=== PATIENT | male | born 1945 | race Caucasian/White ===

== ENCOUNTER → 2024-01-25 09:14 | Outpatient (REF) | payer MEDICARE, OTHER, SELFPAY | LOC: RAD 09:14 | PROVIDERS: ATTENDING PHYSICIAN Otolaryngology; FAMILY PHYSICIAN Family Medicine | DX: K21.9 Gastro-esophageal reflux disease without esophagitis (principal); R13.14 Dysphagia, pharyngoesophageal phase | CPT/HCPCS: 74221 ==

== ENCOUNTER 2024-03-03 23:46 | Inpatient (IN) | payer MEDICARE, OTHER, SELFPAY ==
[2024-03-03 15:02] VITALS: BP 154/71
--- NOTE | 2024-03-03 18:40 | ED.GENMED ---
History of Present Illness
<Sara Rubi PA-C - Last Filed: 03/04/24 15:47>
General
Chief Complaint: Back Pain
Source: patient
Exam Limitations: none
Time Seen by Provider: 03/03/24 17:17
Nursing documentation reviewed up to this point in time: agreed with
History of Present Illness
History of Present Illness:
pt is a 78 y/o F with h/o afib on eliquis, htn, hld, diverticulitis s/p sigmoidectomy, BPH/frequent urination
here with severe left hip/buttocks pain into anterior part of left thigh to knee x 10 days
says it was mild and he was more ambulatory initially
sypmtoms onset without inciting injury
he was taking tylenol at home without rleief so 1 week ago saw his PCP who gave him 5 days pred 20 mg bid which he completed 2 days ago and he had no change to pain so he was in communication with pcp about imaging but suddenly after walking to the
bathroom last night he had severe pain in the hip and since cannot move the hip without severe pain
pt has chronic urinary frequency but today has been voiding more than normal but without pain
he has no urinary incontience
chrnoically has some stool urge issues, doesn't feel the urge until he nearly has to go, but he usually makes it to the bathroom and that symptom is no worse
he has not had any trouble with urinary incontiennce tday
he feels numbness from left hip to anterior thigh just prox to knee
but no weakness
no fever
Past History
<Sara Rubi PA-C - Last Filed: 03/04/24 15:47>
Past History
ED Past Medical History: HTN and Other (Diverticulitis)
ED Past Surgical History: Appendectomy, Orthopedic (Wrist surgery) and Tonsilectomy
Social History
Tobacco: Smoker
Alcohol: Occasional
Drug: None
Personal:
Living: with family
Employment: Employed
Review of Systems
<Sara Rubi PA-C - Last Filed: 03/04/24 15:47>
Review of Systems
Allergies reviewed?: Yes
All Other Systems: Not applicable
Phy Exam
<LEELA Lloyd Last Filed: 03/04/24 15:47>
Physical Exam
Physical Exam:
GENERAL: Alert , in no apparent distress, comfortable at rest
HEAD: NCAT
CARDIAC: Regular rate and rhythm, no edema
LUNGS: Clear breath sounds bilaterally, no acute respiratory distress, no wheezes/rales/rhonchi
ABDOMEN: Soft, without focal tenderness, no r/g, no cvat, normal bowel sounds, nondistended
NEUROLOGICAL: Alert and oriented, no focal neuro deficits, CN intact, 5/5 strength, sensation intact, ambulation slight limp left leg
SKIN: Warm and dry, no redness to hip/back
MUSCULOSKELETAL: No edema, well perfused. Normal inspection of the left hip, left leg
Patient has no tenderness to palpation of the hip, minimal tenderness in the SI joint
severe pain with hip flexion and rotation
normal strength distally
normal senseation distally
has some subjective dec sensation to light touch to anterior thigh
posterior thigh normal
Back: nontender
pain in the L hip region with hip flexion
no radicular pain down leg but really unable to range the hip
PSYCH: Normal and appropriate interaction.
Course
<Sara Rubi PA-C - Last Filed: 03/04/24 15:47>
Orders/Labs/Results
Orders:
Orders
03/03/24 17:58
CT Lumbar Spine W/o Iv Contras Urgent
Comment:
Reason For Exam: severe loewr back pain/L hip pain, cannot walk
CT Pelvis W/o Iv Contrast Urgent
Comment:
Reason For Exam: severe left hip pain, no trauma
Bladder Scan- Treatment ONCE
HYDROmorphone [Dilaudid] 0.5 mg IV NOW STA
03/03/24 18:01
Hip, Left 2-3 Views [CR Hip - LT w/wo Pel 2-3 Vw*] Urgent
Comment:
Reason For Exam: left hip pain no trauma, severe
Include a pelvis x-ray?: Yes
Lumbar Spine Complete, 4 View [CR Lumbar Spine Comp Min 4 Vw*] Urgent
Comment:
Reason For Exam: lower back pain, severe
03/03/24 18:44
Complete Blood Count/With Diff Urgent
Comprehensive Metabolic Panel Urgent
03/03/24 19:14
Urinalysis Reflex To Culture Urgent
Date Specimen was Collected: 03/03/24
Time Specimen was Collected: 19:07
03/03/24 20:45
Oxycodone/Acetaminophen [Percocet 5/325] 1 tablet PO NOW STA
03/03/24 23:45
Consult Hematology [HEMATOLOGY CONSULT] Routine
Consulting Provider: Halie Armas
Was physician already notified: No
Reason for consult: new left hip and pelvis lytic lesions with pain
03/03/24 23:46
Consult Notification Routine
Specialty to Notify: Hematology
Date consulting provider notified: 03/04/24
Time consulting provider notified: 08:18
Notified:: Provider
Comment: halie armas
Abnormal Lab Results
03/03/24
18:44
WBC 13.2 H 10^3/uL
(4.8-10.8)
RBC 4.37 L 10^6/uL
(4.70-6.10)
RDW 15.4 H %
(11.5-14.5)
Abs Immat Gran (auto) 0.1 H 10^3/uL
(0-0.05)
Absolute Neuts (auto) 10.1 H 10^3/uL
(1.4-6.5)
Absolute Monos (auto) 1.0 H 10^3/uL
(0.1-0.6)
Immature Gran % 0.8 H %
(0-0.5)
Neutrophils % 76.5 H %
(42.2-75.2)
Lymphocytes % 13.7 L %
(20.5-51.1)
BUN 33 H mg/dl
(9-20)
ALT 68 H U/L
(0-50)
03/03/24 18:44
03/03/24 18:44
Vital Signs
Initial and Last Documented VS:
Initial Vital Signs
Temp Pulse Resp BP Pulse Ox
98.3 F 64 18 154/71 98
03/03/24 15:02 03/03/24 15:02 03/03/24 15:02 03/03/24 15:02 03/03/24 15:02
Last Documented Vital Signs
Temp Pulse Resp BP Pulse Ox
98.4 F 67 18 138/63 96
03/04/24 15:26 03/04/24 15:26 03/04/24 15:26 03/04/24 15:26 03/04/24 15:26
<ALFREDITO Chopra - Last Filed: 03/03/24 22:55>
Orders/Labs/Results
Orders:
Orders
03/03/24 17:58
CT Lumbar Spine W/o Iv Contras Urgent
Comment:
Reason For Exam: severe loewr back pain/L hip pain, cannot walk
CT Pelvis W/o Iv Contrast Urgent
Comment:
Reason For Exam: severe left hip pain, no trauma
Bladder Scan- Treatment ONCE
HYDROmorphone [Dilaudid] 0.5 mg IV NOW STA
03/03/24 18:01
Hip, Left 2-3 Views [CR Hip - LT w/wo Pel 2-3 Vw*] Urgent
Comment:
Reason For Exam: left hip pain no trauma, severe
Include a pelvis x-ray?: Yes
Lumbar Spine Complete, 4 View [CR Lumbar Spine Comp Min 4 Vw*] Urgent
Comment:
Reason For Exam: lower back pain, severe
03/03/24 18:44
Complete Blood Count/With Diff Urgent
Comprehensive Metabolic Panel Urgent
03/03/24 19:14
Urinalysis Reflex To Culture Urgent
Date Specimen was Collected: 03/03/24
Time Specimen was Collected: 19:07
03/03/24 20:45
Oxycodone/Acetaminophen [Percocet 5/325] 1 tablet PO NOW STA
03/03/24 23:45
Consult Hematology [HEMATOLOGY CONSULT] Routine
Consulting Provider: Halie Armas
Was physician already notified: No
Reason for consult: new left hip and pelvis lytic lesions with pain
03/03/24 23:46
Consult Notification Routine
Specialty to Notify: Hematology
Date consulting provider notified: 03/04/24
Time consulting provider notified: 08:18
Notified:: Provider
Comment: halie armas
Abnormal Lab Results
03/03/24
18:44
WBC 13.2 H 10^3/uL
(4.8-10.8)
RBC 4.37 L 10^6/uL
(4.70-6.10)
RDW 15.4 H %
(11.5-14.5)
Abs Immat Gran (auto) 0.1 H 10^3/uL
(0-0.05)
Absolute Neuts (auto) 10.1 H 10^3/uL
(1.4-6.5)
Absolute Monos (auto) 1.0 H 10^3/uL
(0.1-0.6)
Immature Gran % 0.8 H %
(0-0.5)
Neutrophils % 76.5 H %
(42.2-75.2)
Lymphocytes % 13.7 L %
(20.5-51.1)
BUN 33 H mg/dl
(9-20)
ALT 68 H U/L
(0-50)
03/03/24 18:44
03/03/24 18:44
Vital Signs
Initial and Last Documented VS:
Initial Vital Signs
Temp Pulse Resp BP Pulse Ox
98.3 F 64 18 154/71 98
03/03/24 15:02 03/03/24 15:02 03/03/24 15:02 03/03/24 15:02 03/03/24 15:02
Last Documented Vital Signs
Temp Pulse Resp BP Pulse Ox
98.4 F 67 18 138/63 96
03/04/24 15:26 03/04/24 15:26 03/04/24 15:26 03/04/24 15:26 03/04/24 15:26
<Sara Rubi PA-C - Last Filed: 03/04/24 15:47>
MDM/Problems Addressed
Differential Diagnosis Includes:
calcific tendinitis, bursitis, compression fracture, pathologic fracture
less likely cauda equina less lkely setpic arthritis
MDM/Problems Addressed:
78 y/o M with atraumatic L hip pain that seems to radiate from left buttock to anterior thigh with numbness
no weaknesss
no new incontience
no fever
on exam pt has pretty severe pain with hip ROM
no distal weakness/numbness
urinating frequently but this is slightly worse than baseline, which is frequent to begin with
bladder scan pvr 36 ml
d/w dr. marie
my suspicion is more for hip pathology (bursitis, calcific tendinitis, arthritis, pathologic fx) rather than lumbar radiculpathy but has h/o lumbar radiculopathy on the L
will start with xrays but likely will need ct scan
xrays show severe djd of the lumbar spine
arthritis L hip
appreciate leukocytosis but he was just on steroids
pt has tried tylenol without relief
he does wish to aovid opiates if possible, h/o alcohol abuse previously
<ALFREDITO Chopra - Last Filed: 03/03/24 22:55>
MDM/Problems Addressed
MDM/Problems Addressed:
78 y/o M with atraumatic L hip pain that seems to radiate from left buttock to anterior thigh with numbness
no weaknesss
no new incontience
no fever
on exam pt has pretty severe pain with hip ROM
no distal weakness/numbness
urinating frequently but this is slightly worse than baseline, which is frequent to begin with
bladder scan pvr 36 ml
d/w dr. marie
my suspicion is more for hip pathology (bursitis, calcific tendinitis, arthritis, pathologic fx) rather than lumbar radiculpathy but has h/o lumbar radiculopathy on the L
will start with xrays but likely will need ct scan
xrays show severe djd of the lumbar spine
arthritis L hip
appreciate leukocytosis but he was just on steroids
pt has tried tylenol without relief
he does wish to aovid opiates if possible, h/o alcohol abuse previously
Assumed care of pt . Pt feeling better from Narcotic medication. Family at bedside. CT pelvis shows multiple lytic lesions which are highly suspicious for neoplastic disease bony metastatic disease would be the leading consideration multiple
myeloma is also differential with lymphoma. No evidence for pathologic fracture. Pt unable to bear weight will require admission. d/c w/ Admitting hospitalist.
Chronic conditions affecting care:
hx of previous lung ca(had radiation) afib, sleep apnea htn
<ALFREDITO Chopra - Last Filed: 03/03/24 22:55>
*Critical Care Note
Total Time (30-74mins, 75-104mins- exclusive of procedures): Not Applicable
ED Attending Note
<Sara Rubi PA-C - Last Filed: 03/04/24 15:47>
-
Portions of this chart may have been created with voice recognition software.� Occasional wrong word or��sound alike� substitutions may have occurred due to the inherent limitations of voice recognition software.
Discharge Plan
Departure
Patient Disposition: Admit
Date of Disposition: 03/03/24
Time of Disposition: 22:54
Admit to: Med/Surg
Admit to doctor: gopal
Presentation/result/management discussed w/ accepting MD/DO: Hospitalist
Patient with high blood pressure during this ER visit?: Yes
Condition: Fair
Covid-19: Not Applicable
Discharge Problem:
intractable left hip pain, Cancer, metastatic to bone
Interventions
Interventions:
*Risk Screen - Suicide Last Done: 03/03/24 15:02
*General Assessment Last Done: 03/03/24 15:02
*Neglect/Abuse Screening Last Done: 03/03/24 15:02
ED- Fall Risk Assessment Last Done: 03/03/24 16:17
*Nursing Disposition Last Done: 03/04/24 00:57
ED-Musculoskeletal Assessment Last Done: 03/03/24 16:17
Discharge Date and Time
Discharge Date/Time: 03/04/24 00:58
[2024-03-03] MEDS: DILAUDID 0.5 MG IV (18:45)
[2024-03-03 18:56] LABS: % Basophils 0.4 % (0-2); % Eosinophils 1.1 % (0-6); % Immature Granulocytes 0.8 % (0-0.5); % Lymphocytes 13.7 % (20.5-51.1); % Monocytes 7.5 % (1.7-9.3); % Neutrophils 76.5 % (42.2-75.2); Absolute Basophils 0.1 10^3/uL (0-0.2); Absolute Eosinophils 0.2 10^3/uL (0-0.7); Absolute Immature Granulocytes 0.1 10^3/uL (0-0.05); Absolute Lymphocytes 1.8 10^3/uL (1.2-3.4); Absolute Neutrophils 10.1 10^3/uL (1.4-6.5); Hematocrit 40.3 % (39.0-52.0); Hemoglobin 13.4 g/dL (13.0-18.0); Mean Corp Hgb Conc. 33.3 g/dL (33.0-37.0); Mean Corpuscular Hgb 30.7 pg (27.0-31.0); Mean Corpuscular Volume 92.2 fL (80.0-94.0); Mean Platelet Volume 10.2 fL (7.4-10.4); Nucleated Red Blood Cells % 0 % (-); Platelet Count 362 10^3/uL (130-400); Red Blood Cell Count 4.37 10^6/uL (4.70-6.10); Red Cell Dist. Width 15.4 % (11.5-14.5); White Blood Cell Count 13.2 10^3/uL (4.8-10.8)
[2024-03-03 19:13] LABS: ALT (SGPT) 68 U/L (0-50); AST (SGOT) 45 U/L (17-59); Albumin 4.3 g/dl (3.5-5.0); Alkaline Phosphatase 78 U/L (38-126); Blood Urea Nitrogen 33 mg/dl (9-20); Calcium 9.9 mg/dl (8.4-10.2); Carbon Dioxide 30 mmol/L (22-30); Chloride 103 mmol/L (98-107); Glucose 88 mg/dl (70-99); Potassium 4.8 mmol/L (3.5-5.1); Sodium 140 mmol/L (135-145); Total Bilirubin 0.6 mg/dl (0.2-1.3); Total Protein 6.8 g/dl (6.3-8.2); eGFR > 60.00
[2024-03-03 19:23] LABS: Urine Albumin Negative (Neg - Trace); Urine Bilirubin Negative (Negative); Urine Character Clear (Clear); Urine Color Yellow; Urine Glucose Negative (Negative); Urine Ketone Negative (Negative); Urine Leukocyte Negative (Negative); Urine Nitrite Negative (Negative); Urine Occult Blood Negative (Negative); Urine Specific Gravity 1.005 (<1.030); Urine Urobilinogen Negative (Neg - 1+)
[2024-03-03 20:11] VITALS: BP 153/72
[2024-03-03] MEDS: PERCOCET 5/325 1 TABLET PO (20:50)
--- NOTE | 2024-03-03 23:17 | HPS.HSE ---
Addendum entered and electronically signed by Alton Stapleton DO 03/04/24 00:46:
Patient seen and examined independently. Agree with findings and plan as set forth by ALFREDITO Crook.
Patient is a 78y M with PMH significant for NSCLC s/p XRT, hypertension, A-Fib and TASIA who presents to ED complaining of L hip pain. Patient states that he has been having pain in the L hip, thigh and knee for the past 3 weeks or so. He denies
any evident fall, injury, trauma, etc. He was seen by his PCP and started on a trial of prednisone with no improvement in his symptoms. His pain became more severe and he was advised to present to the ED for further evaluation.
In the ED this evening, imaging studies reveal evidence of lytic bony lesions in the pelvis and femur.
Ass:
Lytic Bony Lesions
Hip Pain secondary to the above
Atrial Fibrillation / Flutter
Benign Hypertension
TASIA not currently on PAP therapy
BPH
History of NSCLC s/p XRT
BPH
Plan:
Admit for further evaluation and treatment
Continue supportive care / pain control efforts.
PT / OT evaluations.
Oncology evaluation for additional recommendations / next steps.
Will likely require biopsy for definitive diagnosis.
Continue usual home medication regimen for now.
Original Note:
Family Physician
-
Family Physician: Jimenez Fitzpatrick
Chief Complaint
-
Left hip to left buttocks to left thigh/knee pain x 3 weeks
History of Present Illness
78-year-old male complaining of severe left hip pain to buttocks into left thigh to knee x 3 weeks. He was seen by his PCP 1 week ago started on prednisone 20 mg twice daily for 5 days which she completed 2 days ago on
03/01/2024 with no change in his pain. His pain became very severe last night and he was advised to come to the ER for evaluation by his PCP. He denies injury or fall, fever, chills, chest pain, bowel or bladder loss, abdominal pain, nausea,
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
sinus of Valsalva, non-small cell lung cancer right upper lung radiation 2018, former alcoholic stopped heavy drinking 15 years ago and occasional drinking in 2022 diverticulosis with abscess diverticuli and colon resection required,chronic
constipation,�hernia,polyps, OA, cataracts, sleep apnea noncompliant with BiPAP
Medical History
Past Medical History
Past Medical History: Reports Other ( HTN, HLD, known abnormal EKG, smoker, diverticulosis,diverticular abscess requiring colon resection, ascending aortic aneurysm chronic constipation, hernia, polyps, BPH, urinary frequency, OA, cataracts, chronic
neck and back pain, former alcoholic stopped 15 years ago, former heavy smoker stopped )
Past Surgical History: Reports Other (Left wrist carpectomy 2007, right inguinal hernia repair 2013, cataract extraction bilateral 2015, appendectomy, tonsillectomydiverticular abscess requiring colon resection, ascending aortic aneurysm)
Social History
Tobacco: Smoker (Prior 60-year 1.5 pack a day quit March 2019)
Alcohol: Former (Stopped 15 years ago)
Drug: None
Personal:
Living: With Family ()
Employment: Retired
Family History
Family History: Other (Mother DVT/PE, father cardiomyopathy)
Allergies / Home Medications
Allergies reflects when Allergies were last updated in [employer]
Home Medications with original date entered in [employer]
Allergy/Medication List:
Allergies
Allergy/AdvReac Type Severity Reaction Status Date / Time
adhesive Allergy SEE COMMENT Verified 03/03/24 15:02
Hayfever Allergy Sneezing, Uncoded 03/03/24 15:02
watery/itchy
eyes,
stuffy nose
Home Medications
ramipril 5 mg capsule 5 mg PO QPM Blood Pressure 08/15/18
rosuvastatin 20 mg tablet 20 mg PO QPM High Cholesterol 08/15/18
acetaminophen 500 mg tablet (Tylenol Extra Strength) 500 mg PO Q6HPRN PRN mild pain 04/09/23
brinzolamide 1 %-brimonidine 0.2 % eye drops,suspension (Simbrinza) 1 drp RIGHT EYE BID Eye Condition 04/09/23
uumhxwpvmgrz-jgejuafz-ipleia tablet 2 tab PO DAILY Supplement 04/09/23
travoprost 0.004 % eye drops 1 drp BOTH EYES HS Eye Condition 04/09/23
umeclidinium 62.5 mcg-vilanterol 25 mcg/actuation powdr for inhalation (Anoro Ellipta) 1 inh inhalation R QPM Lung/Breathing Issues 04/09/23
apixaban 5 mg tablet (Eliquis) 5 mg PO BID #60 tabs 04/10/23
Fiber Gummies 4 tab PO DAILY 03/03/24
metoprolol succinate 25 mg tablet,extended release 24 hr 12.5 mg PO QPM 03/03/24
omeprazole 40 mg capsule,delayed release 40 mg PO DAILY 03/03/24
Review of Systems
-
History Source: Patient and Family ( and son at bedside)
A 12 point ROS was completed and negative except as noted: Yes
Constitutional: Denies Fever, Weight Loss or Chills
EENT: Denies Sore Throat or Runny Nose
Respiratory: Denies Cough or Trouble Breathing
Cardiac: Denies Chest Pain, Diaphoresis, Palpitations or Syncope
Abdomen/GI: Denies Abdominal Pain, Nausea, Vomiting, Diarrhea, Constipated, Bloody Stools or Black Stools
: Denies Dysuria, Frequency, Flank Pain, Incontinence, Difficulty Voiding or Urgency
Musculoskeletal: Reports Joint Pain (Left hip to left thigh, left knee left buttocks); Denies Edema
Skin: Denies Itching or Rash
Neurological: Denies Dizzy, Headache or Weakness
Endocrine: Reports No Symptoms
Hematologic/Lymphatic: Reports No Symptoms
Psych: Reports Calm
Physical Exam
Vital Signs
Vital Signs
Temp Pulse Resp BP Pulse Ox
98.3 F 66 18 153/72 98
03/03/24 15:02 03/03/24 20:11 03/03/24 20:11 03/03/24 20:11 03/03/24 20:11
Physical Exam
General: Comfortable (After Percocet) and Conversant; No Fever or Chills
HEENT: NormoCephalic, Anicteric, Moist mucous membranes, PERRLA, [place] Conjunctivae and No Ptosis
Respiratory: Clear; No Wheezes, Rales or Rhonchi
Cardiac: S1/S2 and Regular Rhythm; No Murmur, Rub, Gallop or Peripheral Edema
GI: Soft, Non Tender, Non Distended and Normal Bowel Sounds
Rectal: Deferred by Provider
Genito-urinary: Deferred by me
Musculoskeletal: No Clubbing, No Cyanosis, No Edema and Other (Patient received Percocet in ER has no current pain is able to cross legs did have prior pain in left buttocks to left hip radiating to left knee and thigh)
Skin: Warm and Dry; No Rash or Jaundice
Neuro: AO x 3, No Motor Deficits, Nonfocal/grossly intact, Cranial Nerves Intact and No Sensory Deficits; No Slurred Speech, Facial Droop, Tremors or Sedated
Psych: Calm
Laboratory Results
-
03/03/24 18:44
03/03/24 18:44
Laboratory Results
Total Bilirubin 0.6 mg/dl (0.2-1.3) 03/03/24 18:44
AST 45 U/L (17-59) 03/03/24 18:44
ALT 68 U/L (0-50) H 03/03/24 18:44
Alkaline Phosphatase 78 U/L (38-126) 03/03/24 18:44
Data Reviewed
-
Diagnostic Radiology: Report Reviewed by me
CT Scan: Report Reviewed by me
Lab Data: Labs Reviewed by me
Impression/Plan
-
Impression/plan:
Admit to MedSurg
#Left hip pain possible neoplasm new/Multiple lytic lesions in the pelvis concerning for Neoplasm
-Consult Oncology
-PT/OT/case management consult
-Pain control Dilaudid severe pain, oxycodone/acetaminophen moderate pain, Tylenol as needed
PT/OT/case management eval
Left hip x-ray: Well-defined lucency involving lateral aspect of the left proximal femur at the base of the greater trochanter new since previous examinations neoplasm cannot be excluded
consider MRI of left hip with and without contrast
Pelvis CT with IV contrast: Multiple lytic lesions highly suspicious for neoplastic disease. Bony metastatic disease would be leading consideration versus multiple myeloma
Lumbar spine: No evidence of fracture. Levoconvex scoliosis. DDD lumbar spine
#Leukocytosis secondary to recent steroid for left hip pain
WBC 13.2 no left shift, afebrile
Follow CBC
#chronic constipation-will give bowel regimen given narcotics for pain control
#sleep apnea noncompliant with BiPAP
-Will monitor pulse ox give supplemental O2 given patient need for narcotics for pain
#A-fib/flutter Dx March 2023
Hx [facility]INO cardioversion 04/10/2023
-Continue Eliquis 5 mg twice daily, metoprolol succinate 12.5 mg every afternoon
-Follows with [facility]ology
#Hypertension -benign
-Continue ramipril 5 mg every afternoon, metoprolol succinate 12.5 mg every afternoon
�#HLD
-Check lipid profile
-Continue Crestor 20 mg daily
#Lung cancer non-small cell right upper lung with radiation 2018
-Former smoker 60-year 1 and half pack a day quit March 2019
-Follows with radiation oncology last CT scan was May 2023
-Continue Anoro Ellipta
�#BPH/urinary frequency hx
-No reported meds
#Chronic neck and right shoulder pain
-Continue Tylenol as needed
#Former alcoholic
-Drank heavily for 30 years stopped 15 years ago
Stopped occasional alcohol March 2023
Other PMH:
diverticulosis with abscess diverticuli and colon resection required
hernia
polyps
OA
cataracts
DVT prophylaxis
Continue [employer] Eliquis
DNR per patient
[2024-03-04 00:56] VITALS: BP 145/79
[2024-03-04 01:02] VITALS: BP 143/66; BMI 20.5
[2024-03-04] MEDS: ELIQUIS 5 MG PO ×2 (01:28→08:17)
[2024-03-04] MEDS: TOPROL XL 12.5 MG PO (01:29)
[2024-03-04] MEDS: ROXICODONE 5 MG PO ×3 (01:45→10:31)
--- NOTE | 2024-03-04 02:36 | PTCARENOTE ---
Receive pt from ER. Pt alert oriented X3, calm and cooperative. Pt complains about about a radiating sharp pain from the left buttock to the left hip to the distal leg. tHE PAIN IS 8/10 AND '20/10' WITH MOVEMENT. Pt also complains about numbness of
the left hip/left leg. Pt states that he is not able to stand or do much movement because of the left buttock/hip pain. Pt moved himself from the stretcher to his bed. Pt oriented to the room, call torres within reach and bed alarm placed for pt's
safety. VSS (T=98.1, HR=71, RR=20, HE=474/66, SpO2=95% on RA). Oxycodone 5 mg given to the pt for pain and condom catheter placed with agreement with the pt to help with the pain management. Will continue to monitor the pt.
[2024-03-04 06:59] LABS: % Basophils 0.4 % (0-2); % Eosinophils 1.2 % (0-6); % Immature Granulocytes 0.5 % (0-0.5); % Lymphocytes 11.7 % (20.5-51.1); % Monocytes 11.1 % (1.7-9.3); % Neutrophils 75.1 % (42.2-75.2); Absolute Eosinophils 0.1 10^3/uL (0-0.7); Absolute Immature Granulocytes 0.1 10^3/uL (0-0.05); Absolute Lymphocytes 1.1 10^3/uL (1.2-3.4); Absolute Monocytes 1.1 10^3/uL (0.1-0.6); Absolute Neutrophils 7.3 10^3/uL (1.4-6.5); Hematocrit 37.5 % (39.0-52.0); Hemoglobin 12.5 g/dL (13.0-18.0); Mean Corp Hgb Conc. 33.3 g/dL (33.0-37.0); Mean Corpuscular Hgb 30.9 pg (27.0-31.0); Mean Corpuscular Volume 92.8 fL (80.0-94.0); Mean Platelet Volume 10.5 fL (7.4-10.4); Nucleated Red Blood Cells % 0 % (-); Platelet Count 309 10^3/uL (130-400); Red Blood Cell Count 4.04 10^6/uL (4.70-6.10); Red Cell Dist. Width 15.2 % (11.5-14.5); White Blood Cell Count 9.7 10^3/uL (4.8-10.8)
[2024-03-04 07:30] VITALS: BP 113/56
[2024-03-04 07:39] LABS: ALT (SGPT) 50 U/L (0-50); AST (SGOT) 34 U/L (17-59); Albumin 3.6 g/dl (3.5-5.0); Alkaline Phosphatase 67 U/L (38-126); Blood Urea Nitrogen 29 mg/dl (9-20); Calcium 9.1 mg/dl (8.4-10.2); Carbon Dioxide 32 mmol/L (22-30); Chloride 101 mmol/L (98-107); Estimated Creatinine Clearance 60 ml/min; Glucose 90 mg/dl (70-99); Potassium 4.2 mmol/L (3.5-5.1); Sodium 138 mmol/L (135-145); Total Bilirubin 0.6 mg/dl (0.2-1.3); Total Protein 5.8 g/dl (6.3-8.2); eGFR > 60.00
[2024-03-04 08:10] LABS: PSA, Total - Screen 9.07 ng/ml (0.0-4.0)
[2024-03-04] MEDS: PROTONIX 40 MG PO (08:17)
[2024-03-04] MEDS: THERAGRAN 2 TABLET PO (08:18)
[2024-03-04] MEDS: SIMBRINZA 1%-0.2% OPHTH SUSP 1 DROP RIGHT EYE (08:18)
--- NOTE | 2024-03-04 08:25 | CON.ONC ---
Documented by User: [email or web address] Bedoya 03/04/24 09:56
Impression
Impression
stage IB lung adenocarcinoma s/p definitive SBRT 2019, last CT chest w/o IVC surveillance April 2023 showed AVELINA
L hip pain
Lytic lesions bilateral iliac bone with destruction of the posterolateral iliac bone cortex, left proximal femur
elevated PSA
Plan
Plan
check SPEP/LISA, FLC
Staging CT CAP vs PET can be pursued outpatient
IR biopsy to pursue tissue diagnosis - can be pursued OP
Close follow up with XRT -discussed with Dr. Kurtz
Close OP follow up will be arranged upon discharge with Dr. Sandoval
Patient History
History of Present Illness
78yo M presented with left hip pain. He reports pain has been ongoing for the past 3 weeks. His pain extends from his left hip, thigh, and knee. He denies any fall or trauma. His PCP trialed prednisone, however, without improvement of symptoms
which prompted further evaluation in the ER. CT pelvis showed multiple lytic lesions, which are highly suspicious for neoplastic disease. No CT evidence for pathologic fracture. CT L spine showed there is no evidence of a large lytic lesion. There
is slight heterogeneity of marrow signal, and small metastatic lesions within the lumbar spine or possible.Diffuse degenerative changes of the lumbar spine. Left adrenal gland mass which is stable from CT scan of August 28, 2018, compatible with a
left adrenal adenoma. Left hip xray showed a well-defined lucency involving the lateral aspect of the left proximal femur at the base of the greater trochanter, diff dx intraosseous cyst, ganglion, malignancy. Labs reveal WBC 13.2, Hgb 13.4,
Platelets 362,000. He has normal renal function, calcium, and LFTs. His PSA is 9.07
He reports improved pain control after hydromorphone and oxycodone/acetaminophen.
He has a history of stage IB lung adenocarcinoma for which he completed definitive SBRT with Dr. Sorensen 2019. His last surveillance CT chest with IVC April 2023 showed unchanged scarring right upper lobe related to prior radiation therapy and
unchanged 7 mm focal opacity posterior left lower lobe. No findings at CT highly suspicious for recurrent disease
Past-Medical/Surgical History
PMH
Atrial Fibrillation / Flutter on DOAC
Benign Hypertension
TASIA not currently on PAP therapy
BPH
History of NSCLC s/p XRT
BPH
HFrEF
COPD
thyroid nodule
PSH: Left wrist carpectomy 2007, right inguinal hernia repair 2013, cataract extraction bilateral 2015, appendectomy, tonsillectomy, diverticular abscess requiring colon resection 2018, ascending aortic aneurysm
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 , lives with
Family: Mother breast and VTE. Father CLL
Patient Medication
�Medication �Instructions �Recorded �Confirmed �Last Taken �Type
ramipril 5 mg capsule 5 mg PO QPM Blood Pressure 08/15/18 03/03/24 03/02/24 History
rosuvastatin 20 mg tablet 20 mg PO QPM High Cholesterol 08/15/18 03/03/24 03/02/24 History
acetaminophen 500 mg tablet 500 mg PO Q6HPRN PRN mild pain 04/09/23 03/03/24 Unknown History
(Tylenol Extra Strength)
brinzolamide 1 %-brimonidine 0.2 % 1 drp RIGHT EYE BID Eye Condition 04/09/23 03/03/24 03/02/24 History
eye drops,suspension (Simbrinza)
hyecwjsextwv-vssxubhq-lkbdxo tablet 2 tab PO DAILY Supplement 04/09/23 03/03/24 03/02/24 History
travoprost 0.004 % eye drops 1 drp BOTH EYES HS Eye Condition 04/09/23 03/03/24 03/02/24 History
umeclidinium 62.5 mcg-vilanterol 1 inh inhalation R QPM 04/09/23 03/03/24 03/02/24 History
25 mcg/actuation powdr for Lung/Breathing Issues
inhalation (Anoro Ellipta)
apixaban 5 mg tablet (Eliquis) 5 mg PO BID #60 tabs 04/10/23 03/03/24 03/03/24 Rx
Fiber Gummies 4 tab PO DAILY 03/03/24 03/03/24 03/02/24 History
metoprolol succinate 25 mg 12.5 mg PO QPM 03/03/24 03/03/24 03/02/24 History
tablet,extended release 24 hr
omeprazole 40 mg capsule,delayed 40 mg PO DAILY 03/03/24 03/03/24 03/02/24 History
release
Active Medications
Generic Name Dose Route Start Last Admin
Trade Name Freq PRN Reason Stop Dose Admin
Acetaminophen 650 mg 03/04/24 00:56
Acetaminophen 325 Mg Tablet PO 04/01/24 00:55
Q4HPRN PRN
mild pain/GRIJALVA/temp> 100.4F
Apixaban 5 mg 03/04/24 08:00 03/04/24 08:17
Apixaban (Eliquis) 5 Mg Tablet PO 04/01/24 07:59 5 mg
BID RAFAEL Administration
Bisacodyl 10 mg 03/04/24 00:56
Bisacodyl 10 Mg Rectal Suppository RECTAL 04/01/24 00:55
[id number] PRN
constipation
Brinzolamide/Brimonidine Tartrate 1 drop 03/04/24 08:00 03/04/24 08:18
Brinzolamide 1%/Brimonidine 0.2% (Ophth Susp) 8 Ml Bottle RIGHT EYE 04/01/24 07:59 1 drop
BID RAFAEL Administration
Hydromorphone HCl 0.5 mg 03/04/24 00:56
Hydromorphone 0.5 Mg/0.5 Ml Syringe IV 03/18/24 00:55
Q4HPRN PRN
severe pain
Latanoprost 1 drop 03/04/24 22:00
Latanoprost 0.005% (Ophthalmic Solution) 2.5 Ml Bottle BOTH EYES 04/01/24 21:59
HS RAFAEL
Metoprolol Succinate 12.5 mg 03/04/24 18:00
Metoprolol 12.5 Mg Extended Release Dose (1/2 Of 25 Mg Xl Tablet) PO 04/01/24 17:59
QPM RAFAEL
Multivitamins Therapeutic 2 tablet 03/04/24 08:00 03/04/24 08:18
Multivitamin Tablet PO 04/01/24 07:59 2 tablet
DAILY RAFAEL Administration
Olodaterol 2 puff 03/04/24 08:00
Olodaterol (Striverdi Respimat) 2.5 Mcg Inhaler INH 04/01/24 07:59
R DAILY RAFAEL
Ondansetron HCl 4 mg 03/04/24 00:56
Ondansetron 4 Mg/2 Ml Vial IV 04/01/24 00:55
Q6HPRN PRN
nausea and vomiting
Oxycodone HCl 5 mg 03/04/24 00:56 03/04/24 06:31
Oxycodone 5 Mg Regular Release Tablet PO 03/18/24 00:55 5 mg
Q4HPRN PRN Administration
moderate pain
Pantoprazole Sodium 40 mg 03/04/24 08:00 03/04/24 08:17
Pantoprazole 40 Mg Delayed Release Tablet PO 04/01/24 07:59 40 mg
DAILY RAFAEL Administration
Polyethylene Glycol 17 grams 03/04/24 00:56
Polyethylene Glycol Powder 17 Grams Packet PO 04/01/24 00:55
DAILYPRN PRN
constipation
Ramipril 5 mg 03/04/24 18:00
Ramipril (Altace) 5 Mg Capsule PO 04/01/24 17:59
QPM RAFAEL
Rosuvastatin Calcium 20 mg 03/04/24 18:00
Rosuvastatin (Crestor) 20 Mg Tablet PO 04/01/24 17:59
QPM RAFAEL
Senna/Docusate Sodium 1 tablet 03/04/24 00:56
Docusate W/Senna (Page-Colace) Tablet PO 04/01/24 00:55
BIDPRN PRN
constipation
Sodium Chloride 0 flush 03/04/24 01:00
Sodium Chloride 0.9% (Flush) Syringe IV 04/01/24 00:59
PER PROTOCOL RAFAEL
Tiotropium [place] 2 puff 03/04/24 08:00
Tiotropium (Spiriva Respimat) 2.5 Mcg Inhaler INH 04/01/24 07:59
R DAILY RAFAEL
Review of Systems
-
Review of systems notable HPI, otherwise negative
Physical Exam
-
General: No Apparent Distress
HEENT: Moist Mucous Membranes; Negative Jaundice
Cardiology: S1 and S2
Pulmonary: Clear
GI: Soft
Extremities: Pulses Present; Negative Edema
Neurology: Non Focal
Skin: Warm
Hematologic / Lymphatic: No Petechiae
Psych: Calm
Labs
Lab Results
WBC 9.7 10^3/uL (4.8-10.8) 03/04/24 05:58
RBC 4.04 10^6/uL (4.70-6.10) L 03/04/24 05:58
Hgb 12.5 g/dL (13.0-18.0) L 03/04/24 05:58
Hct 37.5 % (39.0-52.0) L 03/04/24 05:58
MCV 92.8 fL (80.0-94.0) 03/04/24 05:58
MCH 30.9 pg (27.0-31.0) 03/04/24 05:58
MCHC 33.3 g/dL (33.0-37.0) 03/04/24 05:58
RDW 15.2 % (11.5-14.5) H 03/04/24 05:58
Plt Count 309 10^3/uL (130-400) 03/04/24 05:58
MPV 10.5 fL (7.4-10.4) H 03/04/24 05:58
Abs Immat Gran (auto) 0.1 10^3/uL (0-0.05) H 03/04/24 05:58
Absolute Neuts (auto) 7.3 10^3/uL (1.4-6.5) H 03/04/24 05:58
Absolute Lymphs (auto) 1.1 10^3/uL (1.2-3.4) L 03/04/24 05:58
Absolute Monos (auto) 1.1 10^3/uL (0.1-0.6) H 03/04/24 05:58
Absolute Eos (auto) 0.1 10^3/uL (0-0.7) 03/04/24 05:58
Absolute Basos (auto) 0.0 10^3/uL (0-0.2) 03/04/24 05:58
Immature Gran % 0.5 % (0-0.5) 03/04/24 05:58
Neutrophils % 75.1 % (42.2-75.2) 03/04/24 05:58
Lymphocytes % 11.7 % (20.5-51.1) L 03/04/24 05:58
Monocytes % 11.1 % (1.7-9.3) H 03/04/24 05:58
Eosinophils % 1.2 % (0-6) 03/04/24 05:58
Basophils % 0.4 % (0-2) 03/04/24 05:58
Creatinine 0.9 mg/dL (0.7-1.3) 03/04/24 05:58
Vital Signs
Vital Signs
Temp Pulse Resp BP Pulse Ox
98.1 F 71 19 143/66 95
03/04/24 01:02 03/04/24 01:29 03/04/24 01:02 03/04/24 01:29 03/04/24 01:33

Documented by User: Melissa Stinson MD 03/04/24 10:03
Plan
Plan
Suspect metastatic lung cancer; prostate cancer, myeloma, lymphoma - less likely
Will arrange outpatient biopsy of left iliac mass w/ IR; okay per cardiology to hold Eliquis if IR deems necessary
check SPEP/LISA, FLC. PSA chronically slightly elevated (~6 per patient, now 9)
d/w Rad Onc, who will facilitate outpatient f/u for palliative RT
Pain better controlled w/ low dose opioids
Staging CT CAP will be arranged as outpatient
Close OP follow up will be arranged upon discharge with Dr. Sandoval
Okay for d/c from onc perspective
Review of Systems
-
History Source: Patient
Constitutional: Reports Weight Loss (10 lbs)
Respiratory: Denies Cough or Trouble Breathing
Cardiac: Denies Chest Pain
GI: Denies Nausea or Vomiting
Musculoskeletal: Denies Edema
Neuro: Denies Headache or Weakness
Hematologic/Lymphatic: Denies Bleeding or Bruising
--- NOTE | 2024-03-04 08:56 | W.PN.HOSP.TC ---
Addendum entered and electronically signed by Memo Chavez MD 03/04/24 14:59:
obtain spep/upep/imflc/kllc
pain management
outpt bx
onc and rad onc outpt eval
dc home
Original Note:
Today's Communication/Plan
-
.
Assessment / Plan
Assessment / Plan
Patient is a 78-year-old male with past medical history of NSCLC status post XRT, hypertension, A-fib and TASIA with left hip pain.
Lytic bony lesions in pelvis and femur
� CT abdomen pelvis showed multiple lytic lesions, suspicious of neoplastic disease
� Continue pain management with oxycodone 5 mg Q4H. Can also continue Tylenol extra strength and Ibuprofen as needed.
�Patient to be discharged with 3-day oxycodone prescription. Follow-up with primary care for additional pain support
� Oncology consulted. Input appreciated
- Per oncology, Patient scheduled to see radiation oncology on Sunday for consideration of palliative radiation for pain. Outpatient IR biopsy to pursue tissue diagnosis. Staging CT CAP versus PET outpatient
A-fib
� Cardioversion in 2022
� Continue Eliquis and metoprolol
�Continue to follow with [facility] cardiology outpatient
Hypercholesterolemia
� Continue rosuvastatin
Hypertension
� Continue home medication metoprolol and ramipril
GERD
� Continue omeprazole
Ocular surgery
� Continue Simbrinza drops for right eye
History of non-small cell lung cancer
� Completed radiation therapy in 2018
� Last CT scan was May 2023
� Former smoker, quit 2018
� Continue Anoro Ellipta
DVT prophylaxis�Eliquis
DNR
Anticipated Discharge: Today
Subjective/Interval History
-
Date of Service: March 04, 2024
Patient reports no overnight events. He states that at time of arrival, pain was 10+/10. After Dilaudid and oxycodone, patient states pain is added to when not moving and about a 6 when moving. Otherwise, patient reports no headaches, nausea,
vomiting, diarrhea, constipation, chest pain, shortness of breath, abdominal pain. Patient has history of lung cancer, treated with radiation in 2019.
Objective Data
-
Labs:
Laboratory Results
03/04/24
05:58
WBC 9.7
Hgb 12.5 L
Hct 37.5 L
Plt Count 309
Sodium 138
Potassium 4.2
Chloride 101
Carbon Dioxide 32 H
BUN 29 H
Creatinine 0.9
Glucose 90
Calcium 9.1
Total Bilirubin 0.6
AST 34
ALT 50
Alkaline Phosphatase 67
Vital Signs:
Vital Signs
Temp Pulse Resp BP Pulse Ox
97.6 F 66 18 113/56 93
03/04/24 07:30 03/04/24 07:30 03/04/24 07:30 03/04/24 07:30 03/04/24 07:30
I&O
03/03/24 03/04/24 03/05/24
06:59 06:59 06:59
Intake Total 0 / 0
Output Total 500 / 500
Balance -500 / -500
Review of Systems
-
History Source: Patient
Constitutional: Reports No Symptoms
EENT: Reports No Symptoms Reported
Respiratory: Reports No Symptoms
Cardiac: Reports No Symptoms
Abdomen/GI: Reports No Symptoms
Genitourinary: Reports No Symptoms
Musculoskeletal: Reports Other (Left hip to knee pain)
Skin: Reports No Symptoms
Neuro: Reports No Symptoms
Physical Exam
-
General: Well Developed, No Apparent Distress, Comfortable and Conversant
HEENT: Normocephalic and Atraumatic
Respiratory: Clear to Auscultation
Cardiac: Regular Rhythm and S1/S2
GI: Soft, Nontender, Nondistended and Normal Bowel Sounds
Musculoskeletal: No Clubbing, No Cyanosis and No Edema
Skin: Warm and Dry
Neuro: AO x 3
Psych: Calm
--- NOTE | 2024-03-04 13:27 | W.DCSUMMARY ---
Documented by User: Daniel Chavez DO, Resident 03/04/24 13:48
Discharge Summary
Discharge Data
Date of Admission: 03/03/24
Date of Discharge: 03/04/24
Total time spent discharging patient (in min): 30
-
Pending Results: Yes
Additional Pending Results:
SPEP, Intermediate Free Light Chains, Free light chains
Hospital Course
Hospital diagnosis�left hip pain with new pelvic lytic lesions
Diagnosis prior to admission
Non-small cell lung cancer to right upper lung, radiation in 2019
Hypertension
Hyperlipidemia
Former alcoholic and smoker, both quit
Diverticulosis, status post sigmoidectomy
AAA
A-fib
Hernia
Polyps
BPH
Urinary frequency
OA
Cataracts
Hospital course�patient is a 78-year-old male presenting to [facility] on 03/03 with worsening 10+ out of 10 pain and left-sided hip/upper leg pain. Patient had stage Ib lung adenocarcinoma and definitive SBRT in 2019. Last surveillance CT
showed AVELINA in April 2023. CT of pelvis on 03/03 showed lytic lesions in bilateral iliac bone with destruction of the posterior lateral iliac bone cortex and left proximal femur. Patient's pain managed in hospital with 5 mg oxycodone every 4 hours.
Oncology consulted and recommendations made to pursue CT CAP versus PET scan outpatient, IR biopsy of lung bone outpatient and potential palliative radiation for pain management. Patient is supposed to see radiation oncology on Sunday for further
discussion. Patient pending results for SPEP/LISA, FLC. Patient to be discharged on short prescription of narcotics for pain management and told to follow-up within 2 to 3 days with primary care for further medication support. Continue all other
home medications.
Data reviewed
� 03/03- Lumbar spine CT�Of note, on concurrent CT of the pelvis, there are multiple lytic lesions which are highly suspicious for bony neoplastic disease.On CT of the lumbar spine, there is no evidence of a large lytic lesion. There is slight
heterogeneity of marrow signal, and small metastatic lesions within the lumbar spine or possible.Diffuse degenerative changes of the lumbar spine. See above narrative for detailed findings at each level.Left adrenal gland mass which is stable from
CT scan of August 28, 2018, compatible with a left adrenal adenoma.
�elvis CT�As described, multiple lytic lesions, which are highly suspicious for neoplastic disease. Bony metastatic disease would be the leading consideration. Multiple myeloma is a differential consideration. Lymphoma could also be
considered.No CT evidence for pathologic fracture.
- 03/03�hip x-ray�Well-defined lucency involving the lateral aspect of the left proximal femur at the base of the greater trochanter. This appears to be new since previous examinations. In this location, this would most likely represent a
intraosseous cyst or ganglion. However, neoplasia cannot be excluded. For further evaluation, consideration for MRI of the left hip without and with contrast, if there are no contraindications
�03/03�lumbar spine x-ray�No radiographic evidence for fracture. Levoconvex scoliosis. Changes of degenerative disc disease in the lumbar spine.
Discharge Plan
-
Patient Disposition: Home (Routine Discharge)
Discharge Diagnosis/Procedures: Left-sided Hip pain
Condition: Fair
Diet: No restrictions and As tolerated
Activity: No restrictions and As tolerated
Driving Restrictions: As prior to admission
Bathing Restrictions: None
Referrals:
Jimenez Fitzpatrick MD [Family Provider] - in one to two days
Additional Discharge Medication Instructions: Please follow up with PCP within 2-3 days for additional pain medication management
Prescriptions:
New
polyethylene glycol 3350 [HealthyLax] 17 gram Powder In Packet
17 g PO DAILYPRN PRN (Reason: constipation) Qty: 30 0RF
sennosides-docusate sodium 8.6-50 mg Tablet
1 tab PO BIDPRN PRN (Reason: constipation) Qty: 14 0RF
oxycodone 5 mg tablet
10 mg PO Q6HPRN PRN (Reason: Pain) Qty: 24 0RF
Rx Instructions:
5mg 1 tab [id number] 4-7
10mg 2 tabs [id number] 8-10
Continued
ramipril 5 MG capsule
5 mg PO QPM
rosuvastatin 20 MG tablet
20 mg PO QPM
travoprost 0.004 % drops
1 drp BOTH EYES HS
acetaminophen [Tylenol Extra Strength] 500 mg Tablet
500 mg PO Q6HPRN PRN (Reason: mild pain)
ecwqhqqoicyd-kzfsedqx-fpkvac Tablet
2 tab PO DAILY
Simbrinza 1-0.2 % Drops,Suspension
1 drp RIGHT EYE BID
Anoro Ellipta 62.5-25 mcg/actuation blister with device
1 inh INHALATION R QPM
Eliquis 5 mg Tablet
5 mg PO BID Qty: 60 5RF
omeprazole 40 mg capsule,delayed release(DR/EC)
40 mg PO DAILY
Fiber Gummies
4 tab PO DAILY
metoprolol succinate 25 mg tablet extended release 24 hr
12.5 mg PO QPM
Discharge Orders:
Discharge Patient (As Directed); Ordered 03/04/24
Ordered By: Memo Chavez
Discharge Date and Time
Print Language: GREEK

Documented by User: Memo Chavez MD 03/04/24 14:58
Discharge Summary
Discharge Data
Date of Admission: 03/03/24
Date of Discharge: 03/04/24
Discharge Plan
-
Patient Disposition: Home (Routine Discharge)
Discharge Diagnosis/Procedures: Left-sided Hip pain
Condition: Fair
Diet: No restrictions and As tolerated
Activity: No restrictions and As tolerated
Driving Restrictions: As prior to admission
Bathing Restrictions: None
Referrals:
Jimenez Fitzpatrick MD [Family Provider] - in one to two days
Additional Discharge Medication Instructions: Please follow up with PCP within 2-3 days for additional pain medication management
Prescriptions:
New
polyethylene glycol 3350 [HealthyLax] 17 gram Powder In Packet
17 g PO DAILYPRN PRN (Reason: constipation) Qty: 30 0RF
sennosides-docusate sodium 8.6-50 mg Tablet
1 tab PO BIDPRN PRN (Reason: constipation) Qty: 14 0RF
oxycodone 5 mg tablet
10 mg PO Q6HPRN PRN (Reason: Pain) Qty: 24 0RF
Rx Instructions:
5mg 1 tab [id number] 4-7
10mg 2 tabs [id number] 8-10
Continued
ramipril 5 MG capsule
5 mg PO QPM
rosuvastatin 20 MG tablet
20 mg PO QPM
travoprost 0.004 % drops
1 drp BOTH EYES HS
acetaminophen [Tylenol Extra Strength] 500 mg Tablet
500 mg PO Q6HPRN PRN (Reason: mild pain)
piomujveadrj-shoylhbl-sbdoui Tablet
2 tab PO DAILY
Simbrinza 1-0.2 % Drops,Suspension
1 drp RIGHT EYE BID
Anoro Ellipta 62.5-25 mcg/actuation blister with device
1 inh INHALATION R QPM
Eliquis 5 mg Tablet
5 mg PO BID Qty: 60 5RF
omeprazole 40 mg capsule,delayed release(DR/EC)
40 mg PO DAILY
Fiber Gummies
4 tab PO DAILY
metoprolol succinate 25 mg tablet extended release 24 hr
12.5 mg PO QPM
Discharge Orders:
Discharge Patient (As Directed); Ordered 03/04/24
Ordered By: Memo Chavez
Discharge Date and Time
Print Language: GREEK
[2024-03-04 14:20] LABS: Urine Protein < 5 mg/dl (0-12)
[2024-03-04 15:18] VITALS: BP 138/63; PULSE 67
[2024-03-04 15:19] VITALS: BP 138/63; PULSE 67
[2024-03-04 15:26] VITALS: BP 138/63
--- NOTE | 2024-03-04 16:23 | CM ---
Addendum entered by Kym Julain 03/04/24 16:40:
Adolfo has declined home care services, as he did not like that there would not be a regular schedule of days/times.
Original Note:
CM met with Adolfo at bedside to complete IA. Adolfo lives with his in a 1 story home with 4 entry steps. He has been (I) amb and adls, however more recently has been having difficulty bearing weight on his left leg.
Therapists recommended home health services; [facility] chosen and [facility] asked to speak with pt/ regarding services.
Plan: Discharge to home with [facility].
PCP: Jimenez Fitzpatrick
Pharmacy: [facility]
--- NOTE | 2024-03-04 16:43 | VNURNOTE ---
Home Health Liaison met with patient , son, and at bedside to discuss [facility] nurse/therapy, visits, schedule and homebound status. Patient informed this author he 'has a tight schedule' and prefers 48 hour head notice to schedule visits. He
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 Explained purpose of [facility] and cannot guarantee a set schedule or 48hr advance notice. Nurses call the night before or morning of to schedule. Patient and family declining at this time. [facility] brochure provided with contact
information if pt changes his mind.
== END 2024-03-04 17:04 | disposition home health service (06) | DRG 543 ==
LOC: 4 EAST ACU 23:46
PROVIDERS: Clinical Nurse Specialist Family Health; Physician Assistant; Student in an Organized Health Care Education/Training Program; ADMITTING PHYSICIAN Hospitalist; ATTENDING PHYSICIAN Hospitalist; EMERGENCY PHYSICIAN Emergency Medicine; FAMILY PHYSICIAN Family Medicine; OTHER PHYSICIAN Internal Medicine Hematology & Oncology
DX: C79.51 Secondary malignant neoplasm of bone (principal); I50.22 Chronic systolic (congestive) heart failure; I71.21 Aneurysm of the ascending aorta, without rupture; I11.0 Hypertensive heart disease with heart failure; F10.21 Alcohol dependence, in remission; J44.9 Chronic obstructive pulmonary disease, unspecified; E04.1 Nontoxic single thyroid nodule; D35.02 Benign neoplasm of left adrenal gland; E78.5 Hyperlipidemia, unspecified; D72.829 Elevated white blood cell count, unspecified; T38.0X5A Adverse effect of glucocorticoids and synthetic analogues, initial encounter; I48.91 Unspecified atrial fibrillation; K59.09 Other constipation; M47.816 Spondylosis without myelopathy or radiculopathy, lumbar region; M51.36 Other intervertebral disc degeneration, lumbar region; N40.1 Benign prostatic hyperplasia with lower urinary tract symptoms; R35.0 Frequency of micturition; M25.552 Pain in left hip; M25.511 Pain in right shoulder; G89.29 Other chronic pain; M54.2 Cervicalgia; G47.33 Obstructive sleep apnea (adult) (pediatric); E78.00 Pure hypercholesterolemia, unspecified; F17.200 Nicotine dependence, unspecified, uncomplicated; Z79.01 Long term (current) use of anticoagulants; Z79.899 Other long term (current) drug therapy; Z90.49 Acquired absence of other specified parts of digestive tract; Z85.118 Personal history of other malignant neoplasm of bronchus and lung; Z92.3 Personal history of irradiation; Z87.19 Personal history of other diseases of the digestive system
CPT/HCPCS: 51798; 72110; 72131; 72192; 73502; 80053; 81003; 83521; 84155; 84156; 84165; 85025; 86335; 96374; 97162; 97167; 99285; G0103

== ENCOUNTER → 2024-03-10 08:11 | Outpatient (REF) | payer MEDICARE, OTHER, SELFPAY | LOC: RAD 08:11 | PROVIDERS: ATTENDING PHYSICIAN Internal Medicine Hematology & Oncology; FAMILY PHYSICIAN Family Medicine | DX: C34.90 Malignant neoplasm of unspecified part of unspecified bronchus or lung (principal) | CPT/HCPCS: 71260; 74177; Q9967 ==

== ENCOUNTER → 2024-03-17 06:58 | Outpatient (REF) | payer MEDICARE, OTHER, SELFPAY ==
[2024-03-17 07:30] VITALS: BP 136/60; BP_SYST 68
[2024-03-17 08:03] LABS: INR 1.21; PT 15.1 Sec (11.4-14.6)
[2024-03-17 09:45] VITALS: BP 127/54
== END ==
LOC: RADI 06:58
PROVIDERS: ATTENDING PHYSICIAN Internal Medicine Hematology & Oncology; FAMILY PHYSICIAN Family Medicine
DX: C79.51 Secondary malignant neoplasm of bone (principal); C34.90 Malignant neoplasm of unspecified part of unspecified bronchus or lung; D68.8 Other specified coagulation defects
CPT/HCPCS: 88305; 88311; 20225; 36415; 77012; 81459; 85610; 88333; 88334; 88341; 88342; 99152; 99153

== ENCOUNTER → 2024-03-19 08:42 | Outpatient (REF) | payer MEDICARE, OTHER, SELFPAY | LOC: DHSLP 08:42 | PROVIDERS: ATTENDING PHYSICIAN Internal Medicine Critical Care Medicine; FAMILY PHYSICIAN Family Medicine | DX: G47.33 Obstructive sleep apnea (adult) (pediatric) (principal); G47.31 Primary central sleep apnea; G47.61 Periodic limb movement disorder | CPT/HCPCS: 95811 ==

== ENCOUNTER → 2024-04-04 14:56 | Outpatient (REF) | payer MEDICARE, OTHER, SELFPAY | LOC: RAD 14:56 | PROVIDERS: ATTENDING PHYSICIAN Internal Medicine Hematology & Oncology; FAMILY PHYSICIAN Family Medicine | DX: C34.90 Malignant neoplasm of unspecified part of unspecified bronchus or lung (principal); C34.91 Malignant neoplasm of unspecified part of right bronchus or lung; C79.51 Secondary malignant neoplasm of bone | CPT/HCPCS: 73552 ==

== ENCOUNTER → 2024-04-07 18:27 | Outpatient (REF) | payer MEDICARE, OTHER, SELFPAY | LOC: MRI 3T 18:27 | PROVIDERS: ATTENDING PHYSICIAN Internal Medicine Hematology & Oncology; FAMILY PHYSICIAN Family Medicine | DX: C34.90 Malignant neoplasm of unspecified part of unspecified bronchus or lung (principal); C34.91 Malignant neoplasm of unspecified part of right bronchus or lung; C79.51 Secondary malignant neoplasm of bone | CPT/HCPCS: 70553; A9575 ==

== ENCOUNTER → 2024-04-14 14:09 | Outpatient (REF) | payer MEDICARE, OTHER, SELFPAY ==
[2024-04-14 14:49] LABS: % Basophils 0.1 % (0-2); % Eosinophils 0.1 % (0-6); % Immature Granulocytes 0.7 % (0-0.5); % Lymphocytes 4.9 % (20.5-51.1); % Monocytes 7.4 % (1.7-9.3); % Neutrophils 86.8 % (42.2-75.2); Absolute Immature Granulocytes 0.1 10^3/uL (0-0.05); Absolute Lymphocytes 0.8 10^3/uL (1.2-3.4); Absolute Monocytes 1.2 10^3/uL (0.1-0.6); Absolute Neutrophils 14.3 10^3/uL (1.4-6.5); Hematocrit 38.8 % (39.0-52.0); Hemoglobin 13.1 g/dL (13.0-18.0); Mean Corp Hgb Conc. 33.8 g/dL (33.0-37.0); Mean Corpuscular Hgb 30.8 pg (27.0-31.0); Mean Corpuscular Volume 91.1 fL (80.0-94.0); Mean Platelet Volume 10.2 fL (7.4-10.4); Nucleated Red Blood Cells % 0 % (-); Platelet Count 352 10^3/uL (130-400); Red Blood Cell Count 4.26 10^6/uL (4.70-6.10); Red Cell Dist. Width 15.7 % (11.5-14.5); White Blood Cell Count 16.5 10^3/uL (4.8-10.8)
[2024-04-14 15:12] LABS: ALT (SGPT) 49 U/L (0-50); AST (SGOT) 32 U/L (17-59); Albumin 3.9 g/dl (3.5-5.0); Alkaline Phosphatase 63 U/L (38-126); Blood Urea Nitrogen 37 mg/dl (9-20); Calcium 9.5 mg/dl (8.4-10.2); Carbon Dioxide 25 mmol/L (22-30); Chloride 98 mmol/L (98-107); Glucose 119 mg/dl (70-99); Potassium 4.8 mmol/L (3.5-5.1); Sodium 137 mmol/L (135-145); Total Bilirubin 0.6 mg/dl (0.2-1.3); Total Protein 6.3 g/dl (6.3-8.2); eGFR > 60.00
[2024-04-14 15:24] LABS: Free T4 1.23 ng/dl (0.78-2.19)
[2024-04-16 22:49] LABS: Total T3 (Sendout) 53 ng/dL (80-200)
== END ==
LOC: REG 14:09
PROVIDERS: ATTENDING PHYSICIAN Internal Medicine Hematology & Oncology; FAMILY PHYSICIAN Family Medicine
DX: C34.90 Malignant neoplasm of unspecified part of unspecified bronchus or lung (principal); C34.91 Malignant neoplasm of unspecified part of right bronchus or lung; C79.51 Secondary malignant neoplasm of bone; I5A Non-ischemic myocardial injury (non-traumatic); I48.91 Unspecified atrial fibrillation
CPT/HCPCS: 36415; 80053; 84439; 84443; 84480; 85025

== ENCOUNTER 2024-05-02 22:14 | Observation (INO) | payer MEDICARE, OTHER, SELFPAY ==
[2024-05-02] VITALS (7 sets, daily range): BP systolic 112–130; BP diastolic 52–76; BMI 22.1; BMI 20.4
--- NOTE | 2024-05-02 15:14 | ED.GENMED ---
ED Provider Triage
<Jaspreet Van PA-C - Last Filed: 05/02/24 15:18>
-
Patient seen by provider in Triage?: Seen in Triage
Attestation: A medical screening examination has been initiated by a qualified medical provider. Based on the assessment performed at this time, it has been determined that an emergent medical condition may exist and the patient has been informed
that further medical evaluation and possible additional diagnostic testing may be needed.
HPI: sent to ED by Dr. Sandoval from [facility] for worsening pain to left hip/pelvis. known mets from lung cancer. not responding to home meds. sent for pain control
GENERAL: Alert , in no apparent distress
EYE: No visual abnormalities.
NECK: Trachea midline
ENT: No visible abnormalities.
LUNGS: No acute respiratory distress
NEUROLOGICAL: Alert and oriented
SKIN: Skin intact. No visible changes.
MUSCULOSKELETAL: Moving extremities normally
PSYCH: Normal and appropriate interaction.
This is a medical evaluation conducted in person to initiate diagnostic evaluation and provide initial therapeutics. Please see further documentation by the treating clinician.
History of Present Illness
<Jaspreet Van PA-C - Last Filed: 05/02/24 15:18>
General
Chief Complaint: Extremity Pain (non-traumatic)
Time Seen by Provider: 05/02/24 18:53
<Ronnie Burt DO - Last Filed: 05/02/24 21:20>
History of Present Illness
History of Present Illness:
TIME OF INITIAL ENCOUNTER: 6:56 PM
HPI: The patient was sent to ED by Dr. Sandoval from [facility] for worsening pain to left hip/pelvis. He has known metastatic lung cancer and is not responding to home meds for pain control. He has tried steroids for pain control. He did take 15 mg
of oxycodone at about 6 PM this evening and now feels somewhat improved however had tremendous gait dysfunction earlier. Although he was found to be hypoxic, he denies any shortness of breath
EXAM:
GENERAL: Appears somewhat chronically ill and weak and debilitated
HEENT: Moist oral mucosa
CARDIOVASCULAR: No murmurs, normal heart rate, regular rhythm, No chest wall tenderness
PULMONARY: No respiratory distress, breath sounds are slightly decreased on the right
ABDOMEN: Soft with no peritoneal signs, no tenderness
NEUROLOGIC: Fair strength all extremities, no coordination deficits
PSYCHIATRIC: Appropriate mental status, normal insight and judgement
EXTREMITIES: Nontender, 2+ bilateral lower extremity edema, moves all extremities equally
SKIN: No rash, no lesions
NUMBER AND COMPLEXITY OF PROBLEMS ADDRESSED AT THE ENCOUNTER
� Chronic conditions affecting care: Metastatic lung cancer, COPD, A-fib, high blood pressure
� Acute Exacerbation and/or Progression of Chronic Illness: This is a subacute and worsening problem
� Differential Diagnosis includes: Metastatic lung disease to the bone, PE, pneumonia, COPD exacerbation
AMOUNT AND/OR COMPLEXITY OF DATA TO BE REVIEWED AND ANALYZED
� I performed an independent evaluation of and my interpretation is:
EKG:
CT: CTA shows no PE but does show progression of metastatic disease
X-rays: Plain film imaging has shown an increase in size of the lytic lesion at the left greater trochanter now measuring nearly 3 cm
Laboratory Studies: White count normal, hemoglobin 12.9
Other:
� Review of other/old records: I reviewed records, the patient was admitted to the hospital 2 months ago with lung cancer
� Clinical information was obtained by an independent historian: I spoke to the and son at bedside
� Prescriptions/Medications Considered but not given:
� Further testing considered but not performed:
RISK OF COMPLICATIONS AND/OR MORBIDITY OR MORTALITY OF PATIENT MANAGEMENT
� Social determinants of health affecting care: Lives at home
� Discussion with other providers: Dr. Osborne for admission at 9:20 PM
� Escalation of care including admission/observation vs risk of discharge considered: Sent here for further pain control failing outpatient management by his oncologist. CTA shows progression of metastatic disease in both lung
and bone
ANY OTHER UPDATES:
7:15 PM: I have ordered IV steroids as patient is hypoxic to 85% with good waveform on room air. However the patient does have history of COPD and denies shortness of breath. He is not wheezing. Will give IV narcotic analgesia if needed
Past History
<Jaspreet Van PA-C - Last Filed: 05/02/24 15:18>
Past History
ED Past Medical History: HTN and Other (Diverticulitis)
ED Past Surgical History: Appendectomy, Orthopedic (Wrist surgery) and Tonsilectomy
Social History
Tobacco: Smoker
Alcohol: Occasional
Drug: None
Personal:
Living: with family
Employment: Employed
Phy Exam
<Ronnie Burt DO - Last Filed: 05/02/24 21:20>
Physical Exam
Physical Exam:
See HPI
Course
<Jaspreet Van PA-C - Last Filed: 05/02/24 15:18>
Orders/Labs/Results
Orders:
Orders
05/02/24 15:16
CR Hip - LT w/wo Pel 2-3 Vw* Urgent
Comment:
Reason For Exam: pain, known mets, ? pathologic fx
Include a pelvis x-ray?: Yes
05/02/24 17:31
CT Pelvis With Iv Contrast Urgent
Reason For Exam: left hip mets, worsening pain
05/02/24 18:47
Basic Metabolic Panel Urgent
Complete Blood Count/With Diff Urgent
05/02/24 19:10
CT Chest Pe Study Urgent
Comment:
Reason For Exam: hypoxia lung CA sedentary leg swelling
05/02/24 19:12
Dexamethasone Sod Phosphate [Decadron] 10 mg IV NOW STA
05/02/24 19:27
Pro-BNP [NT-proBNP] Urgent
05/02/24 20:31
HYDROmorphone [Dilaudid] 1 mg IV NOW STA
Ondansetron Injectable [Zofran] 4 mg IV NOW STA
Abnormal Lab Results
05/02/24
18:47
RBC 4.26 L 10^6/uL
(4.70-6.10)
Hgb 12.9 L g/dL
(13.0-18.0)
Hct 38.3 L %
(39.0-52.0)
RDW 16.0 H %
(11.5-14.5)
Abs Immat Gran (auto) 0.1 H 10^3/uL
(0-0.05)
Absolute Neuts (auto) 7.2 H 10^3/uL
(1.4-6.5)
Absolute Lymphs (auto) 0.8 L 10^3/uL
(1.2-3.4)
Absolute Monos (auto) 1.0 H 10^3/uL
(0.1-0.6)
Immature Gran % 1.1 H %
(0-0.5)
Neutrophils % 76.4 H %
(42.2-75.2)
Lymphocytes % 8.4 L %
(20.5-51.1)
Monocytes % 10.3 H %
(1.7-9.3)
Sodium 134 L mmol/L
(135-145)
Chloride 94 L mmol/L
(98-107)
BUN 28 H mg/dl
(9-20)
Glucose 105 H mg/dl
(70-99)
05/02/24 18:47
05/02/24 18:47
Vital Signs
Initial and Last Documented VS:
Initial Vital Signs
Temp Pulse Resp BP Pulse Ox
98.5 F 79 18 130/67 96
05/02/24 15:12 05/02/24 15:12 05/02/24 15:12 05/02/24 15:12 05/02/24 15:12
Last Documented Vital Signs
Temp Pulse Resp BP Pulse Ox
99.2 F 103 20 130/59 94
05/02/24 19:21 05/02/24 21:05 05/02/24 21:05 05/02/24 21:05 05/02/24 21:08
<Ronnie Burt, DO - Last Filed: 05/02/24 21:20>
Orders/Labs/Results
Orders:
Orders
05/02/24 15:16
CR Hip - LT w/wo Pel 2-3 Vw* Urgent
Comment:
Reason For Exam: pain, known mets, ? pathologic fx
Include a pelvis x-ray?: Yes
05/02/24 17:31
CT Pelvis With Iv Contrast Urgent
Reason For Exam: left hip mets, worsening pain
05/02/24 18:47
Basic Metabolic Panel Urgent
Complete Blood Count/With Diff Urgent
05/02/24 19:10
CT Chest Pe Study Urgent
Comment:
Reason For Exam: hypoxia lung CA sedentary leg swelling
05/02/24 19:12
Dexamethasone Sod Phosphate [Decadron] 10 mg IV NOW STA
05/02/24 19:27
Pro-BNP [NT-proBNP] Urgent
05/02/24 20:31
HYDROmorphone [Dilaudid] 1 mg IV NOW STA
Ondansetron Injectable [Zofran] 4 mg IV NOW STA
Abnormal Lab Results
05/02/24
18:47
RBC 4.26 L 10^6/uL
(4.70-6.10)
Hgb 12.9 L g/dL
(13.0-18.0)
Hct 38.3 L %
(39.0-52.0)
RDW 16.0 H %
(11.5-14.5)
Abs Immat Gran (auto) 0.1 H 10^3/uL
(0-0.05)
Absolute Neuts (auto) 7.2 H 10^3/uL
(1.4-6.5)
Absolute Lymphs (auto) 0.8 L 10^3/uL
(1.2-3.4)
Absolute Monos (auto) 1.0 H 10^3/uL
(0.1-0.6)
Immature Gran % 1.1 H %
(0-0.5)
Neutrophils % 76.4 H %
(42.2-75.2)
Lymphocytes % 8.4 L %
(20.5-51.1)
Monocytes % 10.3 H %
(1.7-9.3)
Sodium 134 L mmol/L
(135-145)
Chloride 94 L mmol/L
(98-107)
BUN 28 H mg/dl
(9-20)
Glucose 105 H mg/dl
(70-99)
05/02/24 18:47
05/02/24 18:47
Vital Signs
Initial and Last Documented VS:
Initial Vital Signs
Temp Pulse Resp BP Pulse Ox
98.5 F 79 18 130/67 96
05/02/24 15:12 05/02/24 15:12 05/02/24 15:12 05/02/24 15:12 05/02/24 15:12
Last Documented Vital Signs
Temp Pulse Resp BP Pulse Ox
99.2 F 103 20 130/59 94
05/02/24 19:21 05/02/24 21:05 05/02/24 21:05 05/02/24 21:05 05/02/24 21:08
Rosmerylt;DO Reilly Louis Last Filed: 05/02/24 21:20>
*Critical Care Note
Total Time (30-74mins, 75-104mins- exclusive of procedures): Not Applicable
ED Attending Note
<Jaspreet Van PA-C - Last Filed: 05/02/24 15:18>
-
Portions of this chart may have been created with voice recognition software.� Occasional wrong word or��sound alike� substitutions may have occurred due to the inherent limitations of voice recognition software.
Discharge Plan
Departure
Prescriptions:
No Action
ramipril 5 MG capsule
5 mg PO QPM
rosuvastatin 20 MG tablet
20 mg PO QPM
travoprost 0.004 % drops
1 drp BOTH EYES HS
acetaminophen [Tylenol Extra Strength] 500 mg Tablet
500 mg PO Q6HPRN PRN (Reason: mild pain)
coflsjuffzhj-ffjcmzlz-kouhrd Tablet
2 tab PO DAILY
Simbrinza 1-0.2 % Drops,Suspension
1 drp RIGHT EYE BID
Anoro Ellipta 62.5-25 mcg/actuation blister with device
1 inh INHALATION R QPM
Eliquis 5 mg Tablet
5 mg PO BID Qty: 60 5RF
omeprazole 40 mg capsule,delayed release(DR/EC)
40 mg PO DAILY
Fiber Gummies
4 tab PO DAILY
metoprolol succinate 25 mg tablet extended release 24 hr
12.5 mg PO QPM
polyethylene glycol 3350 [HealthyLax] 17 gram Powder In Packet
17 g PO DAILYPRN PRN (Reason: constipation) Qty: 30 0RF
sennosides-docusate sodium 8.6-50 mg Tablet
1 tab PO BIDPRN PRN (Reason: constipation) Qty: 14 0RF
oxycodone 5 mg tablet
10 mg PO Q6HPRN PRN (Reason: Pain) Qty: 24 0RF
Rx Instructions:
5mg 1 tab [id number] 4-7
10mg 2 tabs [id number] 8-10
Referrals:
Jimenez Fitzpatrick MD [Family Provider] -
Interventions
Interventions:
*Risk Screen - Suicide Last Done: 05/02/24 15:12
*General Assessment Last Done: 05/02/24 15:12
*Neglect/Abuse Screening Last Done: 05/02/24 15:12
*ED COVID-19 Vaccine History Last Done: 05/02/24 15:12
ED-Skin Assessment Last Done: 05/02/24 20:54
ED-Peripheral Vascular Assessment Last Done: 05/02/24 20:54
ED-Musculoskeletal Assessment Last Done: 05/02/24 20:54
Discharge Date and Time
Print Language: KYRGYZ
[2024-05-02 19:01] LABS: % Basophils 0.5 % (0-2); % Eosinophils 3.3 % (0-6); % Immature Granulocytes 1.1 % (0-0.5); % Lymphocytes 8.4 % (20.5-51.1); % Monocytes 10.3 % (1.7-9.3); % Neutrophils 76.4 % (42.2-75.2); Absolute Basophils 0.1 10^3/uL (0-0.2); Absolute Eosinophils 0.3 10^3/uL (0-0.7); Absolute Immature Granulocytes 0.1 10^3/uL (0-0.05); Absolute Lymphocytes 0.8 10^3/uL (1.2-3.4); Absolute Neutrophils 7.2 10^3/uL (1.4-6.5); Hematocrit 38.3 % (39.0-52.0); Hemoglobin 12.9 g/dL (13.0-18.0); Mean Corp Hgb Conc. 33.7 g/dL (33.0-37.0); Mean Corpuscular Hgb 30.3 pg (27.0-31.0); Mean Corpuscular Volume 89.9 fL (80.0-94.0); Mean Platelet Volume 9.7 fL (7.4-10.4); Nucleated Red Blood Cells % 0 % (-); Platelet Count 313 10^3/uL (130-400); Red Blood Cell Count 4.26 10^6/uL (4.70-6.10); White Blood Cell Count 9.4 10^3/uL (4.8-10.8)
[2024-05-02 19:21] LABS: Blood Urea Nitrogen 28 mg/dl (9-20); Calcium 9.6 mg/dl (8.4-10.2); Carbon Dioxide 28 mmol/L (22-30); Chloride 94 mmol/L (98-107); Glucose 105 mg/dl (70-99); Potassium 4.6 mmol/L (3.5-5.1); Sodium 134 mmol/L (135-145); eGFR > 60.00
[2024-05-02 19:50] LABS: NT-proBNP 1410 pg/ml
[2024-05-02] MEDS: DECADRON 10 MG IV (20:28)
[2024-05-02] MEDS: ZOFRAN 4 MG IV (20:33)
[2024-05-02] MEDS: DILAUDID 1 MG IV (20:33)
--- NOTE | 2024-05-02 21:52 | HPS.HSE ---
Family Physician
-
Family Physician: Jimenez Fitzpatrick
Chief Complaint
-
Inadequate cancer bone pain control
History of Present Illness
HPI
78M HX Metastatic Lung CA to bone, HLD, HTN, AF on Eliquis sen to ER by Dr. Sandoval from [facility] for
- worsening pain to left hip/pelvis
- known metastatic lung cancer and is NOT responding to home meds for pain control.
- steroids for pain controlled 15 mg of oxycodone at about 6 PM this evening and now feels somewhat improved - - tremendous gait dysfunction earlier
- he was found to be hypoxic , denies any shortness of breath. NEG CTC for PE
Medical History
Past Medical History
Past Medical History: Reports Other ( HTN, HLD, known abnormal EKG, smoker, diverticulosis,diverticular abscess requiring colon resection, ascending aortic aneurysm chronic constipation, hernia, polyps, BPH, urinary frequency, OA, cataracts, chronic
neck and back pain, former alcoholic stopped 15 years ago, former heavy smoker stopped )
Past Surgical History: Reports Other (Left wrist carpectomy 2007, right inguinal hernia repair 2013, cataract extraction bilateral 2015, appendectomy, tonsillectomydiverticular abscess requiring colon resection, ascending aortic aneurysm)
Social History
Tobacco: Smoker (Prior 60-year 1.5 pack a day quit March 2019)
Alcohol: Former (Stopped 15 years ago)
Drug: None
Personal:
Living: With Family ()
Employment: Retired
Family History
Family History: Other (Mother DVT/PE, father cardiomyopathy)
Allergies / Home Medications
Allergies reflects when Allergies were last updated in [facility].
Home Medications with original date entered in [facility]
Allergy/Medication List:
Allergies
Allergy/AdvReac Type Severity Reaction Status Date / Time
adhesive Allergy SEE COMMENT Verified 03/03/24 15:02
Hayfever Allergy Sneezing, Uncoded 08/12/24 15:02
watery/itchy
eyes,
stuffy nose
Home Medications
ramipril 5 mg capsule 5 mg PO QPM Blood Pressure 08/15/18
rosuvastatin 20 mg tablet 20 mg PO QPM High Cholesterol 08/15/18
acetaminophen 500 mg tablet (Tylenol Extra Strength) 500 mg PO Q6HPRN PRN mild pain 04/09/23
brinzolamide 1 %-brimonidine 0.2 % eye drops,suspension (Simbrinza) 1 drp RIGHT EYE BID Eye Condition 04/09/23
wdfonodbffuc-dfwxryjg-rbwcpn tablet 2 tab PO DAILY Supplement 04/09/23
travoprost 0.004 % eye drops 1 drp BOTH EYES HS Eye Condition 04/09/23
umeclidinium 62.5 mcg-vilanterol 25 mcg/actuation powdr for inhalation (Anoro Ellipta) 1 inh inhalation R QPM Lung/Breathing Issues 04/09/23
apixaban 5 mg tablet (Eliquis) 5 mg PO BID #60 tabs 04/10/23
Fiber Gummies 4 tab PO DAILY 03/03/24
metoprolol succinate 25 mg tablet,extended release 24 hr 12.5 mg PO QPM 03/03/24
omeprazole 40 mg capsule,delayed release 40 mg PO DAILY 03/03/24
Review of Systems
-
History Source: Patient and Family ( and son at bedside)
A 12 point ROS was completed and negative except as noted: Yes
Constitutional: Denies Fever, Weight Loss or Chills
EENT: Denies Sore Throat or Runny Nose
Respiratory: Denies Cough or Trouble Breathing
Cardiac: Denies Chest Pain, Diaphoresis, Palpitations or Syncope
Abdomen/GI: Denies Abdominal Pain, Nausea, Vomiting, Diarrhea, Constipated, Bloody Stools or Black Stools
: Denies Dysuria, Frequency, Flank Pain, Incontinence, Difficulty Voiding or Urgency
Musculoskeletal: Reports Joint Pain (Left hip to left thigh, left knee left buttocks); Denies Edema
Skin: Denies Itching or Rash
Neurological: Denies Dizzy, Headache or Weakness
Endocrine: Reports No Symptoms
Hematologic/Lymphatic: Reports No Symptoms
Psych: Reports Calm
Physical Exam
Vital Signs
Vital Signs
Temp Pulse Resp BP Pulse Ox
99.2 F 103 20 130/59 94
05/02/24 19:21 05/02/24 21:05 05/02/24 21:05 05/02/24 21:05 05/02/24 21:08
Physical Exam
General: Comfortable (After Percocet) and Conversant; No Fever or Chills
HEENT: NormoCephalic, Anicteric, Moist mucous membranes, PERRLA, [place] Conjunctivae and No Ptosis
Respiratory: Clear; No Wheezes, Rales or Rhonchi
Cardiac: S1/S2 and Regular Rhythm; No Murmur, Rub, Gallop or Peripheral Edema
GI: Soft, Non Tender, Non Distended and Normal Bowel Sounds
Rectal: Deferred by Provider
Genito-urinary: Deferred by me
Musculoskeletal: No Clubbing, No Cyanosis, No Edema and Other (Patient received Dilaudid in ER )
Skin: Warm and Dry; No Rash or Jaundice
Neuro: AO x 3, No Motor Deficits, Nonfocal/grossly intact, Cranial Nerves Intact and No Sensory Deficits; No Slurred Speech, Facial Droop, Tremors or Sedated
Psych: Calm
Laboratory Results
-
05/02/24 18:47
05/02/24 18:47
Data Reviewed
-
CT Scan: Report Reviewed by me
Lab Data: Labs Reviewed by me
Old Records: Reviewed
Impression/Plan
-
Vital Signs
Temp Pulse Resp BP Pulse Ox
99.2 F 99 17 130/59 94
05/02/24 19:21 05/02/24 21:45 05/02/24 21:45 05/02/24 21:05 05/02/24 21:08
Laboratory Tests
03/04/24 04/14/24 05/02/24
05:58 14:24 18:47
Hgb 12.5 L 13.1 12.9 L
Sodium 134 L
Chloride 94 L
BUN 28 H
Creatinine 0.7
eGFR > 60.00
Mhy-V-Khpqshjnxru Pept 1410
05/02/24 CT Chest Pe Study
1. No evidence of pulmonary embolism.
2. No significant acute abnormality identified in the chest, as described above.
3. Interval progression of pulmonary and osseous metastases.
05/02/24 CR Hip - LT w/wo Pel 2-3 Vw
1. Mild degenerative changes of the left hip without evidence for acute fracture or dislocation. Interval increase in size of lytic lesion involving the left greater trochanter measuring up to 2.9 cm (previously 1.6 cm), suspicious for progression
of metastatic disease.
2. Mild degenerative changes of the pubis symphysis, right hip, bilateral sacroiliac joints and partially visualized lower lumbar spine. Vascular calcifications present.
05/02/24 CT Pelvis With Iv Contrast
1. Interval increase in size of scattered lytic osseous metastases involving the pelvic bones. For example, left iliac bone metastasis measures up to 4.5 cm (previously 3.7 cm). Also interval increase in size of right iliac and left femoral osseous
metastases.
2. No acute fracture or dislocation.
3. Limited evaluation of pelvic viscera is grossly unremarkable.
4. Evaluation of additional soft tissue structures such as ligaments and tendons is limited by CT. Grossly, no abnormalities noted.
ASSESSMENT & PLAN
Pending Rx reconciliation
Inadequate pain control of increasing metastatic bone cancer burden
Interval increase in size of scattered lytic osseous metastases involving the pelvic bone, b/l illiac bone and femur
No pathological Fxs
HX Chronic neck and right shoulder pain
- cont Decadron 4mg Q12h then transition to PO upon DC
- IV Dilaudid PRN for acute pain control
- Tylenol 1000 mg tid
- escalade gabapentin 300mg to tid in place of BID- hold for sedation
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
- BW regime
- Onco consult
HX Non small call Lung CA @ right upper lung: S/P XRT 2018
Former smoker 60-year 1 and half pack a day quit March 2019
- Follows with [facility]
- cont. Anoro Ellipta
A-fib/flutter Dx March 2023
HX AVELINO cardioversion 04/10/2023
- cont. Eliquis and metoprolol succinate
- Follows with [facility]
Benign Hypertension
- cont Ramipril 5 and metoprolol succinate
HD
- cont Crestor 20 mg daily
HX BPH
- no reported Meds
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
Other PMH:
diverticulosis with abscess diverticula and colon resection required
hernia
polyps
OA
cataracts
DVT Px: on Eliquis
Code: DNR
Obs MS
[2024-05-03] MEDS: XALATAN OPHTHALMIC SOLUTION BOTH EYES (00:18)
[2024-05-03] MEDS: TYLENOL PO (00:25)
[2024-05-03] MEDS: REQUIP 0.25 MG PO ×2 (00:31→22:07)
[2024-05-03] MEDS: SENOKOT-S PO ×3 (00:31→22:07)
[2024-05-03] MEDS: NSS 1000 IV (00:31)
[2024-05-03] MEDS: NEURONTIN 300 MG PO ×4 (00:31→22:07)
[2024-05-03 00:32] LABS: Blood Urea Nitrogen 27 mg/dl (9-20); Calcium 9.4 mg/dl (8.4-10.2); Carbon Dioxide 26 mmol/L (22-30); Chloride 96 mmol/L (98-107); Estimated Creatinine Clearance 67 ml/min; Glucose 251 mg/dl (70-99); Potassium 4.8 mmol/L (3.5-5.1); Sodium 133 mmol/L (135-145); eGFR > 60.00
[2024-05-03] MEDS: ELIQUIS 5 MG PO ×3 (00:35→21:06)
--- NOTE | 2024-05-03 01:00 | PTCARENOTE ---
Late Entry: Received patient from ED accompanied by his spouse and son. Patient AAOx3. He was transferred directly to the bed from the stretcher. He has little pain when lying still; however, pain increases greatly when his left leg is moved. He is
able to turn himself slowly. VSS. Assessment completed. Patient oriented to the unit and demonstrated an understanding to ring for any transfers. Call torres in reach.
[2024-05-03 01:14] VITALS: BMI 20.4
[2024-05-03 04:26] VITALS: BMI 20.4
[2024-05-03 08:37] VITALS: BP 109/57
[2024-05-03 09:26] LABS: Hematocrit 34.4 % (39.0-52.0); Hemoglobin 11.7 g/dL (13.0-18.0); Mean Corpuscular Hgb 31.1 pg (27.0-31.0); Mean Corpuscular Volume 91.5 fL (80.0-94.0); Mean Platelet Volume 10.5 fL (7.4-10.4); Platelet Count 302 10^3/uL (130-400); Red Blood Cell Count 3.76 10^6/uL (4.70-6.10); Red Cell Dist. Width 15.8 % (11.5-14.5); White Blood Cell Count 5.7 10^3/uL (4.8-10.8)
--- NOTE | 2024-05-03 10:00 | CM ---
CM met with pt at bedside.
HERNANDEZ reviewed and placed on chart.
Confirmed PCP is Jimenez Fitzpatrick and pharmacy is [facility]. Reports + Prescription plan.
Prior to admission pt uses a RW for ambulation independently and is ind with ADL's. 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
Lives with spouse and adult son in a ranc[place] with 2 + 3 [employer] through side door. (Preferred entrance)
Has no HC or SNF history.
Anticipate home with out pt PT vs Home VN.
CM to follow and watch for needs.
[2024-05-03] MEDS: PROTONIX 40 MG PO (10:01)
[2024-05-03] MEDS: TYLENOL 1000 MG PO ×3 (10:01→23:34)
[2024-05-03] MEDS: LIDOCAINE 4% PATCH 2 PATCH TOPICAL (10:01)
[2024-05-03] MEDS: DECADRON 4 MG IV (10:02)
[2024-05-03 10:04] LABS: Free T3 3.31 pg/ml (2.77-5.27); Free T4 1.35 ng/dl (0.78-2.19)
[2024-05-03] MEDS: ROXICODONE 10 MG PO (10:09)
[2024-05-03] MEDS: SIMBRINZA 1%-0.2% OPHTH SUSP 1 DROP RIGHT EYE ×2 (10:11→21:08)
[2024-05-03 10:17] LABS: TSH 0.65 uIU/ml (0.47-4.68)
--- NOTE | 2024-05-03 10:51 | CON.ONC ---
Impression
Impression
severe malignant pain
lung cancer, metastatic to bone
Plan
Plan
Needs long-acting opioids. Oxycontin was prescribed as outpatient, denied by insurance per patient.
Will start MS Contin 30mg q12h. Continue current prn pain meds, steroids, gabapentin
Bowel regimen
Eventual additional radiation
Recently started systemic therapy w/ Keytruda
Patient History
History of Present Illness
This is a 78yo M w/ lung cancer, metastatic to bone of the pelvis/hip, who recently underwent palliative RT and started Keytruda, who was sent to ER with worsening pain despite prn oxycodone, gabapentin, tylenol and steroids. Imaging suggests
progression of bony mets. There has been consideration for add'l radiation in the near future.
Past-Medical/Surgical History
Past�Medical�History lung�cancer BPH COPD DJD glaucoma hypercholesterolemia HTN PAF rotator�cuff�injury Surgical�History appendectomy eye�surgery colectomy rotator�cuff�repair T&A shoulder�arthroscopy
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
Patient Medication
�Medication �Instructions �Recorded �Confirmed �Last Taken �Type
ramipril 5 mg capsule 5 mg PO QPM Blood Pressure 08/15/18 05/02/24 03/16/24 History
rosuvastatin 20 mg tablet 20 mg PO QPM High Cholesterol 08/15/18 05/02/24 03/16/24 History
acetaminophen 500 mg tablet 500 mg PO Q6HPRN PRN mild pain 04/09/23 05/02/24 Unknown History
(Tylenol Extra Strength)
brinzolamide 1 %-brimonidine 0.2 % 1 drp RIGHT EYE BID Eye Condition 04/09/23 05/02/24 03/17/24 History
eye drops,suspension (Simbrinza)
ivdvxydxmkcq-rbsfyjqe-ttziag tablet 2 tab PO DAILY Supplement 04/09/23 05/02/24 03/17/24 History
travoprost 0.004 % eye drops 1 drp BOTH EYES HS Eye Condition 04/09/23 05/02/24 03/16/24 History
umeclidinium 62.5 mcg-vilanterol 1 inh inhalation R QPM 04/09/23 05/02/24 03/17/24 History
25 mcg/actuation powdr for Lung/Breathing Issues
inhalation (Anoro Ellipta)
apixaban 5 mg tablet (Eliquis) 5 mg PO BID #60 tabs 04/10/23 05/02/24 03/17/24 Rx
Fiber Gummies 4 tab PO DAILY Constipation 03/03/24 05/02/24 03/17/24 History
metoprolol succinate 25 mg 12.5 mg PO QPM Blood Pressure 03/03/24 05/02/24 03/16/24 History
tablet,extended release 24 hr
omeprazole 40 mg capsule,delayed 40 mg PO DAILY Gastrointestinal 03/03/24 05/02/24 03/17/24 History
release Issue
oxycodone 5 mg tablet 10 mg (2 x 5 mg) PO Q6HPRN PRN 03/04/24 05/02/24 03/17/24 Rx
Pain #24 tabs
polyethylene glycol 3350 17 gram 17 g PO DAILYPRN PRN constipation 03/04/24 05/02/24 03/17/24 Rx
oral powder packet (HealthyLax) #30 ea
clobetasol 0.05 % topical cream 1 applic topical DAILY PRN itching 05/02/24 05/02/24 Unknown History
gabapentin 300 mg capsule 300 mg PO BID Pain 05/02/24 05/02/24 Unknown History
levalbuterol tartrate 45 2 inh inhalation Q6H PRN sob 05/02/24 05/02/24 Unknown History
mcg/actuation aerosol inhaler
ropinirole 0.25 mg tablet 0.25 mg PO HS Neurological 05/02/24 05/02/24 Unknown History
Condition
sennosides 8.6 mg-docusate sodium 1 tab-cap PO HS Constipation 05/02/24 05/02/24 Unknown History
50 mg tablet
Active Medications
Generic Name Dose Route Start Last Admin
Trade Name Freq PRN Reason Stop Dose Admin
Acetaminophen 500 mg 05/02/24 23:53
Acetaminophen 500 Mg Tablet PO 05/30/24 23:52
Q6HPRN PRN
mild pain
Acetaminophen 1,000 mg 05/03/24 00:00 05/03/24 10:01
Acetaminophen 500 Mg Tablet PO 05/31/24 00:00 1,000 mg
Q8H RAFAEL Administration
Apixaban 5 mg 05/03/24 00:30 05/03/24 10:01
Apixaban (Eliquis) 5 Mg Tablet PO 05/31/24 00:29 5 mg
BID RAFAEL Administration
Bisacodyl 10 mg 05/02/24 23:53
Bisacodyl 10 Mg Rectal Suppository RECTAL 05/30/24 23:52
[id number] PRN
constipation
Brinzolamide/Brimonidine Tartrate 1 drop 05/03/24 08:00 05/03/24 10:11
Brinzolamide 1%/Brimonidine 0.2% (Ophth Susp) 8 Ml Bottle RIGHT EYE 05/31/24 07:59 1 drop
BID RAFAEL Administration
Dexamethasone Sodium Phosphate 4 mg 05/03/24 08:00 05/03/24 10:02
Dexamethasone 4 Mg/Ml 1 Ml Vial IV 05/31/24 07:59 4 mg
Q12H RAFAEL Administration
Gabapentin 300 mg 05/02/24 23:53 05/03/24 10:01
Gabapentin 300 Mg Capsule PO 05/30/24 23:52 300 mg
TID RAFAEL Administration
Hydromorphone HCl 1 mg 05/02/24 23:53
Hydromorphone 1 Mg/Ml Carpuject IV 05/16/24 23:52
Q4HPRN PRN
severe pain
Sodium Chloride 1,000 mls @ 60 mls/hr 05/02/24 23:53 05/03/24 00:31
Nss IV 1,000 mls
[id number] RAFAEL Administration
Latanoprost 1 drop 05/02/24 23:53 05/03/24 00:18
Latanoprost 0.005% (Ophthalmic Solution) 2.5 Ml Bottle BOTH EYES 05/30/24 23:52 Not Given
HS RAFAEL
Levalbuterol 2 puff 05/02/24 23:53
Levalbuterol 45 Mcg Inhaler INH
R Q6HPRN PRN
sob
Protocol
Lidocaine 2 patch 05/03/24 08:00 05/03/24 10:01
Lidocaine 4% Topical Patch TOPICAL 05/31/24 07:59 2 patch
DAILY RAFAEL Administration
Protocol
Metoprolol Succinate 12.5 mg 05/03/24 18:00
Metoprolol 12.5 Mg Extended Release Dose (1/2 Of 25 Mg Xl Tablet) PO 05/31/24 17:59
QPM RAFAEL
Non-Formulary Medication 0 applic 05/03/24 02:52
Clobetasol TOPICAL
DAILY PRN
itching scalp
Ondansetron HCl 4 mg 05/02/24 23:53
Ondansetron 4 Mg/2 Ml Vial IV 05/30/24 23:52
Q6HPRN PRN
nausea and vomiting
Oxycodone HCl 10 mg 05/03/24 02:00 05/03/24 10:09
Oxycodone 5 Mg Regular Release Tablet PO 05/16/24 23:52 10 mg
Q4HPRN PRN Administration
moderate Pain
Pantoprazole Sodium 40 mg 05/03/24 08:00 05/03/24 10:01
Pantoprazole 40 Mg Delayed Release Tablet PO 05/31/24 07:59 40 mg
DAILY RAFAEL Administration
Patch Removal 0 patch 05/03/24 20:00
Remove Lidocaine Patch REMOVE 05/31/24 19:59
DAILY@2000 RAFAEL
Polyethylene Glycol 17 grams 05/02/24 23:53
Polyethylene Glycol Powder 17 Grams Packet PO 05/30/24 23:52
DAILYPRN PRN
constipation
Ramipril 5 mg 05/03/24 18:00
Ramipril (Altace) 5 Mg Capsule PO 05/31/24 17:59
QPM RAFAEL
Ropinirole HCl 0.25 mg 05/02/24 23:53 05/03/24 00:31
Ropinirole 0.25 Mg Tablet PO 05/30/24 23:52 0.25 mg
HS RAFAEL Administration
Senna/Docusate Sodium 1 tablet 05/02/24 23:53 05/03/24 00:42
Docusate W/Senna (Page-Colace) Tablet PO 05/30/24 23:52 Not Given
HS RAFAEL
Senna/Docusate Sodium 1 tablet 05/02/24 23:53
Docusate W/Senna (Page-Colace) Tablet PO 05/30/24 23:52
BIDPRN PRN
constipation
Sodium Chloride 0 flush 05/02/24 22:00
Sodium Chloride 0.9% (Flush) Syringe IV 05/30/24 21:59
PER PROTOCOL RAFAEL
Tiotropium [place] 2 puff 05/03/24 20:00
Tiotropium (Spiriva Respimat) 2.5 Mcg Inhaler INH 05/31/24 19:59
R QPM RAFAEL
Review of Systems
-
All Other Systems: Not reviewed unless documented
Physical Exam
-
General: Well Developed and Well Nourished; Negative Comfortable
HEENT: Moist Mucous Membranes; Negative Jaundice
Cardiology: Normal Sinus Rhythm
Pulmonary: Clear
GI: Soft and Normal Bowel Sounds
Extremities: No C/C/E
Skin: Warm and Dry
Hematologic / Lymphatic: No Lymphadenopathy
Labs
Lab Results
WBC 5.7 10^3/uL (4.8-10.8) 05/03/24 07:13
RBC 3.76 10^6/uL (4.70-6.10) L 05/03/24 07:13
Hgb 11.7 g/dL (13.0-18.0) L 05/03/24 07:13
Hct 34.4 % (39.0-52.0) L 05/03/24 07:13
MCV 91.5 fL (80.0-94.0) 05/03/24 07:13
MCH 31.1 pg (27.0-31.0) H 05/03/24 07:13
MCHC 34.0 g/dL (33.0-37.0) 05/03/24 07:13
RDW 15.8 % (11.5-14.5) H 05/03/24 07:13
Plt Count 302 10^3/uL (130-400) 05/03/24 07:13
MPV 10.5 fL (7.4-10.4) H 05/03/24 07:13
Abs Immat Gran (auto) 0.1 10^3/uL (0-0.05) H 05/02/24 18:47
Absolute Neuts (auto) 7.2 10^3/uL (1.4-6.5) H 05/02/24 18:47
Absolute Lymphs (auto) 0.8 10^3/uL (1.2-3.4) L 05/02/24 18:47
Absolute Monos (auto) 1.0 10^3/uL (0.1-0.6) H 05/02/24 18:47
Absolute Eos (auto) 0.3 10^3/uL (0-0.7) 05/02/24 18:47
Absolute Basos (auto) 0.1 10^3/uL (0-0.2) 05/02/24 18:47
Immature Gran % 1.1 % (0-0.5) H 05/02/24 18:47
Neutrophils % 76.4 % (42.2-75.2) H 05/02/24 18:47
Lymphocytes % 8.4 % (20.5-51.1) L 05/02/24 18:47
Monocytes % 10.3 % (1.7-9.3) H 05/02/24 18:47
Eosinophils % 3.3 % (0-6) 05/02/24 18:47
Basophils % 0.5 % (0-2) 05/02/24 18:47
Creatinine 0.8 mg/dL (0.7-1.3) 05/03/24 00:11
Vital Signs
Vital Signs
Temp Pulse Resp BP Pulse Ox
98.3 F 86 20 109/57 96
05/03/24 08:37 05/03/24 08:37 05/03/24 08:37 05/03/24 08:37 05/03/24 08:37
[2024-05-03] MEDS: MS CONTIN (EXTENDED RELEASE) 30 MG PO ×2 (11:42→21:06)
--- NOTE | 2024-05-03 12:37 | W.PN.HOSP.TC ---
Addendum entered and electronically signed by Trevin Knight MD 05/03/24 12:47:
Hyponatremia
-most likely SIADH
-ctm
Original Note:
Today's Communication/Plan
-
MS Contin and assess pain control, cont PRN pain meds
DC decadron
BM regimen
Assessment / Plan
Assessment / Plan
General: Well Developed and Well Nourished; Negative Comfortable
HEENT: Moist Mucous Membranes; Negative Jaundice
Cardiology: Normal Sinus Rhythm
Pulmonary: Clear
GI: Soft and Normal Bowel Sounds
Extremities: No C/C/E
Skin: Warm and Dry
Hematologic / Lymphatic: No Lymphadenopathy
Intractable pain
HX Chronic neck and right shoulder pain
�In setting of increasing metastatic bone cancer burden
-Interval increase in size of scattered lytic osseous metastases involving the pelvic bone, b/l illiac bone and femur
-No pathological Fxs
-MS Contin 30mg BID started
-no help with steroids- will dc
-Cont PRN meds for now
- IV Dilaudid PRN for acute pain control
- Tylenol 1000 mg tid
-increase gabapentin 300mg to tid in place of BID- hold for sedation
- increase CUT ORDER HAND Percocet 10mg q4h PRN in place of q6h - hold for sedation
- BW regime
- Onco consult
-Eventual additional radiation
HX Non small call Lung CA @ right upper lung: S/P XRT 2018
Former smoker 60-year 1 and half pack a day quit March 2019
- Follows with Radiation [facility]
- cont. Anoro Ellipta
--Eventual additional radiation
Recently started systemic therapy w/ Keytruda
A-fib/flutter Dx March 2023
HX AVELINO cardioversion 04/10/2023
- cont. Eliquis and metoprolol succinate
- Follows with [facility]
Benign Hypertension
- cont Ramipril 5 and metoprolol succinate
HD
- cont Crestor 20 mg daily
HX BPH
- no reported Meds
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
Other PMH:
diverticulosis with abscess diverticula and colon resection required
hernia
polyps
OA
cataracts
DVT Px: on Eliquis
Code: DNR
Anticipated Discharge: 24 - 48 hours
Subjective/Interval History
-
Date of Service: May 03, 2024
pain not under control
Objective Data
-
Labs:
Laboratory Results
05/03/24
07:13
WBC 5.7
Hgb 11.7 L
Hct 34.4 L
Plt Count 302
Vital Signs:
Vital Signs
Temp Pulse Resp BP Pulse Ox
98.3 F 86 20 109/57 96
05/03/24 08:37 05/03/24 08:37 05/03/24 08:37 05/03/24 08:37 05/03/24 08:37
I&O
05/02/24 05/03/24 05/04/24
06:59 06:59 06:59
Intake Total 1360 / 1360
Output Total 950 / 950
Balance 410 / 410
Review of Systems
-
History Source: Patient
All other systems: Not reviewed unless documented
Physical Exam
-
General: Well Developed, No Apparent Distress, Pain and Conversant
HEENT: Normocephalic and Atraumatic
Respiratory: Clear to Auscultation
Cardiac: Regular Rhythm and S1/S2
GI: Soft, Nontender, Nondistended and Normal Bowel Sounds
Musculoskeletal: No Clubbing, No Cyanosis and No Edema
Skin: Warm and Dry
Neuro: AO x 3
Psych: Calm
Data Reviewed
-
Diagnostic Radiology: Image personally visualized and interpreted and Report Reviewed by me
CT Scan: Image personally visualized and interpreted and Report Reviewed by me
Labs: Labs Reviewed by me
[2024-05-03 16:40] VITALS: BP 115/60
[2024-05-03] MEDS: TOPROL XL 12.5 MG PO (17:37)
[2024-05-03] MEDS: ALTACE 5 MG PO (17:37)
[2024-05-03] MEDS: SPIRIVA RESPIMAT 2.5 MCG 2 PUFF INH (18:15)
[2024-05-03] MEDS: XALATAN OPHTHALMIC SOLUTION 1 DROP BOTH EYES (22:08)
[2024-05-03 23:24] VITALS: BP 105/49
[2024-05-04] MEDS: ROXICODONE 10 MG PO ×2 (04:31→22:30)
[2024-05-04 05:37] VITALS: BMI 20.5
[2024-05-04 07:09] VITALS: BP 107/53
[2024-05-04] MEDS: TYLENOL 1000 MG PO ×3 (08:08→23:00)
[2024-05-04] MEDS: NEURONTIN 300 MG PO ×3 (08:09→22:38)
[2024-05-04] MEDS: PROTONIX 40 MG PO (08:09)
[2024-05-04] MEDS: LIDOCAINE 4% PATCH 2 PATCH TOPICAL (08:09)
[2024-05-04] MEDS: ELIQUIS 5 MG PO ×2 (08:09→20:43)
[2024-05-04] MEDS: SIMBRINZA 1%-0.2% OPHTH SUSP 1 DROP RIGHT EYE ×2 (08:09→20:44)
[2024-05-04] MEDS: MS CONTIN (EXTENDED RELEASE) 30 MG PO ×2 (08:09→20:43)
[2024-05-04 09:08] LABS: Hemoglobin 10.7 g/dL (13.0-18.0); Mean Corp Hgb Conc. 33.4 g/dL (33.0-37.0); Mean Corpuscular Hgb 30.5 pg (27.0-31.0); Mean Corpuscular Volume 91.2 fL (80.0-94.0); Platelet Count 348 10^3/uL (130-400); Red Blood Cell Count 3.51 10^6/uL (4.70-6.10); Red Cell Dist. Width 16.2 % (11.5-14.5); White Blood Cell Count 9.8 10^3/uL (4.8-10.8)
[2024-05-04 09:21] LABS: Blood Urea Nitrogen 27 mg/dl (9-20); Calcium 9.1 mg/dl (8.4-10.2); Carbon Dioxide 30 mmol/L (22-30); Chloride 98 mmol/L (98-107); Estimated Creatinine Clearance 68 ml/min; Glucose 138 mg/dl (70-99); Potassium 4.6 mmol/L (3.5-5.1); Sodium 136 mmol/L (135-145); eGFR > 60.00
--- NOTE | 2024-05-04 10:37 | W.PN.ONC ---
Today's Communication / Plan
-
Continue MS Contin 30mg po q12, started 05/03/24 (OxyContin was denied by insurance)
Continue prn oxycodone. Would transition to all oral opioids (d/c IV dilaudid)
Continue lidocaine patches, gabapentin
Bowel regimen
Steroids have been stopped; weren't helping and can blunt the efficacy of immunotherapy (Recently started systemic therapy w/ Keytruda)
Eventual additional radiation
d/c planning
Impression
Impression
severe malignant pain
lung cancer, metastatic to bone
Plan
Plan
Continue MS Contin 30mg po q12, started 05/03/24 (OxyContin was denied by insurance)
Continue prn oxycodone. Would transition to all oral opioids (d/c IV dilaudid)
Continue lidocaine patches, gabapentin
Bowel regimen
Steroids have been stopped; weren't helping and can blunt the efficacy of immunotherapy (Recently started systemic therapy w/ Keytruda)
Eventual additional radiation
d/c planning
Subjective/Objective
Subjective/Objective
Pain under better control today
Vital Signs:
Vital Signs
Temp Pulse Resp BP Pulse Ox
98.1 F 65 16 107/53 97
05/04/24 07:09 05/04/24 07:09 05/04/24 07:09 05/04/24 07:09 05/04/24 07:09
Lab Results:
Laboratory Data
WBC 9.8 10^3/uL (4.8-10.8) 05/04/24 08:29
Hgb 10.7 g/dL (13.0-18.0) L 05/04/24 08:29
Plt Count 348 10^3/uL (130-400) 05/04/24 08:29
eGFR > 60.00 05/04/24 08:28
Orders
Orders
Orders From Last 24 Hours
05/03/24 11:00
Morphine Sulfate Extended Rel. [Ms Contin (Extended Release)] 30 mg PO NOW ONE
05/03/24 20:00
Morphine Sulfate Extended Rel. [Ms Contin (Extended Release)] 30 mg PO Q12
--- NOTE | 2024-05-04 12:43 | W.PN.HOSP.TC ---
Today's Communication/Plan
-
MS Contin 30mg po q12
prn oxycodone
lidocaine patches, gabapentin
Bowel regimen
Steroids stopped; weren't helping
Eventual additional radiation
F/u pcp, onc outpatient
Assessment / Plan
Assessment / Plan
General: Well Developed and Well Nourished; Negative Comfortable
HEENT: Moist Mucous Membranes; Negative Jaundice
Cardiology: Normal Sinus Rhythm
Pulmonary: Clear
GI: Soft and Normal Bowel Sounds
Extremities: No C/C/E
Skin: Warm and Dry
Hematologic / Lymphatic: No Lymphadenopathy
Intractable pain
HX Chronic neck and right shoulder pain
�In setting of increasing metastatic bone cancer burden
-Interval increase in size of scattered lytic osseous metastases involving the pelvic bone, b/l illiac bone and femur
-No pathological Fxs
-MS Contin 30mg BID started
-no help with steroids- will dc
-Cont PRN meds for now
-DC iv dilaudid
- Tylenol 1000 mg tid
-increase gabapentin 300mg to tid in place of BID- hold for sedation
- increase ICT TRAINER Percocet 10mg q4h PRN in place of q6h - hold for sedation
- BW regime
- Onco consult
-Eventual additional radiation
-lidocaine patch
HX Non small call Lung CA @ right upper lung: S/P XRT 2018
Former smoker 60-year 1 and half pack a day quit March 2019
- Follows with [facility]iation [facility]
- cont. Anoro Ellipta
--Eventual additional radiation
Recently started systemic therapy w/ Keytruda
A-fib/flutter Dx March 2023
HX AVELINO cardioversion 04/10/2023
- cont. Eliquis and metoprolol succinate
- Follows with [facility]
Benign Hypertension
- cont Ramipril 5 and metoprolol succinate
HD
- cont Crestor 20 mg daily
HX BPH
- no reported Meds
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
Other PMH:
diverticulosis with abscess diverticula and colon resection required
hernia
polyps
OA
cataracts
DVT Px: on Eliquis
Code: DNR
More than 30 minutes spent in discharge including
Final examination of the patient
Summarizing hospital stay
Instructions for continuing care to all relevant caregivers
Preparation of discharge records, prescriptions, and referral forms
Total time spent (35 in minutes):
Anticipated Discharge: Today
Subjective/Interval History
-
Date of Service: May 04, 2024
Pain much better controlled
Objective Data
-
Labs:
Laboratory Results
05/04/24 05/04/24
08:28 08:29
WBC 9.8
Hgb 10.7 L
Hct 32.0 L
Plt Count 348
Sodium 136
Potassium 4.6
Chloride 98
Carbon Dioxide 30
BUN 27 H
Creatinine 0.8
Glucose 138 H
Calcium 9.1
Vital Signs:
Vital Signs
Temp Pulse Resp BP Pulse Ox
98.1 F 65 16 107/53 97
05/04/24 07:09 05/04/24 07:09 05/04/24 07:09 05/04/24 07:09 05/04/24 07:09
I&O
05/03/24 05/04/24 05/05/24
06:59 06:59 06:59
Intake Total 1360 / 1360 1290 / 1290
Output Total 950 / 950 1650 / 1650
Balance 410 / 410 -360 / -360
Review of Systems
-
History Source: Patient
All other systems: Not reviewed unless documented
Physical Exam
-
General: Well Developed, No Apparent Distress, Pain and Conversant
HEENT: Normocephalic and Atraumatic
Respiratory: Clear to Auscultation
Cardiac: Regular Rhythm and S1/S2
GI: Soft, Nontender, Nondistended and Normal Bowel Sounds
Musculoskeletal: No Clubbing, No Cyanosis and No Edema
Skin: Warm and Dry
Neuro: AO x 3
Psych: Calm
Data Reviewed
-
Diagnostic Radiology: Image personally visualized and interpreted and Report Reviewed by me
CT Scan: Image personally visualized and interpreted and Report Reviewed by me
Labs: Labs Reviewed by me
--- NOTE | 2024-05-04 12:45 | W.DS.TRANS ---
DC Summary - Financial Quantitative Analyst
-
Discharge Instructions:
Discharge Diagnosis/Procedures severe malignant pain
lung cancer, metastatic to bone
Diet Low Cholesterol,Low Fat
Instructions:
Stand-Alone Forms:
Changes to Home Medications: Yes
Discharge Medications:
DC Medications w/original date entered in [facility]
ramipril 5 mg capsule 5 mg PO QPM Blood Pressure 08/15/18
rosuvastatin 20 mg tablet 20 mg PO QPM High Cholesterol 08/15/18
brinzolamide 1 %-brimonidine 0.2 % eye drops,suspension (Simbrinza) 1 drp RIGHT EYE BID Eye Condition 04/09/23
kshktnwwlflt-zviybngz-sdkjhy tablet 2 tab PO DAILY Supplement 04/09/23
travoprost 0.004 % eye drops 1 drp BOTH EYES HS Eye Condition 04/09/23
umeclidinium 62.5 mcg-vilanterol 25 mcg/actuation powdr for inhalation (Anoro Ellipta) 1 inh inhalation R QPM Lung/Breathing Issues 04/09/23
apixaban 5 mg tablet (Eliquis) 5 mg PO BID #60 tabs 04/10/23
Fiber Gummies 4 tab PO DAILY Constipation 03/03/24
metoprolol succinate 25 mg tablet,extended release 24 hr 12.5 mg PO QPM Blood Pressure 03/03/24
omeprazole 40 mg capsule,delayed release 40 mg PO DAILY Gastrointestinal Issue 03/03/24
clobetasol 0.05 % topical cream 1 applic topical DAILY PRN itching 05/02/24
levalbuterol tartrate 45 mcg/actuation aerosol inhaler 2 inh inhalation Q6H PRN sob 05/02/24
ropinirole 0.25 mg tablet 0.25 mg PO HS Neurological Condition 05/02/24
acetaminophen 500 mg tablet (Tylenol Extra Strength) 1,000 mg (2 x 500 mg) PO Q8H 14 days #84 tabs 05/04/24
bisacodyl 10 mg rectal suppository 10 mg ID [id number] PRN constipation #50 ea 05/04/24
gabapentin 300 mg capsule 300 mg PO TID 30 days #90 caps 05/04/24
lidocaine 4 % topical patch 2 patch topical DAILY #60 ea 05/04/24
morphine 30 mg tablet,extended release 30 mg PO Q12 10 days #20 tabs 05/04/24
oxycodone 5 mg tablet 10 mg (2 x 5 mg) PO Q4HPRN PRN Pain #36 tabs 05/04/24
polyethylene glycol 3350 17 gram oral powder packet (HealthyLax) 17 g PO DAILYPRN PRN constipation #100 ea 05/04/24
sennosides 8.6 mg-docusate sodium 50 mg tablet 1 tab PO BIDPRN PRN constipation #240 tabs 05/04/24
sennosides 8.6 mg-docusate sodium 50 mg tablet 1 tab-cap PO HS Constipation #60 tabs 05/04/24
Home Medication Changes
acetaminophen 500 mg tablet (Tylenol Extra Strength) 1,000 mg (2 x 500 mg) PO Q8H 14 days #84 tabs 05/04/24
bisacodyl 10 mg rectal suppository 10 mg ID [id number] PRN constipation #50 ea 05/04/24
gabapentin 300 mg capsule 300 mg PO TID 30 days #90 caps 05/04/24
lidocaine 4 % topical patch 2 patch topical DAILY #60 ea 05/04/24
morphine 30 mg tablet,extended release 30 mg PO Q12 10 days #20 tabs 05/04/24
oxycodone 5 mg tablet 10 mg (2 x 5 mg) PO Q4HPRN PRN Pain #36 tabs 05/04/24
polyethylene glycol 3350 17 gram oral powder packet (HealthyLax) 17 g PO DAILYPRN PRN constipation #100 ea 05/04/24
sennosides 8.6 mg-docusate sodium 50 mg tablet 1 tab PO BIDPRN PRN constipation #240 tabs 05/04/24
sennosides 8.6 mg-docusate sodium 50 mg tablet 1 tab-cap PO HS Constipation #60 tabs 05/04/24
Pending Results: No
--- NOTE | 2024-05-04 13:24 | CM ---
CM following re: d/c planning.
Pt for d/c today.
CM spoke with pt, offered to arrange [facility] services.
Pt agreed and selects [facility]. Referral sent to [facility].
Family transport home.
Goal: home with [facility].
[2024-05-04 17:02] VITALS: BP 127/48
[2024-05-04] MEDS: ALTACE 5 MG PO (17:13)
[2024-05-04] MEDS: TOPROL XL 12.5 MG PO (17:13)
[2024-05-04] MEDS: SPIRIVA RESPIMAT 2.5 MCG 2 PUFF INH (19:45)
[2024-05-04] MEDS: REQUIP 0.25 MG PO (22:38)
[2024-05-04] MEDS: XALATAN OPHTHALMIC SOLUTION 1 DROP BOTH EYES (22:38)
[2024-05-04] MEDS: SENOKOT-S 1 TABLET PO (22:38)
[2024-05-04 23:49] VITALS: BP 107/47
[2024-05-05 06:00] VITALS: BMI 20.1
[2024-05-05 07:43] LABS: Hematocrit 33.2 % (39.0-52.0); Hemoglobin 11.1 g/dL (13.0-18.0); Mean Corp Hgb Conc. 33.4 g/dL (33.0-37.0); Mean Corpuscular Volume 89.7 fL (80.0-94.0); Mean Platelet Volume 9.4 fL (7.4-10.4); Platelet Count 359 10^3/uL (130-400); White Blood Cell Count 10.3 10^3/uL (4.8-10.8)
[2024-05-05 07:55] VITALS: BP 103/43
[2024-05-05 08:15] LABS: Blood Urea Nitrogen 33 mg/dl (9-20); Calcium 8.8 mg/dl (8.4-10.2); Carbon Dioxide 29 mmol/L (22-30); Chloride 96 mmol/L (98-107); Estimated Creatinine Clearance 59 ml/min; Glucose 106 mg/dl (70-99); Potassium 4.7 mmol/L (3.5-5.1); Sodium 134 mmol/L (135-145); eGFR > 60.00
[2024-05-05] MEDS: PROTONIX 40 MG PO (09:00)
[2024-05-05] MEDS: TYLENOL 1000 MG PO ×3 (09:00→23:04)
[2024-05-05] MEDS: ELIQUIS 5 MG PO ×2 (09:00→21:25)
[2024-05-05] MEDS: NEURONTIN 300 MG PO ×3 (09:00→21:24)
[2024-05-05] MEDS: LIDOCAINE 4% PATCH 2 PATCH TOPICAL (09:01)
[2024-05-05] MEDS: MS CONTIN (EXTENDED RELEASE) 30 MG PO ×2 (09:01→21:25)
[2024-05-05] MEDS: SIMBRINZA 1%-0.2% OPHTH SUSP 1 DROP RIGHT EYE ×2 (09:13→21:26)
[2024-05-05 12:43] VITALS: BP 111/73; PULSE 81; O2SAT 91
--- NOTE | 2024-05-05 15:10 | W.PN.HOSP.TC ---
Today's Communication/Plan
-
Order chest x-ray
Wean supplemental O2
PT/OT
Assessment / Plan
Assessment / Plan
#Acute hypoxemic respiratory insufficiency
-Unclear cause; differentials include aspiration among other various causes
-Per nursing he had SpO2 in the low 80s on room air yesterday
-As of this morning was put on 3 L of O2 via NC, SpO2 low 90s
-On exam there are no obvious adventitious sounds
-Order x-ray to assess for consolidation, infiltrations, edema
-Continue with home bronchodilator regimen
-Wean O2 for SpO2 goal >90%
-Consider speech and swallow eval
#Intractable pain
#Acute on chronic neck and right shoulder pain
-Imaging here showed interval increase in scattered lytic osseous metastases. No pathologic fractures
-Was trialed on a course of steroids pill was not beneficial, discontinued
-Currently on gabapentin 300 mg, Tylenol 1 g TID
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
-Patient states lidocaine patches helped significantly
-Currently on bowel regimen
#Stage IV non-small cell lung cancer
#13-[id number] smoking history
-Right upper lung lesion, s/p XRT 2019; now on Keytruda
-Currently on Anora Ellipta supportively for bronchodilation
-Imaging here with metastases to bone
-Follows with radiation oncology
#AF/AFL
-Home medications include metoprolol succinate and Eliquis
-No history of ablations known; does have history of AVELINO cardioversion in 03/2023
-Heart rate currently WNL and regular
#Hypertension
-Home medications include metoprolol and ramipril
-No known history of hypertensive systemic disease
-BP currently well-controlled here
#HLD
-Home medications include Crestor, no known ASCVD history
DVT prophylaxis: Home Eliquis
Diet: Regular
CODE STATUS: DNR
Anticipated Discharge: Within 24 hours
Subjective/Interval History
-
Date of Service: May 05, 2024
Seen and examined at the bedside. No acute events overnight. AFVSS on 3 L oxygen
Labs unremarkable. He denies any acute complaints, states his pain is overall improved and he thinks lidocaine was beneficial
Denies chest pain, dyspnea, fevers or chills, GI issues, urinary issues, bleeding or bruising, paresthesias or weakness
Objective Data
-
Labs:
Laboratory Results
05/05/24
07:34
WBC 10.3
Hgb 11.1 L
Hct 33.2 L
Plt Count 359
Sodium 134 L
Potassium 4.7
Chloride 96 L
Carbon Dioxide 29
BUN 33 H
Creatinine 0.9
Glucose 106 H
Calcium 8.8
Vital Signs:
Vital Signs
Temp Pulse Resp BP Pulse Ox
98.6 F 64 16 103/43 93
05/05/24 07:55 05/05/24 07:55 05/05/24 07:55 05/05/24 07:55 05/05/24 08:05
I&O
05/04/24 05/05/24 05/06/24
06:59 06:59 06:59
Intake Total 1290 / 1290 1380 / 1380
Output Total 1650 / 1650 1400 / 1400
Balance -360 / -360 -20 / -20
Review of Systems
-
History Source: Patient
All other systems: Reviewed and negative
Physical Exam
-
General: No Apparent Distress, Comfortable and Appears Chronically Ill
HEENT: Normocephalic, Atraumatic and Moist Mucous Membranes
Respiratory: Clear to Auscultation and Non Labored Respirations; Negative Wheezes, Rales, Rhonchi or Accessory Resp Muscle Use
Cardiac: Regular Rhythm and S1/S2; Negative Murmur, Rub or Gallop
GI: Soft, Nontender, Nondistended and Normal Bowel Sounds
Musculoskeletal: No Clubbing, No Cyanosis and No Edema
Skin: Warm and Dry; Negative Rash or Jaundice
Neuro: AO x 3, Nonfocal/Grossly Intact and Central Nerve's Intact
Psych: Calm
Data Reviewed
-
Diagnostic Radiology: Discussed with Nurse
Labs: Labs Reviewed by me and Discussed with Patient
--- NOTE | 2024-05-05 15:25 | CM ---
Reviewed the chart notes and spoke with the patient at the bedside. Patient continues on O2, unable to wean. Patient is a mod to max assist of two with mobility. Patient plans on receiving chemo and radiation treatment. Was to have first
appointment with radiation on Sunday for simulation. CM continues to be available to patient/family and is monitoring medical plan for needs at discharge.
Plan: Discharge to home when medically stable. If unable to wean from O2 will need to arrange for home O2.
--- NOTE | 2024-05-05 15:45 | W.PN.ONC2 ---
Today's Communication / Plan
-
pain management
XRT upon discharge
immunotherapy will remain on hold if needs SNF/acute rehab to optimize performance status
Impression
Impression
severe malignant pain
lung cancer, metastatic to bone
Plan
Plan
Continue MS Contin 30mg po q12, started 05/03/24 (OxyContin was denied by insurance)
Continue prn oxycodone.
Continue lidocaine patches, gabapentin
Bowel regimen
Steroids have been stopped; weren't helping and can blunt the efficacy of immunotherapy (Recently started systemic therapy w/ Keytruda)
Eventual additional radiation
d/c planning
Subjective/Objective
Chief Complaint
no new complaints
Subjective
OOB ->approx 1 hour, 2 assist with PT mod/max assist with walker
pain controlled
improved LE edema
BM x 1
son and at bedside provided updates
Vital Signs:
Vital Signs
Temp Pulse Resp BP Pulse Ox
98.6 F 64 16 103/43 93
05/05/24 07:55 05/05/24 07:55 05/05/24 07:55 05/05/24 07:55 05/05/24 08:05
Lab Results:
Laboratory Data
WBC 10.3 10^3/uL (4.8-10.8) 05/05/24 07:34
Hgb 11.1 g/dL (13.0-18.0) L 05/05/24 07:34
Plt Count 359 10^3/uL (130-400) 05/05/24 07:34
eGFR > 60.00 05/05/24 07:34
Physical Exam
General: Well Developed and Well Nourished; Comfortable
HEENT: Moist Mucous Membranes; Negative Jaundice
Cardiology: Normal Sinus Rhythm
Pulmonary: Clear
GI: Soft and Normal Bowel Sounds
Extremities: no edema
neuro A&O3, speech clear
Review of Systems
Review of Systems
ROS notable for subjective, otherwise negative
[2024-05-05 15:55] VITALS: BP 120/54
[2024-05-05] MEDS: ALTACE 5 MG PO (17:21)
[2024-05-05] MEDS: TOPROL XL 12.5 MG PO (17:26)
[2024-05-05] MEDS: SPIRIVA RESPIMAT 2.5 MCG 2 PUFF INH (20:22)
[2024-05-05] MEDS: SENOKOT-S 1 TABLET PO (21:25)
[2024-05-05] MEDS: REQUIP 0.25 MG PO (21:25)
[2024-05-05] MEDS: XALATAN OPHTHALMIC SOLUTION 1 DROP BOTH EYES (21:26)
[2024-05-05 23:38] VITALS: BP 112/52
[2024-05-06 05:09] VITALS: BMI 20.1
[2024-05-06 06:48] LABS: % Basophils 0.4 % (0-2); % Eosinophils 2.3 % (0-6); % Immature Granulocytes 0.6 % (0-0.5); % Lymphocytes 8.9 % (20.5-51.1); % Monocytes 11.1 % (1.7-9.3); % Neutrophils 76.7 % (42.2-75.2); Absolute Eosinophils 0.2 10^3/uL (0-0.7); Absolute Immature Granulocytes 0.1 10^3/uL (0-0.05); Absolute Lymphocytes 0.8 10^3/uL (1.2-3.4); Absolute Monocytes 1.1 10^3/uL (0.1-0.6); Absolute Neutrophils 7.3 10^3/uL (1.4-6.5); Hemoglobin 10.9 g/dL (13.0-18.0); Mean Corpuscular Hgb 31.1 pg (27.0-31.0); Mean Platelet Volume 10.3 fL (7.4-10.4); Nucleated Red Blood Cells % 0 % (-); Platelet Count 350 10^3/uL (130-400); Red Blood Cell Count 3.51 10^6/uL (4.70-6.10); Red Cell Dist. Width 15.9 % (11.5-14.5); White Blood Cell Count 9.5 10^3/uL (4.8-10.8)
[2024-05-06 07:16] LABS: Blood Urea Nitrogen 31 mg/dl (9-20); Calcium 8.8 mg/dl (8.4-10.2); Carbon Dioxide 34 mmol/L (22-30); Chloride 93 mmol/L (98-107); Estimated Creatinine Clearance 66 ml/min; Glucose 102 mg/dl (70-99); Potassium 5.1 mmol/L (3.5-5.1); Sodium 134 mmol/L (135-145); eGFR > 60.00
[2024-05-06 07:45] VITALS: BP 113/66
[2024-05-06] MEDS: TYLENOL 1000 MG PO ×2 (08:41→16:55)
[2024-05-06] MEDS: NEURONTIN 300 MG PO ×2 (08:41→16:55)
[2024-05-06] MEDS: SIMBRINZA 1%-0.2% OPHTH SUSP 1 DROP RIGHT EYE (08:42)
[2024-05-06] MEDS: LIDOCAINE 4% PATCH 2 PATCH TOPICAL (08:42)
[2024-05-06] MEDS: ELIQUIS 5 MG PO (08:42)
[2024-05-06] MEDS: PROTONIX 40 MG PO (08:42)
[2024-05-06] MEDS: MS CONTIN (EXTENDED RELEASE) 30 MG PO (08:42)
--- NOTE | 2024-05-06 09:45 | PTOTSP ---
Speech Language Pathology
Pt seen for clinical bedside swallow evaluation. Pt endorsed chronic globus sensation in throat with P.O. intake. Esophagram completed in January 2024 with findings of dysmotility. Barium tablet also noted to stick in vallecula and report questioned
need for speech evaluation. P.O. trials of regular solids and thin liquids provided. Adequate mastication noted. Frequent wet coughing noted with thin liquids, question aspiration. Pt with current questionable PNA.
Given coughing with liquids, pharyngeal residue noted on esophagram in January, and current questionable PNA, recommend VSE. However, pt does not wish to complete study at this time given overwhelm with medical situation and fatigue. He would like to
continue regular solids/thin liquids at this time. PET HANDLER to sign off per his request. Can consider outpatient VSE.
--- NOTE | 2024-05-06 12:46 | W.PN.HOSP.TC ---
Addendum entered and electronically signed by Jerry Arredondo, 05/06/24 14:23:
Pt is in need of 02 at 2L nasal canula continuously at rest and 3L nasal canula with exertion due to pulse ox of 85% RA at rest. 02 will help to improve hypoxemia. Patient is mobile within the home. Duoneb therapy has been discussed and has been
ineffective in treating hypoxemia. Pt is in need of 02 on exertion d/t pulse ox of 85% RA at rest and 85% RA w/ambulation. Patient was placed on 3L NC during ambulation with sat increased to 93% and improvement of symptoms
Original Note:
Today's Communication/Plan
-
Wean oxygen as able
Continue with incentive spirometer
Possible discharge today
Outpatient VSE
Assessment / Plan
Assessment / Plan
#Acute hypoxemic respiratory insufficiency
-Unclear cause; differentials include aspiration among other various causes
-Per nursing he had SpO2 in the low 80s on room air yesterday
-As of this morning was put on 3 L of O2 via NC, SpO2 low 90s
-On exam there are no obvious adventitious sounds
-Chest x-ray showed likely atelectasis, ordered IS
-Speech and swallow recommending VSE, outpatient as he does not want
-Continue with home bronchodilator regimen
-Wean O2 for SpO2 goal >90%
#Intractable pain
#Acute on chronic neck and right shoulder pain
-Imaging here showed interval increase in scattered lytic osseous metastases. No pathologic fractures
-Was trialed on a course of steroids pill was not beneficial, discontinued
-Currently on gabapentin 300 mg, Tylenol 1 g TID
-OPEN WINDER Percocet 10 mg increased to Q4PRN
-Patient states lidocaine patches helped significantly
-Currently on bowel regimen
#Stage IV non-small cell lung cancer
#[id number] smoking history
-Right upper lung lesion, s/p XRT 2019; now on Keytruda
-Currently on Anora Ellipta supportively for bronchodilation
-Imaging here with metastases to bone
-Follows with radiation oncology
#AF/AFL
-Home medications include metoprolol succinate and Eliquis
-No history of ablations known; does have history of AVELINO cardioversion in 03/2023
-Heart rate currently WNL and regular
#Hypertension
-Home medications include metoprolol and ramipril
-No known history of hypertensive systemic disease
-BP currently well-controlled here
#HLD
-Home medications include Crestor, no known ASCVD history
DVT prophylaxis: Home Eliquis
Diet: Regular
CODE STATUS: DNR
Anticipated Discharge: Within 24 hours
Subjective/Interval History
-
Date of Service: May 06, 2024
Seen and examined at the bedside. No acute vents overnight. AFVSS on 3 L oxygen.
X-ray yesterday showed pneumonia versus atelectasis, higher suspicion for atelectasis based off of his minimal mobility here, lack of fevers or leukocytosis. IS ordered.
He denies any acute complaints including dyspnea, chest pain, fevers or chills
Objective Data
-
Labs:
Laboratory Results
05/06/24
05:30
WBC 9.5
Hgb 10.9 L
Hct 33.0 L
Plt Count 350
Sodium 134 L
Potassium 5.1
Chloride 93 L
Carbon Dioxide 34 H
BUN 31 H
Creatinine 0.8
Glucose 102 H
Calcium 8.8
Vital Signs:
Vital Signs
Temp Pulse Resp BP Pulse Ox
98.3 F 74 16 113/66 93
05/06/24 07:45 05/06/24 07:45 05/06/24 07:45 05/06/24 07:45 05/06/24 09:40
I&O
05/05/24 05/06/2424
06:59 06:59 06:59
Intake Total 1380 / 1380 1200 / 1200
Output Total 1400 / 1400 2094
Balance -20 / -20 -895 / -895
Review of Systems
-
History Source: Patient
All other systems: Reviewed and negative
Physical Exam
-
General: No Apparent Distress, Comfortable, Appears Chronically Ill and Other (Frail)
HEENT: Normocephalic, Atraumatic and Moist Mucous Membranes
Respiratory: Clear to Auscultation and Non Labored Respirations; Negative Wheezes, Rales, Rhonchi or Accessory Resp Muscle Use
Cardiac: Regular Rhythm and S1/S2; Negative Murmur, Rub or Gallop
GI: Soft, Nontender, Nondistended and Normal Bowel Sounds
Musculoskeletal: No Clubbing, No Cyanosis and No Edema
Skin: Warm and Dry; Negative Rash
Neuro: AO x 3, Nonfocal/Grossly Intact and Central Nerve's Intact
Psych: Calm
Data Reviewed
-
Diagnostic Radiology: Image personally visualized and interpreted, Report Reviewed by me and Discussed with Patient
--- NOTE | 2024-05-06 14:23 | W.DCSUMMARY ---
Discharge Summary
Discharge Data
Date of Admission: 05/02/24
Date of Discharge: 05/06/24
-
Pending Results: No
Hospital Course
78-year-old male with stage IV non-small cell lung cancer on Keytruda, AF/AFL (on Eliquis), HTN, HLD, BPH that presented with intractable cancer related pain due to bone metastases. Was titrated on a pain regimen with extended release morphine 30
mg twice daily, lidocaine patch which improved his state and living with his pain.
He developed hypoxemia while in the hospital. Chest x-ray with atelectasis versus pneumonia. No fevers or leukocytosis, required up to 3 L of supplemental oxygen at rest max. Suspicion for atelectasis and possibly component of aspiration. Was
recommended to have video swallow exam while in the hospital the patient preferred outpatient testing. Prescription was provided for after hospital. Discharged on full diet with incentive spirometer. Continue with an oral Ellipta that was
previously part of home medication.
PT/OT evaluated patient here. Determined that he would be suitable for SNF however patient refused and preferred disposition to home. Case management helped establish visiting nurse, home PT. Home oxygen was established as well.
Discharge Plan
-
Patient Disposition: Home (Routine Discharge)
Discharge Diagnosis/Procedures: severe malignant pain
lung cancer, metastatic to bone
Hypoxemia
Condition: Fair
Diet: Low Fat and Low Cholesterol
Activity: As tolerated
Driving Restrictions: No driving
Bathing Restrictions: None
Others Tests: Video Swallow Exam
Other Services: VN, PT and OT
Activity Restrictions/Additional Instructions:
Schedule follow-up appointment with family doctor and oncologist days of discharge from the hospital
Referrals:
Rere Sandoval, [Active] - in one to two weeks (or your regular oncologist)
Jimenez Fitzpatrick MD [Family Provider] - in less than 1 week
Additional Discharge Medication Instructions: Use lidocaine 5% patches applied to site of pain
Continue morphine 30 mg extended release twice daily
Continue oxycodone as needed for breakthrough pain (5 mg for moderate, 10 mg for severe) every 4 hours
Continue bowel regimen with sennoside�docusate, bisacodyl suppository as needed
Continue gabapentin 3 mg 3 times a day
Prescriptions:
New
acetaminophen [Tylenol Extra Strength] 500 mg Tablet
1,000 mg PO Q8H 14 Days Qty: 84 0RF
morphine 30 mg Tablet Extended Release
30 mg PO Q12 10 Days Qty: 20 0RF
bisacodyl 10 mg Suppository
10 mg [place] [id number] PRN (Reason: constipation) Qty: 50 0RF
gabapentin 300 mg Capsule
300 mg PO TID 30 Days Qty: 90 0RF
sennosides-docusate sodium 8.6-50 mg Tablet
1 tab PO BIDPRN PRN (Reason: constipation) Qty: 240 0RF
lidocaine 4 % Adhesive Patch,Medicated
2 patch topical DAILY Qty: 60 0RF
lidocaine 5 % adhesive patch,medicated
1 patch topical DAILY 30 Days Qty: 30 0RF
Continued
ramipril 5 MG capsule
5 mg PO QPM
rosuvastatin 20 MG tablet
20 mg PO QPM
travoprost 0.004 % drops
1 drp BOTH EYES HS
[id number]-[id number] Tablet
2 tab PO DAILY
Simbrinza 1-0.2 % Drops,Suspension
1 drp RIGHT EYE BID
Anoro Ellipta 62.5-25 mcg/actuation blister with device
1 inh INHALATION R QPM
Eliquis 5 mg Tablet
5 mg PO BID Qty: 60 5RF
omeprazole 40 mg capsule,delayed release(DR/EC)
40 mg PO DAILY
Fiber Gummies
4 tab PO DAILY
metoprolol succinate 25 mg tablet extended release 24 hr
12.5 mg PO QPM
clobetasol 0.05 % Cream
1 applic TOPICAL DAILY PRN (Reason: itching)
ropinirole 0.25 mg Tablet
0.25 mg PO HS
levalbuterol tartrate 45 mcg/actuation Hfa Aerosol Inhaler
2 inh INHALATION Q6H PRN (Reason: sob)
polyethylene glycol 3350 [HealthyLax] 17 gram Powder In Packet
17 g PO DAILYPRN PRN (Reason: constipation) Qty: 100 0RF
sennosides-docusate sodium 8.6-50 mg Tablet
1 tab-cap PO HS Qty: 60 0RF
Changed
oxycodone 5 mg tablet
10 mg PO Q4HPRN PRN (Reason: Pain) Qty: 36 0RF
Rx Instructions:
5mg 1 tab [id number] 4-7
10mg 2 tabs [id number] 8-10
Discontinued
acetaminophen [Tylenol Extra Strength] 500 mg Tablet
500 mg PO Q6HPRN PRN (Reason: mild pain)
gabapentin 300 mg Capsule
300 mg PO BID
Discharge Orders:
Discharge Patient (As Directed); Ordered 05/06/24
Ordered By: Jerry Arredondo
Discharge Date and Time
Print Language: TURKMEN
--- NOTE | 2024-05-06 14:53 | VNURNOTE ---
Patient ordered home 02. 02 set up with [facility]. Confirmed with Tabitha at [facility] that portable concentrator can be delivered to patient's room in 2 hours. Liaison spoke with patient, explained home 02 ordered and time frame for delivery at
bedside. Patient verbalized understanding.
--- NOTE | 2024-05-06 15:14 | CM ---
Reviewed the chart notes and spoke with the patient at bedside and spouse via telephone. Both are in agreement with home with [facility] and home O2. Visiting nurses arranged for O2 to be delivered to the patient's room for discharge and home.
CM continues to be available to patient/family and is monitoring medical plan for needs at discharge.
Plan: Discharge to home with [facility] and O2 arranged through VN.
[2024-05-06 15:40] VITALS: BP 115/51
[2024-05-06] MEDS: ALTACE 5 MG PO (16:55)
[2024-05-06] MEDS: TOPROL XL 12.5 MG PO (16:55)
== END 2024-05-06 17:55 | disposition home health service (06) ==
LOC: 2 NORTH 22:14
PROVIDERS: Internal Medicine; Physician Assistant Medical; ADMITTING PHYSICIAN Internal Medicine; ATTENDING PHYSICIAN Internal Medicine; EMERGENCY PHYSICIAN Emergency Medicine; FAMILY PHYSICIAN Family Medicine; OTHER PHYSICIAN Internal Medicine Hematology & Oncology
DX: G89.3 Neoplasm related pain (acute) (chronic) (principal); R10.2 Pelvic and perineal pain; M25.552 Pain in left hip; C79.51 Secondary malignant neoplasm of bone; C34.90 Malignant neoplasm of unspecified part of unspecified bronchus or lung; R26.9 Unspecified abnormalities of gait and mobility; E87.1 Hypo-osmolality and hyponatremia; R06.89 Other abnormalities of breathing; M25.511 Pain in right shoulder; M54.2 Cervicalgia; R09.02 Hypoxemia; J44.9 Chronic obstructive pulmonary disease, unspecified; I10 Essential (primary) hypertension; I48.0 Paroxysmal atrial fibrillation; F17.210 Nicotine dependence, cigarettes, uncomplicated; E78.00 Pure hypercholesterolemia, unspecified; R60.0 Localized edema; M19.90 Unspecified osteoarthritis, unspecified site; R94.31 Abnormal electrocardiogram [ECG] [EKG]; I71.21 Aneurysm of the ascending aorta, without rupture; M47.816 Spondylosis without myelopathy or radiculopathy, lumbar region; F10.21 Alcohol dependence, in remission; K59.00 Constipation, unspecified; N40.1 Benign prostatic hyperplasia with lower urinary tract symptoms; R35.0 Frequency of micturition; Z90.49 Acquired absence of other specified parts of digestive tract; Z79.01 Long term (current) use of anticoagulants; Z82.49 Family history of ischemic heart disease and other diseases of the circulatory system; Z87.19 Personal history of other diseases of the digestive system; Z66 Do not resuscitate; Z92.3 Personal history of irradiation; Z92.21 Personal history of antineoplastic chemotherapy
CPT/HCPCS: 71045; 71275; 72193; 73502; 80048; 83880; 84439; 84443; 84481; 85025; 85027; 92610; 94640; 96374; 96375; 97163; 97530; 99285; G0378; Q9967

== ENCOUNTER 2024-05-08 15:11 | Inpatient (IN) | payer MEDICARE, OTHER, SELFPAY ==
[2024-05-06 20:31] VITALS: BP 151/81
--- NOTE | 2024-05-06 20:57 | ED.GENMED ---
History of Present Illness
General
Chief Complaint: Extremity Pain (non-traumatic)
Source: patient and spouse
Exam Limitations: none
Time Seen by Provider: 05/06/24 20:39
Nursing documentation reviewed up to this point in time: agreed with
History of Present Illness
History of Present Illness:
Patient to ED wtih history of lung CA with bone mets. He was discharged home from here today but returned because he was unable to get out of car into his home due to pain. As per patient, he was encouraged to transfer to a rehab facility but he
declined, wanted to be discharged home. Unable to ambulate or transfer at this point due to pain in hip and LLE. Brought back to ED by for eval. Requesting admission to rehab facility.l
Past History
Past History
ED Past Medical History: HTN and Other (Diverticulitis)
ED Past Surgical History: Appendectomy, Orthopedic (Wrist surgery) and Tonsilectomy
Social History
Tobacco: Smoker
Alcohol: Occasional
Drug: None
Personal:
Living: with family
Employment: Employed
Review of Systems
Review of Systems
Allergies reviewed?: Yes
All Other Systems: ROS reviewed and negative except as documented in HPI and ROS
Constitutional: Reports no symptoms
EENT: Reports no symptoms
Respiratory: Reports no symptoms
Cardiac: Reports no symptoms
ABD/GI: Reports no symptoms
Musculoskeletal: Reports other (Pain to left pelvis, LLE)
Skin: Reports no symptoms
Neurological: Reports weakness
Psychiatric: Reports no symptoms
Phy Exam
General Physical Exam
General Presentation: well appearing and mild distress
General age: appears stated age
General Skin: warm and dry
General Habitus: normal
General Mental: alert
Cardiovascular Exam
Cardiovascular Exam: regular rate/rhythm and no edema
Pulmonary Exam
Pulmonary Exam: no respiratory distress and chest non tender
Gastrointestinal Exam
Gastrointestinal Exam: non tender and soft
Musculoskeletal Exam
Musculoskeletal Exam: neuro vasc intact and other (Metastatic cancer pain to left pelvis, LLE)
Skin Exam
Skin Exam: normal color, warm/dry and no rash
Psychiatric Exam
Psychiatric Exam: normal mood/affect
Course
Orders/Labs/Results
Orders:
Orders
05/06/24 Breakfast
Regular
At Your Request: Full Participation
05/06/24 21:02
Morphine Sulfate Extended Rel. [Ms Contin (Extended Release)] 30 mg PO NOW STA
05/06/24 21:15
Complete Blood Count/With Diff Urgent
Comprehensive Metabolic Panel Urgent
05/06/24 21:52
Admit/Transfer Patient As Directed
Co-Sign Provider:
Level of Care: Observation services
Assign to:: Medical/Surgical
Physician / Group: ramone fraser
Diagnosis: acute hypoxia/
05/06/24 21:53
PRN Pain Medication Management As Directed
May give lesser potent ordered pain med per pt: Yes
preference::
Protocol:: Medication orders for pain may be administered in a
manner that supports deferring to patient preference
when the pt is:
- Requesting an ordered lesser potent pain medication.
Least to most potent pain medications are defined
as: acetaminophen < NSAID < tramadol < opioids
(morphine, oxycodone, hydromorphone).
- Requesting a lesser dose of the same medication IF
ORDERED.
- Requesting a less intrusive route of administration
if both routes are prescribed by the provider (PO <
IV).
05/06/24 21:55
Metoprolol Xl [Toprol Xl] 12.5 mg PO NOW STA
05/06/24 21:56
Apixaban [Eliquis] 5 mg PO ONCE ONE
05/06/24 21:57
Ropinirole [Requip] 0.25 mg PO ONCE ONE
05/06/24 21:58
Code Status As Directed
Resuscitation Status: Do not resuscitate
Reached after discussion with pt or family/Healthcare POA: Yes
DNR Bracelet Application ONCE
05/06/24 22:00
Acetaminophen [Tylenol] 1,000 mg PO Q8H
Flush (0.9% Sodium Chloride) [Flush (Nss)] See Dose Instructions IV PER PROTOCOL
05/06/24 22:39
Bisacodyl [Dulcolax] 10 mg RECTAL [id number] PRN
Docusate W/Senna [Senokot-S] 1 tablet PO BIDPRN PRN
Docusate W/Senna [Senokot-S] 1 tablet PO HS
Gabapentin [Neurontin] 300 mg PO TID
Levalbuterol Tartrate [Xopenex Hfa 45 Mcg Inhaler] 2 puff INH R Q6HPRN PRN
Oxycodone [Roxicodone] 10 mg PO Q4HPRN PRN
Polyethylene Glycol Powder [Miralax] 17 grams PO DAILYPRN PRN
clobetasol 1 applic TOPICAL DAILYPRN PRN
05/06/24 22:39
Case Management Consult ONCE
Case Management Consult: Discharge Planning
Activity As Directed
Activity Level: As Tolerated
Vital Signs As Directed
Frequency: Per unit guidelines
Xopenex Reason for Use As Directed
Reason for ordering Xopenex instead of Albuterol: tachycardia
O2 Therapy [RESP] Routine
Titrate/Wean O2 to maintain O2 sat greater than (%): 92
05/06/24 23:00
Latanoprost [Xalatan Ophthalmic Solution] See Dose Instructions BOTH EYES HS
05/07/24 06:00
Basic Metabolic Panel IN AM
Complete Blood Count/No Diff IN AM
05/07/24 08:00
Apixaban [Eliquis] 5 mg PO BID
Brinzolamide/Brimonidine Tart [Simbrinza 1%-0.2% Ophth Susp] See Dose Instructions RIGHT EYE BID
Lidocaine [Lidocaine 4% Patch] 1 patch TOPICAL DAILY
Lidocaine [Lidocaine 4% Patch] 2 patch TOPICAL DAILY
Apply Lidocaine patch(s) to:: hip
Pantoprazole [Protonix] 40 mg PO DAILY
05/07/24 10:00
Morphine Sulfate Extended Rel. [Ms Contin (Extended Release)] 30 mg PO Q12H
05/07/24 18:00
Metoprolol Xl [Toprol Xl] 12.5 mg PO QPM
Ramipril [Altace] 5 mg PO QPM
Rosuvastatin Calcium [Crestor] 20 mg PO QPM
05/07/24 20:00
Tiotropium [place] 2.5 Mcg [Spiriva Respimat 2.5 Mcg] 2 puff INH R QPM
05/07/24 22:00
Ropinirole [Requip] 0.25 mg PO HS
Abnormal Lab Results
05/06/24
21:15
WBC 15.3 H 10^3/uL
(4.8-10.8)
RBC 3.72 L 10^6/uL
(4.70-6.10)
Hgb 11.7 L g/dL
(13.0-18.0)
Hct 34.3 L %
(39.0-52.0)
MCH 31.5 H pg
(27.0-31.0)
RDW 15.5 H %
(11.5-14.5)
Abs Immat Gran (auto) 0.1 H 10^3/uL
(0-0.05)
Absolute Neuts (auto) 13.6 H 10^3/uL
(1.4-6.5)
Absolute Lymphs (auto) 0.4 L 10^3/uL
(1.2-3.4)
Absolute Monos (auto) 1.1 H 10^3/uL
(0.1-0.6)
Immature Gran % 0.9 H %
(0-0.5)
Neutrophils % 89.1 H %
(42.2-75.2)
Lymphocytes % 2.5 L %
(20.5-51.1)
Sodium 132 L mmol/L
(135-145)
Chloride 97 L mmol/L
(98-107)
BUN 28 H mg/dl
(9-20)
Glucose 164 H mg/dl
(70-99)
Total Protein 5.2 L g/dl
(6.3-8.2)
Albumin 2.9 L g/dl
(3.5-5.0)
05/06/24 21:15
05/06/24 21:15
Vital Signs
Initial and Last Documented VS:
Initial Vital Signs
Temp Pulse Resp BP Pulse Ox
97.6 F 111 20 151/81 90
05/06/24 20:31 05/06/24 20:31 05/06/24 20:31 05/06/24 20:31 05/06/24 20:31
Last Documented Vital Signs
Temp Pulse Resp BP Pulse Ox
98.5 F 101 20 122/58 95
05/07/24 00:30 05/06/24 22:30 05/06/24 20:31 05/06/24 22:29 05/07/24 00:31
MDM/Problems Addressed
Differential Diagnosis Includes:
Patient with hx lung CA with bone mets. He was discharged home today from here after admission for intractable pain. He was encouraged to go to rehab facility but he declined. States he was unable to get out of car at home and returns to ED for
admission to a rehab facilty. No new complaints. Weak and unable to tranfer/stand without max assist. WIll admit to hospitalist, case management consult in AM
*Critical Care Note
Total Time (30-74mins, 75-104mins- exclusive of procedures): Not Applicable
ED Attending Note
-
Portions of this chart may have been created with voice recognition software.� Occasional wrong word or��sound alike� substitutions may have occurred due to the inherent limitations of voice recognition software.
Discharge Plan
Departure
Patient Disposition: Admit
Date of Disposition: 05/06/24
Time of Disposition: 21:04
Presentation/result/management discussed w/ accepting MD/DO: Hospitalist
Patient with high blood pressure during this ER visit?: No
Condition: Fair
Covid-19: Not Applicable
Discharge Problem:
Weakness
Interventions
Interventions:
*Risk Screen - Suicide Last Done: 05/06/24 20:31
*General Assessment Last Done: 05/06/24 20:31
*Neglect/Abuse Screening Last Done: 05/06/24 21:22
*ED COVID-19 Vaccine History Last Done: 05/07/24 00:29
ED-Skin Assessment Last Done: 05/06/24 21:22
ED-Musculoskeletal Assessment Last Done: 05/06/24 21:22
[2024-05-06 21:00] VITALS: BP 126/59
[2024-05-06] MEDS: MS CONTIN (EXTENDED RELEASE) 30 MG PO (21:13)
[2024-05-06 21:28] LABS: % Basophils 0.3 % (0-2); % Eosinophils 0.3 % (0-6); % Immature Granulocytes 0.9 % (0-0.5); % Lymphocytes 2.5 % (20.5-51.1); % Monocytes 6.9 % (1.7-9.3); % Neutrophils 89.1 % (42.2-75.2); Absolute Immature Granulocytes 0.1 10^3/uL (0-0.05); Absolute Lymphocytes 0.4 10^3/uL (1.2-3.4); Absolute Monocytes 1.1 10^3/uL (0.1-0.6); Absolute Neutrophils 13.6 10^3/uL (1.4-6.5); Hematocrit 34.3 % (39.0-52.0); Hemoglobin 11.7 g/dL (13.0-18.0); Mean Corp Hgb Conc. 34.1 g/dL (33.0-37.0); Mean Corpuscular Hgb 31.5 pg (27.0-31.0); Mean Corpuscular Volume 92.2 fL (80.0-94.0); Mean Platelet Volume 9.7 fL (7.4-10.4); Nucleated Red Blood Cells % 0 % (-); Platelet Count 389 10^3/uL (130-400); Red Blood Cell Count 3.72 10^6/uL (4.70-6.10); Red Cell Dist. Width 15.5 % (11.5-14.5); White Blood Cell Count 15.3 10^3/uL (4.8-10.8)
--- NOTE | 2024-05-06 21:31 | HPS.HSE ---
Addendum entered and electronically signed by Irwin Hoyt MD 05/06/24 22:10:
I saw and examined the patient.
The MODERN GREEK STUDIES PROFESSOR or PA's note was reviewed and I agree with the note.
Comment:
78M HX Metastatic lung CA to bones, AF , HTN , HLD was DC' d today. He was offered SNF but declined. He retured to ER with worsening pain.
He was not able to walk to the home due to generalized pain and sob and weak.
Unable to ambulate or transfer at this point due to pain in hip and LLE.
Clinically unchanged from time of disposition
Brought back to ED
Requesting admission to rehab facility.
- RM consult for SNF
Original Note:
Family Physician
-
Family Physician: Jimenez Fitzpatrick
Chief Complaint
-
pain
History of Present Illness
78 year old with PMH for lung ca hamilton to the bone, atrial fib, htn, hld presented to us with worsening pain. he was discharge to home today. patient was not able to walk to the home due to generalized pain and sob. he was noted very weak. As per
patient, he was encouraged to transfer to a rehab facility but he declined, wanted to be discharged home. he is Unable to ambulate or transfer at this point due to pain in hip and LLE. Brought back to ED Requesting admission to rehab facility.
patient stated dizzy. denied syncopal episode. denied chest pain, sob. denied abdominal pain,n,v,d. denied dysuria or hematuria.
admitting for further management.
Medical History
Past Medical History
Past Medical History: Reports Other
Additional Past Medical History:
atrial fib
lung ca
dysphagia
htn
copd
hld
bph
Past Surgical History: Reports Other
Additional Past Surgical History:
appendectomy
hernia repair
left wrist carpectomy
b/l cataract surgery
Social History
Tobacco: Former Smoker
Alcohol: None
Drug: None
Personal:
Family History
Family History: Not pertinent
Allergies / Home Medications
Allergies reflects when Allergies were last updated in [facility].
Home Medications with original date entered in [facility]
Allergy/Medication List:
Allergies
Allergy/AdvReac Type Severity Reaction Status Date / Time
adhesive Allergy SEE COMMENT Verified 05/06/24 20:30
Hayfever Allergy Sneezing, Uncoded 05/06/24 20:30
watery/itchy
eyes,
stuffy nose
Home Medications
ramipril 5 mg capsule 5 mg PO QPM Blood Pressure 08/15/18
rosuvastatin 20 mg tablet 20 mg PO QPM High Cholesterol 08/15/18
brinzolamide 1 %-brimonidine 0.2 % eye drops,suspension (Simbrinza) 1 drp RIGHT EYE BID Eye Condition 04/09/23
anzcwethnnko-xkkwdyry-sltrjt tablet 2 tab PO DAILY Supplement 04/09/23
travoprost 0.004 % eye drops 1 drp BOTH EYES HS Eye Condition 04/09/23
umeclidinium 62.5 mcg-vilanterol 25 mcg/actuation powdr for inhalation (Anoro Ellipta) 1 inh inhalation R QPM Lung/Breathing Issues 04/09/23
apixaban 5 mg tablet (Eliquis) 5 mg PO BID #60 tabs 04/10/23
Fiber Gummies 4 tab PO DAILY Constipation 03/03/24
metoprolol succinate 25 mg tablet,extended release 24 hr 12.5 mg PO QPM Blood Pressure 03/03/24
omeprazole 40 mg capsule,delayed release 40 mg PO DAILY Gastrointestinal Issue 03/03/24
clobetasol 0.05 % topical cream 1 applic topical DAILYPRN PRN itching 05/02/24
levalbuterol tartrate 45 mcg/actuation aerosol inhaler 2 inh inhalation Q6H PRN sob 05/02/24
ropinirole 0.25 mg tablet 0.25 mg PO HS Neurological Condition 05/02/24
acetaminophen 500 mg tablet (Tylenol Extra Strength) 1,000 mg (2 x 500 mg) PO Q8H 14 days #84 tabs 05/04/24
bisacodyl 10 mg rectal suppository 10 mg ID [id number] PRN constipation #50 ea 05/04/24
gabapentin 300 mg capsule 300 mg PO TID 30 days #90 caps 05/04/24
oxycodone 5 mg tablet 10 mg (2 x 5 mg) PO Q4HPRN PRN Pain #36 tabs 05/04/24
polyethylene glycol 3350 17 gram oral powder packet (HealthyLax) 17 g PO DAILYPRN PRN constipation #100 ea 05/04/24
sennosides 8.6 mg-docusate sodium 50 mg tablet 1 tab PO BIDPRN PRN constipation #240 tabs 05/04/24
sennosides 8.6 mg-docusate sodium 50 mg tablet 1 tab-cap PO HS Constipation #60 tabs 05/04/24
lidocaine 4 % topical patch 2 patch topical DAILY each hip 05/06/24
lidocaine 5 % topical patch 1 patch topical DAILY Pain 1 month #30 ea 05/06/24
morphine 30 mg tablet,extended release 30 mg PO Q12H 05/06/24
Review of Systems
-
Constitutional: Reports No Symptoms
EENT: Reports No Symptoms
Respiratory: Reports No Symptoms
Cardiac: Reports No Symptoms
Abdomen/GI: Reports No Symptoms
: Reports No Symptoms
Musculoskeletal: Reports No Symptoms
Skin: Reports No Symptoms
Neurological: Reports No Symptoms
Endocrine: Reports No Symptoms
Hematologic/Lymphatic: Reports No Symptoms
Psych: Reports No Symptoms
Physical Exam
Vital Signs
Vital Signs
Temp Pulse Resp BP Pulse Ox
97.6 F 111 20 151/81 90
05/06/24 20:31 05/06/24 20:31 05/06/24 20:31 05/06/24 20:31 05/06/24 20:31
Physical Exam
General: Well Developed, Well Nourished and No Apparent Distress
HEENT: NormoCephalic, Moist mucous membranes and Atraumatic
Respiratory: Clear
Cardiac: S1/S2 and Regular Rhythm; No Murmur or Rub
GI: Soft, Non Tender, Non Distended and Normal Bowel Sounds; No Organomegaly
Rectal: Deferred by Provider
Musculoskeletal: No Clubbing, No Cyanosis and No Edema
Skin: No Rash
Neuro: AO x 3 and Nonfocal/grossly intact
Psych: Calm
Laboratory Results
-
05/06/24 21:15
Data Reviewed
-
Lab Data: Labs Reviewed by me
Impression/Plan
-
#lung ca with hamilton/s/
#Stage IV non-small cell lung ca
#Acute hypoxemic respiratory insufficiency likely from metastatic disease
-at present requiring 3l.
-Chest x-ray showed likely atelectasis, ordered IS
-Continue with home bronchodilator regimen
-Wean O2 for SpO2 goal >90%
-ctm
#leukocytosis likely from steroids
-patient is afebrile, ctm
#Intractable pain likely from metastatic disease
#Acute on chronic neck and right shoulder pain
-Imaging here showed interval increase in scattered lytic osseous metastases. No pathologic fractures
-was on steroids with no relief in his symptoms
-Currently on gabapentin 300 mg, Tylenol 1 g TID
-DOCTORATE OF CHIROPRACTIC Percocet 10 mg increased to Q4PRN
-lidocaine patch continued
#stage IV lung ca
-Right upper lung lesion, s/p XRT 2019; now on Keytruda
-Currently on Anora Ellipta supportively for bronchodilation
-Imaging here with metastases to bone
-Follows with radiation oncology
#AF/AFL
-Home medications include metoprolol succinate and Eliquis
does have history of AVELINO cardioversion in 03/2023
-Heart rate currently WNL and regular
#Hypertension
-Home medications include metoprolol and ramipril
#HLD
-crestor continued
DVT prophylaxis: Home Eliquis
Diet: Regular
CODE STATUS: DNR
[2024-05-06 21:42] LABS: ALT (SGPT) 24 U/L (0-50); AST (SGOT) 30 U/L (17-59); Albumin 2.9 g/dl (3.5-5.0); Alkaline Phosphatase 62 U/L (38-126); Blood Urea Nitrogen 28 mg/dl (9-20); Calcium 8.4 mg/dl (8.4-10.2); Carbon Dioxide 28 mmol/L (22-30); Chloride 97 mmol/L (98-107); Glucose 164 mg/dl (70-99); Potassium 4.2 mmol/L (3.5-5.1); Sodium 132 mmol/L (135-145); Total Bilirubin 0.7 mg/dl (0.2-1.3); Total Protein 5.2 g/dl (6.3-8.2); eGFR > 60.00
[2024-05-06 22:00] VITALS: BP 127/73
[2024-05-06] MEDS: ELIQUIS 5 MG PO (22:20)
[2024-05-06] MEDS: TOPROL XL 12.5 MG PO (22:20)
[2024-05-06 22:29] VITALS: BP 122/58
[2024-05-07] VITALS (18 sets, daily range): BP systolic 93–133; BP diastolic 48–74; BMI 21.5; BMI 19.9
[2024-05-07] MEDS: TYLENOL 1000 MG PO ×4 (00:22→22:38)
[2024-05-07] MEDS: SENOKOT-S PO (00:22)
[2024-05-07] MEDS: NEURONTIN 300 MG PO ×4 (00:22→22:39)
[2024-05-07] MEDS: REQUIP 0.25 MG PO ×2 (00:23→22:39)
[2024-05-07] MEDS: ROXICODONE 10 MG PO (00:28)
[2024-05-07] MEDS: XALATAN OPHTHALMIC SOLUTION BOTH EYES (04:03)
--- NOTE | 2024-05-07 04:03 | DOWNTIME ---
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 Downtime documentation of patient's care, including medication administrations, has been reconciled in the electronic record per guidelines. Refer to the
patient's paper chart under the miscellaneous tab to see printed paper medication records and downtime forms.
--- NOTE | 2024-05-07 04:43 | DOWNTIME ---
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 Downtime documentation of patient's care, including medication administrations, has been reconciled in the electronic record per guidelines. Refer to the
patient's paper chart under the miscellaneous tab to see printed paper medication records and downtime forms.
[2024-05-07 05:52] LABS: Hemoglobin 11.1 g/dL (13.0-18.0); Mean Corp Hgb Conc. 34.7 g/dL (33.0-37.0); Mean Corpuscular Hgb 31.8 pg (27.0-31.0); Mean Corpuscular Volume 91.7 fL (80.0-94.0); Mean Platelet Volume 9.7 fL (7.4-10.4); Platelet Count 373 10^3/uL (130-400); Red Blood Cell Count 3.49 10^6/uL (4.70-6.10); Red Cell Dist. Width 15.6 % (11.5-14.5)
[2024-05-07 06:03] LABS: Blood Urea Nitrogen 27 mg/dl (9-20); Carbon Dioxide 29 mmol/L (22-30); Chloride 94 mmol/L (98-107); Glucose 143 mg/dl (70-99); Potassium 4.6 mmol/L (3.5-5.1); Sodium 133 mmol/L (135-145); eGFR > 60.00
[2024-05-07] MEDS: PROTONIX 40 MG PO (08:26)
[2024-05-07] MEDS: LIDOCAINE 4% PATCH 1 PATCH TOPICAL (08:27)
[2024-05-07] MEDS: ELIQUIS 5 MG PO ×2 (08:27→20:06)
--- NOTE | 2024-05-07 09:58 | WOUNDNOTE ---
PATRICIA RN note: Patient admitted with weakness.
See H&P for complete history. Lives with .
PMH: Lung cancer with bone mets,ex smoker, diverticulitis, urgency, arthritis, hernia repair.
Wound Location and type/assessment: Patient admitted with: Incontinent associated skin damage to sacrum viki rectal area. Tiny open area at gluteal cleft pink base, surrounding skin denuded. Patient had leakage of stool during assessment. Patient
states he uses pull ups at home due to incontinence. Heels are blanchable, foams in use.
Appetite: Good patient states he is getting protein in diet.
Pressure redistribution devices in place: Asked nurse to have air overlay for patients bed when rm available. For now gave patient air cushion and placed under Sacrum when repositioned. Pillow under calves.
Plan: Barrier cream applied to denuded skin after cleaning, large silicone foam placed over sacrum to protect. Silicone foams placed on heels. Pressure ulcer prevention measures reviewed with patient.
Will confirm orders with hospitalist and updated nurse. Updated care plan and will follow as needed.
Note to case management of equipment requested for discharge: None.
[2024-05-07] MEDS: SIMBRINZA 1%-0.2% OPHTH SUSP 1 DROP RIGHT EYE ×2 (10:01→20:22)
[2024-05-07] MEDS: MS CONTIN (EXTENDED RELEASE) 30 MG PO ×2 (10:59→22:42)
--- NOTE | 2024-05-07 14:23 | W.PN.HOSP.TC ---
Addendum entered and electronically signed by Jared Burciaga MD 05/07/24 14:39:
Acute hypoxic respiratory failure baseline multifactorial due to lung carcinoma and likely developing aspiration pneumonia.
Patient noted with pulse ox down to 82%
Continue oxygen supplementation currently on 4 L nasal cannula.
Original Note:
Today's Communication/Plan
-
See plan
Assessment / Plan
Assessment / Plan
Impression:
Failure to thrive multifactorial pain
Intractable malignant pain.
Known small cell lung CAD.
Suspect aspiration syndrome with left lower lobe pneumonia.
Paroxysmal atrial fibrillation/flutter.
Anticoagulation with Eliquis.
Benign hypertension.
Dyslipidemia
BPH.
Cachexia.
Former alcoholic.
Former tobacco smoker.
Osteoarthritis.
Plan:
Failure to thrive multifactorial in patient with metastatic non-small cell lung carcinoma
Cachexia.
Severe malignant pain
Ambulatory dysfunction
Physical therapy evaluation per
Case management consultation for rehab placement.
Intractable malignant pain to
Controlled at rest.
Continue current regimen including morphine sulfate extended release 30 mg every 12 hours, oxycodone 10 mg p.o. every 4 hours as needed, Tylenol, Neurontin.
Non-small cell lung carcinoma at the right upper lung with metastatic disease to the bone
Status post XRT 2018
Former smoker.
Initiated on systemic therapy with Keytruda.
Currently off corticosteroids.
Continue Anoro elliptica.
Follow-up with radiation oncology and oncology for further treatment.
Suspect aspiration syndrome baseline chest x-ray with left lower lobe infiltrate.
Recent CT chest with bilateral/bibasilar atelectasis. Negative for pulmonary embolism.
Noted with rising white count
Repeat speech and swallow evaluation and VSE
Continue aspiration precautions per
Initiate antibiotic covering aspiration: Unasyn
Paroxysmal atrial fibrillation/flutter.
Rate controlled
Continue metoprolol
Continue Eliquis
Essential hypertension
Continue ramipril
Dyslipidemia on Crestor.
Anticipated Discharge: 24 - 48 hours
Subjective/Interval History
-
Date of Service: May 07, 2024
Objective Data
-
Labs:
Laboratory Results
05/07/24
05:24
WBC 13.0 H
Hgb 11.1 L
Hct 32.0 L
Plt Count 373
Sodium 133 L
Potassium 4.6
Chloride 94 L
Carbon Dioxide 29
BUN 27 H
Creatinine 0.7
Glucose 143 H
Calcium 9.0
Vital Signs:
Vital Signs
Temp Pulse Resp BP Pulse Ox
98.5 F 67 20 108/59 96
05/07/24 00:30 05/07/24 04:45 05/06/24 20:31 05/07/24 04:00 05/07/24 00:45
I&O
05/06/24 05/07/24 05/08/24
06:59 06:59 06:59
Output Total 300 / 300
Balance -300 / -300
Physical Exam
-
General: No Apparent Distress, Comfortable, Appears Chronically Ill and Other (Frail)
HEENT: Normocephalic, Atraumatic and Moist Mucous Membranes
Respiratory: Rales, Rhonchi and Non Labored Respirations; Negative Wheezes or Accessory Resp Muscle Use
Cardiac: Regular Rhythm and S1/S2; Negative Murmur, Rub or Gallop
GI: Soft, Nontender, Nondistended and Normal Bowel Sounds
Musculoskeletal: No Clubbing, No Cyanosis and No Edema
Skin: Warm and Dry; Negative Rash
Neuro: AO x 3, Nonfocal/Grossly Intact and Central Nerve's Intact
Psych: Calm
--- NOTE | 2024-05-07 14:35 | PTCARENOTE ---
pulse ox decreased to 82% on ra. 4l nc placed back on pt. pulse ox increased to 92%. Md traylor
--- NOTE | 2024-05-07 15:36 | CM ---
Chart reviewed. Introduced self and role to Adolfo. Patient signed [facility] and Commercial [employer] Obs letter. Patient lives in a [place] with his and son. He has 5 steps to enter into the home. He is independent. He drives and is semi-retired.
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 He owns a walker.He has an active PCP and Pharmacy.
[2024-05-07] MEDS: UNASYN IV ×2 (16:23→22:40)
[2024-05-07] MEDS: ALTACE PO (18:13)
[2024-05-07] MEDS: TOPROL XL PO (18:13)
[2024-05-07] MEDS: CRESTOR 20 MG PO (18:18)
[2024-05-07] MEDS: SPIRIVA RESPIMAT 2.5 MCG 2 PUFF INH (19:55)
[2024-05-07] MEDS: STRIVERDI RESPIMAT 2 PUFF INH (19:55)
[2024-05-07] MEDS: SENOKOT-S 1 TABLET PO (22:39)
[2024-05-07] MEDS: XALATAN OPHTHALMIC SOLUTION 1 DROP BOTH EYES (22:40)
--- NOTE | 2024-05-07 23:44 | PTCARENOTE ---
Pt a hold patient from ED arrived at aprox 1530. Pt slid over from stretcher to bed. Pt assessment done. # 25 CC placed per patient request. Pt vitals stable. at bedside. VSE to be done tomorrow. Instructed pt to ring for assistance.
--- NOTE | 2024-05-08 00:01 | PTCARENOTE ---
This RN assumed care of pt at 2300. Nursing assessment completed. Pt reports 3/10 pain to his left hip but denies the need for pain medications at this time. Will continue with current plan.
[2024-05-08] MEDS: UNASYN IV ×4 (04:01→21:41)
[2024-05-08] MEDS: TYLENOL 1000 MG PO ×2 (06:12→14:34)
[2024-05-08 07:20] VITALS: BP 116/54
[2024-05-08] MEDS: ELIQUIS 5 MG PO ×2 (08:00→20:28)
[2024-05-08] MEDS: SIMBRINZA 1%-0.2% OPHTH SUSP 1 DROP RIGHT EYE ×2 (08:00→20:05)
[2024-05-08] MEDS: LIDOCAINE 4% PATCH 1 PATCH TOPICAL (08:03)
[2024-05-08] MEDS: PROTONIX 40 MG PO (08:03)
[2024-05-08] MEDS: NEURONTIN 300 MG PO ×3 (08:03→21:40)
--- NOTE | 2024-05-08 08:25 | PTOTSP ---
Speech Language Pathology
Pt seen for clinical bedside swallow evaluation. Seen on day of discharge 05/06 with recommendations for VSE, but pt declined. Pt endorsed chronic globus sensation in throat with P.O. intake. Esophagram completed in January 2024 with findings of
dysmotility. Barium tablet also noted to stick in vallecula and report questioned need for speech evaluation.
This date, P.O. trials of regular solids and thin liquids via single cup sip provided. Adequate mastication, bolus formation, and A-P transit noted. Slight wet vocal quality noted with thin liquids.
Pt with currently likely developing aspiration PNA, elevated WBC, hx of residue in vallecula on esophagram, and intermittent signs of aspiration.
Recommend:
(1) VSE. This has been ordered, and pt is now agreeable
(2) Can continue regular solids/thin liquids until VSE completed
(3) Aspiration precautions: single sips, slow rate, sit upright
(4) Meds whole in puree
(5) INTERVENTIONAL PHYSICIAN to continue to follow
[2024-05-08 09:44] VITALS: BP 114/64; BP 121/74; PULSE 101; O2SAT 89
[2024-05-08 09:45] VITALS: BP 114/64; BP 121/74; PULSE 101; O2SAT 89
[2024-05-08] MEDS: MS CONTIN (EXTENDED RELEASE) 30 MG PO ×2 (09:51→21:40)
[2024-05-08] MEDS: LIDOCAINE 4% PATCH 2 PATCH TOPICAL (09:51)
--- NOTE | 2024-05-08 11:30 | PTOTSP ---
Speech Language Pathology
VIDEOFLUOROSCOPIC SWALLOWING EXAMINATION (VSE) completed. Overall, pt with mild pharyngeal dysphagia. No persistent laryngeal penetration or any aspiration noted. Pharyngeal residue noted, which was improved with liquid wash. Discussed option of
dysphagia tx for strengthening to reduce amount of pharyngeal residue, but this is not currently patient's priority understandably. Can consider as appropriate in the future.
Recommend:
(1) Regular solids/thin liquids
(2) Aspiration precautions: sit upright, slow rate, frequent sips of liquids during meals
(3) Meds as tolerated
(4) TOUR CONDUCTOR to sign off. Please reconsult as indicated
[2024-05-08] MEDS: TYLENOL PO (14:34)
--- NOTE | 2024-05-08 15:11 | W.PN.HOSP.TC ---
Today's Communication/Plan
-
IV antibiotics
Oxygen supplementation with attempt to wean
Pulmonology evaluation
Physical therapy assessment
Assessment / Plan
Assessment / Plan
Impression:
Failure to thrive multifactorial pain
Intractable malignant pain.
Known small cell lung CAD.
Acute hypoxic respiratory failure
Left lower lobe pneumonia
Paroxysmal atrial fibrillation/flutter.
Anticoagulation with Eliquis.
Benign hypertension.
Dyslipidemia
BPH.
Cachexia.
Former alcoholic.
Former tobacco smoker.
Osteoarthritis.
Plan:
Failure to thrive multifactorial in patient with metastatic non-small cell lung carcinoma
Cachexia.
Severe malignant pain
Ambulatory dysfunction
Physical therapy evaluation per
Case management consultation for rehab placement.
Intractable malignant pain to
Controlled at rest.
Continue current regimen including morphine sulfate extended release 30 mg every 12 hours, oxycodone 10 mg p.o. every 4 hours as needed, Tylenol, Neurontin.
Non-small cell lung carcinoma at the right upper lung with metastatic disease to the bone
Status post XRT 2018
Former smoker.
Initiated on systemic therapy with Keytruda.
Currently off corticosteroids.
Continue Anoro elliptica.
Follow-up with radiation oncology and oncology for further treatment.
Acute hypoxic respiratory failure.
Left lower lobe pneumonia suspected
Recent CT chest with bilateral/bibasilar atelectasis. Negative for pulmonary embolism. Findings consistent with progressive pulmonary metastatic process
Noted with rising white count? From steroids
Repeat speech and swallow evaluation including VSE negative for aspiration
Empiric treatment with IV antibiotics covering nosocomial and aspiration pathogens.
Recently initiated on Keytruda, although with no striking evidence of Keytruda induced pneumonitis at this point. Monitor closely. Would be low threshold for steroid trial if no improvement in 1 hypoxia.
Pulmonology evaluation
Paroxysmal atrial fibrillation/flutter.
Rate controlled
Continue metoprolol
Continue Eliquis
Essential hypertension
Continue ramipril
Dyslipidemia on Crestor.
Anticipated Discharge: > 48 hours
Subjective/Interval History
-
Date of Service: May 08, 2024
Objective Data
-
Vital Signs:
Vital Signs
Temp Pulse Resp BP Pulse Ox
98.4 F 79 20 116/54 97
05/08/24 07:20 05/08/24 07:20 05/08/24 07:20 05/08/24 07:20 05/08/24 08:00
I&O
05/07/24 05/08/24 05/09/24
06:59 06:59 06:59
Intake Total 960 / 960
Output Total 300 / 300 600 / 600
Balance -300 / -300 360 / 360
Physical Exam
-
General: No Apparent Distress, Comfortable, Appears Chronically Ill and Other (Frail)
HEENT: Normocephalic, Atraumatic and Moist Mucous Membranes
Respiratory: Rales, Rhonchi and Non Labored Respirations; Negative Wheezes or Accessory Resp Muscle Use
Cardiac: Regular Rhythm and S1/S2; Negative Murmur, Rub or Gallop
GI: Soft, Nontender, Nondistended and Normal Bowel Sounds
Musculoskeletal: No Clubbing, No Cyanosis and No Edema
Skin: Warm and Dry; Negative Rash
Neuro: AO x 3, Nonfocal/Grossly Intact and Central Nerve's Intact
Psych: Calm
--- NOTE | 2024-05-08 15:19 | CON.PUL ---
Consultation
Consultation Request
Date/Time Consultation Requested: 05/08/2024
Date/Time Consultation Performed: 05/08/2024
Requesting Provider: Dr. Burciaga
Performing Provider: Dr. Mickey Norman
Reason for Consultation: Hypoxemic respiratory insufficiency
Medical History
-
History of Present Illness:
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 He was discharged from the hospital less than 24 hours ago he was not able to walk at
home due to generalized pain and shortness of breath. During his prior discharge she declined to go to a prison facility. Patient feels very weak.
Patient requesting admission to rehab facility.
We were consulted on 05/08/2024 for evaluation of mild hypoxemia.
Past Medical History
Past Medical History: Other (See assessment and plan)
Social History
Tobacco: Former Smoker
Alcohol: None
Drug: None
Personal:
Family History
Family History: Reviewed & Not Pertinent
Allergies / Home Medications
Allergies
Allergy/AdvReac Type Severity Reaction Status Date / Time
adhesive Allergy SEE COMMENT Verified 05/06/24 20:30
Hayfever Allergy Sneezing, Uncoded 05/06/24 20:30
watery/itchy
eyes,
stuffy nose
Home Medications
�Medication �Instructions �Recorded �Confirmed �Last Taken �Type
ramipril 5 mg capsule 5 mg PO QPM Blood Pressure 08/15/18 05/06/24 05/06/24 History
rosuvastatin 20 mg tablet 20 mg PO QPM High Cholesterol 08/15/18 05/06/24 03/16/24 History
brinzolamide 1 %-brimonidine 0.2 % 1 drp RIGHT EYE BID Eye Condition 04/09/23 05/06/24 05/06/24 History
eye drops,suspension (Simbrinza)
qhabdqjzbqxr-fovctvsi-avixwq tablet 2 tab PO DAILY Supplement 04/09/23 05/06/24 03/17/24 History
travoprost 0.004 % eye drops 1 drp BOTH EYES HS Eye Condition 04/09/23 05/06/24 03/16/24 History
umeclidinium 62.5 mcg-vilanterol 1 inh inhalation R QPM 04/09/23 05/06/24 03/17/24 History
25 mcg/actuation powdr for Lung/Breathing Issues
inhalation (Anoro Ellipta)
apixaban 5 mg tablet (Eliquis) 5 mg PO BID #60 tabs 04/10/23 05/06/24 05/06/24 Rx
Fiber Gummies 4 tab PO DAILY Constipation 03/03/24 05/06/24 03/17/24 History
metoprolol succinate 25 mg 12.5 mg PO QPM Blood Pressure 03/03/24 05/06/24 05/05/24 History
tablet,extended release 24 hr
omeprazole 40 mg capsule,delayed 40 mg PO DAILY Gastrointestinal 03/03/24 05/06/24 03/17/24 History
release Issue
clobetasol 0.05 % topical cream 1 applic topical DAILYPRN PRN 05/02/24 05/06/24 Unknown History
itching
levalbuterol tartrate 45 2 inh inhalation R Q6HPRN PRN sob 05/02/24 05/07/24 Unknown History
mcg/actuation aerosol inhaler
ropinirole 0.25 mg tablet 0.25 mg PO HS Neurological 05/02/24 05/06/24 05/05/24 History
Condition
acetaminophen 500 mg tablet 1,000 mg (2 x 500 mg) PO Q8H 14 05/04/24 05/06/24 05/06/24 Rx
(Tylenol Extra Strength) days #84 tabs
bisacodyl 10 mg rectal suppository 10 mg ME [id number] PRN constipation 05/04/24 05/06/24 Unknown Rx
#50 ea
gabapentin 300 mg capsule 300 mg PO TID 30 days #90 caps 1005/06/24 05/06/24 Rx
oxycodone 5 mg tablet 10 mg (2 x 5 mg) PO Q4HPRN PRN 05/04/24 05/06/24 03/17/24 Rx
Pain #36 tabs
polyethylene glycol 3350 17 gram 17 g PO DAILYPRN PRN constipation 05/04/24 05/06/24 03/17/24 Rx
oral powder packet (HealthyLax) #100 ea
sennosides 8.6 mg-docusate sodium 1 tab PO BIDPRN PRN constipation 05/04/24 05/06/24 Unknown Rx
50 mg tablet #240 tabs
sennosides 8.6 mg-docusate sodium 1 tab-cap PO HS Constipation #60 05/04/24 05/06/24 05/05/24 Rx
50 mg tablet tabs
lidocaine 4 % topical patch 2 patch topical DAILY each hip 05/06/24 05/06/24 05/06/24 History
lidocaine 5 % topical patch 1 patch topical DAILY Pain 1 month 05/06/24 05/06/24 Unknown Rx
#30 ea
morphine 30 mg tablet,extended 30 mg PO Q12H pain 05/06/24 05/06/24 05/06/24 History
release
Review of Systems
-
History Source: Patient
All other systems: Negative unless noted
Vitals / Labs / Diagnostic Testing
Vital Signs
Temp Pulse Resp BP Pulse Ox
98.4 F 79 20 116/54 97
05/08/24 07:20 05/08/24 07:20 05/08/24 07:20 05/08/24 07:20 05/08/24 08:00
Lab Data
05/07/24 05:24
05/07/24 05:24
Diagnostic Testing:
Physical Exam
-
HEENT: Normocephalic
Cardiovascular: S1/S2
Respiratory: Wheeze (n), Rales (Left base) and Non-Labored Respirations
GI: Soft and Non Distended
Neurology: Awake and Alert
Skin: Warm
General: Comfortable
Assessment
-
78-year-old man with history of metastatic lung cancer. Recently admitted to the hospital with debilitation/pain. Recommended to go to rehab and he declined. Discharged home and returns back due to inability to stay at home. Feeling generalized
pain. Found to be mildly hypoxemic and now with low-grade fevers and leukocytosis. We were consulted for mild hypoxemia 05/08/2024.
Acute hypoxemic respiratory insufficiency intractable pain. Currently on 2 L which is new for him.
Chest x-ray possibly left lower lobe infiltrate.
Suspect pneumonia-possibly aspiration.
Likely due to metastatic disease
Stage IV lung cancer
Conditions present prior admission:
Lung cancer right upper lung lung lesion: Status post XRT in 2019. Now on Keytruda.
Initially diagnosed in 2019
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
ANORO
Atrial fibrillation
Dysphagia
Hypertension
Hyperlipidemia
BPH
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
Periodic limb movement disorder
Obstructive sleep apnea
Hernia repair
Bilateral cataract surgery
Former smoker
Assessment and plan:.
Mild hypoxemia: Possibly atelectasis on top of underlying COPD.
So far no evidence for Keytruda pulmonary toxicity.
Recent CT chest 05/02/2024: No evidence for pulmonary embolism. No significant acute abnormality on the chest. Interval progression of pulmonary and osseous metastatic disease.
There is right hemidiaphragm elevation. Chest x-ray
05/05/2024: Reviewed linear scarring of the right midlung. Mild airspace opacity in the left lung base. Moderate elevation of the right hemidiaphragm.
-
With new leukocytosis, mild low-grade fever, left base crackles, new left lower lobe infiltrate pneumonia is a possibility
Given debilitation and failure to thrive aspiration is a possibility.
Agree with antibiotics- Unasyn
Incentive spirometry
Avoid sedatives
Obtain cultures if possible
Follow fever curve and leukocytosis.
-
Not bronchospastic on exam continue inhalers
Okay to use nebulizers as needed
.
Will continue to follow
-
Follow-up with Dr. Boateng after discharge.
--- NOTE | 2024-05-08 15:38 | CM ---
Chart reviewed and patient switched to inpatient, IMM given to patient and signed, Per physical therapy recommendation is for skilled placement, rn case manager hospice met with patient and family and reviewed skilled options and patient has selected [facility] and [facility] referrals sent for skilled placement.
Plan; Skilled placement when stable, referrals sent to [facility] and [facility].
[2024-05-08 15:39] VITALS: BP 118/53
[2024-05-08] MEDS: CRESTOR 20 MG PO (16:29)
[2024-05-08] MEDS: ALTACE 5 MG PO (16:29)
[2024-05-08] MEDS: TOPROL XL 12.5 MG PO (16:29)
[2024-05-08] MEDS: SPIRIVA RESPIMAT 2.5 MCG 2 PUFF INH (20:47)
[2024-05-08] MEDS: STRIVERDI RESPIMAT 2 PUFF INH (20:47)
[2024-05-08] MEDS: SENOKOT-S 1 TABLET PO (21:40)
[2024-05-08] MEDS: REQUIP 0.25 MG PO (21:40)
[2024-05-08] MEDS: XALATAN OPHTHALMIC SOLUTION 1 DROP BOTH EYES (21:41)
[2024-05-08 23:20] VITALS: BP 116/52
[2024-05-09] MEDS: UNASYN IV ×4 (03:37→22:26)
[2024-05-09] MEDS: TYLENOL 1000 MG PO ×2 (05:24→13:32)
[2024-05-09] MEDS: ROXICODONE 10 MG PO (06:16)
[2024-05-09 08:00] VITALS: BP 97/56
[2024-05-09] MEDS: PROTONIX 40 MG PO (08:24)
[2024-05-09] MEDS: NEURONTIN 300 MG PO ×3 (08:24→22:27)
[2024-05-09] MEDS: ELIQUIS 5 MG PO ×2 (08:25→20:21)
[2024-05-09] MEDS: LIDOCAINE 4% PATCH 2 PATCH TOPICAL (08:26)
[2024-05-09] MEDS: SIMBRINZA 1%-0.2% OPHTH SUSP 1 DROP RIGHT EYE ×2 (08:28→20:22)
[2024-05-09] MEDS: MS CONTIN (EXTENDED RELEASE) 30 MG PO ×2 (10:27→22:27)
[2024-05-09 11:51] LABS: % Basophils 0.4 % (0-2); % Eosinophils 0.4 % (0-6); % Immature Granulocytes 1.2 % (0-0.5); % Lymphocytes 6.8 % (20.5-51.1); % Neutrophils 78.2 % (42.2-75.2); Absolute Basophils 0.1 10^3/uL (0-0.2); Absolute Eosinophils 0.1 10^3/uL (0-0.7); Absolute Immature Granulocytes 0.1 10^3/uL (0-0.05); Absolute Lymphocytes 0.8 10^3/uL (1.2-3.4); Absolute Monocytes 1.5 10^3/uL (0.1-0.6); Absolute Neutrophils 8.8 10^3/uL (1.4-6.5); Hematocrit 32.6 % (39.0-52.0); Hemoglobin 11.1 g/dL (13.0-18.0); Mean Corpuscular Hgb 30.3 pg (27.0-31.0); Mean Corpuscular Volume 89.1 fL (80.0-94.0); Mean Platelet Volume 9.6 fL (7.4-10.4); Nucleated Red Blood Cells % 0 % (-); Platelet Count 443 10^3/uL (130-400); Red Blood Cell Count 3.66 10^6/uL (4.70-6.10); Red Cell Dist. Width 15.4 % (11.5-14.5); White Blood Cell Count 11.3 10^3/uL (4.8-10.8)
[2024-05-09 12:14] LABS: Blood Urea Nitrogen 20 mg/dl (9-20); Calcium 9.2 mg/dl (8.4-10.2); Carbon Dioxide 27 mmol/L (22-30); Chloride 95 mmol/L (98-107); Estimated Creatinine Clearance 73 ml/min; Glucose 114 mg/dl (70-99); Potassium 4.7 mmol/L (3.5-5.1); Sodium 133 mmol/L (135-145); eGFR > 60.00
--- NOTE | 2024-05-09 12:30 | PTCARENOTE ---
05/09- Educated patient on risk of skin breakdown with external urinary devices as well as complications of immobility. Patient verbalized understanding but still insists on keeping condom cath. Were able to walk with hunched gait, shuffling L-foot
with assistance, with walker to bedside chair. Patient c/o pain upon standing and fully weight bearing on LLE but denies pain at rest. Gave printed [employer] Education on Passive ROM exercises in bed as well as light exercises.
[2024-05-09] MEDS: TYLENOL PO (13:33)
--- NOTE | 2024-05-09 15:08 | W.PN.HOSP.TC ---
Today's Communication/Plan
-
Continue antibiotics
Currently no indication for systemic corticosteroids.
Attempt to wean off oxygen
Physical therapy evaluation baseline eventually discharged to rehab early next week
Assessment / Plan
Assessment / Plan
Impression:
Failure to thrive multifactorial pain
Intractable malignant pain.
Known small cell lung CAD.
Acute hypoxic respiratory failure
Left lower lobe pneumonia
Paroxysmal atrial fibrillation/flutter.
Anticoagulation with Eliquis.
Benign hypertension.
Dyslipidemia
BPH.
Cachexia.
Former alcoholic.
Former tobacco smoker.
Osteoarthritis.
Plan:
Failure to thrive multifactorial in patient with metastatic non-small cell lung carcinoma
Cachexia.
Severe malignant pain
Ambulatory dysfunction
Physical therapy evaluation per
Case management consultation for rehab placement.
Intractable malignant pain to
Controlled at rest.
Continue current regimen including morphine sulfate extended release 30 mg every 12 hours, oxycodone 10 mg p.o. every 4 hours as needed, Tylenol, Neurontin.
Non-small cell lung carcinoma at the right upper lung with metastatic disease to the bone
Status post XRT 2018
Former smoker.
Initiated on systemic therapy with Keytruda.
Currently off corticosteroids.
Continue Anoro elliptica.
Follow-up with radiation oncology and oncology for further treatment.
Acute hypoxic respiratory failure.
Left lower lobe pneumonia suspected
Recent CT chest with bilateral/bibasilar atelectasis. Negative for pulmonary embolism. Findings consistent with progressive pulmonary metastatic process
WBC trending down
Repeat speech and swallow evaluation including VSE negative for aspiration
Empiric treatment with IV antibiotics covering nosocomial and aspiration pathogens.
Recently initiated on Keytruda, although with no striking evidence of Keytruda induced pneumonitis at this point. Monitor closely. Would be low threshold for steroid trial if no improvement in 1 hypoxia.
Pulmonology evaluation appreciated
Paroxysmal atrial fibrillation/flutter.
Rate controlled
Continue metoprolol
Continue Eliquis
Essential hypertension
Continue ramipril
Dyslipidemia on Crestor.
Anticipated Discharge: > 48 hours
Subjective/Interval History
-
Date of Service: May 09, 2024
Objective Data
-
Labs:
Laboratory Results
05/09/24
11:29
WBC 11.3 H
Hgb 11.1 L
Hct 32.6 L
Plt Count 443 H
Sodium 133 L
Potassium 4.7
Chloride 95 L
Carbon Dioxide 27
BUN 20
Creatinine 0.7
Glucose 114 H
Calcium 9.2
Vital Signs:
Vital Signs
Temp Pulse Resp BP Pulse Ox
99.4 F 71 18 97/56 99
05/09/24 08:00 05/09/24 08:00 05/09/24 08:00 05/09/24 08:00 05/09/24 08:30
I&O
05/08/24 05/09/24 05/10/24
06:59 06:59 06:59
Intake Total 1020 / 1020 1080 / 1080
Output Total 600 / 600 1850 / 1850
Balance 420 / 420 -770 / -770
Physical Exam
-
General: No Apparent Distress, Comfortable, Appears Chronically Ill and Other (Frail)
HEENT: Normocephalic, Atraumatic and Moist Mucous Membranes
Respiratory: Rales, Rhonchi and Non Labored Respirations; Negative Wheezes or Accessory Resp Muscle Use
Cardiac: Regular Rhythm and S1/S2; Negative Murmur, Rub or Gallop
GI: Soft, Nontender, Nondistended and Normal Bowel Sounds
Musculoskeletal: No Clubbing, No Cyanosis and No Edema
Skin: Warm and Dry; Negative Rash
Neuro: AO x 3, Nonfocal/Grossly Intact and Central Nerve's Intact
Psych: Calm
--- NOTE | 2024-05-09 15:46 | W.PN.PUL3 ---
Today's Communication / Plan
-
Continue current antibiotic-hopefully can be narrowed down to oral antibiotics in the next 24 to 48 hours if cultures negative.
Secretion clearance intervention
Increase activity as able
Wean off oxygen
Discharge planning ongoing-Will need rehab upon discharge.
Assessment
-
78-year-old man with history of metastatic lung cancer. Recently admitted to the hospital with debilitation/pain. Recommended to go to rehab and he declined. Discharged home and returns back due to inability to stay at home. Feeling generalized
pain. Found to be mildly hypoxemic and now with low-grade fevers and leukocytosis. We were consulted for mild hypoxemia 05/08/2024.
Acute hypoxemic respiratory insufficiency intractable pain. Currently on 2 L which is new for him.
Chest x-ray possibly left lower lobe infiltrate.
Suspect pneumonia-possibly aspiration.
Likely due to metastatic disease
Stage IV lung cancer
Conditions present prior admission:
Lung cancer right upper lung lung lesion: Status post XRT in 2019. Now on Keytruda.
Initially diagnosed in 2019
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
ANORO
Atrial fibrillation
Dysphagia
Hypertension
Hyperlipidemia
BPH
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
Periodic limb movement disorder
Obstructive sleep apnea
Hernia repair
Bilateral cataract surgery
Former smoker
Assessment and plan:.
Mild hypoxemia: Possibly atelectasis on top of underlying COPD.
So far no evidence for Keytruda pulmonary toxicity-based on imaging pattern
Recent CT chest 05/02/2024: No evidence for pulmonary embolism. No significant acute abnormality on the chest. Interval progression of pulmonary and osseous metastatic disease.
There is right hemidiaphragm elevation.
05/05/2024: Reviewed linear scarring of the right midlung. Mild airspace opacity in the left lung base. Moderate elevation of the right hemidiaphragm.
-
Oxygen supplementation at 2 L. Will attempt to wean off as able.
Maintain pulse ox over 90%
-
With new leukocytosis, mild low-grade fever, left base crackles, new left lower lobe infiltrate pneumonia is a possibility
Given debilitation and failure to thrive aspiration is a possibility. Repeat speech evaluation negative.
Agree with antibiotics- Unasyn
Incentive spirometry
Avoid sedatives
Obtain cultures if possible-pending
Low-grade fever 99 �F noted. Leukocytosis improving.
Patient does not appear toxic.
-
Not bronchospastic on exam continue inhalers
Continue nebulizers as needed.
.
Failure to thrive/debilitation: Multifactorial-metastatic lung cancer/malignant pain/cachexia/muscle mass loss.
Patient was not able to function at home 1 day after discharge return to the hospital due to inability to perform daily activities.
Physical therapy/Occupational Therapy
field project manager consulted for placement
-
Will continue to follow
-
Dr. Norman updated at the bedside 05/08/2024.
-
Follow-up with Dr. Boateng after discharge.
Subjective Data
-
Date of Service:
Date of Service: May 09, 2024
Chief Complaint: Pulmonary Follow Up (Abnormal chest x-ray/hypoxemia respiratory suppression)
Subjective:
Denies significant phlegm production with coughing
Continues to feel debilitated
Denies hemoptysis
Denies chills
Review of Systems
General: Fever (n)
Cardiopulmonary: Dyspnea (none at rest)
GI: Abdominal Pain (n) and Nausea (n)
Neuro: Headache (n)
Objective Data
Data Reviewed
Vital Signs / I&O / Oxygen:
Vital Signs
Temp Pulse Resp BP Pulse Ox
99.4 F 71 18 97/56 99
05/09/24 08:00 05/09/24 08:00 05/09/24 08:00 05/09/24 08:00 05/09/24 08:30
Intake and Output
05/08/24 05/09/24 05/10/24
06:59 06:59 06:59
Intake Total 1020 / 1020 1080 / 1080
Output Total 600 / 600 1850 / 1850
Balance 420 / 420 -770 / -770
SaO2 99
Nasal Cannula flow liters per 2
minute
Physical Exam
General: Comfortable
HEENT: Normocephalic
Cardiovascular: S1-S2
Respiratory: Crackles (Left base) and Non-Labored Respirations
GI: Soft and Non Distended
Neurology: Awake, Alert and No Motor Deficits
Skin: Warm
Labs/Micro/Reports
Lab Data
05/09/24 11:29
05/09/24 11:29
Microbiology
05/09/24 05:48 Sputum Gram Stain - Preliminary
[2024-05-09 16:00] VITALS: BP 101/53
--- NOTE | 2024-05-09 16:04 | CM ---
Chart reviewed and patient has been referred to [facility] and [facility], referrals sent to both facilities.
Plan; Skilled placement.
[2024-05-09] MEDS: TOPROL XL 12.5 MG PO (16:46)
[2024-05-09] MEDS: ALTACE 5 MG PO (16:46)
[2024-05-09] MEDS: CRESTOR 20 MG PO (16:48)
[2024-05-09] MEDS: SPIRIVA RESPIMAT 2.5 MCG 2 PUFF INH (20:09)
[2024-05-09] MEDS: STRIVERDI RESPIMAT 2 PUFF INH (20:09)
[2024-05-09] MEDS: XALATAN OPHTHALMIC SOLUTION 1 DROP BOTH EYES (22:26)
[2024-05-09] MEDS: SENOKOT-S 1 TABLET PO (22:27)
[2024-05-09] MEDS: REQUIP 0.25 MG PO (22:27)
[2024-05-09 23:26] VITALS: BP 104/57
[2024-05-10] MEDS: UNASYN IV ×4 (04:01→22:25)
[2024-05-10] MEDS: TYLENOL 1000 MG PO ×3 (05:30→22:26)
[2024-05-10 07:00] VITALS: BP 102/57
[2024-05-10] MEDS: PROTONIX 40 MG PO (09:14)
[2024-05-10] MEDS: SIMBRINZA 1%-0.2% OPHTH SUSP 1 DROP RIGHT EYE ×2 (09:15→20:18)
[2024-05-10] MEDS: MS CONTIN (EXTENDED RELEASE) 30 MG PO ×2 (09:15→22:26)
[2024-05-10] MEDS: ELIQUIS 5 MG PO ×2 (09:15→20:18)
[2024-05-10] MEDS: NEURONTIN 300 MG PO ×3 (09:15→22:26)
[2024-05-10] MEDS: LIDOCAINE 4% PATCH 2 PATCH TOPICAL (09:15)
--- NOTE | 2024-05-10 11:18 | W.PN.HOSP.TC ---
Today's Communication/Plan
-
Continue with IV Unasyn
Trend CBC and temperature curve
Assessment / Plan
Assessment / Plan
#Acute hypoxemic respiratory insufficiency
#Left lower lobe pneumonia
-X-ray before discharge on 05/05 showed atelectasis versus pneumonia
-Was on stable minimal O2 at that time, no fevers or leukocytosis
-Return to ED after inability to get into his home (refused SNF)
-Developed leukocytosis while here on second admission
-Currently on IV Unasyn for antimicrobial coverage
-Otherwise stable, on 2 L with SpO2 95%; WBC downtrending
Plan
-Continue with IV Unasyn for now
-Plan for Augmentin at discharge to complete 7-day course
-Continue with bronchodilators
-Continue to trend temperature curve and CBC
-Wean oxygen for SpO2 goal >90%
#Intractable pain
#Acute on chronic neck and right shoulder pain
#Failure to thrive
-Imaging here showed interval increase in scattered lytic osseous metastases. No pathologic fractures
-Was trialed on a course of steroids pill was not beneficial, discontinued
-Currently on gabapentin 300 mg, Tylenol 1 g TID
-STRAWHAT SIZER Percocet 10 mg increased to Q4PRN
-Patient states lidocaine patches helped significantly
-Currently on bowel regimen
#Stage IV non-small cell lung cancer
#25-oemm-nagc smoking history
#COPD/emphysema
-Right upper lung lesion, s/p XRT 2018; now on Keytruda
-Currently on Anora Ellipta supportively for bronchodilation
-Imaging here with metastases to bone
-Follows with radiation oncology
#AF/AFL
-Home medications include metoprolol succinate and Eliquis
-No history of ablations known; does have history of AVELINO cardioversion in 03/2023
-Heart rate currently WNL and regular
#Hypertension
-Home medications include metoprolol and ramipril
-No known history of hypertensive systemic disease
-BP currently well-controlled here
#HLD
-Home medications include Crestor, no known ASCVD history
DVT prophylaxis: Home Eliquis
Diet: Regular
CODE STATUS: DNR
Anticipated Discharge: 24 - 48 hours
Subjective/Interval History
-
Date of Service: May 10, 2024
Seen and examined at the bedside. No acute events reported overnight. AFVSS this morning on 2 L oxygen
White cell count downtrending on IV Unasyn.
Denies any acute complaints including dyspnea, chest pain, fevers or chills, GI upset, urinary issues, bleeding or bruising, paresthesias or weakness.
Objective Data
-
Vital Signs:
Vital Signs
Temp Pulse Resp BP Pulse Ox
99.4 F 67 18 102/57 94
05/10/24 07:00 05/10/24 07:00 05/10/24 07:00 05/10/24 07:00 05/10/24 07:00
I&O
05/09/24 05/10/24 05/11/24
06:59 06:59 06:59
Intake Total 1080 / 1080 840 / 840
Output Total 1850 / 1850 1025 / 1025
Balance -770 / -770 -185 / -185
Review of Systems
-
History Source: Patient
All other systems: Reviewed and negative
Physical Exam
-
General: No Apparent Distress, Comfortable and Appears Chronically Ill
HEENT: Normocephalic, Atraumatic and Moist Mucous Membranes
Respiratory: Clear to Auscultation and Non Labored Respirations; Negative Wheezes, Rales, Rhonchi or Accessory Resp Muscle Use
Cardiac: Regular Rhythm and S1/S2; Negative Murmur, Rub or Gallop
GI: Soft, Nontender, Nondistended and Normal Bowel Sounds
Musculoskeletal: No Clubbing, No Cyanosis, No Edema and Other (Tenderness to left hip)
Skin: Warm, Dry and Normal Turgor; Negative Rash
Neuro: AO x 3, Nonfocal/Grossly Intact and Central Nerve's Intact
Psych: Calm
Data Reviewed
-
Labs: Labs Reviewed by me and Discussed with Patient
--- NOTE | 2024-05-10 13:35 | W.PN.PUL.V3 ---
Today's Communication / Plan
-
Wean oxygen
Incentive spirometry
Antibiotics
Analgesia per primary service
Physical therapy
Assessment
-
78-year-old man with history of metastatic lung cancer. Recently admitted to the hospital with debilitation/pain. Recommended to go to rehab and he declined. Discharged home and returns back due to inability to stay at home. Feeling generalized
pain. Found to be mildly hypoxemic and now with low-grade fevers and leukocytosis. We were consulted for mild hypoxemia 05/08/2024.
Acute hypoxemic respiratory insufficiency intractable pain. Currently on 2 L which is new for him.
Chest x-ray possibly left lower lobe infiltrate.
Suspect pneumonia-possibly aspiration.
Likely due to metastatic disease
Stage IV lung cancer
Conditions present prior admission:
Lung cancer right upper lung lung lesion: Status post XRT in 2019. Now on Keytruda.
Initially diagnosed in 2019
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
ANORO
Atrial fibrillation
Dysphagia
Hypertension
Hyperlipidemia
BPH
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
Periodic limb movement disorder
Obstructive sleep apnea
Hernia repair
Bilateral cataract surgery
Former smoker
Plan.
Respiratory status slowly improving-suspect mild atelectasis on top of underlying COPD
Wean supplemental oxygen
Assess discharge supplemental oxygen needs
Aspiration precautions
Nebulizers if needed-currently not bronchospastic
CT chest 05/02/2024-no PE, interval progression of pulmonary and osseous mets
Chest x-ray 05/05/2024 with possible basilar atelectasis
Check cultures
Empiric antibiotics
Convert to oral antibiotics-finite course
Monitor leukocytosis and temperature curve
Follow-up chest x-ray
Failure to thrive/debilitation: Multifactorial-metastatic lung cancer/malignant pain/cachexia/muscle mass loss.
Patient was not able to function at home 1 day after discharge return to the hospital due to inability to perform daily activities.
Physical therapy/Occupational Therapy
virtual classroom manager consulted for placement
Follow-up with Dr. Boateng after discharge
.
Subjective Data
-
Date of Service:
Date of Service: May 10, 2024
Chief Complaint: Pulmonary Follow Up (Abnormal chest x-ray/hypoxemia respiratory suppression) and Dyspnea Follow Up
Subjective:
No complaints of worsening shortness of breath, no chest pain, productive cough or abdominal pain
Review of Systems
General: Other (Per HPI)
Objective Data
Data Reviewed
Vital Signs / I&O:
Vital Signs
Temp Pulse Resp BP Pulse Ox
99.4 F 67 18 102/57 94
05/10/24 07:00 05/10/24 07:00 05/10/24 07:00 05/10/24 07:00 05/10/24 07:00
Intake and Output
05/09/24 05/10/24 05/11/24
06:59 06:59 06:59
Intake Total 1080 / 1080 840 / 840
Output Total 1850 / 1850 1025 / 1025
Balance -770 / -770 -185 / -185
SaO2: 94
Nasal Cannula flow liters per minute: 2
Physical Exam
General: Respiratory Distress (n) and Comfortable
HEENT: Normocephalic
Cardiovascular: Regular Rhythm
Respiratory: Wheeze (n), Crackles (Left base) and Non-Labored Respirations
GI: Soft and Non Distended
Neurology: Awake, Alert and No Motor Deficits
Skin: Warm, Good Color, Cyanosis (n) and Jaundice (n)
Labs/Micro/Reports
Lab Data
05/09/24 11:29
05/09/24 11:29
Microbiology
05/09/24 05:48 Sputum Respiratory Culture - Preliminary
Usual Respiratory Karma
05/09/24 05:48 Sputum Gram Stain - Preliminary
[2024-05-10 15:00] VITALS: BP 103/53
[2024-05-10] MEDS: ALTACE PO (16:58)
[2024-05-10] MEDS: TOPROL XL PO (17:06)
[2024-05-10] MEDS: CRESTOR 20 MG PO (17:26)
[2024-05-10] MEDS: SPIRIVA RESPIMAT 2.5 MCG 2 PUFF INH (19:21)
[2024-05-10] MEDS: STRIVERDI RESPIMAT 2 PUFF INH (19:22)
[2024-05-10] MEDS: REQUIP 0.25 MG PO (22:26)
[2024-05-10] MEDS: SENOKOT-S 1 TABLET PO (22:26)
[2024-05-10] MEDS: XALATAN OPHTHALMIC SOLUTION 1 DROP BOTH EYES (22:32)
[2024-05-10 23:00] VITALS: BP 128/58
[2024-05-11] MEDS: UNASYN IV (04:12)
[2024-05-11] MEDS: TYLENOL 1000 MG PO ×3 (05:08→21:04)
[2024-05-11 07:00] VITALS: BP 94/52
[2024-05-11 07:06] LABS: % Basophils 0.7 % (0-2); % Eosinophils 2.5 % (0-6); % Immature Granulocytes 1.2 % (0-0.5); % Lymphocytes 7.5 % (20.5-51.1); % Monocytes 12.1 % (1.7-9.3); Absolute Basophils 0.1 10^3/uL (0-0.2); Absolute Eosinophils 0.2 10^3/uL (0-0.7); Absolute Immature Granulocytes 0.1 10^3/uL (0-0.05); Absolute Lymphocytes 0.7 10^3/uL (1.2-3.4); Absolute Monocytes 1.1 10^3/uL (0.1-0.6); Absolute Neutrophils 6.6 10^3/uL (1.4-6.5); Hematocrit 30.3 % (39.0-52.0); Mean Corpuscular Hgb 29.7 pg (27.0-31.0); Mean Corpuscular Volume 89.9 fL (80.0-94.0); Mean Platelet Volume 9.6 fL (7.4-10.4); Nucleated Red Blood Cells % 0 % (-); Platelet Count 408 10^3/uL (130-400); Red Blood Cell Count 3.37 10^6/uL (4.70-6.10); Red Cell Dist. Width 15.3 % (11.5-14.5); White Blood Cell Count 8.7 10^3/uL (4.8-10.8)
[2024-05-11 07:28] LABS: Blood Urea Nitrogen 17 mg/dl (9-20); Calcium 8.7 mg/dl (8.4-10.2); Carbon Dioxide 27 mmol/L (22-30); Chloride 97 mmol/L (98-107); Estimated Creatinine Clearance 85 ml/min; Glucose 117 mg/dl (70-99); Potassium 4.5 mmol/L (3.5-5.1); Sodium 134 mmol/L (135-145); eGFR > 60.00
[2024-05-11] MEDS: PROTONIX 40 MG PO (07:36)
[2024-05-11] MEDS: ELIQUIS 5 MG PO ×2 (07:36→21:04)
[2024-05-11] MEDS: NEURONTIN 300 MG PO ×3 (07:36→21:04)
[2024-05-11] MEDS: SIMBRINZA 1%-0.2% OPHTH SUSP 1 DROP RIGHT EYE ×2 (07:36→21:05)
[2024-05-11] MEDS: LIDOCAINE 4% PATCH 2 PATCH TOPICAL (07:37)
--- NOTE | 2024-05-11 09:51 | W.PN.HOSP.TC ---
Today's Communication/Plan
-
Transition to oral Augmentin
Discharge to SNF tomorrow
Assessment / Plan
Assessment / Plan
#Acute hypoxemic respiratory insufficiency
#Left lower lobe pneumonia
-X-ray before discharge on 05/05 showed atelectasis versus pneumonia
-Was on stable minimal O2 at that time, no fevers or leukocytosis
-Return to ED after inability to get into his home (refused SNF)
-Developed leukocytosis while here on second admission
-Was started on IV Unasyn empirically for HAP/aspiration pneumonia
-Otherwise stable, on 2 L with SpO2 95%; WBC downtrending
Plan
-Transition from IV Unasyn to oral Augmentin to complete 7-days
-Continue with bronchodilators
-Continue to trend temperature curve and CBC
-Wean oxygen for SpO2 goal >90%
#Intractable pain
#Acute on chronic neck and right shoulder pain
#Failure to thrive
-Imaging here showed interval increase in scattered lytic osseous metastases. No pathologic fractures
-Was trialed on a course of steroids pill was not beneficial, discontinued
-Currently on gabapentin 300 mg, Tylenol 1 g TID
-BROKE MAN Percocet 10 mg increased to Q4PRN
-Patient states lidocaine patches helped significantly
-Currently on bowel regimen
#Stage IV non-small cell lung cancer
#[id number] smoking history
#COPD/emphysema
-Right upper lung lesion, s/p XRT 2019; now on Keytruda
-Currently on Anora Ellipta supportively for bronchodilation
-Imaging here with metastases to bone
-Follows with radiation oncology
#AF/AFL
-Home medications include metoprolol succinate and Eliquis
-No history of ablations known; does have history of AVELINO cardioversion in 03/2023
-Heart rate currently WNL and regular
#Hypertension
-Home medications include metoprolol and ramipril
-No known history of hypertensive systemic disease
-BP currently well-controlled here
#HLD
-Home medications include Crestor, no known ASCVD history
DVT prophylaxis: Home Eliquis
Diet: Regular
CODE STATUS: DNR
Anticipated Discharge: Within 24 hours
Subjective/Interval History
-
Date of Service: May 11, 2024
Seen and examined at the bedside. No acute events reported overnight. AFVSS on 2 L oxygen. SpO2 99%.
He denies any acute complaints including fevers or chills, dyspnea, chest pain, GI upset, urinary issues, bleeding or bruising, paresthesias or weakness
Pending SNF placement 05/12
Objective Data
-
Labs:
Laboratory Results
05/11/24
06:40
WBC 8.7
Hgb 10.0 L
Hct 30.3 L
Plt Count 408 H
Sodium 134 L
Potassium 4.5
Chloride 97 L
Carbon Dioxide 27
BUN 17
Creatinine 0.6 L
Glucose 117 H
Calcium 8.7
Vital Signs:
Vital Signs
Temp Pulse Resp BP Pulse Ox
98.1 F 66 18 94/52 96
05/11/24 07:00 05/11/24 07:00 05/11/24 07:00 05/11/24 07:00 05/11/24 07:00
I&O
05/10/24 05/11/24 05/12/24
06:59 06:59 06:59
Intake Total 840 / 840 1740 / 1740
Output Total 1025 / 1025 1150 / 1150
Balance -185 / -185 590 / 590
Review of Systems
-
History Source: Patient
All other systems: Reviewed and negative
Physical Exam
-
General: No Apparent Distress, Comfortable, Appears Chronically Ill and Other (Frail-appearing)
HEENT: Normocephalic, Atraumatic and Moist Mucous Membranes
Respiratory: Clear to Auscultation and Non Labored Respirations; Negative Wheezes, Rales or Rhonchi
Cardiac: Regular Rhythm and S1/S2; Negative Murmur, Rub or Gallop
GI: Soft, Nontender, Nondistended and Normal Bowel Sounds
Musculoskeletal: No Clubbing, No Cyanosis and No Edema
Skin: Warm and Dry; Negative Rash
Neuro: AO x 3, Nonfocal/Grossly Intact and Central Nerve's Intact
Psych: Calm
Data Reviewed
-
Labs: Labs Reviewed by me and Discussed with Patient
[2024-05-11] MEDS: MS CONTIN (EXTENDED RELEASE) 30 MG PO ×2 (10:19→21:04)
[2024-05-11] MEDS: AUGMENTIN 875 MG/125 MG 1 TABLET PO ×2 (10:19→21:04)
--- NOTE | 2024-05-11 12:20 | W.PN.PUL.V3 ---
Today's Communication / Plan
-
Wean oxygen
Increase activity
Physical therapy/Occupational Therapy
Antibiotics
SNF rehab
Assessment
-
78-year-old man with history of metastatic lung cancer. Recently admitted to the hospital with debilitation/pain. Recommended to go to rehab and he declined. Discharged home and returns back due to inability to stay at home. Feeling generalized
pain. Found to be mildly hypoxemic and now with low-grade fevers and leukocytosis. We were consulted for mild hypoxemia 05/08/2024.
Acute hypoxemic respiratory insufficiency intractable pain. Currently on 2 L which is new for him.
Chest x-ray possibly left lower lobe infiltrate.
Suspect pneumonia-possibly aspiration.
Likely due to metastatic disease
Stage IV lung cancer
Conditions present prior admission:
Lung cancer right upper lung lung lesion: Status post XRT in 2019. Now on Keytruda.
Initially diagnosed in 2019
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
ANORO
Atrial fibrillation
Dysphagia
Hypertension
Hyperlipidemia
BPH
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
Periodic limb movement disorder
Obstructive sleep apnea
Hernia repair
Bilateral cataract surgery
Former smoker
Plan.
Pulmonary status slowly improving-suspect mild atelectasis on top of underlying COPD
Wean supplemental oxygen-continue weaning
Assess discharge supplemental oxygen needs
Aspiration precautions
Nebulizers if needed-currently not bronchospastic
CT chest 05/02/2024-no PE, interval progression of pulmonary and osseous mets
Chest x-ray 05/05/2024 with possible basilar atelectasis
Cultures reviewed
Empiric antibiotics-will be transition to oral Augmentin-finite course
Monitor leukocytosis and temperature curve
Follow-up chest x-ray
Failure to thrive/debilitation: Multifactorial-metastatic lung cancer/malignant pain/cachexia/muscle mass loss.
Patient was not able to function at home 1 day after discharge return to the hospital due to inability to perform daily activities.
Physical therapy/Occupational Therapy
accounting manager cpa consulted for placement
Stable for transfer to SNF-likely 05/12/2024
Follow-up with Dr. Boateng after discharge
.
Subjective Data
-
Date of Service:
Date of Service: May 11, 2024
Chief Complaint: Pulmonary Follow Up (Abnormal chest x-ray/hypoxemia respiratory suppression) and Dyspnea Follow Up
Subjective:
Denies any significant shortness of breath, chest pain, chest congestion, productive cough or abdominal pain
Review of Systems
General: Other (Per HPI)
Objective Data
Data Reviewed
Vital Signs / I&O:
Vital Signs
Temp Pulse Resp BP Pulse Ox
98.1 F 66 18 94/52 96
05/11/24 07:00 05/11/24 07:00 05/11/24 07:00 05/11/24 07:00 05/11/24 07:00
Intake and Output
05/10/24 05/11/24 05/12/24
06:59 06:59 06:59
Intake Total 840 / 840 1740 / 1740
Output Total 1025 / 1025 1150 / 1150
Balance -185 / -185 590 / 590
SaO2: 96
Nasal Cannula flow liters per minute: 2
Physical Exam
General: Respiratory Distress (n) and Comfortable
HEENT: Normocephalic
Cardiovascular: Regular Rhythm
Respiratory: Wheeze (n), Crackles (Left base) and Non-Labored Respirations
GI: Soft and Non Distended
Neurology: Awake, Alert and No Motor Deficits
Skin: Warm, Good Color, Cyanosis (n) and Jaundice (n)
Labs/Micro/Reports
Lab Data
05/11/24 06:40
05/11/24 06:40
Microbiology
05/09/24 05:48 Sputum Respiratory Culture - Final
Usual Respiratory Karma
05/09/24 05:48 Sputum Gram Stain - Final
[2024-05-11 14:44] VITALS: BP 108/64; PULSE 101; O2SAT 92
[2024-05-11 15:00] VITALS: BP 125/58
[2024-05-11] MEDS: ALTACE 5 MG PO (17:23)
[2024-05-11] MEDS: TOPROL XL 12.5 MG PO (17:23)
[2024-05-11] MEDS: CRESTOR 20 MG PO (17:23)
[2024-05-11] MEDS: SPIRIVA RESPIMAT 2.5 MCG 2 PUFF INH (19:28)
[2024-05-11] MEDS: STRIVERDI RESPIMAT 2 PUFF INH (19:28)
[2024-05-11] MEDS: SENOKOT-S 1 TABLET PO (21:04)
[2024-05-11] MEDS: REQUIP 0.25 MG PO (21:04)
[2024-05-11] MEDS: XALATAN OPHTHALMIC SOLUTION 1 DROP BOTH EYES (21:10)
[2024-05-11 23:55] VITALS: BP 114/55
[2024-05-12] MEDS: TYLENOL 1000 MG PO ×3 (06:00→21:23)
[2024-05-12 07:27] VITALS: BP 112/57
--- NOTE | 2024-05-12 08:34 | PN.CDI ---
CDI
- -
CDI:
Physician Documentation Request
Admit Date: 05/08/24 15:11
Dear Doctor Gualberto,
Please review the following and provide your response in the progress notes.
Clinical Indicators:
- RN skin assessments indicates stage 2 sacrum pressure injury, POA
Physician documentation of the type and location of wounds is required for compliant documentation. Based on the above clinical findings and your assessment, please provide the following in your progress note:
1. Location of the ulcer/wound, including laterality.
2. Type (etiology) of ulcer/wound:
- Diabetic ulcer
- Arterial (ischemic) ulcer
- Traumatic wound
- Venous stasis ulcer
- Pressure (decubitus) ulcer
- Non-healing surgical wound
- Other
- Unable to determine
Use of terms such as suspected, likely, concern for, or probable (associated with a specific diagnosis that is being evaluated, monitored, or treated as if it exists) are acceptable and can be coded in the inpatient setting, when documented at the
time of discharge.
Thank you,
Grover Myers RN
CDI Specialist
Please use your independent medical judgment in providing your response.
*Source: National Pressure Ulcer Advisory Panel (NPUAP)
[2024-05-12] MEDS: AUGMENTIN 875 MG/125 MG 1 TABLET PO ×2 (10:21→21:23)
[2024-05-12] MEDS: PROTONIX 40 MG PO (10:22)
[2024-05-12] MEDS: ELIQUIS 5 MG PO ×2 (10:22→21:23)
[2024-05-12] MEDS: MS CONTIN (EXTENDED RELEASE) 30 MG PO ×2 (10:22→21:23)
[2024-05-12] MEDS: NEURONTIN 300 MG PO ×3 (10:22→21:23)
[2024-05-12] MEDS: LIDOCAINE 4% PATCH 2 PATCH TOPICAL (10:22)
[2024-05-12] MEDS: SIMBRINZA 1%-0.2% OPHTH SUSP 1 DROP RIGHT EYE ×2 (10:23→21:23)
--- NOTE | 2024-05-12 13:18 | W.PN.PUL3 ---
Today's Communication / Plan
-
Continue antibiotics, to be completed 05/13
Pain control
Follow-up imaging can be done as outpatient
Disposition efforts
We will sign off. Please call with questions
Assessment
-
78-year-old man with history of metastatic lung cancer. Recently admitted to the hospital with debilitation/pain. Recommended to go to rehab and he declined. Discharged home and returns back due to inability to stay at home. Feeling generalized
pain. Found to be mildly hypoxemic and now with low-grade fevers and leukocytosis. We were consulted for mild hypoxemia 05/08/2024.
Acute hypoxemic respiratory insufficiency intractable pain. Currently on 2 L which is new for him.
Chest x-ray possibly left lower lobe infiltrate.
Suspect pneumonia-possibly aspiration.
Likely due to metastatic disease
Stage IV lung cancer
Conditions present prior admission:
Lung cancer right upper lung lung lesion: Status post XRT in 2019. Now on Keytruda.
Initially diagnosed in 2019
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
ANORO
Atrial fibrillation
Dysphagia
Hypertension
Hyperlipidemia
BPH
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
Periodic limb movement disorder
Obstructive sleep apnea
Hernia repair
Bilateral cataract surgery
Former smoker
Plan/recommendations
At this time, he appears to be at baseline from a pulmonary standpoint
Patient not requiring oxygen
Assess home oxygen needs as able
Reviewed recent images, chest x-ray and CT chest over the past [address] chest 05/02/2024-no PE, interval progression of pulmonary and osseous mets
Chest x-ray 05/05/2024 with possible basilar atelectasis
Primary issue is pain control
Cultures reviewed
Empiric antibiotics-will be transition to oral Augmentin-finite course, complete 7 days total, last day 05/13
Monitor leukocytosis and temperature curve
Follow-up chest x-ray as indicated, this can be done as outpatient
Failure to thrive/debilitation: Multifactorial-metastatic lung cancer/malignant pain/cachexia/muscle mass loss.
Patient was not able to function at home 1 day after discharge return to the hospital due to inability to perform daily activities.
Physical therapy/Occupational Therapy
manager credit risk consulted for placement
Stable for transfer to SNF-likely 05/12/2024
Follow-up with Dr. Boateng after discharge
We will sign off. Please call with questions
.
Subjective Data
-
Date of Service:
Date of Service: May 12, 2024
Chief Complaint: Pulmonary Follow Up (Abnormal chest x-ray/hypoxemia respiratory suppression) and Dyspnea Follow Up
Subjective:
Patient appears to be comfortable, sitting in chair. Has mild dry cough but denies hemoptysis, chest pain, nausea, abdominal pain. Describes left hip pain with ambulation. Otherwise comfortable on room air
Objective Data
Data Reviewed
Vital Signs / I&O / Oxygen:
Vital Signs
Temp Pulse Resp BP Pulse Ox
98.3 F 67 20 112/57 92
05/12/24 07:27 05/12/24 07:27 05/12/24 07:27 05/12/24 07:27 05/12/24 07:27
Intake and Output
05/11/24 05/12/24 05/13/24
06:59 06:59 06:59
Intake Total 1740 / 1740 1260 / 1260
Output Total 1150 / 1150 1300 / 1300
Balance 590 / 590 -40 / -40
SaO2 92
Nasal Cannula flow liters per 1
minute
Physical Exam
General: Comfortable (Mildly cachectic)
HEENT: Normocephalic and Anicteric
Cardiovascular: Regular Rhythm, Murmur (n), Rub (n) and Peripheral Edema (n)
Respiratory: Wheeze (n), Crackles (Left base) and Non-Labored Respirations
GI: Soft, Non Distended and Normal Bowel Sounds
Neurology: Awake, Alert and No Motor Deficits
Skin: Warm, Good Color, Cyanosis (n) and Jaundice (n)
Labs/Micro/Reports
Lab Data
05/11/24 06:40
05/11/24 06:40
Microbiology
05/09/24 05:48 Sputum Respiratory Culture - Final
Usual Respiratory Karma
05/09/24 05:48 Sputum Gram Stain - Final
[2024-05-12] MEDS: ROXICODONE 10 MG PO (15:22)
[2024-05-12 15:27] VITALS: BP 128/56
--- NOTE | 2024-05-12 15:47 | W.PN.HOSP.TC ---
Today's Communication/Plan
-
Stable respiratory status.
Transition to oral antibiotics
Continue current analgesic regiment
Physical therapy
[facility]
Assessment / Plan
Assessment / Plan
#Acute hypoxemic respiratory insufficiency
#Left lower lobe pneumonia
-X-ray before discharge on 05/05 showed atelectasis versus pneumonia
-Was on stable minimal O2 at that time, no fevers or leukocytosis
-Return to ED after inability to get into his home (refused SNF)
-Developed leukocytosis while here on second admission
-Was started on IV Unasyn empirically for HAP/aspiration pneumonia
-Otherwise stable, on 2 L with SpO2 95%; WBC downtrending
Plan
-Transition from IV Unasyn to oral Augmentin to complete 7-days
-Continue with bronchodilators
-Continue to trend temperature curve and CBC
-Wean oxygen for SpO2 goal >90%
#Intractable pain
#Acute on chronic neck and right shoulder pain
#Failure to thrive
-Imaging here showed interval increase in scattered lytic osseous metastases. No pathologic fractures
-Was trialed on a course of steroids pill was not beneficial, discontinued
-Currently on gabapentin 300 mg, Tylenol 1 g TID
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
-Patient states lidocaine patches helped significantly
-Currently on bowel regimen
#Stage IV non-small cell lung cancer
#[id number] smoking history
#COPD/emphysema
-Right upper lung lesion, s/p XRT 2019; now on Keytruda
-Currently on Anora Ellipta supportively for bronchodilation
-Imaging here with metastases to bone
-Follows with radiation oncology
#AF/AFL
-Home medications include metoprolol succinate and Eliquis
-No history of ablations known; does have history of AVELINO cardioversion in 03/2023
-Heart rate currently WNL and regular
#Hypertension
-Home medications include metoprolol and ramipril
-No known history of hypertensive systemic disease
-BP currently well-controlled here
#HLD
-Home medications include Crestor, no known ASCVD history
DVT prophylaxis: Home Eliquis
Diet: Regular
CODE STATUS: DNR
Anticipated Discharge: Within 24 hours
Subjective/Interval History
-
Date of Service: May 12, 2024
Objective Data
-
Vital Signs:
Vital Signs
Temp Pulse Resp BP Pulse Ox
98.3 F 73 18 128/56 93
05/12/24 15:27 05/12/24 15:27 05/12/24 15:27 05/12/24 15:27 05/12/24 15:27
I&O
05/11/24 05/12/24 05/13/24
06:59 06:59 06:59
Intake Total 1740 / 1740 1260 / 1260
Output Total 1150 / 1150 1300 / 1300
Balance 590 / 590 -40 / -40
Physical Exam
-
General: No Apparent Distress, Comfortable, Appears Chronically Ill and Other (Frail-appearing)
HEENT: Normocephalic, Atraumatic and Moist Mucous Membranes
Respiratory: Clear to Auscultation and Non Labored Respirations; Negative Wheezes, Rales or Rhonchi
Cardiac: Regular Rhythm and S1/S2; Negative Murmur, Rub or Gallop
GI: Soft, Nontender, Nondistended and Normal Bowel Sounds
Musculoskeletal: No Clubbing, No Cyanosis and No Edema
Skin: Warm and Dry; Negative Rash
Neuro: AO x 3, Nonfocal/Grossly Intact and Central Nerve's Intact
Psych: Calm
--- NOTE | 2024-05-12 16:41 | CM ---
Per admissions at [facility] they can accept patient tomorrow and bed is available, patient and family made aware.
Plan; [facility] for skilled placement.
[2024-05-12] MEDS: TOPROL XL 12.5 MG PO (18:17)
[2024-05-12] MEDS: ALTACE 5 MG PO (18:17)
[2024-05-12] MEDS: CRESTOR 20 MG PO (18:18)
[2024-05-12] MEDS: STRIVERDI RESPIMAT 2 PUFF INH (19:46)
[2024-05-12] MEDS: SPIRIVA RESPIMAT 2.5 MCG 2 PUFF INH (19:46)
[2024-05-12] MEDS: SENOKOT-S 1 TABLET PO (21:23)
[2024-05-12] MEDS: REQUIP 0.25 MG PO (21:23)
[2024-05-12] MEDS: XALATAN OPHTHALMIC SOLUTION 1 DROP BOTH EYES (21:35)
[2024-05-12 23:30] VITALS: BP 112/60
[2024-05-13] MEDS: TYLENOL 1000 MG PO ×2 (05:14→14:10)
[2024-05-13 07:26] VITALS: BP 110/60
[2024-05-13] MEDS: LIDOCAINE 4% PATCH 2 PATCH TOPICAL (08:55)
[2024-05-13] MEDS: SIMBRINZA 1%-0.2% OPHTH SUSP 1 DROP RIGHT EYE (08:56)
[2024-05-13] MEDS: ELIQUIS 5 MG PO (08:56)
[2024-05-13] MEDS: NEURONTIN 300 MG PO ×2 (08:56→15:16)
[2024-05-13] MEDS: MS CONTIN (EXTENDED RELEASE) 30 MG PO (08:56)
[2024-05-13] MEDS: AUGMENTIN 875 MG/125 MG 1 TABLET PO (08:56)
[2024-05-13] MEDS: PROTONIX 40 MG PO (08:56)
--- NOTE | 2024-05-13 10:48 | PTCARENOTE ---
pt aaox3. states pain has improved but increased with movement. lido patches on left hip as ordered. pt asking about discharge. condom cath on pt
--- NOTE | 2024-05-13 11:55 | CM ---
Addendum entered by Julia Silva 05/13/24 14:11:
Patient will go by w/c van, cost of transportation is $85.
Original Note:
Patient has been accepted at [facility] today and bed is available.
[facility]
Report [phone]

Plan; Skilled placement at [facility] when stable.
[2024-05-13] MEDS: ROXICODONE 10 MG PO (11:59)
--- NOTE | 2024-05-13 12:06 | PTCARENOTE ---
pt at bedside reviewed plan of care. pt/ot at bedside to see pt. she and pt are requesting oxy prn one hour prior to pt/ot. med given ad they will return
--- NOTE | 2024-05-13 13:17 | W.DS.TRANS ---
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
-
Discharge Instructions:
Discharge Diagnosis/Procedures Pneumonia
Diet No restrictions
Activity As tolerated
Driving Restrictions Not until seen by your Dr
Bathing Restrictions None
Blood Work None
Others Tests None
Other Services PT,OT
Instructions: Aspiration pneumonia
Hospital-acquired pneumonia
Stand-Alone Forms:
Changes to Home Medications: Yes
Discharge Medications:
DC Medications w/original date entered in [facility]
ramipril 5 mg capsule 5 mg PO QPM Blood Pressure 08/15/18
rosuvastatin 20 mg tablet 20 mg PO QPM High Cholesterol 08/15/18
brinzolamide 1 %-brimonidine 0.2 % eye drops,suspension (Simbrinza) 1 drp RIGHT EYE BID Eye Condition 04/09/23
swkqbhwawfuf-xflpgigc-rbmlvu tablet 2 tab PO DAILY Supplement 04/09/23
travoprost 0.004 % eye drops 1 drp BOTH EYES HS Eye Condition 04/09/23
umeclidinium 62.5 mcg-vilanterol 25 mcg/actuation powdr for inhalation (Anoro Ellipta) 1 inh inhalation R QPM Lung/Breathing Issues 04/09/23
apixaban 5 mg tablet (Eliquis) 5 mg PO BID #60 tabs 04/10/23
Fiber Gummies 4 tab PO DAILY Constipation 03/03/24
metoprolol succinate 25 mg tablet,extended release 24 hr 12.5 mg PO QPM Blood Pressure 03/03/24
omeprazole 40 mg capsule,delayed release 40 mg PO DAILY Gastrointestinal Issue 03/03/24
clobetasol 0.05 % topical cream 1 applic topical DAILYPRN PRN itching 05/02/24
levalbuterol tartrate 45 mcg/actuation aerosol inhaler 2 inh inhalation R Q6HPRN PRN sob 05/02/24
ropinirole 0.25 mg tablet 0.25 mg PO HS Neurological Condition 05/02/24
acetaminophen 500 mg tablet (Tylenol Extra Strength) 1,000 mg (2 x 500 mg) PO Q8H 14 days #84 tabs 05/04/24
bisacodyl 10 mg rectal suppository 10 mg IN [id number] PRN constipation #50 ea 05/04/24
gabapentin 300 mg capsule 300 mg PO TID 30 days #90 caps 05/04/24
polyethylene glycol 3350 17 gram oral powder packet (HealthyLax) 17 g PO DAILYPRN PRN constipation #100 ea 05/04/24
sennosides 8.6 mg-docusate sodium 50 mg tablet 1 tab PO BIDPRN PRN constipation #240 tabs 05/04/24
sennosides 8.6 mg-docusate sodium 50 mg tablet 1 tab-cap PO HS Constipation #60 tabs 05/04/24
lidocaine 5 % topical patch 1 patch topical DAILY Pain 1 month #30 ea 05/06/24
olodaterol 2.5 mcg/actuation mist for inhalation (Striverdi Respimat) 2 puff inhalation R QPM 1 month #4 grams 05/11/24
morphine 30 mg tablet,extended release 30 mg PO Q12H pain #20 tabs 05/13/24
oxycodone 5 mg tablet 10 mg (2 x 5 mg) PO Q4HPRN PRN Pain #36 tabs 05/13/24
Home Medication Changes
Respimat initiated
Pending Results: No
[2024-05-13 13:34] VITALS: BP 121/60; PULSE 66; O2SAT 91
[2024-05-13 13:40] VITALS: BP 121/60; O2SAT 91
[2024-05-13 15:10] VITALS: BP 118/61
== END 2024-05-13 17:21 | DRG 177 ==
LOC: 4 WEST ACU 15:11
PROVIDERS: Internal Medicine; Nurse Practitioner; Registered Nurse; ADMITTING PHYSICIAN Internal Medicine; ATTENDING PHYSICIAN Internal Medicine; CONSULT PHYSICIAN Internal Medicine Critical Care Medicine; EMERGENCY PHYSICIAN Emergency Medicine; FAMILY PHYSICIAN Family Medicine
DX: J69.0 Pneumonitis due to inhalation of food and vomit (principal); J96.01 Acute respiratory failure with hypoxia; C79.51 Secondary malignant neoplasm of bone; I48.92 Unspecified atrial flutter; J44.0 Chronic obstructive pulmonary disease with (acute) lower respiratory infection; J98.11 Atelectasis; C34.31 Malignant neoplasm of lower lobe, right bronchus or lung; Z68.1 Body mass index [BMI] 19.9 or less, adult; R64 Cachexia; G89.3 Neoplasm related pain (acute) (chronic); J18.9 Pneumonia, unspecified organism; Z66 Do not resuscitate; I10 Essential (primary) hypertension; J43.9 Emphysema, unspecified; L89.152 Pressure ulcer of sacral region, stage 2; R62.7 Adult failure to thrive; R13.10 Dysphagia, unspecified; E78.5 Hyperlipidemia, unspecified; F17.200 Nicotine dependence, unspecified, uncomplicated; G47.33 Obstructive sleep apnea (adult) (pediatric); G47.61 Periodic limb movement disorder; I48.0 Paroxysmal atrial fibrillation; K59.00 Constipation, unspecified; N40.0 Benign prostatic hyperplasia without lower urinary tract symptoms; R53.81 Other malaise; Z79.01 Long term (current) use of anticoagulants; Z79.891 Long term (current) use of opiate analgesic; Z79.899 Other long term (current) drug therapy; Z87.19 Personal history of other diseases of the digestive system; Z92.3 Personal history of irradiation; Z90.89 Acquired absence of other organs
CPT/HCPCS: 74230; 80048; 80053; 85025; 85027; 87070; 87205; 92610; 92611; 94640; 97163; 97167; 97530; 97535

== ENCOUNTER 2024-05-14 21:30 | Emergency (ER) | payer MEDICARE, OTHER, SELFPAY ==
[2024-05-14] VITALS (12 sets, daily range): BP systolic 78–116; BP diastolic 41–99
[2024-05-14 22:06] LABS: % Basophils 0.3 % (0-2); % Eosinophils 0.6 % (0-6); % Immature Granulocytes 0.9 % (0-0.5); % Lymphocytes 5.1 % (20.5-51.1); % Monocytes 7.7 % (1.7-9.3); % Neutrophils 85.4 % (42.2-75.2); Absolute Basophils 0.1 10^3/uL (0-0.2); Absolute Eosinophils 0.1 10^3/uL (0-0.7); Absolute Immature Granulocytes 0.2 10^3/uL (0-0.05); Absolute Lymphocytes 0.9 10^3/uL (1.2-3.4); Absolute Monocytes 1.3 10^3/uL (0.1-0.6); Absolute Neutrophils 14.9 10^3/uL (1.4-6.5); Hematocrit 31.6 % (39.0-52.0); Hemoglobin 10.6 g/dL (13.0-18.0); Mean Corp Hgb Conc. 33.5 g/dL (33.0-37.0); Mean Corpuscular Volume 89.5 fL (80.0-94.0); Mean Platelet Volume 9.4 fL (7.4-10.4); Nucleated Red Blood Cells % 0 % (-); Platelet Count 397 10^3/uL (130-400); Red Blood Cell Count 3.53 10^6/uL (4.70-6.10); Red Cell Dist. Width 15.9 % (11.5-14.5); White Blood Cell Count 17.4 10^3/uL (4.8-10.8)
[2024-05-14 22:32] LABS: ALT (SGPT) 32 U/L (0-50); AST (SGOT) 29 U/L (17-59); Albumin 3.2 g/dl (3.5-5.0); Alkaline Phosphatase 70 U/L (38-126); Blood Urea Nitrogen 32 mg/dl (9-20); Calcium 9.3 mg/dl (8.4-10.2); Carbon Dioxide 27 mmol/L (22-30); Chloride 92 mmol/L (98-107); Glucose 125 mg/dl (70-99); Potassium 4.4 mmol/L (3.5-5.1); Sodium 132 mmol/L (135-145); Total Bilirubin 0.5 mg/dl (0.2-1.3); Total Protein 5.7 g/dl (6.3-8.2); eGFR 38.05
--- NOTE | 2024-05-14 23:58 | ED.GENMED ---
History of Present Illness
General
Chief Complaint: Change in Mental Status
Source: patient and family
Time Seen by Provider: 05/14/24 23:31
History of Present Illness
History of Present Illness:
78-year-old male presents to the emergency room from [facility]. Patient was discharged to their yesterday after an admission here at [facility]. Patient was admitted for aspiration pneumonia and pain in his left pelvis and hip from
metastatic lung cancer. Patient was discharged on increased pain medication and increased dose of gabapentin. These increased doses were required for the patient to be able to get out of bed as his abdominal pain is much worse with any sort of
movement. Patient also noted to have a low pulse ox by staff at [facility]. He is currently on 4 L of oxygen. He was discharged on room air. No known fever.
Past History
Past History
ED Past Medical History: HTN and Other (Diverticulitis)
ED Past Surgical History: Appendectomy, Orthopedic (Wrist surgery) and Tonsilectomy
Social History
Tobacco: Smoker
Alcohol: Occasional
Drug: None
Personal:
Living: with family
Employment: Employed
Phy Exam
Physical Exam
Physical Exam:
General: Sleeping but arousable, mildly confused
Vitals: Hypotensive
Head: Atraumatic
Eyes: Pupils equal @2 mm bilaterally, EOMI
Throat: Airway intact, no exudates, dry mucosa
Neck: Trachea midline
Lungs: Clear and equal b/l
Heart: Regular rate, no murmurs
Abd: Soft, Nontender, No pulsatile mass
Neuro: Nonfocal
Skin: Warm, dry, no rash
Extremities: pulses equal b/l, no edema
Course
Orders/Labs/Results
Orders:
Orders
05/14/24 21:57
CMP [Comprehensive Metabolic Panel] Urgent
Complete Blood Count/With Diff Urgent
05/14/24 22:37
Urinalysis Reflex To Culture Urgent
Date Specimen was Collected: 05/14/24
Time Specimen was Collected: 22:37
05/14/24 23:52
0.9% Sodium Chloride 500 ml [Nss] 500 ml IV BOLUS
05/15/24 00:00
CR Chest - 2 Views Urgent
Reason For Exam: hypoxia
05/15/24 01:00
CT Head W/o Iv Contrast Urgent
Reason For Exam: altered mental status
Abnormal Lab Results
05/14/24
21:57
WBC 17.4 H 10^3/uL
(4.8-10.8)
RBC 3.53 L 10^6/uL
(4.70-6.10)
Hgb 10.6 L g/dL
(13.0-18.0)
Hct 31.6 L %
(39.0-52.0)
RDW 15.9 H %
(11.5-14.5)
Abs Immat Gran (auto) 0.2 H 10^3/uL
(0-0.05)
Absolute Neuts (auto) 14.9 H 10^3/uL
(1.4-6.5)
Absolute Lymphs (auto) 0.9 L 10^3/uL
(1.2-3.4)
Absolute Monos (auto) 1.3 H 10^3/uL
(0.1-0.6)
Immature Gran % 0.9 H %
(0-0.5)
Neutrophils % 85.4 H %
(42.2-75.2)
Lymphocytes % 5.1 L %
(20.5-51.1)
Sodium 132 L mmol/L
(135-145)
Chloride 92 L mmol/L
(98-107)
BUN 32 H mg/dl
(9-20)
Creatinine 1.8 H mg/dL
(0.7-1.3)
Glucose 125 H mg/dl
(70-99)
Total Protein 5.7 L g/dl
(6.3-8.2)
Albumin 3.2 L g/dl
(3.5-5.0)
05/14/24 21:57
05/14/24 21:57
Vital Signs
Initial and Last Documented VS:
Initial Vital Signs
Temp Pulse
98.6 F 89
05/14/24 21:32 05/14/24 21:32
Last Documented Vital Signs
Temp Pulse Resp BP Pulse Ox
98.9 F 80 15 111/58 93
05/15/24 00:07 05/15/24 02:30 05/15/24 02:30 05/15/24 02:30 05/15/24 02:15
*Radiology
Radiology exam reviewed: preliminary read by ED provider (no significant change)
*Pulse Oximetry
Patient hypoxic: yes
*EKG
Interpreted by ED Provider?: NA
*Command And Control Officer Interpretation
Rate: normal
Interpretation: normal
Rhythm: sinus
*Critical Care Note
Total Time (30-74mins, 75-104mins- exclusive of procedures): Not Applicable
ED Attending Note
-
Portions of this chart may have been created with voice recognition software.� Occasional wrong word or��sound alike� substitutions may have occurred due to the inherent limitations of voice recognition software.
Discharge Plan
Departure
Patient Disposition: Longterm/SNF
Date of Disposition: 05/15/24
Time of Disposition: 02:52
Condition: Fair
Discharge Problem:
Altered mental status, Medication adverse effect
Instructions: Altered Mental Status (DC), Side effects from medicines
Prescriptions:
No Action
travoprost 0.004 % drops
1 drp BOTH EYES HS
Patient Comments:
05/06/24: Substituted for latanoprost, last dose 05/05/24@21:26
[id number] Tablet
1 tab PO DAILY
Simbrinza 1-0.2 % Drops,Suspension
1 drp RIGHT EYE BID
Anoro Ellipta 62.5-25 mcg/actuation blister with device
1 inh INHALATION R QPM
Patient Comments:
05/06/24: Substituted for Spiriva Respimat, last dose 05/05/24@20:22
Eliquis 5 mg Tablet
5 mg PO BID Qty: 60 5RF
Fiber Gummies 2 gram Tablet,Chewable
4 g PO DAILY Qty: 0
metoprolol succinate 25 mg tablet extended release 24 hr
12.5 mg PO QPM
clobetasol 0.05 % Cream
1 applic TOPICAL DAILYPRN PRN (Reason: itching)
ropinirole 0.25 mg Tablet
0.25 mg PO HS
levalbuterol tartrate 45 mcg/actuation Hfa Aerosol Inhaler
2 inh INHALATION R Q6HPRN PRN (Reason: sob)
bisacodyl 10 mg Suppository
10 mg [place] [id number] PRN (Reason: constipation) Qty: 50 0RF
gabapentin 300 mg Capsule
300 mg PO TID 30 Days Qty: 90 0RF
sennosides-docusate sodium 8.6-50 mg Tablet
1 tab PO BIDPRN PRN (Reason: constipation) Qty: 240 0RF
polyethylene glycol 3350 [HealthyLax] 17 gram Powder In Packet
17 g PO DAILYPRN PRN (Reason: constipation) Qty: 100 0RF
sennosides-docusate sodium 8.6-50 mg Tablet
1 tab-cap PO HS Qty: 60 0RF
lidocaine 5 % adhesive patch,medicated
1 patch topical DAILY 30 Days Qty: 30 0RF
morphine 30 mg tablet extended release
30 mg PO Q12H Qty: 20 0RF
latanoprost 0.005 % Drops
1 drp BOTH EYES HS
atorvastatin 80 mg Tablet
80 mg PO QPM
brinzolamide 1 % Drops,Suspension
1 drp RIGHT EYE BID
psyllium Packet
1 packet PO DAILY
magnesium hydroxide [Milk of Magnesia] 400 mg/5 mL Suspension
30 ml PO HSPRN PRN (Reason: if no bm x 2 days)
bisacodyl [Dulcolax (bisacodyl)] 10 mg Suppository
10 mg [place] DAILYPRN PRN (Reason: if no bm x 3 days)
pantoprazole 40 mg Tablet,Delayed Release (Dr/Ec)
40 mg PO DAILY
lisinopril 10 mg Tablet
10 mg PO DAILY
Fleet Enema 19-7 gram/118 mL Enema
118 ml [place] DAILYPRN PRN (Reason: if no bm x 4 days)
docusate sodium 100 mg Capsule
200 mg PO HS
albuterol sulfate 90 mcg/actuation Hfa Aerosol Inhaler
1 puff INHALATION R Q6HPRN PRN (Reason: sob)
oxycodone 5 mg Tablet
5 mg PO Q6HPRN PRN (Reason: moderate pain)
acetaminophen [Tylenol Extra Strength] 500 mg tablet
1,000 mg PO Q8HPRN PRN (Reason: mild pain)
oxycodone 5 mg tablet
10 mg PO Q6HPRN PRN (Reason: severe pain)
Striverdi Respimat 2.5 mcg/actuation mist
2 puff inhalation R HS
Referrals:
Justin Sanchez MD [Active] -
Jimenez Fitzpatrick MD [Family Provider] -
Activity Restrictions/Additional Instructions:
I believe Mr Higgins was suffering from over-sedation related to pain medication. I would first reduce gabapentin to 300mg twice a day. Should Mr Higgins continue to experience oversedation I would next reduce rescue dose of oxycodone to only
5mg. Please contact Dr. Sanchez, who is a ship painter helper. He may be albe to help with further steps to control pain.
Interventions
Interventions:
*Risk Screen - Suicide Last Done: 05/14/24 21:35
*General Assessment Last Done: 05/14/24 21:35
*Neglect/Abuse Screening Last Done: 05/14/24 21:35
ED- Fall Risk Assessment Last Done: 05/14/24 21:41
*ED COVID-19 Vaccine History Last Done: 05/14/24 21:35
ED- Pulmonary Assessment Last Done: 05/14/24 21:41
ED- Neurological Assessment Last Done: 05/14/24 21:37
ED- Cardiac Assessment Last Done: 05/14/24 21:41
Discharge Date and Time
Print Language: GREENLANDIC
[2024-05-15] VITALS (9 sets, daily range): BP systolic 92–111; BP diastolic 45–59
[2024-05-15] MEDS: NSS 500 IV (00:09)
[2024-05-15 01:20] LABS: Urine Albumin Trace (Neg - Trace); Urine Bilirubin Negative (Negative); Urine Character Clear (Clear); Urine Color Yellow; Urine Glucose Negative (Negative); Urine Ketone Negative (Negative); Urine Leukocyte Negative (Negative); Urine Nitrite Negative (Negative); Urine Occult Blood Negative (Negative); Urine Specific Gravity 1.015 (<1.030); Urine Urobilinogen Negative (Neg - 1+)
== END 2024-05-15 04:31 ==
LOC: EMR 21:30
PROVIDERS: Emergency Medicine; EMERGENCY PHYSICIAN Emergency Medicine; FAMILY PHYSICIAN Family Medicine
DX: R41.82 Altered mental status, unspecified (principal); T50.905A Adverse effect of unspecified drugs, medicaments and biological substances, initial encounter; C34.90 Malignant neoplasm of unspecified part of unspecified bronchus or lung; I10 Essential (primary) hypertension; F17.200 Nicotine dependence, unspecified, uncomplicated; R09.02 Hypoxemia; Z99.81 Dependence on supplemental oxygen
CPT/HCPCS: 99284; 70450; 71046; 80053; 81003; 85025

== ENCOUNTER → 2024-05-16 11:09 | Outpatient (REF) | payer OTHER, MEDICARE, SELFPAY ==
[2024-05-16 11:41] LABS: Hematocrit 30.8 % (39.0-52.0); Hemoglobin 10.1 g/dL (13.0-18.0); Mean Corp Hgb Conc. 32.8 g/dL (33.0-37.0); Mean Corpuscular Hgb 30.4 pg (27.0-31.0); Mean Corpuscular Volume 92.8 fL (80.0-94.0); Mean Platelet Volume 10.9 fL (7.4-10.4); Platelet Count 357 10^3/uL (130-400); Red Blood Cell Count 3.32 10^6/uL (4.70-6.10); Red Cell Dist. Width 15.9 % (11.5-14.5); White Blood Cell Count 12.2 10^3/uL (4.8-10.8)
[2024-05-16 11:53] LABS: ALT (SGPT) 33 U/L (0-50); AST (SGOT) 38 U/L (17-59); Albumin 2.7 g/dl (3.5-5.0); Alkaline Phosphatase 74 U/L (38-126); Blood Urea Nitrogen 23 mg/dl (9-20); Calcium 8.6 mg/dl (8.4-10.2); Carbon Dioxide 24 mmol/L (22-30); Chloride 100 mmol/L (98-107); Glucose 89 mg/dl (70-99); Potassium 4.4 mmol/L (3.5-5.1); Sodium 137 mmol/L (135-145); Total Bilirubin 0.4 mg/dl (0.2-1.3); Total Protein 5.1 g/dl (6.3-8.2); eGFR > 60.00
== END ==
LOC: OLABWHC 11:09
PROVIDERS: ATTENDING PHYSICIAN Family Medicine
DX: I10 Essential (primary) hypertension (principal); C34.11 Malignant neoplasm of upper lobe, right bronchus or lung; I48.91 Unspecified atrial fibrillation
CPT/HCPCS: 36415; 80053; 83735; 85027

== ENCOUNTER → 2024-05-23 09:43 | Outpatient (REF) | payer MEDICARE, OTHER, SELFPAY ==
[2024-05-23 11:23] LABS: % Basophils 0.8 % (0-2); % Eosinophils 1.2 % (0-6); % Immature Granulocytes 0.8 % (0-0.5); % Lymphocytes 6.5 % (20.5-51.1); % Monocytes 7.9 % (1.7-9.3); % Neutrophils 82.8 % (42.2-75.2); Absolute Basophils 0.1 10^3/uL (0-0.2); Absolute Eosinophils 0.2 10^3/uL (0-0.7); Absolute Immature Granulocytes 0.1 10^3/uL (0-0.05); Absolute Lymphocytes 0.9 10^3/uL (1.2-3.4); Absolute Monocytes 1.1 10^3/uL (0.1-0.6); Absolute Neutrophils 11.1 10^3/uL (1.4-6.5); Hematocrit 34.9 % (39.0-52.0); Hemoglobin 11.3 g/dL (13.0-18.0); Mean Corp Hgb Conc. 32.4 g/dL (33.0-37.0); Mean Corpuscular Hgb 29.7 pg (27.0-31.0); Mean Corpuscular Volume 91.6 fL (80.0-94.0); Mean Platelet Volume 10.5 fL (7.4-10.4); Nucleated Red Blood Cells % 0 % (-); Platelet Count 544 10^3/uL (130-400); Red Blood Cell Count 3.81 10^6/uL (4.70-6.10); Red Cell Dist. Width 15.7 % (11.5-14.5); White Blood Cell Count 13.5 10^3/uL (4.8-10.8)
[2024-05-23 11:31] LABS: ALT (SGPT) 33 U/L (0-50); AST (SGOT) 36 U/L (17-59); Albumin 3.3 g/dl (3.5-5.0); Alkaline Phosphatase 90 U/L (38-126); Blood Urea Nitrogen 15 mg/dl (9-20); Calcium 9.2 mg/dl (8.4-10.2); Carbon Dioxide 27 mmol/L (22-30); Chloride 99 mmol/L (98-107); Glucose 99 mg/dl (70-99); Potassium 4.6 mmol/L (3.5-5.1); Sodium 138 mmol/L (135-145); Total Bilirubin 0.5 mg/dl (0.2-1.3); Total Protein 5.8 g/dl (6.3-8.2); eGFR > 60.00
[2024-05-23 11:46] LABS: Free T4 1.81 ng/dl (0.78-2.19)
== END ==
LOC: OLABWHC 09:43
PROVIDERS: ATTENDING PHYSICIAN Family Medicine
DX: N17.9 Acute kidney failure, unspecified (principal); I48.91 Unspecified atrial fibrillation; C34.90 Malignant neoplasm of unspecified part of unspecified bronchus or lung; I10 Essential (primary) hypertension
CPT/HCPCS: 36415; 80053; 84439; 84443; 85025

== ENCOUNTER → 2024-05-28 15:54 | Outpatient (REF) | payer MEDICARE, OTHER, SELFPAY ==
[2024-05-28 14:19] LABS: % Basophils 0.3 % (0-2); % Eosinophils 1.8 % (0-6); % Immature Granulocytes 0.3 % (0-0.5); % Lymphocytes 8.3 % (20.5-51.1); % Monocytes 8.8 % (1.7-9.3); % Neutrophils 80.5 % (42.2-75.2); Absolute Eosinophils 0.2 10^3/uL (0-0.7); Absolute Neutrophils 9.2 10^3/uL (1.4-6.5); Hematocrit 34.8 % (39.0-52.0); Hemoglobin 11.2 g/dL (13.0-18.0); Mean Corp Hgb Conc. 32.2 g/dL (33.0-37.0); Mean Corpuscular Hgb 30.4 pg (27.0-31.0); Mean Corpuscular Volume 94.3 fL (80.0-94.0); Mean Platelet Volume 9.3 fL (7.4-10.4); Platelet Count 462 10^3/uL (130-400); Red Blood Cell Count 3.69 10^6/uL (4.70-6.10); White Blood Cell Count 11.4 10^3/uL (4.8-10.8)
[2024-05-28 15:41] LABS: ALT (SGPT) 30 U/L (0-50); AST (SGOT) 35 U/L (17-59); Albumin 3.4 g/dl (3.5-5.0); Alkaline Phosphatase 78 U/L (38-126); Blood Urea Nitrogen 15 mg/dl (9-20); Calcium 9.2 mg/dl (8.4-10.2); Carbon Dioxide 28 mmol/L (22-30); Chloride 100 mmol/L (98-107); Glucose 139 mg/dl (70-99); Potassium 4.9 mmol/L (3.5-5.1); Sodium 139 mmol/L (135-145); Total Bilirubin 0.4 mg/dl (0.2-1.3); eGFR > 60.00
[2024-05-28 16:12] LABS: TSH 2.19 uIU/ml (0.47-4.68)
== END ==
LOC: OIDL 15:54
PROVIDERS: ATTENDING PHYSICIAN Internal Medicine Hematology & Oncology
DX: C34.90 Malignant neoplasm of unspecified part of unspecified bronchus or lung (principal); C34.91 Malignant neoplasm of unspecified part of right bronchus or lung; C79.51 Secondary malignant neoplasm of bone; R53.82 Chronic fatigue, unspecified
CPT/HCPCS: 80053; 84443; 85025

== ENCOUNTER → 2024-06-16 11:11 | Outpatient (REF) | payer MEDICARE, OTHER, SELFPAY ==
[2024-06-16 12:05] LABS: % Basophils 0.5 % (0-2); % Eosinophils 0.6 % (0-6); % Immature Granulocytes 0.3 % (0-0.5); % Lymphocytes 5.1 % (20.5-51.1); % Monocytes 6.6 % (1.7-9.3); % Neutrophils 86.9 % (42.2-75.2); Absolute Basophils 0.1 10^3/uL (0-0.2); Absolute Eosinophils 0.1 10^3/uL (0-0.7); Absolute Lymphocytes 0.6 10^3/uL (1.2-3.4); Absolute Monocytes 0.8 10^3/uL (0.1-0.6); Hematocrit 32.5 % (39.0-52.0); Hemoglobin 10.6 g/dL (13.0-18.0); Mean Corp Hgb Conc. 32.6 g/dL (33.0-37.0); Mean Corpuscular Hgb 30.7 pg (27.0-31.0); Mean Corpuscular Volume 94.2 fL (80.0-94.0); Mean Platelet Volume 10.6 fL (7.4-10.4); Nucleated Red Blood Cells % 0 % (-); Platelet Count 359 10^3/uL (130-400); Red Blood Cell Count 3.45 10^6/uL (4.70-6.10); Red Cell Dist. Width 16.6 % (11.5-14.5); White Blood Cell Count 12.6 10^3/uL (4.8-10.8)
[2024-06-16 12:21] LABS: ALT (SGPT) 21 U/L (0-50); AST (SGOT) 30 U/L (17-59); Albumin 3.6 g/dl (3.5-5.0); Alkaline Phosphatase 83 U/L (38-126); Blood Urea Nitrogen 15 mg/dl (9-20); Calcium 8.3 mg/dl (8.4-10.2); Carbon Dioxide 25 mmol/L (22-30); Chloride 102 mmol/L (98-107); Glucose 116 mg/dl (70-99); Sodium 139 mmol/L (135-145); Total Bilirubin 0.7 mg/dl (0.2-1.3); Total Protein 6.3 g/dl (6.3-8.2); eGFR > 60.00
== END ==
LOC: REG 11:11
PROVIDERS: ATTENDING PHYSICIAN Internal Medicine Hematology & Oncology; FAMILY PHYSICIAN Family Medicine
DX: C34.90 Malignant neoplasm of unspecified part of unspecified bronchus or lung (principal); C34.91 Malignant neoplasm of unspecified part of right bronchus or lung; C79.51 Secondary malignant neoplasm of bone; R53.82 Chronic fatigue, unspecified
CPT/HCPCS: 36415; 80053; 84443; 85025

== ENCOUNTER → 2024-07-07 14:48 | Outpatient (REF) | payer MEDICARE, OTHER, SELFPAY ==
[2024-07-07 15:58] LABS: % Basophils 0.6 % (0-2); % Eosinophils 1.9 % (0-6); % Immature Granulocytes 0.6 % (0-0.5); % Lymphocytes 6.5 % (20.5-51.1); % Monocytes 9.3 % (1.7-9.3); % Neutrophils 81.1 % (42.2-75.2); Absolute Basophils 0.1 10^3/uL (0-0.2); Absolute Eosinophils 0.2 10^3/uL (0-0.7); Absolute Immature Granulocytes 0.1 10^3/uL (0-0.05); Absolute Lymphocytes 0.6 10^3/uL (1.2-3.4); Absolute Monocytes 0.9 10^3/uL (0.1-0.6); Absolute Neutrophils 7.6 10^3/uL (1.4-6.5); Hematocrit 34.8 % (39.0-52.0); Hemoglobin 10.4 g/dL (13.0-18.0); Mean Corp Hgb Conc. 29.9 g/dL (33.0-37.0); Mean Corpuscular Hgb 28.8 pg (27.0-31.0); Mean Corpuscular Volume 96.4 fL (80.0-94.0); Mean Platelet Volume 9.9 fL (7.4-10.4); Nucleated Red Blood Cells % 0 % (-); Platelet Count 420 10^3/uL (130-400); Red Blood Cell Count 3.61 10^6/uL (4.70-6.10); White Blood Cell Count 9.4 10^3/uL (4.8-10.8)
[2024-07-07 16:04] LABS: ALT (SGPT) 24 U/L (0-50); AST (SGOT) 29 U/L (17-59); Albumin 3.6 g/dl (3.5-5.0); Alkaline Phosphatase 69 U/L (38-126); Blood Urea Nitrogen 27 mg/dl (9-20); Calcium 8.9 mg/dl (8.4-10.2); Carbon Dioxide 28 mmol/L (22-30); Chloride 100 mmol/L (98-107); Glucose 121 mg/dl (70-99); Sodium 138 mmol/L (135-145); Total Bilirubin 0.5 mg/dl (0.2-1.3); Total Protein 6.3 g/dl (6.3-8.2); eGFR > 60.00
== END ==
LOC: REG 14:48
PROVIDERS: ATTENDING PHYSICIAN Internal Medicine Hematology & Oncology; FAMILY PHYSICIAN Family Medicine
DX: C34.90 Malignant neoplasm of unspecified part of unspecified bronchus or lung (principal); C34.91 Malignant neoplasm of unspecified part of right bronchus or lung; C79.51 Secondary malignant neoplasm of bone; R53.82 Chronic fatigue, unspecified
CPT/HCPCS: 36415; 80053; 84443; 85025

== ENCOUNTER → 2024-07-28 15:58 | Outpatient (REF) | payer MEDICARE, OTHER, SELFPAY ==
[2024-07-28 17:48] LABS: % Basophils 0.7 % (0-2); % Eosinophils 6.1 % (0-6); % Immature Granulocytes 0.4 % (0-0.5); % Lymphocytes 7.5 % (20.5-51.1); % Monocytes 10.7 % (1.7-9.3); % Neutrophils 74.6 % (42.2-75.2); Absolute Basophils 0.1 10^3/uL (0-0.2); Absolute Eosinophils 0.5 10^3/uL (0-0.7); Absolute Lymphocytes 0.6 10^3/uL (1.2-3.4); Absolute Monocytes 0.9 10^3/uL (0.1-0.6); Absolute Neutrophils 6.3 10^3/uL (1.4-6.5); Hematocrit 34.7 % (39.0-52.0); Hemoglobin 10.7 g/dL (13.0-18.0); Mean Corp Hgb Conc. 30.8 g/dL (33.0-37.0); Mean Corpuscular Hgb 29.1 pg (27.0-31.0); Mean Corpuscular Volume 94.3 fL (80.0-94.0); Mean Platelet Volume 9.9 fL (7.4-10.4); Nucleated Red Blood Cells % 0 % (-); Platelet Count 387 10^3/uL (130-400); Red Blood Cell Count 3.68 10^6/uL (4.70-6.10); Red Cell Dist. Width 16.5 % (11.5-14.5); White Blood Cell Count 8.5 10^3/uL (4.8-10.8)
[2024-07-28 17:57] LABS: ALT (SGPT) 18 U/L (0-50); AST (SGOT) 24 U/L (17-59); Albumin 3.7 g/dl (3.5-5.0); Alkaline Phosphatase 72 U/L (38-126); Blood Urea Nitrogen 22 mg/dl (9-20); Calcium 9.1 mg/dl (8.4-10.2); Carbon Dioxide 30 mmol/L (22-30); Chloride 98 mmol/L (98-107); Glucose 116 mg/dl (70-99); Potassium 4.8 mmol/L (3.5-5.1); Sodium 137 mmol/L (135-145); Total Bilirubin 0.3 mg/dl (0.2-1.3); Total Protein 6.4 g/dl (6.3-8.2); eGFR > 60.00
[2024-07-28 18:26] LABS: TSH Reflex To Free T4 2.63 uIU/ml (0.47-4.68)
== END ==
LOC: REG 15:58
PROVIDERS: ATTENDING PHYSICIAN Internal Medicine Hematology & Oncology; FAMILY PHYSICIAN Family Medicine
DX: C34.90 Malignant neoplasm of unspecified part of unspecified bronchus or lung (principal); C34.91 Malignant neoplasm of unspecified part of right bronchus or lung; C79.51 Secondary malignant neoplasm of bone; R53.82 Chronic fatigue, unspecified
CPT/HCPCS: 36415; 80053; 84443; 85025

== ENCOUNTER → 2024-08-11 15:29 | Outpatient (REF) | payer MEDICARE, OTHER, SELFPAY | LOC: RCS 15:29 | PROVIDERS: ATTENDING PHYSICIAN Internal Medicine Critical Care Medicine; FAMILY PHYSICIAN Family Medicine | DX: C34.91 Malignant neoplasm of unspecified part of right bronchus or lung (principal); C34.11 Malignant neoplasm of upper lobe, right bronchus or lung; J43.2 Centrilobular emphysema; I48.91 Unspecified atrial fibrillation | CPT/HCPCS: 93306 ==

== ENCOUNTER → 2024-08-18 11:29 | Outpatient (REF) | payer MEDICARE, OTHER, SELFPAY ==
[2024-08-18 13:01] LABS: % Basophils 0.7 % (0-2); % Eosinophils 5.1 % (0-6); % Immature Granulocytes 0.4 % (0-0.5); % Lymphocytes 7.5 % (20.5-51.1); % Neutrophils 77.3 % (42.2-75.2); Absolute Basophils 0.1 10^3/uL (0-0.2); Absolute Eosinophils 0.4 10^3/uL (0-0.7); Absolute Lymphocytes 0.6 10^3/uL (1.2-3.4); Absolute Monocytes 0.8 10^3/uL (0.1-0.6); Absolute Neutrophils 6.4 10^3/uL (1.4-6.5); Hematocrit 35.7 % (39.0-52.0); Hemoglobin 10.8 g/dL (13.0-18.0); Mean Corp Hgb Conc. 30.3 g/dL (33.0-37.0); Mean Corpuscular Hgb 28.3 pg (27.0-31.0); Mean Corpuscular Volume 93.7 fL (80.0-94.0); Mean Platelet Volume 10.2 fL (7.4-10.4); Nucleated Red Blood Cells % 0 % (-); Platelet Count 375 10^3/uL (130-400); Red Blood Cell Count 3.81 10^6/uL (4.70-6.10); Red Cell Dist. Width 16.4 % (11.5-14.5); White Blood Cell Count 8.3 10^3/uL (4.8-10.8)
[2024-08-18 13:36] LABS: ALT (SGPT) 22 U/L (0-50); AST (SGOT) 25 U/L (17-59); Albumin 3.7 g/dl (3.5-5.0); Alkaline Phosphatase 69 U/L (38-126); Blood Urea Nitrogen 25 mg/dl (9-20); Carbon Dioxide 29 mmol/L (22-30); Chloride 97 mmol/L (98-107); Glucose 106 mg/dl (70-99); Potassium 4.9 mmol/L (3.5-5.1); Sodium 135 mmol/L (135-145); Total Bilirubin 0.4 mg/dl (0.2-1.3); Total Protein 6.5 g/dl (6.3-8.2); eGFR > 60.00
[2024-08-18 14:05] LABS: TSH Reflex To Free T4 2.08 uIU/ml (0.47-4.68)
== END ==
LOC: REG 11:29
PROVIDERS: ATTENDING PHYSICIAN Internal Medicine Hematology & Oncology; FAMILY PHYSICIAN Family Medicine
DX: C34.90 Malignant neoplasm of unspecified part of unspecified bronchus or lung (principal); C34.91 Malignant neoplasm of unspecified part of right bronchus or lung; C79.51 Secondary malignant neoplasm of bone; R53.82 Chronic fatigue, unspecified
CPT/HCPCS: 36415; 80053; 84443; 85025

== ENCOUNTER → 2024-09-08 12:43 | Outpatient (REF) | payer MEDICARE, OTHER, SELFPAY ==
[2024-09-08 13:38] LABS: % Basophils 0.3 % (0-2); % Eosinophils 2.6 % (0-6); % Immature Granulocytes 0.3 % (0-0.5); % Lymphocytes 4.8 % (20.5-51.1); % Monocytes 9.5 % (1.7-9.3); % Neutrophils 82.5 % (42.2-75.2); Absolute Eosinophils 0.3 10^3/uL (0-0.7); Absolute Lymphocytes 0.5 10^3/uL (1.2-3.4); Absolute Monocytes 0.9 10^3/uL (0.1-0.6); Absolute Neutrophils 7.9 10^3/uL (1.4-6.5); Hemoglobin 10.9 g/dL (13.0-18.0); Mean Corp Hgb Conc. 31.1 g/dL (33.0-37.0); Mean Corpuscular Hgb 28.5 pg (27.0-31.0); Mean Corpuscular Volume 91.4 fL (80.0-94.0); Mean Platelet Volume 9.9 fL (7.4-10.4); Nucleated Red Blood Cells % 0 % (-); Platelet Count 278 10^3/uL (130-400); Red Blood Cell Count 3.83 10^6/uL (4.70-6.10); Red Cell Dist. Width 16.7 % (11.5-14.5); White Blood Cell Count 9.6 10^3/uL (4.8-10.8)
[2024-09-08 13:47] LABS: ALT (SGPT) 21 U/L (0-50); AST (SGOT) 26 U/L (17-59); Albumin 3.8 g/dl (3.5-5.0); Alkaline Phosphatase 65 U/L (38-126); Blood Urea Nitrogen 23 mg/dl (9-20); Calcium 8.7 mg/dl (8.4-10.2); Carbon Dioxide 28 mmol/L (22-30); Chloride 95 mmol/L (98-107); Glucose 113 mg/dl (70-99); Potassium 4.8 mmol/L (3.5-5.1); Sodium 132 mmol/L (135-145); Total Bilirubin 0.7 mg/dl (0.2-1.3); Total Protein 6.3 g/dl (6.3-8.2); eGFR > 60.00
[2024-09-08 14:17] LABS: TSH Reflex To Free T4 2.52 uIU/ml (0.47-4.68)
== END ==
LOC: REG 12:43
PROVIDERS: ATTENDING PHYSICIAN Internal Medicine Hematology & Oncology; FAMILY PHYSICIAN Family Medicine
DX: C79.51 Secondary malignant neoplasm of bone (principal); R53.82 Chronic fatigue, unspecified; C34.91 Malignant neoplasm of unspecified part of right bronchus or lung; C34.90 Malignant neoplasm of unspecified part of unspecified bronchus or lung
CPT/HCPCS: 36415; 80053; 84443; 85025

== ENCOUNTER 2024-09-16 08:17 | Outpatient (RCR) | payer MEDICARE, OTHER, SELFPAY | END 2024-09-16 23:59 | disposition home or self-care (01) | LOC: RPT 08:17 | PROVIDERS: ATTENDING PHYSICIAN Nurse Practitioner Family; FAMILY PHYSICIAN Family Medicine | DX: R53.81 Other malaise (principal); R26.2 Difficulty in walking, not elsewhere classified; M62.81 Muscle weakness (generalized); Z73.6 Limitation of activities due to disability | CPT/HCPCS: 97163; 97530 ==

== ENCOUNTER → 2024-09-29 13:02 | Outpatient (REF) | payer MEDICARE, OTHER, SELFPAY ==
[2024-09-29 13:35] LABS: % Basophils 0.8 % (0-2); % Eosinophils 1.2 % (0-6); % Immature Granulocytes 0.5 % (0-0.5); % Monocytes 11.4 % (1.7-9.3); % Neutrophils 81.1 % (42.2-75.2); Absolute Basophils 0.1 10^3/uL (0-0.2); Absolute Eosinophils 0.1 10^3/uL (0-0.7); Absolute Lymphocytes 0.3 10^3/uL (1.2-3.4); Absolute Monocytes 0.7 10^3/uL (0.1-0.6); Absolute Neutrophils 4.9 10^3/uL (1.4-6.5); Hematocrit 32.5 % (39.0-52.0); Hemoglobin 10.3 g/dL (13.0-18.0); Mean Corp Hgb Conc. 31.7 g/dL (33.0-37.0); Mean Corpuscular Hgb 29.2 pg (27.0-31.0); Mean Corpuscular Volume 92.1 fL (80.0-94.0); Mean Platelet Volume 9.6 fL (7.4-10.4); Nucleated Red Blood Cells % 0 % (-); Platelet Count 287 10^3/uL (130-400); Red Blood Cell Count 3.53 10^6/uL (4.70-6.10); Red Cell Dist. Width 17.2 % (11.5-14.5); White Blood Cell Count 6.1 10^3/uL (4.8-10.8)
[2024-09-29 14:47] LABS: ALT (SGPT) 27 U/L (0-50); AST (SGOT) 29 U/L (17-59); Albumin 3.5 g/dl (3.5-5.0); Alkaline Phosphatase 62 U/L (38-126); Blood Urea Nitrogen 22 mg/dl (9-20); Calcium 8.8 mg/dl (8.4-10.2); Carbon Dioxide 28 mmol/L (22-30); Chloride 95 mmol/L (98-107); Glucose 96 mg/dl (70-99); Potassium 4.5 mmol/L (3.5-5.1); Sodium 132 mmol/L (135-145); Total Bilirubin 0.6 mg/dl (0.2-1.3); Total Protein 6.2 g/dl (6.3-8.2); eGFR > 60.00
[2024-09-29 15:08] LABS: TSH Reflex To Free T4 2.84 uIU/ml (0.47-4.68)
== END ==
LOC: REG 13:02
PROVIDERS: ATTENDING PHYSICIAN Internal Medicine Hematology & Oncology; FAMILY PHYSICIAN Family Medicine
DX: C34.90 Malignant neoplasm of unspecified part of unspecified bronchus or lung (principal); C34.91 Malignant neoplasm of unspecified part of right bronchus or lung; C79.51 Secondary malignant neoplasm of bone; R53.82 Chronic fatigue, unspecified
CPT/HCPCS: 36415; 80053; 84443; 85025

== ENCOUNTER 2024-10-14 15:02 | Outpatient (RCR) | payer MEDICARE, OTHER, SELFPAY | END 2024-10-14 23:59 | disposition home or self-care (01) | LOC: RPT 15:02 | PROVIDERS: ATTENDING PHYSICIAN Nurse Practitioner Family; FAMILY PHYSICIAN Family Medicine | DX: R53.81 Other malaise (principal); R26.2 Difficulty in walking, not elsewhere classified; M62.81 Muscle weakness (generalized); Z73.6 Limitation of activities due to disability; R26.89 Other abnormalities of gait and mobility; C79.51 Secondary malignant neoplasm of bone; C34.90 Malignant neoplasm of unspecified part of unspecified bronchus or lung; C79.9 Secondary malignant neoplasm of unspecified site | CPT/HCPCS: 97110; 97112; 97116; 97530 ==

== ENCOUNTER → 2024-10-20 13:10 | Outpatient (REF) | payer MEDICARE, OTHER, SELFPAY ==
[2024-10-20 14:19] LABS: % Basophils 0.6 % (0-2); % Eosinophils 2.7 % (0-6); % Immature Granulocytes 0.5 % (0-0.5); % Lymphocytes 4.2 % (20.5-51.1); % Monocytes 10.2 % (1.7-9.3); % Neutrophils 81.8 % (42.2-75.2); Absolute Eosinophils 0.2 10^3/uL (0-0.7); Absolute Lymphocytes 0.3 10^3/uL (1.2-3.4); Absolute Monocytes 0.7 10^3/uL (0.1-0.6); Absolute Neutrophils 5.4 10^3/uL (1.4-6.5); Hemoglobin 10.5 g/dL (13.0-18.0); Mean Corp Hgb Conc. 31.8 g/dL (33.0-37.0); Mean Corpuscular Hgb 29.2 pg (27.0-31.0); Mean Corpuscular Volume 91.7 fL (80.0-94.0); Nucleated Red Blood Cells % 0 % (-); Platelet Count 265 10^3/uL (130-400); Red Cell Dist. Width 17.3 % (11.5-14.5); White Blood Cell Count 6.6 10^3/uL (4.8-10.8)
[2024-10-20 14:42] LABS: ALT (SGPT) 209 U/L (0-50); AST (SGOT) 161 U/L (17-59); Albumin 3.7 g/dl (3.5-5.0); Alkaline Phosphatase 258 U/L (38-126); Blood Urea Nitrogen 25 mg/dl (9-20); Calcium 8.5 mg/dl (8.4-10.2); Carbon Dioxide 28 mmol/L (22-30); Chloride 99 mmol/L (98-107); Glucose 124 mg/dl (70-99); Potassium 4.7 mmol/L (3.5-5.1); Sodium 137 mmol/L (135-145); Total Bilirubin 0.8 mg/dl (0.2-1.3); Total Protein 6.3 g/dl (6.3-8.2); eGFR > 60.00
[2024-10-20 15:12] LABS: TSH Reflex To Free T4 3.03 uIU/ml (0.47-4.68)
== END ==
LOC: REG 13:10
PROVIDERS: ATTENDING PHYSICIAN Internal Medicine Hematology & Oncology; FAMILY PHYSICIAN Family Medicine
DX: C34.90 Malignant neoplasm of unspecified part of unspecified bronchus or lung (principal); C34.91 Malignant neoplasm of unspecified part of right bronchus or lung; C79.51 Secondary malignant neoplasm of bone; R53.82 Chronic fatigue, unspecified
CPT/HCPCS: 36415; 80053; 84443; 85025

== ENCOUNTER → 2024-10-22 16:31 | Outpatient (REF) | payer MEDICARE, OTHER, SELFPAY ==
[2024-10-22 17:18] LABS: ALT (SGPT) 200 U/L (0-50); AST (SGOT) 100 U/L (17-59); Albumin 3.7 g/dl (3.5-5.0); Alkaline Phosphatase 266 U/L (38-126); Blood Urea Nitrogen 23 mg/dl (9-20); Calcium 8.2 mg/dl (8.4-10.2); Carbon Dioxide 27 mmol/L (22-30); Chloride 98 mmol/L (98-107); Glucose 110 mg/dl (70-99); Potassium 4.8 mmol/L (3.5-5.1); Sodium 133 mmol/L (135-145); Total Bilirubin 0.6 mg/dl (0.2-1.3); Total Protein 6.3 g/dl (6.3-8.2); eGFR > 60.00
== END ==
LOC: OIDL 16:31
PROVIDERS: ATTENDING PHYSICIAN Internal Medicine Hematology & Oncology
DX: C34.90 Malignant neoplasm of unspecified part of unspecified bronchus or lung (principal)
CPT/HCPCS: 80053

== ENCOUNTER → 2024-10-27 12:15 | Outpatient (REF) | payer MEDICARE, OTHER, SELFPAY ==
[2024-10-27 14:21] LABS: % Basophils 0.4 % (0-2); % Eosinophils 0.2 % (0-6); % Immature Granulocytes 0.5 % (0-0.5); % Lymphocytes 3.9 % (20.5-51.1); % Monocytes 12.6 % (1.7-9.3); % Neutrophils 82.4 % (42.2-75.2); Absolute Lymphocytes 0.3 10^3/uL (1.2-3.4); Absolute Monocytes 1.1 10^3/uL (0.1-0.6); Absolute Neutrophils 7.1 10^3/uL (1.4-6.5); Hematocrit 30.9 % (39.0-52.0); Hemoglobin 10.3 g/dL (13.0-18.0); Mean Corp Hgb Conc. 33.3 g/dL (33.0-37.0); Mean Corpuscular Hgb 30.3 pg (27.0-31.0); Mean Corpuscular Volume 90.9 fL (80.0-94.0); Mean Platelet Volume 9.9 fL (7.4-10.4); Nucleated Red Blood Cells % 0 % (-); Platelet Count 306 10^3/uL (130-400); Red Cell Dist. Width 16.9 % (11.5-14.5); White Blood Cell Count 8.6 10^3/uL (4.8-10.8)
[2024-10-27 14:49] LABS: ALT (SGPT) 132 U/L (0-50); AST (SGOT) 91 U/L (17-59); Albumin 3.5 g/dl (3.5-5.0); Alkaline Phosphatase 250 U/L (38-126); Blood Urea Nitrogen 24 mg/dl (9-20); Calcium 8.6 mg/dl (8.4-10.2); Carbon Dioxide 29 mmol/L (22-30); Chloride 96 mmol/L (98-107); Glucose 126 mg/dl (70-99); Potassium 5.1 mmol/L (3.5-5.1); Sodium 133 mmol/L (135-145); Total Bilirubin 0.9 mg/dl (0.2-1.3); Total Protein 6.2 g/dl (6.3-8.2); eGFR > 60.00
[2024-10-27 15:14] LABS: TSH Reflex To Free T4 2.94 uIU/ml (0.47-4.68)
== END ==
LOC: REG 12:15
PROVIDERS: ATTENDING PHYSICIAN Radiology Radiation Oncology; FAMILY PHYSICIAN Family Medicine; REFERRING PHYSICIAN Internal Medicine Hematology & Oncology
DX: C34.90 Malignant neoplasm of unspecified part of unspecified bronchus or lung (principal); C34.91 Malignant neoplasm of unspecified part of right bronchus or lung; C79.51 Secondary malignant neoplasm of bone; R53.82 Chronic fatigue, unspecified; M79.89 Other specified soft tissue disorders; M79.604 Pain in right leg
CPT/HCPCS: 36415; 80053; 84443; 85025; 93971

== ENCOUNTER 2024-10-27 13:35 | Emergency (ER) | payer MEDICARE, OTHER, SELFPAY ==
[2024-10-27] VITALS (7 sets, daily range): BP systolic 122–136; BP diastolic 57–85; BMI 21.8
--- NOTE | 2024-10-27 14:15 | ED.GENMED ---
History of Present Illness
General
Chief Complaint: Vascular Symptoms
Source: patient
Exam Limitations: none
Time Seen by Provider: 10/27/24 14:05
History of Present Illness
History of Present Illness:
See MDM
Past History
Past History
ED Past Medical History: HTN and Other (Diverticulitis)
ED Past Surgical History: Appendectomy, Orthopedic (Wrist surgery) and Tonsilectomy
Social History
Tobacco: Smoker
Alcohol: Occasional
Drug: None
Personal:
Living: with family
Employment: Employed
Phy Exam
Physical Exam
Physical Exam:
See MDM
Course
Orders/Labs/Results
Orders:
Orders
10/27/24 14:15
HYDROmorphone [Dilaudid] 1 mg IV NOW STA
10/27/24 14:18
CT Chest Angio W/wo Iv Contras Urgent
Comment: w/ venous phase
Reason For Exam: Chest and R shoulder pain
10/27/24 14:34
Complete Blood Count/With Diff Urgent
Comprehensive Metabolic Panel Urgent
PTT Urgent
Prothrombin Time Urgent
10/27/24 14:48
ECG [Electrocardiogram (*1)] Urgent
Reason for Study: Abnormal EKG
EKG- Treatment ONCE
10/27/24 15:28
Diltiazem HCl [Cardizem] 10 mg IV NOW STA
10/27/24 15:53
0.9% Sodium Chloride 1000 ml [Nss] 1,000 ml IV BOLUS
HYDROmorphone [Dilaudid] 1 mg IV NOW STA
10/27/24 16:56
Diltiazem HCl [Cardizem] 10 mg IV NOW STA
10/27/24 19:05
HYDROmorphone [Dilaudid] 1 mg IV NOW STA
Abnormal Lab Results
04/07/25
14:34
RBC 3.41 L 10^6/uL
(4.70-6.10)
Hgb 9.9 L g/dL
(13.0-18.0)
Hct 30.9 L %
(39.0-52.0)
MCHC 32.0 L g/dL
(33.0-37.0)
RDW 16.7 H %
(11.5-14.5)
Absolute Neuts (auto) 6.6 H 10^3/uL
(1.4-6.5)
Absolute Lymphs (auto) 0.3 L 10^3/uL
(1.2-3.4)
Absolute Monos (auto) 1.0 H 10^3/uL
(0.1-0.6)
Neutrophils % 82.2 H %
(42.2-75.2)
Lymphocytes % 4.2 L %
(20.5-51.1)
Monocytes % 12.8 H %
(1.7-9.3)
PT 18.2 H Sec
(11.4-14.6)
APTT 40.2 H Sec
(23.4-35.0)
Sodium 134 L mmol/L
(135-145)
Carbon Dioxide 31 H mmol/L
(22-30)
BUN 23 H mg/dl
(9-20)
Creatinine 0.6 L mg/dL
(0.7-1.3)
Glucose 192 H mg/dl
(70-99)
AST 89 H U/L
(17-59)
ALT 116 H U/L
(0-50)
Alkaline Phosphatase 223 H U/L
(38-126)
Total Protein 5.9 L g/dl
(6.3-8.2)
Albumin 3.2 L g/dl
(3.5-5.0)
10/27/24 14:34
10/27/24 14:34
Vital Signs
Initial and Last Documented VS:
Initial Vital Signs
Temp Pulse Resp BP Pulse Ox
98.2 F 65 18 124/57 98
10/27/24 13:50 10/27/24 13:50 10/27/24 13:50 10/27/24 13:50 10/27/24 13:50
Last Documented Vital Signs
Temp Pulse Resp BP Pulse Ox
98.2 F 117 13 123/74 96
10/27/24 13:50 10/27/24 18:30 10/27/24 18:30 10/27/24 18:00 10/27/24 18:30
MDM/Problems Addressed
Differential Diagnosis Includes:
HPI and MDM Narrative:
79-year-old male presenting for evaluation of right arm pain and shoulder pain. He had an outpatient ultrasound to rule out DVT. There is no evidence of DVT but it raised suspicion for a more proximal DVT. Patient is on Eliquis for A-fib. He has
a history of non-small cell lung cancer with metastasis and currently on Keytruda. Will provide pain medicine and will obtain CT chest to rule out proximal clot
Physical exam
General: Well appearing and non-toxic
HEENT: protecting airway
Neck: appears supple
CV: No evidence of cyanosis
Resp: No accessory muscle use
Abd: Non-distended
Extremities: Right arm neurovascularly intact. Evidence of superficial bulging veins in his right bicep
Neuro: alert
Psych: Normal affect
Skin: Intact
Problems Addressed including Acute and Chronic Conditions affecting care:
1. Right shoulder pain
Acuity: acute
Prognosis: stable
Details: Given the ultrasound report, will obtain CT chest to rule out proximal DVT
2. A flutter
Acuity: acute
Prognosis: stable
Details: Will give dose of Cardizem
Updates
Patient intermittently going between sinus rhythm and a flutter. Will give dose of IV Cardizem
Case discussed with radiology. It appears that his metastatic lymphadenopathy is narrowing the junction at the left brachiocephalic and SVC. We did discuss the possibility of SVC syndrome. At this point, discussed case with vascular surgeon who
suggested that patient follow-up with radiation oncology before following up with vascular surgeon. Family comfortable with plan
Differential Diagnosis (but not limited to): DVT, mass effect
Testing considered: Chest x-ray
Drug therapy (if applicable): OTC meds, please see d/c instruction regarding Rx drugs
Amount and/or Complexity of Data Reviewed
Clinical info obtained from: Patient
External data reviewed: N/A
Labs I independently reviewed (but not limited to): Stable anemia
Radiology: The CT scan was personally and independently reviewed. In addition, official CT report reviewed.
Pulse Ox: not hypoxic
EKG independently reviewed: N/A
[place]: N/A
Critical Care: N/A
Risk of Complication:
Social Determinants of health: Good social support
Discussed with other providers: Radiologist, vascular surgeon
Escalation of Care includes Admit/Obs: After being observed in the Emergency Department, pt stable for discharge.
Occasional wrong word or 'sound a like' substitutions may have occurred due to the inherent limitations of voice recognition software. Read the chart carefully and recognize, using context, where substitutions have occurred.
*Critical Care Note
Total Time (30-74mins, 75-104mins- exclusive of procedures): Not Applicable
ED Attending Note
-
Portions of this chart may have been created with voice recognition software.� Occasional wrong word or��sound alike� substitutions may have occurred due to the inherent limitations of voice recognition software.
Discharge Plan
Departure
Patient Disposition: Home (Routine Discharge)
Date of Disposition: 10/27/24
Time of Disposition: 19:14
Patient with high blood pressure during this ER visit?: No
Discharge Problem:
Superior vena caval syndrome
Prescriptions:
No Action
travoprost 0.004 % drops
1 drp BOTH EYES HS
Patient Comments:
05/06/24: Substituted for latanoprost, last dose 05/05/24@21:26
[id number]-qgkbobje-[id number] Tablet
1 tab PO DAILY
Simbrinza 1-0.2 % Drops,Suspension
1 drp RIGHT EYE BID
Anoro Ellipta 62.5-25 mcg/actuation blister with device
1 inh INHALATION R QPM
Patient Comments:
05/06/24: Substituted for Spiriva Respimat, last dose 05/05/24@20:22
Eliquis 5 mg Tablet
5 mg PO BID Qty: 60 5RF
Fiber Gummies 2 gram Tablet,Chewable
4 g PO DAILY Qty: 0
metoprolol succinate 25 mg tablet extended release 24 hr
12.5 mg PO QPM
clobetasol 0.05 % Cream
1 applic TOPICAL DAILYPRN PRN (Reason: itching)
ropinirole 0.25 mg Tablet
0.25 mg PO HS
levalbuterol tartrate 45 mcg/actuation Hfa Aerosol Inhaler
2 inh INHALATION R Q6HPRN PRN (Reason: sob)
bisacodyl 10 mg Suppository
10 mg [place] [id number] PRN (Reason: constipation) Qty: 50 0RF
gabapentin 300 mg Capsule
300 mg PO TID 30 Days Qty: 90 0RF
sennosides-docusate sodium 8.6-50 mg Tablet
1 tab PO BIDPRN PRN (Reason: constipation) Qty: 240 0RF
polyethylene glycol 3350 [HealthyLax] 17 gram Powder In Packet
17 g PO DAILYPRN PRN (Reason: constipation) Qty: 100 0RF
sennosides-docusate sodium 8.6-50 mg Tablet
1 tab-cap PO HS Qty: 60 0RF
lidocaine 5 % adhesive patch,medicated
1 patch topical DAILY 30 Days Qty: 30 0RF
morphine 30 mg tablet extended release
30 mg PO Q12H Qty: 20 0RF
latanoprost 0.005 % Drops
1 drp BOTH EYES HS
atorvastatin 80 mg Tablet
80 mg PO QPM
brinzolamide 1 % Drops,Suspension
1 drp RIGHT EYE BID
psyllium Packet
1 packet PO DAILY
magnesium hydroxide [Milk of Magnesia] 400 mg/5 mL Suspension
30 ml PO HSPRN PRN (Reason: if no bm x 2 days)
bisacodyl [Dulcolax (bisacodyl)] 10 mg Suppository
10 mg [place] DAILYPRN PRN (Reason: if no bm x 3 days)
pantoprazole 40 mg Tablet,Delayed Release (Dr/Ec)
40 mg PO DAILY
lisinopril 10 mg Tablet
10 mg PO DAILY
Fleet Enema 19-7 gram/118 mL Enema
118 ml [place] DAILYPRN PRN (Reason: if no bm x 4 days)
docusate sodium 100 mg Capsule
200 mg PO HS
albuterol sulfate 90 mcg/actuation Hfa Aerosol Inhaler
1 puff INHALATION R Q6HPRN PRN (Reason: sob)
oxycodone 5 mg Tablet
5 mg PO Q6HPRN PRN (Reason: moderate pain)
acetaminophen [Tylenol Extra Strength] 500 mg tablet
1,000 mg PO Q8HPRN PRN (Reason: mild pain)
oxycodone 5 mg tablet
10 mg PO Q6HPRN PRN (Reason: severe pain)
Striverdi Respimat 2.5 mcg/actuation mist
2 puff inhalation R HS
Referrals:
Tyron Quarles III, MD [Active] -
Jimenez Fitzpatrick MD [Family Provider] -
Activity Restrictions/Additional Instructions:
Please return for any worsening symptoms.
You may return at any time if you have further concerns.
As we discussed, there was no blood clot visualized. However, the radiologist indicated that the lymph nodes in your chest are pressing on some of the veins which are slowing the blood flow back to your heart. I spoke to the vascular surgeon who
suggested that you follow-up with the radiation oncologist first to see if you are a candidate for radiation. The vascular surgeon is happy to see you to discuss surgical options if you are not a radiation candidate.
Thank you for choosing [facility].
Interventions
Interventions:
*Risk Screen - Suicide Last Done: 10/27/24 13:50
*General Assessment Last Done: 10/27/24 13:50
*ED COVID-19 Vaccine History Last Done: 10/27/24 13:50
ED- Cardiac Assessment Last Done: 10/27/24 15:03
ED- Pulmonary Assessment Last Done: 10/27/24 15:03
ED-Peripheral Vascular Assessment Last Done: 10/27/24 15:03
ED-Skin Assessment Last Done: 10/27/24 15:03
Discharge Date and Time
Print Language: MACEDONIAN
[2024-10-27 14:39] LABS: % Basophils 0.2 % (0-2); % Eosinophils 0.2 % (0-6); % Immature Granulocytes 0.4 % (0-0.5); % Lymphocytes 4.2 % (20.5-51.1); % Monocytes 12.8 % (1.7-9.3); % Neutrophils 82.2 % (42.2-75.2); Absolute Lymphocytes 0.3 10^3/uL (1.2-3.4); Absolute Neutrophils 6.6 10^3/uL (1.4-6.5); Hematocrit 30.9 % (39.0-52.0); Hemoglobin 9.9 g/dL (13.0-18.0); Mean Corpuscular Volume 90.6 fL (80.0-94.0); Mean Platelet Volume 9.6 fL (7.4-10.4); Nucleated Red Blood Cells % 0 % (-); Platelet Count 280 10^3/uL (130-400); Red Blood Cell Count 3.41 10^6/uL (4.70-6.10); Red Cell Dist. Width 16.7 % (11.5-14.5); White Blood Cell Count 8.1 10^3/uL (4.8-10.8)
[2024-10-27 14:57] LABS: INR 1.48; PT 18.2 Sec (11.4-14.6)
[2024-10-27 14:58] LABS: APTT 40.2 Sec (23.4-35.0)
[2024-10-27 14:59] LABS: Albumin 3.2 g/dl (3.5-5.0); Carbon Dioxide 31 mmol/L (22-30); Chloride 98 mmol/L (98-107); Estimated Creatinine Clearance 89 ml/min; Total Protein 5.9 g/dl (6.3-8.2); eGFR > 60.00
[2024-10-27 15:09] LABS: Alkaline Phosphatase 223 U/L (38-126); Blood Urea Nitrogen 23 mg/dl (9-20); Glucose 192 mg/dl (70-99); Potassium 4.8 mmol/L (3.5-5.1); Sodium 134 mmol/L (135-145)
[2024-10-27 15:10] LABS: ALT (SGPT) 116 U/L (0-50); AST (SGOT) 89 U/L (17-59); Calcium 8.7 mg/dl (8.4-10.2); Total Bilirubin 0.7 mg/dl (0.2-1.3)
[2024-10-27] MEDS: DILAUDID 1 MG IV ×3 (15:16→19:17)
[2024-10-27] MEDS: CARDIZEM 10 MG IV ×2 (15:46→17:02)
[2024-10-27] MEDS: NSS 1000 IV (16:20)
== END 2024-10-27 19:30 | disposition home or self-care (01) ==
LOC: EMR 13:35
PROVIDERS: EMERGENCY PHYSICIAN Student in an Organized Health Care Education/Training Program; FAMILY PHYSICIAN Family Medicine
DX: I87.1 Compression of vein (principal); M79.601 Pain in right arm; M25.511 Pain in right shoulder; R07.9 Chest pain, unspecified; I10 Essential (primary) hypertension; K57.92 Diverticulitis of intestine, part unspecified, without perforation or abscess without bleeding; I48.91 Unspecified atrial fibrillation; I48.92 Unspecified atrial flutter; Z85.118 Personal history of other malignant neoplasm of bronchus and lung; C79.9 Secondary malignant neoplasm of unspecified site; F17.200 Nicotine dependence, unspecified, uncomplicated; Z79.01 Long term (current) use of anticoagulants
CPT/HCPCS: 99284; 96374; 96375; 96361; 96376 ×3; 71275; 80053; 85025; 85610; 85730; 93005; Q9967

== ENCOUNTER 2024-11-13 15:00 | Outpatient (RCR) | payer MEDICARE, OTHER, SELFPAY | END 2024-11-13 23:59 | disposition home or self-care (01) | LOC: RPT 15:00 | PROVIDERS: ATTENDING PHYSICIAN Nurse Practitioner Family; FAMILY PHYSICIAN Family Medicine | DX: R53.81 Other malaise; R26.2 Difficulty in walking, not elsewhere classified; M62.81 Muscle weakness (generalized); Z73.6 Limitation of activities due to disability; M25.551 Pain in right hip; R26.89 Other abnormalities of gait and mobility; C34.90 Malignant neoplasm of unspecified part of unspecified bronchus or lung; C79.9 Secondary malignant neoplasm of unspecified site; C79.51 Secondary malignant neoplasm of bone | CPT/HCPCS: 97110; 97112; 97116; 97530 ==

== ENCOUNTER 2024-11-18 02:27 | Inpatient (IN) | payer MEDICARE, OTHER, SELFPAY ==
[2024-11-17 20:13] VITALS: BP 110/59
[2024-11-17 20:55] LABS: % Basophils 0.2 % (0-2); % Eosinophils 0.9 % (0-6); % Immature Granulocytes 0.5 % (0-0.5); % Monocytes 12.4 % (1.7-9.3); Absolute Eosinophils 0.1 10^3/uL (0-0.7); Absolute Lymphocytes 0.2 10^3/uL (1.2-3.4); Absolute Monocytes 0.7 10^3/uL (0.1-0.6); Absolute Neutrophils 4.6 10^3/uL (1.4-6.5); Hemoglobin 10.4 g/dL (13.0-18.0); Mean Corp Hgb Conc. 32.5 g/dL (33.0-37.0); Mean Corpuscular Hgb 29.6 pg (27.0-31.0); Mean Corpuscular Volume 91.2 fL (80.0-94.0); Mean Platelet Volume 9.5 fL (7.4-10.4); Nucleated Red Blood Cells % 0 % (-); Platelet Count 216 10^3/uL (130-400); Red Blood Cell Count 3.51 10^6/uL (4.70-6.10); Red Cell Dist. Width 17.6 % (11.5-14.5); White Blood Cell Count 5.6 10^3/uL (4.8-10.8)
[2024-11-17 21:17] LABS: NT-proBNP 3960 pg/ml; Troponin I < 0.012 ng/ml
[2024-11-17 21:18] LABS: ALT (SGPT) 39 U/L (0-50); AST (SGOT) 39 U/L (17-59); Alkaline Phosphatase 180 U/L (38-126); Blood Urea Nitrogen 20 mg/dl (9-20); Calcium 8.2 mg/dl (8.4-10.2); Carbon Dioxide 26 mmol/L (22-30); Chloride 97 mmol/L (98-107); Glucose 167 mg/dl (70-99); Potassium 4.5 mmol/L (3.5-5.1); Sodium 132 mmol/L (135-145); Total Bilirubin 0.5 mg/dl (0.2-1.3); Total Protein 5.5 g/dl (6.3-8.2); eGFR > 60.00
[2024-11-17 22:11] VITALS: BP 111/59
[2024-11-17 22:37] VITALS: BP 111/59
--- NOTE | 2024-11-17 22:39 | ED.GENMED ---
History of Present Illness
General
Chief Complaint: Breathing Problem
Source: patient, spouse and family
Exam Limitations: none
Time Seen by Provider: 11/17/24 22:02
Nursing documentation reviewed up to this point in time: agreed with
History of Present Illness
History of Present Illness:
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
this evening. Significant shortness of breath with exertion some mild shortness of breath at rest also some right-sided chest achiness.
Past History
Past History
ED Past Medical History: HTN and Other (Diverticulitis)
ED Past Surgical History: Appendectomy, Orthopedic (Wrist surgery) and Tonsilectomy
Social History
Tobacco: Smoker
Alcohol: Occasional
Drug: None
Personal:
Living: with family
Employment: Employed
Review of Systems
Review of Systems
Allergies reviewed?: Yes
All Other Systems: ROS reviewed and negative except as documented in HPI and ROS
Phy Exam
Physical Exam
Physical Exam:
GENERAL: Alert , in no apparent distress
EYE: pupils equal and reactive
NECK: Supple, no significant adenopathy.
ENT: o/p clr, mmm.
CARDIAC: Regular rate and rhythm .
LUNGS: Clear breath sounds bilaterally, no acute respiratory distress, no wheezes/rales/rhonchi
ABDOMEN: Soft, without focal tenderness, no r/g, no cvat
NEUROLOGICAL: Alert and oriented, no focal neuro deficits
SKIN: Warm and dry, skin intact.
MUSCULOSKELETAL: +2 pitting edema to the legs bilateral from the knees distally also swelling to the hands bilaterally., well perfused.
PSYCH: Normal and appropriate interaction.
Scores
Heart Failure Risk
Heart Failure Risk Score: Not Applicable
Course
Orders/Labs/Results
Orders:
Orders
04/28/25 20:16
Electrocardiogram (*1) Urgent
Reason for Study: Shortness of Breath
EKG- Treatment ONCE
11/17/24 20:46
Complete Blood Count/With Diff Urgent
Comprehensive Metabolic Panel Urgent
Magnesium Urgent
NT-proBNP Urgent
TSH Reflex To Free T4 Urgent
Comment: ADD ON
Troponin I Urgent
11/17/24 22:07
Chest [CR Chest - 2 Views ] Urgent
Comment:
Reason For Exam: cp
11/17/24 23:57
Furosemide [Lasix] 40 mg IV NOW STA
Oxycodone [Roxicodone] 5 mg PO NOW STA
11/17/24 23:58
Add On- LAB Urgent
Tests Added?: tsh free t4 magnesium level
11/18/24 01:57
Admit/Transfer Patient As Directed
Co-Sign Provider:
Level of Care: Inpatient admission
Assign to:: Telemetry
Physician / Group: hospitalist
Diagnosis: CHF exacerbation
Reason for Telemetry: Subacute Heart Failure
Date to Stop Telemetry: 11/20/24
Time to Stop Telemetry: 11:00
Reason for Hospitalization: subacute heart failure
Expected length of stay greater than two midnights?: Yes
ELOS- Estimated Length of Stay in days: 2
I certify the patient meets the requirements for IP care: Yes
PRN Pain Medication Management As Directed
May give lesser potent ordered pain med per pt: Yes
preference::
Protocol:: Medication orders for pain may be administered in a
manner that supports deferring to patient preference
when the pt is:
- Requesting an ordered lesser potent pain medication.
Least to most potent pain medications are defined
as: acetaminophen < NSAID < tramadol < opioids
(morphine, oxycodone, hydromorphone).
- Requesting a lesser dose of the same medication IF
ORDERED.
- Requesting a less intrusive route of administration
if both routes are prescribed by the provider (PO <
IV).
11/18/24 01:59
Code Status As Directed
Resuscitation Status: Do not resuscitate
Reached after discussion with pt or family/Healthcare POA: Yes
11/18/24 02:00
DNR Bracelet Application ONCE
11/18/24 02:42
Albuterol [ProAIR HFA INHALER] 1 puff INH R Q6HPRN PRN
Bisacodyl [Dulcolax] 10 mg RECTAL DAILYPRN PRN
Phosphate Enema [Fleet Phosphate Enema-Adult] 118 ml RECTAL DAILYPRN PRN
Polyethylene Glycol Powder [Miralax] 17 grams PO DAILYPRN PRN
11/18/24 02:42
CARDIOLOGY CONSULT Routine
Consulting Provider: Dung Solis
Was physician already notified: No
Reason for consult: vol overload, chf
Consult Notification Routine
Specialty to Notify: Cardiology
HF DIETARY CONSULT Routine
HF EDUCATOR CONSULT Routine
Comment:
VTE Contraindication Routine
VTE Mechanical Device Contraindication: Medical Contraindication
Pharmocologic Contraindication: Medical Contraindication
Activity As Directed
Activity Level: With Assistance
Fentanyl Patch Confirmation BID@0700,1900
Intake/ Output As Directed
Frequency: Per unit guidelines
Patient Education As Directed
Type: CHF folder
Comment: give on admission. Document in Interdisciplinary Education record
Sleep Apnea Assessment by RN As Directed
Comment:
Physician Instructions:
Vital Signs As Directed
Frequency: Other
Additional Instructions:: Q12 or per unit guidelines if more frequent.
Weight As Directed
Frequency: Daily
Type of Scale: Standing Scale
Comment: Daily morning weight. If unable to stand, use balanced bed scale.
Weight As Directed
Frequency: Once
Type of Scale: Standing Scale
Comment: Upon Admission. If unable to stand, use balanced bed scale.
Pulse Ox/cont/shift [RESP] Routine
Quantity: 1
Special Instructions: Daily pulse oximetry at rest. If greater than 92% at rest also obtain pulse oximetry
while ambulating as tolerated.
11/18/24 Breakfast
Cholesterol Lowering
At Your Request: Full Participation
Does patient need a safe tray?: No
Cholesterol Lowering: Sodium, 2 Gram
Oxycodone [Roxicodone] 10 mg PO Q6
11/18/24 06:22
Basic Metabolic Panel IN AM
Cardiovascular Evaluation IN AM
Magnesium IN AM
11/18/24 08:00
Apixaban [Eliquis] 5 mg PO BID
FentaNYL 50 MCG/HR PATCH [Duragesic 50 Mcg/Hr Patch] 1 patch TRANSDERM Q72H
Furosemide [Lasix] 40 mg IV BID AT 0800,1600
Gabapentin [Neurontin] 300 mg PO BID
Magnesium l-Lactate [Mag-Tab Sr] 168 mg PO DAILY
REMOVE fentaNYL PATCH [Remove Duragesic Patch] 1 patch REMOVE Q72H
Ramipril [Altace] 5 mg PO DAILY
11/18/24 10:00
Psyllium [Metamucil, Konsyl] 1 packet PO DAILY@1000
11/18/24 17:00
Metoprolol Xl [Toprol Xl] 12.5 mg PO DAILY@1700
Rosuvastatin Calcium [Crestor] 20 mg PO DAILY@1700
11/18/24 20:00
Olodaterol HCl [Striverdi Respimat] 2 puff INH R QPM
11/18/24 22:00
Brinzolamide/Brimonidine Tart [Simbrinza 1%-0.2% Ophth Susp] 1 drop RIGHT EYE HS
Docusate W/Senna [Senokot-S] 2 tablet PO HS
Latanoprost [Xalatan Ophthalmic Solution] 1 drop BOTH EYES HS
11/19/24 06:00
Basic Metabolic Panel IN AM
11/20/24 06:00
Basic Metabolic Panel IN AM
11/20/24 11:00
DC Protocol for Telemetry ONCE
Abnormal Lab Results
11/17/24
20:46
RBC 3.51 L 10^6/uL
(4.70-6.10)
Hgb 10.4 L g/dL
(13.0-18.0)
Hct 32.0 L %
(39.0-52.0)
MCHC 32.5 L g/dL
(33.0-37.0)
RDW 17.6 H %
(11.5-14.5)
Absolute Lymphs (auto) 0.2 L 10^3/uL
(1.2-3.4)
Absolute Monos (auto) 0.7 H 10^3/uL
(0.1-0.6)
Neutrophils % 82.0 H %
(42.2-75.2)
Lymphocytes % 4.0 L %
(20.5-51.1)
Monocytes % 12.4 H %
(1.7-9.3)
Sodium 132 L mmol/L
(135-145)
Chloride 97 L mmol/L
(98-107)
Creatinine 0.6 L mg/dL
(0.7-1.3)
Glucose 167 H mg/dl
(70-99)
Calcium 8.2 L mg/dl
(8.4-10.2)
Alkaline Phosphatase 180 H U/L
(38-126)
Total Protein 5.5 L g/dl
(6.3-8.2)
Albumin 3.0 L g/dl
(3.5-5.0)
11/17/24 20:46
11/17/24 20:46
Vital Signs
Initial and Last Documented VS:
Initial Vital Signs
Temp Pulse Resp BP Pulse Ox
97.7 F 99 20 110/59 96
11/17/24 20:13 11/17/24 20:13 11/17/24 20:13 11/17/24 20:13 11/17/24 20:13
Last Documented Vital Signs
Temp Pulse Resp BP Pulse Ox
98.6 F 76 14 95/47 95
11/18/24 07:51 11/18/24 09:00 11/18/24 09:00 11/18/24 07:51 11/18/24 07:51
MDM/Problems Addressed
MDM/Problems Addressed:
79-year-old male presenting to the today with concern of generalized shortness of breath some right-sided chest pain worsening this evening significant shortness of breath with light exertion. Does have a history of lung cancer. Is on Eliquis at
baseline for atrial fibrillation. On arrival here heart rate in the 90s pulse ox in the mid 90s. Claims that he is for the most part comfortable when sitting still but with light exertion feels very short of breath. Labs were obtained that showed
significantly elevated BNP of 4000 troponin negative EKG without emergent findings. Chest x-ray without significant emergent changes. Patient claims that he has been gaining weight despite not significant increase in eating. Concern for
increasing fluid overload. Patient is not on diuretic at baseline plan to treat with diuresis and admission for further monitoring and treatment.
*Critical Care Note
Total Time (30-74mins, 75-104mins- exclusive of procedures): Not Applicable
ED Attending Note
-
Portions of this chart may have been created with voice recognition software.� Occasional wrong word or��sound alike� substitutions may have occurred due to the inherent limitations of voice recognition software.
Discharge Plan
Departure
Patient Disposition: Admit
Date of Disposition: 11/18/24
Time of Disposition: 00:39
Admit to: Med/Surg
Admit to doctor: Dylon
Presentation/result/management discussed w/ accepting MD/DO: Hospitalist
Patient with high blood pressure during this ER visit?: No
Condition: Fair
Covid-19: Not Applicable
Discharge Problem:
Heart failure, Edema
Interventions
Interventions:
*Risk Screen - Suicide Last Done: 11/17/24 20:15
*General Assessment Last Done: 11/17/24 20:15
*Neglect/Abuse Screening Last Done: 11/17/24 20:15
*ED- Fall Risk Assessment Last Done: 11/18/24 07:10
*ED COVID-19 Vaccine History Last Done: 11/17/24 20:15
*Nursing Disposition Last Done: 11/18/24 07:10
ED- Cardiac Assessment Last Done: 11/17/24 23:20
ED- Pulmonary Assessment Last Done: 11/17/24 23:20
[2024-11-17 23:39] VITALS: BP 123/68
[2024-11-17 23:41] VITALS: BMI 22.2
[2024-11-18] VITALS (24 sets, daily range): BP systolic 80–117; BP diastolic 47–90; PULSE 75–81; O2SAT 94; BMI 22.2; BMI 20.7
[2024-11-18] MEDS: ROXICODONE 5 MG PO ×3 (00:22→23:46)
[2024-11-18 00:40] LABS: Magnesium 2.1 mg/dl (1.6-2.3)
[2024-11-18 01:09] LABS: TSH Reflex To Free T4 4.12 uIU/ml (0.47-4.68)
[2024-11-18] MEDS: LASIX 40 MG IV ×3 (01:10→16:21)
--- NOTE | 2024-11-18 01:47 | HPS.HSE ---
Family Physician
-
Family Physician: Rere Sandoval,
Chief Complaint
-
Shortness of breath
History of Present Illness
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
the emergency department with 2 days of worsening shortness of breath.
Patient reports that he has had shortness of breath for a long time but over the last 2 days family reports that he has shortness of breath at rest. Usually has dyspnea on exertion. He states that in the last 2 days he has more of paroxysmal
motional dyspnea as well. He denies orthopnea. Due to the SVC syndrome he has swelling of the bilateral upper extremities most notable on the right upper extremity. No DVT. He is on anticoagulation for atrial fibrillation.
Patient denies recent chest pain. He denies palpitations lightheadedness or dizziness. Reports increasing lower extremity swelling and significant weight gain over the last few weeks with a few pounds in the last few days.
He denies prior history of CAD. He denies known history of CHF.
In the emergency department ED was afebrile, blood pressure was 117/90 with a pulse of 88 satting 98% on room air. CBC was unremarkable. Electrolytes BUN/creatinine were normal.
ECG shows sinus rhythm with right bundle at rate of 91 which is similar to prior except it was previously A-fib. Troponin was negative. BNP was more elevated to 3905 baseline around 1000.
Chest x-ray shows cardiomegaly under his right diaphragm which is similar to previous. He had a recent CT angio of the chest on 10 27 which showed improving pulmonary metastases.
Medical History
Past Medical History
Past Medical History: Reports Other
Additional Past Medical History:
atrial fib
lung ca
dysphagia
htn
copd
hld
bph
Past Surgical History: Reports Other
Additional Past Surgical History:
appendectomy
hernia repair
left wrist carpectomy
b/l cataract surgery
Social History
Tobacco: Former Smoker
Alcohol: None
Drug: None
Personal:
Family History
Family History: Not pertinent
Allergies / Home Medications
Allergies reflects when Allergies were last updated in [facility].
Home Medications with original date entered in [facility]
Allergy/Medication List:
Allergies
Allergy/AdvReac Type Severity Reaction Status Date / Time
adhesive Allergy SEE COMMENT Verified 10/27/24 13:54
Hayfever Allergy Sneezing, Uncoded 10/27/24 13:54
watery/itchy
eyes,
stuffy nose
Home Medications
brinzolamide 1 %-brimonidine 0.2 % eye drops,suspension (Simbrinza) 1 drp RIGHT EYE HS Eye Condition 04/09/23
qvqkudfwtvuo-orhgklcm-ipbdki tablet 1 tab PO DAILY Supplement 04/09/23
travoprost 0.004 % eye drops 1 drp BOTH EYES HS Eye Condition 04/09/23
umeclidinium 62.5 mcg-vilanterol 25 mcg/actuation powdr for inhalation (Anoro Ellipta) 1 inh inhalation R QPM Lung/Breathing Issues 04/09/23
apixaban 5 mg tablet (Eliquis) 5 mg PO BID #60 tabs 04/10/23
clobetasol 0.05 % topical cream 1 applic topical DAILYPRN PRN itching 05/02/24
polyethylene glycol 3350 17 gram oral powder packet (HealthyLax) 17 g PO DAILYPRN PRN constipation #100 ea 05/04/24
albuterol sulfate 90 mcg/actuation aerosol inhaler 1 puff inhalation R Q6HPRN PRN sob 05/14/24
bisacodyl 10 mg rectal suppository (Dulcolax (bisacodyl)) 10 mg VT DAILYPRN PRN if no bm x 3 days 05/14/24
latanoprost 0.005 % eye drops 1 drp BOTH EYES HS 05/14/24
oxycodone 5 mg tablet 10 mg PO .Q 4 TO 6 HR PRN severe pain 05/14/24
sodium phosphates 19 gram-7 gram/118 mL enema (Fleet Enema) 118 ml VT DAILYPRN PRN if no bm x 4 days 05/14/24
Calcium 500mg With D3 25 Mcg 2 tab PO DAILY 11/18/24
Keytruda 1 dose IV .Q3WK 11/18/24
denosumab 120 mg/1.7 mL (70 mg/mL) subcutaneous solution (Xgeva) 120 mg SC .Q6WK 11/18/24
fentanyl 50 mcg/hr transdermal patch 1 patch transdermal Q72H 11/18/24
gabapentin 300 mg capsule 300 mg PO BID 11/18/24
magnesium chloride 71.5 mg (magnesium chloride) tablet,delayed release (Slow-Mag) 143 mg PO DAILY 11/18/24
metoprolol succinate 25 mg capsule sprinkle, ext. release 24 hr 12.5 mg PO . DINNER 11/18/24
psyllium 1 packet PO DAILY 11/18/24
ramipril 5 mg tablet 5 mg PO DAILY 11/18/24
rosuvastatin 20 mg tablet 20 mg PO .DINNER 11/18/24
sennosides 8.6 mg-docusate sodium 50 mg tablet (Senokot-S) 2 tab-cap PO HS 11/18/24
Review of Systems
-
History Source: Patient
Constitutional: Reports Weight Gain
EENT: Reports No Symptoms
Respiratory: Reports Trouble Breathing
Cardiac: Reports No Symptoms
Abdomen/GI: Reports No Symptoms
: Reports No Symptoms
Musculoskeletal: Reports Edema
Skin: Reports No Symptoms
Neurological: Reports No Symptoms
Endocrine: Reports No Symptoms
Hematologic/Lymphatic: Reports No Symptoms
Psych: Reports No Symptoms
Physical Exam
Vital Signs
Vital Signs
Temp Pulse Resp BP Pulse Ox
98.7 F 87 25 108/67 96
11/18/24 01:00 11/18/24 01:17 11/18/24 01:17 11/18/24 01:17 11/18/24 01:17
Physical Exam
General: Well Developed, Comfortable and Conversant
HEENT: NormoCephalic, Anicteric, Moist mucous membranes and Atraumatic
Respiratory: Clear
Cardiac: S1/S2 and Regular Rhythm
Breast: Deferred by me
GI: Soft, Non Tender, Non Distended and Normal Bowel Sounds
Rectal: Deferred by Provider
Genito-urinary: Deferred by me
Musculoskeletal: No Clubbing, No Cyanosis, Edema, Left Upper Extremity, Edema, Right Upper Extremity, Edema, Left Lower Extremity and Edema, Right Lower Extremity
Skin: Warm
Neuro: AO x 3 and Nonfocal/grossly intact
Hematologic/Lymphatic: No Lymphadenopathy
Psych: Calm
Laboratory Results
-
11/17/24 20:46
11/17/24 20:46
Laboratory Results
Total Bilirubin 0.5 mg/dl (0.2-1.3) 11/17/24 20:46
AST 39 U/L (17-59) 11/17/24 20:46
ALT 39 U/L (0-50) 11/17/24 20:46
Alkaline Phosphatase 180 U/L (38-126) H 11/17/24 20:46
Troponin I < 0.012 ng/ml 11/17/24 20:46
Data Reviewed
-
Diagnostic Radiology: Image Personally Visualized and interpreted
Medical Tests (Nuc Med, Echo, EKG etc): Image Personally Visualized and interpreted
Lab Data: Labs Reviewed by me
Old Records: Reviewed
Impression/Plan
-
IMPRESSION:
79-year-old with metastatic lung cancer on Keytruda and currently on radiation treatment for SVC syndrome with facial swelling and bilateral upper extremity swelling who comes into the emergency department with more recent dyspnea on exertion
worsening shortness of breath and profound nocturnal dyspnea, has increased bilateral lower extremity edema and increased elevated BNP. Pictures were more consistent with diastolic dysfunction and heart failure with preserved EF. His last echo in
July shows a EF of 60 to 65%, stage I diastolic dysfunction, normal size and function with mild concentric LVH.
PLAN:
1. CHF - Suspect new onset CHF or acute exacerbation of previously mild diastolic CHF. Unlikely due to only the SVC syndrome.
- admit to telemetry
- fluid restriction
- start on lasix 40mg iv bid for now
- repeat echo
- daily weights and i/os
- continue statin
- cardiology consultation
-
2. AFIb - rate controlled
- continue eliquis
- continue metoprolol hs
3. Lung Ca
- continue palliative measures
DVT PPX - on eliquis
Code status- DNR
[2024-11-18] MEDS: FLUSH (NSS) 1 FLUSH IV (06:17)
[2024-11-18] MEDS: ROXICODONE PO ×3 (06:24→18:09)
[2024-11-18 06:54] LABS: Blood Urea Nitrogen 19 mg/dl (9-20); Carbon Dioxide 29 mmol/L (22-30); Chloride 99 mmol/L (98-107); Estimated Creatinine Clearance 91 ml/min; Glucose 95 mg/dl (70-99); HDL Cholesterol 40 mg/dl; LDL Cholesterol, Calculated 51 mg/dl; Magnesium 2.1 mg/dl (1.6-2.3); Potassium 4.1 mmol/L (3.5-5.1); Sodium 133 mmol/L (135-145); Total Cholesterol 100 mg/dl (50-199); Triglyceride 46 mg/dl (10-149); Very Low Density Lipoprotein 9 mg/dl (0-30); eGFR > 60.00
--- NOTE | 2024-11-18 08:09 | CON.CAR ---
Addendum entered and electronically signed by Robel Sanches DO 11/18/24 13:57:
I saw and examined the patient.
The Adult And Pediatric Neurologist's note was reviewed and I agree with the note.
Comment:
Plan:
Patient presents with several weeks of progressive dyspnea and lower extremity edema with associated weight gain. Found to have evidence of acute CHF, diastolic
Echo today showed preserved EF. Trop negative and pbNP 3900. Chest x-ray with evidence of small left pleural effusion.
Continue diuresis with IV Lasix.
Was not on diuretic prior to admission
He has been pushing oral hydration at recommendation of his oncologist due to tendency towards dehydration.
Consider oncology consullt to determine if oncologic regimen is contributing to acute heart failure.
Was due for next dose of Keytruda in a.m.
HF education
Remains sinus with hx of PAFib. Chronically on Eliquis
Discussed with at bedside
- d/w patient and at bedside
Original Note:
Consultation
Consultation Request
Date/Time Consultation Performed: 11/18/24
Requesting Provider: Dr. Osborne
Performing Provider: Meliza Jarquin PA-C for Dr. Sanches
Reason for Consultation: CHF
Medical History
-
Chief Complaint: SOB
History of Present Illness:
Patient is a 79-year-old male with past medical history significant for PAF, hypertension, hyperlipidemia, coronary calcification on chest CT, COPD/emphysema, metastatic NSCLC s/p XRT currently on keytruda, SVC syndrome receiving radiation, thyroid
nodules, thoracic aortic aneurysm, diverticulitis with diverticular abscess and colon resection, ongoing nicotine/tobacco abuse who presents to emergency department due to swelling and dyspnea. He reports over the last 2 to 3 weeks he has noted
worsening dyspnea on exertion and approximate 10 pound weight gain. Last evening he noted shortness of breath even with rest prompting him to come to the ER for evaluation. He reports some right sided chest pressure associated with symptoms, which
he has had before. He is not on diuretic as an outpatient. He reports his appetite has been good, and his oncologist, Dr. Sandoval has recommended pushing oral hydration as he tends to be dehydrated. He states he finished SVC radiation 11/07/24. He
is due for his next dose of Keytruda 11/19/2024. proBNP 3960. Chest x-ray with new small pleural effusion, left and severe calcific atherosclerotic plaque in coronary arteries and thoracic aorta.
PMH:
Paroxysmal atrial fibrillation
Chronic OAC with eliquis
Hypertension
Hyperlipidemia
Bifascicular block
COPD/emphysema
Metastatic NSCLC s/p XRT, currently on keytruda
SVC syndrome, currently receiving radiation
Thyroid nodules
BPH
Thoracic aortic aneurysm 4.[address] in 2019
[address] calc[address] on CT of chest
Diverticulitis with diverticular abscess with colon resection
Chronic neck and back pain
Former alcoholic
Former tobacco use
Past Medical History
Past Medical History: Other (See HPI)
Past Surgical History: Appendectomy, Bowel Resection (diverticular abscess requiring colon resection), Orthopedic (right shoulder surgery, left wrist CTS,), Tonsilectomy and Other (right inguinal hernia repair, bilateral cataract extraction, )
Social History
Tobacco: Former Smoker
Alcohol: Former
Drug: None
Personal:
Living: With Family
Family History
Family History: Other (Father had hypertension, CLL, CAD/HF, stroke; mother had breast cancer, PE)
Allergies / Home Medications
Allergy/AdvReac Type Severity Reaction Status Date / Time
adhesive Allergy SEE COMMENT Verified 10/27/24 13:54
Hayfever Allergy Sneezing, Uncoded 10/27/24 13:54
watery/itchy
eyes,
stuffy nose
�Medication �Instructions �Recorded �Confirmed �Type
brinzolamide 1 %-brimonidine 0.2 % 1 drp RIGHT EYE HS Eye Condition 04/09/23 11/18/24 History
eye drops,suspension (Simbrinza)
anyeniocrcvb-tvjtokpb-ykokve tablet 1 tab PO DAILY Supplement 04/09/23 11/18/24 History
travoprost 0.004 % eye drops 1 drp BOTH EYES HS Eye Condition 04/09/23 11/18/24 History
umeclidinium 62.5 mcg-vilanterol 1 inh inhalation R QPM 04/09/23 11/18/24 History
25 mcg/actuation powdr for Lung/Breathing Issues
inhalation (Anoro Ellipta)
apixaban 5 mg tablet (Eliquis) 5 mg PO BID #60 tabs 04/10/23 11/18/24 Rx
clobetasol 0.05 % topical cream 1 applic topical DAILYPRN PRN 05/02/24 11/18/24 History
itching
polyethylene glycol 3350 17 gram 17 g PO DAILYPRN PRN constipation 05/04/24 11/18/24 Rx
oral powder packet (HealthyLax) #100 ea
albuterol sulfate 90 mcg/actuation 1 puff inhalation R Q6HPRN PRN sob 05/14/24 11/18/24 History
aerosol inhaler
bisacodyl 10 mg rectal suppository 10 mg MD DAILYPRN PRN if no bm x 3 05/14/24 11/18/24 History
(Dulcolax (bisacodyl)) days
latanoprost 0.005 % eye drops 1 drp BOTH EYES HS 05/14/24 11/18/24 History
oxycodone 5 mg tablet 10 mg PO .Q 4 TO 6 HR PRN severe 05/14/24 11/18/24 History
pain
sodium phosphates 19 gram-7 118 ml MD DAILYPRN PRN if no bm x 05/14/24 11/18/24 History
gram/118 mL enema (Fleet Enema) 4 days
Calcium 500mg With D3 25 Mcg 2 tab PO DAILY 11/18/24 11/18/24 History
Keytruda 1 dose IV .Q3WK 11/18/24 11/18/24 History
denosumab 120 mg/1.7 mL (70 mg/mL) 120 mg SC .Q6WK 11/18/24 11/18/24 History
subcutaneous solution (Xgeva)
fentanyl 50 mcg/hr transdermal 1 patch transdermal Q72H 11/18/24 11/18/24 History
patch
gabapentin 300 mg capsule 300 mg PO BID 11/18/24 11/18/24 History
magnesium chloride 71.5 mg 143 mg PO DAILY 11/18/24 11/18/24 History
(magnesium chloride)
tablet,delayed release (Slow-Mag)
metoprolol succinate 25 mg capsule 12.5 mg PO . DINNER 11/18/24 11/18/24 History
sprinkle, ext. release 24 hr
psyllium 1 packet PO DAILY 11/18/24 11/18/24 History
ramipril 5 mg tablet 5 mg PO DAILY 11/18/24 11/18/24 History
rosuvastatin 20 mg tablet 20 mg PO .DINNER 11/18/24 11/18/24 History
sennosides 8.6 mg-docusate sodium 2 tab-cap PO HS 11/18/24 11/18/24 History
50 mg tablet (Senokot-S)
Review of Systems
-
History Source: Patient and Family
All other systems: Negative unless noted
Physical Exam
Vital Signs
Temp Pulse Resp BP Pulse Ox
98.6 F 77 18 95/47 95
11/18/24 07:51 11/18/24 07:51 11/18/24 07:51 11/18/24 07:51 11/18/24 07:51
Lab Results
11/17/24 20:46
11/18/24 06:22
Troponin I < 0.012 ng/ml 11/17/24 20:46
Wdr-Y-Ryshappftqr Pept 3960 pg/ml 11/17/24 20:46
Physical Exam
General: No Apparent Distress and Comfortable
HEENT: Normocephalic, Anicteric and Moist Mucous Membranes
Respiratory: Crackles and Non Labored Respirations
Cardiac: S1/S2 and Regular Rhythm
GI: Soft, Non Tender, Non Distended and Normal Bowel Sounds
Musculoskeletal: No Clubbing, No Cyanosis and Edema (1+ of B/L LE)
Skin: Warm and Dry
Neuro: AO x 3
Impression / Plan
-
Primary Electronic System Engineer: Dr. Hailey Dempsey
Assessment:
Presentation with dyspnea, edema
Acute HFpEF
Paroxysmal atrial fibrillation
Chronic OAC with eliquis
Hypertension
Hyperlipidemia
Bifascicular block
COPD/emphysema
Metastatic NSCLC s/p XRT, currently on keytruda
SVC syndrome, currently receiving radiation
Thyroid nodules
BPH
Tobacco abuse
Thoracic aortic aneurysm 4.[address] in [address] on [address] of chest
Diverticulitis with diverticular abscess with colon resection
Chronic neck and back pain
Former alcoholic
DNR code status
ECHO 11/18/24: EF 55-60%, normal RWM, mild TR, trivial pericardial effusion, dilated aortic root
Plan:
- Patient presents with several weeks of progressive dyspnea and lower extremity edema with associated weight gain
- Found to have evidence of acute CHF, diastolic
- Echo this morning with preserved EF, normal regional wall motion. Troponin negative. proBNP 3900. Chest x-ray with evidence of small left pleural effusion. Continue diuresis with IV Lasix. Patient reports good urine output since receiving
dose this morning. Was not on diuretic prior to admission
- He has been pushing oral hydration at recommendation of his oncologist due to tendency towards dehydration. Will need to work collaboratively with oncology to determine best regimen to achieve euvolemic status
-Would consider oncology evaluation to determine if oncologic regimen is contributing to acute heart failure. Was due for next dose of Keytruda in a.m.
- CHF education
- In sinus rhythm by EKG. Follow on telemetry. Continue outpatient Eliquis, Toprol. Does have history of paroxysmal A-fib
- d/w patient and at bedside
Data Reviewed
-
EKG: Tracing Personally Visualized and interpreted
Radiology: Report Reviewed by me
Medical Tests (Nuc Med, Echo etc): Report Reviewed by me
Labs: Labs Reviewed by me
Old Records: Reviewed
[2024-11-18] MEDS: ELIQUIS 5 MG PO ×2 (08:20→20:01)
[2024-11-18] MEDS: NEURONTIN 300 MG PO ×2 (08:20→20:01)
[2024-11-18] MEDS: MAG-TAB SR 168 MG PO (08:20)
[2024-11-18] MEDS: ROXICODONE 10 MG PO (08:34)
[2024-11-18] MEDS: METAMUCIL, KONSYL 1 PACKET PO (08:35)
[2024-11-18] MEDS: ALTACE PO (09:25)
[2024-11-18] MEDS: DURAGESIC 50 MCG/HR PATCH 1 PATCH TRANSDERM (10:26)
--- NOTE | 2024-11-18 12:20 | CM ---
CM met with pt and spouse bedside
They reside with their adult son in a [place] with [address]
Pt notes indep with use of a WW, has a SPC as well
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
No longer drives
Pt currently attending outpt PT at
He is currently taking Keytruda and has completed round of radiation, no plans for more rounds at this time
Pt has hx at [facility]
Denies financial insecurities
PCP- Jimenez Fitzpatrick
Rx- Sadi
Discussion with nursing- weakness noted
PT eval requested TT/Dr Arredondo
Discharge Disposition- anticipate home with [facility] outpt, watch for VN or SNF needs
--- NOTE | 2024-11-18 13:18 | W.PN.HOSP.TC ---
Today's Communication/Plan
-
Continue IV Lasix
Consider SGLT2i
Trend BMP/I's and O's/weights
Telemetry
Assessment / Plan
Assessment / Plan
#Acute HFpEF
-Unclear etiology; echo without signs of infiltrative disease, valve insufficiency, or WMA
-Echocardiogram with LVEF 55%, mild TR, dilated aortic root but unchanged from previous
-Presented with dyspnea/orthopnea, leg edema for over 2 weeks; BNP >4000
-On arrival was started on IV Lasix 40 mg twice daily, edema improving and adequate UOP
-Warm and wet phenotype
-Cardiology following
Plan
-Continue IV Lasix 40 mg twice daily
-Consider SGLT2i for GDMT
-Monitor BMP, I's/O's, and daily weights
-Monitor on telemetry
-No added salt diet/fluid restriction
#Stage IV non-small cell lung cancer
#78-[id number] smoking history
#COPD/emphysema
-Right upper lung lesion, s/p XRT 2019; now on Keytruda
-Currently on Anora Ellipta for COPD maintenance
-Home regimen also includes denosumab
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
-Follows with radiation oncology
#AF/AFL
-Home medications include metoprolol succinate and Eliquis
-No history of ablations known; did have AVELINO cardioversion in 03/2023
-Heart rate currently WNL and regular
#Hypertension
-Home medications include metoprolol and ramipril
-No known history of hypertensive systemic disease
-BP currently well-controlled here
#HLD
-Home medications include Crestor, no known ASCVD history
#Chronic pain with opiate dependence
-Related to bone metastases and cancer related pain
-Home regimen includes fentanyl patch, oxycodone, gabapentin
DVT prophylaxis: Home Eliquis
Diet: Regular
CODE STATUS: DNR
Anticipated Discharge: 24 - 48 hours
Subjective/Interval History
-
Date of Service: November 18, 2024
Seen and examined at the bedside. No acute events reported overnight. AFVSS on room air
Per I's/O's is net -3300 mL since admission. Patient states his leg swelling is much improved. States his breathing is also improved
Denies any new complaints as of this
Objective Data
-
Labs:
Laboratory Results
11/18/24
06:22
Sodium 133 L
Potassium 4.1
Chloride 99
Carbon Dioxide 29
BUN 19
Creatinine 0.6 L
Glucose 95
Calcium 8.0 L
Vital Signs:
Vital Signs
Temp Pulse Resp BP Pulse Ox
98.0 F 78 22 99/57 94
11/18/24 11:07 11/18/24 11:07 11/18/24 11:07 11/18/24 11:07 11/18/24 11:07
I&O
11/17/24 11/18/24 11/19/24
06:59 06:59 06:59
Output Total 1974 1400 / 1400
Balance -1974 -1974 -1399 / -1400
Review of Systems
-
History Source: Patient
All other systems: Reviewed and negative
Physical Exam
-
General: Well Developed, Well Nourished, No Apparent Distress, Comfortable and Appears Chronically Ill
HEENT: Normocephalic, Atraumatic and Moist Mucous Membranes
Respiratory: Rales (bibasilar) and Non Labored Respirations; Negative Accessory Resp Muscle Use
Cardiac: Regular Rhythm and S1/S2; Negative Murmur, Rub or Gallop
GI: Soft, Nontender, Nondistended and Normal Bowel Sounds
Musculoskeletal: No Clubbing, No Cyanosis and No Edema
Skin: Warm, Dry and Normal Turgor; Negative Rash
Neuro: AO x 3 and Nonfocal/Grossly Intact; Negative Tremors
Psych: Calm
Data Reviewed
-
Labs: Labs Reviewed by me and Discussed with Patient
--- NOTE | 2024-11-18 14:11 | CON.ONC ---
Consultation
-
Date Consultation Requested: 11/18/24
Date Consultation Performed: 11/18/24
Performing Provider: Dr. Jaramillo/Dr. Stinson
Impression
Impression
Metastatic lung cancer
Bone metastasis, chronic pain
SVC syndrome
H/o tobacco abuse and daily alcohol use (stopped 1 year ago)
Acute heart failure
Atrial fibrillation
Hypertension
H/o central/obstructive sleep apnea
BPH, possible urinary retention
Plan
Plan
Continue medical management per primary team and cardiology. Do not suspect keytruda is contributing to presentation as he has tolerated it well since march and is not associated with heart failure. Recommend outpatient follow up, no changes to
his cancer treatment at this time. His next dose is now scheduled for 11/26/24, discharge tab updated. Oncology will sign off, please recall with questions.
Patient History
History of Present Illness
79yo M with H metastatic lung cancer on keytruda s/p radiation therapy, COPD, SVC syndrome, PAF, htn who presents to ED for worsening shortness of breath. He has had shortness of breath for years from COPD; baseline includes dyspnea at rest and
orthopnea, chronic productive cough with clear/colorless sputum- unchanged for several months. Over the past few days, he reports significant increase in the severity of shortness of breath and felt like he needed supplemental oxygen, prompting him
to present to ED. Reports extremity swelling ongoing for several weeks, slightly improved today after receiving lasix in ED. He was admitted for acute heart failure. Oncology consulted for concern of chemotherapy contributing to presentation.
In terms of his cancer history, he was found to have lung mass in right upper lobe on screening CT, and bronchoscopy/biopsy 01/2020 confirmed invasive adenocarcinoma. In 02/2024 L iliac crest biopsy confirmed metastatic disease. He has underwent
multiple rounds of radiation, and started on keytruda 03/2024 (next dose was planned for tomorrow). Has been tolerating keytruda well.
Past-Medical/Surgical History
metastatic lung cancer on keytruda s/p radiation, bone metastasis, chronic pain, COPD/emphysema, SVC syndrome, atrial fibrillation, htn, dysphagia (improved), h/o tobacco abuse (stopped 1 year ago), h/o daily alcohol use (stopped 1 year ago), BPH,
h/o central/obstructive sleep apnea and bibap noncompliance, thyroid nodule, thoracic aorta aneurysm, atherosclerosis
appendectomy 1960s, R inguinal hernia repair 2013, robotic sigmoid resection for abscess 09/2018, L inguinal hernia repair 12/2018, bilateral cataract
Patient Medication
�Medication �Instructions �Recorded �Confirmed �Last Taken �Type
brinzolamide 1 %-brimonidine 0.2 % 1 drp RIGHT EYE HS Eye Condition 04/09/23 11/18/24 05/06/24 History
eye drops,suspension (Simbrinza)
kbkhuqwgyjik-fwpujfbc-tatdex tablet 1 tab PO DAILY Supplement 04/09/23 11/18/24 03/17/24 History
travoprost 0.004 % eye drops 1 drp BOTH EYES HS Eye Condition 04/09/23 11/18/24 03/16/24 History
umeclidinium 62.5 mcg-vilanterol 1 inh inhalation R QPM 04/09/23 11/18/24 03/17/24 History
25 mcg/actuation powdr for Lung/Breathing Issues
inhalation (Anoro Ellipta)
apixaban 5 mg tablet (Eliquis) 5 mg PO BID #60 tabs 04/10/23 11/18/24 05/06/24 Rx
clobetasol 0.05 % topical cream 1 applic topical DAILYPRN PRN 05/02/24 11/18/24 Unknown History
itching
polyethylene glycol 3350 17 gram 17 g PO DAILYPRN PRN constipation 05/04/24 11/18/24 03/17/24 Rx
oral powder packet (HealthyLax) #100 ea
albuterol sulfate 90 mcg/actuation 1 puff inhalation R Q6HPRN PRN sob 05/14/24 11/18/24 Unknown History
aerosol inhaler
bisacodyl 10 mg rectal suppository [address] DAILYPRN PRN if no bm x 3 05/14/24 11/18/24 Unknown History
(Dulcolax (bisacodyl)) days
oxycodone 5 mg tablet 10 mg PO .Q 4 TO 6 HR PRN severe 05/14/24 11/18/24 Unknown History
pain
sodium phosphates 19 gram-[address] DAILYPRN PRN if no bm x 05/14/24 11/18/24 Unknown History
gram/118 mL enema (Fleet Enema) 4 days
Calcium 500mg With D3 25 Mcg 2 tab PO DAILY 11/18/24 11/18/24 Unknown History
Keytruda 1 dose IV .Q3WK 11/18/24 11/18/24 Unknown History
denosumab 120 mg/1.7 mL (70 mg/mL) 120 mg SC .Q6WK 11/18/24 11/18/24 Unknown History
subcutaneous solution (Xgeva)
fentanyl 50 mcg/hr transdermal 1 patch transdermal Q72H 11/18/24 11/18/24 Unknown History
patch
gabapentin 300 mg capsule 300 mg PO BID 11/18/24 11/18/24 Unknown History
levalbuterol tartrate 45 1 puff inhalation DAILY 11/18/24 11/18/24 2 Days Ago History
mcg/actuation aerosol inhaler ~11/16/24
magnesium chloride 71.5 mg 143 mg PO DAILY 11/18/24 11/18/24 Unknown History
(magnesium chloride)
tablet,delayed release (Slow-Mag)
metoprolol succinate 25 mg capsule 12.5 mg PO . DINNER 11/18/24 11/18/24 Unknown History
sprinkle, ext. release 24 hr
psyllium 1 packet PO DAILY 11/18/24 11/18/24 Unknown History
ramipril 5 mg tablet 5 mg PO DAILY 11/18/24 11/18/24 Unknown History
rosuvastatin 20 mg tablet 20 mg PO .DINNER 11/18/24 11/18/24 Unknown History
sennosides 8.6 mg-docusate sodium 2 tab-cap PO HS 11/18/24 11/18/24 Unknown History
50 mg tablet (Senokot-S)
Active Medications
Generic Name Dose Route Start Last Admin
Trade Name Freq PRN Reason Stop Dose Admin
Albuterol 1 puff 11/18/24 02:42
Albuterol Hfa [90 Mcg/Dose] Inhaler INH
R Q6HPRN PRN
sob
Protocol
Apixaban 5 mg 11/18/24 08:00 11/18/24 08:20
Apixaban (Eliquis) 5 Mg Tablet PO 12/16/24 07:59 5 mg
BID RAFAEL Administration
Bisacodyl 10 mg 11/18/24 02:42
Bisacodyl 10 Mg Rectal Suppository RECTAL 12/16/24 02:41
DAILYPRN PRN
if no bm x 3 days
Brinzolamide/Brimonidine Tartrate 1 drop 11/18/24 22:00
Brinzolamide 1%/Brimonidine 0.2% (Ophth Susp) 8 Ml Bottle RIGHT EYE 12/16/24 21:59
HS RAFAEL
Fentanyl 1 patch 11/18/24 08:00 11/18/24 10:26
Fentanyl 50 Mcg/Hr Patch TRANSDERM 12/02/24 07:59 1 patch
Q72H RAFAEL Administration
Furosemide 40 mg 11/18/24 08:00 11/18/24 08:22
Furosemide 40 Mg (10 Mg/Ml) 4 Ml Vial IV 12/16/24 07:59 40 mg
BID AT 0800,1600 RAFAEL Administration
Gabapentin 300 mg 11/18/24 08:00 11/18/24 08:20
Gabapentin 300 Mg Capsule PO 12/16/24 07:59 300 mg
BID RAFAEL Administration
Latanoprost 1 drop 11/18/24 22:00
Latanoprost 0.005% (Ophthalmic Solution) 2.5 Ml Bottle BOTH EYES 12/16/24 21:59
HS RAFAEL
Magnesium 168 mg 11/18/24 08:00 11/18/24 08:20
Magnesium Lactate 84 Mg Tablet PO 12/16/24 07:59 168 mg
DAILY RAFAEL Administration
Metoprolol Succinate 12.5 mg 11/18/24 17:00
Metoprolol 12.5 Mg Extended Release Dose (1/2 Of 25 Mg Xl Tablet) PO 12/16/24 16:59
DAILY@1700 RAFAEL
Olodaterol 2 puff 11/18/24 20:00
Olodaterol (Striverdi Respimat) 2.5 Mcg Inhaler INH 12/16/24 19:59
R QPM RAFAEL
Oxycodone HCl 10 mg 11/18/24 06:00 11/18/24 12:22
Oxycodone 5 Mg Regular Release Tablet PO 12/02/24 05:59 Not Given
Q6 RAFAEL
Patch Removal 1 patch 11/18/24 08:00 11/18/24 09:08
Remove Fentanyl Patch REMOVE 12/02/24 07:59 Not Given
Q72H RAFAEL
Polyethylene Glycol 17 grams 11/18/24 02:42
Polyethylene Glycol Powder 17 Grams Packet PO 12/16/24 02:41
DAILYPRN PRN
constipation
Psyllium Hydrophilic Mucilloid 1 packet 11/18/24 10:00 11/18/24 08:35
Psyllium Packet PO 12/16/24 09:59 1 packet
DAILY@1000 RAFAEL Administration
Ramipril 5 mg 11/18/24 08:00 11/18/24 09:25
Ramipril (Altace) 5 Mg Capsule PO 12/16/24 07:59 Not Given
DAILY RAFAEL
Rosuvastatin Calcium 20 mg 11/18/24 17:00
Rosuvastatin (Crestor) 20 Mg Tablet PO 12/16/24 16:59
DAILY@1700 RAFAEL
Senna/Docusate Sodium 2 tablet 11/18/24 22:00
Docusate W/Senna (Page-Colace) Tablet PO 12/16/24 21:59
HS RAFAEL
Sodium Biphosphate/Sodium Phosphate 118 ml 11/18/24 02:42
Fleet Phosphate Enema (Adult) 135 Ml Bottle RECTAL 12/16/24 02:41
DAILYPRN PRN
if no bm x 4 days
Sodium Chloride 0 flush 11/18/24 03:00 11/18/24 06:17
Sodium Chloride 0.9% (Flush) Syringe IV 12/16/24 02:59 1 flush
PER PROTOCOL RAFAEL Administration
Tiotropium Browning 2 puff 11/18/24 20:00
Tiotropium (Spiriva Respimat) 2.5 Mcg Inhaler INH 12/16/24 19:59
R QPM RAFAEL
Review of Systems
-
History Source: Patient
Constitutional: Denies Fever, Weight Loss or Chills
EENT: Reports No Symptoms
Respiratory: Reports Cough and Trouble Breathing; Denies Hemoptysis or Wheezing
Cardiac: Reports Orthopnea; Denies Diaphoresis or Palpitations
GI: Reports Constipated; Denies Abdominal Pain, Nausea, Vomiting or Diarrhea
: Reports Difficulty Voiding; Denies Dysuria or Bleeding
Physical Exam
-
General: No Apparent Distress, Comfortable and Conversant; Negative Pain, Fever, Chills or Sweats
Cardiology: Irregular Rate/Rhythm
Pulmonary: Other (nonlabored breathing, room air)
GI: Soft; Negative Distended
Musculoskeletal: Other (+1 edema of extremities)
Neurology: Non Focal, No Lateralizing Symptoms and No Word Finding Difficulty
Skin: Warm and Dry
Psych: Calm
Labs
Lab Results
WBC 5.6 10^3/uL (4.8-10.8) 11/17/24 20:46
RBC 3.51 10^6/uL (4.70-6.10) L 11/17/24 20:46
Hgb 10.4 g/dL (13.0-18.0) L 11/17/24 20:46
Hct 32.0 % (39.0-52.0) L 11/17/24 20:46
MCV 91.2 fL (80.0-94.0) 11/17/24 20:46
MCH 29.6 pg (27.0-31.0) 11/17/24 20:46
MCHC 32.5 g/dL (33.0-37.0) L 11/17/24 20:46
RDW 17.6 % (11.5-14.5) H 11/17/24 20:46
Plt Count 216 10^3/uL (130-400) 11/17/24 20:46
MPV 9.5 fL (7.4-10.4) 11/17/24 20:46
Abs Immat Gran (auto) 0.0 10^3/uL (0-0.05) 11/17/24 20:46
Absolute Neuts (auto) 4.6 10^3/uL (1.4-6.5) 11/17/24 20:46
Absolute Lymphs (auto) 0.2 10^3/uL (1.2-3.4) L 11/17/24 20:46
Absolute Monos (auto) 0.7 10^3/uL (0.1-0.6) H 11/17/24 20:46
Absolute Eos (auto) 0.1 10^3/uL (0-0.7) 11/17/24 20:46
Absolute Basos (auto) 0.0 10^3/uL (0-0.2) 11/17/24 20:46
Immature Gran % 0.5 % (0-0.5) 11/17/24 20:46
Neutrophils % 82.0 % (42.2-75.2) H 11/17/24 20:46
Lymphocytes % 4.0 % (20.5-51.1) L 11/17/24 20:46
Monocytes % 12.4 % (1.7-9.3) H 11/17/24 20:46
Eosinophils % 0.9 % (0-6) 11/17/24 20:46
Basophils % 0.2 % (0-2) 11/17/24 20:46
Creatinine 0.6 mg/dL (0.7-1.3) L 11/18/24 06:22
Vital Signs
Vital Signs
Temp Pulse Resp BP Pulse Ox
98.0 F 78 22 99/57 94
11/18/24 11:07 11/18/24 11:07 11/18/24 11:07 11/18/24 11:07 11/18/24 11:07
[2024-11-18] MEDS: TOPROL XL 12.5 MG PO (16:27)
[2024-11-18] MEDS: CRESTOR 20 MG PO (16:27)
[2024-11-18] MEDS: STRIVERDI RESPIMAT 2 PUFF INH (19:25)
[2024-11-18] MEDS: SPIRIVA RESPIMAT 2.5 MCG 2 PUFF INH (19:25)
[2024-11-18] MEDS: XALATAN OPHTHALMIC SOLUTION 1 DROP BOTH EYES (21:15)
[2024-11-18] MEDS: SIMBRINZA 1%-0.2% OPHTH SUSP 1 DROP RIGHT EYE (21:15)
[2024-11-18] MEDS: SENOKOT-S 2 TABLET PO (21:15)
[2024-11-19] VITALS (8 sets, daily range): BP systolic 87–117; BP diastolic 40–58; BMI 20.5
[2024-11-19] MEDS: ROXICODONE 5 MG PO ×2 (05:49→12:23)
[2024-11-19] MEDS: TYLENOL 650 MG PO (06:08)
[2024-11-19 06:55] LABS: % Basophils 0.6 % (0-2); % Eosinophils 1.8 % (0-6); % Immature Granulocytes 0.6 % (0-0.5); % Lymphocytes 4.8 % (20.5-51.1); % Monocytes 11.4 % (1.7-9.3); % Neutrophils 80.8 % (42.2-75.2); Absolute Eosinophils 0.1 10^3/uL (0-0.7); Absolute Lymphocytes 0.3 10^3/uL (1.2-3.4); Absolute Monocytes 0.6 10^3/uL (0.1-0.6); Absolute Neutrophils 4.4 10^3/uL (1.4-6.5); Hematocrit 31.8 % (39.0-52.0); Hemoglobin 10.6 g/dL (13.0-18.0); Mean Corp Hgb Conc. 33.3 g/dL (33.0-37.0); Mean Corpuscular Volume 90.1 fL (80.0-94.0); Mean Platelet Volume 9.5 fL (7.4-10.4); Nucleated Red Blood Cells % 0 % (-); Platelet Count 224 10^3/uL (130-400); Red Blood Cell Count 3.53 10^6/uL (4.70-6.10); Red Cell Dist. Width 17.4 % (11.5-14.5); White Blood Cell Count 5.5 10^3/uL (4.8-10.8)
[2024-11-19 07:27] LABS: Blood Urea Nitrogen 20 mg/dl (9-20); Calcium 7.6 mg/dl (8.4-10.2); Carbon Dioxide 30 mmol/L (22-30); Chloride 93 mmol/L (98-107); Estimated Creatinine Clearance 84 ml/min; Glucose 104 mg/dl (70-99); Potassium 4.1 mmol/L (3.5-5.1); Sodium 131 mmol/L (135-145); eGFR > 60.00
--- NOTE | 2024-11-19 07:44 | VATNOTE ---
Area of swelling noted to underside of pt's L forearm. Pt states swelling is not new. No recent IVs in that area. Will continue to monitor.
[2024-11-19] MEDS: MIRALAX 17 GRAMS PO (08:50)
[2024-11-19] MEDS: LASIX 40 MG IV (08:52)
[2024-11-19] MEDS: MAG-TAB SR 168 MG PO (08:53)
[2024-11-19] MEDS: ELIQUIS 5 MG PO ×2 (08:53→20:05)
[2024-11-19] MEDS: NEURONTIN 300 MG PO ×2 (08:53→20:05)
[2024-11-19] MEDS: ALTACE 5 MG PO (10:10)
[2024-11-19] MEDS: METAMUCIL, KONSYL 1 PACKET PO (10:10)
[2024-11-19 10:31] LABS: Urine Albumin 1+ (Neg - Trace); Urine Bilirubin Negative (Negative); Urine Character Clear (Clear); Urine Color Yellow; Urine Glucose Negative (Negative); Urine Ketone Negative (Negative); Urine Leukocyte Negative (Negative); Urine Nitrite Negative (Negative); Urine Occult Blood 1+ (Negative); Urine Urobilinogen Negative (Neg - 1+)
[2024-11-19 10:39] LABS: Urine Squamous Cell 0-2 /LPF (Few)
[2024-11-19 10:40] LABS: Urine White Cell 0-2 /HPF (0-5)
--- NOTE | 2024-11-19 12:55 | W.PN.HOSP.TC ---
Today's Communication/Plan
-
Continue IV diuretics, likely transition to oral in 24 hours
Consider SGLT2i
Trend BMP/I's and O's/weights
Assessment / Plan
Assessment / Plan
#Acute HFpEF
-Unclear etiology; cannot rule out Keytruda induced process
-Echocardiogram with LVEF 55%, mild TR, dilated aortic root but unchanged from previous
-Presented with dyspnea/orthopnea, leg edema for over 2 weeks; BNP >4000
-On arrival was started on IV Lasix 40 mg twice daily, edema improving and adequate UOP
-Warm and wet phenotype, approaching euvolemia
-Cardiology following
Plan
-Continue IV Lasix 40 mg twice daily
-Consider SGLT2i for GDMT
-Monitor BMP, I's/O's, and daily weights
-Monitor on telemetry
-No added salt diet/fluid restriction
-Continue with Keytruda for now
#Stage IV non-small cell lung cancer
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
#[id number] smoking history
#COPD/emphysema
-Right upper lung lesion, s/p XRT 2018; now on Keytruda
-Currently on Anora Ellipta for COPD maintenance
-Home regimen also includes denosumab
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
-Follows with radiation oncology
#AF/AFL
-Home medications include metoprolol succinate and Eliquis
-No history of ablations known; did have AVELINO cardioversion in 03/2023
-Heart rate currently WNL and regular
#Hypertension
-Home medications include metoprolol and ramipril
-No known history of hypertensive systemic disease
-BP currently well-controlled here
#HLD
-Home medications include Crestor, no known ASCVD history
#Chronic pain with opiate dependence
-Related to bone metastases and cancer related pain
-Home regimen includes fentanyl patch, oxycodone, gabapentin
DVT prophylaxis: Home Eliquis
Diet: Regular
CODE STATUS: DNR
Anticipated Discharge: 24 - 48 hours
Subjective/Interval History
-
Date of Service: November 19, 2024
Seen and examined at the bedside. No acute events reported overnight. AFVSS on room air
Remains in net negative fluid balance with 5 kg weight loss since admission. Renal function stable, Na 131
He states he feels well today, denies any dyspnea. Denies any other new complaints
Objective Data
-
Labs:
Laboratory Results
11/19/24
05:50
WBC 5.5
Hgb 10.6 L
Hct 31.8 L
Plt Count 224
Sodium 131 L
Potassium 4.1
Chloride 93 L
Carbon Dioxide 30
BUN 20
Creatinine 0.6 L
Glucose 104 H
Calcium 7.6 L
Vital Signs:
Vital Signs
Temp Pulse Resp BP Pulse Ox
98.7 F 76 18 99/52 91
11/19/24 11:10 11/19/24 11:10 11/19/24 11:10 11/19/24 11:10 11/19/24 11:10
I&O
11/18/24 11/19/24 11/20/24
06:59 06:59 06:59
Intake Total 240 / 240 320 / 320
Output Total 1974 3600 / 3600 250 / 250
Balance -1974 -3360 / -3360 70 / 70
Review of Systems
-
History Source: Patient
All other systems: Reviewed and negative
Physical Exam
-
General: Well Developed, No Apparent Distress, Comfortable and Appears Chronically Ill
HEENT: Normocephalic, Atraumatic, Moist Mucous Membranes and Anicteric
Respiratory: Clear to Auscultation and Non Labored Respirations; Negative Accessory Resp Muscle Use
Cardiac: Regular Rhythm and S1/S2; Negative Murmur, Rub, JVD or Gallop
GI: Soft, Nontender, Nondistended and Normal Bowel Sounds
Musculoskeletal: No Clubbing, No Cyanosis and No Edema
Skin: Warm, Dry and Normal Turgor; Negative Rash
Neuro: AO x 3 and Nonfocal/Grossly Intact; Negative Tremors
Psych: Calm
Data Reviewed
-
Labs: Labs Reviewed by me and Discussed with Patient
[2024-11-19] MEDS: DURAGESIC 50 MCG/HR PATCH 1 PATCH TRANSDERM (15:01)
[2024-11-19] MEDS: LASIX IV ×2 (15:02→16:00)
--- NOTE | 2024-11-19 15:13 | CM ---
PT OT evals indicated HH VS SNF.
Pt was assistance of 2 as per RN today while getting pt OOB.
Spoke with pt and son in room.
They are unsure dc plan .
Pt is due for Keytruda 11/26/24 and would not be able to receive if in SNF.
CM number given.
PLAN Ongoing discharge plan
--- NOTE | 2024-11-19 16:04 | W.PN.CARDCBS ---
Addendum entered and electronically signed by Jalil Manuel MD 11/19/24 16:54:
I saw and examined the patient.
The Event Organizer's note was reviewed and I agree with the note.
Comment: Briefly, 79-year-old man past medical history of paroxysmal atrial fibrillation on Eliquis and lung cancer on Keytruda presenting in acute heart failure
proBNP was almost as high as 4000 suggestive of heart failure
However given diffuse edema on exam and low protein/albumin suspect there is a component of low oncotic pressure contributing as well
Echo here confirmed normal LV function and no high-grade valve disease
Symptomatically he is improved with IV Lasix
Suspect he would benefit from additional dosing but currently on hold now due to borderline blood pressures
Hopefully can transition to p.o. diuretics in the next 24 to 48 hours
In regards to his atrial fibrillation, telemetry shows sinus rhythm with PACs
Would continue metoprolol for rate control as blood pressure tolerates
Eliquis for cardioembolic prophylaxis
Rest per Meliza Jarquin
Original Note:
Today's Communication / Plan
-
decrease IV lasix. hold ramipril
continue toprol with hold parameters
dietary consultation
will solidify fluid restriction/salt restriction with oncology/dietary
family requesting ortho eval for R shoulder pain
Impression / Plan
-
Primary [place] Carpenter: Dr. Hailey Dempsey
Assessment:
Presentation with dyspnea, edema
Acute HFpEF
Paroxysmal atrial fibrillation
Chronic OAC with eliquis
Hypertension
Hyperlipidemia
Bifascicular block
COPD/emphysema
Metastatic NSCLC s/p XRT, currently on keytruda
SVC syndrome, currently receiving radiation
Thyroid nodules
BPH
Tobacco abuse
Thoracic aortic aneurysm 4.[address] in [address] on [address] of chest
Diverticulitis with diverticular abscess with colon resection
Chronic neck and back pain
Former alcoholic
DNR code status
ECHO 11/18/24: EF 55-60%, normal RWM, mild TR, trivial pericardial effusion, dilated aortic root
Plan:
- He presented with dyspnea lower extremity edema and weight gain
- He reports breathing is much improved today. Blood pressures on the low side this afternoon. Will decrease IV lasix dose to 40mg daily and reassess in a.m. also holding outpatient ramipril
- Will attempt to continue Toprol 12.5 mg daily, hold parameters in place, discussed with nursing
- Echocardiogram with normal EF, no significant valve issues to explain acute CHF
- Appreciate oncology input. Unclear if Keytruda contributing to heart failure.
- He has history of tendency towards dehydration and therefore has been pushing oral hydration at recommendation of his oncologist. This will be difficult to balance now with heart failure in addition to mild hyponatremia, baseline marginal blood
pressure. Dietary consultation
- In sinus rhythm, follow on telemetry. Continue outpatient Eliquis, Toprol. Does have history of paroxysmal A-fib
-He reports right shoulder pain which he has had as an outpatient, however has been worsening. Was severe earlier today, improved slowly with oxycodone earlier today. Family requesting consideration for orthopedic consult to jayceeal as radiation
oncology does not feel discomfort secondary to his cancer, d/w hospitalist via TT
- Discussed with patient as well as and son via telephone. All questions answered to the best of my ability
Progress Note - Bulwark Carpenter
Subjective
Date of Service: November 19, 2024
reports improvement in breathing
Objective
Labs:
11/19/24 05:50
11/19/24 05:50
Labs
Hgb 10.6 g/dL (13.0-18.0) L 11/19/24 05:50
Hct 31.8 % (39.0-52.0) L 11/19/24 05:50
Plt Count 224 10^3/uL (130-400) 11/19/24 05:50
Sodium 131 mmol/L (135-145) L 11/19/24 05:50
Potassium 4.1 mmol/L (3.5-5.1) 11/19/24 05:50
BUN 20 mg/dl (9-20) 11/19/24 05:50
Creatinine 0.6 mg/dL (0.7-1.3) L 11/19/24 05:50
Glucose 104 mg/dl (70-99) H 11/19/24 05:50
Troponins
11/17/24
20:46
Troponin I < 0.012
Vital Signs and I&O:
Vital Signs
Temp Pulse Resp BP Pulse Ox
97.9 F 79 18 87/43 96
11/19/24 15:20 11/19/24 15:20 11/19/24 15:20 11/19/24 15:20 11/19/24 15:20
Vital Signs
Temp Pulse Resp BP Pulse Ox
97.9 F 79 18 87/43 96
11/19/24 15:20 11/19/24 15:20 11/19/24 15:20 11/19/24 15:20 11/19/24 15:20
Intake & Output
11/17/24 11/18/24 11/19/24 11/20/24
07:59 07:59 07:59 07:59
Intake Total 240 / 240 320 / 320
Output Total 1974 3600 / 3600 250 / 250
Balance -1974 -0 / -3360 70 / 70
Physical Exam
Physical Exam
GEN: No distress, awake, alert, oriented x3. frail
HEENT: supple, anicteric, mmm, eomi
LUNGS: Few crackles B/L, no wheezes
CV: Reg, S1/S2, no murmur
ABD: soft, BS+, NT/ND
EXT: No cyanosis, clubbing, edema
NEURO: Gross non-focal
SKIN: Warm, pink, dry. No rash
[2024-11-19] MEDS: CRESTOR 20 MG PO (17:12)
[2024-11-19] MEDS: TOPROL XL 12.5 MG PO (17:13)
[2024-11-19] MEDS: ROXICODONE PO (17:14)
[2024-11-19] MEDS: STRIVERDI RESPIMAT 2 PUFF INH (19:27)
[2024-11-19] MEDS: SPIRIVA RESPIMAT 2.5 MCG 2 PUFF INH (19:27)
[2024-11-19] MEDS: SENOKOT-S 2 TABLET PO (22:27)
[2024-11-19] MEDS: SIMBRINZA 1%-0.2% OPHTH SUSP 1 DROP RIGHT EYE (22:27)
[2024-11-19] MEDS: XALATAN OPHTHALMIC SOLUTION 1 DROP BOTH EYES (22:27)
[2024-11-20] VITALS (8 sets, daily range): BP systolic 98–119; BP diastolic 48–81; PULSE 78; BMI 20.3
[2024-11-20 06:21] LABS: % Basophils 0.4 % (0-2); % Immature Granulocytes 0.4 % (0-0.5); % Lymphocytes 2.9 % (20.5-51.1); % Monocytes 13.4 % (1.7-9.3); % Neutrophils 80.9 % (42.2-75.2); Absolute Eosinophils 0.1 10^3/uL (0-0.7); Absolute Lymphocytes 0.2 10^3/uL (1.2-3.4); Absolute Monocytes 0.7 10^3/uL (0.1-0.6); Absolute Neutrophils 4.5 10^3/uL (1.4-6.5); Hematocrit 31.7 % (39.0-52.0); Hemoglobin 10.4 g/dL (13.0-18.0); Mean Corp Hgb Conc. 32.8 g/dL (33.0-37.0); Mean Corpuscular Hgb 29.8 pg (27.0-31.0); Mean Corpuscular Volume 90.8 fL (80.0-94.0); Mean Platelet Volume 9.7 fL (7.4-10.4); Nucleated Red Blood Cells % 0 % (-); Platelet Count 211 10^3/uL (130-400); Red Blood Cell Count 3.49 10^6/uL (4.70-6.10); Red Cell Dist. Width 17.2 % (11.5-14.5); White Blood Cell Count 5.5 10^3/uL (4.8-10.8)
[2024-11-20 06:47] LABS: Blood Urea Nitrogen 24 mg/dl (9-20); Calcium 7.4 mg/dl (8.4-10.2); Carbon Dioxide 29 mmol/L (22-30); Chloride 93 mmol/L (98-107); Estimated Creatinine Clearance 83 ml/min; Glucose 112 mg/dl (70-99); Magnesium 2.2 mg/dl (1.6-2.3); Potassium 4.7 mmol/L (3.5-5.1); Sodium 130 mmol/L (135-145); eGFR > 60.00
[2024-11-20] MEDS: LASIX 40 MG IV (09:37)
[2024-11-20] MEDS: MAG-TAB SR 168 MG PO (09:37)
[2024-11-20] MEDS: METAMUCIL, KONSYL 1 PACKET PO (09:37)
[2024-11-20] MEDS: NEURONTIN 300 MG PO ×2 (09:37→20:42)
[2024-11-20] MEDS: ELIQUIS 5 MG PO ×2 (09:37→20:42)
--- NOTE | 2024-11-20 10:21 | W.PN.CARDCBS ---
Addendum entered and electronically signed by Monae Le DO 11/20/24 17:01:
I saw and examined the patient.
The Halftone Operator's note was reviewed and I agree with the note.
Comment: Patient seen and examined with son at bedside. Overall feels better with improved shortness of breath. Awaiting PT recommendations regarding rehab needs
General: No acute distress, AAOX3
Heart: Regular, positive S1/S2, no murmur
Lungs: Decreased breath sounds but clear
Abd: Positive BS, NT/ND, neg rebound/rigidity/guarding
Ext: Trace pedal edema
Neuro: nonfocal
Plan:
Shortness of breath and edema diagnosed with heart failure with preserved ejection fraction which improved with IV diuretics
- 2D echocardiogram with normal biventricular size and systolic function with grade 1 diastolic dysfunction in July 2024. Mild concentric LVH. Trivial pericardial effusion. No hemodynamically significant valve pathology with mild MR and TR.
- CTNI < 0.012
- proBNP 3960
- Transition to new Lasix 20 mg daily
- Consider outpatient addition of SGLT2 inhibitor
Paroxysmal atrial fibrillation currently in sinus rhythm
- Continue Eliquis anticoagulation
- Continue Toprol-XL 12.5 mg daily
- Consider outpatient groundwater monitoring technician to reassess occult PAF
Metastatic NSCLC s/p XRT, currently on Keytruda
- Continue to follow with his oncologist and slat twister
Chronic hyponatremia�stable
Obstructive sleep apnea on BiPAP -patient's son raise concerns about recent setting changes and this admission for heart failure. He spoke with his outpatient slat twister and no contraindications to current BiPAP settings
Will sign off, recall if needed
Original Note:
Today's Communication / Plan
-
Cont Lasix 20 mg PO daily upon d/c
Cont Toprol XL 12.5 mg daily
Hold ramipril upon d/c, can reassess as an outpatient, but patient with tendency towards hypotension
Cont Eliquis
Impression / Plan
-
PCP: Dr. Jimenez Fitzpatrick
Primary Trim Operator: Dr. Dempsey
Assessment:
Presentation with dyspnea, edema 11/17/24
Acute HFpEF
Paroxysmal atrial fibrillation
Chronic OAC with Eliquis
Hypertension
Hyperlipidemia
Bifascicular block
COPD/emphysema
Metastatic NSCLC s/p XRT, currently on Keytruda
SVC syndrome, currently receiving radiation
Thyroid nodules
BPH
Tobacco abuse
Thoracic aortic aneurysm 4.[address] in 2019
Coronary calcification on CT of chest
Diverticulitis with diverticular abscess with colon resection
Chronic neck and back pain
Former alcoholic
DNR code status
ECHO 11/18/24: EF 55-60%, normal RWM, mild TR, trivial pericardial effusion, dilated aortic root
Plan:
-Patient admitted with newly diagnosed acute HFpEF
-Weight is down 3 lbs this admission and dry weight at d/c is 129 lbs. Recommend Lasix 20 mg PO daily. Patient was not taking a diuretic prior to admission.
-EF preserved at 55-60% by echo reviewed and summarized above by me on 11/20/24
-Outpatient dose of Toprol XL 12.5 mg daily has been continued
-Outpatient dose of ramipril 5 mg daily is on hold due to hypotension. Would continue to hold at d/c and reassess as an outpatient.
-Will not add SGLT-2 due to hypotension
-Oncology note reviewed and they do not believe Keytruda is contributing to CHF
-Patient with known paroxysmal Afib, currently in SR on tele reviewed by me 11/20/24.
-Toprol XL as above
-Outpatient dose of Eliquis 5 mg BID has been continued
-Cardiology f/u arranged
Progress Note - Trim Operator
Subjective
Date of Service: November 20, 2024
Patient denies pain, he isn't sure if he feels any better now compared to admission
Objective
Labs:
05/01/25 05:44
11/20/24 05:44
Labs
Hgb 10.4 g/dL (13.0-18.0) L 11/20/24 05:44
Hct 31.7 % (39.0-52.0) L 11/20/24 05:44
Plt Count 211 10^3/uL (130-400) 11/20/24 05:44
Sodium 130 mmol/L (135-145) L 11/20/24 05:44
Potassium 4.7 mmol/L (3.5-5.1) 11/20/24 05:44
BUN 24 mg/dl (9-20) H 11/20/24 05:44
Creatinine 0.6 mg/dL (0.7-1.3) L 11/20/24 05:44
Glucose 112 mg/dl (70-99) H 11/20/24 05:44
Troponins
11/17/24
20:46
Troponin I < 0.012
Vital Signs and I&O:
Vital Signs
Temp Pulse Resp BP Pulse Ox
98.9 F 86 18 113/54 92
11/20/24 07:25 11/20/24 07:25 11/20/24 07:25 11/20/24 07:25 11/20/24 08:26
Vital Signs
Temp Pulse Resp BP Pulse Ox
98.9 F 86 18 113/54 92
11/20/24 07:25 11/20/24 07:25 11/20/24 07:25 11/20/24 07:25 11/20/24 08:26
Intake & Output
11/18/24 11/19/24 11/20/24 11/21/24
06:59 06:59 06:59 06:59
Intake Total 240 / 240 560 / 560 300 / 300
Output Total 1974 3600 / 3600 975 / 975
Balance -1974 -3360 / -3360 -415 / -415 300 / 300
Physical Exam
Physical Exam
GEN: AAOx3
HEENT: MMM
LUNGS: RA. No audible wheeze
CV: SR on tele
ABD: ND
EXT: No edema B/L
NEURO: Gross non-focal
SKIN: No rash
--- NOTE | 2024-11-20 13:20 | W.PN.HOSP.TC ---
Today's Communication/Plan
-
Transition to oral Lasix within 24-hour
Possible discharge later
Assessment / Plan
Assessment / Plan
#Acute HFpEF
-Unclear etiology; cannot rule out Keytruda induced process
-Echocardiogram with LVEF 55%, mild TR, dilated aortic root but unchanged from previous
-Presented with dyspnea/orthopnea, leg edema for over 2 weeks; BNP >4000
-On arrival was started on IV Lasix 40 mg twice daily, edema improving and adequate UOP
-Warm and wet phenotype, approaching euvolemia
-Cardiology following
Plan
-Transition to oral Lasix within next 24 hours
-Monitor BMP, I's/O's, and daily weights
-Monitor on telemetry
-No added salt diet/fluid restriction
-Continue with Keytruda for now
#Stage IV non-small cell lung cancer
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
#[id number] smoking history
#COPD/emphysema
-Right upper lung lesion, s/p XRT 2018; now on Keytruda
-Currently on Anora Ellipta for COPD maintenance
-Home regimen also includes denosumab
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
-Follows with radiation oncology
#AF/AFL
-Home medications include metoprolol succinate and Eliquis
-No history of ablations known; did have AVELINO cardioversion in 03/2023
-Heart rate currently WNL and regular
#Hypertension
-Home medications include metoprolol and ramipril
-No known history of hypertensive systemic disease
-BP currently well-controlled here
#HLD
-Home medications include Crestor, no known ASCVD history
#Chronic pain with opiate dependence
-Related to bone metastases and cancer related pain
-Home regimen includes fentanyl patch, oxycodone, gabapentin
DVT prophylaxis: Home Eliquis
Diet: Regular
CODE STATUS: DNR
Anticipated Discharge: Within 24 hours
Subjective/Interval History
-
Date of Service: November 20, 2024
Seen and examined at the bedside. No acute events reported overnight. AFVSS
Renal function stable with creatinine 0.6. Remains on room air comfortably.
Denies any new complaints this morning
Objective Data
-
Labs:
Laboratory Results
11/20/24
05:44
WBC 5.5
Hgb 10.4 L
Hct 31.7 L
Plt Count 211
Sodium 130 L
Potassium 4.7
Chloride 93 L
Carbon Dioxide 29
BUN 24 H
Creatinine 0.6 L
Glucose 112 H
Calcium 7.4 L
Vital Signs:
Vital Signs
Temp Pulse Resp BP Pulse Ox
98.6 F 78 18 105/53 91
11/20/24 11:10 11/20/24 11:10 11/20/24 11:10 11/20/24 11:10 11/20/24 11:10
I&O
11/19/24 11/20/24 11/21/24
06:59 06:59 06:59
Intake Total 240 / 240 560 / 560 300 / 300
Output Total 3600 / 3600 975 / 975
Balance -3360 / -3360 -415 / -415 300 / 300
Review of Systems
-
History Source: Patient
All other systems: Reviewed and negative
Physical Exam
-
General: Well Developed, No Apparent Distress and Appears Chronically Ill
HEENT: Normocephalic, Atraumatic, Moist Mucous Membranes and Anicteric
Respiratory: Clear to Auscultation and Non Labored Respirations; Negative Accessory Resp Muscle Use
Cardiac: Regular Rhythm and S1/S2; Negative Murmur, Rub, JVD or Gallop
GI: Soft, Nontender, Nondistended and Normal Bowel Sounds
Musculoskeletal: No Clubbing, No Cyanosis and No Edema
Skin: Warm, Dry and Normal Turgor; Negative Rash
Neuro: AO x 3 and Nonfocal/Grossly Intact; Negative Tremors
Psych: Calm
Data Reviewed
-
Labs: Labs Reviewed by me and Discussed with Physician (Cardiology)
--- NOTE | 2024-11-20 16:40 | CM ---
PT OT david indicated SNF.
Spoke with son Vincenzo [phone] they have not decided yet for SNF VS Home .
Pt is due for Keytruda 11/26/24 and would not be able to receive if in SNF.
Vincenzo will return my call and dc plan .CM will assist with their decision.
PLAN Ongoing discharge plan
[2024-11-20] MEDS: CRESTOR 20 MG PO (18:04)
[2024-11-20] MEDS: TOPROL XL 12.5 MG PO (18:04)
[2024-11-20] MEDS: SPIRIVA RESPIMAT 2.5 MCG 2 PUFF INH (19:37)
[2024-11-20] MEDS: STRIVERDI RESPIMAT 2 PUFF INH (19:37)
[2024-11-20] MEDS: SIMBRINZA 1%-0.2% OPHTH SUSP 1 DROP RIGHT EYE (20:42)
[2024-11-20] MEDS: SENOKOT-S 2 TABLET PO (20:42)
[2024-11-20] MEDS: FLUSH (NSS) 1 FLUSH IV (20:42)
[2024-11-20] MEDS: XALATAN OPHTHALMIC SOLUTION 1 DROP BOTH EYES (20:42)
[2024-11-21] VITALS (7 sets, daily range): BP systolic 108–126; BP diastolic 44–56; PULSE 74; O2SAT 95; BMI 20.1
[2024-11-21] MEDS: LASIX IV (09:07)
[2024-11-21] MEDS: MAG-TAB SR 168 MG PO (09:08)
[2024-11-21] MEDS: ELIQUIS 5 MG PO ×2 (09:08→20:23)
[2024-11-21] MEDS: LASIX 20 MG PO (09:08)
[2024-11-21] MEDS: METAMUCIL, KONSYL 1 PACKET PO (09:08)
[2024-11-21] MEDS: NEURONTIN 300 MG PO ×2 (09:08→20:23)
[2024-11-21 09:36] LABS: ALT (SGPT) 37 U/L (0-50); AST (SGOT) 36 U/L (17-59); Albumin 2.9 g/dl (3.5-5.0); Alkaline Phosphatase 176 U/L (38-126); Blood Urea Nitrogen 22 mg/dl (9-20); Calcium 7.4 mg/dl (8.4-10.2); Carbon Dioxide 25 mmol/L (22-30); Chloride 93 mmol/L (98-107); Estimated Creatinine Clearance 82 ml/min; Glucose 103 mg/dl (70-99); Potassium 4.3 mmol/L (3.5-5.1); Sodium 127 mmol/L (135-145); Total Bilirubin 0.7 mg/dl (0.2-1.3); Total Protein 5.4 g/dl (6.3-8.2); eGFR > 60.00
--- NOTE | 2024-11-21 12:03 | W.PN.HOSP.TC ---
Addendum entered and electronically signed by Jerry Arredondo DO 11/21/24 12:25:
I spoke with the patient's primary brush and broom clipper, Dr. Boateng, about use of AVS after discharge. No contraindication to using AVS with LVEF >45%. Patient and his son were notified.
Original Note:
Today's Communication/Plan
-
Transition to oral Lasix
Check urine studies for hyponatremia
Trend BMP
Assessment / Plan
Assessment / Plan
#Acute HFpEF
-Unclear etiology; cannot rule out Keytruda induced process
-Echocardiogram with LVEF 55%, mild TR, dilated aortic root but unchanged from previous
-Presented with dyspnea/orthopnea, leg edema for over 2 weeks; BNP >4000
-On arrival was started on IV Lasix 40 mg twice daily, edema improving and adequate UOP
-Warm and wet phenotype, approaching euvolemia
-Cardiology following
Plan
-Transition to PO Lasix 20 mg daily
-Monitor BMP, I's/O's, and daily weights
-Monitor on telemetry
-No added salt diet/fluid restriction
-Continue with Keytruda as OP for now
#Hypovolemic hyponatremia
-Likely secondary to IV diuretics, sodium was normal but down to 127 as of 11/21
-Sodium downtrend is correlated with Lasix and volume status, also low chloride
-Has been transition to low-dose PO diuretic, anticipate this will improve
-Will add on urine Osm, urine sodium, serum osmolality to assess for other etiology
-Trend BMP
#Stage IV non-small cell lung cancer
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
#[id number] smoking history
#COPD/emphysema
-Right upper lung lesion, s/p XRT 2019; now on Keytruda
-Currently on Anora Ellipta for COPD maintenance
-Home regimen also includes denosumab
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
-Follows with radiation oncology
#AF/AFL
-Home medications include metoprolol succinate and Eliquis
-No history of ablations known; did have AVELINO cardioversion in 03/2023
-Heart rate currently WNL and regular
#Hypertension
-Home medications include metoprolol and ramipril
-No known history of hypertensive systemic disease
-BP currently well-controlled here
#HLD
-Home medications include Crestor, no known ASCVD history
#Chronic pain with opiate dependence
-Related to bone metastases and cancer related pain
-Home regimen includes fentanyl patch, oxycodone, gabapentin
DVT prophylaxis: Home Eliquis
Diet: Regular
CODE STATUS: DNR
Anticipated Discharge: 24 - 48 hours
Subjective/Interval History
-
Date of Service: November 21, 2024
Seen and examined at the bedside. No acute events reported overnight. AFVSS this morning on room air.
Serum sodium down to 127 this morning. Renal function remains stable at creatinine 0.6
Denies any new complaints
Objective Data
-
Labs:
Laboratory Results
11/21/24
06:56
Sodium 127 L
Potassium 4.3
Chloride 93 L
Carbon Dioxide 25
BUN 22 H
Creatinine 0.6 L
Glucose 103 H
Calcium 7.4 L
Total Bilirubin 0.7
AST 36
ALT 37
Alkaline Phosphatase 176 H
Vital Signs:
Vital Signs
Temp Pulse Resp BP Pulse Ox
98 F 78 18 110/55 94
11/21/24 11:09 11/21/24 11:09 11/21/24 11:09 11/21/24 11:09 11/21/24 11:09
I&O
11/20/24 11/21/24 11/22/24
06:59 06:59 06:59
Intake Total 560 / 560 900 / 900
Output Total 975 / 975 1700 / 1700
Balance -415 / -415 -800 / -800
Review of Systems
-
History Source: Patient
All other systems: Reviewed and negative
Physical Exam
-
General: Well Developed, No Apparent Distress, Comfortable and Appears Chronically Ill
HEENT: Normocephalic, Atraumatic, Moist Mucous Membranes and Anicteric
Respiratory: Clear to Auscultation and Non Labored Respirations
Cardiac: Regular Rhythm and S1/S2; Negative Murmur, Rub, JVD or Gallop
GI: Soft, Nontender, Nondistended and Normal Bowel Sounds
Musculoskeletal: No Clubbing, No Cyanosis and No Edema
Skin: Warm, Dry and Normal Turgor; Negative Rash
Neuro: AO x 3 and Nonfocal/Grossly Intact; Negative Tremors
Psych: Calm
Data Reviewed
-
Labs: Labs Reviewed by me, Discussed with Nurse and Discussed with Patient
[2024-11-21 13:13] LABS: Osmolality Serum 265 mOsm/kg (275-300)
[2024-11-21 13:13] LABS: Osmolality Urine 521 mOsm/kg (300-900)
[2024-11-21] MEDS: ROXICODONE 5 MG PO (15:15)
[2024-11-21] MEDS: DULCOLAX 10 MG RECTAL (15:16)
[2024-11-21] MEDS: TOPROL XL 12.5 MG PO (16:19)
[2024-11-21] MEDS: CRESTOR 20 MG PO (16:19)
--- NOTE | 2024-11-21 17:51 | CM ---
indicated pt can be discharged to SNF.
Spoke with son Vincenzo he indicated that medicare would pay for Keytruda while he is at SNF.
Spoke with Rachel at [facility] asked her if pt can be accepted tomorrow with or without Keytruda.
[facility] Rachel said she could not get answer from [facility] about Keytruda coverage.
[facility] can not accept pt.
Spoke with Vincenzo he said he is aware of above. He requested [facility] referral.
Lm with [facility] and referral placed.
IMM copy given explained signed on chart.
PLAN To SNF after located
[2024-11-21] MEDS: SPIRIVA RESPIMAT 2.5 MCG 2 PUFF INH (17:57)
[2024-11-21] MEDS: STRIVERDI RESPIMAT 2 PUFF INH (17:58)
[2024-11-21 18:57] LABS: Urine Sodium 52 mmol/L (30-90)
[2024-11-21] MEDS: SIMBRINZA 1%-0.2% OPHTH SUSP 1 DROP RIGHT EYE (20:24)
[2024-11-21] MEDS: XALATAN OPHTHALMIC SOLUTION 1 DROP BOTH EYES (20:24)
[2024-11-21] MEDS: SENOKOT-S PO (20:34)
[2024-11-22] VITALS (7 sets, daily range): BP systolic 100–120; BP diastolic 46–60; BMI 20.2
[2024-11-22 07:04] LABS: Blood Urea Nitrogen 19 mg/dl (9-20); Calcium 7.6 mg/dl (8.4-10.2); Carbon Dioxide 28 mmol/L (22-30); Chloride 95 mmol/L (98-107); Estimated Creatinine Clearance 83 ml/min; Glucose 109 mg/dl (70-99); Potassium 4.1 mmol/L (3.5-5.1); Sodium 129 mmol/L (135-145); eGFR > 60.00
[2024-11-22] MEDS: MAG-TAB SR 168 MG PO (10:19)
[2024-11-22] MEDS: NEURONTIN 300 MG PO ×2 (10:19→20:34)
[2024-11-22] MEDS: ELIQUIS 5 MG PO ×2 (10:19→20:34)
[2024-11-22] MEDS: METAMUCIL, KONSYL 1 PACKET PO (10:21)
--- NOTE | 2024-11-22 12:06 | W.PN.HOSP.TC ---
Today's Communication/Plan
-
Hold Lasix
Continue fluid restriction
Nephrology recs appreciated
Trend BMP
Assessment / Plan
Assessment / Plan
#Acute HFpEF
-Unclear etiology; cannot rule out Keytruda induced process
-Echocardiogram with LVEF 55%, mild TR, dilated aortic root but unchanged from previous
-Presented with dyspnea/orthopnea, leg edema for over 2 weeks; BNP >4000
-On arrival was started on IV Lasix 40 mg twice daily, edema improving and adequate UOP
-Warm and wet phenotype, approaching euvolemia
-Cardiology following
Plan
-Holding Lasix due to hyponatremia
-Consider resuming Lasix at 20 mg daily
-Monitor BMP, I's/O's, and daily weights
-Monitor on telemetry
-No added salt diet/fluid restriction
#Hyponatremia with inappropriate ADH response
-Question if this is SIADH, possibly related to lung cancer, versus hypovolemia secondary to Lasix
-Sodium was normal but down to 127 as of 11/21, urine sodium 55 and urine osmolality 550
-Sodium downtrend is correlated with Lasix and volume status, also low chloride
-Oral diuretic held, started on 48 ounce FR with improved sodium up to 129
-Nephrology consulted, will hold Lasix and continue with FR for now
-Trend BMP
#Stage IV non-small cell lung cancer
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
#[id number] smoking history
#COPD/emphysema
-Right upper lung lesion, s/p XRT 2019; now on Keytruda
-Currently on Anora Ellipta for COPD maintenance
-Home regimen also includes denosumab
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
-Follows with radiation oncology
#AF/AFL
-Home medications include metoprolol succinate and Eliquis
-No history of ablations known; did have AVELINO cardioversion in 03/2023
-Heart rate currently WNL and regular
#Hypertension
-Home medications include metoprolol and ramipril
-No known history of hypertensive systemic disease
-BP currently well-controlled here
#HLD
-Home medications include Crestor, no known ASCVD history
#TASIA on AVS
-Discussed with primary car pincher, no contraindication to AVS with HFpEF
-If echocardiogram with LVEF <45% in the future then AVS will be contraindicated
#Chronic pain with opiate dependence
-Related to bone metastases and cancer related pain
-Home regimen includes fentanyl patch, oxycodone, gabapentin
DVT prophylaxis: Home Eliquis
Diet: Regular
CODE STATUS: DNR
Anticipated Discharge: 24 - 48 hours
Subjective/Interval History
-
Date of Service: November 22, 2024
Seen and examined at the bedside. No acute events reported overnight. AFVSS this morning
Serum sodium improved to 129 today. Urine osmolality 550 with urine sodium 52. Was started on fluid restriction and Lasix was held evening of 11/21
He states he feels well and denies any complaints today. Denies any chest pain or shortness of breath
Objective Data
-
Labs:
Laboratory Results
11/22/24 11/22/24
04:34 06:19
Sodium Cancelled 129 L
Potassium Cancelled 4.1
Chloride Cancelled 95 L
Carbon Dioxide Cancelled 28
BUN Cancelled 19
Creatinine Cancelled 0.5 L
Glucose Cancelled 109 H
Calcium Cancelled 7.6 L
Vital Signs:
Vital Signs
Temp Pulse Resp BP Pulse Ox
97.9 F 76 16 114/46 97
11/22/24 11:11 11/22/24 11:11 11/22/24 11:11 11/22/24 11:11 11/22/24 11:11
I&O
11/21/24 11/22/24 11/23/24
06:59 06:59 06:59
Intake Total 900 / 900 600 / 600
Output Total 1700 / 1700 1750 / 1750
Balance -800 / -800 -1150 / -1150
Review of Systems
-
History Source: Patient
All other systems: Reviewed and negative
Physical Exam
-
General: Well Developed, No Apparent Distress, Comfortable, Appears Chronically Ill and Other (Thin and frail)
HEENT: Normocephalic, Atraumatic, Moist Mucous Membranes and Anicteric
Respiratory: Clear to Auscultation and Non Labored Respirations; Negative Accessory Resp Muscle Use
Cardiac: Regular Rhythm and S1/S2; Negative Murmur, Rub or Gallop
GI: Soft, Nontender, Nondistended and Normal Bowel Sounds
Musculoskeletal: No Clubbing, No Cyanosis and No Edema
Skin: Warm, Dry and Normal Turgor; Negative Rash
Neuro: AO x 3 and Nonfocal/Grossly Intact; Negative Tremors
Psych: Calm
Data Reviewed
-
Labs: Labs Reviewed by me and Discussed with Patient
--- NOTE | 2024-11-22 12:18 | W.CON.NEPH ---
Consultation
-
Date/Time Consultation Requested: 11/22/2024 at 7 AM
Date/Time Consultation Performed: 11/22/2024 at 10 AM
Requesting Provider: Dr. Arredondo
Performing Provider: Dr. Pinedo
Reason for Consultation: Hyponatremia
Medical History
-
Chief Complaint: Hyponatremia
History of Present Illness:
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
emergency department with 2 days of worsening shortness of breath.
Renal consult for hyponatremia of 127 at the lowest. He has been running since admission to the low 130s he was getting diuretics for lower extremity swelling and CHF and the sodium dipped to 127.
Patient states his appetite is great he does not drink excessive water.
Past Medical History
Metastatic non-small cell lung cancer complicated by SVC syndrome for which he is currently getting radiation treatments, atrial fibrillation on anticoagulation, COPD, hyperlipidemia,
Social History
Tobacco: Non-Smoker
Alcohol: None
Family History
Family History: Not Pertinent
Allergies / Home Medications
Allergy/AdvReac Type Severity Reaction Status Date / Time
adhesive Allergy SEE COMMENT Verified 10/27/24 13:54
Hayfever Allergy Sneezing, Uncoded 10/27/24 13:54
watery/itchy
eyes,
stuffy nose
�Medication �Instructions �Recorded �Confirmed �Type
brinzolamide 1 %-brimonidine 0.2 % 1 drp RIGHT EYE HS Eye Condition 04/09/23 11/18/24 History
eye drops,suspension (Simbrinza)
vgqahifppayt-yfalvjzv-ioonki tablet 1 tab PO DAILY Supplement 04/09/23 11/18/24 History
travoprost 0.004 % eye drops 1 drp BOTH EYES HS Eye Condition 04/09/23 11/18/24 History
umeclidinium 62.5 mcg-vilanterol 1 inh inhalation R QPM 04/09/23 11/18/24 History
25 mcg/actuation powdr for Lung/Breathing Issues
inhalation (Anoro Ellipta)
apixaban 5 mg tablet (Eliquis) 5 mg PO BID #60 tabs 04/10/23 11/18/24 Rx
clobetasol 0.05 % topical cream 1 applic topical DAILYPRN PRN 05/02/24 11/18/24 History
itching
polyethylene glycol 3350 17 gram 17 g PO DAILYPRN PRN constipation 05/04/24 11/18/24 Rx
oral powder packet (HealthyLax) #100 ea
albuterol sulfate 90 mcg/actuation 1 puff inhalation R Q6HPRN PRN sob 05/14/24 11/18/24 History
aerosol inhaler
bisacodyl 10 mg rectal suppository 10 mg VA DAILYPRN PRN if no bm x 3 05/14/24 11/18/24 History
(Dulcolax (bisacodyl)) days
oxycodone 5 mg tablet 10 mg PO .Q 4 TO 6 HR PRN severe 05/14/24 11/18/24 History
pain
sodium phosphates 19 gram-7 118 ml VA DAILYPRN PRN if no bm x 05/14/24 11/18/24 History
gram/118 mL enema (Fleet Enema) 4 days
Calcium 500mg With D3 25 Mcg 2 tab PO DAILY Supplement 11/18/24 11/18/24 History
Keytruda 1 dose IV .Q3WK Cancer 11/18/24 11/18/24 History
denosumab 120 mg/1.7 mL (70 mg/mL) 120 mg SC .Q6WK Cancer 11/18/24 11/18/24 History
subcutaneous solution (Xgeva)
fentanyl 50 mcg/hr transdermal 1 patch transdermal Q72H Pain 11/18/24 11/18/24 History
patch
gabapentin 300 mg capsule 300 mg PO BID Neurological 11/18/24 11/18/24 History
Condition
levalbuterol tartrate 45 1 puff inhalation DAILY 11/18/24 11/18/24 History
mcg/actuation aerosol inhaler Lung/Breathing Issues
magnesium chloride 71.5 mg 143 mg PO DAILY Supplement 11/18/24 11/18/24 History
(magnesium chloride)
tablet,delayed release (Slow-Mag)
metoprolol succinate 25 mg capsule 12.5 mg PO . DINNER Blood Pressure 11/18/24 11/18/24 History
sprinkle, ext. release 24 hr
psyllium 1 packet PO DAILY Constipation 11/18/24 11/18/24 History
rosuvastatin 20 mg tablet 20 mg PO .DINNER High Cholesterol 11/18/24 11/18/24 History
sennosides 8.6 mg-docusate sodium 2 tab-cap PO HS Constipation 11/18/24 11/18/24 History
50 mg tablet (Senokot-S)
furosemide 20 mg tablet 20 mg PO DAILY Heart Failure 1 11/20/24 Rx
month #30 tabs
latanoprost 0.005 % eye drops 1 drp BOTH EYES HS 1 month #2.5 mL 11/20/24 Rx
Review of Systems
-
No chest pain or shortness of breath
All other systems: Negative unless noted
Physical Exam
Vital Signs
Vital Signs
Temp Pulse Resp BP Pulse Ox
97.9 F 76 16 114/46 97
11/22/24 11:11 11/22/24 11:11 11/22/24 11:11 11/22/24 11:11 11/22/24 11:11
Lab Results
WBC 5.5 10^3/uL (4.8-10.8) 11/20/24 05:44
RBC 3.49 10^6/uL (4.70-6.10) L 11/20/24 05:44
Hgb 10.4 g/dL (13.0-18.0) L 11/20/24 05:44
Hct 31.7 % (39.0-52.0) L 11/20/24 05:44
Plt Count 211 10^3/uL (130-400) 11/20/24 05:44
Sodium 129 mmol/L (135-145) L 11/22/24 06:19
Potassium 4.1 mmol/L (3.5-5.1) 11/22/24 06:19
Chloride 95 mmol/L (98-107) L 11/22/24 06:19
Carbon Dioxide 28 mmol/L (22-30) 11/22/24 06:19
BUN 19 mg/dl (9-20) 11/22/24 06:19
Creatinine 0.5 mg/dL (0.7-1.3) L 11/22/24 06:19
eGFR > 60.00 11/22/24 06:19
Glucose 109 mg/dl (70-99) H 11/22/24 06:19
Calcium 7.6 mg/dl (8.4-10.2) L 11/22/24 06:19
Jtl-A-Ptfmbqjtoie Pept 3960 pg/ml 11/17/24 20:46
Albumin 2.9 g/dl (3.5-5.0) L 11/21/24 06:56
Physical Exam
General no acute distress
HEENT no cephalic atraumatic extraocular muscle intact no scleral icterus no JVD neck supple
lungs clear to auscultation bilateral
heart regular S1-S2 positive
abdomen soft nontender positive bowel sounds
extremities no edema pulses present bilateral
Neurologically nonfocal alert and oriented x 3
Skin no lesions no abrasions no petechiae
Psych normal affect no bizarre behavior
Data Reviewed
-
Labs: Labs Reviewed by me, Discussed with Nurse and Discussed with Family
Assessment/Plan
-
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
emergency department with 2 days of worsening shortness of breath.
Renal consult for hyponatremia of 127 at the lowest. He has been running since admission to the low 130s he was getting diuretics for lower extremity swelling and CHF and the sodium dipped to 127.
Patient states his appetite is great he does not drink excessive water.
Impression.
Hyponatremia.
Metastatic lung cancer.
CHF.
Atrial fibrillation.
Plan.
Hyponatremia likely secondary to SIADH with indices consistent with that elevated urine sodium. Although he was getting diuretics.
Blood pressures had been running low as well with the Lasix so certainly that could increase ADH effect from decreased effective arterial blood
We will hold the Lasix for now as the patient appears euvolemic
Fluid restriction
Increase protein in his diet
Sodium is stable at 129.
I would be okay with discharge if it remains at this level.
--- NOTE | 2024-11-22 13:47 | CM ---
Met with patient's son and as they were concerned that patient would be discharged and he has not had a SNF accept yet. Patient's son punctuated that he really wanted for patient to go to [facility] and relayed issue that they have been having
regarding infusion. Patient's son stated that he had heard good feedback about [facility] only. Other [facility] facilities were reviewed with with patient's son and he is agreeable to referrals being made to [facility] and to
[facility]. Will add them to referral for facilities to review.
Plan: Case management will continue to follow and assist with discharge planning. SNF upon bed availability and patient being medically cleared for discharge.
[2024-11-22] MEDS: DURAGESIC 50 MCG/HR PATCH 1 PATCH TRANSDERM (16:02)
[2024-11-22] MEDS: TOPROL XL 12.5 MG PO (16:04)
[2024-11-22] MEDS: CRESTOR 20 MG PO (16:05)
[2024-11-22] MEDS: ROXICODONE 5 MG PO (16:26)
[2024-11-22] MEDS: SENOKOT-S 2 TABLET PO (20:33)
[2024-11-22] MEDS: SIMBRINZA 1%-0.2% OPHTH SUSP 1 DROP RIGHT EYE (20:34)
[2024-11-22] MEDS: XALATAN OPHTHALMIC SOLUTION 1 DROP BOTH EYES (20:35)
[2024-11-23] MEDS: SPIRIVA RESPIMAT 2.5 MCG INH (01:10)
[2024-11-23] MEDS: STRIVERDI RESPIMAT INH (01:11)
[2024-11-23 03:20] VITALS: BP 106/48
[2024-11-23 04:50] VITALS: BMI 20.2
[2024-11-23 05:31] VITALS: BMI 20.2
[2024-11-23 06:19] LABS: % Basophils 0.9 % (0-2); % Eosinophils 4.7 % (0-6); % Immature Granulocytes 0.4 % (0-0.5); % Lymphocytes 4.3 % (20.5-51.1); % Monocytes 12.7 % (1.7-9.3); Absolute Eosinophils 0.2 10^3/uL (0-0.7); Absolute Lymphocytes 0.2 10^3/uL (1.2-3.4); Absolute Monocytes 0.6 10^3/uL (0.1-0.6); Absolute Neutrophils 3.6 10^3/uL (1.4-6.5); Hemoglobin 10.3 g/dL (13.0-18.0); Mean Corp Hgb Conc. 33.2 g/dL (33.0-37.0); Mean Corpuscular Hgb 29.2 pg (27.0-31.0); Mean Corpuscular Volume 87.8 fL (80.0-94.0); Mean Platelet Volume 9.5 fL (7.4-10.4); Nucleated Red Blood Cells % 0 % (-); Platelet Count 218 10^3/uL (130-400); Red Blood Cell Count 3.53 10^6/uL (4.70-6.10); White Blood Cell Count 4.7 10^3/uL (4.8-10.8)
[2024-11-23 06:37] LABS: Blood Urea Nitrogen 19 mg/dl (9-20); Calcium 7.7 mg/dl (8.4-10.2); Carbon Dioxide 27 mmol/L (22-30); Chloride 97 mmol/L (98-107); Estimated Creatinine Clearance 83 ml/min; Glucose 101 mg/dl (70-99); Potassium 4.6 mmol/L (3.5-5.1); Sodium 132 mmol/L (135-145); eGFR > 60.00
[2024-11-23 07:25] VITALS: BP 103/57
[2024-11-23] MEDS: ELIQUIS 5 MG PO ×2 (09:27→20:13)
[2024-11-23] MEDS: MAG-TAB SR 168 MG PO (09:27)
[2024-11-23] MEDS: NEURONTIN 300 MG PO ×2 (09:27→20:10)
[2024-11-23 11:15] VITALS: BP 102/51
[2024-11-23] MEDS: METAMUCIL, KONSYL 1 PACKET PO (11:30)
--- NOTE | 2024-11-23 13:32 | W.PN.HOSP.TC ---
Today's Communication/Plan
-
Continue no added salt diet and fluid restriction
Plan for PRN Lasix at discharge
Likely to SNF tomorrow
Assessment / Plan
Assessment / Plan
#Acute HFpEF
-Unclear etiology; cannot rule out Keytruda induced process
-Echocardiogram with LVEF 55%, mild TR, dilated aortic root but unchanged from previous
-Presented with dyspnea/orthopnea, leg edema for over 2 weeks; BNP >4000
-On arrival was started on IV Lasix 40 mg twice daily, edema improving and adequate UOP
-Became euvolemic and was transition to oral Lasix however held due to hyponatremia
-Likely cannot tolerate daily diuretic; plan for PRN Lasix for weight increase or edema at DC
-Continue with no added salt diet and 50 ounce FR
#SIADH
-Question if this is SIADH, possibly related to lung cancer, versus hypovolemia secondary to Lasix
-Sodium was normal but down to 127 as of 11/21, urine sodium 55 and urine osmolality 550
-Oral diuretic held, started on 48 ounce FR with improved sodium up to 132
-Nephrology consulted, recommended to continue fluid restriction and hold lasix
-Trend BMP
#Stage IV non-small cell lung cancer
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
#13-[id number] smoking history
#COPD/emphysema
-Right upper lung lesion, s/p XRT 2019; now on Keytruda
-Currently on Anora Ellipta for COPD maintenance
-Home regimen also includes denosumab
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
-Follows with radiation oncology
#AF/AFL
-Home medications include metoprolol succinate and Eliquis
-No history of ablations known; did have AVELINO cardioversion in 03/2023
-Heart rate currently WNL and regular
#Hypertension
-Home medications include metoprolol and ramipril
-No known history of hypertensive systemic disease
-BP currently well-controlled here
#HLD
-Home medications include Crestor, no known ASCVD history
#TASIA on AVS
-Discussed with primary mail list librarian, no contraindication to AVS with HFpEF
-If echocardiogram with LVEF <45% in the future then AVS will be contraindicated
#Chronic pain with opiate dependence
-Related to bone metastases and cancer related pain
-Home regimen includes fentanyl patch, oxycodone, gabapentin
DVT prophylaxis: Home Eliquis
Diet: Low-cholesterol, JANEL, 50 oz FR
CODE STATUS: DNR
Anticipated Discharge: Within 24 hours
Subjective/Interval History
-
Date of Service: November 23, 2024
Seen and examined at the bedside. No acute events reported overnight. AFVSS
Sodium improved to 132 on liquid restriction and holding Lasix. Remains on room air and comfortable
Denies any new complaints as of today.
Objective Data
-
Labs:
Laboratory Results
11/23/24
05:49
WBC 4.7 L
Hgb 10.3 L
Hct 31.0 L
Plt Count 218
Sodium 132 L
Potassium 4.6
Chloride 97 L
Carbon Dioxide 27
BUN 19
Creatinine 0.6 L
Glucose 101 H
Calcium 7.7 L
Vital Signs:
Vital Signs
Temp Pulse Resp BP Pulse Ox
98.2 F 82 16 102/51 96
11/23/24 11:15 11/23/24 11:15 11/23/24 11:15 11/23/24 11:15 11/23/24 11:15
I&O
11/22/24 11/23/24 11/24/24
06:59 06:59 06:59
Intake Total 600 / 600 2240 / 2240
Output Total 1750 / 1750 1350 / 1350
Balance -1150 / -1150 890 / 890
Review of Systems
-
History Source: Patient
All other systems: Reviewed and negative
Physical Exam
-
General: Well Developed, No Apparent Distress, Appears Chronically Ill and Other (Thin and frail)
HEENT: Normocephalic, Atraumatic, Moist Mucous Membranes and Anicteric
Respiratory: Clear to Auscultation and Non Labored Respirations; Negative Accessory Resp Muscle Use
Cardiac: Regular Rhythm and S1/S2; Negative Murmur, Rub or Gallop
GI: Soft, Nontender, Nondistended and Normal Bowel Sounds
Musculoskeletal: No Clubbing, No Cyanosis and No Edema
Skin: Warm, Dry and Normal Turgor; Negative Rash
Neuro: AO x 3 and Nonfocal/Grossly Intact
Psych: Calm
Data Reviewed
-
Labs: Labs Reviewed by me and Discussed with Patient
--- NOTE | 2024-11-23 13:36 | W.PN.NEPH.PH ---
Today's Communication / Plan
-
Continue fluid restrict
Continue to hold Lasix
Assessment/Plan
-
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
emergency department with 2 days of worsening shortness of breath.
Renal consult for hyponatremia of 127 at the lowest. He has been running since admission to the low 130s he was getting diuretics for lower extremity swelling and CHF and the sodium dipped to 127.
Patient states his appetite is great he does not drink excessive water.
Impression.
Hyponatremia.
Metastatic lung cancer.
CHF.
Atrial fibrillation.
Plan.
Hyponatremia likely secondary to SIADH with indices consistent with that elevated urine sodium. Although he was getting diuretics.
Blood pressures had been running low as well with the Lasix so certainly that could increase ADH effect from decreased effective arterial blood
We will hold the Lasix for now as the patient appears euvolemic
Fluid restriction
Increase protein in his diet
Sodium improved to 132
-
-
Date of Service: November 23, 2024
CC / HPI / ROS
-
Chief Complaint:
Shortness of breath
History of Present Illness:
Patient with history of lung cancer CHF with diuretics presenting with hyponatremia
Review of Systems:
No chest pain or shortness of breath
Labs
-
Labs:
WBC 4.7 10^3/uL (4.8-10.8) L 11/23/24 05:49
RBC 3.53 10^6/uL (4.70-6.10) L 11/23/24 05:49
Hgb 10.3 g/dL (13.0-18.0) L 11/23/24 05:49
Hct 31.0 % (39.0-52.0) L 11/23/24 05:49
Plt Count 218 10^3/uL (130-400) 11/23/24 05:49
Sodium 132 mmol/L (135-145) L 11/23/24 05:49
Potassium 4.6 mmol/L (3.5-5.1) 11/23/24 05:49
Chloride 97 mmol/L (98-107) L 11/23/24 05:49
Carbon Dioxide 27 mmol/L (22-30) 11/23/24 05:49
BUN 19 mg/dl (9-20) 11/23/24 05:49
Creatinine 0.6 mg/dL (0.7-1.3) L 11/23/24 05:49
eGFR > 60.00 11/23/24 05:49
Glucose 101 mg/dl (70-99) H 11/23/24 05:49
Calcium 7.7 mg/dl (8.4-10.2) L 11/23/24 05:49
Siv-G-Zqdjracwuzu Pept 3960 pg/ml 11/17/24 20:46
Albumin 2.9 g/dl (3.5-5.0) L 11/21/24 06:56
Physical Exam
-
Vital Signs:
Vital Signs
Temp Pulse Resp BP Pulse Ox
98.2 F 82 16 102/51 96
11/23/24 11:15 11/23/24 11:15 11/23/24 11:15 11/23/24 11:15 11/23/24 11:15
Respiratory:: Bilateral: CTA
Lung Excursion:: Normal
Abdomen:: Soft
Bowel Sounds:: Normal
Extremity Edema:: None: Bilateral:
[2024-11-23] MEDS: ROXICODONE 5 MG PO (14:44)
--- NOTE | 2024-11-23 14:50 | PTCARENOTE ---
Patient with complaints of shorts of breath. Pulse ox is 99% on RA. Lungs are diminished. Placed on 1L o2 for comfort. Patient no longer reports shortness of breath. Dr. Arredondo made aware. Plan of care ongoing.
[2024-11-23 15:30] VITALS: BP 121/63
[2024-11-23] MEDS: TOPROL XL 12.5 MG PO (17:30)
[2024-11-23] MEDS: CRESTOR 20 MG PO (17:31)
[2024-11-23 18:45] VITALS: BP 125/52
[2024-11-23] MEDS: SPIRIVA RESPIMAT 2.5 MCG 2 PUFF INH (19:56)
[2024-11-23] MEDS: STRIVERDI RESPIMAT 2 PUFF INH (19:56)
[2024-11-23] MEDS: SENOKOT-S 2 TABLET PO (20:10)
[2024-11-23] MEDS: SIMBRINZA 1%-0.2% OPHTH SUSP 1 DROP RIGHT EYE (20:11)
[2024-11-23] MEDS: XALATAN OPHTHALMIC SOLUTION 1 DROP BOTH EYES (20:11)
[2024-11-23 23:15] VITALS: BP 130/51
[2024-11-24] VITALS (7 sets, daily range): BP systolic 107–124; BP diastolic 47–61; PULSE 66; BMI 19.9
[2024-11-24 07:02] LABS: Blood Urea Nitrogen 21 mg/dl (9-20); Calcium 7.8 mg/dl (8.4-10.2); Carbon Dioxide 27 mmol/L (22-30); Chloride 96 mmol/L (98-107); Estimated Creatinine Clearance 81 ml/min; Glucose 112 mg/dl (70-99); Potassium 4.4 mmol/L (3.5-5.1); Sodium 131 mmol/L (135-145); eGFR > 60.00
[2024-11-24] MEDS: ELIQUIS 5 MG PO ×2 (07:57→22:49)
[2024-11-24] MEDS: MAG-TAB SR 168 MG PO (07:57)
[2024-11-24] MEDS: FLUSH (NSS) 1 FLUSH IV (07:57)
[2024-11-24] MEDS: NEURONTIN 300 MG PO ×2 (07:57→22:50)
[2024-11-24] MEDS: METAMUCIL, KONSYL 1 PACKET PO (10:55)
--- NOTE | 2024-11-24 11:24 | W.PN.HOSP.TC ---
Today's Communication/Plan
-
dispo planning for SNF
Assessment / Plan
Assessment / Plan
Mr. Adolfo Higgins is a 79 yo man with hx metastatic NSCLC complicated by SVC syndrome receiving radiation, afib on AC, COPD, HLD, presetnst to the ER 11/18 with 2 days worsening SOB. He was admitted for treatment of acute heart failure.
#Acute HFpEF
-Unclear etiology; cannot rule out Keytruda induced process
-Echocardiogram with LVEF 55%, mild TR, dilated aortic root but unchanged from previous
-Presented with dyspnea/orthopnea, leg edema for over 2 weeks; BNP >4000
-On arrival was started on IV Lasix 40 mg twice daily, edema improving and adequate UOP
-Became euvolemic and was transition to oral Lasix however held due to hyponatremia - concern dehydration leading to SIADH
-Likely cannot tolerate daily diuretic; plan for PRN Lasix for weight increase or edema at DC
-Continue with no added salt diet and 48 ounce FR
#SIADH
-related to lung cancer, versus hypovolemia secondary to Lasix
-Sodium was normal but down to 127 as of 11/21, urine sodium 55 and urine osmolality 550
-Oral diuretic held, started on 48 ounce FR with improved sodium up to 132
-Nephrology consulted, recommended to continue fluid restriction and hold lasix
-Trend BMP
#Stage IV non-small cell lung cancer
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
#27-claq-tiso smoking history
#COPD/emphysema
-Right upper lung lesion, s/p XRT 2018; now on Keytruda
-Currently on Anora Ellipta for COPD maintenance
-Home regimen also includes denosumab
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
-Follows with radiation oncology
#AF/AFL
-Home medications include metoprolol succinate and Eliquis
-No history of ablations known; did have AVELINO cardioversion in 03/2023
-Heart rate currently WNL and regular
#Hypertension
-Home medications include metoprolol and ramipril
-No known history of hypertensive systemic disease
-BP currently well-controlled here
#HLD
-Home medications include Crestor, no known ASCVD history
#TASIA on AVS
-Discussed with primary flatwork feeder, no contraindication to AVS with HFpEF
-If echocardiogram with LVEF <45% in the future then AVS will be contraindicated
#Chronic pain with opiate dependence
-Related to bone metastases and cancer related pain
-Home regimen includes fentanyl patch, oxycodone, gabapentin
DVT prophylaxis: Home Eliquis
Diet: Low-cholesterol, JANEL, 50 oz FR
CODE STATUS: DNR
Anticipated Discharge: Within 24 hours
Subjective/Interval History
-
Date of Service: November 24, 2024
no new complaints
breathing comfortably
has chronic rash chest and arms - requesting hydrocortisone cream
Objective Data
-
Labs:
Laboratory Results
11/24/24
05:46
Sodium 131 L
Potassium 4.4
Chloride 96 L
Carbon Dioxide 27
BUN 21 H
Creatinine 0.6 L
Glucose 112 H
Calcium 7.8 L
Vital Signs:
Vital Signs
Temp Pulse Resp BP Pulse Ox
97.8 F 89 18 122/61 94
11/24/24 08:08 11/24/24 08:08 11/24/24 08:08 11/24/24 08:08 11/24/24 08:08
I&O
11/23/24 11/24/24 11/25/24
06:59 06:59 06:59
Intake Total 2240 / 2240 480 / 480
Output Total 1350 / 1350 1025 / 1025 550 / 550
Balance 890 / 890 -545 / -545 -550 / -550
Review of Systems
-
History Source: Patient
All other systems: Reviewed and negative
Physical Exam
-
General: Well Developed, No Apparent Distress, Appears Chronically Ill and Other (Thin and frail)
HEENT: Normocephalic, Atraumatic, Moist Mucous Membranes and Anicteric
Respiratory: Clear to Auscultation and Non Labored Respirations; Negative Accessory Resp Muscle Use
Cardiac: Regular Rhythm and S1/S2; Negative Murmur, Rub or Gallop
GI: Soft, Nontender, Nondistended and Normal Bowel Sounds
Musculoskeletal: No Clubbing, No Cyanosis and No Edema
Skin: Warm, Dry and Normal Turgor; Negative Rash
Neuro: AO x 3 and Nonfocal/Grossly Intact
Psych: Calm
Data Reviewed
-
Diagnostic Radiology: Report Reviewed by me
Labs: Labs Reviewed by me
[2024-11-24] MEDS: HYDROCORTISONE 1% LOTION 1 APPLIC TOPICAL ×2 (12:22→22:49)
--- NOTE | 2024-11-24 12:28 | W.PN.NEPH.PH ---
Today's Communication / Plan
-
lasix
Assessment/Plan
-
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
emergency department with 2 days of worsening shortness of breath.
Renal consult for hyponatremia of 127 at the lowest. He has been running since admission to the low 130s he was getting diuretics for lower extremity swelling and CHF and the sodium dipped to 127.
Patient states his appetite is great he does not drink excessive water.
Impression.
Hyponatremia.
Metastatic lung cancer.
CHF.
Atrial fibrillation.
Plan.
lasix 20mg daily
follow BMP
for [facility] rehab
continue FR
-
-
Date of Service: November 24, 2024
CC / HPI / ROS
-
Chief Complaint:
Shortness of breath
History of Present Illness:
Patient with history of lung cancer CHF with diuretics presenting with hyponatremia
Na stable at 131
Weights down
BP stable
Review of Systems:
on RA
No chest pain or shortness of breath
Labs
-
Labs:
WBC 4.7 10^3/uL (4.8-10.8) L 11/23/24 05:49
RBC 3.53 10^6/uL (4.70-6.10) L 11/23/24 05:49
Hgb 10.3 g/dL (13.0-18.0) L 11/23/24 05:49
Hct 31.0 % (39.0-52.0) L 11/23/24 05:49
Plt Count 218 10^3/uL (130-400) 11/23/24 05:49
Sodium 131 mmol/L (135-145) L 11/24/24 05:46
Potassium 4.4 mmol/L (3.5-5.1) 11/24/24 05:46
Chloride 96 mmol/L (98-107) L 11/24/24 05:46
Carbon Dioxide 27 mmol/L (22-30) 11/24/24 05:46
BUN 21 mg/dl (9-20) H 11/24/24 05:46
Creatinine 0.6 mg/dL (0.7-1.3) L 11/24/24 05:46
eGFR > 60.00 11/24/24 05:46
Glucose 112 mg/dl (70-99) H 11/24/24 05:46
Calcium 7.8 mg/dl (8.4-10.2) L 11/24/24 05:46
Hpw-P-Aojrkgjbsjc Pept 3960 pg/ml 11/17/24 20:46
Albumin 2.9 g/dl (3.5-5.0) L 11/21/24 06:56
Physical Exam
-
Vital Signs:
Vital Signs
Temp Pulse Resp BP Pulse Ox
98.1 F 70 18 117/49 94
11/24/24 11:41 11/24/24 11:41 11/24/24 11:41 11/24/24 11:41 11/24/24 11:41
Cardiovascular:: Regular rate and rhythm
Respiratory:: Bilateral: Coarse
Lung Excursion:: Normal
Abdomen:: Nontender and Soft
Bowel Sounds:: Normal
Extremity Edema:: None: Bilateral:
[2024-11-24] MEDS: LASIX 20 MG PO (12:52)
--- NOTE | 2024-11-24 13:54 | W.DCSUMMARY ---
Discharge Summary
Discharge Data
Date of Admission: 11/18/24
Date of Discharge: 11/25/24
-
Pending Results: No
Hospital Course
Discharging Physician : Dr. Yohana Taylor
Disposition : SNF
Primary care physician : Dr. Jimenez Fitzpatrick
Principal Discharge diagnosis : Heart Failure preserved ejection fraction, acute exacerbation; Hyponatremia; SIADH
Hospital Course :
Mr. Adolfo Higgins is a 79 yo man with hx metastatic NSCLC complicated by SVC syndrome, afib on AC, COPD, HLD, presents to the ER 11/18 with 2 days worsening SOB, lower extremity swelling and weight gain.
In the emergency department he was afebrile, blood pressure was 117/90 with a pulse of 88 satting 98% on room air. CBC was unremarkable. Electrolytes BUN/creatinine were normal.
ECG shows sinus rhythm with right bundle at rate of 91 which is similar to prior except it was previously A-fib. Troponin was negative. BNP was more elevated to 3905 baseline around 1000. Chest x-ray shows cardiomegaly under his right diaphragm
which is similar to previous.
Patient was admitted to medicine with Oncology and Cardiology consulting. He was treated for acute heart failure exacerbation. He was given IV Lasix with improvement in symptoms and drop in weight from 64.2kg to 57 kg. TTE with EF 55-60%; mild TR
and trivial pericardial effusion.
Hospitalization complicated by hyponatremia thought 2/2 SIADH in setting of lung cancer and possible over-diuresis/dehydration. Nephrology consulted. Lasix held for several days and patient fluid restricted. Na improved prior to discharge > 130.
He is resume on his oral Lasix. He will get follow up labs in one week post discharge.
He is discharged to SNF. Patient will be able to receive Keytruda at SNF; Xgeva will be on hold, this was discussed with Oncology.
Time spent on discharge was 35 minutes.
Important imaging findings :
TTE 11/18/24
CONCLUSIONS
Limited follow up echo study.
Normal left ventricular size and function. Normal regional wall motion. Left
ventricular ejection fraction is 55-60%.
Mild tricuspid regurgitation.
Trivial pericardial effusion.
Dilated aortic root.
Compared with prior echo from Jul 2024, there is no significant change.
Indications:
heart failure
Procedure findings :
Discharge Plan
-
Patient Disposition: Home (Routine Discharge)
Discharge Diagnosis/Procedures: Acute HFpEF
Dyspnea
Lower extremity swelling
Hypoalbuminemia
Hyponatremia
Condition: Fair
Diet: 2 Gram Sodium and Restrict fluids to 48 oz
Additional Diets: Do not exceed 48 ounces of water intake daily
Activity: As tolerated
Driving Restrictions: No driving for 24 hours
Bathing Restrictions: None
Blood Work: BMP in 1 week
Specialty Instructions: Weigh Daily- Call MD for wt gain/loss 3 lbs overnight/5 lbs in 1 week
Instructions: *[facility] Heart Failure Instructions
Referrals:
Michael Parada MD, Resident [Family Practice Resident Year2] - in one to two weeks (if new family doc needed)
Jorge Dempsey MD [Active] - 11/27/24 12:40 pm (You have an appt to see Dr. eDmpsey's physician medical assistant ob gyn, Lori, at the [place] office on 11/27/24 at 12:40 PM. The office is also working on an appt for you to see Dr. Dempsey after that and we
will call you with the appt.)
Rere Sandoval, DO [Family Provider] - in less than 1 week (Your next dose of Keytruda has been scheduled for 11/26/24. Please call the office for questions or rescheduling.)
Additional Discharge Medication Instructions: Start Lasix 20 mg once daily
Stop taking ramipril
Prescriptions:
New
latanoprost 0.005 % Drops
1 drp BOTH EYES HS 30 Days Qty: 2.5 0RF
furosemide 20 mg Tablet
20 mg PO DAILY Qty: 30 0RF
hydrocortisone [Aquanil HC] 1 % Lotion
1 applic topical BID Qty: 120 0RF
Continued
travoprost 0.004 % drops
1 drp BOTH EYES HS
Patient Comments:
05/06/24: Substituted for latanoprost, last dose 05/05/24@21:26
ghvziugpbhgn-jcpqjiuh-liexdy Tablet
1 tab PO DAILY
Simbrinza 1-0.2 % Drops,Suspension
1 drp RIGHT EYE HS
umeclidinium-vilanterol [Anoro Ellipta] 62.5-25 mcg/actuation blister with device
1 inh INHALATION R QPM
Patient Comments:
05/06/24: Substituted for Spiriva Respimat, last dose 05/05/24@20:22
Eliquis 5 mg Tablet
5 mg PO BID Qty: 60 5RF
clobetasol 0.05 % Cream
1 applic TOPICAL DAILYPRN PRN (Reason: itching)
polyethylene glycol 3350 [HealthyLax] 17 gram Powder In Packet
17 g PO DAILYPRN PRN (Reason: constipation) Qty: 100 0RF
bisacodyl [Dulcolax (bisacodyl)] 10 mg Suppository
10 mg UT DAILYPRN PRN (Reason: if no bm x 3 days)
Fleet Enema 19-7 gram/118 mL Enema
118 ml UT DAILYPRN PRN (Reason: if no bm x 4 days)
albuterol sulfate 90 mcg/actuation Hfa Aerosol Inhaler
1 puff INHALATION R Q6HPRN PRN (Reason: sob)
oxycodone 5 mg tablet
5 mg PO .Q 4 TO 6 HR PRN (Reason: severe pain)
Rx Instructions:
NO MOR THAN 4 TAB IN 24 HR
sennosides-docusate sodium [Senokot-S] 8.6-50 mg Tablet
2 tab-cap PO HS
psyllium Packet
1 packet PO DAILY
rosuvastatin 20 mg Tablet
20 mg PO .DINNER
gabapentin 300 mg capsule
300 mg PO BID
Slow-Mag 71.5 mg Tablet,Delayed Release (Dr/Ec)
143 mg PO DAILY
fentanyl 50 mcg/hr Patch 72 Hour
1 patch TRANSDERMAL Q72H
metoprolol succinate 25 mg Capsule,Sprinkle,Er 24hr
12.5 mg PO . DINNER
Calcium 500mg With D3 25 Mcg
2 tab PO DAILY
Xgeva 120 mg/1.7 mL (70 mg/mL) Solution
120 mg SC .Q6WK
Keytruda
1 dose IV .Q3WK
levalbuterol tartrate 45 mcg/actuation Hfa Aerosol Inhaler
1 puff INHALATION DAILY
Discontinued
ramipril 5 mg Tablet
5 mg PO DAILY
Discharge Orders:
Discharge Patient (As Directed); Ordered 11/25/24
Ordered By: Yohana Taylor
Discharge Date and Time
Print Language: LIBERIAN
--- NOTE | 2024-11-24 16:15 | PTCARENOTE ---
Pt AAO x3, TRUJILLO; needs assistance with positioning; can transfer to chair with assist x1/walker; tires easily. VSS. Telemetry:NSR w ith PAC's; BBB. On room air- pulse ox 97%, pt with (+)orthopnea/BERNABE; occ cough- clear mucus. Abd soft, neno PO
well. Voids in urinal; also incont/spills urinal. Sacral foam dsg intact. Resting in bed at present, no c/o. Family at bedside. Will continue to monitor.
[2024-11-24] MEDS: CRESTOR 20 MG PO (17:15)
[2024-11-24] MEDS: TOPROL XL 12.5 MG PO (17:15)
--- NOTE | 2024-11-24 17:34 | CM ---
indicated pt can be discharged to SNF.
Spoke with Rachel at [facility] she was able to contact [facility] and confirm that Keytruda will be covered separately from SNF and be covered.
Xgeva will not be covered during rehab .Dr Sandoval oncology TT if med can be held while at rehab . She indicated yes.
Pt and Vincenzo son reviewed above.
[facility] can offer bed tomorrow.
Family has agreed to transport pt to [facility].
PLAN To [facility] tomorrow
[2024-11-24] MEDS: STRIVERDI RESPIMAT 2 PUFF INH (19:56)
[2024-11-24] MEDS: SPIRIVA RESPIMAT 2.5 MCG 2 PUFF INH (19:56)
[2024-11-24] MEDS: XALATAN OPHTHALMIC SOLUTION 1 DROP BOTH EYES (22:44)
[2024-11-24] MEDS: SENOKOT-S 2 TABLET PO (22:50)
[2024-11-24] MEDS: SIMBRINZA 1%-0.2% OPHTH SUSP 1 DROP RIGHT EYE (22:52)
[2024-11-25 03:08] VITALS: BP 117/48
[2024-11-25 07:14] LABS: Blood Urea Nitrogen 18 mg/dl (9-20); Calcium 7.9 mg/dl (8.4-10.2); Carbon Dioxide 29 mmol/L (22-30); Chloride 99 mmol/L (98-107); Estimated Creatinine Clearance 82 ml/min; Glucose 100 mg/dl (70-99); Potassium 4.3 mmol/L (3.5-5.1); Sodium 132 mmol/L (135-145); eGFR > 60.00
[2024-11-25 08:00] VITALS: BP 120/58
[2024-11-25] MEDS: ELIQUIS 5 MG PO (10:16)
[2024-11-25] MEDS: METAMUCIL, KONSYL 1 PACKET PO (10:16)
[2024-11-25] MEDS: LASIX 20 MG PO (10:17)
[2024-11-25] MEDS: MAG-TAB SR 168 MG PO (10:17)
[2024-11-25] MEDS: NEURONTIN 300 MG PO (10:17)
[2024-11-25] MEDS: HYDROCORTISONE 1% LOTION 1 APPLIC TOPICAL (10:17)
[2024-11-25 10:47] VITALS: BP 110/53; PULSE 65; O2SAT 93
[2024-11-25 10:55] VITALS: BP 115/53; PULSE 81
--- NOTE | 2024-11-25 11:42 | W.PN.HOSP.TC ---
Today's Communication/Plan
-
plan to DC to SNF today
Assessment / Plan
Assessment / Plan
Mr. Adolfo Higgins is a 79 yo man with hx metastatic NSCLC complicated by SVC syndrome receiving radiation, afib on AC, COPD, HLD, presetnst to the ER 11/18 with 2 days worsening SOB. He was admitted for treatment of acute heart failure.
#Acute HFpEF
-Unclear etiology; cannot rule out Keytruda induced process
-Echocardiogram with LVEF 55%, mild TR, dilated aortic root but unchanged from previous
-Presented with dyspnea/orthopnea, leg edema for over 2 weeks; BNP >4000
-On arrival was started on IV Lasix 40 mg twice daily, edema improving and adequate UOP
-Became euvolemic and was transition to oral Lasix however held due to hyponatremia - concern dehydration leading to SIADH; renal consulted
-Lasix held for several days, oral Lasix resumed with stable sodium this morning
continue with fluids restriction
#SIADH
-related to lung cancer, versus hypovolemia secondary to Lasix
-Sodium was normal but down to 127 as of 11/21, urine sodium 55 and urine osmolality 550
-Oral diuretic held, started on 48 ounce FR with improved sodium up to 132
-Na stable this AM post resuming daily Lasix
#Stage IV non-small cell lung cancer
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
#19-bacm-ycjo smoking history
#COPD/emphysema
-Right upper lung lesion, s/p XRT 2018; now on Keytruda
-Currently on Anora Ellipta for COPD maintenance
-Home regimen also includes denosumab
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
-Follows with radiation oncology
#AF/AFL
-Home medications include metoprolol succinate and Eliquis
-No history of ablations known; did have AVELINO cardioversion in 03/2023
-Heart rate currently WNL and regular
#Hypertension
-Home medications include metoprolol and ramipril
-No known history of hypertensive systemic disease
-BP currently well-controlled here
#HLD
-Home medications include Crestor, no known ASCVD history
#TASIA on AVS
-Discussed with primary ranch rider, no contraindication to AVS with HFpEF
-If echocardiogram with LVEF <45% in the future then AVS will be contraindicated
#Chronic pain with opiate dependence
-Related to bone metastases and cancer related pain
-Home regimen includes fentanyl patch, oxycodone, gabapentin
DVT prophylaxis: Home Eliquis
Diet: Low-cholesterol, JANEL, 50 oz FR
CODE STATUS: DNR
Anticipated Discharge: Today
Subjective/Interval History
-
Date of Service: November 25, 2024
feeling well
feels ready to leave the hospital
Objective Data
-
Labs:
Laboratory Results
11/25/24
06:02
Sodium 132 L
Potassium 4.3
Chloride 99
Carbon Dioxide 29
BUN 18
Creatinine 0.5 L
Glucose 100 H
Calcium 7.9 L
Vital Signs:
Vital Signs
Temp Pulse Resp BP Pulse Ox
98.3 F 61 18 120/58 98
11/25/24 08:00 11/25/24 10:17 11/25/24 08:00 11/25/24 10:17 11/25/24 08:00
I&O
11/24/24 11/25/24 11/26/24
06:59 06:59 06:59
Intake Total 480 / 480 420 / 420
Output Total 1025 / 1025 1725 / 1725 300 / 300
Balance -545 / -545 -1305 / -1305 -300 / -300
Review of Systems
-
History Source: Patient
All other systems: Reviewed and negative
Physical Exam
-
General: Well Developed, No Apparent Distress, Appears Chronically Ill and Other (Thin and frail)
HEENT: Normocephalic, Atraumatic, Moist Mucous Membranes and Anicteric
Respiratory: Clear to Auscultation and Non Labored Respirations; Negative Accessory Resp Muscle Use
Cardiac: Regular Rhythm and S1/S2; Negative Murmur, Rub or Gallop
GI: Soft, Nontender, Nondistended and Normal Bowel Sounds
Musculoskeletal: No Clubbing, No Cyanosis and No Edema
Skin: Warm, Dry and Normal Turgor; Negative Rash
Neuro: AO x 3 and Nonfocal/Grossly Intact
Psych: Calm
Data Reviewed
-
Diagnostic Radiology: Report Reviewed by me
Labs: Labs Reviewed by me
--- NOTE | 2024-11-25 11:47 | W.DS.TRANS ---
DC Summary - [employer]
-
Discharge Instructions:
Sleep Apnea Risk High
Discharge Diagnosis/Procedures Acute HFpEF
Dyspnea
Lower extremity swelling
Hypoalbuminemia
Hyponatremia
Diet 2 Gram Sodium,Restrict fluids to 48 oz
Additional Diets Do not exceed 48 ounces of water intake daily
Activity As tolerated
Driving Restrictions No driving for 24 hours
Bathing Restrictions None
Blood Work BMP in 1 week
Specialty Instructions Weigh Daily
Instructions: *[facility]CA Heart Failure Instructions
Stand-Alone Forms:
Changes to Home Medications: Yes
Discharge Medications:
DC Medications w/original date entered in emaze
brinzolamide 1 %-brimonidine 0.2 % eye drops,suspension (Simbrinza) 1 drp RIGHT EYE HS Eye Condition 04/09/23
grxzmotkovpl-qtmciuep-evhpcq tablet 1 tab PO DAILY Supplement 04/09/23
travoprost 0.004 % eye drops 1 drp BOTH EYES HS Eye Condition 04/09/23
umeclidinium 62.5 mcg-vilanterol 25 mcg/actuation powdr for inhalation (Anoro Ellipta) 1 inh inhalation R QPM Lung/Breathing Issues 04/09/23
apixaban 5 mg tablet (Eliquis) 5 mg PO BID #60 tabs 04/10/23
clobetasol 0.05 % topical cream 1 applic topical DAILYPRN PRN itching 05/02/24
polyethylene glycol 3350 17 gram oral powder packet (HealthyLax) 17 g PO DAILYPRN PRN constipation #100 ea 05/04/24
albuterol sulfate 90 mcg/actuation aerosol inhaler 1 puff inhalation R Q6HPRN PRN sob 05/14/24
bisacodyl 10 mg rectal suppository (Dulcolax (bisacodyl)) 10 mg WV DAILYPRN PRN if no bm x 3 days 05/14/24
oxycodone 5 mg tablet 10 mg PO .Q 4 TO 6 HR PRN severe pain 05/14/24
sodium phosphates 19 gram-7 gram/118 mL enema (Fleet Enema) 118 ml WV DAILYPRN PRN if no bm x 4 days 05/14/24
Calcium 500mg With D3 25 Mcg 2 tab PO DAILY Supplement 11/18/24
Keytruda 1 dose IV .Q3WK Cancer 11/18/24
denosumab 120 mg/1.7 mL (70 mg/mL) subcutaneous solution (Xgeva) 120 mg SC .Q6WK Cancer 11/18/24
fentanyl 50 mcg/hr transdermal patch 1 patch transdermal Q72H Pain 11/18/24
gabapentin 300 mg capsule 300 mg PO BID Neurological Condition 11/18/24
levalbuterol tartrate 45 mcg/actuation aerosol inhaler 1 puff inhalation DAILY Lung/Breathing Issues 11/18/24
magnesium chloride 71.5 mg (magnesium chloride) tablet,delayed release (Slow-Mag) 143 mg PO DAILY Supplement 11/18/24
metoprolol succinate 25 mg capsule sprinkle, ext. release 24 hr 12.5 mg PO . DINNER Blood Pressure 11/18/24
psyllium 1 packet PO DAILY Constipation 11/18/24
rosuvastatin 20 mg tablet 20 mg PO .DINNER High Cholesterol 11/18/24
sennosides 8.6 mg-docusate sodium 50 mg tablet (Senokot-S) 2 tab-cap PO HS Constipation 11/18/24
latanoprost 0.005 % eye drops 1 drp BOTH EYES HS 1 month #2.5 mL 11/20/24
furosemide 20 mg tablet 20 mg PO DAILY #30 tabs 11/24/24
Home Medication Changes
Start Lasix 20 mg once daily
Stop taking ramipril
Pending Results: No
--- NOTE | 2024-11-25 11:53 | CM ---
MD indicated pt can be discharged to SNF.
Spoke with Rachel at [facility] she was able to accept pt today.
Xgeva will not be covered during rehab .
Vincenzo son aware of dc and acceptance at [facility] today.
Family has agreed to transport pt to [facility].
IMM reviewed with Vincenzo He has copy.
[facility]
report [phone]
fax [phone]
PLAN To [facility]
[2024-11-25 12:02] VITALS: BP 125/68
--- NOTE | 2024-11-25 20:12 | W.PN.NEPH.PH ---
Today's Communication / Plan
-
dc
Assessment/Plan
-
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
emergency department with 2 days of worsening shortness of breath.
Renal consult for hyponatremia of 127 at the lowest. He has been running since admission to the low 130s he was getting diuretics for lower extremity swelling and CHF and the sodium dipped to 127.
Patient states his appetite is great he does not drink excessive water.
Impression.
Hyponatremia.
Metastatic lung cancer.
CHF.
Atrial fibrillation.
Plan.
lasix 20mg daily continues
follow BMP
for [facility] rehab
continue FR
-
-
Date of Service: November 25, 2024
CC / HPI / ROS
-
Chief Complaint:
Shortness of breath
History of Present Illness:
Patient with history of lung cancer CHF with diuretics presenting with hyponatremia
Na stable at 132
Weights down
BP stable
Review of Systems:
on RA
No chest pain or shortness of breath
Labs
-
Labs:
WBC 4.7 10^3/uL (4.8-10.8) L 11/23/24 05:49
RBC 3.53 10^6/uL (4.70-6.10) L 11/23/24 05:49
Hgb 10.3 g/dL (13.0-18.0) L 11/23/24 05:49
Hct 31.0 % (39.0-52.0) L 11/23/24 05:49
Plt Count 218 10^3/uL (130-400) 11/23/24 05:49
Sodium 132 mmol/L (135-145) L 11/25/24 06:02
Potassium 4.3 mmol/L (3.5-5.1) 11/25/24 06:02
Chloride 99 mmol/L (98-107) 11/25/24 06:02
Carbon Dioxide 29 mmol/L (22-30) 11/25/24 06:02
BUN 18 mg/dl (9-20) 11/25/24 06:02
Creatinine 0.5 mg/dL (0.7-1.3) L 11/25/24 06:02
eGFR > 60.00 11/25/24 06:02
Glucose 100 mg/dl (70-99) H 11/25/24 06:02
Calcium 7.9 mg/dl (8.4-10.2) L 11/25/24 06:02
Fqs-J-Hsmvdxeurle Pept 3960 pg/ml 11/17/24 20:46
Albumin 2.9 g/dl (3.5-5.0) L 11/21/24 06:56
Physical Exam
-
Vital Signs:
Vital Signs
Temp Pulse Resp BP Pulse Ox
97.8 F 78 18 125/68 98
11/25/24 12:02 11/25/24 12:02 11/25/24 12:02 11/25/24 12:02 11/25/24 12:02
Cardiovascular:: Regular rate and rhythm
Respiratory:: Bilateral: CTA
Lung Excursion:: Normal
Abdomen:: Nontender and Soft
Bowel Sounds:: Normal
Extremity Edema:: None: Bilateral:
--- NOTE | 2024-11-26 09:46 | W.HF.CON ---
Heart Failure
- LV Function
Left ventricular function study result: LV Ejection fraction >/= 50%
Ejection Fraction Percentage: 55-60
- ARNI
Patient already on ARNI: No
Heart Failure ARNI Not Indicated: LV Ejection Fraction >/= 40%
- ACEI/ARB
Patient already on ACEI/ARB: No
Heart Failure ACEI/ARB Not Indicated: LV Ejection Fraction > 40%
- Beta Rohan
Patient already on Evidence Based Beta Rohan: Yes
- Mineralocorticord Receptor Antagonist
Patient already on MRA: No
Heart Failure MRA Not Indicated: LV Ejection Fraction > 40%
- SGLT-2 Inhibitor
Patient already on SGLT-2 Inhibitor: No
Heart Failure SGLT-2 Inhibitor Not Indicated: LV Ejection Fraction >40%
- Afib Anticoagulation
Patient already on Anticoagulation for Afib: Yes
- NYHA CHF Classification
NYHA CHF Classification Level: Class III - Symptoms w/ min exertion, interferes w/ nml daily activity
- ACC/AHA Stage
ACC/AHA Stage: Stage C: Symptomatic Heart Failure
== END 2024-11-25 13:53 | DRG 291 ==
LOC: 4 EAST ACU 02:27
PROVIDERS: Emergency Medicine; Internal Medicine; Nurse Practitioner Gerontology; Specialist; ADMITTING PHYSICIAN Internal Medicine; ATTENDING PHYSICIAN Student in an Organized Health Care Education/Training Program; CONSULT PHYSICIAN Internal Medicine Nephrology; EMERGENCY PHYSICIAN Emergency Medicine; FAMILY PHYSICIAN Internal Medicine Hematology & Oncology; OTHER PHYSICIAN Internal Medicine Hematology & Oncology; OTHER PHYSICIAN Nuclear Medicine Nuclear Cardiology
DX: I11.0 Hypertensive heart disease with heart failure (principal); I50.31 Acute diastolic (congestive) heart failure; I87.1 Compression of vein; C34.90 Malignant neoplasm of unspecified part of unspecified bronchus or lung; C79.51 Secondary malignant neoplasm of bone; E22.2 Syndrome of inappropriate secretion of antidiuretic hormone; F11.20 Opioid dependence, uncomplicated; K57.20 Diverticulitis of large intestine with perforation and abscess without bleeding; F17.200 Nicotine dependence, unspecified, uncomplicated; Z66 Do not resuscitate; J43.9 Emphysema, unspecified; Z79.01 Long term (current) use of anticoagulants; I48.0 Paroxysmal atrial fibrillation; E78.00 Pure hypercholesterolemia, unspecified; Z85.118 Personal history of other malignant neoplasm of bronchus and lung; G89.3 Neoplasm related pain (acute) (chronic); M79.89 Other specified soft tissue disorders; E88.09 Other disorders of plasma-protein metabolism, not elsewhere classified; F10.21 Alcohol dependence, in remission; I70.0 Atherosclerosis of aorta; Z79.899 Other long term (current) drug therapy; Z92.3 Personal history of irradiation
CPT/HCPCS: 93308; 36415; 71046; 80048; 80053; 80061; 81003; 81015; 83735; 83880; 83930; 83935; 84300; 84443; 84484; 85025; 93005; 93321; 93325; 94640; 94660; 96374; 97116; 97163; 97167; 97530; 99285

== ENCOUNTER → 2024-11-28 12:46 | Outpatient (REF) | payer OTHER, MEDICARE, SELFPAY ==
[2024-11-28 13:30] LABS: % Basophils 0.8 % (0-2); % Immature Granulocytes 0.8 % (0-0.5); % Lymphocytes 5.3 % (20.5-51.1); % Monocytes 13.7 % (1.7-9.3); % Neutrophils 76.4 % (42.2-75.2); Absolute Eosinophils 0.1 10^3/uL (0-0.7); Absolute Lymphocytes 0.3 10^3/uL (1.2-3.4); Absolute Monocytes 0.7 10^3/uL (0.1-0.6); Absolute Neutrophils 3.6 10^3/uL (1.4-6.5); Hematocrit 28.8 % (39.0-52.0); Hemoglobin 9.4 g/dL (13.0-18.0); Mean Corp Hgb Conc. 32.6 g/dL (33.0-37.0); Mean Corpuscular Hgb 29.4 pg (27.0-31.0); Mean Platelet Volume 10.1 fL (7.4-10.4); Nucleated Red Blood Cells % 0 % (-); Platelet Count 250 10^3/uL (130-400); Red Cell Dist. Width 17.2 % (11.5-14.5); White Blood Cell Count 4.7 10^3/uL (4.8-10.8)
[2024-11-28 16:01] LABS: Blood Urea Nitrogen 28 mg/dl (9-20); Calcium 7.5 mg/dl (8.4-10.2); Carbon Dioxide 24 mmol/L (22-30); Chloride 101 mmol/L (98-107); Glucose 105 mg/dl (70-99); Magnesium 2.1 mg/dl (1.6-2.3); Potassium 4.3 mmol/L (3.5-5.1); Sodium 133 mmol/L (135-145); eGFR > 60.00
== END ==
LOC: OLABP 12:46
PROVIDERS: ATTENDING PHYSICIAN Family Medicine
DX: I50.9 Heart failure, unspecified (principal); R60.9 Edema, unspecified; E88.09 Other disorders of plasma-protein metabolism, not elsewhere classified; E87.1 Hypo-osmolality and hyponatremia
CPT/HCPCS: 36415; 80048; 83735; 85025

== ENCOUNTER → 2024-12-03 11:42 | Outpatient (REF) | payer OTHER, MEDICARE, SELFPAY ==
[2024-12-03 13:00] LABS: % Basophils 0.8 % (0-2); % Eosinophils 5.4 % (0-6); % Lymphocytes 6.6 % (20.5-51.1); % Monocytes 13.7 % (1.7-9.3); % Neutrophils 72.5 % (42.2-75.2); Absolute Eosinophils 0.3 10^3/uL (0-0.7); Absolute Immature Granulocytes 0.1 10^3/uL (0-0.05); Absolute Lymphocytes 0.3 10^3/uL (1.2-3.4); Absolute Monocytes 0.7 10^3/uL (0.1-0.6); Absolute Neutrophils 3.6 10^3/uL (1.4-6.5); Hematocrit 28.9 % (39.0-52.0); Hemoglobin 9.1 g/dL (13.0-18.0); Mean Corp Hgb Conc. 31.5 g/dL (33.0-37.0); Mean Corpuscular Hgb 29.1 pg (27.0-31.0); Mean Corpuscular Volume 92.3 fL (80.0-94.0); Mean Platelet Volume 10.5 fL (7.4-10.4); Nucleated Red Blood Cells % 0 % (-); Platelet Count 259 10^3/uL (130-400); Red Blood Cell Count 3.13 10^6/uL (4.70-6.10); Red Cell Dist. Width 17.9 % (11.5-14.5)
== END ==
LOC: OLABP 11:42
PROVIDERS: ATTENDING PHYSICIAN Family Medicine
DX: I50.9 Heart failure, unspecified (principal); R60.9 Edema, unspecified; E88.09 Other disorders of plasma-protein metabolism, not elsewhere classified; E87.1 Hypo-osmolality and hyponatremia; C78.00 Secondary malignant neoplasm of unspecified lung; C34.90 Malignant neoplasm of unspecified part of unspecified bronchus or lung; Z79.891 Long term (current) use of opiate analgesic; J44.9 Chronic obstructive pulmonary disease, unspecified; J43.9 Emphysema, unspecified; I48.0 Paroxysmal atrial fibrillation; I10 Essential (primary) hypertension; E78.5 Hyperlipidemia, unspecified; G47.33 Obstructive sleep apnea (adult) (pediatric)
CPT/HCPCS: 36415; 85025

== ENCOUNTER → 2024-12-04 10:14 | Outpatient (REF) | payer OTHER, MEDICARE, SELFPAY ==
[2024-12-04 10:50] LABS: Blood Urea Nitrogen 24 mg/dl (9-20); Calcium 7.9 mg/dl (8.4-10.2); Carbon Dioxide 26 mmol/L (22-30); Chloride 105 mmol/L (98-107); Glucose 87 mg/dl (70-99); Potassium 4.3 mmol/L (3.5-5.1); Sodium 136 mmol/L (135-145); eGFR > 60.00
== END ==
LOC: OLABP 10:14
PROVIDERS: ATTENDING PHYSICIAN Family Medicine
DX: Z79.891 Long term (current) use of opiate analgesic (principal); R60.9 Edema, unspecified; E88.09 Other disorders of plasma-protein metabolism, not elsewhere classified; C78.00 Secondary malignant neoplasm of unspecified lung; E22.2 Syndrome of inappropriate secretion of antidiuretic hormone; J44.9 Chronic obstructive pulmonary disease, unspecified; I48.0 Paroxysmal atrial fibrillation; I10 Essential (primary) hypertension; E78.5 Hyperlipidemia, unspecified; E87.1 Hypo-osmolality and hyponatremia
CPT/HCPCS: 36415; 80048; 83735

== ENCOUNTER → 2024-12-09 09:17 | Outpatient (REF) | payer MEDICARE, OTHER, SELFPAY ==
[2024-12-09 10:16] LABS: % Basophils 0.5 % (0-2); % Immature Granulocytes 0.3 % (0-0.5); % Lymphocytes 5.5 % (20.5-51.1); % Neutrophils 77.7 % (42.2-75.2); Absolute Eosinophils 0.3 10^3/uL (0-0.7); Absolute Lymphocytes 0.3 10^3/uL (1.2-3.4); Absolute Monocytes 0.6 10^3/uL (0.1-0.6); Absolute Neutrophils 4.5 10^3/uL (1.4-6.5); Hematocrit 32.5 % (39.0-52.0); Hemoglobin 10.5 g/dL (13.0-18.0); Mean Corp Hgb Conc. 32.3 g/dL (33.0-37.0); Mean Corpuscular Hgb 29.7 pg (27.0-31.0); Mean Corpuscular Volume 91.8 fL (80.0-94.0); Mean Platelet Volume 9.8 fL (7.4-10.4); Nucleated Red Blood Cells % 0 % (-); Platelet Count 247 10^3/uL (130-400); Red Blood Cell Count 3.54 10^6/uL (4.70-6.10); Red Cell Dist. Width 18.3 % (11.5-14.5); White Blood Cell Count 5.8 10^3/uL (4.8-10.8)
[2024-12-09 10:54] LABS: ALT (SGPT) 58 U/L (0-50); AST (SGOT) 30 U/L (17-59); Albumin 3.3 g/dl (3.5-5.0); Alkaline Phosphatase 134 U/L (38-126); Blood Urea Nitrogen 25 mg/dl (9-20); Calcium 8.1 mg/dl (8.4-10.2); Carbon Dioxide 28 mmol/L (22-30); Chloride 103 mmol/L (98-107); Glucose 105 mg/dl (70-99); Potassium 4.5 mmol/L (3.5-5.1); Sodium 136 mmol/L (135-145); Total Bilirubin 0.7 mg/dl (0.2-1.3); Total Protein 5.9 g/dl (6.3-8.2); eGFR > 60.00
== END ==
LOC: REG 09:17
PROVIDERS: ATTENDING PHYSICIAN Internal Medicine Hematology & Oncology; FAMILY PHYSICIAN Family Medicine
DX: C34.90 Malignant neoplasm of unspecified part of unspecified bronchus or lung (principal); C34.91 Malignant neoplasm of unspecified part of right bronchus or lung; C79.51 Secondary malignant neoplasm of bone; R53.82 Chronic fatigue, unspecified
CPT/HCPCS: 36415; 80053; 84443; 85025

== ENCOUNTER → 2025-01-05 13:16 | Outpatient (REF) | payer MEDICARE, OTHER, SELFPAY ==
[2025-01-05 14:34] LABS: % Basophils 0.3 % (0-2); % Eosinophils 0.5 % (0-6); % Immature Granulocytes 0.5 % (0-0.5); % Lymphocytes 4.4 % (20.5-51.1); % Monocytes 11.7 % (1.7-9.3); % Neutrophils 82.6 % (42.2-75.2); Absolute Lymphocytes 0.3 10^3/uL (1.2-3.4); Absolute Monocytes 0.7 10^3/uL (0.1-0.6); Absolute Neutrophils 4.7 10^3/uL (1.4-6.5); Hematocrit 34.1 % (39.0-52.0); Hemoglobin 10.7 g/dL (13.0-18.0); Mean Corp Hgb Conc. 31.4 g/dL (33.0-37.0); Mean Corpuscular Hgb 29.2 pg (27.0-31.0); Mean Corpuscular Volume 92.9 fL (80.0-94.0); Mean Platelet Volume 10.1 fL (7.4-10.4); Nucleated Red Blood Cells % 0 % (-); Platelet Count 245 10^3/uL (130-400); Red Blood Cell Count 3.67 10^6/uL (4.70-6.10); Red Cell Dist. Width 18.9 % (11.5-14.5); White Blood Cell Count 5.7 10^3/uL (4.8-10.8)
[2025-01-05 15:39] LABS: TSH Reflex To Free T4 3.15 uIU/ml (0.47-4.68)
[2025-01-05 21:03] LABS: ALT (SGPT) 29 U/L (0-50); AST (SGOT) 32 U/L (17-59); Albumin 3.8 g/dl (3.5-5.0); Alkaline Phosphatase 78 U/L (38-126); Blood Urea Nitrogen 39 mg/dl (9-20); Calcium 8.8 mg/dl (8.4-10.2); Carbon Dioxide 25 mmol/L (22-30); Chloride 102 mmol/L (98-107); Glucose 95 mg/dl (70-99); Potassium 4.9 mmol/L (3.5-5.1); Sodium 136 mmol/L (135-145); Total Bilirubin 0.7 mg/dl (0.2-1.3); Total Protein 6.6 g/dl (6.3-8.2); eGFR > 60.00
== END ==
LOC: REG 13:16
PROVIDERS: ATTENDING PHYSICIAN Internal Medicine Hematology & Oncology; FAMILY PHYSICIAN Family Medicine
DX: C79.51 Secondary malignant neoplasm of bone (principal); C34.90 Malignant neoplasm of unspecified part of unspecified bronchus or lung; C34.91 Malignant neoplasm of unspecified part of right bronchus or lung; R53.82 Chronic fatigue, unspecified
CPT/HCPCS: 36415; 80053; 84443; 85025

== ENCOUNTER → 2025-01-15 13:21 | Outpatient (REF) | payer MEDICARE, OTHER, SELFPAY | LOC: RAD 13:21 | PROVIDERS: ATTENDING PHYSICIAN Internal Medicine Hematology & Oncology; FAMILY PHYSICIAN Family Medicine | DX: C34.90 Malignant neoplasm of unspecified part of unspecified bronchus or lung (principal); C34.91 Malignant neoplasm of unspecified part of right bronchus or lung; C79.51 Secondary malignant neoplasm of bone | CPT/HCPCS: 71260; 74177; Q9967 ==

== ENCOUNTER 2025-01-20 20:58 | Emergency (ER) | payer MEDICARE, OTHER, SELFPAY ==
[2025-01-20 21:09] VITALS: BP 119/62
[2025-01-20 21:34] LABS: Hematocrit 31.9 % (39.0-52.0); Hemoglobin 10.5 g/dL (13.0-18.0); Mean Corp Hgb Conc. 32.9 g/dL (33.0-37.0); Mean Corpuscular Volume 91.4 fL (80.0-94.0); Nucleated Red Blood Cells % 0 % (-); Platelet Count 226 10^3/uL (130-400); Red Cell Dist. Width 18.4 % (11.5-14.5)
[2025-01-20 21:49] LABS: ALT (SGPT) 40 U/L (0-50); AST (SGOT) 51 U/L (17-59); Albumin 3.6 g/dl (3.5-5.0); Alkaline Phosphatase 111 U/L (38-126); Blood Urea Nitrogen 21 mg/dl (9-20); Calcium 8.2 mg/dl (8.4-10.2); Carbon Dioxide 26 mmol/L (22-30); Chloride 101 mmol/L (98-107); Glucose 150 mg/dl (70-99); Potassium 4.4 mmol/L (3.5-5.1); Sodium 134 mmol/L (135-145); Total Protein 6.3 g/dl (6.3-8.2); eGFR > 60.00
[2025-01-20 22:14] VITALS: BP 139/64
[2025-01-20 22:15] VITALS: BMI 20.5
--- NOTE | 2025-01-20 22:16 | EDRN ---
Pt here with his and son. Pt oriented to person, place and time, not to event. says pt was sleeping on sofa and she noted he moved and thought he was going to get up. Pt uses a walker to ambulate. Pt started tipping to side around 2029
and she asked him what was happening and he did not answer. Pt was 'in a rigid state and his eyes rolled back' she shook pt and called his name, pt remained rigid. Son got pt to upright position and says pt's eyes were stuck wide open and when he
came to, he asked pt to stick out his tongue - pt unable to follow commands. R fist was clenched, L hand was open. Episode lasted about 2 minutes. No hx seizures. Pt had incidental finding of infarct on a 2022 MRI brain scan - no symptoms. Hx
afib. PT was over this morning to see pt and she noted pt had trouble following instructions. Pt says he blamed that on his constipation which he got rid of - pt had BM while in waiting room 'four days worth of bowel movement came out.' Pt with
chronic R shoulder pain from torn rotator cuff. No cp, sob, abd pain, n/v/d, fever/chills/cough, urinary symptoms.
[2025-01-20 23:00] VITALS: BP 106/58
--- NOTE | 2025-01-21 00:03 | ED.GENMED ---
History of Present Illness
General
Chief Complaint: Change in Mental Status
Time Seen by Provider: 01/20/25 23:43
History of Present Illness
History of Present Illness:
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 states that patient was
sitting in recliner when she heard patient shift. states that she looked over and found patient staring blankly into space and rigid. She states that she called his name, attempted to slap his face multiple times but patient was unresponsive
for approximately 2 minutes. states that she called 911 and then patient came to, was questioning why she was calling ambulance. Patient states that he remembers event happening and felt like he was mumbling. states she doesn't remember
patient attempting to speak however. Patient denies any headache, numbness, weakness, tingling, chest pain, shortness of breath or recent urinary symptoms. Patient states he has been compliant with Eliquis. denies any shaking. denies
patient being confused after episode. No incontinence or tongue biting. Patient reports being compliant with Eliquis, has not missed any episodes. Patient reports chronic right shoulder pain ever since he had surgery on his right shoulder, states
he is seen by orthopedics 3 weeks ago who gave patient steroid shot
Past History
Past History
ED Past Medical History: HTN and Other (Diverticulitis)
ED Past Surgical History: Appendectomy, Orthopedic (Wrist surgery) and Tonsilectomy
Social History
Tobacco: Smoker
Alcohol: Occasional
Drug: None
Personal:
Living: with family
Employment: Employed
Phy Exam
Physical Exam
Physical Exam:
General: Alert, no acute distress
Head: NCAT
Eyes: clear conjunctiva, PERRLA, EOMI.
Neck: supple
Cardiac: regular rate and rhythm, no murmur
Lungs: clear to auscultation bilaterally. No wheezes, rales, or rhonchi. Speaking full unlabored sentences. No respiratory distress.
Abdomen: soft, nondistended nontender. No rebound or guarding.
MSK: no lower extremity edema bilaterally. No deformity
Skin: warm, dry
Neuro: Alert and oriented x3. Cranial nerves II through XII grossly intact no focal deficits. 5/5 strength bilateral upper and lower extremities. Sensation intact. No pronator drift. Normal finger-nose.
Course
Orders/Labs/Results
Orders:
Orders
01/20/25 21:23
CBC/With Diff [Complete Blood Count/With Diff] Urgent
CMP [Comprehensive Metabolic Panel] Urgent
01/21/25 00:01
CT Head W/o Iv Contrast Urgent
Comment:
Reason For Exam: transient ams, on eliquis, hx lung cancer
01/21/25 00:08
EKG [Electrocardiogram (*1)] Urgent
Reason for Study: Syncope
EKG- Treatment ONCE
Abnormal Lab Results
01/20/25
21:23
RBC 3.49 L 10^6/uL
(4.70-6.10)
Hgb 10.5 L g/dL
(13.0-18.0)
Hct 31.9 L %
(39.0-52.0)
MCHC 32.9 L g/dL
(33.0-37.0)
RDW 18.4 H %
(11.5-14.5)
Absolute Lymphs (auto) 0.3 L 10^3/uL
(1.2-3.4)
Absolute Monos (auto) 0.8 H 10^3/uL
(0.1-0.6)
Neutrophils % 81.7 H %
(42.2-75.2)
Lymphocytes % 4.2 L %
(20.5-51.1)
Monocytes % 11.4 H %
(1.7-9.3)
Sodium 134 L mmol/L
(135-145)
BUN 21 H mg/dl
(9-20)
Creatinine 0.6 L mg/dL
(0.7-1.3)
Glucose 150 H mg/dl
(70-99)
Calcium 8.2 L mg/dl
(8.4-10.2)
01/20/25 21:23
01/20/25 21:23
Vital Signs
Initial and Last Documented VS:
Initial Vital Signs
Temp Pulse Resp BP Pulse Ox
98.3 F 91 15 119/62 93
01/20/25 21:09 01/20/25 21:09 01/20/25 21:09 01/20/25 21:09 01/20/25 21:09
Last Documented Vital Signs
Temp Pulse Resp BP Pulse Ox
98.3 F 78 17 114/57 95
01/20/25 21:09 01/21/25 03:00 01/21/25 03:00 01/21/25 03:00 01/21/25 03:00
MDM/Problems Addressed
Differential Diagnosis Includes:
Intracranial hemorrhage, brain mass. Low suspicion for seizure given no reported postictal phase, patient states that he remembers it. Low suspicion for TIA given patient had no facial asymmetry or weakness, has been compliant with eliquis
MDM/Problems Addressed:
On reevaluation, patient had an episode of afib with rvr lasting <1 second and then spontaneously converted back to NSR. ?arrhythmia causing episode
Labs reviewed. Hemoglobin 10.5 (baseline). Glucose, creatinine, electrolytes wnl.
Ct head shows no acute intracranial hemorrhage, mass effect, or midline shift. Moderate global volume loss and chronic small vessel ischemic white matter change. No large territory infarct.
Discussed results with patient and at bedside. Patient continues to be asymptomatic, alert and oriented x3, neurologically intact. Stable for discharge home with cardiology/PCP follow up
*Pulse Oximetry
SaO2: 93
Oxygen Mode of Delivery: Room air
Patient hypoxic: no
*EKG
Interpreted by ED Provider?: Yes (EKG shows normal sinus rhythm at 80 bpm with OR 216 QTc 496 right bundle branch block)
*Critical Care Note
Total Time (30-74mins, 75-104mins- exclusive of procedures): Not Applicable
ED Attending Note
-
Portions of this chart may have been created with voice recognition software.� Occasional wrong word or��sound alike� substitutions may have occurred due to the inherent limitations of voice recognition software.
Discharge Plan
Departure
Patient Disposition: Home (Routine Discharge)
Date of Disposition: 01/21/25
Time of Disposition: 03:26
Patient with high blood pressure during this ER visit?: No
Discharge Problem:
Atrial fibrillation
Instructions: Altered Mental Status (DC)
Prescriptions:
No Action
travoprost 0.004 % drops
1 drp BOTH EYES HS
twqrhhailvcn-cbjcfsjc-efvyum Tablet
1 tab PO DAILY
Simbrinza 1-0.2 % Drops,Suspension
1 drp RIGHT EYE BID
umeclidinium-vilanterol [Anoro Ellipta] 62.5-25 mcg/actuation blister with device
1 inh INHALATION R QPM
Eliquis 5 mg Tablet
5 mg PO BID Qty: 60 5RF
polyethylene glycol 3350 [HealthyLax] 17 gram Powder In Packet
17 g PO DAILYPRN PRN (Reason: constipation) Qty: 100 0RF
bisacodyl [Dulcolax (bisacodyl)] 10 mg Suppository
10 mg OR DAILYPRN PRN (Reason: if no bm x 3 days)
albuterol sulfate 90 mcg/actuation Hfa Aerosol Inhaler
1 puff INHALATION R Q6HPRN PRN (Reason: sob)
oxycodone 5 mg tablet
5 mg PO .Q4-6HPRN PRN (Reason: severe pain)
Rx Instructions:
NO MOR THAN 4 TAB IN 24 HR
sennosides-docusate sodium [Senokot-S] 8.6-50 mg Tablet
2 tab-cap PO BID
psyllium Packet
1 packet PO DAILY
rosuvastatin 20 mg Tablet
20 mg PO .DINNER
gabapentin 300 mg capsule
300 mg PO BID
Slow-Mag 71.5 mg Tablet,Delayed Release (Dr/Ec)
143 mg PO DAILY
metoprolol succinate 25 mg Capsule,Sprinkle,Er 24hr
12.5 mg PO DAILY
Xgeva 120 mg/1.7 mL (70 mg/mL) Solution
120 mg SC Q6W
Keytruda
1 dose IV Q3W
levalbuterol tartrate 45 mcg/actuation Hfa Aerosol Inhaler
1 puff INHALATION DAILYPRN PRN (Reason: sob)
furosemide 20 mg Tablet
20 mg PO DAILY Qty: 30 0RF
fentanyl 25 mcg/hr Patch 72 Hour
1 patch TRANSDERMAL Q72H
Patient Comments:
with 12 mcg=37mcg
fentanyl 12 mcg/hr Patch 72 Hour
1 patch TRANSDERMAL Q72H
Patient Comments:
with 25mcg = 37mcg
hydrocortisone [Aquanil HC] 1 % lotion
1 applic topical DAILY
Patient Comments:
apply to both shoulders/arms
Calcium 500mg With D3 25mcg
2 tab PO DAILY
Referrals:
Jimenez Fitzpatrick MD [Family Provider, Family Practice]
Activity Restrictions/Additional Instructions:
Follow-up with cardiology in 1 to 2 days
Follow-up with primary care doctor in 1 to 2 days
Return to the emergency department for chest pain, shortness of breath, fever, change in mental status or new/worsening symptoms
Interventions
Interventions:
*Risk Screen - Suicide Last Done: 01/20/25 21:09
*General Assessment Last Done: 01/20/25 21:09
*Neglect/Abuse Screening Last Done: 01/20/25 21:09
*ED COVID-19 Vaccine History Last Done: 01/20/25 21:09
ED- Pulmonary Assessment Last Done: 01/20/25 22:34
ED- Neurological Assessment Last Done: 01/20/25 22:34
ED- Cardiac Assessment Last Done: 01/20/25 22:34
Discharge Date and Time
Print Language: COMORAN
[2025-01-21 02:38] VITALS: BP 119/61
[2025-01-21 03:00] VITALS: BP 114/57
--- NOTE | 2025-01-21 03:18 | EDRN ---
Pt lying quietly on stretcher, monitor showed an approximate 13 beat tachy rhythm and pt went back into NSR. Cardiac strip printed and Dr Delarosa informed.
== END 2025-01-21 03:48 | disposition home or self-care (01) ==
LOC: EMR 20:58
PROVIDERS: EMERGENCY PHYSICIAN Emergency Medicine; FAMILY PHYSICIAN Family Medicine
DX: I48.91 Unspecified atrial fibrillation (principal); I11.0 Hypertensive heart disease with heart failure; I50.9 Heart failure, unspecified; E78.00 Pure hypercholesterolemia, unspecified; F17.200 Nicotine dependence, unspecified, uncomplicated; J44.9 Chronic obstructive pulmonary disease, unspecified; Z79.01 Long term (current) use of anticoagulants; Z90.49 Acquired absence of other specified parts of digestive tract
CPT/HCPCS: 99284; 70450; 80053; 85025; 93005

== ENCOUNTER → 2025-01-26 13:13 | Outpatient (REF) | payer MEDICARE, OTHER, SELFPAY ==
[2025-01-26 14:18] LABS: Hematocrit 30.8 % (39.0-52.0); Hemoglobin 9.8 g/dL (13.0-18.0); Mean Corp Hgb Conc. 31.8 g/dL (33.0-37.0); Mean Corpuscular Volume 92.5 fL (80.0-94.0); Nucleated Red Blood Cells % 0 % (-); Platelet Count 234 10^3/uL (130-400); Red Cell Dist. Width 18.6 % (11.5-14.5)
[2025-01-26 14:48] LABS: ALT (SGPT) 37 U/L (0-50); AST (SGOT) 33 U/L (17-59); Albumin 3.4 g/dl (3.5-5.0); Alkaline Phosphatase 93 U/L (38-126); Blood Urea Nitrogen 27 mg/dl (9-20); Calcium 8.1 mg/dl (8.4-10.2); Carbon Dioxide 27 mmol/L (22-30); Chloride 100 mmol/L (98-107); Glucose 114 mg/dl (70-99); Potassium 4.5 mmol/L (3.5-5.1); Sodium 134 mmol/L (135-145); Total Protein 6.0 g/dl (6.3-8.2); eGFR > 60.00
== END ==
LOC: REG 13:13
PROVIDERS: ATTENDING PHYSICIAN Internal Medicine Hematology & Oncology; FAMILY PHYSICIAN Family Medicine
DX: C34.90 Malignant neoplasm of unspecified part of unspecified bronchus or lung (principal); C34.91 Malignant neoplasm of unspecified part of right bronchus or lung; C79.51 Secondary malignant neoplasm of bone; R53.82 Chronic fatigue, unspecified
CPT/HCPCS: 36415; 80053; 84443; 85025

== ENCOUNTER → 2025-02-16 13:11 | Outpatient (REF) | payer MEDICARE, OTHER, SELFPAY ==
[2025-02-16 13:46] LABS: Hematocrit 31.0 % (39.0-52.0); Hemoglobin 9.8 g/dL (13.0-18.0); Mean Corp Hgb Conc. 31.6 g/dL (33.0-37.0); Mean Corpuscular Volume 91.4 fL (80.0-94.0); Nucleated Red Blood Cells % 0 % (-); Platelet Count 252 10^3/uL (130-400); Red Cell Dist. Width 18.0 % (11.5-14.5)
[2025-02-16 14:50] LABS: ALT (SGPT) 64 U/L (0-50); AST (SGOT) 45 U/L (17-59); Albumin 3.5 g/dl (3.5-5.0); Alkaline Phosphatase 99 U/L (38-126); Blood Urea Nitrogen 27 mg/dl (9-20); Calcium 8.2 mg/dl (8.4-10.2); Carbon Dioxide 29 mmol/L (22-30); Chloride 100 mmol/L (98-107); Glucose 115 mg/dl (70-99); Potassium 4.3 mmol/L (3.5-5.1); Sodium 134 mmol/L (135-145); Total Protein 6.0 g/dl (6.3-8.2); eGFR > 60.00
[2025-02-16 14:52] LABS: C-Reactive Protein 48.90 mg/L (0.0-10.00)
[2025-02-16 15:22] LABS: TSH 4.06 uIU/ml (0.47-4.68)
[2025-02-19 00:55] LABS: Total T3 (Sendout) 65 ng/dL (80-200)
== END ==
LOC: REG 13:11
PROVIDERS: ATTENDING PHYSICIAN Internal Medicine Hematology & Oncology
DX: C34.90 Malignant neoplasm of unspecified part of unspecified bronchus or lung (principal); C34.91 Malignant neoplasm of unspecified part of right bronchus or lung; C79.51 Secondary malignant neoplasm of bone; R53.82 Chronic fatigue, unspecified
CPT/HCPCS: 36415; 80053; 84439; 84443; 84480; 85025; 85652; 86140

== ENCOUNTER → 2025-02-20 15:21 | Outpatient (REF) | payer MEDICARE, OTHER, SELFPAY | LOC: MRI 15:21 | PROVIDERS: ATTENDING PHYSICIAN Internal Medicine Hematology & Oncology; FAMILY PHYSICIAN Family Medicine | DX: G45.9 Transient cerebral ischemic attack, unspecified (principal); C34.90 Malignant neoplasm of unspecified part of unspecified bronchus or lung; C79.51 Secondary malignant neoplasm of bone; R53.82 Chronic fatigue, unspecified | CPT/HCPCS: 70553; A9575 ==

== ENCOUNTER 2025-02-21 19:03 | Observation (INO) | payer MEDICARE, OTHER, SELFPAY ==
[2025-02-21] VITALS (10 sets, daily range): BP systolic 102–116; BP diastolic 48–59; PULSE 2; BMI 20.4
[2025-02-21 15:57] LABS: Hematocrit 29.7 % (39.0-52.0); Hemoglobin 9.7 g/dL (13.0-18.0); Mean Corp Hgb Conc. 32.7 g/dL (33.0-37.0); Mean Corpuscular Volume 89.2 fL (80.0-94.0); Nucleated Red Blood Cells % 0 % (-); Platelet Count 242 10^3/uL (130-400); Red Cell Dist. Width 18.0 % (11.5-14.5)
[2025-02-21 16:17] LABS: ALT (SGPT) 62 U/L (0-50); AST (SGOT) 108 U/L (17-59); Albumin 3.3 g/dl (3.5-5.0); Alkaline Phosphatase 168 U/L (38-126); Blood Urea Nitrogen 30 mg/dl (9-20); Calcium 8.3 mg/dl (8.4-10.2); Carbon Dioxide 27 mmol/L (22-30); Chloride 102 mmol/L (98-107); Estimated Creatinine Clearance 83 ml/min; Glucose 141 mg/dl (70-99); Potassium 4.3 mmol/L (3.5-5.1); Sodium 135 mmol/L (135-145); Total Protein 5.8 g/dl (6.3-8.2); eGFR > 60.00
--- NOTE | 2025-02-21 16:32 | ED.GENMED ---
History of Present Illness
General
Chief Complaint: Fainting/Passed Out
Source: patient
Exam Limitations: none
Time Seen by Provider: 02/21/25 15:30
Nursing documentation reviewed up to this point in time: agreed with
History of Present Illness
History of Present Illness:
Patient is a 79-year-old male with stage IV non-small cell lung cancer, A-fib, hypertension hyperlipidemia presents to the ER for evaluation. Apparently prior to arrival patient was in bed and was heard by his son yelling. When the son got
upstairs patient was laying back with his arms out shaking and doing a snorting sound. He was' in and out of it.' Son reported that is
As per patient has a history of lung cancer which is presently stable. He is followed by Dr. Sandoval. He tells me he is scheduled for radiation to his right shoulder however this not cancer related. reports that this is a study and they
are doing low-dose radiation to help with arthritis.
Patient only recalls laying in bed and feeling flushed and a hot sensation going up his face.
He has no complaints now.
does report that he had a similar episode to this January 20 and because of this and to further evaluate that Dr. Sandoval ordered an MRI yesterday however they have not received results yet. He had the MRI done here.
Past History
Past History
ED Past Medical History: HTN and Other (Diverticulitis)
ED Past Surgical History: Appendectomy, Orthopedic (Wrist surgery) and Tonsilectomy
Social History
Tobacco: Smoker
Alcohol: Occasional
Drug: None
Personal:
Living: with family
Employment: Employed
Phy Exam
General Physical Exam
General Presentation: no apparent distress
General age: appears older than age
General Skin: warm and dry
General Habitus: elderly
General Mental: alert
General Hydration: appears well hydrated
Cardiovascular Exam
Cardiovascular Exam: regular rate/rhythm, no murmur and normal peripheral pulses
Pulmonary Exam
Pulmonary Exam: lungs clear and no respiratory distress
Neurological Exam
Neurological Exam: alert and oriented x3
Musculoskeletal Exam
Musculoskeletal Exam: full ROM and other (Slight decreased motion to right shoulder and discomfort to the area history of chronic arthritis no injury)
Skin Exam
Skin Exam: normal color and warm/dry
Psychiatric Exam
Psychiatric Exam: normal mood/affect
Course
Orders/Labs/Results
Orders:
Orders
02/21/25 Breakfast
Sodium, 2 Gram
At Your Request: Limited Participation
Fluid Restriction: 1440 mL/day (48 oz)
02/21/25 15:38
Electrocardiogram (*1) Urgent
Reason for Study: Fatigue / Weakness
EKG- Treatment ONCE
02/21/25 15:48
CMP [Comprehensive Metabolic Panel] Urgent
Complete Blood Count/With Diff Urgent
02/21/25 15:49
CXR2 [CR Chest - 2 Views ] Urgent
Comment:
Reason For Exam: hypoxic
02/21/25 17:08
CT Head W/o Iv Contrast Urgent
Comment:
Reason For Exam: possible seizure
0.9% Sodium Chloride 500 ml [Nss] 500 ml IV BOLUS
02/21/25 18:43
Admit/Transfer Patient As Directed
Co-Sign Provider:
Level of Care: Observation services
Assign to:: Telemetry
Physician / Group: Tanvir
Diagnosis: Change in Mental Status
Reason for Telemetry: Syncope
Date to Stop Telemetry: 02/23/25
Time to Stop Telemetry: 11:00
PRN Pain Medication Management As Directed
May give lesser potent ordered pain med per pt: Yes
preference::
Protocol:: Medication orders for pain may be administered in a
manner that supports deferring to patient preference
when the pt is:
- Requesting an ordered lesser potent pain medication.
Least to most potent pain medications are defined
as: acetaminophen < NSAID < tramadol < opioids
(morphine, oxycodone, hydromorphone).
- Requesting a lesser dose of the same medication IF
ORDERED.
- Requesting a less intrusive route of administration
if both routes are prescribed by the provider (PO <
IV).
02/21/25 18:46
Code Status As Directed
Resuscitation Status: Do not resuscitate
Reached after discussion with pt or family/Healthcare POA: Yes
DNR Bracelet Application ONCE
02/21/25 20:46
Acetaminophen [Tylenol] 650 mg PO Q4HPRN PRN
Apixaban [Eliquis] 5 mg PO BID
Brinzolamide/Brimonidine Tart [Simbrinza 1%-0.2% Ophth Susp] 1 drop RIGHT EYE BID
Docusate W/Senna [Senokot-S] 1 tablet PO BID
FentaNYL 12 MCG/HR PATCH [Duragesic 12 Mcg/Hr Patch] 1 patch TRANSDERM Q72H
FentaNYL 25 MCG/HR PATCH [Duragesic 25 Mcg/Hr Patch] 1 patch TRANSDERM Q72H
Gabapentin [Neurontin] 300 mg PO BID
Oxycodone [Roxicodone] 5 mg PO Q4HPRN PRN severe pain
Polyethylene Glycol Powder [Miralax] 17 grams PO DAILYPRN PRN constipation
REMOVE fentaNYL PATCH [Remove Duragesic Patch] 2 patch REMOVE Q72H
Rosuvastatin Calcium [Crestor] 20 mg PO QPM
02/21/25 20:46
Activity As Directed
Activity Level: Out of Bed- Chair
Fentanyl Patch Confirmation BID@[id number]
I&O [Intake/ Output] As Directed
Frequency: q12h
Orthostatic Vital Signs As Directed
Orthostatic VS Frequency: Daily
Precautions As Directed
Type of Precautions: Seizure
Teds [Anti-embolism (RANDALL) Hose] As Directed
Type: Knee high
Vital Signs As Directed
Frequency: Per unit guidelines
Weight As Directed
Frequency: Daily
02/21/25 22:00
Escitalopram Oxalate [Lexapro] 5 mg PO HS
Latanoprost [Xalatan Ophthalmic Solution] 1 drop BOTH EYES HS
02/22/25 05:39
Complete Blood Count/No Diff IN AM
Comprehensive Metabolic Panel IN AM
Magnesium IN AM
02/22/25 08:00
Furosemide [Lasix] 20 mg PO DAILY
Hydrocortisone [Hydrocortisone 1% Lotion] 1 applic TOPICAL DAILY
Metoprolol Xl [Toprol Xl] 12.5 mg PO DAILY
Psyllium [Metamucil, Konsyl] 1 packet PO DAILY
Tiotropium [place] 2.5 Mcg [Spiriva Respimat 2.5 Mcg] 2 puff INH R DAILY
02/23/25 11:00
DC Protocol for Telemetry ONCE
Abnormal Lab Results
02/21/25
15:48
WBC 10.9 H 10^3/uL
(4.8-10.8)
RBC 3.33 L 10^6/uL
(4.70-6.10)
Hgb 9.7 L g/dL
(13.0-18.0)
Hct 29.7 L %
(39.0-52.0)
MCHC 32.7 L g/dL
(33.0-37.0)
RDW 18.0 H %
(11.5-14.5)
Absolute Neuts (auto) 9.8 H 10^3/uL
(1.4-6.5)
Absolute Lymphs (auto) 0.2 L 10^3/uL
(1.2-3.4)
Absolute Monos (auto) 0.8 H 10^3/uL
(0.1-0.6)
Neutrophils % 89.6 H %
(42.2-75.2)
Lymphocytes % 2.1 L %
(20.5-51.1)
BUN 30 H mg/dl
(9-20)
Creatinine 0.6 L mg/dL
(0.7-1.3)
Glucose 141 H mg/dl
(70-99)
Calcium 8.3 L mg/dl
(8.4-10.2)
AST 108 H U/L
(17-59)
ALT 62 H U/L
(0-50)
Alkaline Phosphatase 168 H U/L
(38-126)
Total Protein 5.8 L g/dl
(6.3-8.2)
Albumin 3.3 L g/dl
(3.5-5.0)
02/21/25 15:48
02/21/25 15:48
Vital Signs
Initial and Last Documented VS:
Initial Vital Signs
Temp Pulse Resp BP Pulse Ox
98.3 F 87 26 112/57 89
02/21/25 15:32 02/21/25 15:32 02/21/25 15:32 02/21/25 15:32 02/21/25 15:32
Last Documented Vital Signs
Temp Pulse Resp BP Pulse Ox
97.8 F 58 20 123/54 99
02/22/25 03:29 02/22/25 03:29 02/22/25 03:29 02/22/25 03:29 02/22/25 03:29
MDM/Problems Addressed
Differential Diagnosis Includes:
Not limited to syncope, seizure, dehydration,
MDM/Problems Addressed:
As documented patient is a 79-year-old male with history of lung cancer currently stable being followed by Dr. Sandoval presents to the ER for evaluation. It is documented patient had an episode where he was heard yelling and found shaking almost as
if he was having a seizure. He was found by his son. Patient presents awake alert he recalls feeling a warm sensation to his head but does not recall anything else. He has no complaints presently. reports that patient had a previous episode
similar to this January 20 and was seen here in the ER discharged at that time. From reading that note appears that patient did recall all events at that time but on this event he does not. MRI was done yesterday. I spoke with radiology who was able
to look and does not feel that there is any metastasis or mass noted in the brain and so we will still get CAT scan. Patient does appear dry and his BUN is elevated 30 he is on fluid restriction however will give small fluid bolus note. No recent
fever chills he is afebrile white count 10.9 hemoglobin stable at 9.7
CT negative for acute findings. Labs further reviewed LFTs elevated however patient denies any abdominal pain abdomen soft nontender afebrile. With second concerning episode with questionable seizure/syncope activity in the past month would
recommend admission. pt is aaox3 now . Neuro and hospitalist made aware of admission.
Chronic conditions affecting care:
lung cancer
*Radiology
Radiology exam reviewed: radiology read reviewed
*Pulse Oximetry
SaO2: 95
Oxygen Mode of Delivery: Room air
Patient hypoxic: no
*Critical Care Note
Total Time (30-74mins, 75-104mins- exclusive of procedures): Not Applicable
Data Reviewed
Review of Other/Old Records Reveals: Labs, Radiology Studies and Discharge Summary
ED Attending Note
-
Portions of this chart may have been created with voice recognition software.� Occasional wrong word or��sound alike� substitutions may have occurred due to the inherent limitations of voice recognition software.
Discharge Plan
Departure
Patient Disposition: Admit
Date of Disposition: 02/21/25
Time of Disposition: 17:51
Admit to: Med/Surg
Admit to doctor: hospitalist
Presentation/result/management discussed w/ accepting MD/DO: Hospitalist
Patient with high blood pressure during this ER visit?: No
Condition: Fair
Covid-19: Not Applicable
Discharge Problem:
possible seizure, Elevated LFTs
Interventions
Interventions:
*Risk Screen - Suicide Last Done: 02/21/25 15:40
*General Assessment Last Done: 02/21/25 15:40
*Neglect/Abuse Screening Last Done: 02/21/25 15:40
*ED- Fall Risk Assessment Last Done: 02/21/25 15:40
*ED COVID-19 Vaccine History Last Done: 02/21/25 15:40
*Nursing Disposition Last Done: 02/21/25 20:30
ED- Cardiac Assessment Last Done: 02/21/25 15:50
ED- Neurological Assessment Last Done: 02/21/25 15:50
Discharge Date and Time
Discharge Date/Time: 02/21/25 20:35
[2025-02-21] MEDS: NSS 500 IV (17:35)
--- NOTE | 2025-02-21 18:06 | HPS.HSE ---
Family Physician
-
Family Physician: Jimenez Fitzpatrick
Chief Complaint
-
Unresponsive Episode
History of Present Illness
Patient is a 79 y/o male past medical history of metastatic lung cancer, chronic pain with opioid dependence, and atrial fibrillation on anticoagulation who presents following an unresponsive episode. Additional history is obtained from patient's
and son at bedside. Today patient was sitting on the edge of the bed when he states he felt a flushing sensation associated with dizziness. He called to his son who found patient laying on his back on the bed. Son notes patient than had
several recurrent episodes where his eye rolled back, patient was not talking and son noted some shaking. EMS was called and patient was brought to the emergency department for evaluation.
Patient a similar episode on January 20 where family noted he was leaning to unresponsive, leaning to one side and his body was rigid. Patient was seen in the ED and discharged home. He did have a brain MRI yesterday as part of the work-up following
this event, but report is pending.
Medical History
Past Medical History
Past Medical History: Reports Other
Additional Past Medical History:
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
SVC Syndrome
Chronic Pain with Opioid Dependence
Paroxysmal Atrial Fibrillation
Chronic HFpEF
SIADH
Essential Hypertension
Hyperlipidemia
COPD
BPH
Past Surgical History: Reports Other
Additional Past Surgical History:
Appendectomy
Hernia Repair
Right Shoulder Surgery
Left Wrist Carpectomy
Bilateral Cataracts
Social History
Tobacco: Former Smoker
Alcohol: None
Drug: None
Personal:
Family History
Family History: Not pertinent
Allergies / Home Medications
Allergies reflects when Allergies were last updated in [employer].
Home Medications with original date entered in [employer]
Allergy/Medication List:
Allergies
Allergy/AdvReac Type Severity Reaction Status Date / Time
Hayfever Allergy Sneezing, Uncoded 02/21/25 15:32
watery/itchy
eyes,
stuffy nose
Home Medications
brinzolamide 1 %-brimonidine 0.2 % eye drops,suspension (Simbrinza) 1 drp RIGHT EYE BID Eye Condition 04/09/23
lljkaghmolig-yquowhzj-pcpyze tablet 1 tab PO DAILY Supplement 04/09/23
travoprost 0.004 % eye drops 1 drp BOTH EYES HS Eye Condition 04/09/23
umeclidinium 62.5 mcg-vilanterol 25 mcg/actuation powdr for inhalation (Anoro Ellipta) 1 inh inhalation R QPM Lung/Breathing Issues 04/09/23
apixaban 5 mg tablet (Eliquis) 5 mg PO BID #60 tabs 04/10/23
polyethylene glycol 3350 17 gram oral powder packet (HealthyLax) 17 g PO DAILYPRN PRN constipation #100 ea 05/04/24
bisacodyl 10 mg rectal suppository (Dulcolax (bisacodyl)) 10 mg [place] DAILYPRN PRN if no bm x 3 days 05/14/24
oxycodone 5 mg tablet 5 mg PO .Q4-6HPRN PRN severe pain 05/14/24
Keytruda 1 dose IV Q3W Cancer 11/18/24
denosumab 120 mg/1.7 mL (70 mg/mL) subcutaneous solution (Xgeva) 120 mg SC Q6W Cancer 11/18/24
gabapentin 300 mg capsule 300 mg PO BID Neurological Condition 11/18/24
levalbuterol tartrate 45 mcg/actuation aerosol inhaler 1 puff inhalation DAILYPRN PRN sob 11/18/24
magnesium chloride 71.5 mg (magnesium chloride) tablet,delayed release (Slow-Mag) 143 mg PO DAILY Supplement 11/18/24
metoprolol succinate 25 mg capsule sprinkle, ext. release 24 hr 12.5 mg PO DAILY Blood Pressure 11/18/24
psyllium 1 packet PO DAILY Constipation 11/18/24
rosuvastatin 20 mg tablet 20 mg PO .DINNER High Cholesterol 11/18/24
sennosides 8.6 mg-docusate sodium 50 mg tablet (Senokot-S) 2 tab-cap PO BID Constipation 11/18/24
furosemide 20 mg tablet 20 mg PO DAILY #30 tabs 11/24/24
Calcium 500mg With D3 25mcg 2 tab PO BID 01/20/25
fentanyl 12 mcg/hr transdermal patch 1 patch transdermal Q72H 01/20/25
fentanyl 25 mcg/hr transdermal patch 1 patch transdermal Q72H 01/20/25
hydrocortisone 1 % lotion (Aquanil HC) 1 applic topical DAILY 01/20/25
escitalopram oxalate 5 mg tablet (Lexapro) 5 mg PO HS 02/21/25
sodium phosphates 19 gram-7 gram/118 mL enema (Fleet Enema) 118 ml [place] DAILY PRN IF NO BM X4 DAYS 02/21/25
Review of Systems
-
A 12 point ROS was completed and negative except as noted: Yes
Constitutional: Reports Chills; Denies Fever
Respiratory: Denies Cough or Trouble Breathing
Cardiac: Reports Syncope; Denies Chest Pain or Palpitations
Physical Exam
Vital Signs
Vital Signs
Temp Pulse Resp BP Pulse Ox
98.3 F 82 16 106/59 98
02/21/25 15:32 02/21/25 17:46 02/21/25 17:34 02/21/25 17:34 02/21/25 17:46
Physical Exam
General: Comfortable and Conversant
HEENT: Anicteric and Moist mucous membranes
Respiratory: Clear and Non Labored Respirations
Cardiac: S1/S2 and Regular Rhythm
GI: Soft and Non Tender
Rectal: Deferred by Provider
Musculoskeletal: No Clubbing, No Cyanosis and Other (+1 pitting edema bilateral lower extremities)
Skin: Warm and Dry
Neuro: Awake, Alert, Oriented and Nonfocal/grossly intact
Psych: Calm
Laboratory Results
-
02/21/25 15:48
02/21/25 15:48
Laboratory Results
Total Bilirubin 0.6 mg/dl (0.2-1.3) 02/21/25 15:48
AST 108 U/L (17-59) H 02/21/25 15:48
ALT 62 U/L (0-50) H 02/21/25 15:48
Alkaline Phosphatase 168 U/L (38-126) H 02/21/25 15:48
Data Reviewed
-
CT Scan: Report Reviewed by me
Lab Data: Labs Reviewed by me
Old Records: Reviewed
Impression/Plan
-
Unresponsive Episode, possibly seizure vs syncope
-Consult Neurology
-Monitor on Telemetry
-Check orthostatic VS
Elevated LFTS, patient without abdominal complaints at present time
-No documentation to indicate prior liver mets
-Check ABD US in AM
-Recheck LFTs in AM
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
SVC Syndrome s/p Radiation
-Patient receiving Xgeva and Keytruda
-Follows with Dr. Sandoval
Chronic Pain with Opioid Dependence
-Related to bone metastasis and cancer related pain
-Continue fentanyl patch, oxycodone and gabapentin as prior to admission
Paroxysmal Atrial Fibrillation
-Continue Eliquis
-Continue metoprolol for rate control
Chronic HFpEF
-Continue furosemide
-Monitor Daily weights
SIADH
-Sodium level stable
-Continue fluid restriction
Essential Hypertension
-Continue metoprolol with hold parameters
Hyperlipidemia
-Continue rosuvastatin
COPD, no acute exacerbation
-Continue umeclidinium-vilanterol
DVT proph: Eliquis
Code Status: DNR
--- NOTE | 2025-02-21 20:17 | W.PN.UPDATE ---
Update Note
Progress Note Update
Patient seen, examined and interviewed independently
Please see PA note for full details of admit
79 y/o man with a past medical history of:
metastatic lung cancer,
chronic pain with opioid dependence,
atrial fibrillation on anticoagulation
presents following an unresponsive episode. Most of history is obtained from patient's and son. Patient was sitting on the edge of the bed when he felt a flushing sensation and dizziness. He called to his son, and the son found him laying on
his back on the bed. Son observed several recurrent episodes where patient's eye rolled back, was not talking and had shaking. EMS was called and patient was brought to the emergency department. In the ER, the patient was comfortable.
Past Medical History
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
SVC Syndrome
Chronic Pain with Opioid Dependence
Paroxysmal Atrial Fibrillation
Chronic HFpEF
SIADH
Essential Hypertension
Hyperlipidemia
COPD
BPH
Appendectomy
Hernia Repair
Right Shoulder Surgery
Left Wrist Carpectomy
Bilateral Cataracts
Physical Exam
General: Comfortable
Respiratory: Clear
Cardiac: S1/S2
GI: Soft
Skin: Warm
Psych: Calm
Impression/Plan
1. Unresponsive Episode, possibly seizure vs syncope
Neurology consult
Telemetry
2. Elevated LFTS, without abdominal complaints
Check ABD US in AM
Recheck LFTs in AM
Please see PA note for full details on:
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
SVC Syndrome s/p Radiation
Chronic Pain with Opioid Dependence
Paroxysmal Atrial Fibrillation
Chronic HFpEF
SIADH
Essential Hypertension
Hyperlipidemia
COPD, no acute exacerbation
[2025-02-21] MEDS: DURAGESIC 12 MCG/HR PATCH 1 PATCH TRANSDERM (21:48)
[2025-02-21] MEDS: CRESTOR 20 MG PO (21:49)
[2025-02-21] MEDS: NEURONTIN 300 MG PO (21:49)
[2025-02-21] MEDS: DURAGESIC 25 MCG/HR PATCH 1 PATCH TRANSDERM (21:49)
[2025-02-21] MEDS: SENOKOT-S 1 TABLET PO (21:49)
[2025-02-21] MEDS: ELIQUIS 5 MG PO (21:49)
[2025-02-21] MEDS: ROXICODONE 5 MG PO (21:50)
[2025-02-21] MEDS: LEXAPRO 5 MG PO (21:50)
[2025-02-21] MEDS: SIMBRINZA 1%-0.2% OPHTH SUSP 1 DROP RIGHT EYE (21:53)
[2025-02-21] MEDS: REMOVE DURAGESIC PATCH 2 PATCH REMOVE (21:53)
[2025-02-21] MEDS: XALATAN OPHTHALMIC SOLUTION 1 DROP BOTH EYES (22:32)
--- NOTE | 2025-02-21 23:23 | TRANSFER ---
Pt transferred to 3W from ED, Pt pulled from stretcher to hospital bed. Pt AAOx3 and able to answer admission questions with help from spouse and son who are at bedside. Pt oriented to room, call torres within reach, plan of care ongoing.
[2025-02-22] VITALS (9 sets, daily range): BP systolic 90–124; BP diastolic 42–65; PULSE 2–74; BMI 21.7
[2025-02-22 05:49] LABS: Hematocrit 29.0 % (39.0-52.0); Hemoglobin 9.3 g/dL (13.0-18.0); Mean Corp Hgb Conc. 32.1 g/dL (33.0-37.0); Mean Corpuscular Volume 89.8 fL (80.0-94.0); Platelet Count 233 10^3/uL (130-400); Red Cell Dist. Width 18.0 % (11.5-14.5)
[2025-02-22 06:09] LABS: ALT (SGPT) 48 U/L (0-50); AST (SGOT) 41 U/L (17-59); Albumin 3.0 g/dl (3.5-5.0); Alkaline Phosphatase 142 U/L (38-126); Blood Urea Nitrogen 23 mg/dl (9-20); Calcium 7.9 mg/dl (8.4-10.2); Carbon Dioxide 30 mmol/L (22-30); Chloride 104 mmol/L (98-107); Estimated Creatinine Clearance 89 ml/min; Glucose 95 mg/dl (70-99); Magnesium 2.1 mg/dl (1.6-2.3); Potassium 3.7 mmol/L (3.5-5.1); Sodium 136 mmol/L (135-145); Total Protein 5.5 g/dl (6.3-8.2); eGFR > 60.00
[2025-02-22] MEDS: TYLENOL 650 MG PO ×2 (08:33→21:10)
[2025-02-22] MEDS: HYDROCORTISONE 1% LOTION 1 APPLIC TOPICAL (08:41)
[2025-02-22] MEDS: METAMUCIL, KONSYL 1 PACKET PO (08:41)
[2025-02-22] MEDS: ELIQUIS 5 MG PO ×2 (08:42→21:05)
[2025-02-22] MEDS: SENOKOT-S 1 TABLET PO ×2 (08:42→21:05)
[2025-02-22] MEDS: NEURONTIN 300 MG PO ×2 (08:42→21:05)
[2025-02-22] MEDS: LASIX 20 MG PO (08:42)
[2025-02-22] MEDS: TOPROL XL 12.5 MG PO (08:43)
[2025-02-22] MEDS: SIMBRINZA 1%-0.2% OPHTH SUSP 1 DROP RIGHT EYE ×2 (08:44→21:03)
[2025-02-22] MEDS: SPIRIVA RESPIMAT 2.5 MCG 2 PUFF INH (08:58)
[2025-02-22] MEDS: STRIVERDI RESPIMAT 2 PUFF INH (08:59)
--- NOTE | 2025-02-22 12:05 | W.PN.HOSP.TC ---
Addendum entered and electronically signed by Memo Chavez MD 02/22/25 13:34:
Syncope
-Likely convulsive syncope though cannot exclude seizure nor arrthymia
-Check orthostatics
-Check 2d echo
-Neuro consult
Transaminitis
-No documentation to indicate prior liver mets
-Abd ultrasound iwhtout acute findings
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
SVC Syndrome s/p Radiation
-Xgeva and Keytruda
-Follows with Dr. Sandoval
Chronic Pain with Opioid Dependence
-Related to bone metastasis and cancer related pain
-Continue fentanyl patch, oxycodone and gabapentin as prior to admission
Paroxysmal Atrial Fibrillation
-Continue Eliquis
-Continue metoprolol for rate control
Chronic HFpEF
-Continue furosemide
-Monitor Daily weights
SIADH
-Continue fluid restriction
Essential Hypertension
-Continue metoprolol with hold parameters
Hyperlipidemia
-Continue rosuvastatin
COPD, no acute exacerbation
-Continue MDI's
-Maintain spo2>88%-92% if supplemental o2 is needed
Original Note:
Today's Communication/Plan
-
Continue orthostatic monitoring
PT/OT following
Neurology following
Assessment / Plan
Assessment / Plan
79 year old male with past medical history of stage IV non-small cell lung cancer, arthritis, chronic pain with opioid dependence, BPH, glaucoma, COPD, and atrial fibrillation presents at the ER after being found unresponsive by his son. The patient
reports sitting on his bed when he suddenly felt lightheaded and having a 'hot flushing' sensation before the episode occurred. Eye rolling and some shaking noted by the son. Similar episode reported on earlier last month.
#Altered mental status
-Glucose- 141 at presentation now 95
-Carbon dioxide: 30
-Creatinine: 0.5
-Bun 23
-AST- 108, ALT- 62, Alk phosphatase- 168, bilirubin 0.6
Presently only Alk phosphatase remains to be elevated
-Hbg low 9.3
-WBC normal
ECG
SINUS RHYTHM WITH OCCASIONAL PREMATURE VENTRICULAR COMPLEXES
RIGHT BUNDLE BRANCH BLOCK
LEFT ANTERIOR FASCICULAR BLOCK
BIFASCICULAR BLOCK
ABNORMAL ECG
WHEN COMPARED WITH ECG OF 21-Jan-2025 00:31,
NO SIGNIFICANT CHANGE WAS FOUND
HEAD CT: no signs of abnormality
Chest X ray: bony metastasis, opacity, likely lung carcinoma previously noted. Stable moderate elevation of right hemidiphragm
There is loss of definition of the superior cortical margin of the left posterior seventh rib, which is likely from a bony metastatic lesion. There is also focal lucency involving the left inferolateral scapular body, which is likely a bony
metastatic lesion.
IMPRESSION:
Focal parenchymal opacity in the inferior aspect of the right lobe, stable from CT examination of January 15, 2025, and likely treated lung carcinoma.
Stable moderate elevation right hemidiaphragm.
Abdominal ultrasound:
Mild right hydronephrosis.
No other acute abnormality identified in the abdomen by ultrasound. No cholelithiasis or bile duct dilatation.
-Orthostatic v/s monitoring
-PT/OT following
-Neurology following
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
SVC Syndrome s/p Radiation
-on Xgeva and Keytruda
- as oncologist
Left shoulder pain
-bone metastasis pain
-Continue X RAY INSPECTOR fentanyl patch, oxycodone and gabapentin, aceteminophen 650 mg PO PRN
Essential Hypertension
Hyperlipidemia
-103/48
-Continue metoprolol
-Continue furosemide
-Continue rosuvastatin
COPD, no acute exacerbation
-continue Tiotropium bromide
-continue olodaterol
Glaucoma
-Continue Latanoprost 1 drop both eyes
-Continue Brinzolamide/Brimonidine Tartrate 1 drop right eye BID
Anticipated Discharge: 24 - 48 hours
Subjective/Interval History
-
Date of Service: February 22, 2025
The patient complains of left shoulder pain. He also reports feeling weak. No palpitations, headache, lightheadedness, or previously reported 'flushing' sensation noted.
Objective Data
-
Labs:
Laboratory Results
02/22/25
05:39
WBC 6.3
Hgb 9.3 L
Hct 29.0 L
Plt Count 233
Sodium 136
Potassium 3.7
Chloride 104
Carbon Dioxide 30
BUN 23 H
Creatinine 0.5 L
Glucose 95
Calcium 7.9 L
Total Bilirubin 0.6
AST 41
ALT 48
Alkaline Phosphatase 142 H
Vital Signs:
Vital Signs
Temp Pulse Resp BP Pulse Ox
98 F 55 20 103/48 98
02/22/25 11:17 02/22/25 11:17 02/22/25 11:17 02/22/25 11:17 02/22/25 11:17
I&O
02/21/25 02/22/25 02/23/25
06:59 06:59 06:59
Output Total 150 / 150
Balance -150 / -150
Review of Systems
-
History Source: Patient
Constitutional: Reports Fatigue and Weakness
Respiratory: Reports Other (denies cough, trouble breathing, wheezing noted)
Cardiac: Reports Other (Denies chest pain, palpitations)
Abdomen/GI: Reports Other (Denies abdominal pain, diarrhea, constipation)
Genitourinary: Reports Other (on external catheter)
Musculoskeletal: Reports Joint Pain (left shoulder pain)
Neuro: Reports Other (No headaches, numbness, lightheadedness noted)
Hematologic / Lymphatic: Reports Other (Denies bleeding)
Physical Exam
-
General: No Apparent Distress, Conversant, Appears Chronically Ill and Cachectic
HEENT: Normocephalic, Atraumatic and PERRLA
Respiratory: Non Labored Respirations
Cardiac: Regular Rhythm and S1/S2
GI: Soft, Nontender and Normal Bowel Sounds
Genito-urinary: Other (External catheter)
Musculoskeletal: No Cyanosis and No Edema
Skin: Warm and IV Access / Catheter Site
Neuro: AO x 3 and No Motor Deficits
Psych: Calm
--- NOTE | 2025-02-22 15:47 | CON.NEURO ---
Neuro Assessment/Plan
Assessment
brain MRI w/o and w/ gado imgs rev'd, no mets, no contrast enhancement, report pending
good story for second seizure. check EEG. start Keppra 500 BID
Consultation
Order
Date of Consultation: 02/22/25
Requesting Provider: Memo Chavez
Reason for Consult: seizure
Subjective/Objective
Subjective Data
Date of Service: February 22, 2025
from h&p:
Patient is a 79 y/o male past medical history of metastatic lung cancer, chronic pain with opioid dependence, and atrial fibrillation on anticoagulation who presents following an unresponsive episode. Additional history is obtained from patient's
and son at bedside. Today patient was sitting on the edge of the bed when he states he felt a flushing sensation associated with dizziness. He called to his son who found patient laying on his back on the bed. Son notes patient than had
several recurrent episodes where his eye rolled back, patient was not talking and son noted some shaking. EMS was called and patient was brought to the emergency department for evaluation.
Patient a similar episode on January 20 where family noted he was leaning to unresponsive, leaning to one side and his body was rigid. Patient was seen in the ED and discharged home. He did have a brain MRI yesterday as part of the work-up following
this event, but report is pending.
Objective Data
Vital Signs
Temp Pulse Resp BP Pulse Ox
36.6 C 55 20 103/48 98
02/22/25 11:17 02/22/25 11:17 02/22/25 11:17 02/22/25 11:17 02/22/25 11:17
Lab Results
02/22/25 05:39
02/22/25 05:39
Sodium 136 mmol/L (135-145) 02/22/25 05:39
Potassium 3.7 mmol/L (3.5-5.1) 02/22/25 05:39
BUN 23 mg/dl (9-20) H 02/22/25 05:39
Glucose 95 mg/dl (70-99) 02/22/25 05:39
Calcium 7.9 mg/dl (8.4-10.2) L 02/22/25 05:39
Patient Allergies
Hayfever Allergy (Uncoded 02/21/25 15:32)
Sneezing, watery/itchy eyes, stuffy nose
Medications
-
Active Medications
Generic Name Dose Route Start Last Admin
Trade Name Freq PRN Reason Stop Dose Admin
Acetaminophen 650 mg 02/21/25 20:46 02/22/25 08:33
Acetaminophen 325 Mg Tablet PO 03/21/25 20:45 650 mg
Q4HPRN PRN Administration
mild pain/ fever>100.5F
Apixaban 5 mg 02/21/25 20:46 02/22/25 08:42
Apixaban (Eliquis) 5 Mg Tablet PO 03/21/25 20:45 5 mg
BID RAFAEL Administration
Brinzolamide/Brimonidine Tartrate 1 drop 02/21/25 20:46 02/22/25 08:44
Brinzolamide 1%/Brimonidine 0.2% (Ophth Susp) 8 Ml Bottle RIGHT EYE 03/21/25 20:45 1 drop
BID RAFAEL Administration
Escitalopram Oxalate 5 mg 02/21/25 22:00 02/21/25 21:50
Escitalopram 5 Mg Tablet PO 03/21/25 21:59 5 mg
HS RAFAEL Administration
Fentanyl 1 patch 02/21/25 20:46 02/21/25 21:49
Fentanyl 25 Mcg/Hr Patch TRANSDERM 03/07/25 20:45 1 patch
Q72H RAFAEL Administration
Fentanyl 1 patch 02/21/25 20:46 02/21/25 21:48
Fentanyl 12 Mcg/Hr Patch TRANSDERM 03/07/25 20:45 1 patch
Q72H RAFAEL Administration
Furosemide 20 mg 02/22/25 08:00 02/22/25 08:42
Furosemide 20 Mg Tablet PO 03/22/25 07:59 20 mg
DAILY RAFAEL Administration
Gabapentin 300 mg 02/21/25 20:46 02/22/25 08:42
Gabapentin 300 Mg Capsule PO 03/21/25 20:45 300 mg
BID RAFAEL Administration
Hydrocortisone 1 applic 02/22/25 08:00 02/22/25 08:41
Hydrocortisone 1% (Lotion) 120 Ml Bottle TOPICAL 03/22/25 07:59 1 applic
DAILY RAFAEL Administration
Latanoprost 1 drop 02/21/25 22:00 02/21/25 22:32
Latanoprost 0.005% (Ophthalmic Solution) 2.5 Ml Bottle BOTH EYES 03/21/25 21:59 1 drop
HS RAFAEL Administration
Levetiracetam 500 mg 02/22/25 20:00
Levetiracetam 500 Mg Regular Release Tablet PO 03/22/25 19:59
BID RAFAEL
Magnesium 168 mg 02/23/25 15:30
Magnesium Lactate 84 Mg Tablet PO 03/23/25 15:29
DAILY RAFAEL
Metoprolol Succinate 12.5 mg 02/22/25 08:00 02/22/25 08:43
Metoprolol 12.5 Mg Extended Release Dose (1/2 Of 25 Mg Xl Tablet) PO 03/22/25 07:59 12.5 mg
DAILY RAFAEL Administration
Olodaterol 2 puff 02/22/25 08:00 02/22/25 08:59
Olodaterol (Striverdi Respimat) 2.5 Mcg Inhaler INH 03/22/25 07:59 2 puff
R DAILY RAFAEL Administration
Oxycodone HCl 5 mg 02/21/25 20:46 02/21/25 21:50
Oxycodone 5 Mg Regular Release Tablet PO 03/07/25 20:45 5 mg
Q4HPRN PRN Administration
severe pain
Patch Removal 2 patch 02/21/25 20:46 02/21/25 21:53
Remove Fentanyl Patch REMOVE 03/07/25 20:45 2 patch
Q72H RAFAEL Administration
Polyethylene Glycol 17 grams 02/21/25 20:46
Polyethylene Glycol Powder 17 Grams Packet PO 03/21/25 20:45
DAILYPRN PRN
constipation
Psyllium Hydrophilic Mucilloid 1 packet 02/22/25 08:00 02/22/25 08:41
Psyllium Packet PO 03/22/25 07:59 1 packet
DAILY RAFAEL Administration
Rosuvastatin Calcium 20 mg 02/21/25 20:46 02/21/25 21:49
Rosuvastatin (Crestor) 20 Mg Tablet PO 03/21/25 20:45 20 mg
QPM RAFAEL Administration
Senna/Docusate Sodium 1 tablet 02/21/25 20:46 02/22/25 08:42
Docusate W/Senna (Page-Colace) Tablet PO 03/21/25 20:45 1 tablet
BID RAFAEL Administration
Tiotropium Crawford 2 puff 02/22/25 08:00 02/22/25 08:58
Tiotropium (Spiriva Respimat) 2.5 Mcg Inhaler INH 03/22/25 07:59 2 puff
R DAILY RAFAEL Administration
Home Medications
�Medication �Instructions �Recorded
brinzolamide 1 %-brimonidine 0.2 % 1 drp RIGHT EYE BID Eye Condition 04/09/23
eye drops,suspension (Simbrinza)
nmbmpnnixozg-uhpljhpe-rlnmtk tablet 1 tab PO DAILY Supplement 04/09/23
travoprost 0.004 % eye drops 1 drp BOTH EYES HS Eye Condition 04/09/23
umeclidinium 62.5 mcg-vilanterol 1 inh inhalation R QPM 04/09/23
25 mcg/actuation powdr for Lung/Breathing Issues
inhalation (Anoro Ellipta)
apixaban 5 mg tablet (Eliquis) 5 mg PO BID #60 tabs 04/10/23
polyethylene glycol 3350 17 gram 17 g PO DAILYPRN PRN constipation 05/04/24
oral powder packet (HealthyLax) #100 ea
bisacodyl 10 mg rectal suppository 10 mg PA DAILYPRN PRN if no bm x 3 05/14/24
(Dulcolax (bisacodyl)) days
oxycodone 5 mg tablet 5 mg PO .Q4-6HPRN PRN severe pain 05/14/24
Keytruda 1 dose IV Q3W Cancer 11/18/24
denosumab 120 mg/1.7 mL (70 mg/mL) 120 mg SC Q6W Cancer 11/18/24
subcutaneous solution (Xgeva)
gabapentin 300 mg capsule 300 mg PO BID Neurological 11/18/24
Condition
levalbuterol tartrate 45 1 puff inhalation DAILYPRN PRN sob 11/18/24
mcg/actuation aerosol inhaler
magnesium chloride 71.5 mg 143 mg PO DAILY Supplement 11/18/24
(magnesium chloride)
tablet,delayed release (Slow-Mag)
metoprolol succinate 25 mg capsule 12.5 mg PO DAILY Blood Pressure 11/18/24
sprinkle, ext. release 24 hr
psyllium 1 packet PO DAILY Constipation 11/18/24
rosuvastatin 20 mg tablet 20 mg PO .DINNER High Cholesterol 11/18/24
sennosides 8.6 mg-docusate sodium 2 tab-cap PO BID Constipation 11/18/24
50 mg tablet (Senokot-S)
furosemide 20 mg tablet 20 mg PO DAILY #30 tabs 11/24/24
Calcium 500mg With D3 25mcg 2 tab PO BID Supplement 01/20/25
fentanyl 12 mcg/hr transdermal 1 patch transdermal Q72H Pain 01/20/25
patch
fentanyl 25 mcg/hr transdermal 1 patch transdermal Q72H Pain 01/20/25
patch
hydrocortisone 1 % lotion (Aquanil 1 applic topical DAILY 01/20/25
HC) Anti-Inflammatory
escitalopram oxalate 5 mg tablet 5 mg PO HS Mental Health/Anxiety 02/21/25
(Lexapro)
sodium phosphates 19 gram-7 118 ml PA DAILY PRN IF NO BM X4 02/21/25
gram/118 mL enema (Fleet Enema) DAYS
--- NOTE | 2025-02-22 16:21 | RESPNOTE ---
Respiratory: patient placed on Bilevel for nap, tolerating well.
[2025-02-22] MEDS: MAG-TAB SR 168 MG PO (17:57)
[2025-02-22] MEDS: CRESTOR 20 MG PO (17:57)
[2025-02-22] MEDS: OSCAL 500 + D 1000 MG PO (18:15)
[2025-02-22] MEDS: LEXAPRO 5 MG PO (21:04)
[2025-02-22] MEDS: KEPPRA 500 MG PO (21:05)
[2025-02-22] MEDS: XALATAN OPHTHALMIC SOLUTION 1 DROP BOTH EYES (21:18)
--- NOTE | 2025-02-22 21:30 | PTCARENOTE ---
Oral care was not performed on patient because he stated that it was his preference to use his personal electric toothbrush tomorrow morning when his brings it.
[2025-02-23] VITALS (10 sets, daily range): BP systolic 79–127; BP diastolic 50–56; PULSE 2; BMI 20.4
[2025-02-23 06:55] LABS: Hematocrit 30.5 % (39.0-52.0); Hemoglobin 9.7 g/dL (13.0-18.0); Mean Corp Hgb Conc. 31.8 g/dL (33.0-37.0); Mean Corpuscular Volume 90.8 fL (80.0-94.0); Platelet Count 234 10^3/uL (130-400); Red Cell Dist. Width 17.9 % (11.5-14.5)
[2025-02-23 07:13] LABS: Blood Urea Nitrogen 21 mg/dl (9-20); Calcium 7.9 mg/dl (8.4-10.2); Carbon Dioxide 27 mmol/L (22-30); Chloride 104 mmol/L (98-107); Estimated Creatinine Clearance 83 ml/min; Glucose 91 mg/dl (70-99); Potassium 3.9 mmol/L (3.5-5.1); Sodium 134 mmol/L (135-145); eGFR > 60.00
[2025-02-23] MEDS: SPIRIVA RESPIMAT 2.5 MCG 2 PUFF INH (07:21)
[2025-02-23] MEDS: STRIVERDI RESPIMAT 2 PUFF INH (07:21)
[2025-02-23] MEDS: KEPPRA 500 MG PO ×2 (08:46→20:50)
[2025-02-23] MEDS: OSCAL 500 + D 1000 MG PO ×2 (08:46→20:50)
[2025-02-23] MEDS: SENOKOT-S 1 TABLET PO ×2 (08:46→20:50)
[2025-02-23] MEDS: MAG-TAB SR 168 MG PO (08:46)
[2025-02-23] MEDS: LASIX 20 MG PO (08:46)
[2025-02-23] MEDS: ELIQUIS 5 MG PO ×2 (08:46→20:51)
[2025-02-23] MEDS: METAMUCIL, KONSYL 1 PACKET PO (08:46)
[2025-02-23] MEDS: NEURONTIN 300 MG PO ×2 (08:46→20:50)
[2025-02-23] MEDS: TOPROL XL PO (08:47)
[2025-02-23] MEDS: SIMBRINZA 1%-0.2% OPHTH SUSP 1 DROP RIGHT EYE ×2 (08:47→20:51)
[2025-02-23] MEDS: HYDROCORTISONE 1% LOTION 1 APPLIC TOPICAL (08:50)
[2025-02-23] MEDS: ROXICODONE 5 MG PO ×3 (08:53→17:20)
[2025-02-23] MEDS: MIRALAX 17 GRAMS PO (13:30)
--- NOTE | 2025-02-23 14:23 | CM ---
Addendum entered by Dianna Dixon 02/23/25 14:30:
Await PT/OT david
Original Note:
Patient seen at bedside with
IA completed
HERNANDEZ form explained. In chart
Lives with and son in 1 story home, 2 [address], bed/bath on 1st floor
PLOF: Independent with walker
DME: Walker, cane, shower chair, commode
Has had [facility] in past, [facility] and [facility] in the past
PCP: Jimenez Fitzpatrick
Pharmacy: [facility]
PLAN: tbd, follow hospital progress, CM to follow for needs
--- NOTE | 2025-02-23 15:01 | W.PN.HOSP.TC ---
Addendum entered and electronically signed by Manjit Oscar MD 02/23/25 23:04:
Attending Addendum-
I saw and evaluated the patient. I reviewed the resident�s note and agree with findings and plan as documented in the resident�s note. Sub: Seen with present. No further episodes of syncope. Does complain if exquisit tenderness of right
shoulder. No fevers chills. Full 12 point ROS reviewed and negative except as documented Exam: Vitals reviewed in chart GEN-mild distress due to pain, heart RRR lungs clear abd soft LE no edema Neuro AAO x 3 RUE tender to pain right AC joint.
limited ROM.
Plan:
-Syncope
-Likely convulsive syncope
-MRI 02/20-No acute intracranial abnormality. Chronic findings
-Check orthostatics
-2d echo 02/23--Normal left ventricular size and function. Normal regional wall motion. Left ventricular ejection fraction is 55-60%
-Neuro input appreciated - check EEG as OP but will likely not currency exchange specialist
-cont new keppra
# Transaminitis
-resolved
-avoid Tylenol
-abd US-no sig findings except mild rt hydro
# Right Shoulder Pain
- arthritic
- has h/o resolved lytic lesions
- cont pain control / PT OT
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
-SVC Syndrome s/p Radiation
-Xgeva and Keytruda
-Follows with Dr. Sandoval/Gisela - made aware of patient being in hospital
# Chronic Pain with Opioid Dependence
-Related to bone metastasis and cancer related pain
-Continue fentanyl patch, oxycodone and gabapentin as prior to admission
#Paroxysmal Atrial Fibrillation
-Continue Eliquis
-Continue metoprolol for rate control
#Chronic HFpEF
-Continue furosemide
-Monitor Daily weights
#SIADH
-Continue fluid restriction
#Essential Hypertension
-Continue metoprolol with hold parameters
#Hyperlipidemia
-Continue rosuvastatin
#COPD, no acute exacerbation
-Continue MDI's
-Maintain spo2>88%-92% if supplemental o2 is needed
# Depression- cont lexapro
DVTp-Eliquis
CODE- DNR
Dispo PT OT rec SNF- DC to SNF when able likely in am
Time spent coordinating care, review of plan of care with resident, personally reviewed records in EMR, med rec, consults, notes, labs, radiology, d/w nursing and POA� 51 mins
Original Note:
Today's Communication/Plan
-
Continue orthostatic monitoring
EEG per neurology
PT/OT following
Neurology following
Assessment / Plan
Assessment / Plan
79 year old male with past medical history of stage IV non-small cell lung cancer, arthritis, chronic pain with opioid dependence, BPH, glaucoma, COPD, and atrial fibrillation presents at the ER after being found unresponsive by his son. The patient
reports sitting on his bed when he suddenly felt lightheaded and having a 'hot flushing' sensation before the episode occurred. Eye rolling and some shaking noted by the son. Similar episode reported on earlier last month.
#Altered mental status
-Glucose- 141 at presentation now 95
-Carbon dioxide: 30
-Creatinine: 0.5
-Bun 23
-AST- 108, ALT- 62, Alk phosphatase- 168, bilirubin 0.6
Presently only Alk phosphatase remains to be elevated
-Hbg low 9.3
-WBC normal
ECG
SINUS RHYTHM WITH OCCASIONAL PREMATURE VENTRICULAR COMPLEXES
RIGHT BUNDLE BRANCH BLOCK
LEFT ANTERIOR FASCICULAR BLOCK
BIFASCICULAR BLOCK
ABNORMAL ECG
WHEN COMPARED WITH ECG OF 21-Jan-2025 00:31,
NO SIGNIFICANT CHANGE WAS FOUND
HEAD CT: no signs of abnormality
Chest X ray: bony metastasis, opacity, likely lung carcinoma previously noted. Stable moderate elevation of right hemidiphragm
There is loss of definition of the superior cortical margin of the left posterior seventh rib, which is likely from a bony metastatic lesion. There is also focal lucency involving the left inferolateral scapular body, which is likely a bony
metastatic lesion.
IMPRESSION:
Focal parenchymal opacity in the inferior aspect of the right lobe, stable from CT examination of January 15, 2025, and likely treated lung carcinoma.
Stable moderate elevation right hemidiaphragm.
Abdominal ultrasound:
Mild right hydronephrosis.
No other acute abnormality identified in the abdomen by ultrasound. No cholelithiasis or bile duct dilatation.
ECHO (02/23/2025): Normal left ventricular size and function. Normal regional wall motion. Left
ventricular ejection fraction is 55-60% by visual assessment.
Mildly dilated aortic root. No significant change from last ECHO
EEG (02/23/2025):
Diffuse cortical dysfunction without focal abnormality. No seizures were recorded.
-Levetiracetam 500mg PO BID
-Orthostatic v/s monitoring
-Neurology following
-PT/OT following
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
SVC Syndrome s/p Radiation
-on Xgeva and Keytruda
- as oncologist
Right shoulder pain
-most likely arthritic pain
-Continue GLACIOLOGIST fentanyl patch, oxycodone and gabapentin
History of Atrial Fibrillation
-Continue Eliquis
-Continue metoprolol
Essential Hypertension
-121/54 today
-continue furosemide
Hyperlipidemia
-Continue rosuvastatin
COPD, not in acute exacerbation
Glaucoma
-Continue Latanoprost 1 drop both eyes
-Continue Brinzolamide/Brimonidine Tartrate 1 drop right eye BID
Anticipated Discharge: 24 - 48 hours
Subjective/Interval History
-
Date of Service: February 23, 2025
The patient continues to have right shoulder pain and weakness. No palpitations, and recurrence of 'flushing' sensation prior to episode of unresponsiveness reported.
Objective Data
-
Labs:
Laboratory Results
02/23/25
06:32
WBC 5.7
Hgb 9.7 L
Hct 30.5 L
Plt Count 234
Sodium 134 L
Potassium 3.9
Chloride 104
Carbon Dioxide 27
BUN 21 H
Creatinine 0.4 L
Glucose 91
Calcium 7.9 L
Vital Signs:
Vital Signs
Temp Pulse Resp BP Pulse Ox
97.8 F 100 18 121/54 94
02/23/25 12:00 02/23/25 12:00 02/23/25 12:00 02/23/25 12:00 02/23/25 13:20
I&O
02/22/25 02/23/25 02/24/25
06:59 06:59 06:59
Intake Total 1440 / 1440
Output Total 150 / 150 1550 / 1550
Balance -150 / -150 -110 / -110
Review of Systems
-
History Source: Patient
Constitutional: Reports Fatigue and Weakness
Respiratory: Reports Other (denies cough, trouble breathing, wheezing noted)
Cardiac: Reports Other (Denies chest pain, palpitations)
Abdomen/GI: Reports Other (Denies abdominal pain, diarrhea, bloody stools)
Genitourinary: Reports Other (on external catheter)
Musculoskeletal: Reports Joint Pain (right shoulder pain)
Neuro: Reports Other (Denies headaches, numbness, lightheadedness noted)
Hematologic / Lymphatic: Reports Other (Denies bleeding)
Physical Exam
-
General: Conversant, Appears Chronically Ill and Cachectic
HEENT: Normocephalic, Atraumatic and PERRLA
Respiratory: Non Labored Respirations
Cardiac: Regular Rhythm and S1/S2
GI: Soft, Nondistended and Normal Bowel Sounds
Genito-urinary: Other (External catheter)
Musculoskeletal: No Cyanosis and No Edema
Skin: Warm and IV Access / Catheter Site
Neuro: AO x 3 and No Motor Deficits
Psych: Calm
--- NOTE | 2025-02-23 16:44 | PTCARENOTE ---
Pt's spouse expressed concern and displeasure about her husbands care. made aware and saw pt and spouse @bedside to discuss POC. While pt is being cleaned by PCT's caring for the pt, family members pulling back the curtain saying 'don't test my
patience today, you guys could be more gentle' as pt is yelling out in pain. PRN medications administered prior to turning/repositioning and pt handled delicately by staff due to pt's shoulder pain. Family members requesting MD from [place] be
consulted. MD made aware. real estate operations manager made aware of situation. POC ongoing. Pt's call torres in reach.
--- NOTE | 2025-02-23 16:48 | EEG.RPT ---
Electroencephalogram Report
Recording
Date of EE02/23/25
Type of EEG: Routine
Length of EEG recordin minutes
Done with Video Recording: Yes
Patient Status: Inpatient
Recording Conditions: Awake and Drowsy
Hyperventilation Performed: No
Photic Stimulation Performed: Yes
Report
LESS THAN 1 HOUR EEG REPORT
LESS THAN 1 HOUR EEG INTERPRETATION:
Mildly abnormal EEG for age due to diffuse bihemispheric slowing
CLINICAL CORRELATION:
This study was suggestive of diffuse cortical dysfunction without focal abnormality. No seizures were recorded.
Clinical correlation is advised.
METHODS:
A 21 channel digitized electroencephalogram (EEG) was performed at the bedside. The 10/20 international system of electrode placement was used with ECG and lateral/vertical eye movements recorded. Persyst QEEG monitoring was performed.
QUALITY OF STUDY:
Good
ELECTROENCEPHALOGRAPHER IMPRESSION(S):
Background
There was a low amplitude unorganized anterior-posterior voltage gradient of theta frequency
There were no significant asymmetries of background activity noted.
Sleep
Drowsiness present
Photic Stimulation
Failed to activate the record.
ECG
Normal sinus rhythm
--- NOTE | 2025-02-23 16:50 | EEG.RPT ---
Electroencephalogram Report
Recording
Date of EE02/23/25
Type of EEG: Routine
[2025-02-23] MEDS: CRESTOR 20 MG PO (17:23)
[2025-02-23] MEDS: LEXAPRO 5 MG PO (21:46)
[2025-02-23] MEDS: XALATAN OPHTHALMIC SOLUTION 1 DROP BOTH EYES (21:46)
[2025-02-24 02:25] VITALS: PULSE 2
[2025-02-24 03:00] VITALS: BP 119/58
[2025-02-24] MEDS: SPIRIVA RESPIMAT 2.5 MCG 2 PUFF INH (07:39)
[2025-02-24] MEDS: STRIVERDI RESPIMAT 2 PUFF INH (07:39)
[2025-02-24 07:42] VITALS: BP 156/88
[2025-02-24 07:54] LABS: Hematocrit 31.8 % (39.0-52.0); Hemoglobin 10.0 g/dL (13.0-18.0); Mean Corp Hgb Conc. 31.4 g/dL (33.0-37.0); Mean Corpuscular Volume 90.3 fL (80.0-94.0); Platelet Count 249 10^3/uL (130-400); Red Cell Dist. Width 17.8 % (11.5-14.5)
[2025-02-24] MEDS: TOPROL XL 12.5 MG PO (08:32)
[2025-02-24] MEDS: OSCAL 500 + D 1000 MG PO ×2 (08:33→20:07)
[2025-02-24] MEDS: NEURONTIN 300 MG PO ×2 (08:33→20:05)
[2025-02-24] MEDS: SENOKOT-S 1 TABLET PO ×2 (08:33→20:08)
[2025-02-24] MEDS: MAG-TAB SR 168 MG PO (08:33)
[2025-02-24] MEDS: LASIX 20 MG PO (08:33)
[2025-02-24] MEDS: KEPPRA 500 MG PO ×2 (08:33→20:06)
[2025-02-24] MEDS: ELIQUIS 5 MG PO ×2 (08:33→20:08)
[2025-02-24] MEDS: SIMBRINZA 1%-0.2% OPHTH SUSP 1 DROP RIGHT EYE (08:34)
[2025-02-24] MEDS: METAMUCIL, KONSYL 1 PACKET PO (08:34)
[2025-02-24] MEDS: HYDROCORTISONE 1% LOTION 1 APPLIC TOPICAL (08:34)
[2025-02-24 09:18] LABS: ALT (SGPT) 31 U/L (0-50); AST (SGOT) 26 U/L (17-59); Albumin 3.0 g/dl (3.5-5.0); Alkaline Phosphatase 113 U/L (38-126); Blood Urea Nitrogen 14 mg/dl (9-20); Calcium 8.5 mg/dl (8.4-10.2); Carbon Dioxide 29 mmol/L (22-30); Chloride 99 mmol/L (98-107); Estimated Creatinine Clearance 83 ml/min; Glucose 109 mg/dl (70-99); Potassium 4.2 mmol/L (3.5-5.1); Sodium 132 mmol/L (135-145); Total Protein 5.5 g/dl (6.3-8.2); eGFR > 60.00
--- NOTE | 2025-02-24 09:54 | W.PN.HOSP.TC ---
Addendum entered and electronically signed by Manjit Oscar MD 02/24/25 22:58:
Attending Addendum-
I saw and evaluated the patient. I reviewed the resident�s note and agree with findings and plan as documented in the resident�s note. Sub: Seen with present. No further episodes of syncope or seizure episodes. Dcontinues to have exquisite
tenderness of right shoulder. No fevers chills. Full 12 point ROS reviewed and negative except as documented Exam: Vitals reviewed in chart GEN-NAD, heart RRR lungs clear abd soft LE no edema Neuro AAO x 3 RUE tender to pain right AC joint. limited
ROM.
Plan:
-Syncope
-Likely convulsive syncope likely due to vasodiltion
-MRI 02/20-No acute intracranial abnormality. Chronic findings
-Check orthostatics
-2d echo 02/23--Normal left ventricular size and function. Normal regional wall motion. Left ventricular ejection fraction is 55-60%
-Neuro input appreciated - check EEG as OP but will likely not change room attendant
-cont new keppra prophalactically
c/s heme onc - not due to keytruda - f/u neuro and cards as OP
# Transaminitis
-resolved
-avoid Tylenol
-abd US-no sig findings except mild rt hydro
# Right Shoulder Pain
- arthritic
- has h/o resolved lytic lesions
- cont pain control / PT OT
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
-SVC Syndrome s/p Radiation
-Xgeva and Keytruda
-Follows with Dr. Sandoval/Gisela - made aware of patient being in hospital
# Chronic Pain with Opioid Dependence
-Related to bone metastasis and cancer related pain
-Continue fentanyl patch, oxycodone and gabapentin as prior to admission
#Paroxysmal Atrial Fibrillation
-Continue Eliquis
-Continue metoprolol for rate control
-Dr sage made aware to see patient as OP
#Chronic HFpEF
-Continue furosemide
-Monitor Daily weights
#SIADH
-na stable
-Continue fluid restriction
#Essential Hypertension
-Continue metoprolol with hold parameters
#Hyperlipidemia
-Continue rosuvastatin
#COPD, no acute exacerbation
-Continue MDI's
-Maintain spo2-88%-92%
# Depression- cont lexapro
DVTp-Eliquis
CODE- DNR
Dispo PT OT rec SNF- and patient refusing- DC home with clsoe f/u
Time spent coordinating care, DC planning, review of DC plan of care with resident, transition of care, review of records, med rec/scripts sent electronically, consults, notes, d/w consultants, nursing, family, and CM� 32 mins >50% of this time was
devoted to counseling and coordination of care
Original Note:
Today's Communication/Plan
-
Keppra 500mg BID as outpatient.
Dr. Sage, Dr. Stinson, Dr. Armas updated
Continue monitoring
Pain management as needed
Neurology follow up as outpatient
PT/OT as outpatient
Assessment / Plan
Assessment / Plan
79 year old male with past medical history of stage IV non-small cell lung cancer, arthritis, chronic pain with opioid dependence, BPH, glaucoma, COPD, and atrial fibrillation presents at the ER after being found unresponsive by his son. The patient
reports sitting on his bed when he suddenly felt lightheaded and having a 'hot flushing' sensation before the episode occurred. Eye rolling and some shaking noted by the son. Similar episode reported on earlier last month.
#Altered mental status
-Glucose- 141 at presentation now 109
-Carbon dioxide: 29
-Creatinine: 0.5
-Bun 14
-Transaminitis resolved (AST 26, ALT 31, ALP 113)
-Hbg low 10
-WBC normal
ECG
SINUS RHYTHM WITH OCCASIONAL PREMATURE VENTRICULAR COMPLEXES
RIGHT BUNDLE BRANCH BLOCK
LEFT ANTERIOR FASCICULAR BLOCK
BIFASCICULAR BLOCK
ABNORMAL ECG
WHEN COMPARED WITH ECG OF 21-Jan-2025 00:31,
NO SIGNIFICANT CHANGE WAS FOUND
HEAD CT: no signs of abnormality
Chest X ray: bony metastasis, opacity, likely lung carcinoma previously noted. Stable moderate elevation of right hemidiphragm
There is loss of definition of the superior cortical margin of the left posterior seventh rib, which is likely from a bony metastatic lesion. There is also focal lucency involving the left inferolateral scapular body, which is likely a bony
metastatic lesion.
IMPRESSION:
Focal parenchymal opacity in the inferior aspect of the right lobe, stable from CT examination of January 15, 2025, and likely treated lung carcinoma.
Stable moderate elevation right hemidiaphragm.
Abdominal ultrasound:
Mild right hydronephrosis.
No other acute abnormality identified in the abdomen by ultrasound. No cholelithiasis or bile duct dilatation.
ECHO (02/23/2025): Normal left ventricular size and function. Normal regional wall motion. Left
ventricular ejection fraction is 55-60% by visual assessment.
Mildly dilated aortic root. No significant change from last ECHO
EEG (02/23/2025):
Diffuse cortical dysfunction without focal abnormality. No seizures were recorded.
-Levetiracetam 500mg PO BID to be continued as outpatient
-Neurology following
-PT/OT following
- Per family's request, Dr. Sage was updated and he currently thinks that consult is not required, but services will be available if needed; sends his best regards. Dr. Stinson and updated as well.
-Per oncology: episodes unlikely related to Keytruda, most likely d/t peripheral vasodilation in low bp setting, suggest follow up with cardiology and avoiding long/hot showers.
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
SVC Syndrome s/p Radiation
-on Xgeva and Keytruda
- as oncologist
Right shoulder pain
-most likely arthritic pain
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
History of Atrial Fibrillation
-Continue Eliquis
-Continue metoprolol
Essential Hypertension
-121/54 today
-continue furosemide
Hyperlipidemia
-Continue rosuvastatin
COPD, not in acute exacerbation
Glaucoma
-Continue Latanoprost 1 drop both eyes
-Continue Brinzolamide/Brimonidine Tartrate 1 drop right eye BID
Anticipated Discharge: Within 24 hours
Subjective/Interval History
-
Date of Service: February 24, 2025
The patient continues to report right shoulder pain. He doesn't report any lightheaded,difficulty breathing, syncope, or the flushing feeling he felt previously prior to unresponsive episode. Patient is planning to go home with [facility].
Objective Data
-
Labs:
Laboratory Results
02/24/25
07:35
WBC 6.9
Hgb 10.0 L
Hct 31.8 L
Plt Count 249
Sodium 132 L
Potassium 4.2
Chloride 99
Carbon Dioxide 29
BUN 14
Creatinine 0.5 L
Glucose 109 H
Calcium 8.5
Total Bilirubin 0.6
AST 26
ALT 31
Alkaline Phosphatase 113
Vital Signs:
Vital Signs
Temp Pulse Resp BP Pulse Ox
98.1 F 64 16 156/88 96
02/24/25 07:42 02/24/25 08:32 02/24/25 07:47 02/24/25 08:32 02/24/25 07:47
I&O
02/23/25 02/24/25 02/25/25
06:59 06:59 06:59
Intake Total 1440 / 1440 840 / 840 960 / 960
Output Total 1550 / 1550 725 / 725
Balance -110 / -110 115 / 115 960 / 960
Review of Systems
-
History Source: Patient
Constitutional: Reports Fatigue
Respiratory: Reports Other (denies cough, trouble breathing, wheezing noted)
Cardiac: Reports Other (Denies chest pain, palpitations)
Abdomen/GI: Reports Other (Denies abdominal pain, diarrhea, bloody stools)
Genitourinary: Reports Other (on external catheter)
Musculoskeletal: Reports Joint Pain (right shoulder pain)
Neuro: Reports Other (Denies headaches, numbness, lightheadedness noted)
Physical Exam
-
General: Conversant, Appears Chronically Ill and Cachectic
HEENT: Normocephalic, Atraumatic and PERRLA
Respiratory: Non Labored Respirations
Cardiac: Regular Rhythm and S1/S2
GI: Soft, Nondistended and Normal Bowel Sounds
Genito-urinary: Other (External catheter)
Musculoskeletal: No Cyanosis and No Edema
Skin: Warm
Neuro: AO x 3
Psych: Calm
[2025-02-24 11:08] VITALS: BP 112/58
--- NOTE | 2025-02-24 12:21 | CM ---
Patient seen at bedside with
PT rec SNF
patient/ request VN - prefers [facility]
Notified [facility] liaison, referral [facility] in [facility]
PLAN: Home with [facility] when stable
--- NOTE | 2025-02-24 12:25 | VNURNOTE ---
Home Health Liaison met with patient and spouse at bedside to discuss [facility] nurse/therapy, visits, schedule and homebound status. Patient was dozing. Spouse is agreeable and understands that visits at home will be 2-3 x per week to assess and
teach medical management. She is familiar with [facility] and is aware that [facility] will contact them for start of care in 1-2 days after discharge from .
[facility] referral completed in [facility].
[2025-02-24 15:08] VITALS: BP 122/51
--- NOTE | 2025-02-24 16:15 | CON.ONC ---
Consultation
-
Date Consultation Requested: 02/24/25
Date Consultation Performed: 02/24/25
Requesting Provider: Dr Destiney Smith
Performing Provider: Dr Melissa Stinson
Reason for Consultation: lung cancer
Impression
Impression
metastatic NSCLC, on Keytruda
unresponsive episode, suspect convulsive syncope
Plan
Plan
Discussed recent events with patient and family. Suspect convulsive syncope after long/hot shower, with peripheral vasodilation, in the setting of already low BP/pulse. Unlikely related to Keytruda.
Rec. f/u with cardiology for further medical mgmt.
Avoid long/hot showers
f/u as scheduled for continue lung cancer treatment
Will sign off. Please call [facility] questions.
Patient History
History of Present Illness
Adolfo is a 79yo M w/ metastatic NSCLC, on Keytruda per Dr. Sandoval, with a positive response to treatment.
He presented to the ER on 02/21/25 after an episode at home -- he had taken a long shower (1-2hr in a steamy shower, per ), then sat on his bed. He felt dizzy and had a flush of warmth, then fell back on the bed. His family tended to him, sat him
up, but noted some eye rolling and a blank stare for about 30 seconds. EMS was called and he was brought to the ER.
He was started on Keppra for possible seizure.
Brain imaging and EEG have been negative.
He's had recent issues w/ low BP and pulse, and his support clerk has been decreasing/holding his BP meds.
Past-Medical/Surgical History
Past Medical History
Past Medical History: Reports Other
Additional Past Medical History:
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
SVC Syndrome
Chronic Pain with Opioid Dependence
Paroxysmal Atrial Fibrillation
Chronic HFpEF
SIADH
Essential Hypertension
Hyperlipidemia
COPD
BPH
Past Surgical History: Reports Other
Additional Past Surgical History:
Appendectomy
Hernia Repair
Right Shoulder Surgery
Left Wrist Carpectomy
Bilateral Cataracts
Social History
Tobacco: Former Smoker
Alcohol: None
Drug: None
Personal:
Family History
Family History: Not pertinent
Patient Medication
�Medication �Instructions �Recorded �Confirmed �Last Taken �Type
brinzolamide 1 %-brimonidine 0.2 % 1 drp RIGHT EYE BID Eye Condition 04/09/23 02/21/25 05/06/24 History
eye drops,suspension (Simbrinza)
qlklnildmlbd-vocemolt-zxtjob tablet 1 tab PO DAILY Supplement 04/09/23 02/21/25 03/17/24 History
travoprost 0.004 % eye drops 1 drp BOTH EYES HS Eye Condition 04/09/23 02/21/25 03/16/24 History
umeclidinium 62.5 mcg-vilanterol 1 inh inhalation R QPM 04/09/23 02/21/25 03/17/24 History
25 mcg/actuation powdr for Lung/Breathing Issues
inhalation (Anoro Ellipta)
apixaban 5 mg tablet (Eliquis) 5 mg PO BID #60 tabs 04/10/23 02/21/25 05/06/24 Rx
polyethylene glycol 3350 17 gram 17 g PO DAILYPRN PRN constipation 05/04/24 02/21/25 03/17/24 Rx
oral powder packet (HealthyLax) #100 ea
bisacodyl 10 mg rectal suppository 10 mg NH DAILYPRN PRN if no bm x 3 05/14/24 02/21/25 Unknown History
(Dulcolax (bisacodyl)) days
oxycodone 5 mg tablet 5 mg PO .Q4-6HPRN PRN severe pain 05/14/24 02/21/25 Unknown History
Keytruda 1 dose IV Q3W Cancer 11/18/24 02/21/25 Unknown History
denosumab 120 mg/1.7 mL (70 mg/mL) 120 mg SC Q6W Cancer 11/18/24 02/21/25 Unknown History
subcutaneous solution (Xgeva)
gabapentin 300 mg capsule 300 mg PO BID Neurological 11/18/24 02/21/25 Unknown History
Condition
levalbuterol tartrate 45 1 puff inhalation DAILYPRN PRN sob 11/18/24 02/21/25 2 Days Ago History
mcg/actuation aerosol inhaler ~11/16/24
magnesium chloride 71.5 mg 143 mg PO DAILY Supplement 11/18/24 02/21/25 Unknown History
(magnesium chloride)
tablet,delayed release (Slow-Mag)
metoprolol succinate 25 mg capsule 12.5 mg PO DAILY Blood Pressure 11/18/24 02/21/25 Unknown History
sprinkle, ext. release 24 hr
psyllium 1 packet PO DAILY Constipation 11/18/24 02/21/25 Unknown History
rosuvastatin 20 mg tablet 20 mg PO .DINNER High Cholesterol 11/18/24 02/21/25 Unknown History
sennosides 8.6 mg-docusate sodium 2 tab-cap PO BID Constipation 11/18/24 02/21/25 Unknown History
50 mg tablet (Senokot-S)
furosemide 20 mg tablet 20 mg PO DAILY #30 tabs 11/24/24 02/21/25 Unknown Rx
Calcium 500mg With D3 25mcg 2 tab PO BID Supplement 01/20/25 02/21/25 Unknown History
fentanyl 12 mcg/hr transdermal 1 patch transdermal Q72H Pain 01/20/25 02/21/25 Unknown History
patch
fentanyl 25 mcg/hr transdermal 1 patch transdermal Q72H Pain 01/20/25 02/21/25 Unknown History
patch
hydrocortisone 1 % lotion (Aquanil 1 applic topical DAILY 01/20/25 02/21/25 Unknown History
HC) Anti-Inflammatory
escitalopram oxalate 5 mg tablet 5 mg PO HS Mental Health/Anxiety 02/21/25 02/21/25 Unknown History
(Lexapro)
sodium phosphates 19 gram-7 118 ml NH DAILY PRN IF NO BM X4 02/21/25 02/21/25 Unknown History
gram/118 mL enema (Fleet Enema) DAYS
Active Medications
Generic Name Dose Route Start Last Admin
Trade Name Freq PRN Reason Stop Dose Admin
Apixaban 5 mg 02/21/25 20:46 02/24/25 08:33
Apixaban (Eliquis) 5 Mg Tablet PO 03/21/25 20:45 5 mg
BID RAFAEL Administration
Brinzolamide/Brimonidine Tartrate 1 drop 02/21/25 20:46 02/24/25 08:34
Brinzolamide 1%/Brimonidine 0.2% (Ophth Susp) 8 Ml Bottle RIGHT EYE 03/21/25 20:45 1 drop
BID RAFAEL Administration
Calcium/Vitamin D 1,000 mg 02/22/25 20:00 02/24/25 08:33
Calcium Carbonate 500 Mg/Vitamin D 5 Mcg (200 Units) Tablet PO 03/22/25 19:59 1,000 mg
BID RAFAEL Administration
Escitalopram Oxalate 5 mg 02/21/25 22:00 02/23/25 21:46
Escitalopram 5 Mg Tablet PO 03/21/25 21:59 5 mg
HS RAFAEL Administration
Fentanyl 1 patch 02/21/25 20:46 02/21/25 21:49
Fentanyl 25 Mcg/Hr Patch TRANSDERM 03/07/25 20:45 1 patch
Q72H RAFAEL Administration
Fentanyl 1 patch 02/21/25 20:46 02/21/25 21:48
Fentanyl 12 Mcg/Hr Patch TRANSDERM 03/07/25 20:45 1 patch
Q72H RAFAEL Administration
Furosemide 20 mg 02/22/25 08:00 02/24/25 08:33
Furosemide 20 Mg Tablet PO 03/22/25 07:59 20 mg
DAILY RAFAEL Administration
Gabapentin 300 mg 02/21/25 20:46 02/24/25 08:33
Gabapentin 300 Mg Capsule PO 03/21/25 20:45 300 mg
BID RAFAEL Administration
Hydrocortisone 1 applic 02/22/25 08:00 02/24/25 08:34
Hydrocortisone 1% (Lotion) 120 Ml Bottle TOPICAL 03/22/25 07:59 1 applic
DAILY RAFAEL Administration
Latanoprost 1 drop 02/21/25 22:00 02/23/25 21:46
Latanoprost 0.005% (Ophthalmic Solution) 2.5 Ml Bottle BOTH EYES 03/21/25 21:59 1 drop
HS RAFAEL Administration
Levetiracetam 500 mg 02/22/25 20:00 02/24/25 08:33
Levetiracetam 500 Mg Regular Release Tablet PO 03/22/25 19:59 500 mg
BID RAFAEL Administration
Magnesium 168 mg 02/22/25 15:30 02/24/25 08:33
Magnesium Lactate 84 Mg Tablet PO 03/22/25 15:29 168 mg
DAILY RAFAEL Administration
Metoprolol Succinate 12.5 mg 02/22/25 08:00 02/24/25 08:32
Metoprolol 12.5 Mg Extended Release Dose (1/2 Of 25 Mg Xl Tablet) PO 03/22/25 07:59 12.5 mg
DAILY RAFAEL Administration
Olodaterol 2 puff 02/22/25 08:00 02/24/25 07:39
Olodaterol (Striverdi Respimat) 2.5 Mcg Inhaler INH 03/22/25 07:59 2 puff
R DAILY RAFAEL Administration
Oxycodone HCl 5 mg 02/21/25 20:46 02/23/25 17:20
Oxycodone 5 Mg Regular Release Tablet PO 03/07/25 20:45 5 mg
Q4HPRN PRN Administration
severe pain
Patch Removal 2 patch 02/21/25 20:46 02/21/25 21:53
Remove Fentanyl Patch REMOVE 03/07/25 20:45 2 patch
Q72H RAFAEL Administration
Polyethylene Glycol 17 grams 02/21/25 20:46 08/04/25 13:30
Polyethylene Glycol Powder 17 Grams Packet PO 03/21/25 20:45 17 grams
DAILYPRN PRN Administration
constipation
Psyllium Hydrophilic Mucilloid 1 packet 02/22/25 08:00 02/24/25 08:34
Psyllium Packet PO 03/22/25 07:59 1 packet
DAILY RAFAEL Administration
Rosuvastatin Calcium 20 mg 02/21/25 20:46 02/23/25 17:23
Rosuvastatin (Crestor) 20 Mg Tablet PO 03/21/25 20:45 20 mg
QPM RAFAEL Administration
Senna/Docusate Sodium 1 tablet 02/21/25 20:46 02/24/25 08:33
Docusate W/Senna (Page-Colace) Tablet PO 03/21/25 20:45 1 tablet
BID RAFAEL Administration
Tiotropium [place] 2 puff 02/22/25 08:00 02/24/25 07:39
Tiotropium (Spiriva Respimat) 2.5 Mcg Inhaler INH 03/22/25 07:59 2 puff
R DAILY RAFAEL Administration
Review of Systems
-
All Other Systems: Not reviewed unless documented
Physical Exam
-
General: Well Developed, Well Nourished, No Apparent Distress, Comfortable and Conversant; Negative Appears in Distress
HEENT: Negative Jaundice
Neurology: Non Focal, No Lateralizing Symptoms and No Word Finding Difficulty
Psych: Calm and Intact Judgement/Insight
Labs
Lab Results
WBC 6.9 10^3/uL (4.8-10.8) 02/24/25 07:35
RBC 3.52 10^6/uL (4.70-6.10) L 02/24/25 07:35
Hgb 10.0 g/dL (13.0-18.0) L 02/24/25 07:35
Hct 31.8 % (39.0-52.0) L 02/24/25 07:35
MCV 90.3 fL (80.0-94.0) 02/24/25 07:35
MCH 28.4 pg (27.0-31.0) 02/24/25 07:35
MCHC 31.4 g/dL (33.0-37.0) L 02/24/25 07:35
RDW 17.8 % (11.5-14.5) H 02/24/25 07:35
Plt Count 249 10^3/uL (130-400) 02/24/25 07:35
MPV 9.3 fL (7.4-10.4) 02/24/25 07:35
Abs Immat Gran (auto) 0.0 10^3/uL (0-0.05) 02/21/25 15:48
Absolute Neuts (auto) 9.8 10^3/uL (1.4-6.5) H 02/21/25 15:48
Absolute Lymphs (auto) 0.2 10^3/uL (1.2-3.4) L 02/21/25 15:48
Absolute Monos (auto) 0.8 10^3/uL (0.1-0.6) H 02/21/25 15:48
Absolute Eos (auto) 0.0 10^3/uL (0-0.7) 02/21/25 15:48
Absolute Basos (auto) 0.0 10^3/uL (0-0.2) 02/21/25 15:48
Immature Gran % 0.4 % (0-0.5) 02/21/25 15:48
Neutrophils % 89.6 % (42.2-75.2) H 02/21/25 15:48
Lymphocytes % 2.1 % (20.5-51.1) L 02/21/25 15:48
Monocytes % 7.6 % (1.7-9.3) 02/21/25 15:48
Eosinophils % 0.1 % (0-6) 02/21/25 15:48
Basophils % 0.2 % (0-2) 02/21/25 15:48
Creatinine 0.5 mg/dL (0.7-1.3) L 02/24/25 07:35
Vital Signs
Vital Signs
Temp Pulse Resp BP Pulse Ox
99.0 F 66 14 122/51 95
02/24/25 15:08 02/24/25 15:08 02/24/25 15:08 02/24/25 15:08 02/24/25 15:08
[2025-02-24] MEDS: CRESTOR 20 MG PO (17:14)
--- NOTE | 2025-02-24 18:39 | W.DCSUMMARY ---
Addendum entered and electronically signed by Manjit Oscar MD 02/24/25 22:59:
Read, reviewed, and agree. See same day progress note for additional details. Stable for DC. Refusing SNF and no further testing to be done. close follow up set up.
Joshua Oscar MD
Original Note:
Documented by User: Destiney Smith MD, Resident 02/24/25 21:07
Discharge Summary
Discharge Data
Date of Admission: 02/21/25
Date of Discharge: 02/24/25
-
Pending Results: No
Hospital Course
Discharging Physician : Destiney Smith
Disposition : Home
Primary care physician : Dr. Manjit Oscar
Principal Discharge diagnosis : Syncope, likely convulsive
Chronic Discharge diagnosis : Lung cancer, Paroxysmal Atrial Fibrillation, Essential Hypertension, Hyperlipidemia, Chronic Pain with Opioid Dependence
Hospital Course : 79 year old male with past medical history of lung cancer, chronic pain with opioid dependence, essential hypertension, and paroxysmal atrial fibrillation presents at the Emergency Room after being found unresponsive by his son.
The patient reports that he was sitting on the edge of his bed when he suddenly felt lightheaded, accompanied by a hot, flushing sensation before the episode occurred. Eye rolling and some shaking noted by his son. Similar episode reported last
month, when he was noted to be leaning on one side with his body rigid. The patient was evaluated at the Emergency Room and was admitted for observation. Laboratories and imaging studies were ordered to further investigate the cause of the syncope.
Although, symptoms leans towards a neurological origin, cardiac pathologies were of concern and needed to be ruled out, thus studies ordered. ECG showed sinus rhythm with occasional premature ventricular complexes, right bundle branch block, left
anterior fascicular block, not a significant change compared to last ECG taken on January 21, 2025. Echocardiogram showed normal left ventricular size and function with left ventricular ejection fraction of 55-60%. Mildly dilated aortic root and mild
valvular dysfunctions also noted. Chest X-Ray finding were stable from last study which indicated focal parenchymal opacity that is likely treated lung carcinoma (see full report below).
As syncope was suspected to primarily be of neurological cause due to the convulsive-like movements, Neurology was consulted. After reviewing the laboratory and imaging studies, including the Brain MRI which showed findings most compatible with mild
to moderate chronic microangiopathic ischemia in the bilateral cerebral hemisphere with no mass effect, midline shift, or extra axial collection observed (Other findings, likely chronic also noted, please see full report below); per expert opinion,
an EEG was ordered and Levetiracetam (Keppra) 500 mg, twice a day started. EEG reports later showed diffuse cortical dysfunction without focal abnormality. No seizures were recorded in the period of the EEG exam. Although cortical dysfunction is not
the same as seizures, it indicates that dysfunction is ongoing, and thus Keppra continued as per Neurology's advice. Throughout the course of hospital stay, no recurrence of unresponsive episode, and associated lightheadedness and flushing feeling
reported by the patient. However, right shoulder pain was noted, likely of arthritic cause. Pain management measure done. Occupational Therapy, and Physical Therapy also sought. Skilled Rehabilitation was advised, but patient opted to go home.
Liver enzymes also noted to be elevated at presentation, thus abdominal ultrasound was ordered which demonstrated no acute abnormality, aside from a mild right hydronephrosis that is likely non-contributory to the patient's current
presentation.Throughout the course of the hospital stay, liver enzyme were trended and levels normalized.
Per family's request, Medical Oncology's opinion also sought regarding possibility of Keytruda being the cause of the episodes. Expert opinion concluded that Keytruda unlikely to have caused the symptoms. Likely, low blood pressure in conjunction
with long, hot showers is causing peripheral vasodilation that is leading to transient changes in mental status. Cardiology follow up recommended. Dr. Armas and Dr. Dempsey updated on the patient's current condition.
Ongoing hospital admission deemed no longer required, thus family was advised. The patient was discharged with continued home medications, in addition to Levetiracetam (Keppra) 500mg by PO BID. Follow up consultation with primary care physician,
neurology, oncology, and cardiology advised.
During this admission, the following problems were addressed:
#Altered mental status, unresponsiveness
-Glucose- 141 at presentation now 109
-Carbon dioxide: 29
-Creatinine: 0.5
-Transaminitis resolved (AST 26, ALT 31, ALP 113)
-WBC trended
Imaging studies (refer below for full report)
ECG
HEAD CT
Chest X ray
Abdominal ultrasound
ECHO
EEG
Plan:
-Levetiracetam (Keppra) 500mg PO BID to be continued as outpatient
-Neurology following
-PT/OT following
-Per family's request, Dr. Dempsey was updated and he currently thinks that consult is not required, but services will be available if needed; sends his best regards. Dr. Stinson and updated as well.
-Per oncology: episodes unlikely related to Keytruda, most likely d/t peripheral vasodilation in low bp setting, suggest follow up with cardiology and avoiding long/hot showers.
Lung Cancer with Bone Metastasis
-continue Xgeva and Keytruda
- as oncologist
Right shoulder pain
-most likely arthritic pain
-Continue fentanyl patch, oxycodone and gabapentin
History of Atrial Fibrillation
-Continue Eliquis
-Continue metoprolol
Essential Hypertension
Chronic HFpEF
-121/54 today
-continue furosemide
Hyperlipidemia
-Continue rosuvastatin
COPD, not in acute exacerbation
maintain spO2 in ideal range
Glaucoma
-Continue Latanoprost 1 drop both eyes
-Continue Brinzolamide/Brimonidine Tartrate 1 drop right eye BID
Important imaging findings :
Brain MRI: FINDINGS:
Moderate age-related parenchymal atrophy. T2/FLAIR hyperintense signal in the white matter of the bilateral cerebral hemispheres, most compatible with mild to moderate chronic microangiopathic ischemia. No mass effect, midline shift, or extra axial
collection. No abnormal signal intensity on diffusion-weighted images. A few punctate foci of chronic microhemorrhage are noted in the bilateral frontal lobes and in the right cerebellar peduncle. Larger chronic focus of hemosiderin deposition in
the left temporal lobe located within the white matter lateral to the left lateral ventricle with an accompanying small nodular focus of enhancement (series 803, image 76), unchanged from the previous examination and considered most suspicious for a
cavernoma. 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 Low signal intensity foci in the posterior medial left cerebellar hemisphere corresponding to dystrophic calcifications on the prior
head CT.
The vascular flow voids at the skull base are unremarkable, as far as visualized.
Near-complete opacification of the right frontal sinus. Partial opacification of the right ethmoid sinus. The mastoid air cells are clear. Bilateral ocular lens implants.
IMPRESSION:
No acute intracranial abnormality. Chronic findings, as detailed above.
Head CT: FINDINGS: There are small calcifications within the posterior medial left cerebellar hemisphere, unchanged from recent CT of the head. This is also unchanged compared to CT of the head from May 15, 2024. Stability suggests that this is
benign dystrophic calcification.
There is no evidence for acute intracranial hemorrhage. There is no midline shift.
Small focus of volume loss and decreased density in the region of the anterior body of the right caudate nucleus, stable, and likely from old infarction.
Mild diffuse atrophy in this 79-year-old.
No abnormal extra-axial collection is identified.
Mild stable leukomalacia.
Complete opacification of the right frontal sinus. Moderate focal opacification of the anterior right ethmoid sinuses. This appears stable from previous CT of the head.
Left frontal sinus appears clear. The left ethmoid sinuses appear clear. The sphenoid sinuses and visualized maxillary sinuses appear clear. The mastoid air cells appear clear.
IMPRESSION:
No evidence of acute intracranial abnormality.
Chest X-Ray: FINDINGS: There is a focal opacity involving the right upper lobe, just superior to the minor fissure, stable from CT examination of January 15, 2025, and likely representing treated lung cancer.
a moderate elevation right hemidiaphragm, stable.
The rest of the lungs appear clear. Cardiac silhouette size is within normal limits with no evidence for pulmonary edema or pleural effusion.
Mild levoconvex scoliosis centered in the lower thoracic spine.
There is loss of definition of the superior cortical margin of the left posterior seventh rib, which is likely from a bony metastatic lesion. There is also focal lucency involving the left inferolateral scapular body, which is likely a bony
metastatic lesion.
IMPRESSION:
Focal parenchymal opacity in the inferior aspect of the right lobe, stable from CT examination of January 15, 2025, and likely treated lung carcinoma.
Stable moderate elevation right hemidiaphragm.
Abdomen Ultrasound:
FINDINGS:
LIVER: The liver measures up to 17.1 cm in length. The hepatic echotexture is homogeneous without focal lesion.
BILE DUCTS: No intrahepatic or extrahepatic biliary dilatation. The common bile duct measures 3 mm in diameter.
GALLBLADDER: No shadowing gallbladder calculus, abnormal gallbladder wall thickening, gallbladder distention, or pericholecystic fluid. The anterior gallbladder wall measures 2 mm in thickness. The sonographic Guajardo's sign was reportedly negative.
RETROPERITONEUM: The imaged portions of the pancreatic head, neck, and body appear normal. The imaged portions of the intra-abdominal inferior vena cava and abdominal aorta appear normal other than calcified aortic atherosclerosis.
SPLEEN: The spleen measures 11.0 cm in length.
KIDNEYS: The right kidney measures 11.9 x 5.0 x 6.0 cm. The left kidney measures 11.6 x 5.0 x 6.2 cm. Mild right hydronephrosis.
IMPRESSION:
Mild right hydronephrosis.
No other acute abnormality identified in the abdomen by ultrasound. No cholelithiasis or bile duct dilatation.
Procedure findings :
EEG:
Mildly abnormal EEG for age due to diffuse bihemispheric slowing
CLINICAL CORRELATION:
This study was suggestive of diffuse cortical dysfunction without focal abnormality. No seizures were recorded.
Clinical correlation is advised.
Discharge Plan
-
Patient Disposition: Home (Routine Discharge)
Discharge Diagnosis/Procedures: Syncope, likely convulsive
Condition: Fair
Diet: Low Cholesterol
Activity: As tolerated
Driving Restrictions: As prior to admission
Bathing Restrictions: OK to Shower
Referrals:
Jorge Dempsey MD [Active, Cardiology]
Rere Sandoval DO [Active, Hematology / Oncology]
Dickson Frazier MD [Active, Neurology] - in one week
Jimenez Fitzpatrick MD [Family Provider, Family Practice] - in less than 1 week
Additional Discharge Medication Instructions: Take Keppra 500mg tablet by mouth, twice a day. Please follow up with outpatient Neurology for additional instructions and refills.
Please follow up with outpatient Oncology and Cardiology as well.
Prescriptions:
New
levetiracetam 500 mg Tablet
500 mg PO BID Qty: 60 0RF
Continued
travoprost 0.004 % drops
1 drp BOTH EYES HS
[id number]-mzxlttug-srgmnj Tablet
1 tab PO DAILY
Simbrinza 1-0.2 % Drops,Suspension
1 drp RIGHT EYE BID
umeclidinium-vilanterol [Anoro Ellipta] 62.5-25 mcg/actuation blister with device
1 inh INHALATION R QPM
Eliquis 5 mg Tablet
5 mg PO BID Qty: 60 5RF
polyethylene glycol 3350 [HealthyLax] 17 gram Powder In Packet
17 g PO DAILYPRN PRN (Reason: constipation) Qty: 100 0RF
bisacodyl [Dulcolax (bisacodyl)] 10 mg Suppository
[address] DAILYPRN PRN (Reason: if no bm x 3 days)
oxycodone 5 mg tablet
5 mg PO .Q4-6HPRN PRN (Reason: severe pain)
Rx Instructions:
NO MORE THAN 4 TAB IN 24 HR
sennosides-docusate sodium [Senokot-S] 8.6-50 mg Tablet
2 tab-cap PO BID
psyllium Packet
1 packet PO DAILY
rosuvastatin 20 mg Tablet
20 mg PO .DINNER
gabapentin 300 mg capsule
300 mg PO BID
Slow-Mag 71.5 mg Tablet,Delayed Release (Dr/Ec)
143 mg PO DAILY
metoprolol succinate 25 mg Capsule,Sprinkle,Er 24hr
12.5 mg PO DAILY
Xgeva 120 mg/1.7 mL (70 mg/mL) Solution
120 mg SC Q6W
Keytruda
1 dose IV Q3W
levalbuterol tartrate 45 mcg/actuation Hfa Aerosol Inhaler
1 puff INHALATION DAILYPRN PRN (Reason: sob)
furosemide 20 mg Tablet
20 mg PO DAILY Qty: 30 0RF
fentanyl 25 mcg/hr Patch 72 Hour
1 patch TRANSDERMAL Q72H
Patient Comments:
with 12 mcg=37mcg
fentanyl 12 mcg/hr Patch 72 Hour
1 patch TRANSDERMAL Q72H
Patient Comments:
with 25mcg = 37mcg
hydrocortisone [Aquanil HC] 1 % lotion
1 applic topical DAILY
Patient Comments:
apply to both shoulders/arms
Calcium 500mg With D3 25mcg
2 tab PO BID
Fleet Enema 19-7 gram/118 mL Enema
[address] DAILY PRN (Reason: IF NO BM X4 DAYS)
escitalopram oxalate [Lexapro] 5 mg Tablet
5 mg PO HS
Discharge Orders:
Discharge Patient (As Directed); Ordered 02/24/25
Ordered By: Destiney Smith
Discharge Date and Time
Discharge Date/Time: 02/24/25 20:40
Print Language: [place]

Documented by User: Manjit Oscar MD 02/24/25 22:58
Discharge Summary
Discharge Data
Date of Admission: 02/21/25
Date of Discharge: 02/24/25
Discharge Plan
-
Patient Disposition: Home (Routine Discharge)
Discharge Diagnosis/Procedures: Syncope, likely convulsive
Condition: Fair
Diet: Low Cholesterol
Activity: As tolerated
Driving Restrictions: As prior to admission
Bathing Restrictions: OK to Shower
Referrals:
Jorge Dempsey MD [Active, Cardiology]
Rere Sandoval DO [Active, Hematology / Oncology]
Dickson Frazier MD [Active, Neurology] - in one week
Jimenez Fitzpatrick MD [Family Provider, Family Practice] - in less than 1 week
Additional Discharge Medication Instructions: Take Keppra 500mg tablet by mouth, twice a day. Please follow up with outpatient Neurology for additional instructions and refills.
Please follow up with outpatient Oncology and Cardiology as well.
Prescriptions:
New
levetiracetam 500 mg Tablet
500 mg PO BID Qty: 60 0RF
Continued
travoprost 0.004 % drops
1 drp BOTH EYES HS
wfolzqsdrvbo-ikdtunix-jxfmxh Tablet
1 tab PO DAILY
Simbrinza 1-0.2 % Drops,Suspension
1 drp RIGHT EYE BID
umeclidinium-vilanterol [Anoro Ellipta] 62.5-25 mcg/actuation blister with device
1 inh INHALATION R QPM
Eliquis 5 mg Tablet
5 mg PO BID Qty: 60 5RF
polyethylene glycol 3350 [HealthyLax] 17 gram Powder In Packet
17 g PO DAILYPRN PRN (Reason: constipation) Qty: 100 0RF
bisacodyl [Dulcolax (bisacodyl)] 10 mg Suppository
[address] DAILYPRN PRN (Reason: if no bm x 3 days)
oxycodone 5 mg tablet
5 mg PO .Q4-6HPRN PRN (Reason: severe pain)
Rx Instructions:
NO MORE THAN 4 TAB IN 24 HR
sennosides-docusate sodium [Senokot-S] 8.6-50 mg Tablet
2 tab-cap PO BID
psyllium Packet
1 packet PO DAILY
rosuvastatin 20 mg Tablet
20 mg PO .DINNER
gabapentin 300 mg capsule
300 mg PO BID
Slow-Mag 71.5 mg Tablet,Delayed Release (Dr/Ec)
143 mg PO DAILY
metoprolol succinate 25 mg Capsule,Sprinkle,Er 24hr
12.5 mg PO DAILY
Xgeva 120 mg/1.7 mL (70 mg/mL) Solution
120 mg SC Q6W
Keytruda
1 dose IV Q3W
levalbuterol tartrate 45 mcg/actuation Hfa Aerosol Inhaler
1 puff INHALATION DAILYPRN PRN (Reason: sob)
furosemide 20 mg Tablet
20 mg PO DAILY Qty: 30 0RF
fentanyl 25 mcg/hr Patch 72 Hour
1 patch TRANSDERMAL Q72H
Patient Comments:
with 12 mcg=37mcg
fentanyl 12 mcg/hr Patch 72 Hour
1 patch TRANSDERMAL Q72H
Patient Comments:
with 25mcg = 37mcg
hydrocortisone [Aquanil HC] 1 % lotion
1 applic topical DAILY
Patient Comments:
apply to both shoulders/arms
Calcium 500mg With D3 25mcg
2 tab PO BID
Fleet Enema 19-7 gram/118 mL Enema
[address] DAILY PRN (Reason: IF NO BM X4 DAYS)
escitalopram oxalate [Lexapro] 5 mg Tablet
5 mg PO HS
Discharge Orders:
Discharge Patient (As Directed); Ordered 02/24/25
Ordered By: Destiney Smith
Discharge Date and Time
Discharge Date/Time: 02/24/25 20:40
Print Language: [place]
== END 2025-02-24 20:40 | disposition home health service (06) ==
LOC: 3 WEST ACU 19:03
PROVIDERS: Physician Assistant Medical; ADMITTING PHYSICIAN Internal Medicine; ATTENDING PHYSICIAN Family Medicine; CONSULT PHYSICIAN Internal Medicine Hematology & Oncology; CONSULT PHYSICIAN Psychiatry & Neurology Clinical Neurophysiology; EMERGENCY PHYSICIAN Emergency Medicine; FAMILY PHYSICIAN Family Medicine
DX: R55 Syncope and collapse (principal); R56.9 Unspecified convulsions; R53.1 Weakness; R53.83 Other fatigue; E22.2 Syndrome of inappropriate secretion of antidiuretic hormone; G89.3 Neoplasm related pain (acute) (chronic); I48.0 Paroxysmal atrial fibrillation; I11.0 Hypertensive heart disease with heart failure; E78.5 Hyperlipidemia, unspecified; C34.90 Malignant neoplasm of unspecified part of unspecified bronchus or lung; F17.200 Nicotine dependence, unspecified, uncomplicated; R41.82 Altered mental status, unspecified; C79.51 Secondary malignant neoplasm of bone; I87.1 Compression of vein; F11.20 Opioid dependence, uncomplicated; I50.32 Chronic diastolic (congestive) heart failure; N13.30 Unspecified hydronephrosis; M41.9 Scoliosis, unspecified; I45.2 Bifascicular block; R74.01 Elevation of levels of liver transaminase levels; R23.2 Flushing; M25.512 Pain in left shoulder; H40.9 Unspecified glaucoma; M19.011 Primary osteoarthritis, right shoulder; F32.A Depression, unspecified; W06.XXXA Fall from bed, initial encounter; Y93.89 Activity, other specified; Y92.003 Bedroom of unspecified non-institutional (private) residence as the place of occurrence of the external cause; J44.9 Chronic obstructive pulmonary disease, unspecified; N40.0 Benign prostatic hyperplasia without lower urinary tract symptoms; Z66 Do not resuscitate; Z79.01 Long term (current) use of anticoagulants; Z79.899 Other long term (current) drug therapy; Z79.51 Long term (current) use of inhaled steroids; Z92.3 Personal history of irradiation; Z86.73 Personal history of transient ischemic attack (TIA), and cerebral infarction without residual deficits; Z90.49 Acquired absence of other specified parts of digestive tract
CPT/HCPCS: 70450; 71046; 76700; 80048; 80053; 83735; 85025; 85027; 93005; 93308; 93321; 93325; 94640; 94660; 95816; 96360; 96361; 97162; 97166; 99285; G0378

== ENCOUNTER 2025-03-04 08:48 | Inpatient (IN) | payer MEDICARE, OTHER, SELFPAY ==
[2025-02-28 21:03] VITALS: BP 118/54
--- NOTE | 2025-02-28 23:08 | ED.GENMED ---
History of Present Illness
General
Chief Complaint: Medication Reaction
Source: patient
Exam Limitations: none
Time Seen by Provider: 02/28/25 21:39
Nursing documentation reviewed up to this point in time: agreed with
History of Present Illness
History of Present Illness:
Patient discharged from the hospital 4 days ago, after being admitted for syncope evaluation, started on Keppra prior to discharge, presents to ED secondary to continual generalized weakness, along with lightheadedness and decreased appetite,
resulting in multiple episodes of near syncope at home. This afternoon, patient's family noted slurred speech, which now appears to have resolved. Patient's family spoke with primary care physician who is concerned that patient may be having side
effect from Keppra and advised patient come to ED for evaluation. Per family, since being discharged home, patient has been inactive with decreased oral intake. On multiple occasions, while walking short distance, patient has had multiple near
syncopal episodes due to extreme lightheadedness. Denies trauma. Denies preceding chest palpitations or chest pain. In addition, at nighttime, on BiPAP, patient has had increased episodes of apnea noted on the monitor.
Past History
Past History
ED Past Medical History: HTN and Other (Diverticulitis)
ED Past Surgical History: Appendectomy, Orthopedic (Wrist surgery) and Tonsilectomy
Social History
Tobacco: Smoker
Alcohol: Occasional
Drug: None
Personal:
Living: with family
Employment: Employed
Review of Systems
Review of Systems
Allergies reviewed?: Yes
All Other Systems: ROS reviewed and negative except as documented in HPI and ROS
Constitutional: Reports no symptoms; Denies fever
Respiratory: Reports no symptoms
Cardiac: Reports other (Near syncope)
ABD/GI: Reports no symptoms; Denies vomiting or diarrhea
Musculoskeletal: Reports no symptoms
Skin: Reports no symptoms
Neurological: Reports dizzy, headache and weakness
Phy Exam
Physical Exam
Physical Exam:
Physical Exam
General: mild distress, not acutely ill. afebrile. weak appearing
Head: nc/at. eomi
Neck: supple. no meningeal signs.
Heart: s1/s2 regular rate and rhythm
Lungs: no acute respiratory distress. clear bilaterally
Abdomen: normal bowel sounds. not tender.
Neuro: alert and oriented x 3. no focal neurological deficits. normal speech
Skin: no rash
Psychiatric: well kept. interactive and cooperative
Extremities: no edema. no calf tenderness.
Course
Orders/Labs/Results
Orders:
Orders
02/28/25 23:07
0.9% Sodium Chloride 500 ml [Nss] 500 ml IV BOLUS
02/28/25 23:11
Electrocardiogram (*1) Urgent
Reason for Study: Fatigue / Weakness
EKG- Treatment ONCE
02/28/25 23:23
Complete Blood Count/No Diff Urgent
Comprehensive Metabolic Panel Urgent
Keppra (Levetiracetam) [S] Urgent
Magnesium Urgent
02/28/25 23:25
Urinalysis Reflex To Culture Urgent
Date Specimen was Collected: 02/28/25
Time Specimen was Collected: 23:23
Urine Microscopic Reflex Cult Urgent
03/01/25 00:45
FentaNYL 12 MCG/HR PATCH [Duragesic 12 Mcg/Hr Patch] 1 patch TRANSDERM NOW STA
FentaNYL 25 MCG/HR PATCH [Duragesic 25 Mcg/Hr Patch] 1 patch TRANSDERM NOW STA
Oxycodone [Roxicodone] 5 mg PO NOW STA
REMOVE fentaNYL PATCH [Remove Duragesic Patch] 2 patch REMOVE Q72H
Fentanyl Patch Confirmation BID@[id number],1900
03/01/25 00:46
Admit/Transfer Patient As Directed
Co-Sign Provider:
Level of Care: Observation services
Assign to:: Telemetry
Physician / Group: Pieter
Diagnosis: Weakness, Malaise
Reason for Telemetry: Syncope
Date to Stop Telemetry: 03/03/25
Time to Stop Telemetry: 11:00
PRN Pain Medication Management As Directed
May give lesser potent ordered pain med per pt: Yes
preference::
Protocol:: Medication orders for pain may be administered in a
manner that supports deferring to patient preference
when the pt is:
- Requesting an ordered lesser potent pain medication.
Least to most potent pain medications are defined
as: acetaminophen < NSAID < tramadol < opioids
(morphine, oxycodone, hydromorphone).
- Requesting a lesser dose of the same medication IF
ORDERED.
- Requesting a less intrusive route of administration
if both routes are prescribed by the provider (PO <
IV).
03/01/25 00:48
Code Status As Directed
Resuscitation Status: Do not resuscitate
Reached after discussion with pt or family/Healthcare POA: Yes
03/01/25 00:49
DNR Bracelet Application ONCE
03/01/25 01:00
Flush (0.9% Sodium Chloride) [Flush (Nss)] See Dose Instructions IV PER PROTOCOL
03/03/25 11:00
DC Protocol for Telemetry ONCE
Abnormal Lab Results
02/28/25 02/28/25
23:23 23:25
RBC 3.41 L 10^6/uL
(4.70-6.10)
Hgb 9.9 L g/dL
(13.0-18.0)
Hct 30.3 L %
(39.0-52.0)
MCHC 32.7 L g/dL
(33.0-37.0)
RDW 17.5 H %
(11.5-14.5)
Carbon Dioxide 31 H mmol/L
(22-30)
BUN 24 H mg/dl
(9-20)
Creatinine 0.5 L mg/dL
(0.7-1.3)
Glucose 109 H mg/dl
(70-99)
Total Protein 5.7 L g/dl
(6.3-8.2)
Albumin 3.2 L g/dl
(3.5-5.0)
Urine Albumin (Reflex) 1+ A
(Neg - Trace)
02/28/25 23:23
02/28/25 23:23
Vital Signs
Initial and Last Documented VS:
Initial Vital Signs
Temp Pulse Resp BP Pulse Ox
98.2 F 76 20 118/54 94
02/28/25 21:03 02/28/25 21:03 02/28/25 21:03 02/28/25 21:03 02/28/25 21:03
Last Documented Vital Signs
Temp Pulse Resp BP Pulse Ox
98.2 F 81 12 119/61 93
02/28/25 21:03 03/01/25 01:30 03/01/25 01:30 03/01/25 01:00 03/01/25 01:30
MDM/Problems Addressed
MDM/Problems Addressed:
History and exam concerning for potential medication effect from Keppra versus deconditioning, causing near syncopal episodes at home. As such, patient will be admitted for further evaluation and treatment.
*Pulse Oximetry
SaO2: 94
Oxygen Mode of Delivery: Room air
Patient hypoxic: no
*EKG
Interpreted by ED Provider?: Yes
EKG Intrepretation Date: 02/28/25
Heart Rate: 78
Rate: normal
Rhythm: sinus
[place]: normal axis
QRS Pattern: right bundle branch block
Ischemia: T-wave inversion
*Critical Care Note
Total Time (30-74mins, 75-104mins- exclusive of procedures): Not Applicable
ED Attending Note
-
Portions of this chart may have been created with voice recognition software.� Occasional wrong word or��sound alike� substitutions may have occurred due to the inherent limitations of voice recognition software.
Discharge Plan
Departure
Patient Disposition: Admit
Date of Disposition: 02/28/25
Time of Disposition: 23:44
Admit to: Med/Surg
Presentation/result/management discussed w/ accepting MD/DO: Hospitalist
Discharge Problem:
Weakness, Dizziness, Near syncope
Interventions
Interventions:
*Risk Screen - Suicide Last Done: 02/28/25 21:03
*Neglect/Abuse Screening Last Done: 02/28/25 21:03
ED- Pulmonary Assessment Last Done: 02/28/25 21:30
ED-Skin Assessment Last Done: 02/28/25 21:30
[2025-02-28] MEDS: NSS 500 IV (23:28)
[2025-02-28 23:38] LABS: Hematocrit 30.3 % (39.0-52.0); Hemoglobin 9.9 g/dL (13.0-18.0); Mean Corp Hgb Conc. 32.7 g/dL (33.0-37.0); Mean Corpuscular Volume 88.9 fL (80.0-94.0); Platelet Count 218 10^3/uL (130-400); Red Cell Dist. Width 17.5 % (11.5-14.5)
[2025-02-28 23:43] VITALS: BP 126/60
[2025-02-28 23:50] LABS: Urine Character Clear (Clear)
[2025-03-01] VITALS (11 sets, daily range): BP systolic 111–128; BP diastolic 51–67; PULSE 2–83; BMI 20.3
[2025-03-01] LABS: Urine Squamous Cell 0-2 /LPF (Few)
[2025-03-01 00:01] LABS: Urine Red Blood Cell 0-2 /HPF (0-2); Urine White Cell 0-2 /HPF (0-5)
[2025-03-01 00:01] LABS: ALT (SGPT) 22 U/L (0-50); AST (SGOT) 25 U/L (17-59); Albumin 3.2 g/dl (3.5-5.0); Alkaline Phosphatase 102 U/L (38-126); Blood Urea Nitrogen 24 mg/dl (9-20); Calcium 8.4 mg/dl (8.4-10.2); Carbon Dioxide 31 mmol/L (22-30); Chloride 99 mmol/L (98-107); Glucose 109 mg/dl (70-99); Magnesium 2.0 mg/dl (1.6-2.3); Potassium 4.5 mmol/L (3.5-5.1); Sodium 135 mmol/L (135-145); Total Protein 5.7 g/dl (6.3-8.2); eGFR > 60.00
--- NOTE | 2025-03-01 00:51 | HPS.HSE ---
Family Physician
-
Family Physician: Jimenez Fitzpatrick
Chief Complaint
-
Weakness, malaise
History of Present Illness
Patient is a 79y M with PMH significant for NSCLC on Keytruda / Xgeva, CHF, A-Fib and recent admission for syncope who presents to ED complaining of generalized weakness, fatigue, anorexia, confusion and malaise. History obtained from patient
and family at the bedside. Patient was admitted 02/21 - 02/24 following syncopal event at home with ? seizure-like characteristics. He had had a similar episode one month prior - also with described period of rigidity /shaking. Patient was evaluated
and started on Keppra 500mg BID for possible seizure activity.
Since return home, family notes that patient has been weak, less active with poor appetite, lightheadedness and 'near syncope', intermittent confusion and general malaise. All are new symptoms that were not present prior to his recent
hospitalization.
Medical History
Past Medical History
Past Medical History: Reports Other
Additional Past Medical History:
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
SVC Syndrome
Chronic Pain with Opioid Dependence
Paroxysmal Atrial Fibrillation
Chronic HFpEF
SIADH
Essential Hypertension
Hyperlipidemia
COPD
BPH
Past Surgical History: Reports Other
Additional Past Surgical History:
Appendectomy
Hernia Repair
Right Shoulder Surgery
Left Wrist Carpectomy
Bilateral Cataracts
Social History
Tobacco: Former Smoker
Alcohol: None
Drug: None
Personal:
Family History
Family History: Not pertinent
Allergies / Home Medications
Allergies reflects when Allergies were last updated in [facility].
Home Medications with original date entered in [facility]
Allergy/Medication List:
Allergies
Allergy/AdvReac Type Severity Reaction Status Date / Time
Hayfever Allergy Sneezing, Uncoded 02/21/25 15:32
watery/itchy
eyes,
stuffy nose
Home Medications
brinzolamide 1 %-brimonidine 0.2 % eye drops,suspension (Simbrinza) 1 drp RIGHT EYE BID Eye Condition 04/09/23
lvxgvqlzbogl-mcdrumna-vxcglu tablet 1 tab PO DAILY Supplement 04/09/23
travoprost 0.004 % eye drops 1 drp BOTH EYES HS Eye Condition 04/09/23
umeclidinium 62.5 mcg-vilanterol 25 mcg/actuation powdr for inhalation (Anoro Ellipta) 1 inh inhalation R QPM Lung/Breathing Issues 04/09/23
apixaban 5 mg tablet (Eliquis) 5 mg PO BID #60 tabs 04/10/23
polyethylene glycol 3350 17 gram oral powder packet (HealthyLax) 17 g PO DAILYPRN PRN constipation #100 ea 05/04/24
bisacodyl 10 mg rectal suppository (Dulcolax (bisacodyl)) 10 mg [place] DAILYPRN PRN if no bm x 3 days 05/14/24
oxycodone 5 mg tablet 5 mg PO .Q4-6HPRN PRN severe pain 05/14/24
Keytruda 1 dose IV Q3W Cancer 11/18/24
denosumab 120 mg/1.7 mL (70 mg/mL) subcutaneous solution (Xgeva) 120 mg SC Q6W Cancer 11/18/24
gabapentin 300 mg capsule 300 mg PO BID Neurological Condition 11/18/24
levalbuterol tartrate 45 mcg/actuation aerosol inhaler 1 puff inhalation DAILYPRN PRN sob 11/18/24
magnesium chloride 71.5 mg (magnesium chloride) tablet,delayed release (Slow-Mag) 143 mg PO DAILY Supplement 11/18/24
metoprolol succinate 25 mg capsule sprinkle, ext. release 24 hr 12.5 mg PO DAILY Blood Pressure 11/18/24
psyllium 1 packet PO DAILY Constipation 11/18/24
rosuvastatin 20 mg tablet 20 mg PO .DINNER High Cholesterol 11/18/24
sennosides 8.6 mg-docusate sodium 50 mg tablet (Senokot-S) 2 tab-cap PO BID Constipation 11/18/24
furosemide 20 mg tablet 20 mg PO DAILY #30 tabs 11/24/24
Calcium 500mg With D3 25mcg 2 tab PO BID Supplement 01/20/25
fentanyl 12 mcg/hr transdermal patch 1 patch transdermal Q72H Pain 01/20/25
fentanyl 25 mcg/hr transdermal patch 1 patch transdermal Q72H Pain 01/20/25
hydrocortisone 1 % lotion (Aquanil HC) 1 applic topical DAILY Anti-Inflammatory 01/20/25
escitalopram oxalate 5 mg tablet (Lexapro) 5 mg PO HS Mental Health/Anxiety 02/21/25
sodium phosphates 19 gram-7 gram/118 mL enema (Fleet Enema) 118 ml [place] DAILY PRN IF NO BM X4 DAYS 02/21/25
levetiracetam 500 mg tablet 500 mg PO BID #60 tabs 02/24/25
Review of Systems
-
History Source: Patient and Family
A 12 point ROS was completed and negative except as noted: Yes
Constitutional: Reports Weight Loss (130 lbs baseline - now 124.) and Fatigue; Denies Fever or Chills
Respiratory: Denies Cough or Trouble Breathing
Cardiac: Denies Chest Pain or Palpitations
Abdomen/GI: Reports Anorexia; Denies Abdominal Pain, Nausea, Vomiting or Diarrhea
: Denies Dysuria or Frequency
Musculoskeletal: Reports Joint Pain (R shoulder pain - chronic.) and Edema
Neurological: Reports Dizzy, Headache and Weakness; Denies Numbness
Psych: Reports Depression and Anxiety
Physical Exam
Vital Signs
Vital Signs
Temp Pulse Resp BP Pulse Ox
98.2 F 76 21 122/60 93
02/28/25 21:03 03/01/25 00:15 03/01/25 00:15 03/01/25 00:00 03/01/25 00:15
Physical Exam
General: Other (79y M with flat affect in no acute distress.)
HEENT: Moist mucous membranes and PERRLA
Respiratory: Other (Inspiratory wheeze throughout. No rales / rhonchi.)
Cardiac: S1/S2 and Regular Rhythm; No Murmur
GI: Soft, Non Tender, Non Distended and Normal Bowel Sounds
Musculoskeletal: No Clubbing, No Cyanosis and Other (1+ pitting edema b/l LEs.)
Neuro: AO x 3 and Nonfocal/grossly intact
Laboratory Results
-
02/28/25 23:23
02/28/25 23:23
Laboratory Results
Total Bilirubin 0.6 mg/dl (0.2-1.3) 02/28/25 23:23
AST 25 U/L (17-59) 02/28/25 23:23
ALT 22 U/L (0-50) 02/28/25 23:23
Alkaline Phosphatase 102 U/L (38-126) 02/28/25 23:23
Impression/Plan
-
A/P: Patient is a 79y M with PMH significant for NSCLC, A-Fib and CHF who presents to ED for evaluation of generalized weakness, confusion and malaise.
Generalized Malaise
- Observe overnight for further evaluation and treatment.
- Symptoms are new since recent hospitalization according to family.
- Med effects from newly added Keppra seems very likely.
- Will hold Keppra for now (see below).
- Follow for gradual clinical improvement.
- PT / OT evaluations.
Unresponsive Episode, possibly seizure vs syncope
- Very likely convulsive syncope based on review of prior stay and discussion with patient / family.
- Son notes that most recent episode occurred following 2 hours spent in a hot shower.
- Patient also with recent issues with opioid-induced constipation.
- BP / pulse at home has been borderline low even at baseline.
- Hold Keppra as noted above.
- PT / OT evaluations.
- Would also hold Toprol and Lasix acutely (see below).
- Follow for any new / recurrent syncopal or convulsive episodes.
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
SVC Syndrome s/p Radiation
- Patient receiving Xgeva and Keytruda
- Follows with Dr. Sandoval
Chronic Pain with Opioid Dependence
- Related to bone metastasis and cancer related pain
- Continue fentanyl patch, oxycodone and gabapentin as prior to admission
Paroxysmal Atrial Fibrillation
- Family states that Toprol is given at home maybe [id number] (after following holding parameters)
- Given issues with syncope / bradycardia / hypotension - will hold this acutely and follow BP / pulse during hospital stay.
- Continue Eliquis
Chronic HFpEF
- Weight is decreased from baseline according to family.
- Hold Lasix acutely.
- Follow orthostatic BPs.
SIADH
- Sodium level stable
- Continue fluid restriction
Essential Hypertension
- BP low recently. Hold Toprol as noted above and follow for changes.
COPD without Acute Exacerbation
- Stable. Continue umeclidinium-vilanterol
TASIA
- Family notes significant increase in apnea / hypopnea since return home.
- Hold Keppra as noted above.
- Continue nightly PAP therapy.
- Follow for changes in AHI - follow-up with Pulm as an outpatient.
DVT Prophylaxis: On Eliquis
Code Status: DNR
[2025-03-01] MEDS: REMOVE DURAGESIC PATCH 2 PATCH REMOVE (01:04)
[2025-03-01] MEDS: DURAGESIC 12 MCG/HR PATCH 1 PATCH TRANSDERM (01:05)
[2025-03-01] MEDS: ROXICODONE 5 MG PO ×3 (01:13→15:03)
[2025-03-01] MEDS: DURAGESIC 25 MCG/HR PATCH 1 PATCH TRANSDERM (01:14)
--- NOTE | 2025-03-01 01:18 | EDRN ---
pt came into the ED w/ 2 fentanyl patches present - 12mcg fentanyl patch & 25mcg fentanyl patch. both patches removed and wasted w/ Julia Greenberg RN along with this RN prior to placement of new fentanyl patches.
--- NOTE | 2025-03-01 02:30 | PTCARENOTE ---
Pt arrived to room 418-02. Pt transferred from stretcher to bed. Pt AAOx3, VSS. Pt oriented to room, call torres placed within reach. Bed alarm in place.
[2025-03-01] MEDS: NEURONTIN 300 MG PO ×3 (03:23→21:04)
[2025-03-01] MEDS: LEXAPRO 5 MG PO ×2 (03:23→21:04)
[2025-03-01 06:04] LABS: Hematocrit 29.9 % (39.0-52.0); Hemoglobin 9.5 g/dL (13.0-18.0); Mean Corp Hgb Conc. 31.8 g/dL (33.0-37.0); Mean Corpuscular Volume 89.5 fL (80.0-94.0); Platelet Count 228 10^3/uL (130-400); Red Cell Dist. Width 17.7 % (11.5-14.5)
[2025-03-01 06:36] LABS: Blood Urea Nitrogen 21 mg/dl (9-20); Calcium 8.1 mg/dl (8.4-10.2); Carbon Dioxide 30 mmol/L (22-30); Chloride 101 mmol/L (98-107); Estimated Creatinine Clearance 82 ml/min; Glucose 101 mg/dl (70-99); Potassium 4.0 mmol/L (3.5-5.1); Sodium 134 mmol/L (135-145); eGFR > 60.00
--- NOTE | 2025-03-01 08:30 | W.PN.HOSP.TC ---
Today's Communication/Plan
-
See A/P
Assessment / Plan
Assessment / Plan
Assessment/plan
#Generalized weakness, fatigue, anorexia, confusion, malaise
-Likely multifactorial in the setting of medication effects VS underlying malignancy VS deconditioning
-Monitor mental status closely
-Holding prophylactic Keppra given concern for medication side effect
-PT/OT, was recommended SNF at the last admission, but patient's family declined.
-Will probably need PT this admission to regain functional strength
#Episodic unresponsiveness possible syncope versus seizure
-History of seizure-like episodes on levetiracetam, level pending
-Recent episode occurred 2 hours after prolonged hot shower, possibly heat induced syncope or seizure trigger
-Check orthostatics
-EEG 02/23/2025.�The study was suggestive of diffuse cortical dysfunction with no focal abnormality. No symptoms were recorded
-Holding prophylactic Keppra given concern for medication side effect
-Echocardiogram 02/23-normal left ventricular size and function. Normal regional wall motion. Left ventricular ejection fraction 55-60%
-Holding Toprol, Lasix given soft BPs
-PT/OT
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
-SVC Syndrome s/p Radiation
-Patient receiving Xgeva and Keytruda
-Follows with Dr. Sandoval
#Right shoulder pain
-Continue pain control
-PT/OT
-History of resolved lytic lesions
#Chronic Pain with Opioid Dependence
-Related to bone metastasis and cancer related pain
-Continue fentanyl patch, oxycodone and gabapentin as prior to admission
#Paroxysmal Atrial Fibrillation
-Family states that Toprol is given at home maybe [id number] (after following holding parameters)
-Given issues with syncope / bradycardia / hypotension - will hold this acutely and follow BP / pulse during hospital stay.
-Continue Eliquis
#Chronic HFpEF
-Weight is decreased from baseline according to family.
-Hold Lasix acutely.
-Follow orthostatic BPs.
#SIADH
-Sodium level stable
-Continue fluid restriction
#Essential Hypertension
-BP low recently. Hold Toprol as noted above and follow for changes.
#COPD without Acute Exacerbation
-Stable. Continue umeclidinium-vilanterol
#TASIA
-Family notes significant increase in apnea / hypopnea since return home.
-Hold Keppra as noted above.
-Continue nightly PAP therapy.
-follow-up with Pulm as an outpatient.
DVT Prophylaxis: On Eliquis
Code Status: DNR
Anticipated Discharge: > 48 hours
Subjective/Interval History
-
Patient seen and examined at bedside. Still complaining of fatigue, generalized weakness.
Objective Data
-
Labs:
Laboratory Results
02/28/25 03/01/25
23:23 05:28
WBC 5.9 7.4
Hgb 9.9 L 9.5 L
Hct 30.3 L 29.9 L
Plt Count 218 228
Sodium 135 134 L
Potassium 4.5 4.0
Chloride 99 101
Carbon Dioxide 31 H 30
BUN 24 H 21 H
Creatinine 0.5 L 0.5 L
Glucose 109 H 101 H
Calcium 8.4 8.1 L
Total Bilirubin 0.6
AST 25
ALT 22
Alkaline Phosphatase 102
Vital Signs:
Vital Signs
Temp Pulse Resp BP Pulse Ox
97.5 F 75 16 120/67 92
03/01/25 04:03 03/01/25 04:03 03/01/25 04:03 03/01/25 04:03 03/01/25 04:03
Review of Systems
-
All other systems: Reviewed and negative (Except as documented)
Physical Exam
-
General: Conversant, Appears Chronically Ill and Cachectic
HEENT: Normocephalic, Atraumatic and PERRLA
Respiratory: Non Labored Respirations
Cardiac: Regular Rhythm and S1/S2
GI: Soft, Nondistended and Normal Bowel Sounds
Musculoskeletal: No Edema and Other (Right shoulder pain, limited mobility due to pain)
Skin: Warm
Neuro: Awake
Psych: Calm
[2025-03-01] MEDS: STRIVERDI RESPIMAT 2 PUFF INH (08:43)
[2025-03-01] MEDS: SENOKOT-S 2 TABLET PO ×2 (08:43→21:04)
[2025-03-01] MEDS: SPIRIVA RESPIMAT 2.5 MCG 2 PUFF INH (08:43)
[2025-03-01] MEDS: MIRALAX 17 GRAMS PO (08:44)
[2025-03-01] MEDS: OSCAL 500 + D 500 MG PO ×2 (08:44→21:04)
[2025-03-01] MEDS: ELIQUIS 5 MG PO ×2 (08:44→21:04)
[2025-03-01] MEDS: SIMBRINZA 1%-0.2% OPHTH SUSP 1 DROP RIGHT EYE ×2 (08:44→21:10)
--- NOTE | 2025-03-01 09:54 | PTOTSP ---
ST Screening
Chart reviewed. Pt admitted from home for generalized weakness, lightheadedness, reduced appetite, multiple episodes of near syncope, slurred speech that has since resolved, reduced activity, increased apnea on BiPAP monitor at night, confusion,
fatigue, and malaise. Of note, pt was recently admitted to the hospital for similar symptoms after which he was discharged on keppra. Pt's medical hx significant for stage IV NSCLC with mets to the bone, afib, COPD, CHF, TASIA, HTN, diverticulitis,
thyroid nodule, adrenal nodule, and dysphagia. Pt was admitted under the diagnoses of generalized malaise, unresponsive episode - seizure vs syncope, and chronic pain with opioid dependence. Pt is afebrile and on room air. No imaging has been
completed. Pt passed his dysphagia swallowing screening. Pt's medical hx reveals he had a video fluoroscopic swallow evaluation on 05/08/2024 which revealed a oral phase that was WFL and a pharyngeal phase that was mildly impaired characterized by
moderate-severe pharyngeal residue that was sufficiently cleared with a liquid wash - no penetration or aspiration were observed for any consistencies. Esophageal phase was unremarkable. Pt was recommended for a regular solids diet with thin liquids
with the recommendation of alternating solids and liquids. No skilled TIE CARRIER services were recommended.
Given the information listed above, no skilled acute care TIE CARRIER services are deemed warranted at this time. If pt is reporting difficulty swallowing, pt is recommended to pursue an OP f/u TIE CARRIER dysphagia re-evaluation at his convenience.
[2025-03-01] MEDS: CRESTOR 20 MG PO (17:11)
[2025-03-01] MEDS: XALATAN OPHTHALMIC SOLUTION 1 DROP BOTH EYES (21:10)
[2025-03-01] MEDS: TYLENOL 650 MG PO (21:48)
[2025-03-02] VITALS (11 sets, daily range): BP systolic 106–132; BP diastolic 51–74; PULSE 2–88; O2SAT 98; BMI 20.1
[2025-03-02] MEDS: ROXICODONE 5 MG PO ×4 (05:35→21:16)
[2025-03-02] MEDS: STRIVERDI RESPIMAT 2 PUFF INH (08:12)
[2025-03-02] MEDS: SPIRIVA RESPIMAT 2.5 MCG 2 PUFF INH (08:13)
[2025-03-02 08:39] LABS: Hematocrit 32.9 % (39.0-52.0); Hemoglobin 10.2 g/dL (13.0-18.0); Mean Corp Hgb Conc. 31.0 g/dL (33.0-37.0); Mean Corpuscular Volume 90.6 fL (80.0-94.0); Platelet Count 240 10^3/uL (130-400); Red Cell Dist. Width 17.8 % (11.5-14.5)
[2025-03-02 09:07] LABS: Blood Urea Nitrogen 18 mg/dl (9-20); Calcium 8.3 mg/dl (8.4-10.2); Carbon Dioxide 30 mmol/L (22-30); Chloride 101 mmol/L (98-107); Estimated Creatinine Clearance 82 ml/min; Glucose 93 mg/dl (70-99); Potassium 4.1 mmol/L (3.5-5.1); Sodium 133 mmol/L (135-145); eGFR > 60.00
[2025-03-02] MEDS: SENOKOT-S 2 TABLET PO ×2 (09:37→21:08)
[2025-03-02] MEDS: ELIQUIS 5 MG PO ×2 (09:37→21:08)
[2025-03-02] MEDS: OSCAL 500 + D 500 MG PO ×2 (09:37→21:08)
[2025-03-02] MEDS: MIRALAX 17 GRAMS PO (09:37)
[2025-03-02] MEDS: NEURONTIN 300 MG PO ×2 (09:37→21:08)
[2025-03-02] MEDS: SIMBRINZA 1%-0.2% OPHTH SUSP 1 DROP RIGHT EYE ×2 (09:37→21:10)
--- NOTE | 2025-03-02 10:14 | VNURNOTE ---
Chart reviewed.� Patient is current with [facility] nursing.� Will continue to follow hospital course and DC plans.
--- NOTE | 2025-03-02 15:34 | CM ---
CM reviewed chart, patient seen bedside with and son, initial assessment completed. Patient reports he resides with his son and in a one story home, two steps to enter. Patient has a walker, cane, commode, shower chair, bed rails, grabber
in the home. Patient is current with [facility], has been to [facility] SNF in past. Patient PCP Jimenez Fitzpatrick, pharmacy [facility] in [place]. CM discussed therapy recommendations of SNF, discussed patient is observation status, unless meets
inpatient criteria, patient will not be covered by insurance for SNF (patient is not part of the [facility] waiver program). [facility] form reviewed with family, refused to sign, provided with copy, placed in chart. Family inquiring if patient will be made
inpatient, if not, would like to know exact reasoning why patient is not inpatient status. Family also upset regarding documentation from previous admission stating patient/family refused SNF, per family, SNF was not discussed and they did not know
this was an option. CM discussed if patient does not meet inpatient criteria, would family be interested in privately paying for SNF. Family reports this is not something they can afford, would return home with [facility]. TT to Resident with update. CM
will continue to follow for all discharge planning need.s
Plan; home with family and [facility] versus SNF
[2025-03-02] MEDS: CRESTOR 20 MG PO (17:07)
--- NOTE | 2025-03-02 17:34 | W.PN.HOSP.TC ---
Addendum entered and electronically signed by Kimberly Ku MD 03/02/25 17:59:
I saw and evaluated the patient independently. I reviewed the resident�s note and agree with findings and plan as documented by Dr. Uriostegui.
GENERAL: chronically ill appearing male, cachectic in no apparent distress
HEENT: NC/AT
HEART: regular rate and rhythm, +S1, +S2
LUNGS : clear to auscultation bilaterally
ABDOM: soft, nontender, nondistended, + bowel sounds
EXT: no cyanosis, clubbing-- trace edema--posterior right shoulder pain
NEUROLOGIC: grossly intact
: condom cath
Generalized weakness, fatigue, anorexia, confusion, malaise--agree, likely multifactorial--medication effects (Keppra) VS underlying malignancy VS deconditioning--Keppra stopped--PT/OT rec SNF--recommended last admission but pt refused--does not
meet inpt criteria at this time
Episodic unresponsiveness-- possible syncope versus seizure--History of seizure-like episodes on levetiracetam, level pending--Recent episode occurred 2 hours after prolonged hot shower, possibly heat induced syncope with vasodilation or seizure
trigger--orthostatic by BP drop, hold toprol and lasix--ECHO WNL--EEG 02/23/2025.�The study was suggestive of diffuse cortical dysfunction with no focal abnormality. No symptoms were recorded
Mild asymptomatic hyponatremia--appears chronic--likely SIADH and reset osmostat from chronic should pain, possibly paraneoplastic from lung cancer--follow for now--fluid restrict
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 Sandoval
Right shoulder pain--Continue pain control as needed with Tylenol, oxycodone as needed, fentanyl patch transdermal--PT/OT is following--chronic x 5 years
Chronic Pain with Opioid Dependence--Related to bone metastasis and cancer related pain--Continue fentanyl patch, oxycodone and gabapentin as prior to admission
Paroxysmal Atrial Fibrillation---Toprol to be held due to syncope, bradycardia, hypotension-Continue Eliquis
Chronic HFpEF--Most recent echocardiogram shows ejection fraction of 55 to 60%-Weight is decreased from baseline according to family--Hold Lasix acutely due to syncope bradycardia hypotension--Follow orthostatic BPs--may need midodrine
Essential Hypertension--meds asa able
COPD without Acute Exacerbation--Stable. Continue umeclidinium-vilanterol
TASIA--Continue nightly PAP therapy--follow-up with Pulm as an outpatient.
DVT Proph-- On Eliquis
Code Status-- DNR
Original Note:
Today's Communication/Plan
-
- Will talk with family and case management regarding SNF
Assessment / Plan
Assessment / Plan
Generalized weakness, fatigue, anorexia, confusion, malaise
-Likely multifactorial in the setting of medication effects VS underlying malignancy VS deconditioning
-Holding prophylactic Keppra given concern for medication side effect
-PT/OT consulted and they recc skilled rehab for his weakness and deconditioning
- SNF was the patient at the last admission, but patient's family declined.
-Case management discussed with family on recommendations of SNF and that patient needs to meet inpatient criteria as patient will not be covered by insurance for SNF, discussed that if patient does not meet inpatient criteria family would have to
privately pay for an SNF. Will talk to the family.
Episodic unresponsiveness possible syncope versus seizure
-History of seizure-like episodes on levetiracetam, level pending
-Recent episode occurred 2 hours after prolonged hot shower, possibly heat induced syncope or seizure trigger
-Check orthostatics
-EEG 02/23/2025.�The study was suggestive of diffuse cortical dysfunction with no focal abnormality. No symptoms were recorded
-Holding prophylactic Keppra given concern for medication side effect
-Echocardiogram 02/23-normal left ventricular size and function. Normal regional wall motion. Left ventricular ejection fraction 55-60%
-Holding Toprol, Lasix given soft BPs
-PT/OT
Mild asymptomatic hyponatremia:
- Sodium level is 133 trending down from 134 yesterday
- Continue to trend the sodium level
- Creatinine is 0.5 with normal potassium levels
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
-SVC Syndrome s/p Radiation
-Patient receiving Xgeva and Keytruda
-Follows with Dr. Sandoval
Right shoulder pain
-Continue pain control as needed with Tylenol, oxycodone as needed, fentanyl patch transdermal
-PT/OT is following
Chronic Pain with Opioid Dependence
-Related to bone metastasis and cancer related pain
-Continue fentanyl patch, oxycodone and gabapentin as prior to admission
Paroxysmal Atrial Fibrillation:
-Toprol to be held due to syncope, bradycardia, hypotension
-Continue Eliquis
Chronic HFpEF
-Most recent echocardiogram shows ejection fraction of 55 to 60%
-Weight is decreased from baseline according to family.
-Hold Lasix acutely due to syncope bradycardia hypotension
-Follow orthostatic BPs.
SIADH
-Sodium level stable
-Continue fluid restriction
Essential Hypertension
-Blood pressures 120/57 and well-controlled
COPD without Acute Exacerbation
-Stable. Continue umeclidinium-vilanterol
TASIA
-Continue nightly PAP therapy.
-follow-up with Pulm as an outpatient.
DVT Prophylaxis: On Eliquis
Code Status: DNR
Anticipated Discharge: Within 24 hours
Subjective/Interval History
-
Date of Service: March 02, 2025
Patient is a 79-year-old male with past medical history significant for non-small cell lung carcinoma on Keytruda and Xgeva, CHF, A-fib, recent admission for syncope who presents to [facility] ED complaining of generalized weakness, fatigue,
anorexia, confusion and malaise. Patient was already admitted from 02/21/2025 to 02/24/2025 following a syncopal event at home with seizure-like characteristics. He had a similar episode also 1 month prior to that. On that admission he was prescribed
Keppra 500 mg twice daily for possible seizure activity. Since returning home and notes that patient has been weak, less active, poor appetite, lightheaded, and confused with malaise. All these new symptoms were not present prior to his recent
hospitalization. Keppra was then discontinued on this admission.
Chest x-ray on this admission showed treated malignancy in the right lung and bony metastatic disease
PT OT was consulted for generalized weakness
Objective Data
-
Labs:
Laboratory Results
03/02/25
07:19
WBC 6.8
Hgb 10.2 L
Hct 32.9 L
Plt Count 240
Sodium 133 L
Potassium 4.1
Chloride 101
Carbon Dioxide 30
BUN 18
Creatinine 0.5 L
Glucose 93
Calcium 8.3 L
Vital Signs:
Vital Signs
Temp Pulse Resp BP Pulse Ox
98.9 F 70 18 120/57 95
03/02/25 15:05 03/02/25 15:05 03/02/25 15:05 03/02/25 15:05 03/02/25 15:05
I&O
03/01/25 03/02/25 03/03/25
06:59 06:59 06:59
Intake Total 360 / 360 880 / 880
Output Total 1050 / 1050 600 / 600
Balance -690 / -690 280 / 280
Review of Systems
-
All other systems: Reviewed and negative (Except as documented)
Musculoskeletal: Reports Muscle Pain (Right shoulder pain around the right scapular area)
Physical Exam
-
General: Conversant, Appears Chronically Ill and Cachectic
HEENT: Normocephalic, Atraumatic and PERRLA
Respiratory: Non Labored Respirations
Cardiac: Regular Rhythm and S1/S2
GI: Soft, Nondistended and Normal Bowel Sounds
Musculoskeletal: No Edema and Other (Right shoulder pain, limited mobility due to pain)
Skin: Warm
Neuro: Awake
Psych: Calm
Data Reviewed
-
Diagnostic Radiology: Report Reviewed by me and Discussed with Physician
Labs: Labs Reviewed by me and Discussed with Physician
[2025-03-02] MEDS: LEXAPRO 5 MG PO (21:08)
[2025-03-02] MEDS: XALATAN OPHTHALMIC SOLUTION 1 DROP BOTH EYES (21:10)
[2025-03-03] VITALS (7 sets, daily range): BP systolic 82–137; BP diastolic 49–68; PULSE 2–82; BMI 20.3
[2025-03-03] MEDS: STRIVERDI RESPIMAT 2 PUFF INH (07:56)
[2025-03-03] MEDS: SPIRIVA RESPIMAT 2.5 MCG 2 PUFF INH (07:56)
[2025-03-03 08:08] LABS: Hematocrit 33.3 % (39.0-52.0); Hemoglobin 10.5 g/dL (13.0-18.0); Mean Corp Hgb Conc. 31.5 g/dL (33.0-37.0); Mean Corpuscular Volume 89.8 fL (80.0-94.0); Nucleated Red Blood Cells % 0 % (-); Platelet Count 235 10^3/uL (130-400); Red Cell Dist. Width 17.7 % (11.5-14.5)
[2025-03-03 08:20] LABS: ALT (SGPT) 20 U/L (0-50); AST (SGOT) 29 U/L (17-59); Albumin 3.1 g/dl (3.5-5.0); Alkaline Phosphatase 90 U/L (38-126); Blood Urea Nitrogen 17 mg/dl (9-20); Calcium 8.1 mg/dl (8.4-10.2); Carbon Dioxide 29 mmol/L (22-30); Chloride 99 mmol/L (98-107); Estimated Creatinine Clearance 83 ml/min; Glucose 101 mg/dl (70-99); Potassium 4.7 mmol/L (3.5-5.1); Sodium 132 mmol/L (135-145); Total Protein 5.7 g/dl (6.3-8.2); eGFR > 60.00
[2025-03-03] MEDS: ELIQUIS 5 MG PO ×2 (09:51→19:53)
[2025-03-03] MEDS: MIRALAX 17 GRAMS PO (09:51)
[2025-03-03] MEDS: OSCAL 500 + D 500 MG PO ×2 (09:51→19:54)
[2025-03-03] MEDS: NEURONTIN 300 MG PO ×2 (09:51→19:53)
[2025-03-03] MEDS: SENOKOT-S 2 TABLET PO ×2 (09:52→19:54)
[2025-03-03] MEDS: SIMBRINZA 1%-0.2% OPHTH SUSP 1 DROP RIGHT EYE ×2 (09:52→19:54)
[2025-03-03] MEDS: ROXICODONE 5 MG PO ×3 (09:56→19:54)
--- NOTE | 2025-03-03 15:14 | CM ---
Patient seen at bedside with physicians on . Patient concerned about obs status and patient physician reviewed criteria and plan is currently for discharge home with [facility] for follow up and CM to request SW to assist with supports. Patient
continues as OBS/HERNANDEZ status at this time. Patient did not indicate interest in [facility] referral at time time. CM will continue to follow for discharge planning needs.
Plan; [facility] referral with PT/OT and SW requested.
--- NOTE | 2025-03-03 16:03 | W.PN.HOSP.TC ---
Addendum entered and electronically signed by Kimberly Ku MD 03/03/25 17:24:
I saw and evaluated the patient independently. I reviewed the resident�s note and agree with findings and plan as documented by Dr. Uriostegui.
GENERAL: chronically ill appearing male, cachectic in no apparent distress
HEENT: NC/AT
HEART: regular rate and rhythm, +S1, +S2
LUNGS : clear to auscultation bilaterally
ABDOM: soft, nontender, nondistended, + bowel sounds
EXT: no cyanosis, clubbing-- trace edema--posterior right shoulder pain
NEUROLOGIC: grossly intact
: condom cath
Generalized weakness, fatigue, anorexia, confusion, malaise--agree, likely multifactorial--medication effects (Keppra which was started for apparent seizures last admission but EEG was negative) VS underlying malignancy and sequela VS deconditioning
but is orthostatic by BP drop and symptomatic, checking TSH, cortisol, will start low dose midodrine--Keppra stopped, await level (send out and not back)--PT/OT rec SNF--recommended last admission but pt refused--does not meet inpt criteria at this
time
Episodic unresponsiveness-- possible syncope versus seizure--History of seizure-like episodes on Keppra which was stopped, level pending--Recent episode occurred 2 hours after prolonged hot shower, possibly heat induced syncope with vasodilation or
seizure trigger--orthostatic by BP drop, holding toprol and lasix, giving bolus of NSS 500ml--ECHO WNL--EEG 02/23/2025�The study was suggestive of diffuse cortical dysfunction with no focal abnormality. No symptoms were recorded
Mild asymptomatic hyponatremia--appears chronic--likely SIADH and reset osmostat from chronic should pain, possibly paraneoplastic from lung cancer--follow for now--fluid restrict
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 Sandoval
Right shoulder pain--Continue pain control as needed with Tylenol, oxycodone as needed, fentanyl patch transdermal--PT/OT is following--chronic x 5 years
Chronic Pain with Opioid Dependence--Related to bone metastasis and cancer related pain--Continue fentanyl patch, oxycodone and gabapentin as prior to admission--narcotic meds could be contributing to orthostasis as well
Paroxysmal Atrial Fibrillation---Toprol to be held due to syncope, bradycardia, hypotension-Continue Eliquis
Chronic HFpEF--Most recent echocardiogram shows ejection fraction of 55 to 60%-Weight is decreased from baseline according to family--Hold Lasix acutely due to syncope, bradycardia, hypotension--Follow orthostatic BPs--may need midodrine
Essential Hypertension--meds asa able
COPD without Acute Exacerbation--Stable-- Continue umeclidinium-vilanterol
TASIA--Continue nightly PAP therapy--follow-up with Pulm as an outpatient.
DVT Proph-- On Eliquis
Code Status-- DNR
Original Note:
Today's Communication/Plan
-
.
Assessment / Plan
Assessment / Plan
Generalized weakness, fatigue, anorexia, confusion, malaise
- Patient was admitted for similar presentation on last admission
-Likely multifactorial in the setting of medication effects VS underlying malignancy VS deconditioning
-Holding prophylactic Keppra given concern for medication side effect, level of Keppra is still pending
-PT/OT consulted and they recc skilled rehab for his weakness and deconditioning
- SNF was the patient at the last admission, but patient's family declined.
-Case management discussed with family on recommendations of SNF and that patient needs to meet inpatient criteria as patient will not be covered by insurance for SNF, discussed that if patient does not meet inpatient criteria family would have to
privately pay for an SNF. Have talked to the family with team today, and explained that patient has the option of home with visiting nurse.
Episodic unresponsiveness possible syncope versus seizure:
-History of seizure-like episodes on levetiracetam, level pending
-Recent episode occurred 2 hours after prolonged hot shower, possibly heat induced syncope or seizure trigger
-orthostatics are positive -will hold Toprol, Lasix as they can decrease blood pressure and cause further exacerbate syncope. Ordered TSH and random cortisol for the am to check for thyroid disorders and adrenal insufficiency.. Can also be age
related.
-EEG 02/23/2025.�The study was suggestive of diffuse cortical dysfunction with no focal abnormality. No symptoms were recorded
-Holding prophylactic Keppra given concern for clinical features after administration of this medications.
-Echocardiogram 02/23-normal left ventricular size and function. Normal regional wall motion. Left ventricular ejection fraction 55-60%
- Previous echo showed a ejection fraction of 55-60%
-PT/OT for deconditioning and weakness
Mild asymptomatic hyponatremia:
- Sodium level is 132 trending down from 134 yesterday, probably siadh from stage Iv lung cancer
- Continue to trend the sodium level
- Creatinine is 0.5 with normal potassium levels
- restrict fluids for this euvolemic hyponatremia.
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
-SVC Syndrome s/p Radiation
-Patient receiving Xgeva and Keytruda
-Follows with Dr. Sandoval oncologist
Right shoulder pain
-Continue pain control as needed with Tylenol, oxycodone as needed, fentanyl patch transdermal
-PT/OT is following
Chronic Pain with Opioid Dependence
-Related to bone metastasis and cancer related pain
-Continue fentanyl patch, oxycodone and gabapentin as prior to admission
Paroxysmal Atrial Fibrillation:
-Toprol to be held due to syncope, bradycardia, hypotension
-Continue Eliquis
Chronic HFpEF
-Most recent echocardiogram shows ejection fraction of 55 to 60%
-Weight is decreased from baseline according to family.
-Hold Lasix acutely due to syncope bradycardia hypotension
-Follow orthostatic BPs.
SIADH
-Sodium level stable
-Continue fluid restriction
Essential Hypertension
-Blood pressures 120/57 and well-controlled
COPD without Acute Exacerbation
-Stable. Continue umeclidinium-vilanterol
TASIA
-Continue nightly PAP therapy.
-follow-up with Pulm as an outpatient.
DVT Prophylaxis: On Eliquis
Code Status: DNR
Anticipated Discharge: Today
Subjective/Interval History
-
Date of Service: March 03, 2025
No overnight events
No overnight events.
Objective Data
-
Labs:
Laboratory Results
03/03/25
07:51
WBC 8.0
Hgb 10.5 L
Hct 33.3 L
Plt Count 235
Sodium 132 L
Potassium 4.7
Chloride 99
Carbon Dioxide 29
BUN 17
Creatinine 0.5 L
Glucose 101 H
Calcium 8.1 L
Total Bilirubin 0.7
AST 29
ALT 20
Alkaline Phosphatase 90
Vital Signs:
Vital Signs
Temp Pulse Resp BP Pulse Ox
98.3 F 81 12 121/52 94
03/03/25 15:00 03/03/25 15:00 03/03/25 15:00 03/03/25 15:00 03/03/25 15:00
I&O
03/02/25 03/03/25 03/04/25
06:59 06:59 06:59
Intake Total 360 / 360 880 / 880
Output Total 1050 / 1050 750 / 750
Balance -690 / -690 130 / 130
Review of Systems
-
All other systems: Reviewed and negative (Except as documented)
Musculoskeletal: Reports Muscle Pain (Right shoulder pain around the right scapular area)
Physical Exam
-
General: Conversant, Appears Chronically Ill and Cachectic
HEENT: Normocephalic, Atraumatic and PERRLA
Respiratory: Non Labored Respirations
Cardiac: Regular Rhythm and S1/S2
GI: Soft, Nondistended and Normal Bowel Sounds
Musculoskeletal: No Edema and Other (Right shoulder pain, limited mobility due to pain)
Skin: Warm
Neuro: Awake
Psych: Calm
Data Reviewed
-
Labs: Labs Reviewed by me and Discussed with Physician
[2025-03-03] MEDS: CRESTOR 20 MG PO (17:06)
[2025-03-03] MEDS: NSS 500 IV (17:06)
--- NOTE | 2025-03-03 18:20 | W.PN.UPDATE ---
Update Note
Progress Note Update
Patient was not happy with the patient's observation status. Also not happy that his 'new symptoms' were not being addressed. The symptoms include dizziness, sleeping all the time, no appetite, lightheadedness, near-syncope. In my view, this
is consistent with malaise and general weakness as documented in the admitting history and physical. Explained to patient's that I cannot change observation status at this time since he does not meet inpatient criteria. I also explained that
we have doctors that look at this on a daily basis and that if he qualified for inpatient status that I would change it at that time. Otherwise, this is fraud which I cannot do. She did not seem happy with that answer and wish to speak to the
pediatric medical assistant. I did refer her to the [employer]EL[employer]'s office.
[2025-03-03] MEDS: LEXAPRO 5 MG PO (21:38)
[2025-03-03] MEDS: XALATAN OPHTHALMIC SOLUTION 1 DROP BOTH EYES (21:38)
[2025-03-04] VITALS (11 sets, daily range): BP systolic 93–134; BP diastolic 52–68; PULSE 2–102; BMI 21.4
[2025-03-04] MEDS: DURAGESIC 12 MCG/HR PATCH 1 PATCH TRANSDERM (01:32)
[2025-03-04] MEDS: DURAGESIC 25 MCG/HR PATCH 1 PATCH TRANSDERM (01:33)
[2025-03-04] MEDS: REMOVE DURAGESIC PATCH 2 PATCH REMOVE (01:46)
--- NOTE | 2025-03-04 01:49 | PTCARENOTE ---
Pt 12mcg/hr and 25mcg/hr Fentanyl patch removed, wasted and new ones reapplied per order. Mansoor Lowery RN witness. Pyxis only gave option for 12mcg/hr Fentanyl patch to be wasted. 12 mcg/hr patch wasted in pyxis, 25mcg/h waste did not populate an
option for waste. However, both physical patches wasted with Mansoor Lowery RN. Spoke with Alejandro from pharmacy and informed him that only the 12mcg/hr Fentanyl patch was able to be wasted in the Pyxis and that it did not give an option for the
25mcg/hr patch to be wasted. Pharmacist aware and says will pass on to dayshift pharmacist to get sorted out.
[2025-03-04] MEDS: STRIVERDI RESPIMAT 2 PUFF INH (08:05)
[2025-03-04] MEDS: SPIRIVA RESPIMAT 2.5 MCG 2 PUFF INH (08:05)
[2025-03-04 08:13] LABS: Hematocrit 33.1 % (39.0-52.0); Hemoglobin 10.6 g/dL (13.0-18.0); Mean Corp Hgb Conc. 32.0 g/dL (33.0-37.0); Mean Corpuscular Volume 88.7 fL (80.0-94.0); Nucleated Red Blood Cells % 0 % (-); Platelet Count 242 10^3/uL (130-400); Red Cell Dist. Width 17.8 % (11.5-14.5)
[2025-03-04] MEDS: ELIQUIS 5 MG PO ×2 (08:21→20:59)
[2025-03-04] MEDS: NEURONTIN 300 MG PO ×2 (08:21→20:59)
[2025-03-04] MEDS: MIRALAX 17 GRAMS PO (08:21)
[2025-03-04] MEDS: OSCAL 500 + D 500 MG PO ×2 (08:21→20:59)
[2025-03-04] MEDS: SENOKOT-S 2 TABLET PO ×2 (08:21→20:59)
[2025-03-04] MEDS: SIMBRINZA 1%-0.2% OPHTH SUSP 1 DROP RIGHT EYE ×2 (08:27→20:59)
[2025-03-04] MEDS: ROXICODONE 5 MG PO ×3 (08:42→20:59)
[2025-03-04 08:43] LABS: ALT (SGPT) 17 U/L (0-50); AST (SGOT) 22 U/L (17-59); Albumin 3.0 g/dl (3.5-5.0); Alkaline Phosphatase 93 U/L (38-126); Blood Urea Nitrogen 14 mg/dl (9-20); Calcium 8.1 mg/dl (8.4-10.2); Carbon Dioxide 28 mmol/L (22-30); Chloride 100 mmol/L (98-107); Estimated Creatinine Clearance 87 ml/min; Glucose 90 mg/dl (70-99); Potassium 4.2 mmol/L (3.5-5.1); Sodium 131 mmol/L (135-145); Total Protein 5.5 g/dl (6.3-8.2); eGFR > 60.00
[2025-03-04 09:15] LABS: Cortisol, Random 28.7 ug/dl; TSH 3.40 uIU/ml (0.47-4.68)
--- NOTE | 2025-03-04 09:35 | W.PN.UPDATE ---
Update Note
Progress Note Update
I spoke with Mrs. Higgins, Mr. Higgins, and their son.
Issues discussed
Observation vs. inpatient. According to utilization review, he can be inpatient now that his second set of orthostatic vitals are positive. Mrs. Higgins believes she did not receive HERNANDEZ notice this admit.
Keppra
- Patient and family received no education regarding potential side effects
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
- Concern for abrupt withdrawal seizures -> I relayed this was very unlikely given short duration use
- Concern for toxicity -> Keppra level is low end of therapeutic (12) and not toxic in that sense. Clearly, however, it does not agree with Mr. Higgins given his clinical decline shortly after starting it. It has been held since admit and I
added it to Allergies as an intolerance so it not used again
Orthostasis - meds held include Keppra, metoprolol, and furosemide. Family would like Dr. Dempsey's input of holding and/or resuming those medications
Acetaminophen order - Mr. Higgins previously used acetaminophen with great pain relief. However, he developed LFT abnormalities and it was held. Upon re-challenge with medication, it again led to LFT abnormalities. It should not be used by us
going forward. Added as intolerance as well
Chart errors - there were some chart discrepancies they wished corrected and the will discuss this with Drs. Uriostegui and [place]
Amilcar Dunn MD
--- NOTE | 2025-03-04 12:41 | W.PN.HOSP.TC ---
Addendum entered and electronically signed by Kimberly Ku MD 03/04/25 16:06:
I saw and evaluated the patient independently. I reviewed the resident�s note and agree with findings and plan as documented by Dr. Uriostegui.
GENERAL: chronically ill appearing male, cachectic in no apparent distress--sleeping
HEENT: NC/AT
HEART: regular rate and rhythm, +S1, +S2
LUNGS : clear to auscultation bilaterally
ABDOM: soft, nontender, nondistended, + bowel sounds
EXT: no cyanosis, clubbing-- trace edema--posterior right shoulder pain
NEUROLOGIC: grossly intact
: condom cath
Generalized weakness, fatigue, anorexia, confusion, malaise--agree, likely multifactorial--medication effects (Keppra which was started for apparent seizures last admission but EEG was negative), underlying malignancy and sequela, deconditioning but
is orthostatic by BP drop and symptomatic, TSH and cortisol WNL--cont midodrine--Keppra stopped, level (which was sent out on admission) is NOT elevated (low normal range in fact) and therefore shows NO EVIDENCE of keppra toxicity--PT/OT rec
SNF--recommended last admission but pt refused--pt today 03/04 is now inpt after persistent positive orthostatic VS--consult renal with dropping sodium
Hyponatremia--sodium 135 on admission but dropping to 131--cont IVF--await renal input
Recent Episodic unresponsiveness (last admission)-- possible syncope versus seizure--History of seizure-like episodes on Keppra which was stopped, level pending--Recent episode occurred 2 hours after prolonged hot shower, possibly heat induced
syncope with vasodilation or seizure trigger--orthostatic by BP drop, holding toprol and lasix, will consult cards--ECHO WNL--EEG 02/23/2025�The study was suggestive of diffuse cortical dysfunction with no focal abnormality. No symptoms were recorded
Mild asymptomatic hyponatremia--appears chronic--likely SIADH and reset osmostat from chronic shoulder pain, possibly paraneoplastic from lung cancer--follow for now--fluid restrict
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 Sandoval
Right shoulder pain--Continue pain control as needed with Tylenol, oxycodone as needed, fentanyl patch transdermal--PT/OT is following--chronic x 5 years
Chronic Pain with Opioid Dependence--Related to bone metastasis and cancer related pain--Continue fentanyl patch, oxycodone and gabapentin as prior to admission--narcotic meds could be contributing to orthostasis as well
Paroxysmal Atrial Fibrillation---Toprol to be held due to syncope, bradycardia, hypotension-Continue Eliquis
Chronic HFpEF--Most recent echocardiogram shows ejection fraction of 55 to 60%-Weight is decreased from baseline according to family--Hold Lasix acutely due to syncope, bradycardia, hypotension--Follow orthostatic BPs--may need midodrine--await
cards input
Essential Hypertension--meds asa able
COPD without Acute Exacerbation--Stable-- Continue umeclidinium-vilanterol
TASIA--Continue nightly PAP therapy--follow-up with Pulm as an outpatient.
DVT Proph-- On Eliquis
Code Status-- DNR
updated at bedside--she provided SNF options to CM
Original Note:
Today's Communication/Plan
-
- Trend CMP
Assessment / Plan
Assessment / Plan
Generalized weakness, fatigue, anorexia, confusion, malaise
- Patient was admitted for similar presentation on last admission
-Likely multifactorial in the setting of medication effects VS underlying malignancy VS deconditioning
-PT/OT consulted and they recc skilled rehab for his weakness and deconditioning
- SNF was the patient at the last admission, but patient's family declined.
- Pts level of care changed to inpatient care as second set of orthostatic vitals positive.
- Patient does not tolerate Kepra, so we will discontinue it. Kepra level has resulted and it is therapeutic at a level of 12.2 and NOT elevated.
Episodic unresponsiveness possible syncope versus seizure:
-History of seizure-like episodes on levetiracetam, level pending
-Recent episode occurred 2 hours after prolonged hot shower, possibly heat induced syncope or seizure trigger
-orthostatics are positive
-EEG 02/23/2025.�The study was suggestive of diffuse cortical dysfunction with no focal abnormality. No symptoms were recorded
-Echocardiogram 02/23-normal left ventricular size and function. Normal regional wall motion. Left ventricular ejection fraction 55-60%
- Previous echo showed a ejection fraction of 55-60%
-PT/OT for deconditioning and weakness
- Changed midodrine from 2.5 mg to 5 mg to help increase blood pressures due to positive orthostatic vitals. ( >20 mg systolic drop)
- will hold Toprol, Lasix as they can decrease blood pressure and cause further exacerbate syncope.
- Tsh is normal. Morning cortisol is slightly elevated at 28.
Mild asymptomatic hyponatremia:
- Creatinine is 0.5 with normal potassium levels
- Sodium level is 131 trending down from 132 yesterday, probably siadh from stage Iv lung cancer
- As per renal whom were consulted , will try a small IV infusion at 60 ml normal saline per hour to help keep pressures up. Low BP increases ADH drive more than SIADH, and hence we should wait and watch to see if orthostatics improve. continue to
trend CMP.
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
-SVC Syndrome s/p Radiation
-Patient receiving Xgeva and Keytruda
-Follows with Dr. Sandoval oncologist
Right shoulder pain
-Continue pain control as needed with oxycodone as needed, fentanyl patch transdermal
-PT/OT is following
- Tylenol was held as per patients wish regarding elevated LFT's, however upon chart review for this admission, there are no elevated LFTs.
Chronic Pain with Opioid Dependence
-Related to bone metastasis and cancer related pain
-Continue fentanyl patch, oxycodone and gabapentin as prior to admission
Paroxysmal Atrial Fibrillation:
-Toprol to be held due to syncope, bradycardia, hypotension
-Continue Eliquis
Chronic HFpEF
-Most recent echocardiogram shows ejection fraction of 55 to 60%
-Weight is decreased from baseline according to family.
-Hold Lasix acutely due to syncope bradycardia hypotension
-Follow orthostatic BPs.
SIADH
-Sodium level stable
-Continue fluid restriction
Essential Hypertension
-Blood pressures 120/57 and well-controlled
COPD without Acute Exacerbation
-Stable. Continue umeclidinium-vilanterol
TASIA
-Continue nightly PAP therapy.
-follow-up with Pulm as an outpatient.
DVT Prophylaxis: On Eliquis
Code Status: DNR
Anticipated Discharge: 24 - 48 hours
Subjective/Interval History
-
Date of Service: March 04, 2025
No overnight events
No acute medical complaints.
Objective Data
-
Labs:
Laboratory Results
03/04/25
07:52
WBC 7.4
Hgb 10.6 L
Hct 33.1 L
Plt Count 242
Sodium 131 L
Potassium 4.2
Chloride 100
Carbon Dioxide 28
BUN 14
Creatinine 0.5 L
Glucose 90
Calcium 8.1 L
Total Bilirubin 0.6
AST 22
ALT 17
Alkaline Phosphatase 93
Vital Signs:
Vital Signs
Temp Pulse Resp BP Pulse Ox
98.2 F 83 18 123/59 97
03/04/25 11:00 03/04/25 11:00 03/04/25 11:00 03/04/25 11:00 03/04/25 11:00
I&O
03/03/25 03/04/25 03/05/25
06:59 06:59 06:59
Intake Total 880 / 880 240 / 240
Output Total 750 / 750 350 / 350 1000 / 1000
Balance 130 / 130 -110 / -110 -1000 / -1000
Review of Systems
-
All other systems: Reviewed and negative (Except as documented)
Musculoskeletal: Reports Muscle Pain (Right shoulder pain around the right scapular area)
Physical Exam
-
General: Conversant, Appears Chronically Ill and Cachectic
HEENT: Normocephalic, Atraumatic and PERRLA
Respiratory: Non Labored Respirations
Cardiac: Regular Rhythm and S1/S2
GI: Soft, Nondistended and Normal Bowel Sounds
Musculoskeletal: No Edema and Other (Right shoulder pain, limited mobility due to pain)
Skin: Warm
Neuro: Awake
Psych: Calm
[2025-03-04] MEDS: NSS 1000 IV (13:35)
--- NOTE | 2025-03-04 14:40 | CM ---
Addendum entered by Winnie North 03/04/25 15:42:
[facility] declined patient, Timmy with some questions awaiting responses from physicians will update Timmy in the am.
Original Note:
Patient now INP, IMM provided to patient at bedside with physicians on . Patient requesting placement [facility] or [facility], CM will send referrals. Patient was at [facility] in the past and per he was transported to oncologist for
Medications by family. CM will send referral and await response. CM will continue to follow for discharge planning needs.
Plan; SNF; pending acceptance/bed availability
--- NOTE | 2025-03-04 15:59 | CON.CAR ---
Consultation
Consultation Request
Date/Time Consultation Requested: March 04, 2025
Date/Time Consultation Performed: March 04, 2025
Requesting Provider: Hospitalist
Performing Provider: Roselyn
Reason for Consultation: Orthostatic hypotension
Medical History
-
Chief Complaint: Orthostatic hypotension
History of Present Illness:
79-year-old male with extensive past medical history and a history of lung cancer who presents after a 2-hour hot shower while he was sitting in a shower chair as he likes to have a 'sauna 'and after he stood up from the shower chair after 2 hours
in the hot shower he fell backwards and had transient loss of consciousness�vasovagal syncope. He also had an event like this where he slumped over in the chair 1 month ago. He carries a history of paroxysmal atrial fibrillation and has seen a
decline in his functional status with his lung cancer over the last 1 to 2 months with significant weight loss. BMI today is noted at 21.3. Prior to this to significant weight loss he has had situation of heart failure preserved ejection fraction
with most recent echo from early February with normal ejection fraction no evidence for elevated pressures and a chest x-ray which demonstrated treated lung cancer without any evidence of CHF. He was also recently started on Keppra and per his son he
was staring at his right arm for 30 minutes and watching the pulse in his vein. Per oncology he is tolerating Keytruda with stable metastatic disease. MRI did not demonstrate any metastatic disease in the brain.
Past medical history is extensive.
They only been taking metoprolol every other day at 12.5 mg daily. He has been taking his Lasix even on the day where he passed out. This has been held through hospitalization and currently is on midodrine 5 mg 3 times daily with positive
orthostatic vital signs
Past Medical History
Past Medical History: Arrhythmias and Cancer
Social History
Tobacco: Former Smoker
Alcohol: None
Drug: None
Personal:
Living: With Family
Employment: Retired
Family History
Family History: Reviewed & Not Pertinent
Allergies / Home Medications
Allergy/AdvReac Type Severity Reaction Status Date / Time
levetiracetam (From [facility]) AdvReac Severe Fatigue Verified 03/04/25 09:11
acetaminophen AdvReac Intermediate LFT Verified 03/04/25 09:11
abnormalities
Hayfever Allergy Sneezing, Uncoded 03/04/25 09:11
watery/itchy
eyes,
stuffy nose
�Medication �Instructions �Recorded �Confirmed �Type
brinzolamide 1 %-brimonidine 0.2 % 1 drp RIGHT EYE BID Eye Condition 04/09/23 03/01/25 History
eye drops,suspension (Simbrinza)
sjihcghvgrjm-myubwihj-obetqx tablet 1 tab PO DAILY Supplement 04/09/23 03/01/25 History
travoprost 0.004 % eye drops 1 drp BOTH EYES HS Eye Condition 04/09/23 03/01/25 History
umeclidinium 62.5 mcg-vilanterol 1 inh inhalation R QPM 04/09/23 03/01/25 History
25 mcg/actuation powdr for Lung/Breathing Issues
inhalation (Anoro Ellipta)
apixaban 5 mg tablet (Eliquis) 5 mg PO BID #60 tabs 04/10/23 03/01/25 Rx
polyethylene glycol 3350 17 gram 17 g PO DAILYPRN PRN constipation 05/04/24 03/01/25 Rx
oral powder packet (HealthyLax) #100 ea
bisacodyl 10 mg rectal suppository 10 mg [place] DAILYPRN PRN if no bm x 3 05/14/24 03/01/25 History
(Dulcolax (bisacodyl)) days
oxycodone 5 mg tablet 5 mg PO .Q4-6HPRN PRN severe pain 05/14/24 03/01/25 History
Keytruda 1 dose IV Q3W Cancer 11/18/24 03/01/25 History
denosumab 120 mg/1.7 mL (70 mg/mL) 120 mg SC Q6W Cancer 11/18/24 03/01/25 History
subcutaneous solution (Xgeva)
gabapentin 300 mg capsule 300 mg PO BID Neurological 11/18/24 03/01/25 History
Condition
levalbuterol tartrate 45 1 puff inhalation DAILYPRN PRN sob 11/18/24 03/01/25 History
mcg/actuation aerosol inhaler
magnesium chloride 71.5 mg 143 mg PO DAILY Supplement 11/18/24 03/01/25 History
(magnesium chloride)
tablet,delayed release (Slow-Mag)
metoprolol succinate 25 mg capsule 12.5 mg PO DAILY Blood Pressure 11/18/24 03/01/25 History
sprinkle, ext. release 24 hr
psyllium 1 packet PO DAILY Constipation 11/18/24 03/01/25 History
rosuvastatin 20 mg tablet 20 mg PO .DINNER High Cholesterol 11/18/24 03/01/25 History
sennosides 8.6 mg-docusate sodium 2 tab-cap PO BID Constipation 11/18/24 03/01/25 History
50 mg tablet (Senokot-S)
furosemide 20 mg tablet 20 mg PO DAILY #30 tabs 11/24/24 03/01/25 Rx
Calcium 500mg With D3 25mcg 2 tab PO BID Supplement 01/20/25 03/01/25 History
fentanyl 12 mcg/hr transdermal 1 patch transdermal Q72H Pain 01/20/25 03/01/25 History
patch
fentanyl 25 mcg/hr transdermal 1 patch transdermal Q72H Pain 01/20/25 03/01/25 History
patch
hydrocortisone 1 % lotion (Aquanil 1 applic topical DAILY 01/20/25 03/01/25 History
HC) Anti-Inflammatory
escitalopram oxalate 5 mg tablet 5 mg PO HS Mental Health/Anxiety 02/21/25 03/01/25 History
(Lexapro)
sodium phosphates 19 gram-7 118 ml AL DAILY PRN IF NO BM X4 02/21/25 03/01/25 History
gram/118 mL enema (Fleet Enema) DAYS
levetiracetam 500 mg tablet 500 mg PO BID #60 tabs 02/24/25 03/01/25 Rx
Review of Systems
-
History Source: Patient
Constitutional: Weight Loss and Fatigue
Cardiac: Syncope
Physical Exam
Vital Signs
Temp Pulse Resp BP Pulse Ox
98.2 F 83 18 123/59 97
03/04/25 11:00 03/04/25 13:35 03/04/25 11:00 03/04/25 13:35 03/04/25 11:00
Lab Results
03/04/25 07:52
03/04/25 07:52
Physical Exam
General: Poor Appetite and Other (Cachexia)
HEENT: Normocephalic and Anicteric
Respiratory: Non Labored Respirations
Cardiac: Regular Rhythm and Murmur (No murmur)
Breast: Deferred by me
GI: Soft, Non Tender and Non Distended
Rectal: Deferred by Provider
Musculoskeletal: No Clubbing and No Edema
Skin: Warm and Dry
Neuro: Awake, Alert and Oriented
Hematologic/Lymphatic: No Lymphadenopathy
Psych: Calm
Impression / Plan
-
PCP: Dr. Jimenez Fitzpatrick
Primary Staff Assistant: Dr. Dempsey
Assessment:
Admitted with orthostatic hypotension
Syncope�vasovagal mechanism
Cachexia
Diminished functional status
Presentation with dyspnea, edema 11/17/24
Chronic HFpEF�she appears volume deplete
Paroxysmal atrial fibrillation
Chronic OAC with Eliquis
Hypertension
Hyperlipidemia
Bifascicular block
COPD/emphysema
Metastatic NSCLC s/p XRT, currently on Keytruda
SVC syndrome, currently receiving radiation�improvement after radiation of upper extremity edema
Thyroid nodules
BPH
Tobacco abuse
Thoracic aortic aneurysm 4.[address] in [address] of chest
Diverticulitis with diverticular abscess with colon resection
Chronic neck and back pain
Former alcoholic
DNR code status
ECHO 11/18/24: EF 55-60%, normal RWM, mild TR, trivial pericardial effusion, dilated aortic root
Plan:
- Reviewed treatment notes from internal medicine and Dr. Dunn. I had a long discussion with patient and son at the bedside from whom I know as an outpatient. Clearly he has had a dynamic change in volume status with his weight loss and
cachexia. As such I am supportive of stopping Lasix and metoprolol at this time. I have no objection to the midodrine as ordered as long as he does not become hypertensive.
- Would avoid any other hypertensive medications
- Defer on Keppra use although it appears to be contributing to his delirium and would agree to stop as long as internal medicine and/or neurology feel that way
- If he has continued falls we may need to abandon Eliquis use although given his functional status it would be preferable to avoid any further neurologic event and would continue at this time
- We will follow with you
Data Reviewed
-
EKG: Tracing Personally Visualized and interpreted
Radiology: Image Personally Visualized and interpreted
CT Scan: Report Reviewed by me
Ultrasound: Report Reviewed by me
MRI: Report Reviewed by me
Medical Tests (Nuc Med, Echo etc): Report Reviewed by me
Labs: Labs Reviewed by me
Old Records: Reviewed
--- NOTE | 2025-03-04 16:03 | CON.CAR ---
Consultation
Consultation Request
Date/Time Consultation Requested: 03/04/2025
Date/Time Consultation Performed: 03/04/2025
Requesting Provider: Dr. López
Performing Provider: Janeen Hwang PA-C for Dr. Dempsey
Reason for Consultation: Weakness, syncope
Medical History
-
History of Present Illness:
Patient is an 80-year-old male with past medical history significant for PAF, hypertension, hyperlipidemia, coronary calcification on chest CT, COPD/emphysema, metastatic NSCLC s/p XRT currently on keytruda, SVC syndrome receiving radiation, thyroid
nodules, thoracic aortic aneurysm, diverticulitis with diverticular abscess and colon resection, ongoing nicotine/tobacco abuse who presented to emergency department 02/28/2025 with generalized weakness, fatigue, anorexia, effusion and malaise.
Patient was recently admitted 02/21 to 02/24/2025 following syncopal event and was felt to have possible seizure and was started on Keppra.
PMH:
Paroxysmal atrial fibrillation
Chronic OAC with eliquis
Hypertension
Hyperlipidemia
Bifascicular block
COPD/emphysema
Metastatic NSCLC s/p XRT, currently on keytruda
SVC syndrome, currently receiving radiation
Thyroid nodules
BPH
Thoracic aortic aneurysm 4.[address] in 2019
Coronary calcification on CT of chest
Diverticulitis with diverticular abscess with colon resection
Chronic neck and back pain
Former alcoholic
Former tobacco use
Past Medical History
Past Medical History: Other (See HPI)
Past Surgical History: Appendectomy, Bowel Resection (diverticular abscess requiring colon resection), Orthopedic (right shoulder surgery, left wrist CTS,), Tonsilectomy and Other (right inguinal hernia repair, bilateral cataract extraction, )
Social History
Tobacco: Former Smoker
Alcohol: Former
Drug: None
Personal:
Living: With Family
Family History
Family History: Other (Father had hypertension, CLL, CAD/HF, stroke; mother had breast cancer, PE)
Allergies / Home Medications
Allergy/AdvReac Type Severity Reaction Status Date / Time
levetiracetam (From [facility]) AdvReac Severe Fatigue Verified 03/04/25 09:11
acetaminophen AdvReac Intermediate LFT Verified 03/04/25 09:11
abnormalities
Hayfever Allergy Sneezing, Uncoded 03/04/25 09:11
watery/itchy
eyes,
stuffy nose
�Medication �Instructions �Recorded �Confirmed �Type
brinzolamide 1 %-brimonidine 0.2 % 1 drp RIGHT EYE BID Eye Condition 04/09/23 03/01/25 History
eye drops,suspension (Simbrinza)
nilbtdklkxpl-ueftamvw-mwzhkg tablet 1 tab PO DAILY Supplement 04/09/23 03/01/25 History
travoprost 0.004 % eye drops 1 drp BOTH EYES HS Eye Condition 04/09/23 03/01/25 History
umeclidinium 62.5 mcg-vilanterol 1 inh inhalation R QPM 04/09/23 03/01/25 History
25 mcg/actuation powdr for Lung/Breathing Issues
inhalation (Anoro Ellipta)
apixaban 5 mg tablet (Eliquis) 5 mg PO BID #60 tabs 04/10/23 03/01/25 Rx
polyethylene glycol 3350 17 gram 17 g PO DAILYPRN PRN constipation 05/04/24 03/01/25 Rx
oral powder packet (HealthyLax) #100 ea
bisacodyl 10 mg rectal suppository 10 mg [place] DAILYPRN PRN if no bm x 3 05/14/24 03/01/25 History
(Dulcolax (bisacodyl)) days
oxycodone 5 mg tablet 5 mg PO .Q4-6HPRN PRN severe pain 05/14/24 03/01/25 History
Keytruda 1 dose IV Q3W Cancer 11/18/24 03/01/25 History
denosumab 120 mg/1.7 mL (70 mg/mL) 120 mg SC Q6W Cancer 11/18/24 03/01/25 History
subcutaneous solution (Xgeva)
gabapentin 300 mg capsule 300 mg PO BID Neurological 11/18/24 03/01/25 History
Condition
levalbuterol tartrate 45 1 puff inhalation DAILYPRN PRN sob 11/18/24 03/01/25 History
mcg/actuation aerosol inhaler
magnesium chloride 71.5 mg 143 mg PO DAILY Supplement 11/18/24 03/01/25 History
(magnesium chloride)
tablet,delayed release (Slow-Mag)
metoprolol succinate 25 mg capsule 12.5 mg PO DAILY Blood Pressure 11/18/24 03/01/25 History
sprinkle, ext. release 24 hr
psyllium 1 packet PO DAILY Constipation 11/18/24 03/01/25 History
rosuvastatin 20 mg tablet 20 mg PO .DINNER High Cholesterol 11/18/24 03/01/25 History
sennosides 8.6 mg-docusate sodium 2 tab-cap PO BID Constipation 11/18/24 03/01/25 History
50 mg tablet (Senokot-S)
furosemide 20 mg tablet 20 mg PO DAILY #30 tabs 11/24/24 03/01/25 Rx
Calcium 500mg With D3 25mcg 2 tab PO BID Supplement 01/20/25 03/01/25 History
fentanyl 12 mcg/hr transdermal 1 patch transdermal Q72H Pain 01/20/25 03/01/25 History
patch
fentanyl 25 mcg/hr transdermal 1 patch transdermal Q72H Pain 01/20/25 03/01/25 History
patch
hydrocortisone 1 % lotion (Aquanil 1 applic topical DAILY 01/20/25 03/01/25 History
HC) Anti-Inflammatory
escitalopram oxalate 5 mg tablet 5 mg PO HS Mental Health/Anxiety 02/21/25 03/01/25 History
(Lexapro)
sodium phosphates 19 gram-7 118 ml [place] DAILY PRN IF NO BM X4 02/21/25 03/01/25 History
gram/118 mL enema (Fleet Enema) DAYS
levetiracetam 500 mg tablet 500 mg PO BID #60 tabs 02/24/25 03/01/25 Rx
Physical Exam
Vital Signs
Temp Pulse Resp BP Pulse Ox
98.2 F 83 18 123/59 97
03/04/25 11:00 03/04/25 13:35 03/04/25 11:00 03/04/25 13:35 03/04/25 11:00
Lab Results
03/04/25 07:52
03/04/25 07:52
--- NOTE | 2025-03-04 16:48 | W.PN.UPDATE ---
Update Note
Progress Note Update
Tried contacting son Froylan and it went to voicemail. left a message to call back with any questions/concerns.
[2025-03-04] MEDS: CRESTOR 20 MG PO (16:49)
--- NOTE | 2025-03-04 16:49 | W.CON.NEPH ---
Consultation
-
Date/Time Consultation Requested: 03/04/25 1212
Date/Time Consultation Performed: 03/04/25 1715
Requesting Provider: Arya Zamora
Performing Provider: Sima Mckeon
Reason for Consultation: hypoantremia
Medical History
-
Chief Complaint: Weakness and malaise
History of Present Illness:
79y M with PMH significant for stage4 NSCLC on Keytruda / Xgeva, CHF on lasix , A-Fib on AC with Eliquis, rate control with low dose metoprolol, chr pain on fentanyl, gabapentin, chr hyponatremia baseline in 130s who has recent admission for syncope
from 02/21 to 02/24 felt to be neurogenic sz like and started on Keppra presented back to ED on 02/28 with complaining of generalized weakness, fatigue, anorexia, confusion and malaise. Since his last d/c family notes that patient has been weak, less
active with poor appetite, lightheadedness and 'near syncope', intermittent confusion and general malaise. All are new symptoms that were not present prior to his recent hospitalization. He reportedly noted to be orthostatic hypotension. HIs sodium
was 135 on admit and with slow decrease 131 today hence nephrology consulted. He received intermittent 500cc bolusx2. Midodrine initiated since yesterday. he is now changed from obs status to inpt. He still with lightheadedness, no cp or sob. chr
cough no change. no abd pain or n/v, he drinks protein shakes at home. Right UE is swollen chronically.
Past Medical History
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
SVC Syndrome
Chronic Pain with Opioid Dependence
Paroxysmal Atrial Fibrillation
Chronic HFpEF
SIADH
Essential Hypertension
Hyperlipidemia
COPD
BPH
Past Surgical History: Other (Appendectomy Hernia Repair Right Shoulder Surgery Left Wrist Carpectomy Bilateral Cataracts)
Social History
Tobacco: Former Smoker
Alcohol: None
Drug: None
Personal:
Family History
Family History: Not Pertinent
Allergies / Home Medications
Allergy/AdvReac Type Severity Reaction Status Date / Time
levetiracetam (From [facility]) AdvReac Severe Fatigue Verified 03/04/25 09:11
acetaminophen AdvReac Intermediate LFT Verified 03/04/25 09:11
abnormalities
Hayfever Allergy Sneezing, Uncoded 03/04/25 09:11
watery/itchy
eyes,
stuffy nose
�Medication �Instructions �Recorded �Confirmed �Type
brinzolamide 1 %-brimonidine 0.2 % 1 drp RIGHT EYE BID Eye Condition 04/09/23 03/01/25 History
eye drops,suspension (Simbrinza)
qzbirgezidvq-kafgjwkr-rphfpk tablet 1 tab PO DAILY Supplement 04/09/23 03/01/25 History
travoprost 0.004 % eye drops 1 drp BOTH EYES HS Eye Condition 04/09/23 03/01/25 History
umeclidinium 62.5 mcg-vilanterol 1 inh inhalation R QPM 04/09/23 03/01/25 History
25 mcg/actuation powdr for Lung/Breathing Issues
inhalation (Anoro Ellipta)
apixaban 5 mg tablet (Eliquis) 5 mg PO BID #60 tabs 04/10/23 03/01/25 Rx
polyethylene glycol 3350 17 gram 17 g PO DAILYPRN PRN constipation 05/04/24 03/01/25 Rx
oral powder packet (HealthyLax) #100 ea
bisacodyl 10 mg rectal suppository 10 mg [place] DAILYPRN PRN if no bm x 3 05/14/24 03/01/25 History
(Dulcolax (bisacodyl)) days
oxycodone 5 mg tablet 5 mg PO .Q4-6HPRN PRN severe pain 05/14/24 03/01/25 History
Keytruda 1 dose IV Q3W Cancer 11/18/24 03/01/25 History
denosumab 120 mg/1.7 mL (70 mg/mL) 120 mg SC Q6W Cancer 11/18/24 03/01/25 History
subcutaneous solution (Xgeva)
gabapentin 300 mg capsule 300 mg PO BID Neurological 11/18/24 03/01/25 History
Condition
levalbuterol tartrate 45 1 puff inhalation DAILYPRN PRN sob 11/18/24 03/01/25 History
mcg/actuation aerosol inhaler
magnesium chloride 71.5 mg 143 mg PO DAILY Supplement 11/18/24 03/01/25 History
(magnesium chloride)
tablet,delayed release (Slow-Mag)
metoprolol succinate 25 mg capsule 12.5 mg PO DAILY Blood Pressure 11/18/24 03/01/25 History
sprinkle, ext. release 24 hr
psyllium 1 packet PO DAILY Constipation 11/18/24 03/01/25 History
rosuvastatin 20 mg tablet 20 mg PO .DINNER High Cholesterol 11/18/24 03/01/25 History
sennosides 8.6 mg-docusate sodium 2 tab-cap PO BID Constipation 11/18/24 03/01/25 History
50 mg tablet (Senokot-S)
furosemide 20 mg tablet 20 mg PO DAILY #30 tabs 11/24/24 03/01/25 Rx
Calcium 500mg With D3 25mcg 2 tab PO BID Supplement 01/20/25 03/01/25 History
fentanyl 12 mcg/hr transdermal 1 patch transdermal Q72H Pain 01/20/25 03/01/25 History
patch
fentanyl 25 mcg/hr transdermal 1 patch transdermal Q72H Pain 01/20/25 03/01/25 History
patch
hydrocortisone 1 % lotion (Aquanil 1 applic topical DAILY 01/20/25 03/01/25 History
HC) Anti-Inflammatory
escitalopram oxalate 5 mg tablet 5 mg PO HS Mental Health/Anxiety 02/21/25 03/01/25 History
(Lexapro)
sodium phosphates 19 gram-7 118 ml [place] DAILY PRN IF NO BM X4 02/21/25 03/01/25 History
gram/118 mL enema (Fleet Enema) DAYS
levetiracetam 500 mg tablet 500 mg PO BID #60 tabs 02/24/25 03/01/25 Rx
Review of Systems
-
All other systems: Negative unless noted
Physical Exam
Vital Signs
Vital Signs
Temp Pulse Resp BP Pulse Ox
98.2 F 82 18 126/52 97
03/04/25 11:00 03/04/25 16:41 03/04/25 11:00 03/04/25 16:41 03/04/25 11:00
Lab Results
WBC 7.4 10^3/uL (4.8-10.8) 03/04/25 07:52
RBC 3.73 10^6/uL (4.70-6.10) L 03/04/25 07:52
Hgb 10.6 g/dL (13.0-18.0) L 03/04/25 07:52
Hct 33.1 % (39.0-52.0) L 03/04/25 07:52
Plt Count 242 10^3/uL (130-400) 03/04/25 07:52
Sodium 131 mmol/L (135-145) L 03/04/25 07:52
Potassium 4.2 mmol/L (3.5-5.1) 03/04/25 07:52
Chloride 100 mmol/L (98-107) 03/04/25 07:52
Carbon Dioxide 28 mmol/L (22-30) 03/04/25 07:52
BUN 14 mg/dl (9-20) 03/04/25 07:52
Creatinine 0.5 mg/dL (0.7-1.3) L 03/04/25 07:52
eGFR > 60.00 03/04/25 07:52
Glucose 90 mg/dl (70-99) 03/04/25 07:52
Calcium 8.1 mg/dl (8.4-10.2) L 03/04/25 07:52
Albumin 3.0 g/dl (3.5-5.0) L 03/04/25 07:52
Physical Exam
General: Awake, Alert, Oriented, AOx3, No Distress and Nontoxic
HEENT: Anicteric, Conjunctivae Clear, Facial Symmetry and No JVD
Respiratory: Clear, Normal Excursion and Nonlabored Respirations
Cardiac: S1/S2 and Regular Rate/Rhythm
Breast: Deferred by me
Abdomen: Soft, Nontender and Nondistended
Genito-urinary: Clear Urine
Musculoskeletal: No Cyanosis and No Edema (may be trace)
Neuro: Nonfocal/Grossly Intact
Psych: Mood/afflect pleasant, Insight/judgement good and Appropriate
Data Reviewed
-
Labs: Labs Reviewed by me, Discussed with Nurse and Discussed with Patient
Assessment/Plan
-
IMP:
orthostatic hypotension
syncope on recent admit
chronic hyponatremia
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
SVC Syndrome s/p Radiation--Patient receiving Xgeva and Keytruda--Follows with Dr. Sandoval
Right shoulder pain/Chronic Pain with Opioid Dependence
Paroxysmal Atrial Fibrillation
Chronic HFpEF
Essential Hypertension
COPD without Acute Exacerbation
TASIA
Plan:
Recent admit for syncope-felt neurogenic started on Keppra returned back in few days aof d/c with gen symp
noted orthostatic hypotension and symptomatic
now on midodrine and off BB and FR
chr hyponatremia -sodium slow decrease since admit seem multifactorial SIADH+orthostatics+SSRI
cortisol and TSH are fine
agree to hold lasix for orthostasis, Keppra held as well
cotn NS for now and recheck labs in am
h/o CHF but seem euvolemic
pain control
d/w pt and nursing
family not present during visit
[2025-03-04 17:19] LABS: Glucose - Point of Care 160 mg/dl (70-99)
[2025-03-04] MEDS: XALATAN OPHTHALMIC SOLUTION 1 DROP BOTH EYES (21:00)
[2025-03-04] MEDS: LEXAPRO 5 MG PO (21:00)
[2025-03-05] VITALS (9 sets, daily range): BP systolic 103–162; BP diastolic 53–86; PULSE 2–91; BMI 21.6
[2025-03-05] MEDS: ROXICODONE 5 MG PO ×3 (06:16→21:14)
[2025-03-05] MEDS: NSS 1000 IV (06:17)
[2025-03-05 08:07] LABS: Hematocrit 32.2 % (39.0-52.0); Hemoglobin 10.2 g/dL (13.0-18.0); Mean Corp Hgb Conc. 31.7 g/dL (33.0-37.0); Mean Corpuscular Volume 89.9 fL (80.0-94.0); Nucleated Red Blood Cells % 0 % (-); Platelet Count 253 10^3/uL (130-400); Red Cell Dist. Width 17.8 % (11.5-14.5)
[2025-03-05 08:39] LABS: ALT (SGPT) 16 U/L (0-50); AST (SGOT) 19 U/L (17-59); Albumin 2.9 g/dl (3.5-5.0); Alkaline Phosphatase 87 U/L (38-126); Blood Urea Nitrogen 19 mg/dl (9-20); Calcium 8.0 mg/dl (8.4-10.2); Carbon Dioxide 30 mmol/L (22-30); Chloride 100 mmol/L (98-107); Estimated Creatinine Clearance 88 ml/min; Glucose 106 mg/dl (70-99); Magnesium 2.1 mg/dl (1.6-2.3); Potassium 4.4 mmol/L (3.5-5.1); Sodium 133 mmol/L (135-145); Total Protein 5.5 g/dl (6.3-8.2); eGFR > 60.00
[2025-03-05] MEDS: MIRALAX 17 GRAMS PO (08:40)
[2025-03-05] MEDS: OSCAL 500 + D 500 MG PO ×2 (08:41→21:14)
[2025-03-05] MEDS: SENOKOT-S 2 TABLET PO ×2 (08:41→21:14)
[2025-03-05] MEDS: NEURONTIN 300 MG PO ×2 (08:41→21:14)
[2025-03-05] MEDS: ELIQUIS 5 MG PO ×2 (08:42→21:14)
[2025-03-05] MEDS: SIMBRINZA 1%-0.2% OPHTH SUSP 1 DROP RIGHT EYE ×2 (08:44→21:14)
[2025-03-05] MEDS: SPIRIVA RESPIMAT 2.5 MCG 2 PUFF INH (08:53)
[2025-03-05] MEDS: STRIVERDI RESPIMAT 2 PUFF INH (08:53)
--- NOTE | 2025-03-05 10:52 | W.PN.CARDCBS ---
Addendum entered and electronically signed by Luis Balderas MD 03/05/25 19:50:
79-year-old man with history of lung cancer admitted after a syncopal episode following a 2-hour hot shower. Similar episode 1 month ago
PMH/PSH: Non-small cell lung cancer, with weight loss, on Keytruda with stable bony metastatic disease, paroxysmal atrial fibrillation, HFpEF, history of SVC syndrome, chronic pain, SIADH, hypertension, hyperlipidemia, COPD recently started on
Keppra for partial complex seizure, now discontinued, orthostasis appendectomy, herniorrhaphy, right shoulder, carpal tunnel release left, cataracts
PMH: Apixaban 5 twice daily, Simbrinza eyedrops, Lexapro, fentanyl patch, Neurontin, MiraLAX, rosuvastatin, Senokot, Xalatan, Spiriva, Striverdi, calcium, midodrine just added 5 3 times daily
120/59, pulse 61, respiratory rate 12, afebrile, weight is 62.6 kg, not orthostatic as of 3 AM, complains of pain when touched, son informs me of severe left shoulder pain, also complains of sacral discomfort from lying, limited lung exam given
relative immobility, relatively clear, or regular rate and rhythm, no obvious murmurs, chronically ill and cachectic, no edema, son at bedside
Hemoglobin 10.2, BUN and creatinine 19 and 0.5, potassium 4.4, sodium 133, normal TSH, cortisol 28.7
Telemetry: Sinus rhythm
Impression:
Syncope, likely vagal mechanism
Orthostasis
Metastatic non-small cell carcinoma of the lung on Keytruda
History of HFpEF
Cachexia
COPD
History of SVC syndrome
Ascending aorta 4.3 cm
History of alcohol use
Plan:
Syncope likely was orthostatic/vagal. At present he seems relatively compensated.
Furosemide currently on hold, metoprolol has been stopped. Family members had concerns regarding Keppra. This has been discontinued.
Continue anticoagulation.
Would not discharge patient on a standing dose of furosemide. Family members have been advised that furosemide 20 mg could be used as needed weight gain, edema and dyspnea.
Would not restart metoprolol.
Okay to proceed with discharge planning.
Original Note:
Today's Communication / Plan
-
-cont midodrine
watch weights/symptoms of vol overload off Lasix.
Impression / Plan
-
PCP: Dr. Jimenez Fitzpatrick
Primary Economic Developer: Dr. Dempsey
Assessment:
Admitted with orthostatic hypotension
Syncope�vasovagal mechanism
Cachexia
Diminished functional status
Presentation with dyspnea, edema 11/17/24
Chronic HFpEF�he appears volume deplete
Paroxysmal atrial fibrillation
Chronic OAC with Eliquis
Hypertension
Hyperlipidemia
Bifascicular block
COPD/emphysema
Metastatic NSCLC s/p XRT, currently on Keytruda
SVC syndrome, currently receiving radiation�improvement after radiation of upper extremity edema
Thyroid nodules
BPH
Tobacco abuse
Thoracic aortic aneurysm 4.[address] in [address] of chest
Diverticulitis with diverticular abscess with colon resection
Chronic neck and back pain
Former alcoholic
DNR code status
ECHO 11/18/24: EF 55-60%, normal RWM, mild TR, trivial pericardial effusion, dilated aortic root
Plan:
-Pt w/ change in volume status/functional status over past 2 months in setting of progression of lung cancer. Having weight loss and cachexia. Presented following syncopal episode after taking 2 hr long hot shower. Had orthostatic BPs on
presentation and given IV fluid bolus. Episode thought to be vasovagal/orthostatic in origin. Lasix and Metoprolol stopped and started on Midodrine 03/04.
- BPs 120s-130s/50-60s.
-pt denies lightheadedness, tells me he was walked earlier without symptoms
-remains off Lasix and Metoprolol
-weight starting to increase, up 11 lbs since admission
-denies SOB, trace LE edema which he reports is his baseline
-ok to cont Midodrine as long as he does not become hypertensvie.
- Would avoid any other hypertensive medications
-telemetry personally reviewed, NSR 70-80s
- Defer on Keppra use although it appears to be contributing to his delirium and would agree to stop as long as internal medicine and/or neurology feel that way
- If he has continued falls we may need to abandon Eliquis use although given his functional status it would be preferable to avoid any further neurologic event and would continue at this time
- We will follow with you
Progress Note - Economic Developer
Subjective
Date of Service: March 05, 2025
no LH, dizziness
no SOB
wt increasing
Objective
Labs:
03/05/25 07:13
03/05/25 07:13
Labs
Hgb 10.2 g/dL (13.0-18.0) L 03/05/25 07:13
Hct 32.2 % (39.0-52.0) L 03/05/25 07:13
Plt Count 253 10^3/uL (130-400) 03/05/25 07:13
Sodium 133 mmol/L (135-145) L 03/05/25 07:13
Potassium 4.4 mmol/L (3.5-5.1) 03/05/25 07:13
BUN 19 mg/dl (9-20) 03/05/25 07:13
Creatinine 0.5 mg/dL (0.7-1.3) L 03/05/25 07:13
Glucose 106 mg/dl (70-99) H 03/05/25 07:13
Vital Signs and I&O:
Vital Signs
Temp Pulse Resp BP Pulse Ox
98.6 F 77 16 121/64 93
03/05/25 07:25 03/05/25 08:54 03/05/25 08:54 03/05/25 07:25 03/05/25 08:54
Vital Signs
Temp Pulse Resp BP Pulse Ox
98.6 F 77 16 121/64 93
03/05/25 07:25 03/05/25 08:54 03/05/25 08:54 03/05/25 07:25 03/05/25 08:54
Intake & Output
03/03/25 03/04/25 03/05/25 03/06/25
06:59 06:59 06:59 06:59
Intake Total 880 / 880 240 / 240 1620 / 1620
Output Total 750 / 750 350 / 350 2800 / 2800
Balance 130 / 130 -110 / -110 -1180 / -1180
Physical Exam
Physical Exam
GEN: No distress, awake, Ox3
HEENT: supple, anicteric, mmm
LUNGS: CTA, no wheezes/rales
CV: Reg, S1/S2, no murmur
ABD: soft, BS+, NT/ND
EXT: trace edema
NEURO: Gross non-focal
SKIN: No rash
--- NOTE | 2025-03-05 11:57 | W.PN.HOSP.TC ---
Addendum entered and electronically signed by Kimberly Ku MD 03/05/25 16:06:
I saw and evaluated the patient independently. I reviewed the resident�s note and agree with findings and plan as documented by Dr. Uriostegui.
GENERAL: chronically ill appearing male, cachectic in no apparent distress
HEENT: NC/AT
HEART: regular rate and rhythm, +S1, +S2
LUNGS : clear to auscultation bilaterally
ABDOM: soft, nontender, nondistended, + bowel sounds
EXT: no cyanosis, clubbing-- trace edema--posterior right shoulder pain
NEUROLOGIC: grossly intact
: condom cath
Generalized weakness, fatigue, anorexia, confusion, malaise--agree, likely multifactorial--medication effects (Keppra intolerance which was started for apparent seizures last admission but EEG was negative), underlying malignancy and sequela,
deconditioning-- but is orthostatic by BP drop and symptomatic, TSH and cortisol WNL--cont midodrine, will need to add teds stockings and abdominal binder--Keppra stopped, level (which was sent out on admission) is NOT elevated (low normal range in
fact) and therefore shows NO EVIDENCE of keppra toxicity--PT/OT rec SNF--recommended last admission but pt refused--pt 03/04 inpt after persistent positive orthostatic VS--apprec renal/cards
Hyponatremia--sodium 135 on admission but dropping to 131, back to 133--apprec renal input
Recent Episodic unresponsiveness (last admission)-- possible syncope versus seizure--History of seizure-like episodes--was on Keppra which was stopped, level pending--Recent episode occurred 2 hours after prolonged hot shower, possibly heat induced
syncope with vasodilation or seizure trigger--orthostatic by BP drop, holding toprol and lasix, apprec cards--ECHO WNL--EEG 02/23/2025�The study was suggestive of diffuse cortical dysfunction with no focal abnormality. No symptoms were recorded
Mild asymptomatic hyponatremia--appears chronic--likely SIADH and reset osmostat from chronic shoulder pain, possibly paraneoplastic from lung cancer--follow--fluid restrict
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 Sandoval
Right shoulder pain--Continue pain control as needed with Tylenol, oxycodone as needed, fentanyl patch transdermal--PT/OT is following--chronic x 5 years
Chronic Pain with Opioid Dependence--Related to bone metastasis and cancer related pain--Continue fentanyl patch, oxycodone and gabapentin as prior to admission--narcotic meds could be contributing to orthostasis as well
Paroxysmal Atrial Fibrillation---Toprol to be held due to syncope, bradycardia, hypotension-Continue Eliquis
Chronic HFpEF--Most recent echocardiogram shows ejection fraction of 55 to 60%-Weight is decreased from baseline according to family--Hold Lasix acutely due to syncope, bradycardia, hypotension--Follow orthostatic BPs--may need midodrine--await
cards input
Essential Hypertension--meds asa able
COPD without Acute Exacerbation--Stable-- Continue umeclidinium-vilanterol
TASIA--Continue nightly PAP therapy--follow-up with Pulm as an outpatient.
DVT Proph-- On Eliquis
Code Status-- DNR
Original Note:
Today's Communication/Plan
-
- continue to trend cmp
- continue to check orthostatic vitals
Assessment / Plan
Assessment / Plan
Generalized weakness, fatigue, anorexia, confusion, malaise
- Patient was admitted for similar presentation on last admission
-Likely multifactorial in the setting of medication effects VS underlying malignancy VS deconditioning
-PT/OT consulted and they recc skilled rehab for his weakness and deconditioning
- SNF was the patient at the last admission, but patient's family declined.
- Pts level of care changed to inpatient care as second set of orthostatic vitals positive.
- Today orthostatic vitals are negative. supine 139/84, sitting 144/78, standing 162/86 mmhg.
- Patient does not tolerate Kepra, so we will discontinue it. Kepra level has resulted and it is therapeutic at a level of 12.2 and NOT elevated.
Episodic unresponsiveness possible syncope versus seizure:
-History of seizure-like episodes on levetiracetam, level pending
-Recent episode occurred 2 hours after prolonged hot shower, possibly heat induced syncope or seizure trigger
-orthostatics are positive
-EEG 02/23/2025.�The study was suggestive of diffuse cortical dysfunction with no focal abnormality. No symptoms were recorded
-Echocardiogram 02/23-normal left ventricular size and function. Normal regional wall motion. Left ventricular ejection fraction 55-60%
- Previous echo showed a ejection fraction of 55-60%
-PT/OT for deconditioning and weakness
- continue midodrine 5 mg to help maintain blood pressures on different positional changes.
- will hold Toprol, Lasix as they can decrease blood pressure and cause further exacerbate syncope.
- Tsh is normal. Morning cortisol is slightly elevated at 28.
Mild asymptomatic hyponatremia:
- Creatinine is 0.5 with normal potassium levels
- Sodium level is 133 trending up from 131 yesterday, probably siadh from stage Iv lung cancer
- continue to trend CMP.
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
-SVC Syndrome s/p Radiation
-Patient receiving Xgeva and Keytruda
-Follows with Dr. Sandoval oncologist
Right shoulder pain
-Continue pain control as needed with oxycodone as needed, fentanyl patch transdermal
-PT/OT is following
- Tylenol was held as per patients wish regarding elevated LFT's, however upon chart review for this admission, there are no elevated LFTs.
Chronic Pain with Opioid Dependence
-Related to bone metastasis and cancer related pain
-Continue fentanyl patch, oxycodone and gabapentin as prior to admission
Paroxysmal Atrial Fibrillation:
-Toprol to be held due to syncope, bradycardia, hypotension
-Continue Eliquis
Chronic HFpEF
-Most recent echocardiogram shows ejection fraction of 55 to 60%
-Weight is decreased from baseline according to family.
-Hold Lasix acutely due to syncope bradycardia hypotension
-Follow orthostatic BPs.
SIADH
-Sodium level stable
-Continue fluid restriction
Essential Hypertension
-Blood pressures 120/57 and well-controlled
COPD without Acute Exacerbation
-Stable. Continue umeclidinium-vilanterol
TASIA
-Continue nightly PAP therapy.
-follow-up with Pulm as an outpatient.
DVT Prophylaxis: On Eliquis
Code Status: DNR
Anticipated Discharge: 24 - 48 hours
Subjective/Interval History
-
Date of Service: March 05, 2025
No overnight events
No acute medical complaints.
Objective Data
-
Labs:
Laboratory Results
03/05/25
07:13
WBC 7.9
Hgb 10.2 L
Hct 32.2 L
Plt Count 253
Sodium 133 L
Potassium 4.4
Chloride 100
Carbon Dioxide 30
BUN 19
Creatinine 0.5 L
Glucose 106 H
Calcium 8.0 L
Total Bilirubin 0.5
AST 19
ALT 16
Alkaline Phosphatase 87
Vital Signs:
Vital Signs
Temp Pulse Resp BP Pulse Ox
98.6 F 77 16 121/64 93
03/05/25 07:25 03/05/25 08:54 03/05/25 08:54 03/05/25 07:25 03/05/25 08:54
I&O
03/04/25 03/05/25 03/06/25
06:59 06:59 06:59
Intake Total 240 / 240 1620 / 1620
Output Total 350 / 350 2800 / 2800
Balance -110 / -110 -1180 / -1180
Review of Systems
-
All other systems: Reviewed and negative (Except as documented)
Musculoskeletal: Reports Muscle Pain (Right shoulder pain around the right scapular area)
Physical Exam
-
General: Conversant, Appears Chronically Ill and Cachectic
HEENT: Normocephalic, Atraumatic and PERRLA
Respiratory: Non Labored Respirations
Cardiac: Regular Rhythm and S1/S2
GI: Soft, Nondistended and Normal Bowel Sounds
Musculoskeletal: No Edema and Other (Right shoulder pain, limited mobility due to pain)
Skin: Warm
Neuro: Awake
Psych: Calm
Data Reviewed
-
Labs: Labs Reviewed by me and Discussed with Physician
--- NOTE | 2025-03-05 14:14 | CM ---
Patient seen at bedside with physician on . Patient family not present. Patient referral pending to [facility], [facility] spoke with admissions and update provided requestions. CM will continue to follow for discharge planning needs.
Plan;SNF; [facility] patient first choice.
--- NOTE | 2025-03-05 16:46 | W.PN.NEPH.PH ---
Addendum entered and electronically signed by Sima Toledo MD 03/05/25 16:53:
hypoalbuminemia-check U PCR
Original Note:
Today's Communication / Plan
-
wean off IVF if possible tonight
Assessment/Plan
-
IMP:
orthostatic hypotension
syncope on recent admit
chronic hyponatremia
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
SVC Syndrome s/p Radiation--Patient receiving Xgeva and Keytruda--Follows with Dr. Sandoval
Right shoulder pain/Chronic Pain with Opioid Dependence
Paroxysmal Atrial Fibrillation
Chronic HFpEF
Essential Hypertension
COPD without Acute Exacerbation
TASIA
Plan:
Recent admit for syncope-felt neurogenic started on Keppra returned back in few days of d/c with gen symp
noted orthostatic hypotension and symptomatic
now on midodrine and off BB, lasix and FR
chr hyponatremia -multifactorial SIADH+orthostatics+SSRI
sodium improving trend with IVF, wean off tonight
cortisol and TSH are fine
holding lasix for orthostasis, Keppra held as well
h/o CHF but seem euvolemic
orthostatics are better this am but evening vitals +ve, cont on midodrine
alb is low, encourage solute intake
pain control
d/w pt and son at bedside
-
-
Date of Service: March 05, 2025
CC / HPI / ROS
-
Chief Complaint:
Shortness of breath
History of Present Illness:
Patient with history of lung cancer CHF sodium better at 133
ortho neg this am
Review of Systems:
on RA
No chest pain or shortness of breath
right shoulder pain is chronic
appetite is improving
Labs
-
Labs:
WBC 7.9 10^3/uL (4.8-10.8) 03/05/25 07:13
RBC 3.58 10^6/uL (4.70-6.10) L 03/05/25 07:13
Hgb 10.2 g/dL (13.0-18.0) L 03/05/25 07:13
Hct 32.2 % (39.0-52.0) L 03/05/25 07:13
Plt Count 253 10^3/uL (130-400) 03/05/25 07:13
Sodium 133 mmol/L (135-145) L 03/05/25 07:13
Potassium 4.4 mmol/L (3.5-5.1) 03/05/25 07:13
Chloride 100 mmol/L (98-107) 03/05/25 07:13
Carbon Dioxide 30 mmol/L (22-30) 03/05/25 07:13
BUN 19 mg/dl (9-20) 03/05/25 07:13
Creatinine 0.5 mg/dL (0.7-1.3) L 03/05/25 07:13
eGFR > 60.00 03/05/25 07:13
Glucose 106 mg/dl (70-99) H 03/05/25 07:13
Calcium 8.0 mg/dl (8.4-10.2) L 03/05/25 07:13
Albumin 2.9 g/dl (3.5-5.0) L 03/05/25 07:13
Physical Exam
-
Vital Signs:
Vital Signs
Temp Pulse Resp BP Pulse Ox
98.6 F 70 18 129/54 94
03/05/25 15:17 03/05/25 15:17 03/05/25 15:17 03/05/25 15:17 03/05/25 15:17
Cardiovascular:: Regular rate and rhythm
Respiratory:: Bilateral: CTA (anteriorly)
Lung Excursion:: Normal
Abdomen:: Nontender and Soft
Extremity Edema:: None: Bilateral:
Quarles Catheter: No
[2025-03-05] MEDS: CRESTOR 20 MG PO (17:22)
[2025-03-05] MEDS: XALATAN OPHTHALMIC SOLUTION 1 DROP BOTH EYES (21:14)
[2025-03-05] MEDS: LEXAPRO 5 MG PO (21:14)
[2025-03-06] VITALS (8 sets, daily range): BP systolic 92–143; BP diastolic 57–70; PULSE 2–103; O2SAT 95; BMI 21.4
[2025-03-06] MEDS: ROXICODONE 5 MG PO ×2 (03:38→08:32)
[2025-03-06] MEDS: STRIVERDI RESPIMAT 2 PUFF INH (08:19)
[2025-03-06] MEDS: SPIRIVA RESPIMAT 2.5 MCG 2 PUFF INH (08:20)
[2025-03-06] MEDS: NEURONTIN 300 MG PO ×2 (08:32→19:43)
[2025-03-06] MEDS: OSCAL 500 + D 500 MG PO ×2 (08:32→19:44)
[2025-03-06] MEDS: SENOKOT-S 2 TABLET PO ×2 (08:33→19:44)
[2025-03-06] MEDS: ELIQUIS 5 MG PO ×2 (08:33→19:43)
[2025-03-06] MEDS: SIMBRINZA 1%-0.2% OPHTH SUSP 1 DROP RIGHT EYE ×2 (08:34→19:44)
[2025-03-06] MEDS: MIRALAX 17 GRAMS PO (08:34)
[2025-03-06 08:47] LABS: Hematocrit 32.0 % (39.0-52.0); Hemoglobin 10.2 g/dL (13.0-18.0); Mean Corp Hgb Conc. 31.9 g/dL (33.0-37.0); Mean Corpuscular Volume 89.1 fL (80.0-94.0); Nucleated Red Blood Cells % 0 % (-); Platelet Count 237 10^3/uL (130-400); Red Cell Dist. Width 17.7 % (11.5-14.5)
[2025-03-06 09:09] LABS: ALT (SGPT) 17 U/L (0-50); AST (SGOT) 23 U/L (17-59); Albumin 2.8 g/dl (3.5-5.0); Alkaline Phosphatase 89 U/L (38-126); Blood Urea Nitrogen 15 mg/dl (9-20); Calcium 7.7 mg/dl (8.4-10.2); Carbon Dioxide 28 mmol/L (22-30); Chloride 100 mmol/L (98-107); Estimated Creatinine Clearance 87 ml/min; Glucose 111 mg/dl (70-99); Potassium 4.3 mmol/L (3.5-5.1); Sodium 131 mmol/L (135-145); Total Protein 5.2 g/dl (6.3-8.2); eGFR > 60.00
--- NOTE | 2025-03-06 12:18 | W.PN.HOSP.TC ---
Addendum entered and electronically signed by Kimberly Ku MD 03/06/25 20:35:
I saw and evaluated the patient independently. I reviewed the resident�s note and agree with findings and plan as documented by Dr. Uriostegui.
GENERAL: chronically ill appearing male, cachectic in no apparent distress
HEENT: NC/AT
HEART: regular rate and rhythm, +S1, +S2
LUNGS : clear to auscultation bilaterally
ABDOM: soft, nontender, nondistended, + bowel sounds
EXT: no cyanosis, clubbing-- trace edema--posterior right shoulder pain
NEUROLOGIC: grossly intact
: condom cath
Generalized weakness, fatigue, anorexia, confusion, malaise--agree, likely multifactorial--medication effects (Keppra intolerance which was started for apparent seizures last admission but EEG was negative), underlying malignancy and sequela,
deconditioning-- but is orthostatic by BP drop and symptomatic, TSH and cortisol WNL--cont midodrine, cards recommended increase to 7.5 mg BID, added teds stockings and abdominal binder but at time of my visit has not had them on (do not believe
they were given to the patient)--Keppra stopped, level (which was sent out on admission) is NOT elevated (low normal range in fact) and therefore shows NO EVIDENCE of keppra toxicity--PT/OT rec SNF--recommended last admission but pt refused (told us
he wanted to see how he did at home)--pt 03/04 inpt after persistent positive orthostatic VS--apprec renal/cards--asked Dr. Lance from [facility] to [facility] for acute rehab--he feels pt will NOT tolerate 3 hours per day of therapy and rec SNF--in
addition he noticed bilateral hand tremor, stiffness to his gait, shuffling feet, falling backwards and orthostasis all concerning for possible Parkinson's/Parkinsonian features--consideration of Sinemet trial to see if symptoms improve
Hyponatremia--sodium 135 on admission but dropping to 131, back to 133--apprec renal input
Recent Episodic unresponsiveness (last admission)-- possible syncope versus seizure--History of seizure-like episodes--was on Keppra which was stopped, level pending--Recent episode occurred 2 hours after prolonged hot shower, possibly heat induced
syncope with vasodilation or seizure trigger--orthostatic by BP drop, holding toprol and lasix, apprec cards--ECHO WNL--EEG 02/23/2025�The study was suggestive of diffuse cortical dysfunction with no focal abnormality. No symptoms were recorded
Mild asymptomatic hyponatremia--appears chronic--likely SIADH and reset osmostat from chronic shoulder pain, possibly paraneoplastic from lung cancer--follow--fluid restrict--apprec renal input
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 Sandoval--unclear prognosis, follow up as outpt
Right shoulder pain--Continue pain control as needed with Tylenol, oxycodone as needed, fentanyl patch transdermal--PT/OT is following--chronic x 5 years
Chronic Pain with Opioid Dependence--Related to bone metastasis and cancer related pain--Continue fentanyl patch, oxycodone and gabapentin as prior to admission--narcotic meds could be contributing to orthostasis as well
Paroxysmal Atrial Fibrillation---Toprol to be held due to syncope, bradycardia, hypotension-Continue Eliquis
Chronic HFpEF--Most recent echocardiogram shows ejection fraction of 55 to 60%-Weight is decreased from baseline according to family--Hold Lasix acutely due to syncope, bradycardia, hypotension--Follow orthostatic BPs--may need midodrine--apprec
cards input
Essential Hypertension--meds as able
COPD without Acute Exacerbation--Stable-- Continue umeclidinium-vilanterol
TASIA--Continue nightly PAP therapy--follow-up with Pulm as an outpatient.
DVT Proph-- On Eliquis
Code Status-- DNR
since not candidate for [facility], looking at SNF
Original Note:
Today's Communication/Plan
-
- work with case management on finding a rehab facility
- trend orthostatics
Assessment / Plan
Assessment / Plan
had discussion with family in room regarding medications, medical concerns, different options upon discharge including rehab and snf's.
Generalized weakness, fatigue, anorexia, confusion, malaise
- Patient was admitted for similar presentation on last admission
-Likely multifactorial in the setting of medication effects VS underlying malignancy VS deconditioning
-PT/OT consulted and they recc skilled rehab for his weakness and deconditioning
- SNF was the patient at the last admission, but patient's family declined.
- Pts level of care changed to inpatient care as second set of orthostatic vitals positive.
- Today orthostatic vitals are negative. supine 131/61, sitting 113/60, standing 92/58 mmhg.
- Patient does not tolerate Kepra, so we will discontinue it. Kepra level has resulted and it is therapeutic at a level of 12.2 and NOT elevated.
- Consulted PMNR to help further evaluate patients weakness and check criteria for [facility].
Episodic unresponsiveness possible syncope versus seizure:
-History of seizure-like episodes on levetiracetam, level pending
-Recent episode occurred 2 hours after prolonged hot shower, possibly heat induced syncope or seizure trigger
-orthostatics are positive
-EEG 02/23/2025.�The study was suggestive of diffuse cortical dysfunction with no focal abnormality. No symptoms were recorded
-Echocardiogram 02/23-normal left ventricular size and function. Normal regional wall motion. Left ventricular ejection fraction 55-60%
- Previous echo showed a ejection fraction of 55-60%
- cardiology is following
-PT/OT for deconditioning and weakness
- Increased midodrine to 7.5 mg BID to help maintain blood pressures on different positional changes.
- will hold Toprol, Lasix as they can decrease blood pressure and cause further exacerbate syncope.
- Tsh is normal. Morning cortisol is slightly elevated at 28.
- Ordered teds stockings and an abdominal binder as well to help keep the pressures normal on positional change.
Mild asymptomatic hyponatremia:
- Creatinine is 0.5 with normal potassium levels
- Sodium level is 133 trending up from 131 yesterday, probably siadh from stage Iv lung cancer
- continue to trend CMP.
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
-SVC Syndrome s/p Radiation
-Patient receiving Xgeva and Keytruda
-Follows with Dr. Sandoval oncologist
Right shoulder pain
-Continue pain control as needed with oxycodone as needed, will add in lidocaine transdermal patch
-PT/OT is following
- Tylenol was held as per patients wish regarding elevated LFT's, however upon chart review for this admission, there are no elevated LFTs.
Chronic Pain with Opioid Dependence
-Related to bone metastasis and cancer related pain
-Continue fentanyl patch, oxycodone as prior to admission
Paroxysmal Atrial Fibrillation:
-Toprol to be held due to syncope, bradycardia, hypotension
-Continue Eliquis
Chronic HFpEF
-Most recent echocardiogram shows ejection fraction of 55 to 60%
-Weight is decreased from baseline according to family.
-Hold Lasix acutely due to syncope bradycardia hypotension
-Follow orthostatic BPs.
SIADH
-Sodium level stable
-Continue fluid restriction
Essential Hypertension
-Blood pressures 120/57 and well-controlled
COPD without Acute Exacerbation
-Stable. Continue umeclidinium-vilanterol
TASIA
-Continue nightly PAP therapy.
-follow-up with Pulm as an outpatient.
DVT Prophylaxis: On Eliquis
Code Status: DNR
Anticipated Discharge: 24 - 48 hours
Subjective/Interval History
-
Date of Service: March 06, 2025
No overnight events
Patient complaining of right scapular pain in right shoulder. Has had chronic pain in this area for 5 years.
Objective Data
-
Labs:
Laboratory Results
03/06/25
08:40
WBC 7.6
Hgb 10.2 L
Hct 32.0 L
Plt Count 237
Sodium 131 L
Potassium 4.3
Chloride 100
Carbon Dioxide 28
BUN 15
Creatinine 0.5 L
Glucose 111 H
Calcium 7.7 L
Total Bilirubin 0.6
AST 23
ALT 17
Alkaline Phosphatase 89
Vital Signs:
Vital Signs
Temp Pulse Resp BP Pulse Ox
97.8 F 95 20 118/59 94
03/06/25 11:32 03/06/25 11:32 03/06/25 11:32 03/06/25 11:32 03/06/25 11:32
I&O
03/05/25 03/06/25 03/07/25
06:59 06:59 06:59
Intake Total 1620 / 1620 480 / 480
Output Total 2800 / 2800 1200 / 1200
Balance -1180 / -1180 -720 / -720
Review of Systems
-
All other systems: Reviewed and negative (Except as documented)
Musculoskeletal: Reports Muscle Pain (Right shoulder pain around the right scapular area)
Physical Exam
-
General: Conversant, Appears Chronically Ill and Cachectic
HEENT: Normocephalic, Atraumatic and PERRLA
Respiratory: Non Labored Respirations
Cardiac: Regular Rhythm and S1/S2
GI: Soft, Nondistended and Normal Bowel Sounds
Musculoskeletal: No Edema and Other (Right shoulder pain, limited mobility due to pain)
Skin: Warm
Neuro: Awake
Psych: Calm
Data Reviewed
-
Labs: Labs Reviewed by me and Discussed with Physician
--- NOTE | 2025-03-06 14:04 | W.PN.NEPH.PH ---
Today's Communication / Plan
-
Follow-up electrolytes
Maintain fluid restriction
Maintain midodrine for blood pressure support
Assessment/Plan
-
IMP:
orthostatic hypotension
syncope on recent admit
chronic hyponatremia
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
SVC Syndrome s/p Radiation--Patient receiving Xgeva and Keytruda--Follows with Dr. Sandoval
Right shoulder pain/Chronic Pain with Opioid Dependence
Paroxysmal Atrial Fibrillation
Chronic HFpEF
Essential Hypertension
COPD without Acute Exacerbation
TASIA
Plan:
Recent admit for syncope-felt neurogenic started on Keppra returned back in few days of d/c with gen symp
noted orthostatic hypotension and symptomatic
now on midodrine and off BB, lasix and FR sodium at 131
chr hyponatremia -multifactorial SIADH+orthostatics+SSRI
sodium improving trend with IVF, wean off tonight
cortisol and TSH are fine
holding lasix for orthostasis, Keppra held as well
h/o CHF but seem euvolemic
orthostatics are better this am but evening vitals +ve, cont on midodrine
alb is low, encourage solute intake
pain control
-
-
Date of Service: March 06, 2025
CC / HPI / ROS
-
Chief Complaint:
Shortness of breath
History of Present Illness:
Patient with history of lung cancer CHF sodium better at 131
ortho neg this am
Maintains on midodrine for orthostasis
Review of Systems:
on RA
No chest pain or shortness of breath
right shoulder pain is chronic
appetite is improving
Labs
-
Labs:
WBC 7.6 10^3/uL (4.8-10.8) 03/06/25 08:40
RBC 3.59 10^6/uL (4.70-6.10) L 03/06/25 08:40
Hgb 10.2 g/dL (13.0-18.0) L 03/06/25 08:40
Hct 32.0 % (39.0-52.0) L 03/06/25 08:40
Plt Count 237 10^3/uL (130-400) 03/06/25 08:40
Sodium 131 mmol/L (135-145) L 03/06/25 08:40
Potassium 4.3 mmol/L (3.5-5.1) 03/06/25 08:40
Chloride 100 mmol/L (98-107) 03/06/25 08:40
Carbon Dioxide 28 mmol/L (22-30) 03/06/25 08:40
BUN 15 mg/dl (9-20) 03/06/25 08:40
Creatinine 0.5 mg/dL (0.7-1.3) L 03/06/25 08:40
eGFR > 60.00 03/06/25 08:40
Glucose 111 mg/dl (70-99) H 03/06/25 08:40
Calcium 7.7 mg/dl (8.4-10.2) L 03/06/25 08:40
Albumin 2.8 g/dl (3.5-5.0) L 03/06/25 08:40
Physical Exam
-
Vital Signs:
Vital Signs
Temp Pulse Resp BP Pulse Ox
97.8 F 95 20 118/59 94
03/06/25 11:32 03/06/25 11:32 03/06/25 11:32 03/06/25 11:32 03/06/25 11:32
Cardiovascular:: Regular rate and rhythm
Extremity Edema:: None: Bilateral:
Quarles Catheter: No
[2025-03-06] MEDS: LIDOCAINE 4% PATCH 1 PATCH TOPICAL (14:41)
--- NOTE | 2025-03-06 15:56 | CM ---
Patient seen at bedside with physicians on . Patient family would like to have patient assessed by Dr. Lance and they would love to have [facility] if appropriate. [facility] unable to accept due to no male beds, [facility] also no beds. Patient
awaiting PM&R assessment and referral to [facility]. Patient family agreed to referral to [facility] as back up plan. CM will continue to follow for discharge planning needs.
Plan; SNF vs [facility]
--- NOTE | 2025-03-06 16:30 | CON.MD ---
Consultation - Medical
-
Chief Complaint:�Orthostasis and debility
�
History of Present Illness:�79-year-old left-handed male with PMH (as below) presented to [facility] on 03/01/2025 with generalized weakness, fatigue, anorexia, confusion, and malaise. He had a syncopal event at home with questionable
seizure-like activity. Concern for unresponsive episode versus possible seizure or syncope. Patient found to be orthostatic. Toprol and Lasix held. Keppra also held as possible side effect. Developed some mild hyponatremia and seen by
nephrology. Patient notes severe right shoulder pain for which she had surgery many years ago and felt better. Then it got worse and he was diagnosed with cancer. It has been on and off with pain but significantly limiting more recently. He
notes getting pain medication from pain management. He has seen orthopedics again and his understanding is that he has arthritis. No surgical or other intervention was suggested. He has not seen palliative care to help with the pain management.
He has a problem with his walking. At times he notes that he falls backwards, he was sitting on the bed prior to coming to the hospital and fell backwards. He denies any actual seizure activity. He has had shaking in the hands before.
�
Past Medical History:�Stage IV non-small lung cancer with bone mets, SVC syndrome, chronic pain with opioid dependence, paroxysmal atrial fibrillation, chronic HFpEF, SIADH, HTN, HLD, COPD, BPH, opioid-induced constipation
Procedure History:�Appendectomy, hernia repair, right shoulder surgery, left wrist carpectomy, bilateral cataracts
Family History:�None pertinent
�
Social History:�
Functional Level Premorbidly: Ambulates with a rolling walker at baseline. Family assisting with mobility and ADLs as needed.
Functional Level Currently:�Max assist bed mobility and transfers. Mod assist of 2 ambulating 5 feet with rolling walker. Physical therapy no 03/04/2025 notes patient being able to ambulate 15 feet with 2 turns with min assist for contact-guard.
Patient is a slow pace and shuffles his feet but steady for short distance with fatiguing quickly.
�
Tobacco:�Former
Alcohol:�Denies�
Drug use:�Denies�
�
Lives with:� and son
24-hour assistance available:�Yes
Number of floors:�1
# steps to enter:�2
�
�
Allergies:�
Allergy/AdvReac Type Severity Reaction Status Date / Time
levetiracetam (From [facility]) AdvReac Severe Fatigue Verified 03/04/25 09:11
acetaminophen AdvReac Intermediate LFT Verified 03/04/25 09:11
abnormalities
Hayfever Allergy Sneezing, Uncoded 03/04/25 09:11
watery/itchy
eyes,
stuffy nose
�
Review of Systems:�
Constitutional: (x) abNormal _fatigue
Eye: (x) Normal _
Ear/Nose/Throat: (x) Normal _
Respiratory: (x) Normal _
Cardiovascular: (x) Normal _
Gastrointestinal: (x) Normal _
Genitourinary: (x) Normal _
Musculoskeletal: (x) abNormal _severe right shoulder pain
Integumentary: (x) Normal _
Neurologic: (x) Normal _
Psychiatric: (x) Normal _
Endocrine: (x) Normal _
Hematologic/Lymphatic: (x) Normal _
Allergic/Immunologic: (x) Normal _
�
Medications:�
Active Current Visit Medication List
Category Date Time Status
Albuterol Nebs [Ventolin Nebules] Med 03/01/25 02:08 Active
2.5 mg INH R Q4HPRN PRN
Apixaban [Eliquis] Med 03/01/25 08:00 Active
5 mg PO BID
Brinzolamide/Brimonidine Tart [Simbrinza 1%-0.2% Ophth Med 03/01/25 08:00 Active
Susp]
1 drop RIGHT EYE BID
Calcium Carbonate/Vitamin D3 [Oscal 500 + D] Med 03/01/25 08:00 Active
500 mg PO BID
Docusate W/Senna [Senokot-S] Med 03/01/25 08:00 Active
2 tablet PO BID
Escitalopram Oxalate [Lexapro] Med 03/01/25 22:00 Active
5 mg PO HS
FentaNYL 12 MCG/HR PATCH [Duragesic 12 Mcg/Hr Patch] Med 03/04/25 01:00 Active
1 patch TRANSDERM Q72H
FentaNYL 25 MCG/HR PATCH [Duragesic 25 Mcg/Hr Patch] Med 03/04/25 01:00 Active
1 patch TRANSDERM Q72H
Flush (0.9% Sodium Chloride) [Flush (Nss)] Med 03/01/25 01:00 Active
See Dose Instructions IV PER PROTOCOL
Gabapentin [Neurontin] Med 03/01/25 08:00 Active
300 mg PO BID
Latanoprost [Xalatan Ophthalmic Solution] Med 03/01/25 22:00 Active
1 drop BOTH EYES HS
Lidocaine [Lidocaine 4% Patch] Med 03/06/25 12:30 Active
1 patch TOPICAL DAILY
Midodrine [ProAmatine] Med 03/06/25 18:00 Active
2.5 mg PO BID@0800,1800
Midodrine [ProAmatine] Med 03/06/25 18:00 Active
5 mg PO BID@0800,1800
Olodaterol HCl [Striverdi Respimat] Med 03/01/25 08:00 Active
2 puff INH R DAILY
Oxycodone [Roxicodone] Med 03/01/25 02:08 Active
5 mg PO Q4HPRN PRN severe pain
Polyethylene Glycol Powder [Miralax] Med 03/01/25 08:00 Active
17 grams PO DAILY
REMOVE fentaNYL PATCH [Remove Duragesic Patch] Med 03/07/25 01:00 Active
1 patch REMOVE Q72H
REMOVE fentaNYL PATCH [Remove Duragesic Patch] Med 03/07/25 01:00 Active
1 patch REMOVE Q72H
Remove Patch [Remove Lidocaine Patch] Med 03/06/25 20:00 Active
1 patch REMOVE DAILY@1999
Rosuvastatin Calcium [Crestor] Med 03/01/25 18:00 Active
20 mg PO QPM
Tiotropium [place] 2.5 Mcg [Spiriva Respimat 2.5 Mcg] Med 03/01/25 08:00 Active
2 puff INH R DAILY
�
Vitals:�
Temp Pulse Resp BP Pulse Ox
98.0 F 74 16 132/65 99
03/06/25 15:34 03/06/25 15:34 03/06/25 15:34 03/06/25 15:34 03/06/25 15:34
Height 5 ft 7 in
Actual Weight 61.83 kg
Body Mass Index (BMI) 21.4
�
Physical Exam:�
General Appearance/Observation: Well-developed, male in no apparent distress.�
Pain/Comfort Assessment: Severe right shoulder pain with touch or movement. Limits his ability to use the shoulder.
Mood/Affect: Mildly anxious
�
Integumentary/Operative Site:�No lesions noted during course of exam
�
Eyes: Conjunctiva/Lids: normal��� Pupils: pupils equal round and reactive to light
Ears/Nose/Throat: oral mucosa moist, throat clear.�����������
Cardiovascular: Heart: regular, no murmur�
Pulses: dorsalis pedis 2+ bilaterally�
Respiratory: Respiratory Effort/Chest Expansion: normal������ Auscultation: Clear to auscultation bilaterally
Gastrointestinal: abdomen not tender, no distension, normal abdominal bowel sounds
Genitourinary: Urinary catheter with yellow urine slight cloudiness
Extremities:�Edema: Mild right upper extremity edema. �Cyanosis: None�Trophic�changes: None
-It is noted with a bilateral upper extremity resting tremor right more than left.
Neurology Exam:
Orientation: Alert, Oriented to self, Time, Place�
Memory: Intact for recent medical concerns
Comprehension: Intact
Two step command: Intact
Cranial Nerves:
�� CNII:�Pupillary light reflex: Intact���
�� CN VII:�Facial movement: Symmetric
�� CN VIII:�Hearing: Normal
�� CN IX/X:�Speech & swallow: Normal,�Position of Uvula: Midline
�� CN XI:�Shoulder shrug: Patient deferred on right secondary to pain
�� CN XII:�Tongue protrusion: Midline
Sensory:
�� Light touch: Intact in bilateral upper and lower extremities
�
Musculoskeletal: Motor: (Manual muscle scale 0-5)�
Muscle SA EF WE EE FF HF KE DF PF
Right� NT* NT* NT* NT* 4 2* 5 5 5
Left 5 5 5 5 5 2* 5 5 5
�*limited by pain
Tone: Unable to assess right arm secondary to patient preference for it to not be touched
Range of Motion: Unable to assess right upper extremity per patient preference. Has limited shoulder flexion. Limited hip/knee evaluation secondary to pain with hip activities.
�
Lab Results
Laboratory Data
03/06/25 08:40
03/06/25 08:40
Total Bilirubin 0.6 mg/dl (0.2-1.3) 03/06/25 08:40
AST 23 U/L (17-59) 03/06/25 08:40
ALT 17 U/L (0-50) 03/06/25 08:40
Alkaline Phosphatase 89 U/L (38-126) 03/06/25 08:40
Total Protein 5.2 g/dl (6.3-8.2) L 03/06/25 08:40
Albumin 2.8 g/dl (3.5-5.0) L 03/06/25 08:40
�
Diagnostic Results:�as per HPI�
�
Assessment
79 y/o L-handed M PMH (Stage IV non-small lung cancer with bone mets, SVC syndrome, chronic pain with opioid dependence, paroxysmal atrial fibrillation, chronic HFpEF, SIADH, HTN, HLD, COPD, BPH, opioid-induced constipation) with 03/01/2025 with
generalized weakness, fatigue, anorexia, confusion, and malaise concern for syncopal event at home with questionable seizure-like activity, with Keppra stopped and concern for orthostasis with severe chronic right shoulder pain resulting in ADL and
ambulatory dysfunction.
Plan�
ADL and Ambulatory dysfunction:
-PT/OT to increase independence with ADLs, improve balance, coordination, endurance, strength, mobility, community reintegration, decreased burden of care on others and family education.
-Therapy notes a shuffling gait pattern, patient has bilateral hand tremors, patient notes episodes of falling backwards at times, and he has significant orthostasis. He does not recall any episodes of freezing. This group of symptoms would be
concerning for parkinsonism/Parkinson's disease or possible multisystem atrophy. Could consider neurology consult for further evaluation/treatment. If he had Parkinson's disease then a trial of Sinemet may help with his ambulation.
�
Orthostasis: On midodrine 5 mg at 0800, 1300, 1800. Thigh-high TEDS, abdominal binder. Could increase midodrine up to 10 mg if needed. Should avoid Florinef with history of CHF.
Severe right shoulder pain: Had elevated LFTs with Tylenol. On fentanyl patch 37 mcg/h. Gabapentin 300 mg twice daily
-Patient notes severe chronic pain in the right shoulder which limits his ability to move the shoulder or use the shoulder. This appears to have a significant impact on his quality of life.
-He could consider further evaluation with orthopedics to see if there is any surgical intervention such as shoulder replacement that would help with reducing the pain that has such an impact on his day-to-day life, even if he does not get a lot of
function out of the replacement. Patient said that he was concerned with a 1 year rehab process with the shoulder.
-He would also benefit from a palliative care evaluation to help with pain management to improve his quality of life.
- He has limited movement of the right upper extremity likely leading to dependent edema in the right upper extremity. Could elevate arm but given pain and limited range of motion this may be difficult. Could consider a edema glove, Tubigrip/loman
wrap. Increased opening and closing of the hand will also help. Patient had a right upper extremity ultrasound in the past on 10/27/2024 with no DVT and CT angiography suggesting a chronic SVC syndrome like condition.
COPD/metastatic lung cancer: Olodaterol, tiotropium. Takes Keytruda for lung cancer
HTN: Blood pressure medications held with orthostasis. No current hypertension concerns, monitor closely�
HLD: Statin��������������������������������
CHF: EF 55�60% on 02/23/2025, beta radha held with orthostasis, monitor fluid status�
Normocytic anemia: Stable in 10 range, could be related to Keytruda. Monitor.�
Psych: Monitor mood, adjust escitalopram 5 mg at bedtime as needed.�
Opioid-induced constipation: MiraLAX, Colace and senna, PRN bisacodyl.�
BPH: Monitor urine output
DVT Prophylaxis: Mechanical and apixaban
Pulmonary: Incentive spirometry�
Safety: Continue to reinforce assistance with all transfers.�
Code Status:� DNR�per chart
Dispo�(date/plan/equipment needs): Home with family care.� Social history reviewed.�
Functional and Medical Goals:�Return to ambulating with rolling walker short distances with supervision/min assist. Returned to baseline assistance levels for ADLs and IADLs.
Discharge Destination:�custodial facility. Patient will not tolerate an acute inpatient rehabilitation program based upon my evaluation today with particular limitation and pain in the right side and limitations with movement in the bilateral
hips/knees.
Case discussed with Dr. Ku.
A total of 80 minutes were spent with the patient preparing for the evaluation, obtaining history, performing examination and evaluation, counseling, discussion with hospitalist, data review, case management, care coordination, mill recorder, and EMR
documentation.
�
Thank you for allowing me to care for your patient. Please contact me with any questions or concerns.
Consultation
-
Date/Time Consultation Performed: 03/06/2025
Requesting Provider: Dr. Kimberly Ku
Performing Provider: Dr. Luis Mo
Reason for Consultation: Orthostasis, debility
[2025-03-06] MEDS: CRESTOR 20 MG PO (18:22)
[2025-03-06] MEDS: REMOVE LIDOCAINE PATCH 1 PATCH REMOVE (19:44)
[2025-03-06] MEDS: XALATAN OPHTHALMIC SOLUTION 1 DROP BOTH EYES (21:29)
[2025-03-06] MEDS: LEXAPRO 5 MG PO (21:29)
[2025-03-07] VITALS (8 sets, daily range): BP systolic 96–141; BP diastolic 54–68; PULSE 2–84; BMI 21.5
[2025-03-07] MEDS: DURAGESIC 12 MCG/HR PATCH 1 PATCH TRANSDERM (00:57)
[2025-03-07] MEDS: DURAGESIC 25 MCG/HR PATCH 1 PATCH TRANSDERM (00:57)
[2025-03-07] MEDS: REMOVE DURAGESIC PATCH 1 PATCH REMOVE ×2 (00:57→01:01)
--- NOTE | 2025-03-07 01:00 | PTCARENOTE ---
Wasted 2 Fentanyl patches on pt. (25 and 12 dosage), wasted with Gabriela Patel, applied 2 more Fentanyl patches on left upper arm and placed tegaderm over patches.
[2025-03-07] MEDS: STRIVERDI RESPIMAT 2 PUFF INH (08:25)
[2025-03-07] MEDS: SPIRIVA RESPIMAT 2.5 MCG 2 PUFF INH (08:25)
[2025-03-07] MEDS: LIDOCAINE 4% PATCH 1 PATCH TOPICAL (08:55)
[2025-03-07] MEDS: SENOKOT-S 2 TABLET PO ×2 (08:56→20:36)
[2025-03-07] MEDS: NEURONTIN 300 MG PO ×2 (08:56→20:36)
[2025-03-07] MEDS: MIRALAX 17 GRAMS PO (08:57)
[2025-03-07] MEDS: OSCAL 500 + D 500 MG PO ×2 (08:57→20:36)
[2025-03-07] MEDS: ELIQUIS 5 MG PO ×2 (08:57→20:30)
[2025-03-07] MEDS: SIMBRINZA 1%-0.2% OPHTH SUSP 1 DROP RIGHT EYE ×2 (08:57→20:37)
[2025-03-07 09:27] LABS: Hematocrit 29.8 % (39.0-52.0); Hemoglobin 9.7 g/dL (13.0-18.0); Mean Corp Hgb Conc. 32.6 g/dL (33.0-37.0); Mean Corpuscular Volume 88.7 fL (80.0-94.0); Nucleated Red Blood Cells % 0 % (-); Platelet Count 241 10^3/uL (130-400); Red Cell Dist. Width 17.5 % (11.5-14.5)
[2025-03-07 09:46] LABS: Blood Urea Nitrogen 16 mg/dl (9-20); Calcium 8.2 mg/dl (8.4-10.2); Carbon Dioxide 29 mmol/L (22-30); Chloride 99 mmol/L (98-107); Estimated Creatinine Clearance 88 ml/min; Glucose 110 mg/dl (70-99); Potassium 4.3 mmol/L (3.5-5.1); Sodium 130 mmol/L (135-145); eGFR > 60.00
--- NOTE | 2025-03-07 11:23 | W.PN.NEPH.PH ---
Today's Communication / Plan
-
Monitor serum sodium
Samsca as needed
Follow BMP
Assessment/Plan
-
IMP:
orthostatic hypotension
syncope on recent admit
chronic hyponatremia (urine osmolality 521)
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
SVC Syndrome s/p Radiation--Patient receiving Xgeva and Keytruda--Follows with Dr. Sandoval
Right shoulder pain/Chronic Pain with Opioid Dependence
Paroxysmal Atrial Fibrillation
Chronic HFpEF
Essential Hypertension
COPD without Acute Exacerbation
TASIA
Plan:
Recent admit for syncope-felt neurogenic started on Keppra returned back in few days of d/c with gen symp
noted orthostatic hypotension and symptomatic
now on midodrine and off BB, lasix and FR sodium at 130
chronic hyponatremia -multifactorial SIADH+orthostatics+
cortisol and TSH are fine
holding lasix for orthostasis, Keppra held as well
h/o CHF but seem euvolemic, ideally would start sodium tablets for hyponatremia management but cautious with congestive heart failure
I can use Samsca as needed as needed
orthostatics are better this am but evening vitals +ve, cont on midodrine
alb is low, encourage solute intake
pain control
-
-
Date of Service: March 07, 2025
CC / HPI / ROS
-
Chief Complaint:
Shortness of breath
History of Present Illness:
Patient with history of lung cancer CHF sodium at 130
Labile hypotension
Maintains on midodrine for orthostasis
Review of Systems:
on RA
No chest pain or shortness of breath
right shoulder pain is chronic
appetite is improving
Labs
-
Labs:
WBC 6.7 10^3/uL (4.8-10.8) 03/07/25 08:41
RBC 3.36 10^6/uL (4.70-6.10) L 03/07/25 08:41
Hgb 9.7 g/dL (13.0-18.0) L 03/07/25 08:41
Hct 29.8 % (39.0-52.0) L 03/07/25 08:41
Plt Count 241 10^3/uL (130-400) 03/07/25 08:41
Sodium 130 mmol/L (135-145) L 03/07/25 08:41
Potassium 4.3 mmol/L (3.5-5.1) 03/07/25 08:41
Chloride 99 mmol/L (98-107) 03/07/25 08:41
Carbon Dioxide 29 mmol/L (22-30) 03/07/25 08:41
BUN 16 mg/dl (9-20) 03/07/25 08:41
Creatinine 0.4 mg/dL (0.7-1.3) L 03/07/25 08:41
eGFR > 60.00 03/07/25 08:41
Glucose 110 mg/dl (70-99) H 03/07/25 08:41
Calcium 8.2 mg/dl (8.4-10.2) L 03/07/25 08:41
Albumin 2.8 g/dl (3.5-5.0) L 03/06/25 08:40
Physical Exam
-
Vital Signs:
Vital Signs
Temp Pulse Resp BP Pulse Ox
98.0 F 84 16 102/57 94
03/07/25 07:00 03/07/25 08:56 03/07/25 08:29 03/07/25 08:56 03/07/25 08:29
Cardiovascular:: Regular rate and rhythm
Extremity Edema:: None: Bilateral:
Quarles Catheter: No
[2025-03-07] MEDS: ROXICODONE 5 MG PO (13:43)
--- NOTE | 2025-03-07 15:40 | W.PN.HOSP.TC ---
Addendum entered and electronically signed by Kimberly Ku MD 03/07/25 15:53:
I saw and evaluated the patient independently. I reviewed the resident�s note and agree with findings and plan as documented by Dr. Uriostegui.
GENERAL: chronically ill appearing male, cachectic in no apparent distress
HEENT: NC/AT
HEART: regular rate and rhythm, +S1, +S2
LUNGS : clear to auscultation bilaterally
ABDOM: soft, nontender, nondistended, + bowel sounds
EXT: no cyanosis, clubbing-- trace edema--posterior right shoulder pain
NEUROLOGIC: grossly intact
: condom cath
Generalized weakness, fatigue, anorexia, confusion, malaise--agree, likely multifactorial--medication effects (Keppra intolerance which was started for apparent seizures last admission but EEG was negative), underlying malignancy and sequela,
deconditioning-- but is now mildly orthostatic by BP drop and now mildly symptomatic, TSH and cortisol WNL--cont midodrine, cards recommended increase to 7.5 mg BID, added teds stockings and abdominal binder --Keppra stopped, admission level was NOT
elevated (low normal range in fact) and therefore shows NO EVIDENCE of keppra toxicity--PT/OT rec SNF--recommended last admission but pt refused (told us he wanted to see how he did at home)--pt 03/04 inpt after persistent positive orthostatic
VS--apprec renal/cards--asked Dr. Lance from [facility] to [facility] for acute rehab--he feels pt will NOT tolerate 3 hours per day of therapy and rec SNF--in addition he noticed bilateral hand tremor, stiffness to his gait, shuffling feet, falling
backwards and orthostasis all concerning for possible Parkinson's/Parkinsonian features--consideration of Sinemet trial to see if symptoms improve
Hyponatremia--sodium 135 on admission but dropping to 131, back to 133--apprec renal input
Recent Episodic unresponsiveness (last admission)-- possible syncope versus seizure--History of seizure-like episodes--was on Keppra which was stopped, level pending--Recent episode occurred 2 hours after prolonged hot shower, possibly heat induced
syncope with vasodilation or seizure trigger--orthostatic by BP drop, holding toprol and lasix, apprec cards--ECHO WNL--EEG 02/23/2025�The study was suggestive of diffuse cortical dysfunction with no focal abnormality. No symptoms were recorded
Mild asymptomatic hyponatremia--appears chronic--likely SIADH and reset osmostat from chronic shoulder pain, possibly paraneoplastic from lung cancer--follow--fluid restrict--apprec renal input
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 Sandoval--unclear prognosis, follow up as outpt
Right shoulder pain--Continue pain control as needed with Tylenol, oxycodone as needed, fentanyl patch transdermal--PT/OT is following--chronic x 5 years
Chronic Pain with Opioid Dependence--Related to bone metastasis and cancer related pain--Continue fentanyl patch, oxycodone and gabapentin as prior to admission--narcotic meds could be contributing to orthostasis as well
Paroxysmal Atrial Fibrillation---Toprol to be held due to syncope, bradycardia, hypotension-Continue Eliquis
Chronic HFpEF--Most recent echocardiogram shows ejection fraction of 55 to 60%-Weight is decreased from baseline according to family--Hold Lasix acutely due to syncope, bradycardia, hypotension--Follow orthostatic BPs--may need midodrine--apprec
cards input
Essential Hypertension--meds as able
COPD without Acute Exacerbation--Stable-- Continue umeclidinium-vilanterol
TASIA--Continue nightly PAP therapy--follow-up with Pulm as an outpatient.
DVT Proph-- On Eliquis
Code Status-- DNR
since not candidate for [facility], looking at SNF
Original Note:
Today's Communication/Plan
-
- work with case management on finding a rehab facility
- trend orthostatics
Assessment / Plan
Assessment / Plan
had discussion with family in room regarding medications, medical concerns, different options upon discharge including rehab and snf's.
Generalized weakness, fatigue, anorexia, confusion, malaise
- Patient was admitted for similar presentation on last admission
-Likely multifactorial in the setting of medication effects VS underlying malignancy VS deconditioning
-PT/OT consulted and they recc skilled rehab for his weakness and deconditioning
- SNF was the patient at the last admission, but patient's family declined.
- Pts level of care changed to inpatient care as second set of orthostatic vitals positive.
- Today orthostatic vitals are negative. supine 119/35, sitting 124/62, standing 96/68 mmhg.
- Patient does not tolerate Kepra, so we will discontinue it. Kepra level has resulted and it is therapeutic at a level of 12.2 and NOT elevated.
- Patient is not a candidate for acute rehab at [facility] because he is unable to tolerate 3 hours of rehab a day.
Episodic unresponsiveness possible syncope versus seizure:
-History of seizure-like episodes on levetiracetam, level pending
-Recent episode occurred 2 hours after prolonged hot shower, possibly heat induced syncope or seizure trigger
-orthostatics are positive
-EEG 02/23/2025.�The study was suggestive of diffuse cortical dysfunction with no focal abnormality. No symptoms were recorded
-Echocardiogram 02/23-normal left ventricular size and function. Normal regional wall motion. Left ventricular ejection fraction 55-60%
- Previous echo showed a ejection fraction of 55-60%
- cardiology is following
-PT/OT for deconditioning and weakness and they recc skilled rehab.
- Increased midodrine to 7.5 mg BID to help maintain blood pressures on different positional changes.
- will hold Toprol, Lasix as they can decrease blood pressure and cause further exacerbate syncope.
- Tsh is normal. Morning cortisol is slightly elevated at 28.
- Ordered teds stockings and an abdominal binder as well to help keep the pressures normal on positional change.
Mild asymptomatic hyponatremia:
- Creatinine is 0.5 with normal potassium levels
- Sodium level is 130 trending up from 131 yesterday, probably siadh from stage Iv lung cancer
- continue to trend CMP.
- Nephro recc samsca as needed.
- PMNR [facility] sinemet trial as he has symptoms that could possibly be concerning for parkinsonism/ parkinsons disease.
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
-SVC Syndrome s/p Radiation
-Patient receiving Xgeva and Keytruda
-Follows with Dr. Sandoval oncologist
Right shoulder pain
-Continue pain control as needed with oxycodone as needed, will add in lidocaine transdermal patch
-PT/OT is following
- Tylenol was held as per patients wish regarding elevated LFT's, however upon chart review for this admission, there are no elevated LFTs.
- PMNR [facility] possible consideration for right shoulder replacement to improve quality of life.
Chronic Pain with Opioid Dependence
-Related to bone metastasis and cancer related pain
-Continue fentanyl patch, oxycodone
Paroxysmal Atrial Fibrillation:
-Toprol to be held due to syncope, bradycardia, hypotension
-Continue Eliquis
Chronic HFpEF
-Most recent echocardiogram shows ejection fraction of 55 to 60%
-Weight is decreased from baseline according to family.
-Hold Lasix acutely due to syncope bradycardia hypotension
-Follow orthostatic BPs.
SIADH
-Sodium level stable
-Continue fluid restriction
Essential Hypertension
-Blood pressures 120/57 and well-controlled
COPD without Acute Exacerbation
-Stable. Continue umeclidinium-vilanterol
TASIA
-Continue nightly PAP therapy.
-follow-up with Pulm as an outpatient.
DVT Prophylaxis: On Eliquis
Code Status: DNR
Anticipated Discharge: 24 - 48 hours
Subjective/Interval History
-
Date of Service: March 07, 2025
No overnight events
Patient complaining of right scapular pain in right shoulder. Has had chronic pain in this area for 5 years.
Objective Data
-
Labs:
Laboratory Results
03/07/25
08:41
WBC 6.7
Hgb 9.7 L
Hct 29.8 L
Plt Count 241
Sodium 130 L
Potassium 4.3
Chloride 99
Carbon Dioxide 29
BUN 16
Creatinine 0.4 L
Glucose 110 H
Calcium 8.2 L
Vital Signs:
Vital Signs
Temp Pulse Resp BP Pulse Ox
98.2 F 74 18 119/55 93
03/07/25 11:37 03/07/25 11:37 03/07/25 11:37 03/07/25 11:37 03/07/25 11:37
I&O
03/06/25 03/07/25 03/08/25
06:59 06:59 06:59
Intake Total 880 / 880
Output Total 2450 / 2450
Balance -1570 / -1570
Review of Systems
-
All other systems: Reviewed and negative (Except as documented)
Musculoskeletal: Reports Muscle Pain (Right shoulder pain around the right scapular area)
Neuro: Reports Lightheadedness
Physical Exam
-
General: Conversant, Appears Chronically Ill and Cachectic
HEENT: Normocephalic, Atraumatic and PERRLA
Respiratory: Non Labored Respirations
Cardiac: Regular Rhythm and S1/S2
GI: Soft, Nondistended and Normal Bowel Sounds
Musculoskeletal: No Edema and Other (Right shoulder pain, limited mobility due to pain)
Skin: Warm
Neuro: Awake
Psych: Calm
Data Reviewed
-
Labs: Labs Reviewed by me and Discussed with Physician
[2025-03-07] MEDS: CRESTOR 20 MG PO (17:19)
[2025-03-07] MEDS: REMOVE LIDOCAINE PATCH 1 PATCH REMOVE (20:36)
[2025-03-07] MEDS: LEXAPRO 5 MG PO (21:18)
[2025-03-07] MEDS: XALATAN OPHTHALMIC SOLUTION 1 DROP BOTH EYES (21:18)
[2025-03-08] VITALS (7 sets, daily range): BP systolic 110–139; BP diastolic 53–62; PULSE 2
[2025-03-08] MEDS: SPIRIVA RESPIMAT 2.5 MCG 2 PUFF INH (07:42)
[2025-03-08] MEDS: STRIVERDI RESPIMAT 2 PUFF INH (07:42)
[2025-03-08 08:33] LABS: Blood Urea Nitrogen 17 mg/dl (9-20); Calcium 8.0 mg/dl (8.4-10.2); Carbon Dioxide 27 mmol/L (22-30); Chloride 100 mmol/L (98-107); Estimated Creatinine Clearance 88 ml/min; Glucose 110 mg/dl (70-99); Potassium 4.2 mmol/L (3.5-5.1); Sodium 130 mmol/L (135-145); eGFR > 60.00
[2025-03-08] MEDS: SENOKOT-S 2 TABLET PO ×2 (08:44→21:42)
[2025-03-08] MEDS: NEURONTIN 300 MG PO ×2 (08:45→21:41)
[2025-03-08] MEDS: OSCAL 500 + D 500 MG PO ×2 (08:45→21:42)
[2025-03-08] MEDS: ELIQUIS 5 MG PO ×2 (08:46→21:41)
[2025-03-08] MEDS: LIDOCAINE 4% PATCH 1 PATCH TOPICAL (08:46)
[2025-03-08] MEDS: MIRALAX 17 GRAMS PO (08:47)
[2025-03-08] MEDS: SIMBRINZA 1%-0.2% OPHTH SUSP 1 DROP RIGHT EYE ×2 (08:47→21:42)
[2025-03-08] MEDS: ROXICODONE 5 MG PO ×3 (08:53→21:42)
--- NOTE | 2025-03-08 11:26 | W.PN.NEPH.PH ---
Today's Communication / Plan
-
We will sign off
Sodium level stable at 130
Assessment/Plan
-
IMP:
orthostatic hypotension
syncope on recent admit
chronic hyponatremia (urine osmolality 521)
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
SVC Syndrome s/p Radiation--Patient receiving Xgeva and Keytruda--Follows with Dr. Sandoval
Right shoulder pain/Chronic Pain with Opioid Dependence
Paroxysmal Atrial Fibrillation
Chronic HFpEF
Essential Hypertension
COPD without Acute Exacerbation
TASIA
Plan:
Recent admit for syncope-felt neurogenic started on Keppra returned back in few days of d/c with gen symp
noted orthostatic hypotension and symptomatic
now on midodrine and off BB, lasix and FR sodium at 130
chronic hyponatremia -multifactorial SIADH+orthostatics+
cortisol and TSH are fine
holding lasix for orthostasis, Keppra held as well
h/o CHF but seem euvolemic, ideally would start sodium tablets for hyponatremia management but cautious with congestive heart failure
can use Samsca as needed if hyponatremia exacerbates
orthostatics are better this am but evening vitals +ve, cont on midodrine
alb is low, encourage solute intake
pain control
Serum sodium levels are low but stable we will sign off
-
-
Date of Service: March 08, 2025
CC / HPI / ROS
-
Chief Complaint:
Shortness of breath
History of Present Illness:
Patient with history of lung cancer CHF sodium at 130, maintained on 48 ounce fluid restriction
Labile hypotension
Maintains on midodrine for orthostasis
Review of Systems:
on RA
No chest pain or shortness of breath
right shoulder pain is chronic
appetite is improving
Labs
-
Labs:
WBC 6.7 10^3/uL (4.8-10.8) 03/07/25 08:41
RBC 3.36 10^6/uL (4.70-6.10) L 03/07/25 08:41
Hgb 9.7 g/dL (13.0-18.0) L 03/07/25 08:41
Hct 29.8 % (39.0-52.0) L 03/07/25 08:41
Plt Count 241 10^3/uL (130-400) 03/07/25 08:41
Sodium 130 mmol/L (135-145) L 03/08/25 07:35
Potassium 4.2 mmol/L (3.5-5.1) 03/08/25 07:35
Chloride 100 mmol/L (98-107) 03/08/25 07:35
Carbon Dioxide 27 mmol/L (22-30) 03/08/25 07:35
BUN 17 mg/dl (9-20) 03/08/25 07:35
Creatinine 0.5 mg/dL (0.7-1.3) L 03/08/25 07:35
eGFR > 60.00 03/08/25 07:35
Glucose 110 mg/dl (70-99) H 03/08/25 07:35
Calcium 8.0 mg/dl (8.4-10.2) L 03/08/25 07:35
Albumin 2.8 g/dl (3.5-5.0) L 03/06/25 08:40
Physical Exam
-
Vital Signs:
Vital Signs
Temp Pulse Resp BP Pulse Ox
100.2 F 64 16 139/62 92
03/08/25 08:12 03/08/25 08:12 03/08/25 08:12 03/08/25 08:12 03/08/25 08:12
Cardiovascular:: Regular rate and rhythm
--- NOTE | 2025-03-08 14:24 | W.PN.HOSP.TC ---
Addendum entered and electronically signed by Kimberly Ku MD 03/08/25 14:54:
I saw and evaluated the patient independently. I reviewed the resident�s note and agree with findings and plan as documented by Dr. Uriostegui.
GENERAL: chronically ill appearing male, cachectic in no apparent distress
HEENT: NC/AT
HEART: regular rate and rhythm, +S1, +S2
LUNGS : clear to auscultation bilaterally
ABDOM: soft, nontender, nondistended, + bowel sounds
EXT: no cyanosis, clubbing-- trace edema--posterior right shoulder pain
NEUROLOGIC: grossly intact
: condom cath
since not candidate for [facility], looking at SNF--medically ready for d/c as orthostatic symptoms have improved
Generalized weakness, fatigue, anorexia, confusion, malaise--agree, likely multifactorial--medication effects (Keppra intolerance which was started for apparent seizures last admission but EEG was negative), underlying malignancy and sequela,
deconditioning-- but was orthostatic and symptomatic, TSH and cortisol WNL--cont midodrine, cards recommended increase to 7.5 mg BID, added teds stockings and abdominal binder --Keppra stopped, admission level was NOT elevated (low normal range in
fact) and therefore shows NO EVIDENCE of keppra toxicity--PT/OT rec SNF--recommended last admission but pt refused (told us he wanted to see how he did at home)--pt 03/04 inpt after persistent positive orthostatic VS--apprec renal/cards--asked
[facility] from [facility] to [facility] for acute rehab--he feels pt will NOT tolerate 3 hours per day of therapy and rec SNF--in addition he noticed bilateral hand tremor, stiffness to his gait, shuffling feet, falling backwards and orthostasis all
concerning for possible Parkinson's/Parkinsonian features--consideration of Sinemet trial to see if symptoms improve
Recent Episodic unresponsiveness (last admission)-- possible syncope versus seizure--History of seizure-like episodes--was on Keppra which was stopped, level pending--Recent episode occurred 2 hours after prolonged hot shower, possibly heat induced
syncope with vasodilation or seizure trigger--orthostatic by BP drop, holding toprol and lasix, apprec cards--ECHO WNL--EEG 02/23/2025�The study was suggestive of diffuse cortical dysfunction with no focal abnormality. No symptoms were recorded
Mild asymptomatic hyponatremia--appears chronic--likely SIADH and reset osmostat from chronic shoulder pain, possibly paraneoplastic from lung cancer--follow--fluid restrict--apprec renal input--sodium low but stable
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 Sandoval--unclear prognosis, follow up as outpt
Right shoulder pain--Continue pain control as needed with Tylenol, oxycodone as needed, fentanyl patch transdermal--PT/OT is following--chronic x 5 years
Chronic Pain with Opioid Dependence--Related to bone metastasis and cancer related pain--Continue fentanyl patch, oxycodone and gabapentin as prior to admission--narcotic meds could be contributing to orthostasis as well
Paroxysmal Atrial Fibrillation---Toprol to be held due to syncope, bradycardia, hypotension-Continue Eliquis
Chronic HFpEF--Most recent echocardiogram shows ejection fraction of 55 to 60%-Weight is decreased from baseline according to family--Hold Lasix acutely due to syncope, bradycardia, hypotension--Follow orthostatic BPs--may need midodrine--apprec
cards input
Essential Hypertension--meds as able
COPD without Acute Exacerbation--Stable-- Continue umeclidinium-vilanterol
TASIA--Continue nightly PAP therapy--follow-up with Pulm as an outpatient.
DVT Proph-- On Eliquis
Code Status-- DNR
Original Note:
Today's Communication/Plan
-
- work with case management on finding a snf
- trend orthostatics
Assessment / Plan
Assessment / Plan
awaiting placement of patient into a SNF upon availability.
Generalized weakness, fatigue, anorexia, confusion, malaise
- Patient was admitted for similar presentation on last admission
-Likely multifactorial in the setting of medication effects VS underlying malignancy VS deconditioning
-PT/OT consulted and they recc skilled rehab for his weakness and deconditioning
- SNF was the patient at the last admission, but patient's family declined.
- Pts level of care changed to inpatient care as second set of orthostatic vitals positive.
- Today orthostatic vitals are positive. supine 141/55, sitting 125/55. will attempt to get a second set.
- Patient does not tolerate Kepra, so we will discontinue it. Kepra level has resulted and it is therapeutic at a level of 12.2 and NOT elevated.
- Patient is not a candidate for acute rehab at [facility] because he is unable to tolerate 3 hours of rehab a day.
Episodic unresponsiveness possible syncope versus seizure:
-History of seizure-like episodes on levetiracetam, level pending
-Recent episode occurred 2 hours after prolonged hot shower, possibly heat induced syncope or seizure trigger
-orthostatics are positive
-EEG 02/23/2025.�The study was suggestive of diffuse cortical dysfunction with no focal abnormality. No symptoms were recorded
-Echocardiogram 02/23-normal left ventricular size and function. Normal regional wall motion. Left ventricular ejection fraction 55-60%
- Previous echo showed a ejection fraction of 55-60%
- cardiology is following
-PT/OT for deconditioning and weakness and they recc skilled rehab.
- continue midodrine to 7.5 mg BID to help maintain blood pressures on different positional changes.
- will hold Toprol, Lasix as they can decrease blood pressure and cause further exacerbate syncope.
- Tsh is normal. Morning cortisol is slightly elevated at 28.
- wear teds stockings and an abdominal binder as well to help keep the pressures normal on positional change.
chronic mild asymptomatic hyponatremia:
- Creatinine is 0.5 with normal potassium levels
- Sodium level is 130 trending up from 131 yesterday, probably siadh from stage Iv lung cancer. Deemed low but stable by nephrology.
- continue to trend CMP.
- Nephro recc samsca as needed.
- PMNR [facility]cc sinemet trial as he has symptoms that could possibly be concerning for parkinsonism/ parkinsons disease.
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
-SVC Syndrome s/p Radiation
-Patient receiving Xgeva and Keytruda
-Follows with Dr. Sandoval oncologist
Right shoulder pain
-Continue pain control as needed with oxycodone as needed, will add in lidocaine transdermal patch
-PT/OT is following
- Tylenol was held as per patients wish regarding elevated LFT's, however upon chart review for this admission, there are no elevated LFTs.
- PMNR rec possible consideration for right shoulder replacement to improve quality of life.
Chronic Pain with Opioid Dependence
-Related to bone metastasis and cancer related pain
-Continue fentanyl patch, oxycodone
Paroxysmal Atrial Fibrillation:
-Toprol to be held due to syncope, bradycardia, hypotension
-Continue Eliquis
Chronic HFpEF
-Most recent echocardiogram shows ejection fraction of 55 to 60%
-Weight is decreased from baseline according to family.
-Hold Lasix acutely due to syncope bradycardia hypotension
-Follow orthostatic BPs.
SIADH
-Sodium level stable
-Continue fluid restriction
Essential Hypertension
-Blood pressures 120/57 and well-controlled
COPD without Acute Exacerbation
-Stable. Continue umeclidinium-vilanterol
TASIA
-Continue nightly PAP therapy.
-follow-up with Pulm as an outpatient.
DVT Prophylaxis: On Eliquis
Code Status: DNR
Anticipated Discharge: 24 - 48 hours
Subjective/Interval History
-
Date of Service: March 08, 2025
No overnight events
no acute medical complaints.
Objective Data
-
Labs:
Laboratory Results
03/08/25
07:35
Sodium 130 L
Potassium 4.2
Chloride 100
Carbon Dioxide 27
BUN 17
Creatinine 0.5 L
Glucose 110 H
Calcium 8.0 L
Vital Signs:
Vital Signs
Temp Pulse Resp BP Pulse Ox
98.3 F 78 16 110/57 94
03/08/25 11:29 03/08/25 11:29 03/08/25 11:29 03/08/25 11:29 03/08/25 11:29
I&O
03/07/25 03/08/25 03/09/25
06:59 06:59 06:59
Intake Total 880 / 880 720 / 720
Output Total 2450 / 2450 1775 / 1775
Balance -1570 / -1570 -1055 / -1055
Review of Systems
-
All other systems: Reviewed and negative (Except as documented)
Musculoskeletal: Reports Muscle Pain (Right shoulder pain around the right scapular area)
Neuro: Reports Lightheadedness
Physical Exam
-
General: Conversant, Appears Chronically Ill and Cachectic
HEENT: Normocephalic, Atraumatic and PERRLA
Respiratory: Non Labored Respirations
Cardiac: Regular Rhythm and S1/S2
GI: Soft, Nondistended and Normal Bowel Sounds
Musculoskeletal: No Edema and Other (Right shoulder pain, limited mobility due to pain)
Skin: Warm
Neuro: Awake
Psych: Calm
Data Reviewed
-
Labs: Labs Reviewed by me and Discussed with Physician
[2025-03-08 16:34] LABS: Glucose - Point of Care 115 mg/dl (70-99)
[2025-03-08] MEDS: CRESTOR 20 MG PO (18:03)
[2025-03-08] MEDS: LEXAPRO 5 MG PO (21:42)
[2025-03-08] MEDS: XALATAN OPHTHALMIC SOLUTION 1 DROP BOTH EYES (21:42)
[2025-03-08] MEDS: REMOVE LIDOCAINE PATCH 1 PATCH REMOVE (21:47)
[2025-03-09] VITALS (11 sets, daily range): BP systolic 76–139; BP diastolic 49–71; PULSE 2–108; O2SAT 94; BMI 20.6
[2025-03-09] MEDS: SPIRIVA RESPIMAT 2.5 MCG 2 PUFF INH (07:09)
[2025-03-09] MEDS: STRIVERDI RESPIMAT 2 PUFF INH (07:09)
[2025-03-09 08:27] LABS: Hematocrit 33.2 % (39.0-52.0); Hemoglobin 10.5 g/dL (13.0-18.0); Mean Corp Hgb Conc. 31.6 g/dL (33.0-37.0); Mean Corpuscular Volume 89.0 fL (80.0-94.0); Nucleated Red Blood Cells % 0 % (-); Platelet Count 258 10^3/uL (130-400); Red Cell Dist. Width 17.8 % (11.5-14.5)
[2025-03-09] MEDS: ELIQUIS 5 MG PO ×2 (08:36→20:59)
[2025-03-09] MEDS: MIRALAX 17 GRAMS PO (08:37)
[2025-03-09] MEDS: OSCAL 500 + D 500 MG PO ×2 (08:37→20:59)
[2025-03-09] MEDS: NEURONTIN 300 MG PO ×2 (08:37→20:59)
[2025-03-09] MEDS: SENOKOT-S 2 TABLET PO ×2 (08:37→20:59)
[2025-03-09] MEDS: SIMBRINZA 1%-0.2% OPHTH SUSP 1 DROP RIGHT EYE ×2 (08:37→20:59)
[2025-03-09] MEDS: LIDOCAINE 4% PATCH 1 PATCH TOPICAL (08:38)
[2025-03-09 08:42] LABS: ALT (SGPT) 20 U/L (0-50); AST (SGOT) 26 U/L (17-59); Albumin 2.8 g/dl (3.5-5.0); Alkaline Phosphatase 91 U/L (38-126); Blood Urea Nitrogen 17 mg/dl (9-20); Calcium 7.8 mg/dl (8.4-10.2); Carbon Dioxide 29 mmol/L (22-30); Chloride 99 mmol/L (98-107); Estimated Creatinine Clearance 84 ml/min; Glucose 99 mg/dl (70-99); Potassium 4.4 mmol/L (3.5-5.1); Sodium 131 mmol/L (135-145); Total Protein 5.4 g/dl (6.3-8.2); eGFR > 60.00
[2025-03-09] MEDS: ROXICODONE 5 MG PO ×3 (08:43→20:58)
--- NOTE | 2025-03-09 09:32 | W.PN.HOSP.TC ---
Today's Communication/Plan
-
- work with case management on finding a snf
- trend orthostatics
Assessment / Plan
Assessment / Plan
awaiting placement of patient into a SNF upon availability.
Generalized weakness, fatigue, anorexia, confusion, malaise
- Patient was admitted for similar presentation on last admission
-Likely multifactorial in the setting of medication effects VS underlying malignancy VS deconditioning
-PT/OT consulted and they recc skilled rehab for his weakness and deconditioning
- SNF was the patient at the last admission, but patient's family declined.
- Pts level of care changed to inpatient care as second set of orthostatic vitals positive.
- Today awaiting orthostatic vitals. will attempt to get a second set.
- Patient does not tolerate Kepra, so we will discontinue it. Kepra level has resulted and it is therapeutic at a level of 12.2 and NOT elevated.
- Patient is not a candidate for acute rehab at [facility] because he is unable to tolerate 3 hours of rehab a day.
Episodic unresponsiveness possible syncope versus seizure:
-History of seizure-like episodes on levetiracetam, level pending
-Recent episode occurred 2 hours after prolonged hot shower, possibly heat induced syncope or seizure trigger
-orthostatics are positive
-EEG 02/23/2025.�The study was suggestive of diffuse cortical dysfunction with no focal abnormality. No symptoms were recorded
-Echocardiogram 02/23-normal left ventricular size and function. Normal regional wall motion. Left ventricular ejection fraction 55-60%
- Previous echo showed a ejection fraction of 55-60%
- cardiology is following
-PT/OT for deconditioning and weakness and they recc skilled rehab.
- continue midodrine to 7.5 mg BID to help maintain blood pressures on different positional changes.
- will hold Toprol, Lasix as they can decrease blood pressure and cause further exacerbate syncope.
- Tsh is normal. Morning cortisol is slightly elevated at 28.
- wear teds stockings and an abdominal binder as well to help keep the pressures normal on positional change.
chronic mild asymptomatic hyponatremia:
- Creatinine is 0.5 with normal potassium levels
- Sodium level is 13 trending up from 130 yesterday, probably siadh from stage Iv lung cancer. Deemed low but stable by nephrology.
- continue to trend CMP.
- Nephro recc samsca as needed.
- PMNR recc sinemet trial as he has symptoms that could possibly be concerning for parkinsonism/ parkinsons disease.
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
-SVC Syndrome s/p Radiation
-Patient receiving Xgeva and Keytruda
-Follows with Dr. Sandoval oncologist
Right shoulder pain
-Continue pain control as needed with oxycodone as needed, will add in lidocaine transdermal patch
-PT/OT is following
- Tylenol was held as per patients wish regarding elevated LFT's, however upon chart review for this admission, there are no elevated LFTs.
- PMNR recc possible consideration for right shoulder replacement to improve quality of life.
Chronic Pain with Opioid Dependence
-Related to bone metastasis and cancer related pain
-Continue fentanyl patch, oxycodone
Paroxysmal Atrial Fibrillation:
-Toprol to be held due to syncope, bradycardia, hypotension
-Continue Eliquis
Chronic HFpEF
-Most recent echocardiogram shows ejection fraction of 55 to 60%
-Weight is decreased from baseline according to family.
-Hold Lasix acutely due to syncope bradycardia hypotension
-Follow orthostatic BPs.
SIADH
-Sodium level stable
-Continue fluid restriction
Essential Hypertension
-Blood pressures 120/57 and well-controlled
COPD without Acute Exacerbation
-Stable. Continue umeclidinium-vilanterol
TASIA
-Continue nightly PAP therapy.
-follow-up with Pulm as an outpatient.
DVT Prophylaxis: On Eliquis
Code Status: DNR
Anticipated Discharge: 24 - 48 hours
Subjective/Interval History
-
Date of Service: March 09, 2025
No overnight events
no acute medical complaints.
Objective Data
-
Labs:
Laboratory Results
03/09/25
08:03
WBC 8.2
Hgb 10.5 L
Hct 33.2 L
Plt Count 258
Sodium 131 L
Potassium 4.4
Chloride 99
Carbon Dioxide 29
BUN 17
Creatinine 0.5 L
Glucose 99
Calcium 7.8 L
Total Bilirubin 0.8
AST 26
ALT 20
Alkaline Phosphatase 91
Vital Signs:
Vital Signs
Temp Pulse Resp BP Pulse Ox
98.3 F 100 20 121/66 93
03/09/25 07:50 03/09/25 08:38 03/09/25 07:50 03/09/25 08:38 03/09/25 07:50
I&O
03/08/25 03/09/25 03/10/25
06:59 06:59 06:59
Intake Total 720 / 720 990 / 990
Output Total 1775 / 1775 1350 / 1350
Balance -1055 / -1055 -360 / -360
Review of Systems
-
All other systems: Reviewed and negative (Except as documented)
Musculoskeletal: Reports Muscle Pain (Right shoulder pain around the right scapular area)
Neuro: Reports Lightheadedness
Physical Exam
-
General: Conversant, Appears Chronically Ill and Cachectic
HEENT: Normocephalic, Atraumatic and PERRLA
Respiratory: Non Labored Respirations
Cardiac: Regular Rhythm and S1/S2
GI: Soft, Nondistended and Normal Bowel Sounds
Musculoskeletal: No Edema and Other (Right shoulder pain, limited mobility due to pain)
Skin: Warm
Neuro: Awake
Psych: Calm
Data Reviewed
-
Labs: Labs Reviewed by me and Discussed with Physician
--- NOTE | 2025-03-09 11:30 | PTCARENOTE ---
Orthostatic vital signs completed. Patient positive for orthos as evidenced by documented vital signs. Patient symptomatic, stating he is lightheaded/dizzy. All safety measures were in place, including TEDS and abdominal binder. AM dose of midodrine
administered prior to performing orthos. Provider notified. Plan for patient to be out of bed, in a chair, this afternoon.
--- NOTE | 2025-03-09 11:52 | CM ---
CM reviewed chart, updated clinicals sent to [facility] for review for STR. [facility] inquiring about patients injection schedule and if transport will be required. CM spoke with patients , [facility], per , patient receives injection every three
weeks, this Sunday being scheduled. confirms at this time patient will need transport to injection appointments. Updates to liaison at [facility], awaiting ability to accept. [facility]erral previously sent to [facility], will send updated clinicals/
ability to accept. CM will continue to follow for all discharge planning needs.
Plan; STR pending accepting facility ([facility])
--- NOTE | 2025-03-09 13:10 | W.PN.UPDATE ---
Update Note
Progress Note Update
I saw and evaluated the patient. I reviewed the resident�s note and agree with findings and plan as documented in the resident�s note.
Denies chest pain or shortness of breath.
Gen: NAD, awake and alert, appears chronically ill
Eyes: EOMI, PERRLA, no scleral icterus.
Neck: supple.
CV: Irregularly irregular, +S1/S2, no m/r/g.
Resp: Anteriorly, no rales, wheezes, or rhonchi.
Neuro: CN 2-12 intact
Psych: Normal mood and affect.
Generalized weakness, fatigue, anorexia, confusion, malaise:
-likely multifactorial and due to Keppra medication AE, not toxicity as Keppra level normal (Keppra intolerance which was started for apparent seizures last admission but EEG was negative), underlying malignancy and sequela, deconditioning, and
orthostatic hypotension
-cont TEDs/abd binder
-Keppra stopped
-TSH/cortisol normal
-increase midodrine to 10mg TID
-not a candidate for [facility] acute rehab as he will not tolerate 3 hours/day of therapy
-as per Dr. Lance's evaluation, pt had signs of Parkinson's disease. Could consider a trial of Sinemet.
Recent Episodic unresponsiveness (last admission), likely due to orthostatic hypotension:
-possible syncope versus seizure (h/o seizure-like episodes). Keppra level normal 02/28/25, Keppra has bene stopped.
-Recent episode occurred 2 hours after prolonged hot shower, possibly heat induced syncope with vasodilation or seizure trigger
-orthostatic VS POS, Toprol and Lasix stopped
-cards saw in c/s
-Echo 02/23/25 with EF 55-60%
-EEG 02/23/25 without epileptiform activity
PAF:
-Toprol XL held due to syncope, bradycardia, hypotension
-cont Eliquis
Chronic HFpEF:
-Holding Lasix acutely due to syncope due to orthostatic hypotension
-daily wts, I/Os
Essential HTN:
Stage IV NSCLC with Bone Mets: h/o SVC Syndrome s/p XRT, on Xgeva/Keytruda, follows with Dr. Sandoval outpt
Chronic Pain with chronic opioid use with dependence: due to bone metastasis/cancer related pain, cont fentanyl patch/oxycodone/gabapentin, cont bowel regimen
COPD without Acute Exacerbation: cont Striverdi/Spiriva
TASIA: BIPAP HS
Chronic right shoulder pain
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
DNR/Eliquis
Discussed with CM at length. Left VM with pt's .
Total time spent on today's encounter was 50 minutes which included time spent in counseling the patient/family regarding diagnosis and treatment plan as listed above, goals of care, and symptom management. Case was discussed with nursing staff,
specialists, and care coordinators/case management. All labs and imaging personally reviewed by me. Remainder the time spent in detailed review of previous records, lab data, imaging, and other medical provider documentation.
[2025-03-09] MEDS: CRESTOR 20 MG PO (18:06)
[2025-03-09] MEDS: LEXAPRO 5 MG PO (20:59)
[2025-03-09] MEDS: REMOVE LIDOCAINE PATCH 1 PATCH REMOVE (20:59)
[2025-03-09] MEDS: XALATAN OPHTHALMIC SOLUTION 1 DROP BOTH EYES (21:00)
[2025-03-10] MEDS: REMOVE DURAGESIC PATCH 1 PATCH REMOVE ×2 (01:05)
[2025-03-10] MEDS: DURAGESIC 12 MCG/HR PATCH 1 PATCH TRANSDERM (01:05)
[2025-03-10] MEDS: DURAGESIC 25 MCG/HR PATCH 1 PATCH TRANSDERM (01:05)
[2025-03-10 06:00] VITALS: BMI 20.2
[2025-03-10] MEDS: SPIRIVA RESPIMAT 2.5 MCG 2 PUFF INH (07:16)
[2025-03-10] MEDS: STRIVERDI RESPIMAT 2 PUFF INH (07:16)
--- NOTE | 2025-03-10 07:47 | W.PN.UPDATE ---
Addendum entered and electronically signed by Ton Sanchez MD 03/10/25 10:14:
Total time spent on d/c = 33 min. This included today's physical exam, progress note, review of laboratory and diagnostic data, preparation of discharge documents and prescriptions, and discussions about the pt's hospital course and discharge plan
with the patient and other medical technologist generalist involved in the patient's care.
Original Note:
Update Note
Progress Note Update
I saw and evaluated the patient. I reviewed the resident�s note and agree with findings and plan as documented in the resident�s note.
No new complaints.
Gen: NAD, awake and alert, appears chronically ill
Eyes: EOMI, PERRLA, no scleral icterus.
Neck: supple.
CV: remains irregularly irregular, +S1/S2, no m/r/g.
Resp: CTAB anteriorly, no rales, wheezes, or rhonchi.
Neuro: remains CN 2-12 intact
Psych: Normal mood and affect.
Generalized weakness, fatigue, anorexia, confusion, malaise:
-likely multifactorial and due to Keppra medication AE, not toxicity as Keppra level normal (Keppra intolerance which was started for apparent seizures last admission but EEG was negative), underlying malignancy and sequela, deconditioning, and
orthostatic hypotension
-cont TEDs/abd binder
-Keppra stopped
-TSH/cortisol normal
-midodrine increased to 10mg TID with improvement in orthostasis
-not a candidate for [facility] acute rehab as he will not tolerate 3 hours/day of therapy
-as per Dr. Lance's evaluation, pt had signs of Parkinson's disease. Could consider a trial of Sinemet but would do this post d/c after outpt neurology evaluation.
Recent Episodic unresponsiveness (last admission), likely due to orthostatic hypotension:
-possible syncope versus seizure (h/o seizure-like episodes). Keppra level normal 02/28/25, Keppra has been stopped.
-Recent episode occurred 2 hours after prolonged hot shower, possibly heat induced syncope with vasodilation or seizure trigger
-orthostatic VS POS, Toprol and Lasix stopped
-cards saw in c/s
-Echo 02/23/25 with EF 55-60%
-EEG 02/23/25 without epileptiform activity
PAF:
-Toprol XL held due to syncope, bradycardia, hypotension
-cont Eliquis
Chronic HFpEF:
-Holding Lasix acutely due to syncope due to orthostatic hypotension
-daily wts, I/Os
Essential HTN:
Stage IV NSCLC with Bone Mets: h/o SVC Syndrome s/p XRT, on Xgeva/Keytruda, follows with Dr. Sandoval outpt
Chronic Pain with chronic opioid use with dependence: due to bone metastasis/cancer related pain, cont fentanyl patch/oxycodone/gabapentin, cont bowel regimen
COPD without Acute Exacerbation: cont Striverdi/Spiriva
TASIA: BIPAP HS
Chronic right shoulder pain
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
DNR/Eliquis
Medically cleared for d/c, case management aware.
[2025-03-10 07:51] VITALS: BP 135/70
[2025-03-10 07:52] VITALS: BP 119/62; BP 135/70; PULSE 77; PULSE 78
[2025-03-10] MEDS: NEURONTIN 300 MG PO (07:53)
[2025-03-10] MEDS: SENOKOT-S 2 TABLET PO (07:54)
[2025-03-10] MEDS: ELIQUIS 5 MG PO (07:54)
[2025-03-10] MEDS: OSCAL 500 + D 500 MG PO (07:56)
[2025-03-10] MEDS: MIRALAX 17 GRAMS PO (07:56)
[2025-03-10] MEDS: SIMBRINZA 1%-0.2% OPHTH SUSP 1 DROP RIGHT EYE (07:56)
[2025-03-10] MEDS: LIDOCAINE 4% PATCH TOPICAL (08:01)
[2025-03-10 08:47] LABS: Hematocrit 33.1 % (39.0-52.0); Hemoglobin 10.6 g/dL (13.0-18.0); Mean Corp Hgb Conc. 32.0 g/dL (33.0-37.0); Mean Corpuscular Volume 89.0 fL (80.0-94.0); Nucleated Red Blood Cells % 0 % (-); Platelet Count 278 10^3/uL (130-400); Red Cell Dist. Width 17.6 % (11.5-14.5)
[2025-03-10] MEDS: ROXICODONE 5 MG PO (08:54)
--- NOTE | 2025-03-10 09:15 | W.PN.HOSP.TC ---
Addendum entered and electronically signed by Arya Uriostegui MD, Resident 03/10/25 13:02:
Parkinsonian like features:
- PMNR recc sinemet trial as he has symptoms that could possibly be concerning for parkinsonism/ parkinsons disease. this can be done outpatient as per neuro.
Original Note:
Today's Communication/Plan
-
- pt to be discharged today to SNF
- trend orthostatics
Assessment / Plan
Assessment / Plan
awaiting placement of patient into a SNF upon availability.
Generalized weakness, fatigue, anorexia, confusion, malaise
- Patient was admitted for similar presentation on last admission
-Likely multifactorial in the setting of medication effects VS underlying malignancy VS deconditioning
-PT/OT consulted and they recc skilled rehab for his weakness and deconditioning
- SNF was the patient at the last admission, but patient's family declined.
- Pts level of care changed to inpatient care as second set of orthostatic vitals positive.
- Today orthostatic vitals, supine 135/70 and sitting 119/62
- Patient does not tolerate Kepra, so we will discontinue it. Kepra level has resulted and it is therapeutic at a level of 12.2 and NOT elevated.
- Patient is not a candidate for acute rehab at [facility] because he is unable to tolerate 3 hours of rehab a day.
Episodic unresponsiveness possible syncope versus seizure:
-History of seizure-like episodes on levetiracetam, level pending
-Recent episode occurred 2 hours after prolonged hot shower, possibly heat induced syncope or seizure trigger
-orthostatics are positive
-EEG 02/23/2025.�The study was suggestive of diffuse cortical dysfunction with no focal abnormality. No symptoms were recorded
-Echocardiogram 02/23-normal left ventricular size and function. Normal regional wall motion. Left ventricular ejection fraction 55-60%
- Previous echo showed a ejection fraction of 55-60%
- cardiology is following
-PT/OT for deconditioning and weakness and they recc skilled rehab.
- continue midodrine to 7.5 mg BID to help maintain blood pressures on different positional changes.
- will hold Toprol, Lasix as they can decrease blood pressure and cause further exacerbate syncope.
- Tsh is normal. Morning cortisol is slightly elevated at 28.
- wear teds stockings and an abdominal binder as well to help keep the pressures normal on positional change.
chronic mild asymptomatic hyponatremia:
- Creatinine is 0.5 with normal potassium levels
- Sodium level is 13 trending up from 130 yesterday, probably siadh from stage Iv lung cancer. Deemed low but stable by nephrology.
- continue to trend CMP.
- Nephro recc samsca as needed.
- PMNR recc sinemet trial as he has symptoms that could possibly be concerning for parkinsonism/ parkinsons disease. this can be done outpatient as per neuro.
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
-SVC Syndrome s/p Radiation
-Patient receiving Xgeva and Keytruda
-Follows with Dr. Sandoval oncologist
Right shoulder pain
-Continue pain control as needed with oxycodone as needed, will add in lidocaine transdermal patch
-PT/OT is following
- Tylenol was held as per patients wish regarding elevated LFT's, however upon chart review for this admission, there are no elevated LFTs.
- PMNR rec possible consideration for right shoulder replacement to improve quality of life.
Chronic Pain with Opioid Dependence
-Related to bone metastasis and cancer related pain
-Continue fentanyl patch, oxycodone
Paroxysmal Atrial Fibrillation:
-Toprol to be held due to syncope, bradycardia, hypotension
-Continue Eliquis
Chronic HFpEF
-Most recent echocardiogram shows ejection fraction of 55 to 60%
-Weight is decreased from baseline according to family.
-Hold Lasix acutely due to syncope bradycardia hypotension
-Follow orthostatic BPs.
SIADH
-Sodium level stable
-Continue fluid restriction
Essential Hypertension
-Blood pressures 120/57 and well-controlled
COPD without Acute Exacerbation
-Stable. Continue umeclidinium-vilanterol
TASIA
-Continue nightly PAP therapy.
-follow-up with Pulm as an outpatient.
DVT Prophylaxis: On Eliquis
Code Status: DNR
Anticipated Discharge: Today
Subjective/Interval History
-
Date of Service: March 10, 2025
No overnight events
no acute medical complaints.
Objective Data
-
Labs:
Laboratory Results
03/10/25
08:28
WBC 8.7
Hgb 10.6 L
Hct 33.1 L
Plt Count 278
Sodium Pending
Potassium Pending
Chloride Pending
Carbon Dioxide Pending
BUN Pending
Creatinine Pending
Glucose Pending
Calcium Pending
Total Bilirubin Pending
AST Pending
ALT Pending
Alkaline Phosphatase Pending
Vital Signs:
Vital Signs
Temp Pulse Resp BP Pulse Ox
98.3 F 78 17 135/70 98
03/10/25 07:51 03/10/25 07:51 03/10/25 07:51 03/10/25 07:51 03/10/25 07:51
I&O
03/09/25 03/10/25 03/11/25
06:59 06:59 06:59
Intake Total 990 / 990 480 / 480
Output Total 1350 / 1350 1350 / 1350
Balance -360 / -360 -870 / -870
Review of Systems
-
All other systems: Reviewed and negative (Except as documented)
Musculoskeletal: Reports Muscle Pain (Right shoulder pain around the right scapular area)
Neuro: Reports Lightheadedness
Physical Exam
-
General: Conversant, Appears Chronically Ill and Cachectic
HEENT: Normocephalic, Atraumatic and PERRLA
Respiratory: Non Labored Respirations
Cardiac: Regular Rhythm and S1/S2
GI: Soft, Nondistended and Normal Bowel Sounds
Musculoskeletal: No Edema and Other (Right shoulder pain, limited mobility due to pain)
Skin: Warm
Neuro: Awake
Psych: Calm
Data Reviewed
-
Labs: Labs Reviewed by me and Discussed with Physician
[2025-03-10 09:20] LABS: ALT (SGPT) 17 U/L (0-50); AST (SGOT) 21 U/L (17-59); Albumin 2.8 g/dl (3.5-5.0); Alkaline Phosphatase 92 U/L (38-126); Blood Urea Nitrogen 15 mg/dl (9-20); Calcium 8.1 mg/dl (8.4-10.2); Carbon Dioxide 29 mmol/L (22-30); Chloride 97 mmol/L (98-107); Estimated Creatinine Clearance 83 ml/min; Glucose 117 mg/dl (70-99); Potassium 4.0 mmol/L (3.5-5.1); Sodium 132 mmol/L (135-145); Total Protein 5.4 g/dl (6.3-8.2); eGFR > 60.00
--- NOTE | 2025-03-10 10:39 | CM ---
Addendum entered by Karin Crook 03/10/25 11:17:
Patient scheduled for 2:00 p.m. transport, seen bedside, reviewed and provided with IMM. Call to patients , spoke with and son, requesting call from Physician prior to discharge, TT to Resident with request. CM reviewed IMM verbally with
son and right to appeal, aware transport is scheduled for 2:00 p.m. and son would like to review all discharge medications prior to patient discharge to rehab as family reports [facility] has messed up patients medications in the past.
Original Note:
CM reviewed chart, spoke with liaison from [facility], confirmed ability to accept patient, aware of injection schedule, will have WC van transport from SNF to appointments. Call to patients , [facility], aware [facility] can accept patient today, will
be in to visit patient prior to d/c to review medications. Patient will require ambulance transport, forms provided to [facility]. CM will continue to follow for all discharge planning needs.
Plan; [facility], will require ambulance transport
[facility]
Report: [phone]
--- NOTE | 2025-03-10 11:00 | W.DCSUMMARY ---
Addendum entered and electronically signed by Arya Uriostegui MD, Resident 03/10/25 13:47:
Problem #10: Hyperlipidemia
-Continue rosuvastatin 20 mg on discharge
Original Note:
Discharge Summary
Discharge Data
Date of Admission: 03/04/25
Date of Discharge: 03/10/25
-
Pending Results: No
Hospital Course
Discharging Physician : Dr. Ton Sanchez and Dr. Arya Uriostegui
Disposition : SNF
Primary care physician : Dr. Jimenez Fitzpatrick
Principal Discharge diagnosis : Generalized weakness/fatigue/anorexia/confusion/malaise, episode of unresponsiveness possible syncope, chronic mild asymptomatic hyponatremia,
Chronic Discharge diagnosis : stage IV non-small cell lung cancer with bone metastasis, right shoulder pain, chronic pain with opiate dependence, paroxysmal atrial fibrillation, chronic HFpEF, SIADH, essential hypertension, COPD without acute
exacerbation, TASIA, depression, hyperlipidemia
Hospital Course : Patient is a 79y M with PMH significant for NSCLC on Keytruda / Xgeva, CHF, A-Fib and recent admission for syncope who presents to ED complaining of generalized weakness, fatigue, anorexia, confusion malaise, dizziness, near
syncope, no appetite.
Initial labs on admission included a hemoglobin of 9.9, sodium of 135, potassium 4.5, creatinine 0.5, negative urine analysis
Imaging includes x-ray of the chest which shows a treated malignancy in the right lung and bony metastatic disease.
Problem #1: Generalized weakness, fatigue, anorexia, confusion, malaise/episodic unresponsiveness due to syncope versus seizure:
-Likely multifactorial in the setting of medication effects versus underlying malignancy versus deconditioning. Keppra was discontinued after patient was found to be intolerant to Keppra and not toxic as therapeutic levels were in the normal range.
Keppra was started after last patient's discharge due to history of seizure-like episode. Patient's level of care changed to inpatient after 2 positive sets of orthostatic vitals. During course of hospital stay, patient had multiple positive
orthostatic vitals, on discharge supine blood pressure 135/70 and sitting blood pressure was 119/62. Echocardiogram showed normal left ventricular size and function with an ejection fraction of 55 to 60%. TSH normal and cortisol slightly elevated.
Held Toprol, Lasix as they can cause decreased blood pressure and further exacerbate syncope, this was also corroborated by Dr. Dempsey social services coordinator on his note on 03/04/2025. Ordered RANDALL stockings and abdominal binder to keep pressures normal on
positional change. PT/OT consulted and they recommended skilled rehab for his weakness and deconditioning. Patient is on 10 mg midodrine 3 times daily on discharge. PMNR consulted and patient does not qualify for acute rehab. Avoid any
hypertensive medications as per Dr. Dempsey. Patient will be discharged to SNF.
Problem #2: Mild asymptomatic hyponatremia:
- Appears chronic likely in the setting of SIADH. Possibly neoplastic from lung cancer. Nephrology is consulted and believed to be multifactorial due to SIADH plus orthostatics plus SSRI. Fluid is restricted , CMP was trended, nephro recommended
Samsca as needed. Sodium is 132 on discharge and stable.
Problem #3: Paroxysmal atrial fibrillation
-Toprol held due to syncope, bradycardia, hypotension. Eliquis was continued. Rate on discharge was 85 and well-controlled.
Problem #4: Stage IV non-small cell lung cancer with bone metastasis
-Continue patient on Xgeva and Keytruda as per scheduled doses.
Problem #5: Right shoulder pain/chronic pain with opioid dependence
- During hospital stay pain was controlled with Tylenol (Tylenol was asked to be held due to concerns of elevated LFTs however on labs there were no elevated LFTs during this admission), oxycodone as needed, fentanyl patch transdermal. Pain has
been chronic and has been there since 5 years. His chronic pain is related to bone metastasis and cancer related pain. PT/OT was consulted. PMNR was consulted and evaluated patient.
Problem #6: Chronic HFpEF
- Echocardiogram most recent one shows ejection fraction of 55 to 60%, held Lasix and Toprol due to syncope, bradycardia, hypotension. Weight on admission was 58.76 kg's and weight on discharge was 58.55 KG.
Problem #7: Essential hypertension
-Blood pressure on discharge is 132/67 and well-controlled. Stopped any antihypertensive drugs as they directly conflict with midodrine mechanism of action, this is corroborated by Dr. Dempsey social services coordinator in his note.
Problem #8: COPD without acute exacerbation
- Stable on Spiriva and olodaterol.
Problem #9: Obstructive sleep apnea
- Continue nightly CPAP therapy. Follow-up with pulmonology as an outpatient
Problem #10: Depression
-Continue with Lexapro 5 mg p.o. at bedtime
Problem #10: Hyperlipidemia
-Continue rosuvastatin 10 mg on discharge
Important imaging findings :
03/01/2025 chest x-ray:
IMPRESSION:
Findings again seen most likely representing treated malignancy in the right lung and bony metastatic disease.
No new opacity to suggest pneumonia.
Procedure findings :
Discharge Plan
-
Patient Disposition: [facility]/SNF
Discharge Diagnosis/Procedures: Generalized weakness, fatigue, anorexia, confusion, malaise, episodic unresponsiveness likely due to orthostatic hypotension, paroxysmal atrial fibrillation, chronic HFpEF, essential HTN, stage IV NSCLC with bone
mets, h/o SVC syndrome, COPD without acute exacerbation, Obstructive sleep apnea, chronic right shoulder pain, hyponatremia
Condition: Fair
Diet: Regular and Restrict fluids to 64 oz
Activity: As tolerated
Driving Restrictions: No driving
Bathing Restrictions: None
Blood Work: CBC in 1 week with PCP
CMP in 1 week with PCP
Specialty Instructions: Weigh Daily- Call MD for wt gain/loss 3 lbs overnight/5 lbs in 1 week
Referrals:
Jimenez Fitzpatrick MD [Family Provider, Family Practice] - in less than 1 week
Prescriptions:
New
lidocaine 4 % Adhesive Patch,Medicated
1 patch topical DAILY Qty: 5 0RF
midodrine 5 mg Tablet
10 mg PO TID@0800,1300,1800 Qty: 90 0RF
Continued
travoprost 0.004 % drops
1 drp BOTH EYES HS
thvvrwxwquqq-bzztjnjk-wgfowj Tablet
1 tab PO DAILY
Simbrinza 1-0.2 % Drops,Suspension
1 drp RIGHT EYE BID
umeclidinium-vilanterol [Anoro Ellipta] 62.5-25 mcg/actuation blister with device
1 inh INHALATION R QPM
Eliquis 5 mg Tablet
5 mg PO BID Qty: 60 5RF
polyethylene glycol 3350 [HealthyLax] 17 gram Powder In Packet
17 g PO DAILYPRN PRN (Reason: constipation) Qty: 100 0RF
bisacodyl [Dulcolax (bisacodyl)] 10 mg Suppository
10 mg NV DAILYPRN PRN (Reason: if no bm x 3 days)
oxycodone 5 mg tablet
5 mg PO .Q4-6HPRN PRN (Reason: severe pain)
Rx Instructions:
NO MORE THAN 4 TAB IN 24 HR
sennosides-docusate sodium [Senokot-S] 8.6-50 mg Tablet
2 tab-cap PO BID
psyllium Packet
1 packet PO DAILY
rosuvastatin 20 mg Tablet
20 mg PO .DINNER
gabapentin 300 mg capsule
300 mg PO BID
Slow-Mag 71.5 mg Tablet,Delayed Release (Dr/Ec)
143 mg PO DAILY
Xgeva 120 mg/1.7 mL (70 mg/mL) Solution
120 mg SC Q6W
Keytruda
1 dose IV Q3W
levalbuterol tartrate 45 mcg/actuation Hfa Aerosol Inhaler
1 puff INHALATION DAILYPRN PRN (Reason: sob)
fentanyl 25 mcg/hr Patch 72 Hour
1 patch TRANSDERMAL Q72H
Patient Comments:
with 12 mcg=37mcg
fentanyl 12 mcg/hr Patch 72 Hour
1 patch TRANSDERMAL Q72H
Patient Comments:
with 25mcg = 37mcg
hydrocortisone [Aquanil HC] 1 % lotion
1 applic topical DAILY
Patient Comments:
apply to both shoulders/arms
Calcium 500mg With D3 25mcg
2 tab PO BID
Fleet Enema 19-7 gram/118 mL Enema
118 ml NV DAILY PRN (Reason: IF NO BM X4 DAYS)
escitalopram oxalate [Lexapro] 5 mg Tablet
5 mg PO HS
Held
metoprolol succinate 25 mg Capsule,Sprinkle,Er 24hr
12.5 mg PO DAILY
Hold Instructions: Resume on 03/17/25. held because of patients orthostatic hypotension. Please discuss with PCP before continuing.
furosemide 20 mg Tablet
20 mg PO DAILY Qty: 30 0RF
Hold Instructions: Resume on 03/17/25. Held because of patients orthostatic hypotension. Please discuss with PCP before continuing
Discontinued
levetiracetam 500 mg Tablet
500 mg PO BID Qty: 60 0RF
Discharge Orders:
Discharge Patient (As Directed); Ordered 03/10/25
Ordered By: Ton Sanchez
Discharge Date and Time
Print Language: IVORIAN
[2025-03-10 12:35] VITALS: BP 132/67
--- NOTE | 2025-03-10 12:59 | W.PN.UPDATE ---
Update Note
Progress Note Update
chronic mild asymptomatic hyponatremia:
- Creatinine is 0.5 with normal potassium levels
- Sodium level is 132 trending up from 130 yesterday, probably siadh from stage Iv lung cancer. Deemed low but stable by nephrology.
- continue to trend CMP.
- Nephro recc samsca as needed.
- PMNR recc sinemet trial as he has symptoms that could possibly be concerning for parkinsonism/ parkinsons disease. this can be done outpatient as per neuro.
== END 2025-03-10 14:34 | DRG 181 ==
LOC: 4 WEST ACU 08:48
PROVIDERS: Specialist; Student in an Organized Health Care Education/Training Program; ADMITTING PHYSICIAN Hospitalist; ATTENDING PHYSICIAN Internal Medicine; CONSULT PHYSICIAN Internal Medicine; CONSULT PHYSICIAN Physical Medicine & Rehabilitation; EMERGENCY PHYSICIAN Emergency Medicine; FAMILY PHYSICIAN Family Medicine; OTHER PHYSICIAN Internal Medicine Cardiovascular Disease
PROC: 5A09357 Assistance with Respiratory Ventilation, Less than 24 Consecutive Hours, Continuous Positive Airway Pressure (ICD-10-PCS; 2025-03-01)
DX: C34.91 Malignant neoplasm of unspecified part of right bronchus or lung (principal); C79.51 Secondary malignant neoplasm of bone; E22.2 Syndrome of inappropriate secretion of antidiuretic hormone; I50.32 Chronic diastolic (congestive) heart failure; I87.1 Compression of vein; F11.20 Opioid dependence, uncomplicated; R64 Cachexia; I45.2 Bifascicular block; G20.C Parkinsonism, unspecified; T42.6X5A Adverse effect of other antiepileptic and sedative-hypnotic drugs, initial encounter; Y92.9 Unspecified place or not applicable; R47.81 Slurred speech; I11.0 Hypertensive heart disease with heart failure; F17.200 Nicotine dependence, unspecified, uncomplicated; G47.33 Obstructive sleep apnea (adult) (pediatric); J43.9 Emphysema, unspecified; G89.3 Neoplasm related pain (acute) (chronic); G89.4 Chronic pain syndrome; N40.0 Benign prostatic hyperplasia without lower urinary tract symptoms; H26.9 Unspecified cataract; K59.03 Drug induced constipation; T40.2X5A Adverse effect of other opioids, initial encounter; R56.9 Unspecified convulsions; E78.00 Pure hypercholesterolemia, unspecified; I71.20 Thoracic aortic aneurysm, without rupture, unspecified; I25.10 Atherosclerotic heart disease of native coronary artery without angina pectoris; I95.1 Orthostatic hypotension; M25.511 Pain in right shoulder; E88.09 Other disorders of plasma-protein metabolism, not elsewhere classified; F32.A Depression, unspecified; R63.0 Anorexia; R53.81 Other malaise; E04.2 Nontoxic multinodular goiter; J30.1 Allergic rhinitis due to pollen; M19.90 Unspecified osteoarthritis, unspecified site; R29.6 Repeated falls; I48.0 Paroxysmal atrial fibrillation; W07.XXXA Fall from chair, initial encounter; Y93.E1 Activity, personal bathing and showering; Y92.002 Bathroom of unspecified non-institutional (private) residence as the place of occurrence of the external cause; Z66 Do not resuscitate; Z87.19 Personal history of other diseases of the digestive system; Z79.01 Long term (current) use of anticoagulants; Z88.6 Allergy status to analgesic agent; Z88.8 Allergy status to other drugs, medicaments and biological substances; Z68.20 Body mass index [BMI] 20.0-20.9, adult; Z92.3 Personal history of irradiation; Z90.49 Acquired absence of other specified parts of digestive tract; Z75.1 Person awaiting admission to adequate facility elsewhere
CPT/HCPCS: 71045; 80048; 80053; 80177; 81003; 81015; 82533; 82570; 82962; 83735; 84156; 84443; 85025; 85027; 93005; 94640; 94660; 96360; 97162; 97166; 97530; 97535; 99285

== ENCOUNTER → 2025-03-13 10:41 | Outpatient (REF) | payer MEDICARE, OTHER, SELFPAY ==
[2025-03-13 10:57] LABS: Hematocrit 30.9 % (39.0-52.0); Hemoglobin 9.9 g/dL (13.0-18.0); Mean Corp Hgb Conc. 32.0 g/dL (33.0-37.0); Mean Corpuscular Volume 89.3 fL (80.0-94.0); Nucleated Red Blood Cells % 0 % (-); Platelet Count 305 10^3/uL (130-400); Red Cell Dist. Width 17.6 % (11.5-14.5)
[2025-03-13 11:21] LABS: ALT (SGPT) 15 U/L (0-50); AST (SGOT) 19 U/L (17-59); Albumin 2.7 g/dl (3.5-5.0); Alkaline Phosphatase 83 U/L (38-126); Blood Urea Nitrogen 17 mg/dl (9-20); Calcium 7.9 mg/dl (8.4-10.2); Carbon Dioxide 29 mmol/L (22-30); Chloride 98 mmol/L (98-107); Glucose 105 mg/dl (70-99); Magnesium 2.0 mg/dl (1.6-2.3); Potassium 4.0 mmol/L (3.5-5.1); Sodium 130 mmol/L (135-145); Total Protein 5.1 g/dl (6.3-8.2); eGFR > 60.00
== END ==
LOC: OLABWHC 10:41
PROVIDERS: ATTENDING PHYSICIAN Family Medicine
DX: I10 Essential (primary) hypertension (principal); I48.91 Unspecified atrial fibrillation; N17.9 Acute kidney failure, unspecified
CPT/HCPCS: 36415; 80053; 83735; 85025

== ENCOUNTER → 2025-03-24 11:37 | Outpatient (REF) | payer OTHER, MEDICARE, SELFPAY ==
[2025-03-24 13:14] LABS: Hematocrit 34.5 % (39.0-52.0); Hemoglobin 10.9 g/dL (13.0-18.0); Mean Corp Hgb Conc. 31.6 g/dL (33.0-37.0); Mean Corpuscular Volume 87.6 fL (80.0-94.0); Platelet Count 264 10^3/uL (130-400); Red Cell Dist. Width 17.6 % (11.5-14.5)
[2025-03-24 13:38] LABS: Blood Urea Nitrogen 17 mg/dl (9-20); Calcium 8.1 mg/dl (8.4-10.2); Carbon Dioxide 25 mmol/L (22-30); Chloride 98 mmol/L (98-107); Glucose 92 mg/dl (70-99); Potassium 4.5 mmol/L (3.5-5.1); Sodium 129 mmol/L (135-145); eGFR > 60.00
== END ==
LOC: OLABWHC 11:37
PROVIDERS: ATTENDING PHYSICIAN Family Medicine
DX: E44.0 Moderate protein-calorie malnutrition (principal); I10 Essential (primary) hypertension
CPT/HCPCS: 36415; 80048; 85027

== ENCOUNTER → 2025-03-25 14:56 | Outpatient (REF) | payer OTHER, MEDICARE, SELFPAY ==
[2025-03-25 16:39] LABS: ALT (SGPT) 18 U/L (0-50); AST (SGOT) 24 U/L (17-59); Albumin 3.2 g/dl (3.5-5.0); Alkaline Phosphatase 96 U/L (38-126); Blood Urea Nitrogen 20 mg/dl (9-20); Calcium 8.3 mg/dl (8.4-10.2); Carbon Dioxide 29 mmol/L (22-30); Chloride 95 mmol/L (98-107); Glucose 138 mg/dl (70-99); Potassium 4.5 mmol/L (3.5-5.1); Sodium 131 mmol/L (135-145); Total Protein 5.8 g/dl (6.3-8.2); eGFR > 60.00
== END ==
LOC: OIDL 14:56
PROVIDERS: ATTENDING PHYSICIAN Internal Medicine Hematology & Oncology
DX: C34.90 Malignant neoplasm of unspecified part of unspecified bronchus or lung (principal); C34.91 Malignant neoplasm of unspecified part of right bronchus or lung; C79.51 Secondary malignant neoplasm of bone; R53.82 Chronic fatigue, unspecified
CPT/HCPCS: 80053

== ENCOUNTER 2025-04-05 14:10 | Inpatient (IN) | payer MEDICARE, OTHER, SELFPAY ==
[2025-04-05] VITALS (14 sets, daily range): BP systolic 71–149; BP diastolic 44–134; BMI 19.2
--- NOTE | 2025-04-05 09:06 | ED.GENMED ---
History of Present Illness
<Sara Rubi PA-C - Last Filed: 04/05/25 14:27>
General
Chief Complaint: Breathing Problem
Time Seen by Provider: 04/05/25 08:56
History of Present Illness
History of Present Illness:
see MDM
Past History
<Sara Rubi PA-C - Last Filed: 04/05/25 14:27>
Past History
ED Past Medical History: HTN and Other (Diverticulitis)
ED Past Surgical History: Appendectomy, Orthopedic (Wrist surgery) and Tonsilectomy
Social History
Tobacco: Smoker
Alcohol: Occasional
Drug: None
Personal:
Living: with family
Employment: Employed
Phy Exam
<Sara Rubi PA-C - Last Filed: 04/05/25 14:27>
Physical Exam
Physical Exam:
see MDM
Scores
<Sara Rubi PA-C - Last Filed: 04/05/25 14:27>
Heart Failure Risk
Heart Failure Risk Score: Not Applicable
Course
<Sara Rubi PA-C - Last Filed: 04/05/25 14:27>
Orders/Labs/Results
Orders:
Orders
04/05/25 08:45
Electrocardiogram (*1) Urgent
Reason for Study: Chest Pain
EKG- Treatment ONCE
04/05/25 08:48
Complete Blood Count/With Diff Urgent
Comprehensive Metabolic Panel Urgent
LDH Urgent
Lactic Acid Q4H
Comment: ON ICE, CANCEL 2ND ORDER IF FIRST LACTIC ACID LEVEL <2
Blood Culture Q20M
MAHESH Source: Blood/Venous
Specimen Description:
Comment: Urgent from separate sites. If patient screens positive for possible sepsis
Influenza A+B Rapid Molecular Urgent
MAHESH Source: Nasal Swab
Specimen Description:
04/05/25 08:49
COVID-19 Antigen Urgent
Source: Nasal Swab
04/05/25 09:03
CR Chest Portable - 1 View Urgent
Comment:
Reason For Exam: hypoxia, fever
Reason Study Needs to be Portable: Patient Unstable
04/05/25 09:07
HYDROmorphone [Dilaudid] 0.25 mg IV NOW STA
04/05/25 09:08
0.9% Sodium Chloride 1000 ml [Nss] 1,000 ml IV BOLUS
04/05/25 09:21
CT Chest PE Study Urgent
Comment:
Reason For Exam: lung ca, acutely hypoxic
04/05/25 09:28
Ipratropium/Albuterol Sulfate [Duoneb] 3 ml INH R NOW STA
04/05/25 09:30
Piperacillin/Tazo 3.375 Gram [Zosyn] 3.375 gram in 50 ml IV NOW
04/05/25 09:32
Vancomycin 1 Gram/200 ml [Vancocin] 1 gram in 200 ml IV NOW
04/05/25 09:37
Ketorolac [Toradol] 15 mg IV NOW STA
04/05/25 09:46
Procalcitonin Urgent
If negative, will antibiotics be d/c'd or not started: Yes
Does the patient have renal or hepatic impairment?: No
Any recent (w/in 48 hrs) physiologic stress (CPR, rhabdo): No
Blood Culture Q20M
MAHESH Source: Blood/Venous
Specimen Description:
Comment: Urgent from separate sites. If patient screens positive for possible sepsis
04/05/25 13:09
IRAD CONSULT Routine
Consulting Provider: Tim Dowling
Was physician already notified: Yes
Procedure being ordered, including laterality if applicable: Right thoracentesis
Acknowledgement that appropriate orders are entered: Yes
Acid Fast Culture & Smear Routine
MAHESH Source: Pleural Fluid
Specimen Description:
Comment: post procedure
Body Fluid Cell Count Routine
What is the Body Fluid: pleural fluid
Comment: post procedure
Body Fluid Glucose Routine
Fluid Source: Pleural
Body Fluid LDH Routine
Fluid Source: Pleural
Body Fluid Protein Routine
Fluid Source: Pleural
Body Fluid pH Routine
Fluid Source: Pleural
Fluid Culture with Gram Stain Routine
MAHESH Source: Pleural Fluid
Specimen Description:
Comment: post procedure
Fungus Culture Routine
MAHESH Source: Pleural Fluid
Specimen Description:
Fungus Smear Routine
MAHESH Source: Pleural Fluid
Specimen Description:
Gram Stain Routine
MAHESH Source: Pleural Fluid
Specimen Description:
Comment: POST PROCEDURE
IRAD Cytology Routine
Source: Pleural Fluid, Right
Clinical Impression: pna vs possible heart failure
Induced Sputum [RESP] Routine
Quantity: 1
04/05/25 13:14
Hematocrit Routine
04/05/25 13:20
ONCOLOGY CONSULT Routine
Consulting Provider: Halie Armas
Was physician already notified: Yes
Reason for consult: Lung cancer on Keytruda s/p radiotherapy
04/05/25 13:21
PALLIATIVE CARE CONSULT Routine
Consulting Provider: Marylin Almendarez
Was physician already notified: Yes
Reason for Consult: Lung cancer, DNR/DNI
04/05/25 13:50
Admit/Transfer Patient As Directed
Co-Sign Provider:
Level of Care: Inpatient admission
Assign to:: IMU- Intermediate Care
Physician / Group: hospitalist
Diagnosis: pneumonia
Reason for Hospitalization: pneumonia, hypoxia, lung cancer
Expected length of stay greater than two midnights?: Yes
ELOS- Estimated Length of Stay in days: 3
I certify the patient meets the requirements for IP care: Yes
04/05/25 13:54
Code Status As Directed
Resuscitation Status: Do not resuscitate
Reached after discussion with pt or family/Healthcare POA: Yes
04/05/25 13:56
DNR Bracelet Application ONCE
Abnormal Lab Results
04/05/25 04/05/25
08:48 09:46
RBC 4.27 L 10^6/uL
(4.70-6.10)
Hgb 12.1 L g/dL
(13.0-18.0)
Hct 37.9 L %
(39.0-52.0)
MCHC 31.9 L g/dL
(33.0-37.0)
RDW 18.3 H %
(11.5-14.5)
Absolute Lymphs (auto) 0.2 L 10^3/uL
(1.2-3.4)
Neutrophils % 87.5 H %
(42.2-75.2)
Lymphocytes % 4.2 L %
(20.5-51.1)
BUN 24 H mg/dl
(9-20)
Creatinine 0.5 L mg/dL
(0.7-1.3)
Calcium 7.8 L mg/dl
(8.4-10.2)
Total Protein 6.0 L g/dl
(6.3-8.2)
Albumin 3.1 L g/dl
(3.5-5.0)
Procalcitonin 0.45 H ng/ml
(0.0-0.25)
04/05/25 13:14
Vital Signs
Initial and Last Documented VS:
Initial Vital Signs
Temp Pulse Resp Pulse Ox
37.9 C 115 20 85
04/05/25 08:33 04/05/25 08:33 04/05/25 08:33 04/05/25 08:33
Last Documented Vital Signs
Temp Pulse Resp BP Pulse Ox
37.9 C 113 29 112/68 97
04/05/25 08:33 04/05/25 09:00 04/05/25 09:00 04/05/25 09:00 04/05/25 09:07
<Karthik Stinson DO - Last Filed: 04/05/25 09:30>
Orders/Labs/Results
Orders:
Orders
04/05/25 08:45
Electrocardiogram (*1) Urgent
Reason for Study: Chest Pain
EKG- Treatment ONCE
04/05/25 08:48
Complete Blood Count/With Diff Urgent
Comprehensive Metabolic Panel Urgent
LDH Urgent
Lactic Acid Q4H
Comment: ON ICE, CANCEL 2ND ORDER IF FIRST LACTIC ACID LEVEL <2
Blood Culture Q20M
MAHESH Source: Blood/Venous
Specimen Description:
Comment: Urgent from separate sites. If patient screens positive for possible sepsis
Influenza A+B Rapid Molecular Urgent
MAHESH Source: Nasal Swab
Specimen Description:
04/05/25 08:49
COVID-19 Antigen Urgent
Source: Nasal Swab
04/05/25 09:03
CR Chest Portable - 1 View Urgent
Comment:
Reason For Exam: hypoxia, fever
Reason Study Needs to be Portable: Patient Unstable
04/05/25 09:07
HYDROmorphone [Dilaudid] 0.25 mg IV NOW STA
04/05/25 09:08
0.9% Sodium Chloride 1000 ml [Nss] 1,000 ml IV BOLUS
04/05/25 09:21
CT Chest PE Study Urgent
Comment:
Reason For Exam: lung ca, acutely hypoxic
04/05/25 09:28
Ipratropium/Albuterol Sulfate [Duoneb] 3 ml INH R NOW STA
04/05/25 09:30
Piperacillin/Tazo 3.375 Gram [Zosyn] 3.375 gram in 50 ml IV NOW
04/05/25 09:32
Vancomycin 1 Gram/200 ml [Vancocin] 1 gram in 200 ml IV NOW
04/05/25 09:37
Ketorolac [Toradol] 15 mg IV NOW STA
04/05/25 09:46
Procalcitonin Urgent
If negative, will antibiotics be d/c'd or not started: Yes
Does the patient have renal or hepatic impairment?: No
Any recent (w/in 48 hrs) physiologic stress (CPR, rhabdo): No
Blood Culture Q20M
MAHESH Source: Blood/Venous
Specimen Description:
Comment: Urgent from separate sites. If patient screens positive for possible sepsis
04/05/25 13:09
IRAD CONSULT Routine
Consulting Provider: Tim Dowling
Was physician already notified: Yes
Procedure being ordered, including laterality if applicable: Right thoracentesis
Acknowledgement that appropriate orders are entered: Yes
Acid Fast Culture & Smear Routine
MAHESH Source: Pleural Fluid
Specimen Description:
Comment: post procedure
Body Fluid Cell Count Routine
What is the Body Fluid: pleural fluid
Comment: post procedure
Body Fluid Glucose Routine
Fluid Source: Pleural
Body Fluid LDH Routine
Fluid Source: Pleural
Body Fluid Protein Routine
Fluid Source: Pleural
Body Fluid pH Routine
Fluid Source: Pleural
Fluid Culture with Gram Stain Routine
MAHESH Source: Pleural Fluid
Specimen Description:
Comment: post procedure
Fungus Culture Routine
MAHESH Source: Pleural Fluid
Specimen Description:
Fungus Smear Routine
MAHESH Source: Pleural Fluid
Specimen Description:
Gram Stain Routine
MAHESH Source: Pleural Fluid
Specimen Description:
Comment: POST PROCEDURE
IRAD Cytology Routine
Source: Pleural Fluid, Right
Clinical Impression: pna vs possible heart failure
Induced Sputum [RESP] Routine
Quantity: 1
04/05/25 13:14
Hematocrit Routine
04/05/25 13:20
ONCOLOGY CONSULT Routine
Consulting Provider: Halie Armas
Was physician already notified: Yes
Reason for consult: Lung cancer on Keytruda s/p radiotherapy
04/05/25 13:21
PALLIATIVE CARE CONSULT Routine
Consulting Provider: Marylin Almendarez
Was physician already notified: Yes
Reason for Consult: Lung cancer, DNR/DNI
04/05/25 13:50
Admit/Transfer Patient As Directed
Co-Sign Provider:
Level of Care: Inpatient admission
Assign to:: IMU- Intermediate Care
Physician / Group: hospitalist
Diagnosis: pneumonia
Reason for Hospitalization: pneumonia, hypoxia, lung cancer
Expected length of stay greater than two midnights?: Yes
ELOS- Estimated Length of Stay in days: 3
I certify the patient meets the requirements for IP care: Yes
04/05/25 13:54
Code Status As Directed
Resuscitation Status: Do not resuscitate
Reached after discussion with pt or family/Healthcare POA: Yes
04/05/25 13:56
DNR Bracelet Application ONCE
Abnormal Lab Results
04/05/25 04/05/25
08:48 09:46
RBC 4.27 L 10^6/uL
(4.70-6.10)
Hgb 12.1 L g/dL
(13.0-18.0)
Hct 37.9 L %
(39.0-52.0)
MCHC 31.9 L g/dL
(33.0-37.0)
RDW 18.3 H %
(11.5-14.5)
Absolute Lymphs (auto) 0.2 L 10^3/uL
(1.2-3.4)
Neutrophils % 87.5 H %
(42.2-75.2)
Lymphocytes % 4.2 L %
(20.5-51.1)
BUN 24 H mg/dl
(9-20)
Creatinine 0.5 L mg/dL
(0.7-1.3)
Calcium 7.8 L mg/dl
(8.4-10.2)
Total Protein 6.0 L g/dl
(6.3-8.2)
Albumin 3.1 L g/dl
(3.5-5.0)
Procalcitonin 0.45 H ng/ml
(0.0-0.25)
04/05/25 13:14
Vital Signs
Initial and Last Documented VS:
Initial Vital Signs
Temp Pulse Resp Pulse Ox
37.9 C 115 20 85
04/05/25 08:33 04/05/25 08:33 04/05/25 08:33 04/05/25 08:33
Last Documented Vital Signs
Temp Pulse Resp BP Pulse Ox
37.9 C 113 29 112/68 97
04/05/25 08:33 04/05/25 09:00 04/05/25 09:00 04/05/25 09:00 04/05/25 09:07
<Sara Rubi PA-C - Last Filed: 04/05/25 14:27>
MDM/Problems Addressed
Differential Diagnosis Includes:
see MDM
MDM/Problems Addressed:
Note:
CHIEF COMPLAINT(S)
Shortness of breath.
HISTORY OF PRESENT ILLNESS
The patient is a 79 y/o M with nonsmall cell lung CA s/p chemo/radiation and on hormone therapy (mets to bone), from SNF for fever, cough, hypoxia. pt says he has felt sob for 'quite some time' but worse recently. he seems not to be reliable in
time line. asks that i speak with his .
pt does not usually use O2. he had RA sat of 79% today with low grade temp and a wet sounding cough.
he usually has a cough but it is much more wet now. is at bedside and was able to confirm that pt has been more confused the past 2 days and was actually hypoxic yesterday at [place] so he was put on O2 then.
pt seemed worse today and needed more o2 so they called 911.
pt has chronic R shoulder pain related to OA and rotator cuff tear;
he also feels pain in his R ribs now that is new
he has taken his eliquis as far as he knows
saw cards last week and was told he is allowed to take motrin as needed even being on the eliquis for his pain
he is trying to wean off opiates
pt has not had ovmiting, diarrhea, hemoptysis
he is DNR, DNI
PAST MEDICAL AND SURIGICAL HISTORY
History of lung cancer with radiation treatment.
SOCIAL DETERMINANTS AFFECTING HEALTH
The patient has a family member involved in care and references that they should be present soon.
MEDICATIONS
The patient is on an immunotherapy regimen administered once every two weeks.
PHYSICAL EXAM
GENERAL:emaciated, illa ppearing, tachypneic mildly confused
EYE: pupils equal and reactive
NECK: Supple
ENT: dry mouth
CARDIAC: Irregularly irregular, tachycardic, no edema
LUNGS: Tachypneic, wet sounding cough, right upper lobe diminished breath sounds, fine crackles
ABDOMEN: Soft, without focal tenderness, no r/g, no cvat, normal bowel sounds
NEUROLOGICAL: Alert and oriented, no focal neuro deficits
SKIN: Warm and dry, skin intact.
MUSCULOSKELETAL: No edema, well perfused.
PSYCH: Normal and appropriate interaction.
- Vitals: Temperature is 100.3 degrees Fahrenheit. (Nursing notes reviewed and vital signs reviewed.)
PLAN
- Assess and manage the patient�s pain level, possibly with the provision of pain medication.
- Monitor oxygen requirements and discuss the need for respiratory support options considering the patients preference against intubation.
- Continue with the current immunotherapy regimen.
DIFFERENTIAL DIAGNOSIS
The Differential Diagnosis includes, in no particular order and is not limited to:
1. Progression or recurrence of lung cancer.
2. Chronic obstructive pulmonary disease.
3. Pulmonary embolism.
4. Congestive heart failure.
5. Pneumonia.
6. Radiation-induced pneumonitis.
7. Pleural effusion.
8. Interstitial lung disease.
9. Arrhythmia-related cardiopulmonary symptoms.
10. Anemia affecting oxygenation.
04/05/25 - 11:26
Patient presents with increased pleural effusion compared to previous assessments, likely secondary to pneumonia. Despite the differential including malignancy, the necessity for hospitalization was driven by the requirement for supplemental oxygen
and administration of broad-spectrum antibiotics. Notably, no pulmonary embolism was detected upon imaging. The decision has been made to admit the patient as an inpatient based on criteria fulfilled by the current clinical condition, including the
need for oxygen support. Further diagnostic clarification regarding the infectious agent awaits, potentially pending expectorated culture samples if feasible.
<Sara Rubi PA-C - Last Filed: 04/05/25 14:27>
*Pulse Oximetry
SaO2: 97
Oxygen Mode of Delivery: Room air
Patient hypoxic: yes (86)
*Critical Care Note
Total Time (30-74mins, 75-104mins- exclusive of procedures): Not Applicable
ED Attending Note
<Sara Rubi PA-C - Last Filed: 04/05/25 14:27>
-
Portions of this chart may have been created with voice recognition software.� Occasional wrong word or��sound alike� substitutions may have occurred due to the inherent limitations of voice recognition software.
<Karthik Stinson DO - Last Filed: 04/05/25 09:30>
ED Attending Note
Patient seen and examined by attending physician: Yes
I performed the substantive portion of visit, reviewed & personally made and approve the management plan that is documented in note by myself or KAYLAN.: Yes
ED Attending Note:
I agree with Cassandra's note
Patient presents with increasing cough, more productive cough and significant shortness of breath. Patient typically does not require supplemental oxygen but was started on oxygen yesterday due to low pulse ox. Oxygen flow has been titrated up.
No fever per se. Patient's intake is poor. He has significant weakness. Lung cancer is metastatic to the bone.
General: Awake, Alert, Oriented X3. Some increased work of breathing, appears cachectic and chronically ill
Vitals: tachycardic
Head: Atraumatic
Eyes: Pupils equal, EOMI
Throat: Airway intact, no exudates, dry mucosa
Neck: Trachea midline
Lungs: Decreased breath sounds throughout, some rhonchi on the right
Heart: Regular rate, no murmurs
Neuro: Nonfocal
Skin: Warm, dry, no rash
Extremities: pulses equal b/l, no edema
pCXR seems unchanged from previous. Will obtain CT to eval for pneumonia and check procal
See if nebs help, cover with one dose iv abx, ivf. Clearly will require admission
Discharge Plan
Departure
Patient Disposition: Admit
Date of Disposition: 04/05/25
Time of Disposition: 11:16
Admit to: IMU
Presentation/result/management discussed w/ accepting MD/DO: Hospitalist
Condition: Fair
Covid-19: Negative COVID-19
Discharge Problem:
Bilateral pleural effusion, Pneumonia
Interventions
Interventions:
*Risk Screen - Suicide Last Done: 04/05/25 08:33
*General Assessment Last Done: 04/05/25 08:33
*Neglect/Abuse Screening Last Done: 04/05/25 08:33
[2025-04-05] MEDS: NSS 1000 IV (09:13)
[2025-04-05] MEDS: DILAUDID 0.25 MG IV (09:14)
[2025-04-05 09:17] LABS: Hematocrit 37.9 % (39.0-52.0); Hemoglobin 12.1 g/dL (13.0-18.0); Mean Corp Hgb Conc. 31.9 g/dL (33.0-37.0); Mean Corpuscular Volume 88.8 fL (80.0-94.0); Platelet Count 322 10^3/uL (130-400); Red Cell Dist. Width 18.3 % (11.5-14.5)
[2025-04-05 09:26] LABS: COVID-19 Antigen Negative (Negative)
[2025-04-05 09:32] LABS: ALT (SGPT) 20 U/L (0-50); AST (SGOT) 25 U/L (17-59); Albumin 3.1 g/dl (3.5-5.0); Alkaline Phosphatase 90 U/L (38-126); Blood Urea Nitrogen 24 mg/dl (9-20); Calcium 7.8 mg/dl (8.4-10.2); Carbon Dioxide 25 mmol/L (22-30); Chloride 104 mmol/L (98-107); Estimated Creatinine Clearance 74 ml/min; Glucose 93 mg/dl (70-99); Potassium 4.1 mmol/L (3.5-5.1); Sodium 137 mmol/L (135-145); Total Protein 6.0 g/dl (6.3-8.2); eGFR > 60.00
[2025-04-05] MEDS: TORADOL 15 MG IV (09:48)
[2025-04-05] MEDS: ZOSYN 50 IV (09:49)
[2025-04-05] MEDS: DUONEB 3 ML INH (09:50)
[2025-04-05 09:53] LABS: Nucleated Red Blood Cells % 0 % (-)
[2025-04-05 10:31] LABS: Procalcitonin 0.45 ng/ml (0.0-0.25)
[2025-04-05] MEDS: VANCOCIN 200 IV (11:15)
--- NOTE | 2025-04-05 12:54 | W.PN.UPDATE ---
Update Note
Progress Note Update
I personally performed a history and physical exam of the patient and discussed management with the resident. I reviewed the resident's note and agree with the documented findings and plan of care HPI/CC.
79-year-old male who presents with chief complaints of shortness of breath and hypoxemia over the last 24 to 48 hours.
112/68, 113, 29, 100.3 F, 97% 4L NC O2
Gen: NAD, Awake and alert, appears chronically ill
Eyes: EOMI, PERRLA, no scleral icterus.
Neck: supple.
CV: irreg/irrage, +S1/S2, no m/r/g.
Resp: CTAB anteriorly, dec BS in the R base laterally (due to R shoulder pain pt was unable to sit up), no rales, wheezes, or rhonchi.
Abd: +BS, soft, NT, ND
Skin: No rashes. No LE edema
Neuro: CN 2-12 intact, non-focal.
Psych: Normal mood and affect.
Lab Results
04/05/25 04/05/25 04/05/25
08:48 08:49 09:46
WBC 4.8
RBC 4.27 L
Hgb 12.1 L
Hct 37.9 L
MCV 88.8
MCH 28.3
MCHC 31.9 L
RDW 18.3 H
Plt Count 322
MPV 9.9
Abs Immat Gran (auto) 0.0
Absolute Neuts (auto) 4.2
Absolute Lymphs (auto) 0.2 L
Absolute Monos (auto) 0.4
Absolute Eos (auto) 0.0
Absolute Basos (auto) 0.0
Immature Gran % 0.4
Neutrophils % 87.5 H
Lymphocytes % 4.2 L
Monocytes % 7.5
Eosinophils % 0.0
Basophils % 0.4
Nucleated RBC % 0
Sodium 137
Potassium 4.1
Chloride 104
Carbon Dioxide 25
BUN 24 H
Creatinine 0.5 L
Estimated Creat Clear 74
eGFR > 60.00
Glucose 93
Lactic Acid 2.0
Calcium 7.8 L
Total Bilirubin 0.8
AST 25
ALT 20
Alkaline Phosphatase 90
Total Protein 6.0 L
Albumin 3.1 L
Procalcitonin 0.45 H
SARS-CoV-2 Antigen Negative
04/05/25 08:48 Nasal Swab Influenza Types A & B (MELYSSA) - Final
Negative for Influenza A & B, NAAT
Negative results must be combined with clinical observations
and patient history.
Nucleic Acid Amplification test (NAAT) performed on the
[employer] platform.
CTA chest: No PE. Moderate R pleural effusion. Small L pleural effusion. New. Moderate bibasilar consolidation concerning for pneumonia. Left greater than right. New. Stable band of scar tissue versus treated neoplasm in the right upper lobe.
Stable known mild osseous metastasis. Too small to characterize hypodense hepatic lesions likely small cysts or hemangiomas. Stable right-sided pulmonary nodules. Mild emphysematous disease.
Severe sepsis and acute hypoxemic respiratory failure due to B/L PNA:
-Patient received 1 L normal saline in the ER. I would not give this patient the full 30cc/kg bolus due to history of congestive heart failure, stable blood pressure, pleural effusions concerning for acute CHF.
-Procalcitonin is noted but should not have been ordered in a patient with malignancy, it is not interpretable
-on RA at baseline, currently on 4L NC O2 (note was on 6L NC O2 at [place] yesterday)
-severe sepsis a/e/b tachypnea, fever (temp 100.3 F constitutes a fever in an immunocompromised patient), tachycardia, source PNA
-B/L pleural effusions are concerning for acute on chronic heart failure with preserved ejection fraction. In the setting of severe sepsis due to pneumonia, not only will we not give further IV fluids but I am not going to give diuretics at this
moment. Cardiology will see in c/s, discussed with Dr. Le. Also, regarding the patient's atrial fibrillation with a rapid ventricular response, the tachycardia is likely due to infection and we will not pursue aggressive rate control at this
moment.
-Dx/Tx thoracentesis of mod R pleural effusion
-COVID/Flu NEG
-cont empiric Vanco/Zosyn
-follow BCxs
-c/s pulm
PAF with RVR:
-RVR due to severe sepsis
-in the recent past pt's BB was stopped due to syncope, bradycardia, orthostatic hypotension
-cont Eliquis
Chronic HFpEF:
-was on Lasix in the past which was stopped due to orthostatic hypotension
-possible acute on chronic HFpEF as above
-daily wts, I/Os
Other problems:
Orthostatic hypotension: cont Midodrine, place abd binder
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 Sandoval outpt
Chronic Pain with chronic opioid use with dependence: due to bone metastasis/cancer related pain, cont fentanyl patch/oxycodone/gabapentin, cont bowel regimen
COPD without Acute Exacerbation: cont Striverdi/Spiriva
TASIA: BIPAP HS
Chronic right shoulder pain: reported OA and rotator cuff tear
h/o paraneoplastic SIADH
DNR/I
I had a very antionette conversation with the patient's over the phone. I explained that due to his overwhelming burden of pathology notable for orthostatic hypotension, stage IV non-small cell lung carcinoma with bone mets, deconditioning, chronic
heart failure with preserved ejection fraction, in the setting of recurrent hospitalizations that his overall prognosis is poor. I did encourage her to discuss with her as to whether he would want to have continued, aggressive, treatment
oriented he care or whether he would be interested in symptom only oriented care.
--- NOTE | 2025-04-05 13:30 | HPS.HSE ---
Family Physician
-
Family Physician: Jimenez Fitzpatrick
[facility] physician: Moncho Jimenez MD
Chief Complaint
-
Productive cough and hypoxia
History of Present Illness
Mr. Adolfo Higgins is a pleasant 79yoM with a PMH notable for stage IV lung carcinoma (Keytruda, s/p radiotherapy), paroxysmal A-fib (Eliquis), right shoulder arthritis (sp ORIF, on oxycodone, fentanyl, ibuprofen), orthostatic hypotension
(midodrine), who presents from [facility] with acute on chronic productive cough and hypoxia.
2 days ago, the noticed that the patient was more confused. His oxygen saturation started to drop and it went as low as the 70s. His O2 requirement increased up to 6 L. He has had a cough for few months but it became productive in the last 2
days. COVID test at the [facility] was negative.
He has stage IV lung cancer cancer. He received Keytruda (pembrolizumab, immunotherapy) infusions every 3 weeks. He finished radiotherapy a few months ago. He scratched receives Xgeva (denosumab) infusions every 6 weeks for bone metastases to
prevent pathological fractures.
He has right shoulder pain from arthritis. It was determined that the right shoulder pain is not due to malignancy. He had an ORIF. He is on oxycodone, fentanyl, and ibuprofen. His states that his pain regimen is for his right shoulder not a
cancer related pain. His special delivery worker stated that he may take an NSAID with Eliquis because his Eliquis dose was low.
Medical History
Past Medical History
Past Medical History: Reports Arrhythmia (Paroxysmal A-fib)
Past Surgical History: Reports Appendectomy, Bowel Resection (Robotic sigmoid resection for abscess 1 foot long) and Orthopedic (Right shoulder arthroscopic rotator cuff repair, biceps tenodesis)
Additional Past Surgical History:
Right inguinal hernia repair, left inguinal hernia repair with mesh, left wrist proximal carpectomy, bilateral cataract, colonoscopies with polyp removals, Rectal mass removal, Pelvic mass biopsy, impacted wisdom teeth
Social History
Tobacco: Smoker
Alcohol: Occasional
Personal:
Living: [facility]
Employment: Retired
Family History
Family History: Not pertinent
Allergies / Home Medications
Allergies reflects when Allergies were last updated in [employer].
Home Medications with original date entered in [employer]
Allergy/Medication List:
Allergies
Allergy/AdvReac Type Severity Reaction Status Date / Time
levetiracetam (From [facility]) AdvReac Severe Fatigue Verified 04/05/25 09:08
acetaminophen AdvReac Intermediate LFT Verified 04/05/25 09:08
abnormalities
Hayfever Allergy Sneezing, Uncoded 04/05/25 09:08
watery/itchy
eyes,
stuffy nose
Home Medications
brinzolamide 1 %-brimonidine 0.2 % eye drops,suspension (Simbrinza) 1 drp RIGHT EYE BID Eye Condition 04/09/23
[id number]-yrtesb tablet (Theratrum Complete 50 Plus with Lutein tablet) 1 tab PO DAILY Supplement 04/09/23
apixaban 5 mg tablet (Eliquis) 5 mg PO BID #60 tabs 04/10/23
bisacodyl 10 mg rectal suppository (Dulcolax (bisacodyl)) 10 mg WI DAILYPRN PRN if no bm x 3 days 05/14/24
oxycodone 5 mg tablet 5 mg PO Q6HPRN PRN severe pain 05/14/24
denosumab 120 mg/1.7 mL (70 mg/mL) subcutaneous solution 120 mg SC Q4W Cancer ##0 11/18/24
gabapentin 300 mg capsule 300 mg PO HS Neurological Condition 11/18/24
psyllium 1 packet PO DAILY Constipation 11/18/24
sennosides 8.6 mg-docusate sodium 50 mg tablet (Senokot-S) 2 tab-cap PO BIDPRN PRN constipation 11/18/24
calcium carbonate 1,000 mg PO BID Supplement ##0 01/20/25
fentanyl 12 mcg/hr transdermal patch 1 patch transdermal Q72H severe pain 01/20/25
fentanyl 25 mcg/hr transdermal patch 1 patch transdermal Q72H severe Pain 01/20/25
sodium phosphates 19 gram-7 gram/118 mL enema (Fleet Enema) 118 ml WI DAILYPRN PRN IF NO BM X4 DAYS 02/21/25
midodrine 5 mg tablet 10 mg (2 x 5 mg) PO TID@0800,1300,1800 Blood pressure #90 tabs 03/10/25
albuterol sulfate 90 mcg/actuation aerosol inhaler 2 puff inhalation R Q6HPRN PRN sob 04/05/25
cholecalciferol (vitamin D3) 50 mcg (2,000 unit) capsule (Vitamin D3) 50 mcg PO BID 04/05/25
collagenase clostridium histo. 250 unit/gram topical ointment (Santyl) 1 applic topical DAILY 04/05/25
fluticasone 113mcg-salmeterol 14mcg/actuation breath act,powder sensor (AirDuo Digihaler) 1 inh inhalation R BID 04/05/25
hydrocortisone 1 % lotion 1 applic topical DAILY 04/05/25
ibuprofen 200 mg tablet (Advil) 400 mg PO [id number] PRN mild pain 04/05/25
latanoprost 0.005 % eye drops 1 drp BOTH EYES HS 04/05/25
lidocaine 4 % topical cream 1 applic topical Q4HPRN PRN mild pain 04/05/25
magnesium hydroxide 400 mg/5 mL oral suspension (Milk of Magnesia) 2,400 mg PO HSPRN PRN if no bm by 2nd day 04/05/25
magnesium oxide 400 mg PO DAILY 04/05/25
mirtazapine 15 mg tablet (Remeron) 15 mg PO HS 04/05/25
pantoprazole 40 mg tablet,delayed release (Protonix) 40 mg PO DAILY 04/05/25
pembrolizumab 25 mg/mL intravenous solution (Keytruda) 200 mg IV Q21D 04/05/25
rosuvastatin 40 mg tablet (Crestor) 40 mg PO QPM 04/05/25
sodium chloride 1 gram tablet 1,000 mg PO BID 04/05/25
Review of Systems
-
History Source: Patient and Family
Constitutional: Reports Fever
Respiratory: Reports Cough and Trouble Breathing
Cardiac: Denies Chest Pain
Abdomen/GI: Reports No Symptoms
: Reports No Symptoms
Musculoskeletal: Reports Joint Pain (Right shoulder)
Skin: Reports No Symptoms
Neurological: Reports No Symptoms
Physical Exam
Vital Signs
Vital Signs
Temp Pulse Resp BP Pulse Ox
100.3 F 113 29 112/68 97
04/05/25 08:33 04/05/25 09:00 04/05/25 09:00 04/05/25 09:00 04/05/25 09:07
Physical Exam
General: Well Developed, No Apparent Distress, Comfortable and Cachectic
HEENT: NormoCephalic, Anicteric, Moist mucous membranes, Nose Appears Normal and Ears Appear Normal
Respiratory: Rales
Cardiac: S1/S2 and Regular Rhythm
GI: Soft, Non Tender, Non Distended and Normal Bowel Sounds
Musculoskeletal: No Clubbing and No Cyanosis; No Edema, Left Upper Extremity, Edema, Right Upper Extremity, Edema, Left Lower Extremity or Edema, Right Lower Extremity
Skin: Warm and Dry
Neuro: Awake, Alert, Oriented, Nonfocal/grossly intact, Cranial Nerves Intact and Tremors (Left hand tremor which has been present for years)
Psych: Calm
Laboratory Results
-
Laboratory Results
Lactic Acid 2.0 mmol/L (0.7-2.0) 04/05/25 08:48
Total Bilirubin 0.8 mg/dl (0.2-1.3) 04/05/25 08:48
AST 25 U/L (17-59) 04/05/25 08:48
ALT 20 U/L (0-50) 04/05/25 08:48
Alkaline Phosphatase 90 U/L (38-126) 04/05/25 08:48
Data Reviewed
-
Diagnostic Radiology: Report Reviewed by me
CT Scan: Report Reviewed by me
Ultrasound: Report Reviewed by me
Medical Tests (Nuc Med, Echo, EKG etc): Report Reviewed by me
Lab Data: Labs Reviewed by me
Impression/Plan
-
IMPRESSION:
Mr. Adolfo Higgins is a 79yoM with a PMH notable for stage IV lung carcinoma (Keytruda, s/p radiotherapy), paroxysmal A-fib (Eliquis), right shoulder arthritis (sp ORIF, on oxycodone, fentanyl, ibuprofen), orthostatic hypotension (midodrine), who
presents from [facility] with acute on chronic productive cough and hypoxia.
PLAN:
#Hypoxia, productive cough
#Bilateral pleural effusions
� Moderate right pleural effusion and small left pleural effusion
� May be due to pneumonia, heart failure, immune related pneumonitis
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 Bilateral pulmonary nodules, likely metastases
�Follows with Dr. Sandoval
Plan
� Thoracentesis of moderate right pleural effusion
# NSCLC, stage IV
� Keytruda infusion every 3 weeks. Finished radiotherapy.
#Widespread osseous metastatic disease.
� Xgeva every 6 weeks to prevent pathologic fractures
�Calcium carbonate 1000 mg p.o. twice daily, vitamin D 50 mcg p.o. twice daily
Plan
� Hematology�oncology consult
� Pulmonology consult
� Palliative care consult
� Continue vancomycin and Zosyn
#A-fib
� Eliquis 5 mg p.o. twice daily
- beta radha discontinued previously due to soft blood pressures
#Chronic HFpEF
� Echo 02/23/25: Mildly dilated aortic root. LV EF 55 to 60%. Normal LV size and function. Normal regional wall motion
� Cardiology consult
� Daily weights, I/O
#Orthostatic hypotension
He took sodium chloride p.o. at home for hyponatremia and hypotension
� Midodrine 10 mg p.o. 3 times daily
#Right shoulder pain
S/p ORIF
� Oxycodone 5 mg p.o. every 6 as needed, fentanyl patch 25 mcg every 72 hours, gabapentin 300 mg p.o. nightly
� Holding ibuprofen due to risk of increased bleeding in combination with Eliquis
#COPD: Continue home inhalers: Albuterol, fluticasone salmeterol
#Depression: Mirtazapine 15 mg p.o. nightly
#Hyperlipidemia: Continue home rosuvastatin 40 mg p.o. every afternoon
#Glaucoma: Latanoprost, Brinzolamide/brimonidine
CODE STATUS: DNR and DNI
DVT prophylaxis: Eliquis 5 mg p.o. twice daily
Diet: Regular
Dispo: PT OT consult. Came from [facility]
[2025-04-05 14:34] LABS: LDH 266 U/L (120-246)
[2025-04-05 16:49] LABS: Hematocrit 28.1 % (39.0-52.0)
[2025-04-05] MEDS: OSCAL CAL 500 1000 MG PO (20:06)
[2025-04-05] MEDS: CRESTOR 40 MG PO (20:06)
[2025-04-05] MEDS: ELIQUIS 5 MG PO (20:06)
[2025-04-05] MEDS: VITAMIN D3 (cholecalciferol) 50 MCG PO (20:06)
[2025-04-05] MEDS: SODIUM CHLORIDE 1 GRAM PO (20:06)
[2025-04-05] MEDS: ADVAIR HFA 115/21 MCG INHALER 2 PUFF INH (20:29)
[2025-04-05] MEDS: REMERON 15 MG PO (21:20)
[2025-04-05] MEDS: NEURONTIN 300 MG PO (21:20)
--- NOTE | 2025-04-05 22:24 | CON.CAR ---
Consultation
Consultation Request
Date/Time Consultation Requested: 04/05/25
Date/Time Consultation Performed: 04/05/25
Requesting Provider: Dr. Sanchez
Performing Provider: Dr. Le
Reason for Consultation: SOB
Medical History
-
Chief Complaint: Shortness of breath and cough
History of Present Illness:
I had the pleasure to meet Quentin Higgins in ICU 3348 for concerns of heart failure exacerbation after fluid resuscitation for sepsis related to bilateral pneumonia. Quentin is a 79-year-old gentleman with Metastatic non-small cell lung cancer on
Keytruda /Xgeva, History of SVC syndrome, heart failure with preserved ejection fraction, orthostatic hypotension with syncope, TASIA on CPAP, COPD, SIADH/Chronic hyponatremia, paroxysmal atrial fibrillation, hyperlipidemia, and COPD. He was recently
hospitalized at [facility] from March 04-2024 for syncope, symptomatic orthostatic hypotension, generalized weakness and anorexia. During this hospitalization midodrine was titrated to 10 mg 3 times daily and Toprol was held due to
bradycardia and hypotension. He was continued on Eliquis.
Past Medical History
Past Medical History: Arrhythmias and Cancer
Social History
Tobacco: Former Smoker
Alcohol: None
Drug: None
Personal:
Living: With Family
Employment: Retired
Family History
Family History: Reviewed & Not Pertinent
Allergies / Home Medications
Allergy/AdvReac Type Severity Reaction Status Date / Time
levetiracetam (From [facility]) AdvReac Severe Fatigue Verified 04/05/25 09:08
acetaminophen AdvReac Intermediate LFT Verified 04/05/25 09:08
abnormalities
Hayfever Allergy Sneezing, Uncoded 04/05/25 09:08
watery/itchy
eyes,
stuffy nose
�Medication �Instructions �Recorded �Confirmed �Type
brinzolamide 1 %-brimonidine 0.2 % 1 drp RIGHT EYE BID Eye Condition 04/09/23 04/05/25 History
eye drops,suspension (Simbrinza)
fjbhdtvpqsgy-nwgzsaat-jxaqss 1 tab PO DAILY Supplement 04/09/23 04/05/25 History
tablet (Theratrum Complete 50 Plus
with Lutein tablet)
apixaban 5 mg tablet (Eliquis) 5 mg PO BID #60 tabs 04/10/23 04/05/25 Rx
bisacodyl 10 mg rectal suppository 10 mg DC DAILYPRN PRN if no bm x 3 05/14/24 04/05/25 History
(Dulcolax (bisacodyl)) days
oxycodone 5 mg tablet 5 mg PO Q6HPRN PRN severe pain 05/14/24 04/05/25 History
denosumab 120 mg/1.7 mL (70 mg/mL) 120 mg SC Q4W Cancer ##0 11/18/24 04/05/25 History
subcutaneous solution
gabapentin 300 mg capsule 300 mg PO HS Neurological Condition 11/18/24 04/05/25 History
psyllium 1 packet PO DAILY Constipation 11/18/24 04/05/25 History
sennosides 8.6 mg-docusate sodium 2 tab-cap PO BIDPRN PRN 11/18/24 04/05/25 History
50 mg tablet (Senokot-S) constipation
calcium carbonate 1,000 mg PO BID Supplement ##0 01/20/25 04/05/25 History
fentanyl 12 mcg/hr transdermal 1 patch transdermal Q72H severe 01/20/25 04/05/25 History
patch pain
fentanyl 25 mcg/hr transdermal 1 patch transdermal Q72H severe 01/20/25 04/05/25 History
patch Pain
sodium phosphates 19 gram-7 118 ml DC DAILYPRN PRN IF NO BM X4 02/21/25 04/05/25 History
gram/118 mL enema (Fleet Enema) DAYS
midodrine 5 mg tablet 10 mg (2 x 5 mg) PO 03/10/25 04/05/25 Rx
TID@0800,1300,1800 Blood pressure
#90 tabs
albuterol sulfate 90 mcg/actuation 2 puff inhalation R Q6HPRN PRN sob 04/05/25 04/05/25 History
aerosol inhaler
cholecalciferol (vitamin D3) 50 50 mcg PO BID 04/05/25 04/05/25 History
mcg (2,000 unit) capsule (Vitamin
D3)
collagenase clostridium histo. 250 1 applic topical DAILY 04/05/25 04/05/25 History
unit/gram topical ointment (Santyl)
fluticasone 113mcg-salmeterol 1 inh inhalation R BID 04/05/25 04/05/25 History
14mcg/actuation breath act,powder
sensor (AirDuo Digihaler)
hydrocortisone 1 % lotion 1 applic topical DAILY 04/05/25 04/05/25 History
ibuprofen 200 mg tablet (Advil) 400 mg PO [id number] PRN mild pain 04/05/25 04/05/25 History
latanoprost 0.005 % eye drops 1 drp BOTH EYES HS 04/05/25 04/05/25 History
lidocaine 4 % topical cream 1 applic topical Q4HPRN PRN mild 04/05/25 04/05/25 History
pain
magnesium hydroxide 400 mg/5 mL 2,400 mg PO HSPRN PRN if no bm by 04/05/25 04/05/25 History
oral suspension (Milk of Magnesia) 2nd day
magnesium oxide 400 mg PO DAILY 04/05/25 04/05/25 History
mirtazapine 15 mg tablet (Remeron) 15 mg PO HS 04/05/25 04/05/25 History
pantoprazole 40 mg tablet,delayed 40 mg PO DAILY 04/05/25 04/05/25 History
release (Protonix)
pembrolizumab 25 mg/mL intravenous 200 mg IV Q21D 04/05/25 04/05/25 History
solution (Keytruda)
rosuvastatin 40 mg tablet (Crestor) 40 mg PO QPM 04/05/25 04/05/25 History
sodium chloride 1 gram tablet 1,000 mg PO BID 04/05/25 04/05/25 History
Physical Exam
Vital Signs
Temp Pulse Resp BP Pulse Ox
98.8 F 91 19 108/63 98
04/05/25 19:47 04/05/25 20:34 04/05/25 20:34 04/05/25 20:05 04/05/25 20:34
Lab Results
04/05/25 16:36
04/05/25 13:14
Xgl-M-Gefzwcfkyza Pept 3670 pg/ml 04/05/25 20:20
Impression / Plan
-
Housekeeping Laundry Worker: Dr. Dempsey
Assessment:
Hypoxic respiratory failure/febrile illness with bilateral pneumonia
Volume overload following IV fluid resuscitation with history of heart failure with preserved ejection fraction
Paroxysmal atrial fibrillation, currently in rapid atrial fibrillation
Chronic OAC with Eliquis
Orthostatic hypotension
Metastatic NSCLC
COPD/emphysema
SVC syndrome, currently receiving radiation�improvement after radiation of upper extremity edema
Thyroid nodules
BPH
Tobacco abuse
Thoracic aortic aneurysm 4.[address] in [address] of chest
Diverticulitis with diverticular abscess with colon resection
Chronic neck and back pain
Former alcoholic
DNR code status
ECHO 11/18/24: EF 55-60%, normal RWM, mild TR, trivial pericardial effusion, dilated aortic root
ECHO 02/23/2025: LV ejection fraction 55 to 60%. No regional wall motion abnormality. Normal RV size and systolic function. Trace mitral regurgitation. Trileaflet mildly sclerotic aortic valve with trace aortic regurgitation. Mild tricuspid
regurgitation. Estimated pulmonary artery pressure 29 mmHg assuming a right atrial pressure 3 mmHg. Trivial pericardial effusion. Mildly dilated aortic root: 4.1 cm at sinus of Valsalva. Mildly dilated proximal ascending aorta, 4.1 cm.
Plan:
Patient presented with hypoxic respiratory distress and fever in immunocompromise patient. They received 1 L normal saline in the ED which has now been discontinued. CTA chest negative for PE with moderate right pleural effusion and small left
pleural effusion as well as bilateral basilar consolidations concerning for pneumonia, left greater than right.
-COVID/flu negative
- Lasix 20 mg IV now
-Agree with primary's plan for IR thoracentesis of right pleural effusion
- IV antibiotics per primary.
- Panculture pending
Continue BiPAP and O2 supplementation
- Pulmonary consulted
Patient has a history of heart failure with preserved ejection fraction. He had previously been on Lasix which was stopped due to orthostatic hypotension
- Volume status difficult with bilateral pneumonia but appears volume overloaded after fluid resuscitation
-proBNP 3670
- IV Lasix 20 mg now. Will try to continue IV Lasix if blood pressure allows
-No need to repeat echocardiogram at this time
-Continue midodrine
Paroxysmal atrial fibrillation currently in atrial fibrillation. --Heart rates better controlled than earlier
-Will monitor but not resume beta-radha at this time given history of orthostasis
-If patient does not convert back to sinus rhythm Or rates proved difficult to control, consider amiodarone
-Continue Eliquis anticoagulation
.
Data Reviewed
-
EKG: Tracing Personally Visualized and interpreted
Radiology: Report Reviewed by me
Medical Tests (Nuc Med, Echo etc): Report Reviewed by me
Labs: Labs Reviewed by me
Old Records: Reviewed
[2025-04-06] VITALS (23 sets, daily range): BP systolic 77–135; BP diastolic 40–78; PULSE 108; O2SAT 98; BMI 18.5
[2025-04-06] MEDS: REMOVE DURAGESIC PATCH 2 PATCH REMOVE (00:15)
[2025-04-06] MEDS: DURAGESIC 25 MCG/HR PATCH 1 PATCH TRANSDERM (00:16)
[2025-04-06] MEDS: DURAGESIC 12 MCG/HR PATCH 1 PATCH TRANSDERM (00:16)
[2025-04-06] MEDS: SIMBRINZA 1%-0.2% OPHTH SUSP 1 DROP RIGHT EYE ×3 (00:17→20:10)
[2025-04-06] MEDS: XALATAN OPHTHALMIC SOLUTION 1 DROP BOTH EYES ×2 (00:17→22:35)
[2025-04-06] MEDS: LASIX 20 MG IV ×2 (00:17→10:23)
--- NOTE | 2025-04-06 02:50 | PTCARENOTE ---
Assumed care for patient overnight. Pt AAOx3, anxious at times. Received pt on 4L NC. SpO2 97%. Pt has a harsh productive cough. A-fib on the monitor HR 95. Pt had Fentanyl patches on from home, ALFREDITO Littlejohn made aware, patches removed wasted and
replaced per protocol and per orders. STAT order for IV Lasix see SEP. BP 109/59. Pt incontinent of bowel and bladder. Page care done. CC #30 placed for incontinence and accurate output. Pt educated. Stage 2 wound on coccyx. Cleansed with saline,
border foam applied. Pt tolerating turning and repositioning. Call torres within reach.
[2025-04-06] MEDS: ROXICODONE 5 MG PO ×2 (05:22→13:54)
[2025-04-06 05:48] LABS: Hematocrit 31.5 % (39.0-52.0); Hemoglobin 9.8 g/dL (13.0-18.0); Mean Corp Hgb Conc. 31.1 g/dL (33.0-37.0); Mean Corpuscular Volume 86.8 fL (80.0-94.0); Platelet Count 267 10^3/uL (130-400); Red Cell Dist. Width 18.0 % (11.5-14.5)
[2025-04-06 06:09] LABS: ALT (SGPT) 17 U/L (0-50); AST (SGOT) 21 U/L (17-59); Albumin 2.8 g/dl (3.5-5.0); Alkaline Phosphatase 85 U/L (38-126); Blood Urea Nitrogen 22 mg/dl (9-20); Calcium 7.5 mg/dl (8.4-10.2); Carbon Dioxide 29 mmol/L (22-30); Chloride 104 mmol/L (98-107); Estimated Creatinine Clearance 75 ml/min; Glucose 115 mg/dl (70-99); Potassium 3.7 mmol/L (3.5-5.1); Sodium 138 mmol/L (135-145); Total Protein 5.5 g/dl (6.3-8.2); eGFR > 60.00
[2025-04-06 06:23] LABS: Troponin I 0.035 ng/ml
--- NOTE | 2025-04-06 07:49 | W.PN.HOSP.TC ---
Today's Communication/Plan
-
Blood culture positive for Staphylococcus species. Other blood culture no growth at 24 hours. Pending repeat blood culture. Per ID, switched to cefepime from Zosyn, and discontinued vancomycin due to negative MRSA. ID consulted.
Sputum culture pending collection.
S/p IV Lasix 20 mg x 1
Anticipated thoracentesis not performed today due to pleural effusion being too small for the benefits to outweigh the risks of thoracentesis.
Cardiology
� Eliquis 2.5 mg p.o. twice daily. Decreased from 5 mg p.o. daily
� Amiodarone 200 mg p.o. daily started 04/06/2025
� Likely secondary to oral furosemide tomorrow morning
Assessment / Plan
Assessment / Plan
IMPRESSION:
Mr. Adolfo Higgins is a 79yoM with a PMH notable for stage IV lung carcinoma (Keytruda, s/p radiotherapy), paroxysmal A-fib (Eliquis), right shoulder arthritis (sp ORIF, on oxycodone, fentanyl, ibuprofen), orthostatic hypotension (midodrine), who
presents from [facility] with acute on chronic productive cough and hypoxia.
PLAN:
#Sepsis�pneumonia
- hypoxia, productive cough, fever x 1. Moderate bibasilar consolations concerning for pneumonia on CT. Multifactorial: Pneumonia, heart failure, immune related pneumonitis
� Blood cultures: 1 culture positive for Staphylococcus species. Other culture no growth to date. Repeat blood culture pending
� Cefepime 04/06/2025� . Vancomycin and Zosyn 04/05/2025.
- Per ID, switched to cefepime from Zosyn, and discontinued vancomycin due to negative MRSA on 04/06/25.
#Bilateral pleural effusions
Moderate right pleural effusion and small left pleural effusion on CT
� BiPAP weaned to 1.5 L NC
� Anticipated thoracentesis of moderate right pleural effusion not performed due to the pleural effusion being too small to outweigh the risks at this
� Pulmonology consult
#A-fib with RVR
� Eliquis 2.5 mg p.o. twice daily. Decreased from 5 mg p.o. daily
� Amiodarone 200 mg p.o. daily started 04/06/2025
� Beta radha discontinued previously due to soft blood pressures
#Chronic HFpEF
� Echo 02/23/25: Mildly dilated aortic root. LV EF 55 to 60%. Normal LV size and function. Normal regional wall motion
� Daily weights, I/O
� BNP 3670 positive
� Troponin I elevated at 0.035; history of elevated troponin I
Cardiology consult
- IV Lasix 20 mg 04/06/2025. Will try to continue Lasix if blood pressure allows. Was discontinued previously due to orthostasis
� If patient does not convert back to sinus rhythm or rate presents to control, consider amiodarone
� Hold beta radha given orthostasis
# NSCLC, stage IV
#Widespread osseous metastatic disease.
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 Bilateral pulmonary nodules, likely metastases
� Keytruda infusion every 3 weeks. Finished radiotherapy.
� Follows with Dr. Sandoval
� Xgeva every 6 weeks to prevent pathologic fractures
� Calcium carbonate 1000 mg p.o. twice daily, vitamin D 50 mcg p.o. twice daily
� Hematology�oncology consult: Continue outpatient lung cancer therapy
#Orthostatic hypotension
He took sodium chloride p.o. at home for hyponatremia and hypotension
� Midodrine 10 mg p.o. 3 times daily
#Right shoulder pain
S/p ORIF
� Oxycodone 5 mg p.o. every 6 as needed, fentanyl patch 25 mcg every 72 hours, gabapentin 300 mg p.o. nightly
� Holding ibuprofen due to risk of increased bleeding in combination with Eliquis
#Malnutrition
� Calcium 7.5, albumin 2.8, calcium corrected to albumin is 8.5 (04/06/2025)
#COPD: Continue home inhalers: Albuterol, fluticasone salmeterol
#Depression: Mirtazapine 15 mg p.o. nightly
#Hyperlipidemia: Continue home rosuvastatin 40 mg p.o. every afternoon
#Glaucoma: Latanoprost, Brinzolamide/brimonidine
CODE STATUS: DNR and DNI
DVT prophylaxis: Eliquis 2.5 mg p.o. twice daily
Diet: Regular
Dispo: PT OT consult. Came from [facility]
Anticipated Discharge: > 48 hours
Subjective/Interval History
-
Date of Service: April 06, 2025
Patient stated he was not short of breath. He continues to have a cough. Was able to produce a sputum sample. He had a restful night.
Objective Data
-
Labs:
Laboratory Results
04/06/25
05:31
WBC 5.0
Hgb 9.8 L
Hct 31.5 L
Plt Count 267
Sodium 138
Potassium 3.7
Chloride 104
Carbon Dioxide 29
BUN 22 H
Creatinine 0.5 L
Glucose 115 H
Calcium 7.5 L
Total Bilirubin 0.6
AST 21
ALT 17
Alkaline Phosphatase 85
Vital Signs:
Vital Signs
Temp Pulse Resp BP Pulse Ox
98.5 F 90 19 115/67 96
04/06/25 03:01 04/06/25 06:00 04/06/25 06:00 04/06/25 06:00 04/06/25 05:00
Review of Systems
-
History Source: Patient
Constitutional: Reports No Symptoms
EENT: Reports No Symptoms Reported
Respiratory: Reports Cough
Cardiac: Reports No Symptoms
Abdomen/GI: Reports No Symptoms
Musculoskeletal: Reports Joint Pain (Right shoulder very tender to palpation.)
Skin: Reports No Symptoms
Neuro: Reports No Symptoms
Physical Exam
-
General: Well Developed, Well Nourished, No Apparent Distress and Comfortable
HEENT: Normocephalic, Atraumatic, Moist Mucous Membranes, Anicteric, Nose Appears Normal and Ears Appear Normal
Cardiac: Regular Rhythm and S1/S2
GI: Soft, Nontender, Nondistended, Normal Bowel Sounds and Flat
Musculoskeletal: No Clubbing, No Cyanosis and No Edema
Skin: Warm and Dry
Neuro: Awake, Alert, Oriented, Tremors (Chronic), Nonfocal/Grossly Intact and Central Nerve's Intact
Psych: Calm
Data Reviewed
-
Total Time Spent with Patient (in minutes): 35
Diagnostic Radiology: Report Reviewed by me
CT Scan: Report Reviewed by me
Ultrasound: Report Reviewed by me
Medical Tests (Nuc Med, Echo etc): Report Reviewed by me
Labs: Labs Reviewed by me
[2025-04-06] MEDS: ADVAIR HFA 115/21 MCG INHALER 2 PUFF INH ×2 (08:06→19:58)
--- NOTE | 2025-04-06 08:10 | PTCARENOTE ---
Pt is AAOx3 Pt in afib with irr HR. Lungs are coarse. Generalized weakness #[address] Pt states he is hungry
[2025-04-06 08:46] LABS: Absolute Neutrophils -Man Diff 4.5 10^3/uL (1.4-6.5); Total Cells Counted 100
[2025-04-06 08:48] LABS: Anisocytosis 1+; Hypochromasia 1+; Normal RBC Morphology No; Platelets Checked Yes; Rouleaux Moderate
--- NOTE | 2025-04-06 08:53 | VNURNOTE ---
Chart reviewed. Patient is current with [facility]. Will continue to follow hospital course and DC plans.
--- NOTE | 2025-04-06 09:05 | PTCARENOTE ---
Pt to IR for Thoracentesis.
--- NOTE | 2025-04-06 09:46 | W.PN.UPDATE ---
Update Note
Progress Note Update
I saw and evaluated the patient. I reviewed the resident�s note and agree with findings and plan as documented in the resident�s note.
Gen: NAD, Awake and alert, appears chronically ill and malnourished/cachectic
Eyes: EOMI, PERRLA, no scleral icterus.
Neck: supple.
CV: remains irreg/irrage, +S1/S2, no m/r/g.
Resp: coarse BS B/L (mostly upper airway transmission)
Abd: +BS, soft, NT, ND
Skin: No rashes. No LE edema
Neuro: CN 2-12 intact, non-focal.
Psych: Normal mood and affect.
04/05/25 08:48 Blood/Venous Blood Culture - Preliminary
Staphylococcus species
04/05/25 08:48 Blood/Venous Gram Stain - Final
04/05/25 08:48 Nasal Swab Influenza Types A & B (MELYSSA) - Final
Negative for Influenza A & B, NAAT
Negative results must be combined with clinical observations
and patient history.
Nucleic Acid Amplification test (NAAT)performed on the
[employer] platform.
CTA chest: No PE. Moderate R pleural effusion. Small L pleural effusion. New. Moderate bibasilar consolidation concerning for pneumonia. Left greater than right. New. Stable band of scar tissue versus treated neoplasm in the right upper lobe. Stable
known mild osseous metastasis. Too small to characterize hypodense hepatic lesions likely small cysts or hemangiomas. Stable right-sided pulmonary nodules. Mild emphysematous disease.
Severe sepsis and acute hypoxemic respiratory failure due to B/L PNA:
-Patient received 1 L normal saline in the ER. I would not give this patient the full 30cc/kg bolus due to history of congestive heart failure, stable blood pressure, pleural effusions concerning for acute CHF.
-Procalcitonin is noted but should not have been ordered in a patient with malignancy, it is not interpretable
-on RA at baseline, was on 4L NC O2 on admission (note was on 6L NC O2 at IN 1 day [employer]), now weaned to 2L NC O2
-severe sepsis a/e/b tachypnea, fever (temp 100.3 F constitutes a fever in an immunocompromised patient), tachycardia, source PNA
-B/L pleural effusions are concerning for acute on chronic heart failure with preserved ejection fraction. In the setting of severe sepsis due to pneumonia, no further IV fluids were given after the ER.
-cardiology following
-cont Lasix 20mg IV daily, daily wts, I/Os
-COVID/Flu NEG
-cont empiric Vanco/Zosyn. Note, there was an error in ordering Vanco/Zosyn on admission (appears to have been related to abx likely not being ordered through manage transfer). This error has been disclosed to the pt and the pt's son over the phone.
-follow BCxs (staph as above). Check MRSA PCR and repeat BCxs before today's Vanco/Zosyn dosing (discussed with ID pharmacist).
-despite imaging with mod R pleural effusion there is not enough fluid to tap as per IR
-c/s ID and pulm
PAF with RVR:
-RVR due to severe sepsis
-in the recent past pt's BB was stopped due to syncope, bradycardia, orthostatic hypotension
-cont Eliquis
Acute on chronic HFpEF:
-was on Lasix in the past which was stopped due to orthostatic hypotension
-possible acute on chronic HFpEF as above
-cont IV Lasix
-daily wts, I/Os
Other problems:
Orthostatic hypotension: cont Midodrine, place abd binder/TEDs
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 Sandoval outpt
Chronic Pain with chronic opioid use with dependence: due to bone metastasis/cancer related pain, cont fentanyl patch/oxycodone/gabapentin, cont bowel regimen
COPD without Acute Exacerbation: cont Striverdi/Spiriva
TASIA: BIPAP HS
Chronic right shoulder pain: due to severe OA and rotator cuff tear. Note, pt had been on NSAIDs in the setting of being on Eliquis due to severe pain refractory to narcotics, Neurontin, etc after extensive discussions with pain management and
cardiology
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
DNR/I
I had a very antionette conversation with the patient's over the phone on 04/05/25. I explained that due to his overwhelming burden of pathology notable for orthostatic hypotension, stage IV non-small cell lung carcinoma with bone mets,
deconditioning, acute on chronic heart failure with preserved ejection fraction, in the setting of recurrent hospitalizations that his overall prognosis is poor. I did encourage her to discuss with her as to whether he would want to have
continued, aggressive, treatment oriented he care or whether he would be interested in symptom only oriented care.
Pt's son updated at length over the phone on 04/06/25. Of note, as per discussion with the pt's son the pt's lung CA is well managed with Keytruda. With respect to yesterday's conversation that initiate GOC It would be reasonable at this point to put
that on the 'back burner' for now. Will c/s ONC for input on prognosis from a lung CA standpoint. It may also be beneficial to have a multidisciplinary discussion [facility] ONC/cards during this hospitalization.
Total time spent on today's encounter was 60 minutes which included time spent in counseling the patient/family regarding diagnosis and treatment plan as listed above, goals of care, and symptom management. Case was discussed with nursing staff,
specialists, and care coordinators/case management. All labs and imaging personally reviewed by me. Remainder the time spent in detailed review of previous records, lab data, imaging, and other medical provider documentation.
[2025-04-06] MEDS: OSCAL CAL 500 1000 MG PO ×2 (10:18→20:10)
--- NOTE | 2025-04-06 10:18 | W.PN.CARDCBS ---
Today's Communication / Plan
-
Ongoing IV diuresis
Likely thoracentesis today
Impression / Plan
-
PCP: Dr. Moncho Jimenez
Literacy Consultant: Dr. Dempsey
Impression:
Admitted with acute hypoxic respiratory failure/febrile illness with B/L PNA 04/05/25
B/L PNA
Acute HFpEF
A-fib with RVR
Known paroxysmal atrial fibrillation
Chronic OAC with Eliquis
Orthostatic hypotension
Metastatic NSCLC
COPD/emphysema
SVC syndrome, currently receiving radiation�improvement after radiation of upper extremity edema
Thyroid nodules
BPH
Tobacco abuse
Thoracic aortic aneurysm 4.[address] in [address] of chest
Diverticulitis with diverticular abscess with colon resection
Chronic neck and back pain
Former alcoholic
DNR code status
ECHO 11/18/24: EF 55-60%, normal RWM, mild TR, trivial pericardial effusion, dilated aortic root
ECHO 02/23/2025: LV ejection fraction 55 to 60%. No regional wall motion abnormality. Normal RV size and systolic function. Trace mitral regurgitation. Trileaflet mildly sclerotic aortic valve with trace aortic regurgitation. Mild tricuspid
regurgitation. Estimated pulmonary artery pressure 29 mmHg assuming a right atrial pressure 3 mmHg. Trivial pericardial effusion. Mildly dilated aortic root: 4.1 cm at sinus of Valsalva. Mildly dilated proximal ascending aorta, 4.1 cm.
Plan:
-Patient presented with hypoxic respiratory distress and fever in immunocompromise patient. They received 1 L normal saline in the ED, CTA chest negative for PE with moderate right pleural effusion and small left pleural effusion as well as
bilateral basilar consolidations concerning for pneumonia, left greater than right.
-Hospitalist attending note reviewed by me on 04/06/2025. Patient originally given IVF's for sepsis and is being managed empirically with vancomycin and Zosyn for presumed PNA. Blood cultures staph species in 1 sample from 04/05/2025 AM, but
cultures drawn later in the day on 04/05/2025 are without growth thus far.
-Patient was negative for influenza and COVID
-From a cardiac standpoint there is concern for acute HFpEF. EF was 55 to 60% by echo 02/23/2025 with minimal valve disease.
-Patient ordered Lasix 20 mg IV daily and weight is down as much as 5 lbs depending on accuracy of bed scale weights that are recorded in VS and were reviewed by me on 04/06/2025
-Patient was not taking a diuretic prior to admission
-Oxygen requirements have improved from 4 L to 2 L with diuresis
-CT chest from 04/05/2025 was reviewed by me on 04/06/2025 and there is a moderate size right pleural effusion, it appears there is now chest U/S pending and there is the possibility of thoracentesis.
-Patient was not on any GDMT prior to admission and GDMT will be difficult due to chronic hypotension, outpatient dose of midodrine 10 mg TID has been continued.
-Could consider addition of SGLT2 inhibitor, but currently dealing with PNA in an immunocompromise patient so we will defer to outpatient management
-Patient remains in A-fib with RVR since admission and has known paroxysmal A-fib. HR controlled without AV tegan blockers, if HR becomes difficult to control could consider using amiodarone as adjunct rate control due to orthostasis
Progress Note - Literacy Consultant
Subjective
Date of Service: April 06, 2025
Feels a bit better, thinks he is probably going to have a thoracentesis
Objective
Labs:
04/06/25 05:31
04/06/25 05:31
Labs
Hgb 9.8 g/dL (13.0-18.0) L 04/06/25 05:31
Hct 31.5 % (39.0-52.0) L 04/06/25 05:31
Plt Count 267 10^3/uL (130-400) 04/06/25 05:31
Sodium 138 mmol/L (135-145) 04/06/25 05:31
Potassium 3.7 mmol/L (3.5-5.1) 04/06/25 05:31
BUN 22 mg/dl (9-20) H 04/06/25 05:31
Creatinine 0.5 mg/dL (0.7-1.3) L 04/06/25 05:31
Glucose 115 mg/dl (70-99) H 04/06/25 05:31
Troponins
04/06/25
05:31
Troponin I 0.035 H*
Vital Signs and I&O:
Vital Signs
Temp Pulse Resp BP Pulse Ox
98 F 77 16 110/53 98
04/06/25 09:14 04/06/25 09:14 04/06/25 09:14 04/06/25 09:14 04/06/25 09:14
Vital Signs
Temp Pulse Resp BP Pulse Ox
98 F 77 16 110/53 98
04/06/25 09:14 04/06/25 09:14 04/06/25 09:14 04/06/25 09:14 04/06/25 09:14
Physical Exam
Physical Exam
GEN: NAD. AAOx3
LUNGS: 2 L NC. No wheeze
CV: Afib on tele. Irreg irreg, S1/S2, no murmur
ABD: ND
EXT: Trace edema B/L LE
NEURO: Gross non-focal
SKIN: No rash
[2025-04-06] MEDS: SODIUM CHLORIDE 1 GRAM PO ×2 (10:20→20:10)
[2025-04-06] MEDS: VITAMIN D3 (cholecalciferol) 50 MCG PO ×2 (10:22→20:09)
[2025-04-06] MEDS: PROTONIX 40 MG PO (10:22)
[2025-04-06] MEDS: ELIQUIS 5 MG PO (10:22)
[2025-04-06] MEDS: METAMUCIL, KONSYL 1 PACKET PO (10:23)
[2025-04-06] MEDS: MAGNESIUM OXIDE 400 MG PO (10:23)
[2025-04-06] MEDS: HYDROCORTISONE 1% LOTION 1 APPLIC TOPICAL (10:24)
[2025-04-06] MEDS: SANTYL OINTMENT 1 APPLIC TOPICAL (10:25)
--- NOTE | 2025-04-06 11:13 | PHA.VAN.IN ---
Assessment
- Assessment
Renal Function: Appears similar to baseline
Concomitant Antimicrobials: piperacillin/tazobactam
AUC Dosing Plan
- Dosing Variables
Dosing Weight (kg): 66
Dosing CrCl (ml/min): 75-93
Vd coefficient (L/kg): 0.7
Utilized IBW for dosing weight given BMI < 18.5
Utilized CrCl range with TBW and IBW
- Empiric Dosing
Initial / Loading Dose: 1000mg - 04/05 11:15
Maintenance Regimen: Vanc 750mg Q12H starting 04/07 0600
Estimated AUC (mcg*h/mL): 414 - 503
Estimated Peak (mcg*h/mL): 26 - 29.5
Estimated Trough (mcg/ml): 10.6 - 14.2
Estimated Half Life (H): 8.5 - 10.4
Patient likely has undetectable level following single dose of 1g yesterday
Will give 1500mg x1 after repeat blood cultures are collected and start maintenance dosing in the AM
- Monitoring
No levels ordered at this time: consider levels in next few days
Pharmacokinetics Vancomycin I
- -
Patient Age: 79
Patient Sex: Male
Vancomycin Day #: 1
Indication: Pulmonary/Respiratory
Requesting Provider: Dr. Sanchez
Pertinent Antimicrobial Allergies:
no pertinent antibiotic allergies
Height / Weight:
Height 5 ft 7 in
Actual Weight 53.388 kg
IBW in k
Pertinent Past Medical History: BMI ~18, Stage IV NSCLC
- Vital Signs / Lab Results
Temp Pulse Resp BP Pulse Ox
98 F 85 16 94/53 98
04/06/25 09:14 04/06/25 10:20 04/06/25 09:14 04/06/25 10:20 04/06/25 09:14
Lab Results - Hematology
04/05/25 04/06/25
08:48 05:31
WBC 4.8 5.0
Band Neutrophils 16 H
Lab Results - Chemistry
04/05/25 04/06/25
08:48 05:31
BUN 24 H 22 H
Creatinine 0.5 L 0.5 L
Estimated Creat Clear 74 75
Albumin 3.1 L 2.8 L
04/05/25 04/05/25
08:48 12:45
Lactic Acid 2.0 Cancelled
Microbiology Results
04/05/25 09:46 Blood Culture - Preliminary
Blood/Venous No Growth in 24 hours- Final report to follow
04/05/25 08:48 Blood Culture - Preliminary
Blood/Venous Staphylococcus species
Gram Stain - Final
04/05/25 08:48 Influenza Types A & B (MELYSSA) - Final
Nasal Swab Negative for Influenza A & B, NAAT
Negative results must be combined with clinical observations
and patient history.
Nucleic Acid Amplification test (NAAT)performed on the
[employer] platform.
--- NOTE | 2025-04-06 11:19 | W.PN.CARDCBS ---
Today's Communication / Plan
-
Add amiodarone 200 mg twice daily
Reduce Eliquis to 2.5 mg twice daily
Impression / Plan
-
PCP: Dr. Moncho Jimenez
Class 1 Owner Operator: Dr. Dempsey
Impression:
Admitted with acute hypoxic respiratory failure/febrile illness with B/L PNA 04/05/25
B/L PNA
Acute HFpEF
A-fib with RVR
Known paroxysmal atrial fibrillation
Chronic OAC with Eliquis
Orthostatic hypotension
Metastatic NSCLC
COPD/emphysema
SVC syndrome, currently receiving radiation�improvement after radiation of upper extremity edema
Thyroid nodules
BPH
Tobacco abuse
Thoracic aortic aneurysm 4.[address] in 2019
Cor[address] calcification on CT of chest
Diverticulitis with diverticular abscess with colon resection
Chronic neck and back pain
Former alcoholic
DNR code status
ECHO 11/18/24: EF 55-60%, normal RWM, mild TR, trivial pericardial effusion, dilated aortic root
ECHO 02/23/2025: LV ejection fraction 55 to 60%. No regional wall motion abnormality. Normal RV size and systolic function. Trace mitral regurgitation. Trileaflet mildly sclerotic aortic valve with trace aortic regurgitation. Mild tricuspid
regurgitation. Estimated pulmonary artery pressure 29 mmHg assuming a right atrial pressure 3 mmHg. Trivial pericardial effusion. Mildly dilated aortic root: 4.1 cm at sinus of Valsalva. Mildly dilated proximal ascending aorta, 4.1 cm.
Plan:
From a volume standpoint he seems improved. Continue IV furosemide for now, likely transition to oral furosemide in a.m.
He is now back in sinus rhythm, on apixaban. Currently dosed at 5 mg twice daily. Given cachexia, and the fact that he is 6 months away from reduction in dose with an increased bleeding risk with the addition of amiodarone, will reduce Eliquis to
2.5 mg twice daily. He has frequent ectopics. Given that he tolerates atrial fibrillation very poorly, will add low-dose amiodarone after consideration of risks and benefits.
GDMT for HFpEF difficult because of hypotension. At present we will make no alterations.
Progress Note - [employer] 1 Owner Operator
Subjective
Date of Service: April 06, 2025:
Complex 79-year-old man with non-small cell lung cancer metastatic bone on Keytruda. Admitted February 2025 with syncope presumed be vagal. Now admitted with suspected PNA/sepsis and possible superimposed acute on chronic HFpEF with recurrence atrial
fibrillation rapid ventricular response Patient discharge off daily furosemide in February with instructions for PRN dosing for weight gain, etc.
PMH/PSH: non-small cell carcinoma right lung treated with radiation and Keytruda metastatic to bone, orthostasis, PAF, HFpEF, COPD, cachexia, history of SVC syndrome with recent XRT, mildly dilated ascending aorta 4.3 CM, history of alcohol use.,
Hyperlipidemia, hypertension.
Current meds: Rosuvastatin 40 mg a day, apixaban 5 mg twice daily, midodrine 10 mg 3 times daily, vitamin D3, Xalatan eyedrops, magnesium, Remeron 15 mg at bedtime, pantoprazole 40 mg daily, Simbrinza, calcium carbonate, gabapentin 300 nightly,
psyllium, fluticasone, furosemide 20 mg IV daily, fentanyl patch, vancomycin, piperacillin
, Weight is 53.4 kg, down 2.1 kg 94/53, pulse 85, respiratory rate 16, afebrile, cachectic, rhonchi, irregular rate and rhythm, rate controlled, abdomen scaphoid extremities without much edema, pulses palpable
Hemoglobin 9.8, white count 5.0 platelets 267, 16 bands, BUN and creatinine are 22 and 0.5, troponin is 0.035, proBNP is 3670 was 3960 in October
Echo 10/2024: EF 55-60%, mild TR
Chest x-ray: elevated right him he diaphragm, effusion, rate mid-lung mass
ECG: a fib, RVR, left anterior fasicular block, PVCs versus aberrant ventricular conduction, possible IMI, possible ALMI
Telemetry: Now in sinus rhythm with frequent PACs, first-degree AV block, occasional blocked PACs
Objective
Labs:
04/06/25 05:31
04/06/25 05:31
Labs
Hgb 9.8 g/dL (13.0-18.0) L 04/06/25 05:31
Hct 31.5 % (39.0-52.0) L 04/06/25 05:31
Plt Count 267 10^3/uL (130-400) 04/06/25 05:31
Sodium 138 mmol/L (135-145) 04/06/25 05:31
Potassium 3.7 mmol/L (3.5-5.1) 04/06/25 05:31
BUN 22 mg/dl (9-20) H 04/06/25 05:31
Creatinine 0.5 mg/dL (0.7-1.3) L 04/06/25 05:31
Glucose 115 mg/dl (70-99) H 04/06/25 05:31
Troponins
04/06/25
05:31
Troponin I 0.035 H*
Vital Signs and I&O:
Vital Signs
Temp Pulse Resp BP Pulse Ox
36.6 C 85 16 94/53 98
04/06/25 09:14 04/06/25 10:20 04/06/25 09:14 04/06/25 10:20 04/06/25 09:14
Vital Signs
Temp Pulse Resp BP Pulse Ox
36.6 C 85 16 94/53 98
04/06/25 09:14 04/06/25 10:20 04/06/25 09:14 04/06/25 10:20 04/06/25 09:14
Physical Exam
Physical Exam
See above
[2025-04-06] MEDS: ZOSYN 50 IV (11:33)
--- NOTE | 2025-04-06 11:41 | CON.ONC ---
Consultation
-
Date Consultation Requested: 04/05/25
Date Consultation Performed: 04/06/25
Requesting Provider: Constance Mclean MD, Resident
Performing Provider: Dr. Higgins
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
Impression
Impression
Non-small cell lung cancer s/p chemo/radiation currently on Keytuda
Pneumonia
Plan
Plan
-Patient is known to [facility] where he follows with Dr. Sandoval and has had good response to Keytuda so far
-Socially he is doing well with good support at home from his and son
-Patient has had several hospitalizations in recent history of many different conditions such as this current hospitalization from pneumonia and others for syncope, dizziness, atrial fibrillation, etc.
-Overall, patient does have a history of complex medical conditions with several hospitalizations. However, his lung cancer continues to have good response to his non-small cell carcinoma. Discussed care with patient today, and we agreed that his
code status of DNR is appropriate, but he should continue to pursue treatment in the outpatient setting for his lung cancer.
-Patient to follow up with [facility] after discharge for further management of his Stage IV Lung cancer
-Will monitor
Patient History
History of Present Illness
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
from [facility] with confusion that began 2 days prior. His oxygen saturation began to drop, and is reported to be as low as the 70s. His O2 requirement increased to 6L, and his longstanding dry cough became productive. A COVID19 test was
done at his halfway, which was negative
In the ED, he was found to have a fever. He received 1L normal saline. CTA of the chest was negative for PE but did show moderate right pleural effusion and small left pleural effusion as well as bilateral basilar consolidations concerning for
pneumonia, L>R. He was started on empiric vancomycin and Zosyn for presumed pneumonia and admitted to the hospital for further management.
Today, patient reports doing well. He does continue to experience a productive cough for clear sputum, but has no chest pain, shortness of breath, abdominal pain, nausea, vomiting or diarrhea. He reports he has good social support at home where he
lives with his and son in a single floor family residence.
Past-Medical/Surgical History
Non-small cell lung cancer s/p chemo/radiation currently on Keytuda
Orthostatic Hypotension
History of Diverticulitis
Appendectomy
Tonsillectomy
Right shoulder arthritis
Paroxysmal atrial fibrillation on Eliquis
Patient Medication
�Medication �Instructions �Recorded �Confirmed �Last Taken �Type
brinzolamide 1 %-brimonidine 0.2 % 1 drp RIGHT EYE BID Eye Condition 04/09/23 04/05/25 05/06/24 History
eye drops,suspension (Simbrinza)
zvipzaztvykh-zhvrhnkz-pdmlor 1 tab PO DAILY Supplement 04/09/23 04/05/25 03/17/24 History
tablet (Theratrum Complete 50 Plus
with Lutein tablet)
apixaban 5 mg tablet (Eliquis) 5 mg PO BID #60 tabs 04/10/23 04/05/25 05/06/24 Rx
bisacodyl 10 mg rectal suppository 10 mg AR DAILYPRN PRN if no bm x 3 05/14/24 04/05/25 Unknown History
(Dulcolax (bisacodyl)) days
oxycodone 5 mg tablet 5 mg PO Q6HPRN PRN severe pain 05/14/24 04/05/25 Unknown History
denosumab 120 mg/1.7 mL (70 mg/mL) 120 mg SC Q4W Cancer ##0 11/18/24 04/05/25 Unknown History
subcutaneous solution
gabapentin 300 mg capsule 300 mg PO HS Neurological Condition 11/18/24 04/05/25 02/28/25 08:00 History
psyllium 1 packet PO DAILY Constipation 11/18/24 04/05/25 Unknown History
sennosides 8.6 mg-docusate sodium 2 tab-cap PO BIDPRN PRN 11/18/24 04/05/25 Unknown History
50 mg tablet (Senokot-S) constipation
calcium carbonate 1,000 mg PO BID Supplement ##0 01/20/25 04/05/25 02/28/25 08:00 History
fentanyl 12 mcg/hr transdermal 1 patch transdermal Q72H severe 01/20/25 04/05/25 Unknown History
patch pain
fentanyl 25 mcg/hr transdermal 1 patch transdermal Q72H severe 01/20/25 04/05/25 Unknown History
patch Pain
sodium phosphates 19 gram-7 118 ml AR DAILYPRN PRN IF NO BM X4 02/21/25 04/05/25 Unknown History
gram/118 mL enema (Fleet Enema) DAYS
midodrine 5 mg tablet 10 mg (2 x 5 mg) PO 03/10/25 04/05/25 Unknown Rx
TID@0800,1300,1800 Blood pressure
#90 tabs
albuterol sulfate 90 mcg/actuation 2 puff inhalation R Q6HPRN PRN sob 04/05/25 04/05/25 Unknown History
aerosol inhaler
cholecalciferol (vitamin D3) 50 50 mcg PO BID 04/05/25 04/05/25 Unknown History
mcg (2,000 unit) capsule (Vitamin
D3)
collagenase clostridium histo. 250 1 applic topical DAILY 04/05/25 04/05/25 Unknown History
unit/gram topical ointment (Santyl)
fluticasone 113mcg-salmeterol 1 inh inhalation R BID 04/05/25 04/05/25 Unknown History
14mcg/actuation breath act,powder
sensor (AirDuo Digihaler)
hydrocortisone 1 % lotion 1 applic topical DAILY 04/05/25 04/05/25 Unknown History
ibuprofen 200 mg tablet (Advil) 400 mg PO T21HGCH PRN mild pain 04/05/25 04/05/25 Unknown History
latanoprost 0.005 % eye drops 1 drp BOTH EYES HS 04/05/25 04/05/25 Unknown History
lidocaine 4 % topical cream 1 applic topical Q4HPRN PRN mild 04/05/25 04/05/25 Unknown History
pain
magnesium hydroxide 400 mg/5 mL 2,400 mg PO HSPRN PRN if no bm by 04/05/25 04/05/25 Unknown History
oral suspension (Milk of Magnesia) 2nd day
magnesium oxide 400 mg PO DAILY 04/05/25 04/05/25 Unknown History
mirtazapine 15 mg tablet (Remeron) 15 mg PO HS 04/05/25 04/05/25 Unknown History
pantoprazole 40 mg tablet,delayed 40 mg PO DAILY 04/05/25 04/05/25 Unknown History
release (Protonix)
pembrolizumab 25 mg/mL intravenous 200 mg IV Q21D 04/05/25 04/05/25 Unknown History
solution (Keytruda)
rosuvastatin 40 mg tablet (Crestor) 40 mg PO QPM 04/05/25 04/05/25 Unknown History
sodium chloride 1 gram tablet 1,000 mg PO BID 04/05/25 04/05/25 Unknown History
Active Medications
Generic Name Dose Route Start Last Admin
Trade Name Freq PRN Reason Stop Dose Admin
Acetaminophen 650 mg 04/05/25 18:27
Acetaminophen 325 Mg Tablet PO 05/03/25 18:26
Q4HPRN PRN
mild pain/GRIJALVA/temp> 100.4F
Albuterol 2 puff 04/05/25 14:37
Albuterol Hfa [90 Mcg/Dose] Inhaler INH
R Q6HPRN PRN
sob
Protocol
Amiodarone HCl 200 mg 04/06/25 20:00
Amiodarone 200 Mg Tablet PO 05/04/25 19:59
BID RAFAEL
Apixaban 2.5 mg 04/06/25 11:27
Apixaban (Eliquis) 5 Mg Tablet PO 05/03/25 19:59
BID RAFAEL
Bisacodyl 10 mg 04/05/25 14:37
Bisacodyl 10 Mg Rectal Suppository RECTAL 05/03/25 14:36
DAILYPRN PRN
if no bm x 3 days
Bisacodyl 10 mg 04/05/25 18:27
Bisacodyl 10 Mg Rectal Suppository RECTAL 05/03/25 18:26
[id number] PRN
constipation
Brinzolamide/Brimonidine Tartrate 1 drop 04/05/25 20:00 04/06/25 10:25
Brinzolamide 1%/Brimonidine 0.2% (Ophth Susp) 8 Ml Bottle RIGHT EYE 05/03/25 19:59 1 drop
BID RAFAEL Administration
Calcium Carbonate 1,000 mg 04/05/25 20:00 04/06/25 10:18
Calcium Carbonate 500 Mg Tablet PO 05/03/25 19:59 1,000 mg
BID RAFAEL Administration
Cholecalciferol 50 mcg 04/05/25 20:00 04/06/25 10:22
Cholecalciferol (Vitamin D3) 50 Mcg Tablet (2,000 Units) PO 05/03/25 19:59 50 mcg
BID RAFAEL Administration
Collagenase 1 applic 04/06/25 08:00 04/06/25 10:25
Collagenase Ointment 2.5 Gram Jar TOPICAL 05/04/25 07:59 1 applic
DAILY RAFAEL Administration
Fentanyl 1 patch 04/09/25 00:00
Fentanyl 25 Mcg/Hr Patch TRANSDERM 04/23/25 00:00
Q72H RAFAEL
Fentanyl 1 patch 04/09/25 00:00
Fentanyl 12 Mcg/Hr Patch TRANSDERM 04/23/25 00:00
Q72H RAFAEL
Furosemide 20 mg 04/07/25 08:00
Furosemide 20 Mg Tablet PO 05/05/25 07:59
DAILY RAFAEL
Gabapentin 300 mg 04/05/25 22:00 04/05/25 21:20
Gabapentin 300 Mg Capsule PO 05/03/25 21:59 300 mg
HS RAFAEL Administration
Hydrocortisone 1 applic 04/06/25 08:00 04/06/25 10:24
Hydrocortisone 1% (Lotion) 120 Ml Bottle TOPICAL 05/04/25 07:59 1 applic
DAILY RAFAEL Administration
Piperacillin Sod/Tazobactam Sod 3.375 gram in 50 mls @ 100 mls/hr 04/06/25 10:00 04/06/25 11:33
Zosyn IV 50 mls
Q6H RAFAEL Administration
Vancomycin HCl 750 mg in 150 mls @ 150 mls/hr 04/07/25 06:00
Vancocin IV
Q12H RAFAEL
Protocol
Vancomycin HCl 1,500 mg/ 530 mls @ 353.333 mls/hr 04/06/25 13:00
Sodium Chloride IV 04/06/25 14:29
ONCE ONE
Latanoprost 1 drop 04/05/25 22:00 04/06/25 00:17
Latanoprost 0.005% (Ophthalmic Solution) 2.5 Ml Bottle BOTH EYES 05/03/25 21:59 1 drop
HS RAFAEL Administration
Lidocaine 1 applic 04/05/25 14:37
Lidocaine 4% Cream/Tegaderm Dressing 5 Gram Tube TOPICAL 05/03/25 14:36
Q4HPRN PRN
mild pain
Magnesium Hydroxide 30 ml 04/05/25 14:37
Milk Of Magnesia 30 Ml Cup PO 05/03/25 14:36
HSPRN PRN
if no bm by 2nd day
Magnesium Oxide 400 mg 04/06/25 08:00 04/06/25 10:23
Magnesium Oxide 400 Mg Tablet PO 05/04/25 07:59 400 mg
DAILY RAFAEL Administration
Midodrine 10 mg 04/05/25 18:00 04/06/25 10:20
Midodrine 5 Mg Tablet PO 05/03/25 17:59 10 mg
TID@0800,1300,1800 RAFAEL Administration
Mirtazapine 15 mg 04/05/25 22:00 04/05/25 21:20
Mirtazapine 15 Mg Regular Release Tablet PO 05/03/25 21:59 15 mg
HS RAFAEL Administration
Oxycodone HCl 5 mg 04/05/25 14:37 04/06/25 05:22
Oxycodone 5 Mg Regular Release Tablet PO 04/19/25 14:36 5 mg
Q6HPRN PRN Administration
severe pain
Pantoprazole Sodium 40 mg 04/06/25 08:00 04/06/25 10:22
Pantoprazole 40 Mg Delayed Release Tablet PO 05/04/25 07:59 40 mg
DAILY RAFAEL Administration
Patch Removal 0 patch 04/06/25 09:00 04/06/25 10:26
Remove Fentanyl Patch REMOVE 04/20/25 08:59 Not Given
Q72H RAFAEL
Polyethylene Glycol 17 grams 04/05/25 18:27
Polyethylene Glycol Powder 17 Grams Packet PO 05/03/25 18:26
DAILYPRN PRN
constipation
Psyllium Hydrophilic Mucilloid 1 packet 04/06/25 08:00 04/06/25 10:23
Psyllium Packet PO 05/04/25 07:59 1 packet
DAILY RAFAEL Administration
Rosuvastatin Calcium 40 mg 04/05/25 18:00 04/05/25 20:06
Rosuvastatin (Crestor) 20 Mg Tablet PO 05/03/25 17:59 40 mg
QPM RAFAEL Administration
Fluticasone/Salmeterol 2 puff 04/05/25 20:00 04/06/25 08:06
Advair Hfa 115/21 Inhaler INH 05/03/25 19:59 2 puff
R BID RAFAEL Administration
Senna/Docusate Sodium 2 tablet 04/05/25 14:37
Docusate W/Senna (Page-Colace) Tablet PO 05/03/25 14:36
BIDPRN PRN
constipation
Senna/Docusate Sodium 1 tablet 04/05/25 18:27
Docusate W/Senna (Page-Colace) Tablet PO 05/03/25 18:26
BIDPRN PRN
constipation
Sodium Chloride 1 gram 04/05/25 20:00 04/06/25 10:20
Sodium Chloride 1 Gram Tablet PO 05/03/25 19:59 1 gram
BID RAFAEL Administration
Review of Systems
-
History Source: Patient
EENT: Denies Decreased Vision
Respiratory: Reports Cough; Denies Trouble Breathing or Wheezing
Cardiac: Denies Chest Pain, Diaphoresis or Palpitations
GI: Denies Abdominal Pain, Nausea, Vomiting, Diarrhea or Constipated
Musculoskeletal: Reports Joint Pain (Right shoulder, chronic)
Skin: Denies Itching or Rash
Neuro: Denies Dizzy, Headache or Weakness
Physical Exam
-
General: Well Developed, No Apparent Distress, Comfortable and Appears Chronically Ill
Cardiology: S1, S2, Irregular Rate/Rhythm, No Murmur and Other
Pulmonary: Other (Patient currently on supplemental oxygen)
Neurology: No Word Finding Difficulty
Skin: Warm and Dry
Psych: Calm and Intact Judgement/Insight
Labs
Lab Results
WBC 5.0 10^3/uL (4.8-10.8) 04/06/25 05:31
RBC 3.63 10^6/uL (4.70-6.10) L 04/06/25 05:31
Hgb 9.8 g/dL (13.0-18.0) L 04/06/25 05:31
Hct 31.5 % (39.0-52.0) L 04/06/25 05:31
MCV 86.8 fL (80.0-94.0) 04/06/25 05:31
MCH 27.0 pg (27.0-31.0) 04/06/25 05:31
MCHC 31.1 g/dL (33.0-37.0) L 04/06/25 05:31
RDW 18.0 % (11.5-14.5) H 04/06/25 05:31
Plt Count 267 10^3/uL (130-400) 04/06/25 05:31
MPV 9.5 fL (7.4-10.4) 04/06/25 05:31
Abs Immat Gran (auto) 0.0 10^3/uL (0-0.05) 04/05/25 08:48
Absolute Neuts (auto) 4.2 10^3/uL (1.4-6.5) 04/05/25 08:48
Absolute Lymphs (auto) 0.2 10^3/uL (1.2-3.4) L 04/05/25 08:48
Absolute Monos (auto) 0.4 10^3/uL (0.1-0.6) 04/05/25 08:48
Absolute Eos (auto) 0.0 10^3/uL (0-0.7) 04/05/25 08:48
Absolute Basos (auto) 0.0 10^3/uL (0-0.2) 04/05/25 08:48
Immature Gran % 0.4 % (0-0.5) 04/05/25 08:48
Neutrophils % 87.5 % (42.2-75.2) H 04/05/25 08:48
Lymphocytes % 4.2 % (20.5-51.1) L 04/05/25 08:48
Monocytes % 7.5 % (1.7-9.3) 04/05/25 08:48
Eosinophils % 0.0 % (0-6) 04/05/25 08:48
Basophils % 0.4 % (0-2) 04/05/25 08:48
Creatinine 0.5 mg/dL (0.7-1.3) L 04/06/25 05:31
Vital Signs
Vital Signs
Temp Pulse Resp BP Pulse Ox
98 F 85 16 94/53 98
04/06/25 09:14 04/06/25 10:20 04/06/25 09:14 04/06/25 10:20 04/06/25 09:14
[2025-04-06] MEDS: PACERONE 200 MG PO ×2 (11:44→20:10)
[2025-04-06] MEDS: VANCOCIN 530 MG IV (11:58)
[2025-04-06 12:03] LABS: Nucleated Red Blood Cells % 0 % (-)
--- NOTE | 2025-04-06 12:27 | CM ---
Initial Assessment Completed by SABINO Gavin.
Patient lives with is [facility] in a 1 level house with 2 steps to enter. Patient uses multiple devices:
-Single Cane
-Rolling Walker
-Rollator
-Shower Seat
-Commode
-CPAP.
PCP: Dr. Jimenez Fitzpatrick
Pharmacy: [facility]
Patient had [facility] in the past as well as PT with them. Patient was just at [facility] in this area, said that he stayed there about 30 days, and what they are feeling is that they would want to try home and not SNF, but undecided.
PLAN: Likely Home ith VN/PT vs. SNF
--- NOTE | 2025-04-06 13:59 | CON.ID ---
Consultation
-
Date/Time Consultation Requested: 04/06/2025 1106
Date/Time Consultation Performed: 04/06/2025 1350
Requesting Provider: Dr. Sanchez
Performing Provider: Dr. Barnard
Reason for Consultation: PNA, sepsis
Chief Complaint / Past History
History of Present Illness
Adolfo Higgins is a 79-year-old male with a significant past medical history of non-small cell lung cancer with history of chemo and radiation, currently on hormone therapy being evaluated at the request of Dr. Sanchez in regards to pneumonia.
History is obtained from chart review, along with patient interview.
The patient recently was admitted to [facility] from through 03/10/2025, during which time he was treated for paroxysmal atrial fibrillation, and underwent workup for generalized weakness/fatigue and confusion. During his
hospitalization he was evaluated and treated for orthostatic hypotension.
He presented back to [place] from the alf secondary to an ongoing chronic, but slightly worse and productive cough, along with hypoxemia. According to reviewed notes the patient appeared confused over the prior 24 hours, and O2 sats
dropped into the 70s on pulse ox. COVID testing at the alf was found to be negative. At presentation he was found to have a low-grade temperature transiently. He did not have a leukocytosis, but did have a left shift on CBC. A CT of the
chest revealed moderate bibasilar consolidation concerning for possible pneumonia. Blood cultures obtained at the time of admission are positive for a staph species. Infectious Diseases is asked to comment upon further antimicrobial management.
At this time he admits that the cough has been worse for approximate 1-1/2 weeks. He denies any fever other than on the day of admission, which was low-grade. He notes ongoing sputum production which is berg in color. He reports occasional
shortness of breath. He denies any nausea or vomiting. He denies any pain except chronic discomfort in the right shoulder.
Past History
Additional Past Medical History:
NSCLCa (s/p chemo/XRT); currently on Keytruda
HTN
Diverticulitis
Additional Past Surgical History:
Appendectomy
Wrist surgery
Tonsillectomy
Allergy History:
levetiracetam (From [facility]) Adverse Reaction (Severe, Verified 04/05/25 09:08)
Fatigue
acetaminophen Adverse Reaction (Intermediate, Verified 04/05/25 09:08)
LFT abnormalities
Hayfever Allergy (Uncoded 04/05/25 09:08)
Sneezing, watery/itchy eyes, stuffy nose
Medications Reviewed: Yes
Current Antibiotics:
Vancomycin (dosing per pharmacy)
Zosyn 3.375 gm IV q.6 hours
Review of Systems
Vital Signs
Temp Pulse Resp BP Pulse Ox
99.3 F 86 22 114/72 97
04/06/25 11:26 04/06/25 13:54 04/06/25 12:00 04/06/25 13:54 04/06/25 12:00
Physical Exam
Physical Exam
Constitutional: No Acute Distress, Comfortable, Chronically Ill, Non-toxic and Other (Generally weak in appearance)
Head: Normocephalic
Eyes: Pupils Equal, Pupils Round, No Conjunctival Hemorrhage and Sclera Anicteric
Oral: No Thrush and No Ulcers
Cardiovascular: S1/S2; Negative S3/S4
Pulmonary: Rhonchi (Scattered throughout) and Non Labored
Gastrointestinal: Soft, Non Tender, Non Distended, Normal Bowel Sounds, No Rebound and No Guarding
Extremities: Negative Edema, Cyanosis, Erythema, Splinter Hemorrhage or Calf Swelling
Musculoskeletal: Negative Joint Swelling
Skin: Warm and Dry; Negative Rash or Jaundice
Neurological: Awake and Alert
Psychological: Calm
Lab / Diagnostic Study Results
04/06/25 05:31
04/06/25 05:31
Abs Immat Gran (auto) 0.0 10^3/uL (0-0.05) 04/06/25 05:31
Absolute Neuts (auto) 4.2 10^3/uL (1.4-6.5) 04/06/25 05:31
Absolute Lymphs (auto) 0.2 10^3/uL (1.2-3.4) L 04/06/25 05:31
Absolute Monos (auto) 0.5 10^3/uL (0.1-0.6) 04/06/25 05:31
Absolute Basos (auto) 0.0 10^3/uL (0-0.2) 04/06/25 05:31
Total Counted 100 04/06/25 05:31
Immature Gran % 0.4 % (0-0.5) 04/06/25 05:31
Neutrophils % 84.8 % (42.2-75.2) H 04/06/25 05:31
Lymphocytes % 4.4 % (20.5-51.1) L 04/06/25 05:31
Monocytes % 9.0 % (1.7-9.3) 04/06/25 05:31
Eosinophils % 0.8 % (0-6) 04/06/25 05:31
Basophils % 0.6 % (0-2) 04/06/25 05:31
Abs Neuts (Manual) 4.5 10^3/uL (1.4-6.5) 04/06/25 05:31
Segmented Neutrophils 74 % (42-75) 04/06/25 05:31
Band Neutrophils 16 % (0-3) H 04/06/25 05:31
Lymphocytes (Manual) 3 % (20-51) L 04/06/25 05:31
Basophils (Manual) 1 % 04/06/25 05:31
Lactic Acid Cancelled 04/05/25 12:45
Procalcitonin 0.45 ng/ml (0.0-0.25) H 04/05/25 09:46
Microbiology Results
Micro:
04/05/25 20:20 Nasal Screen MRSA (PCR) - Final
Nose MRSA not detected - performed by PCR methodology.
04/06/25 10:49 Blood Culture - Pending
Blood/Venous
04/05/25 09:46 Blood Culture - Preliminary
Blood/Venous No Growth in 24 hours- Final report to follow
04/05/25 08:48 Blood Culture - Preliminary
Blood/Venous Staphylococcus species
Gram Stain - Final
04/05/25 08:48 Influenza Types A & B (MELYSSA) - Final
Nasal Swab Negative for Influenza A & B, NAAT
Negative results must be combined with clinical observations
and patient history.
Nucleic Acid Amplification test (NAAT)performed on the
[employer] platform.
Imaging:
04/05/2025 CT chest (PE study): no pulmonary embolism. No aortic dissection. No pneumothorax. No abnormal pleural or parenchymal masses. Moderate right pleural effusion noted. Moderate consolidation in the left lower lobe concerning for
pneumonia. There is also moderate right lower lobe consolidation. A spiculated band of tissue in the right upper lobe measures 4.1 x 2.2 cm and stable from prior imaging. A solid noncalcified spiculated nodule in the right middle lobe is noted.
Mediastinum is normal. No hilar or mediastinal lymphadenopathy.
Assessment / Plan
Bilateral pneumonia
Normal white count with left shift
Hypoxemia
Elevated procalcitonin
CHF
HTN
Orthostatic hypotension
Recommendations:
Transition Zosyn to cefepime 1 gm IV q.6 hours.
Given negative MRSA PCR, discontinue further vancomycin.
Await sputum culture.
Follow white count and temperature curve.
Further recommendations as additional data is returned.
Care Review
Plan reviewed with: Physician (Hospitalist)
--- NOTE | 2025-04-06 15:27 | PTCARENOTE ---
Pt family request pt OOB , Pt OOB to chair with Max assist 2, very weak and unsteady on his feet. attempting to get fresh sputum sample
[2025-04-06] MEDS: CRESTOR 40 MG PO (17:05)
[2025-04-06] MEDS: STERILE WATER FOR INJECTION 10 ML IV (17:07)
[2025-04-06] MEDS: MAXIPIME 1000 MG IV (17:08)
[2025-04-06] MEDS: ELIQUIS 2.5 MG PO (20:09)
[2025-04-06] MEDS: NEURONTIN 300 MG PO (22:35)
[2025-04-06] MEDS: REMERON 15 MG PO (22:35)
[2025-04-07] VITALS (14 sets, daily range): BP systolic 99–128; BP diastolic 44–89; PULSE 2–102; O2SAT 93; BMI 18.9
[2025-04-07] MEDS: MAXIPIME 1000 MG IV ×5 (00:36→23:32)
[2025-04-07] MEDS: STERILE WATER FOR INJECTION 10 ML IV ×5 (00:36→23:32)
--- NOTE | 2025-04-07 01:06 | PTCARENOTE ---
Patient is AAOx3, anxious at times. Pt and son at bedside and change of shift. Pt son had concerns regarding the pts poor oral intake. Pt states he is 'feeling tired'. A-fib on the monitor. Received pt on 2L NC. CC #25 replaced, viki care done.
IV abx administered see SEP. Sacral foam is intact. Pt tolerating turning and repositioning, however needs encouragement. Call torres within reach.
[2025-04-07 04:58] LABS: Hematocrit 29.7 % (39.0-52.0); Hemoglobin 9.2 g/dL (13.0-18.0); Mean Corp Hgb Conc. 31.0 g/dL (33.0-37.0); Mean Corpuscular Volume 87.4 fL (80.0-94.0); Platelet Count 273 10^3/uL (130-400); Red Cell Dist. Width 18.1 % (11.5-14.5)
[2025-04-07 05:17] LABS: Albumin 2.5 g/dl (3.5-5.0); Blood Urea Nitrogen 25 mg/dl (9-20); Calcium 7.4 mg/dl (8.4-10.2); Carbon Dioxide 28 mmol/L (22-30); Chloride 104 mmol/L (98-107); Estimated Creatinine Clearance 77 ml/min; Glucose 132 mg/dl (70-99); Potassium 3.5 mmol/L (3.5-5.1); Sodium 136 mmol/L (135-145); eGFR > 60.00
--- NOTE | 2025-04-07 05:50 | PTCARENOTE ---
Patient having periods of apnea while sleeping. Pt desatting to 82% while on 2L NC. Pt has a junky moist cough. Pt encouraged to suction sputum and encouraged to effectively cough. Sputum sample collected and sent.
--- NOTE | 2025-04-07 07:30 | W.PN.ID1 ---
Date of Service
Date of Service: April 07, 2025
Today's Communication
Continue cefepime.
Assessment / Plan
Bilateral pneumonia
Normal white count with left shift
Hypoxemia
Elevated procalcitonin
CHF
HTN
Orthostatic hypotension
Recommendations:
Continue cefepime 1 gm IV q.6 hours.
Await sputum culture.
Follow white count and temperature curve.
Follow CXR.
����������������������������������������������������������
Chief Complaint
-: Pneumonia
Subjective / Review of Systems
Patient seen and examined. Reports uneventful night. Still with cough. Was able to produce a sputum sample yesterday. Breathing comfortable.
Vital Signs / Physical Exam
Vital Signs
Vital Signs
Temp Pulse Resp BP Pulse Ox
98.4 F 91 16 119/65 95
04/07/25 03:00 04/07/25 06:00 04/07/25 06:00 04/07/25 06:00 04/07/25 06:00
Physical Exam
Constitutional: Comfortable, Chronically Ill and Non-toxic
Eyes: Sclera Anicteric
Cardiovascular: Irregular Rate and S1/S2; Negative S3/S4
Pulmonary: Rhonchi and Non Labored
Gastrointestinal: Soft and Non Tender
Genito-Urinary: Quarles (Condom cath) and Clear Urine
Extremities: Negative Edema, Cyanosis or Erythema
Skin: Warm and Dry
Neurological: Awake and Alert
Psychological: Calm
Objective Data
Lab Data
Lab Results
04/07/25 04:15
04/07/25 04:15
Estimated Creat Clear 77 ml/min 04/07/25 04:15
Lactic Acid Cancelled 04/05/25 12:45
Total Bilirubin 0.6 mg/dl (0.2-1.3) 04/06/25 05:31
AST 21 U/L (17-59) 04/06/25 05:31
ALT 17 U/L (0-50) 04/06/25 05:31
Alkaline Phosphatase 85 U/L (38-126) 04/06/25 05:31
Most recent labs reviewed.
Micro Results:
04/07/25 05:46 Respiratory Culture - Pending
Sputum Gram Stain - Pending
04/06/25 20:32 Blood Culture - Pending
Blood/Venous
04/06/25 17:17 Respiratory Culture - Pending
Sputum Gram Stain - Preliminary
04/05/25 20:20 Nasal Screen MRSA (PCR) - Final
Nose MRSA not detected - performed by PCR methodology.
04/06/25 10:49 Blood Culture - Pending
Blood/Venous
04/05/25 09:46 Blood Culture - Preliminary
Blood/Venous No Growth in 24 hours- Final report to follow
04/05/25 08:48 Blood Culture - Preliminary
Blood/Venous Staphylococcus species
Gram Stain - Final
04/05/25 08:48 Influenza Types A & B (MELYSSA) - Final
Nasal Swab Negative for Influenza A & B, NAAT
Negative results must be combined with clinical observations
and patient history.
Nucleic Acid Amplification test (NAAT)performed on the
[employer] platform.
Imaging:
04/05/2025 CT chest (PE study): no pulmonary embolism. No aortic dissection. No pneumothorax. No abnormal pleural or parenchymal masses. Moderate right pleural effusion noted. Moderate consolidation in the left lower lobe concerning for
pneumonia. There is also moderate right lower lobe consolidation. A spiculated band of tissue in the right upper lobe measures 4.1 x 2.2 cm and stable from prior imaging. A solid noncalcified spiculated nodule in the right middle lobe is noted.
Mediastinum is normal. No hilar or mediastinal lymphadenopathy.
[2025-04-07] MEDS: ADVAIR HFA 115/21 MCG INHALER 2 PUFF INH ×2 (08:27→19:27)
--- NOTE | 2025-04-07 08:37 | PTCARENOTE ---
Patient received from senior technical writer. Patient resting comfortably in bed. AAO, VSS. No events noted overnight. No complaints of pain at this time. OOB to chair today. No further testing scheduled at this time. Call torres in reach.
[2025-04-07] MEDS: MAGNESIUM OXIDE 400 MG PO (09:31)
[2025-04-07] MEDS: SANTYL OINTMENT 1 APPLIC TOPICAL (09:31)
[2025-04-07] MEDS: ELIQUIS 2.5 MG PO ×2 (09:31→20:30)
[2025-04-07] MEDS: PROTONIX 40 MG PO (09:31)
[2025-04-07] MEDS: SODIUM CHLORIDE 1 GRAM PO ×2 (09:31→20:31)
[2025-04-07] MEDS: LASIX 20 MG PO (09:32)
[2025-04-07] MEDS: VITAMIN D3 (cholecalciferol) 50 MCG PO ×2 (09:33→20:31)
[2025-04-07] MEDS: OSCAL CAL 500 1000 MG PO ×2 (09:33→20:31)
[2025-04-07] MEDS: PACERONE 200 MG PO ×2 (09:33→20:31)
[2025-04-07] MEDS: METAMUCIL, KONSYL 1 PACKET PO (09:36)
[2025-04-07] MEDS: HYDROCORTISONE 1% LOTION 1 APPLIC TOPICAL (09:37)
[2025-04-07] MEDS: SIMBRINZA 1%-0.2% OPHTH SUSP 1 DROP RIGHT EYE ×2 (09:38→20:32)
--- NOTE | 2025-04-07 09:53 | W.PN.ONC ---
Today's Communication / Plan
-
Continue antibiotics and mgmt of PNA per primary team/ID
Mgmt of HF and Afib per cardiology
His lung cancer is stable on Keytruda, without signs of toxicity from treatment
He's scheduled for his next dose on 04/[address] Sandoval on 05/13 with an updated PET done prior
Oncology will sign off, please call with questions
Impression
Impression
Non-small cell lung cancer s/p chemo/radiation currently on Keytuda
Pneumonia
Plan
Plan
Continue antibiotics and mgmt of PNA per primary team/ID
Mgmt of HF and Afib per cardiology
His lung cancer is stable on Keytruda, without signs of toxicity from treatment
He's scheduled for his next dose on 04/[address] Sandoval on 05/13 with an updated PET done prior
Oncology will sign off, please call with questions
Subjective/Objective
Subjective/Objective
He says he's not sure if he's feeling better or not, still on O2
Vital Signs:
StiVital Signs
Temp Pulse Resp BP Pulse Ox
98.3 F 90 19 99/63 98
04/07/25 07:47 04/07/25 09:31 04/07/25 08:30 04/07/25 09:31 04/07/25 08:30
sitting in chair w/ breakfast tray in front of him
alert and appropriate
Nasal O2, no conversational dyspnea
Lab Results:
Laboratory Data
WBC 5.1 10^3/uL (4.8-10.8) 04/07/25 04:15
Hgb 9.2 g/dL (13.0-18.0) L 04/07/25 04:15
Plt Count 273 10^3/uL (130-400) 04/07/25 04:15
eGFR > 60.00 04/07/25 04:15
--- NOTE | 2025-04-07 10:37 | PN.CDI ---
CDI
- -
CDI:
Physician Documentation Request
Admit Date: 04/05/25 14:10
Dear Doctor,
Please review the following and provide your response in the progress notes.
Clinical Indicators:
- RN nallely assessments indicate Stage 2 coccyx pressure injury, POA
Physician documentation of the type and location of wounds is required for compliant documentation. Based on the above clinical findings and your assessment, please provide the following in your progress note:
1. Location of the ulcer/wound, including laterality.
2. Type (etiology) of ulcer/wound:
- Diabetic ulcer
- Arterial (ischemic) ulcer
- Traumatic wound
- Venous stasis ulcer
- Pressure (decubitus) ulcer
- Other
Use of terms such as suspected, likely, concern for, or probable (associated with a specific diagnosis that is being evaluated, monitored, or treated as if it exists) are acceptable and can be coded in the inpatient setting, when documented at the
time of discharge.
Thank you,
Grover Myers RN
CDI Specialist
Please use your independent medical judgment in providing your response.
*Source: National Pressure Ulcer Advisory Panel (NPUAP)
--- NOTE | 2025-04-07 10:40 | W.PN.CARDCBS ---
Addendum entered and electronically signed by Luis Balderas MD 04/07/25 14:55:
Patient has bifascicular block, right bundle branch block and left anterior fascicular block
Original Note:
Today's Communication / Plan
-
Continue furosemide 20 mg daily by mouth
Continue amiodarone 200 mg twice daily for 4 weeks then 200 mg daily
Eliquis 2.5 mg twice daily
We will arrange for cardiology follow-up
Impression / Plan
-
PCP: Dr. Moncho Jimenez
Dye Range Feeder: Dr. Dempsey
Impression:
Admitted with acute hypoxic respiratory failure/febrile illness with B/L PNA 04/05/25
B/L PNA
Acute HFpEF
A-fib with RVR
Known paroxysmal atrial fibrillation
Chronic OAC with Eliquis
Orthostatic hypotension
Metastatic NSCLC
COPD/emphysema
SVC syndrome, currently receiving radiation�improvement after radiation of upper extremity edema
Thyroid nodules
BPH
Tobacco abuse
Thoracic aortic aneurysm 4.[address] in [address] of chest
Diverticulitis with diverticular abscess with colon resection
Chronic neck and back pain
Former alcoholic
DNR code status
ECHO 11/18/24: EF 55-60%, normal RWM, mild TR, trivial pericardial effusion, dilated aortic root
ECHO 02/23/2025: LV ejection fraction 55 to 60%. No regional wall motion abnormality. Normal RV size and systolic function. Trace mitral regurgitation. Trileaflet mildly sclerotic aortic valve with trace aortic regurgitation. Mild tricuspid
regurgitation. Estimated pulmonary artery pressure 29 mmHg assuming a right atrial pressure 3 mmHg. Trivial pericardial effusion. Mildly dilated aortic root: 4.1 cm at sinus of Valsalva. Mildly dilated proximal ascending aorta, 4.1 cm.
Plan:
From the standpoint of paroxysmal A-fib he remains in sinus rhythm with a somewhat chaotic atrial mechanism but no prolonged arrhythmia. Continue amiodarone 200 mg twice daily.
From the standpoint of HFpEF he is also stable, now on furosemide 20 mg a day.
We had elected to reduce his Eliquis 6 months prematurely based on frailty, addition of amiodarone, comorbidities etc.
Will make no changes at present. From our standpoint, okay to begin discharge planning.
Progress Note - Dye Range Feeder
Subjective
Date of Service: April 07, 2025
Complex 79-year-old man with non-small cell lung cancer metastatic bone on Keytruda. Admitted February 2025 with syncope presumed be vagal. Now admitted with suspected PNA/sepsis and possible superimposed acute on chronic HFpEF with recurrence atrial
fibrillation rapid ventricular response Patient discharge off daily furosemide in February with instructions for PRN dosing for weight gain, etc.
PMH/PSH: non-small cell carcinoma right lung treated with radiation and Keytruda metastatic to bone, orthostasis, PAF, HFpEF, COPD, cachexia, history of SVC syndrome with recent XRT, mildly dilated ascending aorta 4.3 CM, history of alcohol use.,
Hyperlipidemia, hypertension.
Current meds: Rosuvastatin 40 mg a day, midodrine 10 mg 3 times daily, colecalciferol, magnesium, Xalatan eyedrops, Remeron 15 at bedtime, pantoprazole 40 mg a day, Simbrinza, calcium, Neurontin 300 a day, fentanyl patch, apixaban 2.5 twice daily,
amiodarone 200 mg twice daily, furosemide 20 mg a day, cefepime
Now on oral furosemide 20 mg, had not been on diuretic prior to admission
99/63, pulse 90, respiratory rate 19, afebrile, sats are 96%, weight is 54.7 kg, if accurate up 1.3 kg. Currently he offers no complaints except right shoulder pain, sitting in chair. Head neck exam notable for temporal wasting, some rhonchi
throughout, regular rate and rhythm without obvious murmurs abdomen thin, extremities trace to 1+ edema
Hemoglobin 9.2, was 9.8, was 9.9 on March 13, BUN and creatinine are 25 and 0.5, potassium is 3.5
Telemetry: Frequent PACs,atrial couplets, triplets but no A-fib
Objective
Labs:
04/07/25 04:15
04/07/25 04:15
Labs
Hgb 9.2 g/dL (13.0-18.0) L 04/07/25 04:15
Hct 29.7 % (39.0-52.0) L 04/07/25 04:15
Plt Count 273 10^3/uL (130-400) 04/07/25 04:15
Sodium 136 mmol/L (135-145) 04/07/25 04:15
Potassium 3.5 mmol/L (3.5-5.1) 04/07/25 04:15
BUN 25 mg/dl (9-20) H 04/07/25 04:15
Creatinine 0.5 mg/dL (0.7-1.3) L 04/07/25 04:15
Glucose 132 mg/dl (70-99) H 04/07/25 04:15
Troponins
04/06/25
05:31
Troponin I 0.035 H*
Vital Signs and I&O:
Vital Signs
Temp Pulse Resp BP Pulse Ox
36.8 C 90 19 99/63 96
04/07/25 07:47 04/07/25 09:31 04/07/25 08:30 04/07/25 09:31 04/07/25 10:01
Vital Signs
Temp Pulse Resp BP Pulse Ox
36.8 C 90 19 99/63 96
04/07/25 07:47 04/07/25 09:31 04/07/25 08:30 04/07/25 09:31 04/07/25 10:01
Intake & Output
04/05/25 04/06/25 04/07/25 04/08/25
07:59 07:59 07:59 07:59
Output Total 450 / 450
Balance -450 / -450
Physical Exam
Physical Exam
See above
--- NOTE | 2025-04-07 11:03 | W.PN.UPDATE ---
Addendum entered and electronically signed by Ton Sanchez MD 04/07/25 12:30:
Stage 2 coccyx pressure injury, POA
Original Note:
Update Note
Progress Note Update
I saw and evaluated the patient. I reviewed the resident�s note and agree with findings and plan as documented in the resident�s note.
Denies CP/SOB.
Gen: NAD, Awake and alert, appears chronically ill and malnourished/cachectic
Eyes: EOMI, PERRLA, no scleral icterus.
Neck: supple.
CV: remains irreg/irrage, +S1/S2, no m/r/g.
Resp: dec BS in the bases
Abd: remains +BS, soft, NT, ND
Skin: No rashes. No LE edema
Neuro: CN 2-12 intact, non-focal.
Psych: Normal mood and affect.
04/06/25 10:49 Blood/Venous Blood Culture - Preliminary
No Growth in 24 hours- Final report to follow
04/07/25 05:46 Sputum Gram Stain - Preliminary
04/05/25 09:46 Blood/Venous Blood Culture - Preliminary
No Growth in 48 hours- Final report to follow
04/05/25 08:48 Blood/Venous Blood Culture - Preliminary
Coagulase neg. staphylococcus
Additional testing on request
04/05/25 08:48 Blood/Venous Gram Stain - Final
04/06/25 17:17 Sputum Gram Stain - Preliminary
04/05/25 20:20 Nose Nasal Screen MRSA (PCR) - Final
MRSA not detected - performed by PCR methodology.
04/05/25 08:48 Nasal Swab Influenza Types A & B (MELYSSA) - Final
Negative for Influenza A & B, NAAT
Negative results must be combined with clinical observations
and patient history.
Nucleic Acid Amplification test (NAAT)performed on the
[employer] platform.
CTA chest: No PE. Moderate R pleural effusion. Small L pleural effusion. New. Moderate bibasilar consolidation concerning for pneumonia. Left greater than right. New. Stable band of scar tissue versus treated neoplasm in the right upper lobe. Stable
known mild osseous metastasis. Too small to characterize hypodense hepatic lesions likely small cysts or hemangiomas. Stable right-sided pulmonary nodules. Mild emphysematous disease.
Severe sepsis and acute hypoxemic respiratory failure due to B/L PNA:
-Patient received 1 L normal saline in the ER. I would not give this patient the full 30cc/kg bolus due to history of congestive heart failure, stable blood pressure, pleural effusions concerning for acute CHF.
-Procalcitonin is noted but should not have been ordered in a patient with malignancy, it is not interpretable
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
-severe sepsis a/e/b tachypnea, fever (temp 100.3 F constitutes a fever in an immunocompromised patient), tachycardia, source PNA
-B/L pleural effusions are concerning for acute on chronic heart failure with preserved ejection fraction. In the setting of severe sepsis due to pneumonia, no further IV fluids were given after the ER.
-cardiology following
-cont Lasix 20mg IV daily, daily wts, I/Os
-COVID/Flu NEG
-cont Cefepime as per ID
-despite imaging with mod R pleural effusion there is not enough fluid to tap as per IR
-c/s pulm
PAF with RVR:
-RVR due to severe sepsis
-in the recent past pt's BB was stopped due to syncope, bradycardia, orthostatic hypotension
-cont Eliquis/amio
Acute on chronic HFpEF:
-was on Lasix in the past which was stopped due to orthostatic hypotension
-possible acute on chronic HFpEF as above
-cont IV Lasix
-daily wts, I/Os
Other problems:
Orthostatic hypotension: cont Midodrine, place abd binder/TEDs PRN
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 Sandoval outpt
Chronic Pain with chronic opioid use with dependence: due to bone metastasis/cancer related pain, cont fentanyl patch/oxycodone/gabapentin, cont bowel regimen
COPD without Acute Exacerbation: cont Striverdi/Spiriva
TASIA: BIPAP HS
Chronic right shoulder pain: due to severe OA and rotator cuff tear. Note, pt had been on NSAIDs in the setting of being on Eliquis due to severe pain refractory to narcotics, Neurontin, etc after extensive discussions with pain management and
cardiology
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
DNR/I
[2025-04-07] MEDS: MUCINEX 1200 MG PO ×2 (12:25→20:31)
[2025-04-07] MEDS: SODIUM CHLORIDE 3% FOR INHALATION 1 VIAL INH ×2 (12:33→19:27)
[2025-04-07] MEDS: DUONEB 3 ML INH ×2 (12:33→19:27)
--- NOTE | 2025-04-07 13:01 | PN.CDI ---
CDI
- -
CDI:
Physician Documentation Request
Admit Date: 04/05/25 14:10
Dear Doctor,
Please review the following and provide your response in the progress notes.
Clinical Indicators:
- Uniform Room Attendant note indicates moderate protein calorie malnutrition
- Unintentional weight loss > 5% in 1 month
- Nutrient intake </= 50% estimated energy needs, >/= 1 month
Based on the above information and your assessment, which of the following most accurately represents the patient's nutritional status?
Moderate protein calorie malnutrition
Other (please specify)
[place] Criteria ([facility] Hospitalist 2017)
2 or more criteria must be present for either
non severe or severe malnutrition
Note that the criteria differs related to the
presence of an acute or chronic illness
Acute Illness Chronic Illness
Energy Intake Non Severe: <75% for >7 days Non Severe: <75% for >1 month
Severe: <50% for >5 days Severe: <75% for >1 month
Weight Loss Non Severe: 1-2% over 1 week Non Severe: 5% over 1 month
5% over 1 month 7.5% over 3 months
7.5% over 3 months 10% over 6 months
1 year N/A 20% over 1 year
Severe: >2% over 1 week Severe: >5% over 1 month
>5% over 1 month >7.5% over 3 months
>7.5% over 3 months >10% over 6 months
1 year N/A >20% over 1 year
Body Fat Non Severe: Mild Decrease Non Severe: Mild Loss
Severe: Moderate Decrease Severe: Severe Loss
Muscle Mass Non Severe: Mild Decrease Non Severe: Mild Loss
Severe: Moderate Decrease Severe: Severe Loss
Fluid Accumulation Non Severe: Mild Accumulation Non Severe: Mild Accumulation
Severe: Moderate to severe Severe: Moderate to severe
accumulation accumulation
Reduced Solid Die Cutter Strength Non Severe: N/A Non Severe: N/A
Severe: Measurably reduced Severe: Measurably reduced
Additional criteria that can be used to Determine if Mild or Moderate Malnutrition ([employer] Manual 2018)
Mild Moderate Severe
Albumin gm/dl <3.0 gm/dl <2.5 gm/dl <2.0 gm/dl
Pre Albumin mg/dl <15 gm/dl <10 mg/dl <5.0 mg/dl
BMI <18.5 <17 <16
Use of terms such as suspected, likely, concern for, or probable (associated with a specific diagnosis that is being evaluated, monitored, or treated as if it exists) are acceptable and can be coded in the inpatient setting, when documented at the
time of discharge.
Thank you,
Grover Myers RN
CDI Specialist
Please use your independent medical judgment in providing your response.
--- NOTE | 2025-04-07 13:03 | PN.CDI ---
CDI
- -
CDI:
Physician Documentation Request
Admit Date: 04/05/25 14:10
Dear Cardiology,
Please review the following and provide your response in the progress notes.
Clinical Indicators:
The diagnosis of bifascicular block was included in the signed 04/06 EKG
- 04/06 EKG with bifascicular block
- Right bundle branch block
- Left anterior fascicular block
Please indicate in your progress notes if you are in agreement that the above diagnosis is valid for this patient:
____ - Bifascicular block is a valid diagnosis (Please include it in your progress notes)
____ - Bifascicular block is not a valid diagnosis for this patient
____ - Other (please specify)
Use of terms such as suspected, likely, concern for, or probable are acceptable for a diagnosis that is being evaluated, monitored or treated as if it exists and can be coded in the inpatient setting, when documented at the time of discharge.
Thank you,
Grover Myers RN
CDI Specialist
Please use your independent medical judgment in providing your response.
--- NOTE | 2025-04-07 13:16 | W.PN.HOSP.TC ---
Today's Communication/Plan
-
Started Mucinex, Acapella, and chest physiotherapy. Will resume CPAP at night. Pulmonology consulted. Pending recommendations regarding thoracentesis.
Assessment / Plan
Assessment / Plan
IMPRESSION:
Mr. Adolfo Higgins is a 79yoM with a PMH notable for stage IV lung carcinoma (Keytruda, s/p radiotherapy), paroxysmal A-fib (Eliquis), right shoulder arthritis (sp ORIF, on oxycodone, fentanyl, ibuprofen), orthostatic hypotension (midodrine), who
presents from [facility] with acute on chronic productive cough and hypoxia.
PLAN:
#Sepsis�pneumonia
- hypoxia, productive cough, fever x 1. Moderate bibasilar consolations concerning for pneumonia on CT. Multifactorial: Pneumonia, heart failure, immune related pneumonitis
� Blood cultures: 1 culture positive for Staphylococcus species. Other culture no growth to date. Repeat blood culture pending
� Cefepime 04/06/2025� . Vancomycin and Zosyn 04/05/2025.
- Per ID, switched to cefepime from Zosyn, and discontinued vancomycin due to negative MRSA on 04/06/25.
#Bilateral pleural effusions
Moderate right pleural effusion and small left pleural effusion on CT
� BiPAP weaned to 1.5 L NC
� Anticipated thoracentesis of moderate right pleural effusion not performed due to the pleural effusion being too small to outweigh the risks at this
� Pulmonology consulted. Pending recommendations regarding thoracentesis.
#Productive cough
� Started Mucinex, Acapella, and chest physiotherapy. Will resume CPAP at night.
� Pulmonology consulted. Pending recommendations regarding thoracentesis.
#A-fib with RVR
� Eliquis 2.5 mg p.o. twice daily. Decreased from 5 mg p.o. daily
� Amiodarone 200 mg p.o. daily started 04/06/2025
� Beta radha discontinued previously due to soft blood pressures
#Chronic HFpEF
� Echo 02/23/25: Mildly dilated aortic root. LV EF 55 to 60%. Normal LV size and function. Normal regional wall motion
� Daily weights, I/O
� BNP 3670 positive
� Troponin I elevated at 0.035; history of elevated troponin I
Cardiology consult
- IV Lasix 20 mg 04/06/2025. Will try to continue Lasix if blood pressure allows. Was discontinued previously due to orthostasis
� If patient does not convert back to sinus rhythm or rate presents to control, consider amiodarone
� Hold beta radha given orthostasis
# NSCLC, stage IV
#Widespread osseous metastatic disease.
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 Bilateral pulmonary nodules, likely metastases
� Keytruda infusion every 3 weeks. Finished radiotherapy.
� Follows with Dr. Sandoval
� Xgeva every 6 weeks to prevent pathologic fractures
� Calcium carbonate 1000 mg p.o. twice daily, vitamin D 50 mcg p.o. twice daily
� Hematology�oncology consult: Continue outpatient lung cancer therapy
#Orthostatic hypotension
He took sodium chloride p.o. at home for hyponatremia and hypotension
� Midodrine 10 mg p.o. 3 times daily
#Right shoulder pain
S/p ORIF
� Oxycodone 5 mg p.o. every 6 as needed, fentanyl patch 25 mcg every 72 hours, gabapentin 300 mg p.o. nightly
� Holding ibuprofen due to risk of increased bleeding in combination with Eliquis
#Malnutrition
� Calcium 7.5, albumin 2.8, calcium corrected to albumin is 8.5 (04/06/2025)
#COPD: Continue home inhalers: Albuterol, fluticasone salmeterol
#Depression: Mirtazapine 15 mg p.o. nightly
#Hyperlipidemia: Continue home rosuvastatin 40 mg p.o. every afternoon
#Glaucoma: Latanoprost, Brinzolamide/brimonidine
CODE STATUS: DNR and DNI
DVT prophylaxis: Eliquis 2.5 mg p.o. twice daily
Diet: Regular
Dispo: PT OT consult. Came from [facility]
Attempted to call son twice, but sent to voicemail
Anticipated Discharge: > 48 hours
Subjective/Interval History
-
Date of Service: April 07, 2025
No acute events overnight. Patient denies shortness of breath, except during coughing fits. He coughed a few times during conversation. His cough sore slow he coughed for a while, because it is still room to clear the mucus. Patient felt he had
a restful sleep, and did not feel short of breath overnight.
Objective Data
-
Labs:
Laboratory Results
04/07/25
04:15
WBC 5.1
Hgb 9.2 L
Hct 29.7 L
Plt Count 273
Sodium 136
Potassium 3.5
Chloride 104
Carbon Dioxide 28
BUN 25 H
Creatinine 0.5 L
Glucose 132 H
Calcium 7.4 L
Vital Signs:
Vital Signs
Temp Pulse Resp BP Pulse Ox
97.8 F 93 18 99/63 96
04/07/25 12:39 04/07/25 12:39 04/07/25 12:39 04/07/25 09:31 04/07/25 10:01
I&O
04/06/25 04/07/25 04/08/25
06:59 06:59 06:59
Output Total 450 / 450
Balance -450 / -450
Review of Systems
-
History Source: Patient
Constitutional: Denies Fever
EENT: Reports No Symptoms Reported
Respiratory: Reports Cough (wet) and Trouble Breathing (when coughing)
Cardiac: Reports No Symptoms
Abdomen/GI: Reports No Symptoms
Genitourinary: Reports No Symptoms
Musculoskeletal: Reports Joint Pain (right shoulder)
Skin: Reports No Symptoms
Physical Exam
-
General: Well Developed, No Apparent Distress, Comfortable, Conversant and Cachectic
HEENT: Normocephalic, Atraumatic, Moist Mucous Membranes, Anicteric, Nose Appears Normal and Ears Appear Normal
Respiratory: Rales and Other (Coughing spells: Slow cough; coughs for a while because he has not able to clear his mucus with forceful coughs)
Cardiac: Irregular Rhythm
GI: Soft, Nontender, Nondistended, Normal Bowel Sounds and Other (Scaphoid)
Musculoskeletal: No Clubbing, No Cyanosis and No Edema
Skin: Warm and Dry
Neuro: Awake, Alert, Oriented, Nonfocal/Grossly Intact and Central Nerve's Intact
Psych: Calm
Data Reviewed
-
Diagnostic Radiology: Report Reviewed by me
CT Scan: Report Reviewed by me
Ultrasound: Report Reviewed by me
Labs: Labs Reviewed by me
--- NOTE | 2025-04-07 13:19 | CON.PUL ---
Consultation
Consultation Request
Date/Time Consultation Requested: 04/07/25
Date/Time Consultation Performed: 04/07/25
Performing Provider: Key
Reason for Consultation: SOB
Medical History
-
History of Present Illness:
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
of breath, cough complaints and hypoxemia. He was noted late more confused over the last 2 days, his O2 saturation dropped into the low 70s. He was increased on his O2 requirements to 6 L. He does not use O2 at baseline. Last seen in the office
by Dr Boateng and had PFT demonstrating moderate obstruction.
CT of the chest obtained indicating small pleural effusion, proBNP 3670. Echo 02/23/2025 showing normal function, no significant pulmonary hypertension.
Past Medical History
Past Medical History: Other (see list below)
Social History
Tobacco: Former Smoker
Alcohol: None
Drug: None
Allergies / Home Medications
Allergies
Allergy/AdvReac Type Severity Reaction Status Date / Time
levetiracetam (From [facility]) AdvReac Severe Fatigue Verified 04/05/25 09:08
acetaminophen AdvReac Intermediate LFT Verified 04/05/25 09:08
abnormalities
Hayfever Allergy Sneezing, Uncoded 04/05/25 09:08
watery/itchy
eyes,
stuffy nose
Home Medications
�Medication �Instructions �Recorded �Confirmed �Last Taken �Type
brinzolamide 1 %-brimonidine 0.2 % 1 drp RIGHT EYE BID Eye Condition 04/09/23 04/05/25 05/06/24 History
eye drops,suspension (Simbrinza)
gzqrdecjzyfo-waetmspl-fgzfrl 1 tab PO DAILY Supplement 04/09/23 04/05/25 03/17/24 History
tablet (Theratrum Complete 50 Plus
with Lutein tablet)
apixaban 5 mg tablet (Eliquis) 5 mg PO BID #60 tabs 04/10/23 04/05/25 05/06/24 Rx
bisacodyl 10 mg rectal suppository 10 mg IN DAILYPRN PRN if no bm x 3 05/14/24 04/05/25 Unknown History
(Dulcolax (bisacodyl)) days
oxycodone 5 mg tablet 5 mg PO Q6HPRN PRN severe pain 05/14/24 04/05/25 Unknown History
denosumab 120 mg/1.7 mL (70 mg/mL) 120 mg SC Q4W Cancer ##0 11/18/24 04/05/25 Unknown History
subcutaneous solution
gabapentin 300 mg capsule 300 mg PO HS Neurological Condition 11/18/24 04/05/25 02/28/25 08:00 History
psyllium 1 packet PO DAILY Constipation 11/18/24 04/05/25 Unknown History
sennosides 8.6 mg-docusate sodium 2 tab-cap PO BIDPRN PRN 11/18/24 04/05/25 Unknown History
50 mg tablet (Senokot-S) constipation
calcium carbonate 1,000 mg PO BID Supplement ##0 01/20/25 04/05/25 02/28/25 08:00 History
fentanyl 12 mcg/hr transdermal 1 patch transdermal Q72H severe 01/20/25 04/05/25 Unknown History
patch pain
fentanyl 25 mcg/hr transdermal 1 patch transdermal Q72H severe 01/20/25 04/05/25 Unknown History
patch Pain
sodium phosphates 19 gram-7 118 ml IN DAILYPRN PRN IF NO BM X4 02/21/25 04/05/25 Unknown History
gram/118 mL enema (Fleet Enema) DAYS
midodrine 5 mg tablet 10 mg (2 x 5 mg) PO 03/10/25 04/05/25 Unknown Rx
TID@0800,1300,1800 Blood pressure
#90 tabs
albuterol sulfate 90 mcg/actuation 2 puff inhalation R Q6HPRN PRN sob 04/05/25 04/05/25 Unknown History
aerosol inhaler
cholecalciferol (vitamin D3) 50 50 mcg PO BID Supplement 04/05/25 04/05/25 Unknown History
mcg (2,000 unit) capsule (Vitamin
D3)
collagenase clostridium histo. 250 1 applic topical DAILY Wound care 04/05/25 04/05/25 Unknown History
unit/gram topical ointment (Santyl)
fluticasone 113mcg-salmeterol 1 inh inhalation R BID 04/05/25 04/05/25 Unknown History
14mcg/actuation breath act,powder Lung/Breathing Issues
sensor (AirDuo Digihaler)
hydrocortisone 1 % lotion 1 applic topical DAILY Itchy 04/05/25 04/05/25 Unknown History
areas, rash
ibuprofen 200 mg tablet (Advil) 400 mg PO [id number] PRN mild pain 04/05/25 04/05/25 Unknown History
latanoprost 0.005 % eye drops 1 drp BOTH EYES HS Eye Condition 04/05/25 04/05/25 Unknown History
lidocaine 4 % topical cream 1 applic topical Q4HPRN PRN mild 04/05/25 04/05/25 Unknown History
pain
magnesium hydroxide 400 mg/5 mL 2,400 mg PO HSPRN PRN if no bm by 04/05/25 04/05/25 Unknown History
oral suspension (Milk of Magnesia) 2nd day
magnesium oxide 400 mg PO DAILY Supplement 04/05/25 04/05/25 Unknown History
mirtazapine 15 mg tablet (Remeron) 15 mg PO HS Mental Health/Anxiety 04/05/25 04/05/25 Unknown History
pantoprazole 40 mg tablet,delayed 40 mg PO DAILY Gastrointestinal 04/05/25 04/05/25 Unknown History
release (Protonix) Issue
pembrolizumab 25 mg/mL intravenous 200 mg IV Q21D Cancer 04/05/25 04/05/25 Unknown History
solution (Keytruda)
rosuvastatin 40 mg tablet (Crestor) 40 mg PO QPM High Cholesterol 04/05/25 04/05/25 Unknown History
sodium chloride 1 gram tablet 1,000 mg PO BID Electrolyte 04/05/25 04/05/25 Unknown History
Repletion
Review of Systems
-
History Source: Patient
All other systems: Negative unless noted
Vitals / Labs / Diagnostic Testing
Vital Signs
Temp Pulse Resp BP Pulse Ox
97.8 F 93 18 99/63 96
04/07/25 12:39 04/07/25 12:39 04/07/25 12:39 04/07/25 09:31 04/07/25 10:01
Lab Data
04/07/25 04:15
04/07/25 04:15
Microbiology
04/06/25 17:17 Sputum Respiratory Culture - Preliminary
Usual Respiratory Karma
04/06/25 17:17 Sputum Gram Stain - Preliminary
04/06/25 10:49 Blood/Venous Blood Culture - Preliminary
No Growth in 24 hours- Final report to follow
04/07/25 05:46 Sputum Gram Stain - Preliminary
04/05/25 09:46 Blood/Venous Blood Culture - Preliminary
No Growth in 48 hours- Final report to follow
04/05/25 08:48 Blood/Venous Blood Culture - Preliminary
Coagulase neg. staphylococcus
Additional testing on request
04/05/25 08:48 Blood/Venous Gram Stain - Final
04/05/25 20:20 Nose Nasal Screen MRSA (PCR) - Final
MRSA not detected - performed by PCR methodology.
04/05/25 08:48 Nasal Swab Influenza Types A & B (MELYSSA) - Final
Negative for Influenza A & B, NAAT
Negative results must be combined with clinical observations
and patient history.
Nucleic Acid Amplification test (NAAT)performed on the
[employer] platform.
Diagnostic Testing:
Physical Exam
-
HEENT: Normocephalic, Anicteric and Moist Mucous Membranes
Cardiovascular: S1/S2 and Regular Rhythm
Respiratory: Clear (overall diminished BL) and Non-Labored Respirations
GI: Soft, Non Distended and Non Tender
Neurology: Awake, Alert, Oriented and No Motor Deficits
Skin: Warm and Dry
General: Comfortable and Other (thin appearing)
Assessment
-
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
of breath, cough complaints and hypoxemia. He was noted late more confused over the last 2 days, his O2 saturation dropped into the low 70s. He was increased on his O2 requirements to 6 L. He does not use O2 at baseline. CT chest showing small
effusion, no other acute findings. We are consulted for evaluation.
Acute hypoxemic respiratory insufficiency, reportedly on 6L at home, weaned to 2L since admission
No baseline use noted in office
Small pleural effusion noted on chest imaging
Acute on chronic SOB
Anemia, BL Hb 12 -> 9.2
Poor PO intake, generalized weakness noted
Conditions present prior admission:
Stage IV NSCLC/right upper lung lung lesion: Status post XRT in 2019.
Now on Keytruda. Widespread osseous metastatic disease, retroperitoneum and bilateral pulmonary nodules
Initially diagnosed in 2019
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
Chronic HFpEF
Atrial fibrillation
Orthostatic hypotension
Dysphagia
Hypertension
Hyperlipidemia
BPH
Obstructive sleep apnea, severe
Central apnea
Hernia repair
Bilateral cataract surgery
Former smoker
Right shoulder pain status post ORIF
Malnutrition
Depression
Glaucoma
Plan
Hypoxemia noted on arrival, placed on 6L reportedly but this was reduced to 2L at this time
No history of baseline use per last office note
Home O2 evaluation eventually
Prior history of lung disease is noted including moderate COPD/PFT in September reviewed
Last seen in the office by Dr Boateng and had PFT demonstrating moderate obstruction, maintained on Anoro
CT of the chest obtained indicating small pleural effusion, proBNP 3670.
Echo 02/23/2025 showing normal function, no significant pulmonary hypertension.
Prior BNP similar
Cards eval obtained, no acute findings
May consider RHC if SOB is ongoing w/o contributing cause identified
CXR/CT reviewed, follow up chest US with effusion too small to tap
Would not attempt thora unless effusion has enlarged
Can repeat chest imaging as indicated--worsening SOB/hypoxemia
AECOPD may be contributing but he is not wheezing on exam
May consider IV steroids course if not improving
Weight loss noted, decreased PO intake
Dietary consult
Often poor dietary intake/malnutrition/loss of body mass may contribute or exacerbate SOB complaints
Optimize nutrition
TASIA and CSA history
Continue home ASV device while inpatient
Will need outpatient pulmonary evaluation in our office for PFTs and 6MWT
Reviewed plan of care with patient, no questions
We will follow
Diagnostic Data
Chest X-Ray:
CT Scan: CHEST 04/05/25- No pulmonary embolus. Moderate right pleural effusion. Small left pleural effusion. New. Moderate bibasilar consolidation concerning for pneumonia. Left greater than right. New. Stable band of scar tissue versus treated
neoplasm in the right upper lobe. Stable known mild osseous metastasis. Too small to characterize hypodense hepatic lesions likely small cysts or hemangiomas. Stable right-sided pulmonary nodules. Mild emphysematous disease.
Chest US 04/06- Trace right pleural effusion. Amount of fluid present not sufficient for safe thoracentesis.
Echo: 02/23/25- Normal left ventricular size and function. Normal regional wall motion. Left ventricular ejection fraction is 55-60% by visual assessment. Mildly dilated aortic root. Sinus of Valsalva measures 4.1 cm. Sinotubular junction measures
2.9 cm. Ascending aorta measures 4.1 cm. Since echo 11/18/24, there is no significant change.
PFT's: Spirometry 10/16/2024: FEV1 1.94 L 77%, FVC 2.90 L 83% ratio 0.65-moderate obstruction
Reports and relevant images were personally reviewed.
Total time spent on this consultation __75__ minutes which includes review of history, physical exam, medications, laboratory data, personal review of imaging, extensive review of outpatient records, discussion with care team and respiratory therapy.
--- NOTE | 2025-04-07 13:49 | CM ---
Following up on Patient. RN stated that the patient still sounds 'junky' in terms of his lungs. PT/OT recommended SNF. SABINO Gavin went to speak to the patient and his to ask if they were interested in SNF.
stated that it was difficult to get him out of bed per PT/OT, so now still not sure about SNF overall, BUT agreed to make a referral to [facility]. SABINO Gavin suggested IF they agree with SNF that they have a 2nd and 3rd choice so both will
look on Medicare.gov.
PLAN: Home PT vs SNF, referral made to [facility]
[2025-04-07] MEDS: CRESTOR 40 MG PO (17:35)
[2025-04-07] MEDS: XALATAN OPHTHALMIC SOLUTION 1 DROP BOTH EYES (20:43)
[2025-04-07] MEDS: REMERON 15 MG PO (21:04)
[2025-04-07] MEDS: NEURONTIN 300 MG PO (21:04)
--- NOTE | 2025-04-07 22:48 | PTCARENOTE ---
Patient utilizing IS and RT bedside to instruct pt on Acapella. Pt has a harsh productive cough, utilizing the [place] independently for secretions. Received pt on 2L NC. Oral care done. RT bedside to place pt on the BiPAP. Pt tolerating. Call torres
within reach.
[2025-04-08] VITALS (14 sets, daily range): BP systolic 99–127; BP diastolic 50–98; PULSE 2–93; BMI 19.4
--- NOTE | 2025-04-08 02:30 | DOWNTIME ---
There was a [employer] Downtime on 04/08/2025 from 0100 to 04/08/2025 at 0215. Downtime documentation of patient's care, including medication administrations, has been reconciled in the electronic record per guidelines. Refer to the
patient's paper chart under the miscellaneous tab to see printed paper medication records and downtime forms.
[2025-04-08] MEDS: MAXIPIME 1000 MG IV ×4 (05:00→23:30)
[2025-04-08] MEDS: STERILE WATER FOR INJECTION 10 ML IV ×4 (05:00→23:30)
[2025-04-08 05:11] LABS: Hematocrit 28.6 % (39.0-52.0); Hemoglobin 9.2 g/dL (13.0-18.0); Mean Corp Hgb Conc. 32.2 g/dL (33.0-37.0); Mean Corpuscular Volume 88.3 fL (80.0-94.0); Platelet Count 245 10^3/uL (130-400); Red Cell Dist. Width 17.9 % (11.5-14.5)
[2025-04-08 05:34] LABS: Blood Urea Nitrogen 23 mg/dl (9-20); Calcium 7.5 mg/dl (8.4-10.2); Carbon Dioxide 29 mmol/L (22-30); Chloride 104 mmol/L (98-107); Estimated Creatinine Clearance 79 ml/min; Glucose 122 mg/dl (70-99); Potassium 3.7 mmol/L (3.5-5.1); Sodium 136 mmol/L (135-145); eGFR > 60.00
[2025-04-08] MEDS: SODIUM CHLORIDE 3% FOR INHALATION 1 VIAL INH ×2 (07:28→19:25)
[2025-04-08] MEDS: DUONEB 3 ML INH ×2 (07:28→19:26)
[2025-04-08] MEDS: ADVAIR HFA 115/21 MCG INHALER 2 PUFF INH ×2 (07:29→19:24)
--- NOTE | 2025-04-08 07:46 | W.PN.ID1 ---
Date of Service
Date of Service: April 08, 2025
Today's Communication
Continue cefepime.
Assessment / Plan
Bilateral pneumonia
Normal white count with left shift
Hypoxemia
Elevated procalcitonin
Stage NSCLCa (s/p chemo/XRT); currently on Keytruda
CHF
HTN
Orthostatic hypotension
Recommendations:
Continue cefepime 1 gm IV q.6 hours for now.
Sputum cultures rejected secondary to saliva.
Follow white count and temperature curve.
Follow CXR.
Continue to monitor respiratory status.
Continue Acapella device and incentive spirometry.
����������������������������������������������������������
Chief Complaint
-: Pneumonia
Subjective / Review of Systems
Review of Systems: No Fever
Vital Signs / Physical Exam
Vital Signs
Vital Signs
Temp Pulse Resp BP Pulse Ox
98.2 F 106 18 104/63 95
04/08/25 03:00 04/08/25 07:34 04/08/25 07:34 04/08/25 06:00 04/08/25 07:34
Physical Exam
Constitutional: Comfortable, Chronically Ill and Non-toxic
Cardiovascular: Irregular Rate and S1/S2; Negative S3/S4
Pulmonary: Rhonchi (Scattered throughout), Coarse and Non Labored
Gastrointestinal: Soft and Non Tender
Genito-Urinary: Quarles (Condom cath) and Clear Urine
Extremities: Negative Edema, Cyanosis or Erythema
Skin: Warm and Dry
Psychological: Calm
Objective Data
Lab Data
Lab Results
04/08/25 04:53
04/08/25 04:53
Estimated Creat Clear 79 ml/min 04/08/25 04:53
Lactic Acid Cancelled 04/05/25 12:45
Total Bilirubin 0.6 mg/dl (0.2-1.3) 04/06/25 05:31
AST 21 U/L (17-59) 04/06/25 05:31
ALT 17 U/L (0-50) 04/06/25 05:31
Alkaline Phosphatase 85 U/L (38-126) 04/06/25 05:31
Most recent labs reviewed.
Micro Results:
04/06/25 20:32 Blood Culture - Preliminary
Blood/Venous No Growth in 24 hours- Final report to follow
04/06/25 17:17 Respiratory Culture - Preliminary
Sputum Usual Respiratory Karma
Gram Stain - Preliminary
04/06/25 10:49 Blood Culture - Preliminary
Blood/Venous No Growth in 24 hours- Final report to follow
04/07/25 05:46 Respiratory Culture - Pending
Sputum Gram Stain - Preliminary
04/05/25 09:46 Blood Culture - Preliminary
Blood/Venous No Growth in 48 hours- Final report to follow
04/05/25 08:48 Blood Culture - Preliminary
Blood/Venous Coagulase neg. staphylococcus
Additional testing on request
Gram Stain - Final
04/05/25 20:20 Nasal Screen MRSA (PCR) - Final
Nose MRSA not detected - performed by PCR methodology.
04/05/25 08:48 Influenza Types A & B (MELYSSA) - Final
Nasal Swab Negative for Influenza A & B, NAAT
Negative results must be combined with clinical observations
and patient history.
Nucleic Acid Amplification test (NAAT)performed on the
[employer] platform.
Imaging:
04/05/2025 CT chest (PE study): no pulmonary embolism. No aortic dissection. No pneumothorax. No abnormal pleural or parenchymal masses. Moderate right pleural effusion noted. Moderate consolidation in the left lower lobe concerning for
pneumonia. There is also moderate right lower lobe consolidation. A spiculated band of tissue in the right upper lobe measures 4.1 x 2.2 cm and stable from prior imaging. A solid noncalcified spiculated nodule in the right middle lobe is noted.
Mediastinum is normal. No hilar or mediastinal lymphadenopathy.
--- NOTE | 2025-04-08 08:40 | W.PN.HOSP.TC ---
Today's Communication/Plan
-
Pulmonology recommendation
� Dexamethasone IV 4 mg every 12 hours started 04/08/2025
� May consider right heart cath if SOB continues and etiology not identified
� Outpatient follow-up (Dr. Boateng) With PFTs and 6-minute walking test
� Optimize nutrition and dietary consult to help with shortness of breath
� Thoracentesis not indicated right now as effusion is small
� May repeat chest imaging if worsening SOB/hypoxemia.
Cardiology recommendations
Bifascicular block, right BBB, left anterior fascicular block
� Furosemide 20 mg daily p.o.
� Amiodarone 20 mg twice daily for 4 weeks then 200 mg daily
� Eliquis 2.5 mg twice daily (lower dose due to cachexia, 6 months from 80 years old, increased bleeding risk with amiodarone close
� Cardiology scheduled follow-up 04/29/2025
Assessment / Plan
Assessment / Plan
IMPRESSION:
Mr. Adolfo Higgins is a 79yoM with a PMH notable for stage IV lung carcinoma (Keytruda, s/p radiotherapy), paroxysmal A-fib (Eliquis), right shoulder arthritis (sp ORIF, on oxycodone, fentanyl, ibuprofen), orthostatic hypotension (midodrine), who
presents from [facility] with acute on chronic productive cough and hypoxia.
PLAN:
#Sepsis�pneumonia
- hypoxia, productive cough, fever x 1. Moderate bibasilar consolations concerning for pneumonia on CT. Multifactorial: Pneumonia, heart failure, immune related pneumonitis
� Blood cultures: 1 culture positive for Staphylococcus species. Other culture no growth to date. Repeat blood culture pending
� Cefepime 04/06/2025� . Vancomycin and Zosyn 04/05/2025.
- Per ID, switched to cefepime from Zosyn, and discontinued vancomycin due to negative MRSA on 04/06/25.
#Bilateral pleural effusions
Moderate right pleural effusion and small left pleural effusion on CT
� BiPAP weaned to 1.5 L NC
� Anticipated thoracentesis of moderate right pleural effusion not performed due to the pleural effusion being too small to outweigh the risks at this
Pulmonology consulted
� Dexamethasone IV 4 mg every 12 hours started 04/08/2025
� May consider right heart cath if SOB continues and etiology not identified
� Outpatient follow-up (Dr. Boateng) With PFTs and 6-minute walking test
� Optimize nutrition and dietary consult to help with shortness of breath
� Thoracentesis not indicated right now as effusion is small
� May repeat chest imaging if worsening SOB/hypoxemia.
#Productive cough
� Started Mucinex, Acapella, and chest physiotherapy. Will resume CPAP at night.
� Pulmonology consulted. Pending recommendations regarding thoracentesis.
#A-fib with RVR
Spontaneously converted back into sinus rhythm before amiodarone
� Furosemide 20 mg daily p.o.
� Amiodarone 20 mg twice daily for 4 weeks then 200 mg daily
� Eliquis 2.5 mg twice daily (decreased to 5 mg due to cachexia, 6 months from 80 years old, increased bleeding risk with amiodarone close
� Cardiology scheduled follow-up 04/29/2025
� Amiodarone 200 mg p.o. daily started 04/06/2025
� Beta radha discontinued previously due to soft blood pressures
#Chronic HFpEF
� Echo 02/23/25: Mildly dilated aortic root. LV EF 55 to 60%. Normal LV size and function. Normal regional wall motion
� Daily weights, I/O
� BNP 3670 positive
� Troponin I elevated at 0.035; history of elevated troponin I
Cardiology signed off
# NSCLC, stage IV
#Widespread osseous metastatic disease.
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 Bilateral pulmonary nodules, likely metastases
� Keytruda infusion every 3 weeks. Finished radiotherapy.
� Follows with Dr. Sandoval
� Xgeva every 6 weeks to prevent pathologic fractures
� Calcium carbonate 1000 mg p.o. twice daily, vitamin D 50 mcg p.o. twice daily
� Hematology�oncology consult: Continue outpatient lung cancer therapy
#Orthostatic hypotension
He took sodium chloride p.o. at home for hyponatremia and hypotension
� Midodrine 10 mg p.o. 3 times daily
#Right shoulder pain
S/p ORIF
� Oxycodone 5 mg p.o. every 6 as needed, fentanyl patch 25 mcg every 72 hours, gabapentin 300 mg p.o. nightly
� Holding ibuprofen due to risk of increased bleeding in combination with Eliquis
#Malnutrition
� Calcium 7.5, albumin 2.8, calcium corrected to albumin is 8.5 (04/06/2025)
#COPD: Continue home inhalers: Albuterol, fluticasone salmeterol
#Depression: Mirtazapine 15 mg p.o. nightly
#Hyperlipidemia: Continue home rosuvastatin 40 mg p.o. every afternoon
#Glaucoma: Latanoprost, Brinzolamide/brimonidine
CODE STATUS: DNR and DNI
DVT prophylaxis: Eliquis 2.5 mg p.o. twice daily
Diet: Regular
Dispo: PT OT consult. Came from [facility]
Attempted to call son twice, but sent to voicemail
Anticipated Discharge: 24 - 48 hours
Subjective/Interval History
-
Date of Service: April 08, 2025
No acute events overnight. Patient had a restful sleep with CPAP. Patient reports his cough is worse with more mucus. He received respiratory therapy treatment with Acapella and chest physiotherapy yesterday as well as Mucinex.
Objective Data
-
Labs:
Laboratory Results
04/08/25
04:53
WBC 4.9
Hgb 9.2 L
Hct 28.6 L
Plt Count 245
Sodium 136
Potassium 3.7
Chloride 104
Carbon Dioxide 29
BUN 23 H
Creatinine 0.5 L
Glucose 122 H
Calcium 7.5 L
Vital Signs:
Vital Signs
Temp Pulse Resp BP Pulse Ox
98.2 F 106 18 104/63 95
04/08/25 03:00 04/08/25 07:34 04/08/25 07:34 04/08/25 06:00 04/08/25 07:34
I&O
04/07/25 04/08/25 04/09/25
06:59 06:59 06:59
Intake Total 660 / 660
Output Total 450 / 450 1000 / 1000
Balance -450 / -450 -340 / -340
Review of Systems
-
History Source: Patient
Constitutional: Denies Fever
EENT: Reports No Symptoms Reported
Respiratory: Reports Cough; Denies Trouble Breathing
Cardiac: Denies Palpitations
Abdomen/GI: Denies Abdominal Pain
Musculoskeletal: Reports Joint Pain (Right shoulder)
Skin: Reports No Symptoms
Neuro: Reports No Symptoms
Physical Exam
-
General: Well Developed and Well Nourished
HEENT: Normocephalic, Atraumatic, Moist Mucous Membranes, Anicteric, Nose Appears Normal and Ears Appear Normal
Respiratory: Rhonchi (Rhonchi in anterior lung concepcion bilaterally)
Cardiac: Regular Rhythm and S1/S2
GI: Soft, Nontender, Nondistended and Normal Bowel Sounds
Genito-urinary: Quarles (Quarles bag with orange urine)
Skin: Warm and Dry
Neuro: Awake, Alert, Oriented, Nonfocal/Grossly Intact and Central Nerve's Intact
Psych: Calm
--- NOTE | 2025-04-08 09:07 | W.PN.PUL3 ---
Today's Communication / Plan
-
Does not feel better in terms of SOB
Will add IV steroids
He is maintained on lasix PO, with some minimal output
If not improving, may need to consider RHC
Assessment
-
Patient is a 79-year-old male with previous history of stage IV cancer with widespread metastases to bone/peritoneum, COPD, A-fib on Eliquis, orthostatic hypotension on chronic midodrine presenting from [facility] with acute on chronic shortness
of breath, cough complaints and hypoxemia. He was noted late more confused over the last 2 days, his O2 saturation dropped into the low 70s. He was increased on his O2 requirements to 6 L. He does not use O2 at baseline. CT chest showing small
effusion, no other acute findings. We are consulted for evaluation.
Acute hypoxemic respiratory insufficiency, reportedly on 6L at home, weaned to 2L since admission
No baseline use noted in office
Small pleural effusion noted on chest imaging
Acute on chronic SOB
Anemia, BL Hb 12 -> 9.2
Poor PO intake, generalized weakness noted
Conditions present prior admission:
Stage IV NSCLC/right upper lung lung lesion: Status post XRT in 2019.
Now on Keytruda. Widespread osseous metastatic disease, retroperitoneum and bilateral pulmonary nodules
Initially diagnosed in 2019
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
Chronic HFpEF
Atrial fibrillation
Orthostatic hypotension
Dysphagia
Hypertension
Hyperlipidemia
BPH
Obstructive sleep apnea, severe
Central apnea
Hernia repair
Bilateral cataract surgery
Former smoker
Right shoulder pain status post ORIF
Malnutrition
Depression
Glaucoma
Plan
Hypoxemia noted on arrival, placed on 6L reportedly but this was reduced to 2L at this time
No history of baseline use per last office note
Home O2 evaluation eventually
Prior history of lung disease is noted including moderate COPD/PFT in September reviewed
Last seen in the office by Dr Boateng and had PFT demonstrating moderate obstruction, maintained on Anoro
CT of the chest obtained indicating small pleural effusion, proBNP 3670.
Echo 02/23/2025 showing normal function, no significant pulmonary hypertension.
Prior BNP similar
Cards eval obtained, no acute findings
May consider RHC if SOB is ongoing w/o contributing cause identified
CXR/CT reviewed, follow up chest US with effusion too small to tap
Would not attempt thora unless effusion has enlarged
Can repeat chest imaging as indicated--worsening SOB/hypoxemia
AECOPD may be contributing but he is not wheezing on exam
Will add IV steroids course
Weight loss noted, decreased PO intake
Dietary consult
Often poor dietary intake/malnutrition/loss of body mass may contribute or exacerbate SOB complaints
Optimize nutrition
TASIA and CSA history
Continue home ASV device while inpatient
Will need outpatient pulmonary evaluation in our office for PFTs and 6MWT
Reviewed plan of care with patient, no questions
Diagnostic Data
Chest X-Ray:
CT Scan: CHEST 04/05/25- No pulmonary embolus. Moderate right pleural effusion. Small left pleural effusion. New. Moderate bibasilar consolidation concerning for pneumonia. Left greater than right. New. Stable band of scar tissue versus treated
neoplasm in the right upper lobe. Stable known mild osseous metastasis. Too small to characterize hypodense hepatic lesions likely small cysts or hemangiomas. Stable right-sided pulmonary nodules. Mild emphysematous disease.
Chest US 04/06- Trace right pleural effusion. Amount of fluid present not sufficient for safe thoracentesis.
Echo: 02/23/25- Normal left ventricular size and function. Normal regional wall motion. Left ventricular ejection fraction is 55-60% by visual assessment. Mildly dilated aortic root. Sinus of Valsalva measures 4.1 cm. Sinotubular junction measures
2.9 cm. Ascending aorta measures 4.1 cm. Since echo 11/18/24, there is no significant change.
PFT's: Spirometry 10/16/2024: FEV1 1.94 L 77%, FVC 2.90 L 83% ratio 0.65-moderate obstruction
Reports and relevant images were personally reviewed.
Total time spent on this consultation __51__ minutes which includes review of history, physical exam, medications, laboratory data, personal review of imaging, extensive review of outpatient records, discussion with care team and respiratory therapy.
Subjective Data
-
Date of Service:
Date of Service: April 08, 2025
Chief Complaint: Pulmonary Follow Up
Subjective:
SOB not improved
Feels about the same
Objective Data
Data Reviewed
Vital Signs / I&O / Oxygen:
Vital Signs
Temp Pulse Resp BP Pulse Ox
99 F 106 18 104/63 95
04/08/25 07:30 04/08/25 07:34 04/08/25 07:34 04/08/25 06:00 04/08/25 07:34
Intake and Output
04/07/25 04/08/25 04/09/25
06:59 06:59 06:59
Intake Total 660 / 660
Output Total 450 / 450 1000 / 1000
Balance -450 / -450 -340 / -340
SaO2 95
Nasal Cannula flow liters per 2
minute
Physical Exam
General: Comfortable and Other (thin, chronically ill appearing)
HEENT: Normocephalic and Sinus Tenderness
Cardiovascular: S1-S2 and Regular Rhythm
Respiratory: Crackles and Non-Labored Respirations
GI: Soft, Non Distended and Non Tender
Neurology: Awake, Alert, Oriented and No Motor Deficits
Skin: Warm, Dry and Good Color
Labs/Micro/Reports
Lab Data
04/08/25 04:53
04/08/25 04:53
Microbiology
04/05/25 08:48 Blood/Venous Blood Culture - Final
Coagulase neg. staphylococcus
Additional testing on request
04/05/25 08:48 Blood/Venous Gram Stain - Final
04/06/25 20:32 Blood/Venous Blood Culture - Preliminary
No Growth in 24 hours- Final report to follow
04/06/25 17:17 Sputum Respiratory Culture - Preliminary
Usual Respiratory Karma
04/06/25 17:17 Sputum Gram Stain - Preliminary
04/06/25 10:49 Blood/Venous Blood Culture - Preliminary
No Growth in 24 hours- Final report to follow
04/07/25 05:46 Sputum Gram Stain - Preliminary
04/05/25 09:46 Blood/Venous Blood Culture - Preliminary
No Growth in 48 hours- Final report to follow
04/05/25 20:20 Nose Nasal Screen MRSA (PCR) - Final
MRSA not detected - performed by PCR methodology.
04/05/25 08:48 Nasal Swab Influenza Types A & B (MELYSSA) - Final
Negative for Influenza A & B, NAAT
Negative results must be combined with clinical observations
and patient history.
Nucleic Acid Amplification test (NAAT)performed on the
[employer] platform.
--- NOTE | 2025-04-08 09:27 | W.PN.UPDATE ---
Update Note
Progress Note Update
Recorded bed scale weights are up and down, but overall negative by I&O data. Patient was diuresed with Lasix 20 mg IV daily and has been recommended Lasix 20 mg PO daily upon discharge to home. Patient with known paroxysmal A-fib and had a
recurrence of A-fib with RVR this admission that spontaneously converted to sinus after which patient was loaded with amiodarone. Recommend amiodarone 200 mg BID for 4 weeks then 200 mg daily thereafter and patient will continue Eliquis, but at a
lower dose of 2.[address] Balderas due to cachexia and that patient is within 6 months of his 80th birthday plus increased risk of bleeding with addition of amiodarone. Patient is being referred to [facility] for rehab and cardiology follow-up
is arranged for 04/29/2025. We will sign off please call back with questions.
[2025-04-08] MEDS: VITAMIN D3 (cholecalciferol) 50 MCG PO ×2 (09:43→21:00)
[2025-04-08] MEDS: PROTONIX 40 MG PO (09:43)
[2025-04-08] MEDS: MUCINEX 1200 MG PO ×2 (09:43→21:00)
[2025-04-08] MEDS: SODIUM CHLORIDE 1 GRAM PO ×2 (09:43→21:00)
[2025-04-08] MEDS: MAGNESIUM OXIDE 400 MG PO (09:44)
[2025-04-08] MEDS: ELIQUIS 2.5 MG PO ×2 (09:47→20:59)
[2025-04-08] MEDS: PACERONE 200 MG PO ×2 (09:47→21:00)
[2025-04-08] MEDS: LASIX 20 MG PO (09:47)
[2025-04-08] MEDS: OSCAL CAL 500 1000 MG PO ×2 (09:48→21:00)
[2025-04-08] MEDS: METAMUCIL, KONSYL 1 PACKET PO (09:48)
[2025-04-08] MEDS: HYDROCORTISONE 1% LOTION 1 APPLIC TOPICAL (09:51)
[2025-04-08] MEDS: SIMBRINZA 1%-0.2% OPHTH SUSP 1 DROP RIGHT EYE ×2 (10:11→21:01)
[2025-04-08] MEDS: SANTYL OINTMENT 1 APPLIC TOPICAL (10:11)
--- NOTE | 2025-04-08 10:41 | W.PN.UPDATE ---
Update Note
Progress Note Update
I saw and evaluated the patient. I reviewed the resident�s note and agree with findings and plan as documented in the resident�s note.
No new complaints.
Gen: NAD, Awake and alert, appears chronically ill and malnourished/cachectic
Eyes: EOMI, PERRLA, no scleral icterus.
Neck: supple.
CV: remains irreg/irreg, +S1/S2, no m/r/g.
Resp: CTAB anteriorly
Abd: remains +BS, soft, NT, ND
Skin: No rashes. very trace LE edema
Neuro: CN 2-12 intact, non-focal.
Psych: Normal mood and affect.
04/07/25 05:46 Sputum Respiratory Culture - Preliminary
Nohemi albicans
04/07/25 05:46 Sputum Gram Stain - Preliminary
04/06/25 17:17 Sputum Respiratory Culture - Final
Usual Respiratory Karma
04/06/25 17:17 Sputum Gram Stain - Final
04/05/25 09:46 Blood/Venous Blood Culture - Preliminary
No Growth in 72 hours- Final report to follow
04/05/25 08:48 Blood/Venous Blood Culture - Final
Coagulase neg. staphylococcus
Additional testing on request
04/05/25 08:48 Blood/Venous Gram Stain - Final
04/06/25 20:32 Blood/Venous Blood Culture - Preliminary
No Growth in 24 hours- Final report to follow
04/06/25 10:49 Blood/Venous Blood Culture - Preliminary
No Growth in 24 hours- Final report to follow
04/05/25 20:20 Nose Nasal Screen MRSA (PCR) - Final
MRSA not detected - performed by PCR methodology.
04/05/25 08:48 Nasal Swab Influenza Types A & B (MELYSSA) - Final
Negative for Influenza A & B, NAAT
Negative results must be combined with clinical observations
and patient history.
Nucleic Acid Amplification test (NAAT)performed on the
[employer] platform.
CTA chest: No PE. Moderate R pleural effusion. Small L pleural effusion. New. Moderate bibasilar consolidation concerning for pneumonia. Left greater than right. New. Stable band of scar tissue versus treated neoplasm in the right upper lobe. Stable
known mild osseous metastasis. Too small to characterize hypodense hepatic lesions likely small cysts or hemangiomas. Stable right-sided pulmonary nodules. Mild emphysematous disease.
Severe sepsis and acute hypoxemic respiratory failure due to B/L PNA and (now) acute COPD Exac:
-Patient received 1 L normal saline in the ER. I would not give this patient the full 30cc/kg bolus due to history of congestive heart failure, stable blood pressure, pleural effusions concerning for acute CHF.
-Procalcitonin is noted but should not have been ordered in a patient with malignancy, it is not interpretable
-on RA at baseline, was on 4L NC O2 on admission (note was on 6L NC O2 at [place] 1 day RN ELIGIBILITY), now weaned to 2L NC O2
-severe sepsis a/e/b tachypnea, fever (temp 100.3 F constitutes a fever in an immunocompromised patient), tachycardia, source PNA
-B/L pleural effusions are concerning for acute on chronic heart failure with preserved ejection fraction. In the setting of severe sepsis due to pneumonia, no further IV fluids were given after the ER.
-cardiology saw in c/s
-cont Lasix 20mg IV daily, daily wts, I/Os
-COVID/Flu NEG
-cont Cefepime as per ID
-despite imaging with mod R pleural effusion there is not enough fluid to tap as per IR
-pulm following
-start IV Decadron for acute COPD Exac. Note, pt with moderate obstruction on recent PFTs.
-cont Striverdi/Spiriva
PAF with RVR:
-RVR due to severe sepsis
-in the recent past pt's BB was stopped due to syncope, bradycardia, orthostatic hypotension
-cont Eliquis/amio
Acute on chronic HFpEF:
-was on Lasix in the past which was stopped due to orthostatic hypotension
-possible acute on chronic HFpEF as above
-was diuresed with IV Lasix, now transitioned to PO Lasix
-daily wts, I/Os
Other problems:
Moderate protein calorie malnutrition
Stage 2 coccyx pressure injury, POA
Orthostatic hypotension: cont Midodrine, place abd binder/TEDs PRN
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 Sandoval outpt
Chronic Pain with chronic opioid use with dependence: due to bone metastasis/cancer related pain, cont fentanyl patch/oxycodone/gabapentin, cont bowel regimen
COPD without Acute Exacerbation: moderate obstruction on recent PFTs, cont Striverdi/Spiriva
TASIA: BIPAP HS
Chronic right shoulder pain: due to severe OA and rotator cuff tear. Note, pt had been on NSAIDs in the setting of being on Eliquis due to severe pain refractory to narcotics, Neurontin, etc after extensive discussions with pain management and
cardiology.
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
DNR/I
--- NOTE | 2025-04-08 12:00 | PTCARENOTE ---
Addendum entered by Fabby Najera RN 04/08/25 19:36:
wrong patient
Original Note:
Patient to be discharged to home today after working with PT/OT.
[2025-04-08] MEDS: DECADRON 4 MG IV ×2 (12:54→20:59)
--- NOTE | 2025-04-08 17:17 | W.PN.UPDATE ---
Update Note
Progress Note Update
Patient requested ibuprofen for right shoulder pain. He is on Eliquis. He has been taking NSAIDs and Eliquis outpatient. He is aware of the increased bleeding risk of taking NSAID and anticoagulant at the same time, he feels comfortable doing so
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
--- NOTE | 2025-04-08 17:30 | SUR.OPER ---
Patient complaining of his chronic right shoulder pain. Patient refused his prn tylenol and oxycodone. Obtained one time order for ibuprofen from resident. Applied lidocaine cream to shoulder as per MD order. Difficult to complete nursing care
with patient's shoulder pain and limited range of motion. pATIENT
[2025-04-08] MEDS: MOTRIN 400 MG PO (17:34)
[2025-04-08] MEDS: CRESTOR 40 MG PO (17:35)
[2025-04-08] MEDS: LMX 4 1 APPLIC TOPICAL (17:38)
[2025-04-08] MEDS: NEURONTIN 300 MG PO (20:59)
[2025-04-08] MEDS: REMERON 15 MG PO (21:00)
[2025-04-08] MEDS: XALATAN OPHTHALMIC SOLUTION 1 DROP BOTH EYES (21:01)
--- NOTE | 2025-04-08 22:28 | PTCARENOTE ---
Assumed care of pt at 1900. Pt is A/O x4, pleasant and cooperative with care but particular about some aspects of his care. Forgetful at times. No pain, pt states that the ibuprofen he received during dayshift helped. Pt on 2LNC, maintaining SpO2
93-95%, when he takes off his O2 he will drop to 87%. Moist productive cough, pt able to suction himself with yankauer. AFib on monitor with BBB. See nursing shift assessment flowsheet for full physical assessment details. Placed on bipap by RT at
approx 2230.
[2025-04-08] MEDS: DURAGESIC 12 MCG/HR PATCH 1 PATCH TRANSDERM (23:29)
[2025-04-08] MEDS: DURAGESIC 25 MCG/HR PATCH 1 PATCH TRANSDERM (23:30)
[2025-04-09] VITALS (17 sets, daily range): BP systolic 86–132; BP diastolic 43–86; PULSE 2–87; O2SAT 94–96; BMI 19.0
--- NOTE | 2025-04-09 00:34 | PTCARENOTE ---
Pt removed bipap at around 2305, stated that he 'couldn't do it anymore' and it was hard to breathe/felt like he was suffocating with the mask on. Placed back on 2LNC, RT notified via [facility] [employer].
[2025-04-09] MEDS: SANTYL OINTMENT 1 APPLIC TOPICAL (04:37)
[2025-04-09 04:45] LABS: Hematocrit 27.8 % (39.0-52.0); Hemoglobin 9.1 g/dL (13.0-18.0); Mean Corp Hgb Conc. 32.7 g/dL (33.0-37.0); Mean Corpuscular Volume 86.3 fL (80.0-94.0); Platelet Count 247 10^3/uL (130-400); Red Cell Dist. Width 17.8 % (11.5-14.5)
[2025-04-09 05:19] LABS: Blood Urea Nitrogen 23 mg/dl (9-20); Calcium 8.0 mg/dl (8.4-10.2); Carbon Dioxide 27 mmol/L (22-30); Chloride 103 mmol/L (98-107); Estimated Creatinine Clearance 78 ml/min; Glucose 236 mg/dl (70-99); Potassium 4.2 mmol/L (3.5-5.1); Sodium 135 mmol/L (135-145); eGFR > 60.00
[2025-04-09] MEDS: MAXIPIME 1000 MG IV ×4 (05:47→23:17)
[2025-04-09] MEDS: STERILE WATER FOR INJECTION 10 ML IV ×4 (05:47→23:17)
[2025-04-09] MEDS: SODIUM CHLORIDE 3% FOR INHALATION 1 VIAL INH ×2 (07:52→20:00)
[2025-04-09] MEDS: DUONEB 3 ML INH ×2 (07:52→20:00)
[2025-04-09] MEDS: ADVAIR HFA 115/21 MCG INHALER 2 PUFF INH ×2 (07:53→20:00)
--- NOTE | 2025-04-09 08:23 | W.PN.HOSP.TC ---
Today's Communication/Plan
-
Sputum culture grew Nohemi albicans, but the specimen consist primarily of oropharyngeal contamination and repeat collection is recommended. ID recommends continuing cefepime, and transitioning to cefdinir at discharge.
Pulmonology cleared patient for discharge. Patient will be discharged on a steroid taper with prednisone starting at 40 mg for 3 days.
Assessment / Plan
Assessment / Plan
IMPRESSION:
Mr. Adolfo Higgins is a 79yoM with a PMH notable for stage IV lung carcinoma (Keytruda, s/p radiotherapy), paroxysmal A-fib (Eliquis), right shoulder arthritis (sp ORIF, on oxycodone, fentanyl, ibuprofen), orthostatic hypotension (midodrine), who
presents from [facility] with acute on chronic productive cough and hypoxia.
PLAN:
#Sepsis�pneumonia
- hypoxia, productive cough, fever x 1. Moderate bibasilar consolations concerning for pneumonia on CT. Multifactorial: Pneumonia, heart failure, immune related pneumonitis
� Blood cultures: 1 culture positive for Staphylococcus species. Other culture no growth to date. Repeat blood culture pending
� Cefepime 04/06/2025At discharge, transitioned to cefdinir 300 mg p.o. twice daily for 5 to 7 days.
- Vancomycin and Zosyn 04/05/2025. Per ID, switched to cefepime from Zosyn, and discontinued vancomycin due to negative MRSA on 04/06/25.
#Bilateral pleural effusions
Moderate right pleural effusion and small left pleural effusion on CT
� BiPAP weaned to 1.5 L NC
� Anticipated thoracentesis of moderate right pleural effusion not performed due to the pleural effusion being too small to outweigh the risks at this
Pulmonology consulted
� Dexamethasone IV 4 mg every 12 hours started 04/08/2025. At discharge, transitioned to prednisone p.o. 40 mg for 3 days, 30 mg for 3 days, 20 mg for 3 days, 10 mg for 3 days
� May consider right heart cath if SOB continues and etiology not identified
� Outpatient follow-up (Dr. Boateng) With PFTs and 6-minute walking test
� Optimize nutrition and dietary consult to help with shortness of breath
� Thoracentesis not indicated right now as effusion is small
� May repeat chest imaging if worsening SOB/hypoxemia.
#Productive cough
� Started Mucinex, Acapella, and chest physiotherapy. Will resume CPAP at night.
� Pulmonology consulted. Pending recommendations regarding thoracentesis.
#A-fib with RVR
Spontaneously converted back into sinus rhythm before amiodarone
� Furosemide 20 mg daily p.o.
� Amiodarone 20 mg twice daily for 4 weeks then 200 mg daily
� Eliquis 2.5 mg twice daily (decreased to 5 mg due to cachexia, 6 months from 80 years old, increased bleeding risk with amiodarone close
� Cardiology scheduled follow-up 04/29/2025
� Amiodarone 200 mg p.o. daily started 04/06/2025
� Beta radha discontinued previously due to soft blood pressures
#Chronic HFpEF
� Echo 02/23/25: Mildly dilated aortic root. LV EF 55 to 60%. Normal LV size and function. Normal regional wall motion
� Daily weights, I/O
� BNP 3670 positive
� Troponin I elevated at 0.035; history of elevated troponin I
Cardiology signed off
# NSCLC, stage IV
#Widespread osseous metastatic disease.
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 Bilateral pulmonary nodules, likely metastases
� Keytruda infusion every 3 weeks. Finished radiotherapy.
� Follows with Dr. Sandoval
� Xgeva every 6 weeks to prevent pathologic fractures
� Calcium carbonate 1000 mg p.o. twice daily, vitamin D 50 mcg p.o. twice daily
� Hematology�oncology consult: Continue outpatient lung cancer therapy
#Orthostatic hypotension
He took sodium chloride p.o. at home for hyponatremia and hypotension
� Midodrine 10 mg p.o. 3 times daily
#Right shoulder pain
S/p ORIF
� Oxycodone 5 mg p.o. every 6 as needed, fentanyl patch 25 mcg every 72 hours, gabapentin 300 mg p.o. nightly
� Holding ibuprofen due to risk of increased bleeding in combination with Eliquis
#Malnutrition
� Calcium 7.5, albumin 2.8, calcium corrected to albumin is 8.5 (04/06/2025)
#COPD: Continue home inhalers: Albuterol, fluticasone salmeterol
#Depression: Mirtazapine 15 mg p.o. nightly
#Hyperlipidemia: Continue home rosuvastatin 40 mg p.o. every afternoon
#Glaucoma: Latanoprost, Brinzolamide/brimonidine
CODE STATUS: DNR and DNI
DVT prophylaxis: Eliquis 2.5 mg p.o. twice daily
Diet: Regular
Dispo: PT OT consult. Came from [facility]
Attempted to call son twice, but sent to voicemail
Anticipated Discharge: Today
Subjective/Interval History
-
Date of Service: April 09, 2025
No acute events overnight. Nurse reported that he only wore his CPAP for less than an hour last night.
States that his breathing and cough feel since yesterday. He denies fevers and chills. Denies abdominal pain.
When asked if he was willing to try to take Tylenol more frequently, as opposed to ibuprofen, given the increased bleeding risk of ibuprofen combination with Eliquis, he was amenable to using Tylenol instead.
Objective Data
-
Labs:
Laboratory Results
04/09/25
04:30
WBC 5.2
Hgb 9.1 L
Hct 27.8 L
Plt Count 247
Sodium 135
Potassium 4.2
Chloride 103
Carbon Dioxide 27
BUN 23 H
Creatinine 0.4 L
Glucose 236 H
Calcium 8.0 L
Vital Signs:
Vital Signs
Temp Pulse Resp BP Pulse Ox
97.4 F 73 15 129/59 97
04/09/25 03:00 04/09/25 06:00 04/09/25 06:00 04/09/25 06:00 04/09/25 06:00
I&O
04/08/25 04/09/25 04/10/25
06:59 06:59 06:59
Intake Total 660 / 660 1015 / 1015
Output Total 1000 / 1000 1810 / 1810
Balance -340 / -340 -795 / -795
Review of Systems
-
History Source: Patient
Constitutional: Reports No Symptoms; Denies Fever
EENT: Reports No Symptoms Reported
Respiratory: Reports Cough
Cardiac: Reports No Symptoms
Abdomen/GI: Reports No Symptoms
Genitourinary: Reports No Symptoms
Musculoskeletal: Reports Joint Pain (Right shoulder)
Physical Exam
-
General: Well Developed, No Apparent Distress, Comfortable and Cachectic
HEENT: Normocephalic, Atraumatic, Moist Mucous Membranes, Anicteric, Nose Appears Normal and Ears Appear Normal
Respiratory: Clear to Auscultation
Cardiac: S1/S2 and Irregular Rhythm
GI: Soft, Nontender, Nondistended, Normal Bowel Sounds and Flat
Musculoskeletal: No Clubbing, No Cyanosis and No Edema
Skin: Warm and Dry
Neuro: Awake, Alert and Oriented
Psych: Calm
--- NOTE | 2025-04-09 08:44 | W.PN.UPDATE ---
Update Note
Progress Note Update
I saw and evaluated the patient. I reviewed the resident�s note and agree with findings and plan as documented in the resident�s note.
No new complaints.
Gen: NAD, Awake and alert, appears chronically ill and malnourished/cachectic
Eyes: EOMI, PERRLA, no scleral icterus.
Neck: supple.
CV: continues to remain irreg/irreg, +S1/S2, no m/r/g.
Resp: remains CTAB anteriorly
Abd: continues to remain +BS, soft, NT, ND
Skin: No rashes. very trace LE edema
Neuro: CN 2-12 intact, non-focal.
Psych: Normal mood and affect.
04/06/25 20:32 Blood/Venous Blood Culture - Preliminary
No Growth in 48 hours- Final report to follow
04/06/25 10:49 Blood/Venous Blood Culture - Preliminary
No Growth in 48 hours- Final report to follow
04/07/25 05:46 Sputum Respiratory Culture - Preliminary
Nohemi albicans
04/07/25 05:46 Sputum Gram Stain - Preliminary
04/06/25 17:17 Sputum Respiratory Culture - Final
Usual Respiratory Karma
04/06/25 17:17 Sputum Gram Stain - Final
04/05/25 09:46 Blood/Venous Blood Culture - Preliminary
No Growth in 72 hours- Final report to follow
04/05/25 08:48 Blood/Venous Blood Culture - Final
Coagulase neg. staphylococcus
Additional testing on request
04/05/25 08:48 Blood/Venous Gram Stain - Final
04/05/25 20:20 Nose Nasal Screen MRSA (PCR) - Final
MRSA not detected - performed by PCR methodology.
04/05/25 08:48 Nasal Swab Influenza Types A & B (MELYSSA) - Final
Negative for Influenza A & B, NAAT
Negative results must be combined with clinical observations
and patient history.
Nucleic Acid Amplification test (NAAT)performed on the
[employer] platform.
CTA chest: No PE. Moderate R pleural effusion. Small L pleural effusion. New. Moderate bibasilar consolidation concerning for pneumonia. Left greater than right. New. Stable band of scar tissue versus treated neoplasm in the right upper lobe. Stable
known mild osseous metastasis. Too small to characterize hypodense hepatic lesions likely small cysts or hemangiomas. Stable right-sided pulmonary nodules. Mild emphysematous disease.
Severe sepsis and acute hypoxemic respiratory failure due to B/L PNA and (now) acute COPD Exac:
-Patient received 1 L normal saline in the ER. I would not give this patient the full 30cc/kg bolus due to history of congestive heart failure, stable blood pressure, pleural effusions concerning for acute CHF.
-Procalcitonin is noted but should not have been ordered in a patient with malignancy, it is not interpretable
-on RA at baseline, was on 4L NC O2 on admission (note was on 6L NC O2 at SD 1 day [employer]), now weaned to 2L NC O2
-severe sepsis a/e/b tachypnea, fever (temp 100.3 F constitutes a fever in an immunocompromised patient), tachycardia, source PNA
-B/L pleural effusions are concerning for acute on chronic heart failure with preserved ejection fraction. In the setting of severe sepsis due to pneumonia, no further IV fluids were given after the ER.
-cardiology saw in c/s
-was diuresed with IV Lasix, now transitioned to PO Lasix, daily wts, I/Os
-COVID/Flu NEG
-cont Cefepime as per ID
-despite imaging with mod R pleural effusion there is not enough fluid to tap as per IR
-pulm following
-IV Decadron started for acute COPD Exac. Note, pt with moderate obstruction on recent PFTs.
-cont Striverdi/Spiriva
PAF with RVR:
-RVR due to severe sepsis
-in the recent past pt's BB was stopped due to syncope, bradycardia, orthostatic hypotension
-cont Eliquis/amio
Acute on chronic HFpEF:
-was on Lasix in the past which was stopped due to orthostatic hypotension
-Pt with acute on chronic HFpEF as above
-was diuresed with IV Lasix, now transitioned to PO Lasix
-daily wts, I/Os
Other problems:
Moderate protein calorie malnutrition
Stage 2 coccyx pressure injury, POA
Orthostatic hypotension: cont Midodrine, place abd binder/TEDs PRN
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 Sandoval outpt
Chronic Pain with chronic opioid use with dependence: due to bone metastasis/cancer related pain, cont fentanyl patch/oxycodone/gabapentin, cont bowel regimen
COPD without Acute Exacerbation: moderate obstruction on recent PFTs, cont Striverdi/Spiriva
TASIA: BIPAP HS
Chronic right shoulder pain: due to severe OA and rotator cuff tear. Note, pt had been on NSAIDs in the setting of being on Eliquis due to severe pain refractory to narcotics, Neurontin, etc after extensive discussions with pain management and
cardiology.
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
DNR/I
Dispo: begin discharge planning.
--- NOTE | 2025-04-09 09:12 | W.PN.PUL3 ---
Addendum entered and electronically signed by Sofia Mackey DO 04/10/25 09:06:
Patient is discharged now awaiting bed placement at SNF
We will sign off at this time, please call with questions
Original Note:
Today's Communication / Plan
-
Remains on o2, home O2 eval with set up if indicated
IV steroids can be transitioned to taper
We will arrange short term FU in our office
If need for RHC arises, he does follow with cards
Discharge planning otherwise per team, he wants to go home
Assessment
-
Patient is a 79-year-old male with previous history of stage IV cancer with widespread metastases to bone/peritoneum, COPD, A-fib on Eliquis, orthostatic hypotension on chronic midodrine presenting from [facility] with acute on chronic shortness
of breath, cough complaints and hypoxemia. He was noted late more confused over the last 2 days, his O2 saturation dropped into the low 70s. He was increased on his O2 requirements to 6 L. He does not use O2 at baseline. CT chest showing small
effusion, no other acute findings. We are consulted for evaluation.
Acute hypoxemic respiratory insufficiency, reportedly on 6L at home, weaned to 2L since admission
No baseline use noted in office
Small pleural effusion noted on chest imaging
Acute on chronic SOB
Anemia, BL Hb 12 -> 9.2
Poor PO intake, generalized weakness noted
Conditions present prior admission:
Stage IV NSCLC/right upper lung lung lesion: Status post XRT in 2019.
Now on Keytruda. Widespread osseous metastatic disease, retroperitoneum and bilateral pulmonary nodules
Initially diagnosed in 2019
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
Chronic HFpEF
Atrial fibrillation
Orthostatic hypotension
Dysphagia
Hypertension
Hyperlipidemia
BPH
Obstructive sleep apnea, severe
Central apnea
Hernia repair
Bilateral cataract surgery
Former smoker
Right shoulder pain status post ORIF
Malnutrition
Depression
Glaucoma
Plan
Hypoxemia noted on arrival, placed on 6L reportedly but this was reduced to 2L at this time
No history of baseline use per last office note
Home O2 evaluation w/ home set up
Prior history of lung disease is noted including moderate COPD/PFT in September reviewed
Last seen in the office by Dr Boateng and had PFT demonstrating moderate obstruction, maintained on Anoro
CT of the chest obtained indicating small pleural effusion, proBNP 3670.
Echo 02/23/2025 showing normal function, no significant pulmonary hypertension.
Prior BNP similar
Cards eval obtained, no acute findings
May consider RHC if SOB is ongoing w/o contributing cause identified
CXR/CT reviewed, follow up chest US with effusion too small to tap
Would not attempt thora unless effusion has enlarged
Can repeat chest imaging as indicated--worsening SOB/hypoxemia
AECOPD may be contributing but he is not wheezing on exam
Will add IV steroids course --can continue taper at discharge
Weight loss noted, decreased PO intake
Dietary consult
Often poor dietary intake/malnutrition/loss of body mass may contribute or exacerbate SOB complaints
Optimize nutrition
TASIA and CSA history
Continue home ASV device while inpatient
Will need outpatient pulmonary evaluation in our office for PFTs and 6MWT
Reviewed plan of care with patient, no questions
Discharge planning per team
Diagnostic Data
Chest X-Ray:
CT Scan: CHEST 04/05/25- No pulmonary embolus. Moderate right pleural effusion. Small left pleural effusion. New. Moderate bibasilar consolidation concerning for pneumonia. Left greater than right. New. Stable band of scar tissue versus treated
neoplasm in the right upper lobe. Stable known mild osseous metastasis. Too small to characterize hypodense hepatic lesions likely small cysts or hemangiomas. Stable right-sided pulmonary nodules. Mild emphysematous disease.
Chest US 04/06- Trace right pleural effusion. Amount of fluid present not sufficient for safe thoracentesis.
Echo: 02/23/25- Normal left ventricular size and function. Normal regional wall motion. Left ventricular ejection fraction is 55-60% by visual assessment. Mildly dilated aortic root. Sinus of Valsalva measures 4.1 cm. Sinotubular junction measures
2.9 cm. Ascending aorta measures 4.1 cm. Since echo 11/18/24, there is no significant change.
PFT's: Spirometry 10/16/2024: FEV1 1.94 L 77%, FVC 2.90 L 83% ratio 0.65-moderate obstruction
Reports and relevant images were personally reviewed.
Total time spent on this consultation __51__ minutes which includes review of history, physical exam, medications, laboratory data, personal review of imaging, extensive review of outpatient records, discussion with care team and respiratory therapy.
Subjective Data
-
Date of Service:
Date of Service: April 09, 2025
Chief Complaint: Pulmonary Follow Up
Subjective:
Remains on 2L but notes that his SOB is about the same
He still wishes to go home
Objective Data
Data Reviewed
Vital Signs / I&O / Oxygen:
Vital Signs
Temp Pulse Resp BP Pulse Ox
97.4 F 89 18 129/59 100
04/09/25 03:00 04/09/25 08:24 04/09/25 08:24 04/09/25 06:00 04/09/25 08:24
Intake and Output
04/08/25 04/09/25 04/10/25
06:59 06:59 06:59
Intake Total 660 / 660 1015 / 1015
Output Total 1000 / 1000 1810 / 1810
Balance -340 / -340 -795 / -795
SaO2 100
Nasal Cannula flow liters per 2
minute
Physical Exam
General: Comfortable and Other (thin, chronically ill appearing)
HEENT: Normocephalic and Sinus Tenderness
Cardiovascular: S1-S2 and Regular Rhythm
Respiratory: Crackles and Non-Labored Respirations
GI: Soft, Non Distended and Non Tender
Neurology: Awake, Alert, Oriented and No Motor Deficits
Skin: Warm, Dry and Good Color
Labs/Micro/Reports
Lab Data
04/09/25 04:30
04/09/25 04:30
Microbiology
04/06/25 20:32 Blood/Venous Blood Culture - Preliminary
No Growth in 48 hours- Final report to follow
04/06/25 10:49 Blood/Venous Blood Culture - Preliminary
No Growth in 48 hours- Final report to follow
04/07/25 05:46 Sputum Respiratory Culture - Preliminary
Nohemi albicans
04/07/25 05:46 Sputum Gram Stain - Preliminary
04/06/25 17:17 Sputum Respiratory Culture - Final
Usual Respiratory Karma
04/06/25 17:17 Sputum Gram Stain - Final
04/05/25 09:46 Blood/Venous Blood Culture - Preliminary
No Growth in 72 hours- Final report to follow
04/05/25 08:48 Blood/Venous Blood Culture - Final
Coagulase neg. staphylococcus
Additional testing on request
04/05/25 08:48 Blood/Venous Gram Stain - Final
04/05/25 20:20 Nose Nasal Screen MRSA (PCR) - Final
MRSA not detected - performed by PCR methodology.
[2025-04-09] MEDS: DECADRON 4 MG IV ×2 (09:50→20:29)
[2025-04-09] MEDS: ELIQUIS 2.5 MG PO ×2 (09:51→20:28)
--- NOTE | 2025-04-09 09:51 | W.PN.ID1 ---
Date of Service
Date of Service: April 09, 2025
Today's Communication
Continue antibiotics. See below�
Assessment / Plan
Bilateral pulmonary infiltrates; suspected PNA
Normal white count with left shift
Hypoxemia
Elevated procalcitonin
Stage NSCLCa (s/p chemo/XRT); currently on Keytruda
CHF
HTN
Orthostatic hypotension
Recommendations:
Sputum cultures rejected secondary to saliva.
Continue cefepime 1 gm IV q.6 hours while inpatient
At D/C, transition to cefdinir 300 mg p.o. BID for an additional 5 to 7 days.
Continue Acapella device and incentive spirometry.
����������������������������������������������������������
Chief Complaint
-: Pneumonia
Subjective / Review of Systems
Patient seen and examined. Reports feeling improved today. Still with sputum, although slightly less.
Vital Signs / Physical Exam
Vital Signs
Vital Signs
Temp Pulse Resp BP Pulse Ox
97.4 F 89 18 129/59 100
04/09/25 03:00 04/09/25 08:24 04/09/25 08:24 04/09/25 06:00 04/09/25 08:24
Physical Exam
Constitutional: Comfortable, Chronically Ill and Non-toxic
Cardiovascular: Irregular Rate and S1/S2; Negative S3/S4
Pulmonary: Rhonchi (Scattered throughout), Coarse and Non Labored
Gastrointestinal: Soft and Non Tender
Extremities: Negative Edema, Cyanosis or Erythema
Skin: Warm and Dry
Psychological: Calm
Objective Data
Lab Data
Lab Results
04/09/25 04:30
04/09/25 04:30
Estimated Creat Clear 78 ml/min 04/09/25 04:30
Lactic Acid Cancelled 04/05/25 12:45
Total Bilirubin 0.6 mg/dl (0.2-1.3) 04/06/25 05:31
AST 21 U/L (17-59) 04/06/25 05:31
ALT 17 U/L (0-50) 04/06/25 05:31
Alkaline Phosphatase 85 U/L (38-126) 04/06/25 05:31
Most recent labs reviewed.
Micro Results:
04/06/25 20:32 Blood Culture - Preliminary
Blood/Venous No Growth in 48 hours- Final report to follow
04/06/25 10:49 Blood Culture - Preliminary
Blood/Venous No Growth in 48 hours- Final report to follow
04/07/25 05:46 Respiratory Culture - Preliminary
Sputum Nohemi albicans
Gram Stain - Preliminary
04/06/25 17:17 Respiratory Culture - Final
Sputum Usual Respiratory Karma
Gram Stain - Final
04/05/25 09:46 Blood Culture - Preliminary
Blood/Venous No Growth in 72 hours- Final report to follow
04/05/25 08:48 Blood Culture - Final
Blood/Venous Coagulase neg. staphylococcus
Additional testing on request
Gram Stain - Final
04/05/25 20:20 Nasal Screen MRSA (PCR) - Final
Nose MRSA not detected - performed by PCR methodology.
04/05/25 08:48 Influenza Types A & B (MELYSSA) - Final
Nasal Swab Negative for Influenza A & B, NAAT
Negative results must be combined with clinical observations
and patient history.
Nucleic Acid Amplification test (NAAT)performed on the
[employer] platform.
Imaging:
04/05/2025 CT chest (PE study): no pulmonary embolism. No aortic dissection. No pneumothorax. No abnormal pleural or parenchymal masses. Moderate right pleural effusion noted. Moderate consolidation in the left lower lobe concerning for
pneumonia. There is also moderate right lower lobe consolidation. A spiculated band of tissue in the right upper lobe measures 4.1 x 2.2 cm and stable from prior imaging. A solid noncalcified spiculated nodule in the right middle lobe is noted.
Mediastinum is normal. No hilar or mediastinal lymphadenopathy.
Care Review
Plan reviewed with: Physician (Hospitalist)
[2025-04-09] MEDS: HYDROCORTISONE 1% LOTION 1 APPLIC TOPICAL (09:52)
[2025-04-09] MEDS: LASIX 20 MG PO (09:54)
[2025-04-09] MEDS: MUCINEX 1200 MG PO ×2 (09:55→20:28)
[2025-04-09] MEDS: METAMUCIL, KONSYL 1 PACKET PO (09:55)
[2025-04-09] MEDS: MAGNESIUM OXIDE 400 MG PO (09:55)
[2025-04-09] MEDS: PACERONE 200 MG PO ×2 (09:56→20:28)
[2025-04-09] MEDS: OSCAL CAL 500 1000 MG PO ×2 (09:56→20:28)
[2025-04-09] MEDS: PROTONIX 40 MG PO (09:59)
[2025-04-09] MEDS: SODIUM CHLORIDE 1 GRAM PO ×2 (10:01→20:28)
[2025-04-09] MEDS: VITAMIN D3 (cholecalciferol) 50 MCG PO ×2 (10:01→20:28)
[2025-04-09] MEDS: SIMBRINZA 1%-0.2% OPHTH SUSP 1 DROP RIGHT EYE ×2 (10:01→20:32)
[2025-04-09 11:53] LABS: Glucose - Point of Care 313 mg/dl (70-99)
[2025-04-09] MEDS: ROXICODONE 5 MG PO (12:05)
[2025-04-09] MEDS: TYLENOL 650 MG PO (12:07)
--- NOTE | 2025-04-09 12:21 | W.DCSUMMARY ---
Discharge Summary
Discharge Data
Date of Admission: 04/05/25
Date of Discharge: 04/10/25
Total time spent discharging patient (in min): 45
-
Pending Results: No
Hospital Course
Mr. Adolfo Higgins is a 79yoM with a PMH notable for stage IV lung carcinoma (Keytruda, s/p radiotherapy), paroxysmal A-fib (Eliquis), right shoulder arthritis (sp ORIF, on oxycodone, fentanyl, ibuprofen), orthostatic hypotension (midodrine), who
presents from [facility] with acute on chronic productive cough and hypoxia.
Pneumonia on CT. Started on vanc/zosyn. respiratory culture growing Coagulase-negative Staphylococcus. Switched to cefepime. Discharged on cefdinir 300 mg BID 7 days.
Wet productive cough not resolving on respiratory therapy with acapella, chest physiotherapy, mucinex. Pulmonology consulted. Started IV dexamethasone 4 mg for possible AECOPD. Discharged on prednisone taper, starting at 40 mg for 3 days.
Primary:
Pneumonia
Pleural effusions
Right shoulder pain
COPD
Malnutrition
Secondary
A-fib with RVR
HFpEF
Stage IV non-small cell lung cancer
Metastatic hypertension
#Pneumonia
- hypoxia, productive cough, fever x 1. Moderate bibasilar consolations concerning for pneumonia on CT. Multifactorial: Pneumonia, heart failure, immune related pneumonitis
� Blood cultures: 1 culture positive for Staphylococcus species. Other culture no growth to date. Repeat blood culture pending
� Cefepime 04/06/2025/. At discharge, transitioned to cefdinir 300 mg p.o. twice daily for 5 to 7 days.
- Vancomycin and Zosyn 04/05/2025. Per ID, switched to cefepime from Zosyn, and discontinued vancomycin due to negative MRSA on 04/06/25.
#Bilateral pleural effusions
Moderate right pleural effusion and small left pleural effusion on CT
� BiPAP weaned to 1.5 L NC
� Anticipated thoracentesis of moderate right pleural effusion not performed due to the pleural effusion being too small to outweigh the risks at this
Pulmonology consulted
� Dexamethasone IV 4 mg every 12 hours started 04/08/2025. At discharge, transitioned to prednisone p.o. 40 mg for 3 days, 30 mg for 3 days, 20 mg for 3 days, 10 mg for 3 days
� May consider right heart cath if SOB continues and etiology not identified
� Outpatient follow-up (Dr. Boateng) With PFTs and 6-minute walking test
� Optimize nutrition and dietary consult to help with shortness of breath
� Thoracentesis not indicated right now as effusion is small
� May repeat chest imaging if worsening SOB/hypoxemia.
#Productive cough
� Started Mucinex, Acapella, and chest physiotherapy. Will resume CPAP at night.
� Pulmonology consulted. Pending recommendations regarding thoracentesis.
#A-fib with RVR
Spontaneously converted back into sinus rhythm before amiodarone
� Furosemide 20 mg daily p.o.
� Amiodarone 20 mg twice daily for 4 weeks then 200 mg daily
� Eliquis 2.5 mg twice daily (decreased to 5 mg due to cachexia, 6 months from 80 years old, increased bleeding risk with amiodarone close
� Cardiology scheduled follow-up 04/29/2025
� Amiodarone 200 mg p.o. daily started 04/06/2025
� Beta radha discontinued previously due to soft blood pressures
#Chronic HFpEF
� Echo 02/23/25: Mildly dilated aortic root. LV EF 55 to 60%. Normal LV size and function. Normal regional wall motion
� Daily weights, I/O
� BNP 3670 positive
� Troponin I elevated at 0.035; history of elevated troponin I
Cardiology signed off
# NSCLC, stage IV
#Widespread osseous metastatic disease.
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 Bilateral pulmonary nodules, likely metastases
� Keytruda infusion every 3 weeks. Finished radiotherapy.
� Follows with Dr. Sandoval
� Xgeva every 6 weeks to prevent pathologic fractures
� Calcium carbonate 1000 mg p.o. twice daily, vitamin D 50 mcg p.o. twice daily
� Hematology�oncology consult: Continue outpatient lung cancer therapy
#Orthostatic hypotension
He took sodium chloride p.o. at home for hyponatremia and hypotension
� Midodrine 10 mg p.o. 3 times daily
#Right shoulder pain
S/p ORIF
� Oxycodone 5 mg p.o. every 6 as needed, fentanyl patch 25 mcg every 72 hours, gabapentin 300 mg p.o. nightly
� Holding ibuprofen due to risk of increased bleeding in combination with Eliquis
#Malnutrition
� Calcium 7.5, albumin 2.8, calcium corrected to albumin is 8.5 (04/06/2025)
#COPD: Continue home inhalers: Albuterol, fluticasone salmeterol
#Depression: Mirtazapine 15 mg p.o. nightly
#Hyperlipidemia: Continue home rosuvastatin 40 mg p.o. every afternoon
#Glaucoma: Latanoprost, Brinzolamide/brimonidine
Discharge Plan
-
Patient Disposition: [facility]
Discharge Diagnosis/Procedures: Primary:
Pneumonia
Pleural effusions
Right shoulder pain
COPD
Malnutrition
Secondary
A-fib with RVR
HFpEF
Stage IV non-small cell lung cancer
Metastatic hypertension
Condition: Fair
Diet: 2 Gram Sodium
Specialty Instructions: Weigh Daily- Call MD for wt gain/loss 3 lbs overnight/5 lbs in 1 week
Referrals:
Bhavya Puente MD [Active, Pulmonary Medicine]
Referral Note: 1-2 weeks, PFT w/ RECREATION OFFICER
Jorge Dempsey MD [Active, Cardiology] - 04/29/25 4:20 pm
Referral Note: You have an appointment to see Dr. Dempsey in the [place] office on 04/29/2025 at 4:20 PM. Please call [phone] if you need to reschedule
Moncho Jimenez MD [Family Provider, [facility]] - in less than 1 week
Additional Discharge Medication Instructions: - Decrease your dose of Eliquis to 2.5 mg twice daily. A new prescription has been sent.
- Start taking Lasix (furosemide) 20 mg once a day to help with fluid retention
- Start taking amiodarone 200 mg twice daily for 4 weeks (until 05/08/2025) and then reduce to 200 mg once daily thereafter. 2 separate prescriptions were sent to your pharmacy, one is for twice daily dosing with no refills and the other
prescription is for once daily dosing and has refills.
- For your steroid taper, take prednisone orally 40 mg for 3 days, then 30 mg for 3 days, then 20 mg for 3 days, and lastly 10 mg for 3 days.
- For pneumonia, please take cefdinir 300 mg twice a day for 7 days.
Prescriptions:
New
furosemide 20 mg Tablet
20 mg PO DAILY Qty: 30 11RF
Eliquis 5 mg Tablet
2.5 mg PO BID Qty: 60 11RF
amiodarone [Pacerone] 200 mg Tablet
200 mg PO BID Qty: 60 0RF
Rx Instructions:
BID for 1 month then once daily thereafter
amiodarone 200 mg tablet
200 mg PO DAILY Qty: 30 11RF
Rx Instructions:
BID for 1 month then once daily thereafter
prednisone 10 mg Tablet
See Rx Instructions .ROUTE .COMPLEX Qty: 30 0RF
Rx Instructions:
Take By Mouth:
40 mg daily x3 days, 30 mg daily x3 days,
20 mg daily x3 days, 10 mg daily x3 days.
cefdinir 300 mg capsule
300 mg PO BID Qty: 14 0RF
Rx Instructions:
Please take cefdinir 300 mg twice a day for 7 days
guaifenesin 600 mg Tablet Extended Release 12hr
1,200 mg PO Q12 Qty: 14 0RF
acetaminophen 325 mg Tablet
650 mg PO Q6H Qty: 30 0RF
Rx Instructions:
Please take Tylenol as needed for shoulder pain, but do not exceed 4000 mg/day. Please limit your Tylenol because of your LFTs increasing previously on Tylenol
Continued
Theratrum Complete 50 Plus/Lut Tablet
1 tab PO DAILY
Simbrinza 1-0.2 % Drops,Suspension
1 drp RIGHT EYE BID
bisacodyl [Dulcolax (bisacodyl)] 10 mg Suppository
10 mg HI DAILYPRN PRN (Reason: if no bm x 3 days)
sennosides-docusate sodium [Senokot-S] 8.6-50 mg Tablet
2 tab-cap PO BIDPRN PRN (Reason: constipation)
psyllium Packet
1 packet PO DAILY
gabapentin 300 mg capsule
300 mg PO HS
denosumab 120 mg/1.7 mL (70 mg/mL) Solution
120 mg SC Q4W Qty: 0
calcium carbonate 500 mg calcium (1,250 mg) Tablet
1,000 mg PO BID Qty: 0
Fleet Enema 19-7 gram/118 mL Enema
118 ml HI DAILYPRN PRN (Reason: IF NO BM X4 DAYS)
midodrine 5 mg Tablet
10 mg PO TID@0800,1300,1800 Qty: 90 0RF
latanoprost 0.005 % Drops
1 drp BOTH EYES HS
hydrocortisone 1 % Lotion
1 applic TOPICAL DAILY
sodium chloride 1 gram Tablet
1,000 mg PO BID
lidocaine 4 % Cream
1 applic TOPICAL Q4HPRN PRN (Reason: mild pain)
magnesium hydroxide [Milk of Magnesia] 400 mg/5 mL Suspension
2,400 mg PO HSPRN PRN (Reason: if no bm by 2nd day)
pantoprazole [Protonix] 40 mg Tablet,Delayed Release (Dr/Ec)
40 mg PO DAILY
mirtazapine [Remeron] 15 mg Tablet
15 mg PO HS
Santyl 250 unit/gram Ointment
1 applic TOPICAL DAILY
albuterol sulfate 90 mcg/actuation Hfa Aerosol Inhaler
2 puff INHALATION R Q6HPRN PRN (Reason: sob)
rosuvastatin [Crestor] 40 mg Tablet
40 mg PO QPM
cholecalciferol (vitamin D3) [Vitamin D3] 50 mcg (2,000 unit) Capsule
50 mcg PO BID
Keytruda 25 mg/mL Solution
200 mg IV Q21D
magnesium oxide 400 mg magnesium Tablet
400 mg PO DAILY
AirDuo Digihaler 113 mcg-14 mcg/actuation Aero Powdr Breath Act W/Sensor
1 inh INHALATION R BID
fentanyl 25 mcg/hr Patch 72 Hour
1 patch TRANSDERMAL Q72H Qty: 1 0RF
Patient Comments:
with 12 mcg=37mcg
oxycodone 5 mg tablet
5 mg PO Q6HPRN PRN (Reason: severe pain) Qty: 3 0RF
Rx Instructions:
NO MORE THAN 4 TAB IN 24 HR
fentanyl 12 mcg/hr Patch 72 Hour
1 patch TRANSDERMAL Q72H Qty: 1 0RF
Discontinued
Eliquis 5 mg Tablet
5 mg PO BID Qty: 60 5RF
ibuprofen [Advil] 200 mg Tablet
400 mg PO [id number] PRN (Reason: mild pain)
Discharge Orders:
Discharge Patient (As Directed); Ordered 04/10/25
Ordered By: Constance Mclean
Discharge Date and Time
Print Language: [id number]
--- NOTE | 2025-04-09 12:22 | RESPNOTE ---
Addendum entered by Mandy Ledezma, RT 04/09/25 13:44:
attempted O2 eval with PT/OT present, patient attempted to sit up on side of bed but c/o pain R shoulder and paused multiple times for pain. patient then stated he's in too much pain to continue and requested to get back in bed. on 1L O2, SPO2 93%
with activity unable to evaluated further.
Original Note:
attempt home O2 eval with PT. patient refused PT/ O2 eval , instead wanting 'quiet.' perviously requiring mod assistance x2 for weakness, line management and R shoulder pain, will wait for PT/OT availability to aid in O2 eval. patient tested at rest
on RA and desated to 87%, O2 re-applied at 1L O2, SpO2 improved to 94% on 1L within 2 minutes.
[2025-04-09] MEDS: NOVOLOG FLEXPEN-MODERATE RESISTANCE 7 UNITS SC (14:15)
--- NOTE | 2025-04-09 15:26 | PTCARENOTE ---
Patient medically stable for discharge today. Refused to work with PT/OT and respiratory for home o2 assessment due to his right shoulder pain. He was premedicated with pain medication prior to working with therapy.
--- NOTE | 2025-04-09 16:57 | CM ---
Following up on Patient. Medical Attending is ready to discharge the patient. Patient refused PT/OT earlier when SABINO Gavin went in to discussed whether it is Home vs. SNF.
Patient agreed to work with PT/OT to THEN decide what he wants for discharge. SABINO Gavin went back, he said he 'failed' in PT/OTso was not sure. After about 20 min talking to the patient/ about where he is now and where he wants to be, he/
agreed to SNF at [facility].
SABINO Gavin followed up & both facilities do not have beds. SABINO Gvain informed the patient/ who wanted to call he son Jaspreet. Son Jaspreet spent some time talking about the SNF overall and the 2 he wanted his dad to go to. Jaspreet did agree to
try [facility].
[facility] accepted and does have a bed tomorrow. Family is agreeable and Medical Team aware. Marvin said to send patient after 1pm.
PLAN: SNF to [facility].
[2025-04-09 17:25] LABS: Glucose - Point of Care 221 mg/dl (70-99)
[2025-04-09] MEDS: NOVOLOG FLEXPEN-MODERATE RESISTANCE 3 UNITS SC (18:26)
[2025-04-09] MEDS: FLUSH (NSS) 1 FLUSH IV (18:30)
[2025-04-09] MEDS: CRESTOR 40 MG PO (20:27)
[2025-04-09] MEDS: REMERON 15 MG PO (20:28)
[2025-04-09] MEDS: NEURONTIN 300 MG PO (20:28)
[2025-04-09] MEDS: XALATAN OPHTHALMIC SOLUTION 1 DROP BOTH EYES (20:31)
[2025-04-09] MEDS: MYCOSTATIN ORAL SUSPENSION 5 ML PO (20:38)
[2025-04-10] VITALS (8 sets, daily range): BP systolic 114–138; BP diastolic 56–88; BMI 19.4
[2025-04-10 03:44] LABS: Hematocrit 30.3 % (39.0-52.0); Hemoglobin 9.6 g/dL (13.0-18.0); Mean Corp Hgb Conc. 31.7 g/dL (33.0-37.0); Mean Corpuscular Volume 88.1 fL (80.0-94.0); Platelet Count 284 10^3/uL (130-400); Red Cell Dist. Width 18.0 % (11.5-14.5)
[2025-04-10 04:08] LABS: Blood Urea Nitrogen 24 mg/dl (9-20); Calcium 8.2 mg/dl (8.4-10.2); Carbon Dioxide 31 mmol/L (22-30); Chloride 99 mmol/L (98-107); Estimated Creatinine Clearance 79 ml/min; Glucose 215 mg/dl (70-99); Potassium 4.6 mmol/L (3.5-5.1); Sodium 134 mmol/L (135-145); eGFR > 60.00
[2025-04-10] MEDS: STERILE WATER FOR INJECTION 10 ML IV (05:09)
[2025-04-10] MEDS: MAXIPIME 1000 MG IV (05:09)
--- NOTE | 2025-04-10 05:36 | PTCARENOTE ---
NO acute events overnight. Patient self removed bipap and placed back on 2 liters. Patient hesitant with repositioning due to shoulder pain. Will continue to monitor.
--- NOTE | 2025-04-10 05:53 | PTCARENOTE ---
Approached by patients son in the evening and he stated that he does not want his father to go to [facility]. Patient is due to be transferred there today. Son stated that he went to tour the facility and he does not like the nurse patient
ratio of 1:20 and there's an active covid outbreak. Will pass along to dayshift.
[2025-04-10] MEDS: DUONEB 3 ML INH (07:43)
[2025-04-10] MEDS: ADVAIR HFA 115/21 MCG INHALER 2 PUFF INH (07:43)
[2025-04-10] MEDS: SODIUM CHLORIDE 3% FOR INHALATION 1 VIAL INH (07:45)
--- NOTE | 2025-04-10 07:57 | PTCARENOTE ---
Pt AAOx3 forgetfulat times. Lungs are coarse, 2L O2 in place. Duragesic patches on l,upper irving. Pt in sr at this time . #[address]
--- NOTE | 2025-04-10 08:45 | W.PN.UPDATE ---
Update Note
Progress Note Update
I saw and evaluated the patient. I reviewed the resident�s note and agree with findings and plan as documented in the resident�s note.
No new complaints.
Gen: remains NAD, Awake and alert, appears chronically ill and malnourished/cachectic
Eyes: EOMI, PERRLA, no scleral icterus.
Neck: supple.
CV: irreg/irreg, +S1/S2, no m/r/g.
Resp: continues to remain CTAB anteriorly
Abd: +BS, soft, NT, ND
Skin: No rashes.
Neuro: CN 2-12 intact, non-focal.
Psych: Normal mood and affect.
04/06/25 20:32 Blood/Venous Blood Culture - Preliminary
No Growth in 72 hours- Final report to follow
04/07/25 05:46 Sputum Respiratory Culture - Final
Nohemi albicans
04/07/25 05:46 Sputum Gram Stain - Final
04/06/25 10:49 Blood/Venous Blood Culture - Preliminary
No Growth in 72 hours- Final report to follow
04/05/25 09:46 Blood/Venous Blood Culture - Preliminary
No Growth in 4 days- Final report to follow
04/06/25 17:17 Sputum Respiratory Culture - Final
Usual Respiratory Karma
04/06/25 17:17 Sputum Gram Stain - Final
04/05/25 08:48 Blood/Venous Blood Culture - Final
Coagulase neg. staphylococcus
Additional testing on request
04/05/25 08:48 Blood/Venous Gram Stain - Final
04/05/25 20:20 Nose Nasal Screen MRSA (PCR) - Final
MRSA not detected - performed by PCR methodology.
04/05/25 08:48 Nasal Swab Influenza Types A & B (MELYSSA) - Final
Negative for Influenza A & B, NAAT
Negative results must be combined with clinical observations
and patient history.
Nucleic Acid Amplification test (NAAT)performed on the
[employer] platform.
CTA chest: No PE. Moderate R pleural effusion. Small L pleural effusion. New. Moderate bibasilar consolidation concerning for pneumonia. Left greater than right. New. Stable band of scar tissue versus treated neoplasm in the right upper lobe. Stable
known mild osseous metastasis. Too small to characterize hypodense hepatic lesions likely small cysts or hemangiomas. Stable right-sided pulmonary nodules. Mild emphysematous disease.
Severe sepsis and acute hypoxemic respiratory failure due to B/L PNA and (now) acute COPD Exac:
-Patient received 1 L normal saline in the ER. I would not give this patient the full 30cc/kg bolus due to history of congestive heart failure, stable blood pressure, pleural effusions concerning for acute CHF.
-Procalcitonin is noted but should not have been ordered in a patient with malignancy, it is not interpretable
-on RA at baseline, was on 4L NC O2 on admission (note was on 6L NC O2 at [facility] 1 day [employer]), now weaned to 2L NC O2
-severe sepsis a/e/b tachypnea, fever (temp 100.3 F constitutes a fever in an immunocompromised patient), tachycardia, source PNA
-B/L pleural effusions are concerning for acute on chronic heart failure with preserved ejection fraction. In the setting of severe sepsis due to pneumonia, no further IV fluids were given after the ER.
-cardiology saw in c/s
-was diuresed with IV Lasix, now transitioned to PO Lasix, daily wts, I/Os
-COVID/Flu NEG
-has been on Cefepime, transition to Cefdinir on d/c as per ID
-despite imaging with mod R pleural effusion there is not enough fluid to tap as per IR
-pulm following
-IV Decadron started for acute COPD Exac. Note, pt with moderate obstruction on recent PFTs. d/c on prednisone taper.
-cont Striverdi/Spiriva
PAF with RVR:
-RVR due to severe sepsis
-in the recent past pt's BB was stopped due to syncope, bradycardia, orthostatic hypotension
-cont Eliquis/amio
Acute on chronic HFpEF:
-was on Lasix in the past which was stopped due to orthostatic hypotension
-Pt with acute on chronic HFpEF as above
-was diuresed with IV Lasix, now transitioned to PO Lasix
-daily wts, I/Os
Other problems:
Moderate protein calorie malnutrition
Stage 2 coccyx pressure injury, POA
Orthostatic hypotension: cont Midodrine, place abd binder/TEDs PRN
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 Sandoval outpt
Chronic Pain with chronic opioid use with dependence: due to bone metastasis/cancer related pain, cont fentanyl patch/oxycodone/gabapentin, cont bowel regimen
COPD without Acute Exacerbation: moderate obstruction on recent PFTs, cont Striverdi/Spiriva
TASIA: BIPAP HS
Chronic right shoulder pain: due to severe OA and rotator cuff tear. Note, pt had been on NSAIDs in the setting of being on Eliquis due to severe pain refractory to narcotics, Neurontin, etc after extensive discussions with pain management and
cardiology.
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
DNR/I
Remains medically clear for discharge. Case management aware.
Total time spent on d/c = 33 min. This included today's physical exam, progress note, review of laboratory and diagnostic data, preparation of discharge documents and prescriptions, and discussions about the pt's hospital course and discharge plan
with the patient and other medical staff services coordinator involved in the patient's care.
[2025-04-10] MEDS: MYCOSTATIN ORAL SUSPENSION 5 ML PO ×2 (09:10→13:32)
[2025-04-10] MEDS: VITAMIN D3 (cholecalciferol) 50 MCG PO (09:10)
[2025-04-10] MEDS: OSCAL CAL 500 1000 MG PO (09:10)
[2025-04-10] MEDS: MUCINEX 1200 MG PO (09:11)
[2025-04-10] MEDS: MAGNESIUM OXIDE 400 MG PO (09:11)
[2025-04-10] MEDS: SANTYL OINTMENT 1 APPLIC TOPICAL (09:11)
[2025-04-10] MEDS: ELIQUIS 2.5 MG PO (09:12)
[2025-04-10] MEDS: DECADRON 4 MG IV (09:12)
[2025-04-10] MEDS: PROTONIX 40 MG PO (09:12)
[2025-04-10] MEDS: PACERONE 200 MG PO (09:13)
[2025-04-10] MEDS: SODIUM CHLORIDE 1 GRAM PO (09:13)
[2025-04-10] MEDS: LASIX 20 MG PO (09:13)
[2025-04-10] MEDS: HYDROCORTISONE 1% LOTION 1 APPLIC TOPICAL (09:14)
[2025-04-10] MEDS: METAMUCIL, KONSYL 1 PACKET PO (09:15)
[2025-04-10] MEDS: SIMBRINZA 1%-0.2% OPHTH SUSP 1 DROP RIGHT EYE (09:22)
[2025-04-10] MEDS: NOVOLOG FLEXPEN-MODERATE RESISTANCE 1 UNITS SC (09:29)
[2025-04-10 09:31] LABS: Glucose - Point of Care 173 mg/dl (70-99)
--- NOTE | 2025-04-10 09:42 | W.PN.HOSP.TC ---
Today's Communication/Plan
-
On home O2 assessment, the patient desatted at rest. Informed the case worker and requested they help set up home O2.
Assessment / Plan
Assessment / Plan
IMPRESSION:
Mr. Adolfo Higgins is a 79yoM with a PMH notable for stage IV lung carcinoma (Keytruda, s/p radiotherapy), paroxysmal A-fib (Eliquis), right shoulder arthritis (sp ORIF, on oxycodone, fentanyl, ibuprofen), orthostatic hypotension (midodrine), who
presents from [facility] with acute on chronic productive cough and hypoxia.
PLAN:
#Sepsis�pneumonia
- hypoxia, productive cough, fever x 1. Moderate bibasilar consolations concerning for pneumonia on CT. Multifactorial: Pneumonia, heart failure, immune related pneumonitis
� Blood cultures: 1 culture positive for Staphylococcus species. Other culture no growth to date. Repeat blood culture pending
� Cefepime 04/06/2025/. At discharge, transitioned to cefdinir 300 mg p.o. twice daily for 5 to 7 days.
- Vancomycin and Zosyn 04/05/2025. Per ID, switched to cefepime from Zosyn, and discontinued vancomycin due to negative MRSA on 04/06/25.
#Bilateral pleural effusions
Moderate right pleural effusion and small left pleural effusion on CT
� BiPAP weaned to 1.5 L NC
� Anticipated thoracentesis of moderate right pleural effusion not performed due to the pleural effusion being too small to outweigh the risks at this
Pulmonology consulted
� Dexamethasone IV 4 mg every 12 hours started 04/08/2025. At discharge, transitioned to prednisone p.o. 40 mg for 3 days, 30 mg for 3 days, 20 mg for 3 days, 10 mg for 3 days
� May consider right heart cath if SOB continues and etiology not identified
� Outpatient follow-up (Dr. Boateng) With PFTs and 6-minute walking test
� Optimize nutrition and dietary consult to help with shortness of breath
� Thoracentesis not indicated right now as effusion is small
� May repeat chest imaging if worsening SOB/hypoxemia.
#Productive cough
� Started Mucinex, Acapella, and chest physiotherapy. Will resume CPAP at night.
#A-fib with RVR
Spontaneously converted back into sinus rhythm before amiodarone
� Furosemide 20 mg daily p.o.
� Amiodarone 20 mg twice daily for 4 weeks then 200 mg daily
� Eliquis 2.5 mg twice daily (decreased to 5 mg due to cachexia, 6 months from 80 years old, increased bleeding risk with amiodarone close
� Cardiology scheduled follow-up 04/29/2025
� Amiodarone 200 mg p.o. daily started 04/06/2025
� Beta radha discontinued previously due to soft blood pressures
#Chronic HFpEF
� Echo 02/23/25: Mildly dilated aortic root. LV EF 55 to 60%. Normal LV size and function. Normal regional wall motion
� Daily weights, I/O
� BNP 3670 positive
� Troponin I elevated at 0.035; history of elevated troponin I
Cardiology signed off
# NSCLC, stage IV
#Widespread osseous metastatic disease.
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 Bilateral pulmonary nodules, likely metastases
� Keytruda infusion every 3 weeks. Finished radiotherapy.
� Follows with Dr. Sandoval
� Xgeva every 6 weeks to prevent pathologic fractures
� Calcium carbonate 1000 mg p.o. twice daily, vitamin D 50 mcg p.o. twice daily
� Hematology�oncology consult: Continue outpatient lung cancer therapy
#Orthostatic hypotension
He took sodium chloride p.o. at home for hyponatremia and hypotension
� Midodrine 10 mg p.o. 3 times daily
#Right shoulder pain
S/p ORIF
� Oxycodone 5 mg p.o. every 6 as needed, fentanyl patch 25 mcg every 72 hours, gabapentin 300 mg p.o. nightly
� Holding ibuprofen due to risk of increased bleeding in combination with Eliquis
#Malnutrition
� Calcium 7.5, albumin 2.8, calcium corrected to albumin is 8.5 (04/06/2025)
#COPD: Continue home inhalers: Albuterol, fluticasone salmeterol
#Depression: Mirtazapine 15 mg p.o. nightly
#Hyperlipidemia: Continue home rosuvastatin 40 mg p.o. every afternoon
#Glaucoma: Latanoprost, Brinzolamide/brimonidine
CODE STATUS: DNR and DNI
DVT prophylaxis: Eliquis 2.5 mg p.o. twice daily
Diet: Regular
Dispo: SNF
Anticipated Discharge: Today
Subjective/Interval History
-
Date of Service: April 10, 2025
No acute events overnight. Patient states that his breathing and coughing may be improved or similar to yesterday. He does not have other complaints. He is interested in discharge to SNF. Satting at 93% on room air (nasal cannula fell out).
Objective Data
-
Labs:
Laboratory Results
04/10/25
03:26
WBC 7.9
Hgb 9.6 L
Hct 30.3 L
Plt Count 284
Sodium 134 L
Potassium 4.6
Chloride 99
Carbon Dioxide 31 H
BUN 24 H
Creatinine 0.5 L
Glucose 215 H
Calcium 8.2 L
Vital Signs:
Vital Signs
Temp Pulse Resp BP Pulse Ox
98.1 F 78 14 114/56 96
04/10/25 07:26 04/10/25 09:13 04/10/25 08:00 04/10/25 09:13 04/10/25 08:00
I&O
04/09/25 04/10/25 04/11/25
06:59 06:59 06:59
Intake Total 1015 / 1015 960 / 960
Output Total 1810 / 1810 1130 / 1130
Balance -795 / -795 -170 / -170
Review of Systems
-
History Source: Patient
All other systems: Reviewed and negative
Respiratory: Reports Cough
--- NOTE | 2025-04-10 10:30 | W.PN.ID1 ---
Date of Service
Date of Service: April 10, 2025
Today's Communication
Continue antibiotics. Transition to cefdinir.
Assessment / Plan
Bilateral pulmonary infiltrates; suspected PNA
Hypoxemia
Elevated procalcitonin
Stage NSCLCa (s/p chemo/XRT); currently on Keytruda
CHF
HTN
Orthostatic hypotension
Recommendations:
Prior sputum cultures rejected secondary to saliva.
Transition to cefdinir 300 mg p.o. BID for an additional 6 days.
Continue Acapella device and incentive spirometry.
����������������������������������������������������������
Chief Complaint
-: Pneumonia
Subjective / Review of Systems
Review of Systems: No Fever, No Chills, Cough, Sputum Production and No Chest Pain
Vital Signs / Physical Exam
Vital Signs
Vital Signs
Temp Pulse Resp BP Pulse Ox
98.1 F 78 14 114/56 95
04/10/25 07:26 04/10/25 09:13 04/10/25 08:00 04/10/25 09:13 04/10/25 08:00
Physical Exam
Constitutional: Comfortable, Chronically Ill and Non-toxic
Cardiovascular: Irregular Rate
Pulmonary: Rhonchi (Scattered throughout), Coarse and Non Labored
Gastrointestinal: Soft, Non Tender and Non Distended
Extremities: Negative Edema, Cyanosis or Erythema
Skin: Warm and Dry
Psychological: Calm
Objective Data
Lab Data
Lab Results
04/10/25 03:26
04/10/25 03:26
Estimated Creat Clear 79 ml/min 04/10/25 03:26
Lactic Acid Cancelled 04/05/25 12:45
Total Bilirubin 0.6 mg/dl (0.2-1.3) 04/06/25 05:31
AST 21 U/L (17-59) 04/06/25 05:31
ALT 17 U/L (0-50) 04/06/25 05:31
Alkaline Phosphatase 85 U/L (38-126) 04/06/25 05:31
Most recent labs reviewed.
Micro Results:
04/05/25 09:46 Blood Culture - Final
Blood/Venous No Growth - Final Report
04/06/25 20:32 Blood Culture - Preliminary
Blood/Venous No Growth in 72 hours- Final report to follow
04/07/25 05:46 Respiratory Culture - Final
Sputum Nohemi albicans
Gram Stain - Final
04/06/25 10:49 Blood Culture - Preliminary
Blood/Venous No Growth in 72 hours- Final report to follow
04/06/25 17:17 Respiratory Culture - Final
Sputum Usual Respiratory Karma
Gram Stain - Final
04/05/25 08:48 Blood Culture - Final
Blood/Venous Coagulase neg. staphylococcus
Additional testing on request
Gram Stain - Final
04/05/25 20:20 Nasal Screen MRSA (PCR) - Final
Nose MRSA not detected - performed by PCR methodology.
04/05/25 08:48 Influenza Types A & B (MELYSSA) - Final
Nasal Swab Negative for Influenza A & B, NAAT
Negative results must be combined with clinical observations
and patient history.
Nucleic Acid Amplification test (NAAT)performed on the
[employer] platform.
Imaging:
04/05/2025 CT chest (PE study): no pulmonary embolism. No aortic dissection. No pneumothorax. No abnormal pleural or parenchymal masses. Moderate right pleural effusion noted. Moderate consolidation in the left lower lobe concerning for
pneumonia. There is also moderate right lower lobe consolidation. A spiculated band of tissue in the right upper lobe measures 4.1 x 2.2 cm and stable from prior imaging. A solid noncalcified spiculated nodule in the right middle lobe is noted.
Mediastinum is normal. No hilar or mediastinal lymphadenopathy.
[2025-04-10 12:13] LABS: Glucose - Point of Care 187 mg/dl (70-99)
[2025-04-10] MEDS: NOVOLOG FLEXPEN-HIGH RESISTANCE 2 UNITS SC (12:35)
--- NOTE | 2025-04-10 12:37 | W.DCSUMMARY ---
Discharge Summary
Discharge Data
Date of Admission: 04/05/25
Date of Discharge: 04/10/25
-
Pending Results: No
Hospital Course
Mr. Adolfo Higgins is a 79yoM with a PMH notable for stage IV lung carcinoma (Keytruda, s/p radiotherapy), paroxysmal A-fib (Eliquis), right shoulder arthritis (sp ORIF, on oxycodone, fentanyl, ibuprofen), orthostatic hypotension (midodrine), who
presents from [facility] with acute on chronic productive cough and hypoxia.
Pneumonia on CT. Started on vanc/zosyn. respiratory culture growing Coagulase-negative Staphylococcus. Switched to cefepime. Discharged on cefdinir 300 mg BID 7 days.
Wet productive cough not resolving on respiratory therapy with acapella, chest physiotherapy, mucinex. Pulmonology consulted. Started IV dexamethasone 4 mg for possible AECOPD. Discharged on prednisone taper, starting at 40 mg for 3 days.
Primary:
Pneumonia
Pleural effusions
Right shoulder pain
COPD
Malnutrition
Secondary
A-fib with RVR
HFpEF
Stage IV non-small cell lung cancer
Metastatic hypertension
#Sepsis�pneumonia
- hypoxia, productive cough, fever x 1. Moderate bibasilar consolations concerning for pneumonia on CT. Multifactorial: Pneumonia, heart failure, immune related pneumonitis
� Blood cultures: 1 culture positive for Staphylococcus species. Other culture no growth to date. Repeat blood culture pending
� Cefepime 04/06/2025At discharge, transitioned to cefdinir 300 mg p.o. twice daily for 5 to 7 days.
- Vancomycin and Zosyn 04/05/2025. Per ID, switched to cefepime from Zosyn, and discontinued vancomycin due to negative MRSA on 04/06/25.
#Bilateral pleural effusions
Moderate right pleural effusion and small left pleural effusion on CT
� BiPAP weaned to 1.5 L NC
� Anticipated thoracentesis of moderate right pleural effusion not performed due to the pleural effusion being too small to outweigh the risks at this 50
Pulmonology consulted
� Dexamethasone IV 4 mg every 12 hours started 04/08/2025. At discharge, transitioned to prednisone p.o. 40 mg for 3 days, 30 mg for 3 days, 20 mg for 3 days, 10 mg for 3 days
� May consider right heart cath if SOB continues and etiology not identified
� Outpatient follow-up (Dr. Boateng) With PFTs and 6-minute walking test
� Optimize nutrition and dietary consult to help with shortness of breath
� Thoracentesis not indicated right now as effusion is small
� May repeat chest imaging if worsening SOB/hypoxemia.
#Productive cough
� Started Mucinex, Acapella, and chest physiotherapy. Will resume CPAP at night.
� Pulmonology consulted. Pending recommendations regarding thoracentesis.
#A-fib with RVR
Spontaneously converted back into sinus rhythm before amiodarone
� Furosemide 20 mg daily p.o.
� Amiodarone 20 mg twice daily for 4 weeks then 200 mg daily
� Eliquis 2.5 mg twice daily (decreased to 5 mg due to cachexia, 6 months from 80 years old, increased bleeding risk with amiodarone close
� Cardiology scheduled follow-up 04/29/2025
� Amiodarone 200 mg p.o. daily started 04/06/2025
� Beta radha discontinued previously due to soft blood pressures
#Chronic HFpEF
� Echo 02/23/25: Mildly dilated aortic root. LV EF 55 to 60%. Normal LV size and function. Normal regional wall motion
� Daily weights, I/O
� BNP 3670 positive
� Troponin I elevated at 0.035; history of elevated troponin I
Cardiology signed off
# NSCLC, stage IV
#Widespread osseous metastatic disease.
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 Bilateral pulmonary nodules, likely metastases
� Keytruda infusion every 3 weeks. Finished radiotherapy.
� Follows with Dr. Sandoval
� Xgeva every 6 weeks to prevent pathologic fractures
� Calcium carbonate 1000 mg p.o. twice daily, vitamin D 50 mcg p.o. twice daily
� Hematology�oncology consult: Continue outpatient lung cancer therapy
#Orthostatic hypotension
He took sodium chloride p.o. at home for hyponatremia and hypotension
� Midodrine 10 mg p.o. 3 times daily
#Right shoulder pain
S/p ORIF
� Oxycodone 5 mg p.o. every 6 as needed, fentanyl patch 25 mcg every 72 hours, gabapentin 300 mg p.o. nightly
� Holding ibuprofen due to risk of increased bleeding in combination with Eliquis
#Malnutrition
� Calcium 7.5, albumin 2.8, calcium corrected to albumin is 8.5 (04/06/2025)
#COPD: Continue home inhalers: Albuterol, fluticasone salmeterol
#Depression: Mirtazapine 15 mg p.o. nightly
#Hyperlipidemia: Continue home rosuvastatin 40 mg p.o. every afternoon
#Glaucoma: Latanoprost, Brinzolamide/brimonidine
Discharge Plan
-
Patient Disposition: [facility]/SNF
Discharge Diagnosis/Procedures: Primary:
Pneumonia
Pleural effusions
Right shoulder pain
COPD
Malnutrition
Secondary
A-fib with RVR
HFpEF
Stage IV non-small cell lung cancer
Metastatic hypertension
Condition: Fair
Diet: 2 Gram Sodium
Specialty Instructions: Weigh Daily- Call MD for wt gain/loss 3 lbs overnight/5 lbs in 1 week
Referrals:
Bhavya Puente MD [Active, Pulmonary Medicine]
Referral Note: 1-2 weeks, PFT w/ CAREERS COUNSELLOR
Jorge Dempsey MD [Active, Cardiology] - 04/29/25 4:20 pm
Referral Note: You have an appointment to see Dr. Dempsey in the [place] office on 04/29/2025 at 4:20 PM. Please call [phone] if you need to reschedule
Moncho Jimenez MD [Family Provider, [facility]] - in less than 1 week
Additional Discharge Medication Instructions: - Decrease your dose of Eliquis to 2.5 mg twice daily. A new prescription has been sent.
- Start taking Lasix (furosemide) 20 mg once a day to help with fluid retention
- Start taking amiodarone 200 mg twice daily for 4 weeks (until 05/08/2025) and then reduce to 200 mg once daily thereafter. 2 separate prescriptions were sent to your pharmacy, one is for twice daily dosing with no refills and the other
prescription is for once daily dosing and has refills.
- For your steroid taper, take prednisone orally 40 mg for 3 days, then 30 mg for 3 days, then 20 mg for 3 days, and lastly 10 mg for 3 days.
- For pneumonia, please take cefdinir 300 mg twice a day for 7 days.
Prescriptions:
New
furosemide 20 mg Tablet
20 mg PO DAILY Qty: 30 11RF
Eliquis 5 mg Tablet
2.5 mg PO BID Qty: 60 11RF
amiodarone [Pacerone] 200 mg Tablet
200 mg PO BID Qty: 60 0RF
Rx Instructions:
BID for 1 month then once daily thereafter
amiodarone 200 mg tablet
200 mg PO DAILY Qty: 30 11RF
Rx Instructions:
BID for 1 month then once daily thereafter
prednisone 10 mg Tablet
See Rx Instructions .ROUTE .COMPLEX Qty: 30 0RF
Rx Instructions:
Take By Mouth:
40 mg daily x3 days, 30 mg daily x3 days,
20 mg daily x3 days, 10 mg daily x3 days.
cefdinir 300 mg capsule
300 mg PO BID Qty: 14 0RF
Rx Instructions:
Please take cefdinir 300 mg twice a day for 7 days
guaifenesin 600 mg Tablet Extended Release 12hr
1,200 mg PO Q12 Qty: 14 0RF
acetaminophen 325 mg Tablet
650 mg PO Q6H Qty: 30 0RF
Rx Instructions:
Please take Tylenol as needed for shoulder pain, but do not exceed 4000 mg/day. Please limit your Tylenol because of your LFTs increasing previously on Tylenol
Continued
Theratrum Complete 50 Plus/Lut Tablet
1 tab PO DAILY
Simbrinza 1-0.2 % Drops,Suspension
1 drp RIGHT EYE BID
bisacodyl [Dulcolax (bisacodyl)] 10 mg Suppository
10 mg KS DAILYPRN PRN (Reason: if no bm x 3 days)
sennosides-docusate sodium [Senokot-S] 8.6-50 mg Tablet
2 tab-cap PO BIDPRN PRN (Reason: constipation)
psyllium Packet
1 packet PO DAILY
gabapentin 300 mg capsule
300 mg PO HS
denosumab 120 mg/1.7 mL (70 mg/mL) Solution
120 mg SC Q4W Qty: 0
calcium carbonate 500 mg calcium (1,250 mg) Tablet
1,000 mg PO BID Qty: 0
Fleet Enema 19-7 gram/118 mL Enema
118 ml KS DAILYPRN PRN (Reason: IF NO BM X4 DAYS)
midodrine 5 mg Tablet
10 mg PO TID@0800,1300,1800 Qty: 90 0RF
latanoprost 0.005 % Drops
1 drp BOTH EYES HS
hydrocortisone 1 % Lotion
1 applic TOPICAL DAILY
sodium chloride 1 gram Tablet
1,000 mg PO BID
lidocaine 4 % Cream
1 applic TOPICAL Q4HPRN PRN (Reason: mild pain)
magnesium hydroxide [Milk of Magnesia] 400 mg/5 mL Suspension
2,400 mg PO HSPRN PRN (Reason: if no bm by 2nd day)
pantoprazole [Protonix] 40 mg Tablet,Delayed Release (Dr/Ec)
40 mg PO DAILY
mirtazapine [Remeron] 15 mg Tablet
15 mg PO HS
Santyl 250 unit/gram Ointment
1 applic TOPICAL DAILY
albuterol sulfate 90 mcg/actuation Hfa Aerosol Inhaler
2 puff INHALATION R Q6HPRN PRN (Reason: sob)
rosuvastatin [Crestor] 40 mg Tablet
40 mg PO QPM
cholecalciferol (vitamin D3) [Vitamin D3] 50 mcg (2,000 unit) Capsule
50 mcg PO BID
Keytruda 25 mg/mL Solution
200 mg IV Q21D
magnesium oxide 400 mg magnesium Tablet
400 mg PO DAILY
AirDuo Digihaler 113 mcg-14 mcg/actuation Aero Powdr Breath Act W/Sensor
1 inh INHALATION R BID
fentanyl 25 mcg/hr Patch 72 Hour
1 patch TRANSDERMAL Q72H Qty: 1 0RF
Patient Comments:
with 12 mcg=37mcg
oxycodone 5 mg tablet
5 mg PO Q6HPRN PRN (Reason: severe pain) Qty: 3 0RF
Rx Instructions:
NO MORE THAN 4 TAB IN 24 HR
fentanyl 12 mcg/hr Patch 72 Hour
1 patch TRANSDERMAL Q72H Qty: 1 0RF
Discontinued
Eliquis 5 mg Tablet
5 mg PO BID Qty: 60 5RF
ibuprofen [Advil] 200 mg Tablet
400 mg PO [id number] PRN (Reason: mild pain)
Discharge Date and Time
Print Language: MAURITANIAN
[2025-04-10] MEDS: NOVOLOG FLEXPEN-MODERATE RESISTANCE SC (12:58)
--- NOTE | 2025-04-10 13:11 | PTCARENOTE ---
Report to [facility] on . Pt eating lunch then will be transported
[2025-04-10] MEDS: ROXICODONE 5 MG PO (13:30)
--- NOTE | 2025-04-10 13:46 | W.DCSUMMARY ---
Discharge Summary
Discharge Data
Date of Admission: 04/05/25
Date of Discharge: 04/10/25
Total time spent discharging patient (in min): 55
-
Pending Results: No
Hospital Course
Mr. Adolfo Higgins is a 79yoM with a PMH notable for stage IV lung carcinoma (Keytruda, s/p radiotherapy), paroxysmal A-fib (Eliquis), right shoulder arthritis (sp ORIF, on oxycodone, fentanyl, ibuprofen), orthostatic hypotension (midodrine), who
presents from [facility] with acute on chronic productive cough and hypoxia.
Pneumonia on CT. Started on vanc/zosyn. respiratory culture growing Coagulase-negative Staphylococcus. Switched to cefepime. Discharged on cefdinir 300 mg BID 7 days.
Wet productive cough not resolving on respiratory therapy with acapella, chest physiotherapy, mucinex. Pulmonology consulted. Started IV dexamethasone 4 mg for possible AECOPD. Discharged on prednisone taper, starting at 40 mg for 3 days.
Primary:
Pneumonia
Pleural effusions
Right shoulder pain
COPD
Malnutrition
Secondary
A-fib with RVR
HFpEF
Stage IV non-small cell lung cancer
Metastatic hypertension
#Pneumonia
- hypoxia, productive cough, fever x 1. Moderate bibasilar consolations concerning for pneumonia on CT. Multifactorial: Pneumonia, heart failure, immune related pneumonitis
� Blood cultures: 1 culture positive for Staphylococcus species. Other culture no growth to date. Repeat blood culture pending
� Cefepime 04/06/2025/. At discharge, transitioned to cefdinir 300 mg p.o. twice daily for 5 to 7 days.
- Vancomycin and Zosyn 04/05/2025. Per ID, switched to cefepime from Zosyn, and discontinued vancomycin due to negative MRSA on 04/06/25.
#Bilateral pleural effusions
Moderate right pleural effusion and small left pleural effusion on CT
� BiPAP weaned to 1.5 L NC
� Anticipated thoracentesis of moderate right pleural effusion not performed due to the pleural effusion being too small to outweigh the risks at this
Pulmonology consulted
� Dexamethasone IV 4 mg every 12 hours started 04/08/2025. At discharge, transitioned to prednisone p.o. 40 mg for 3 days, 30 mg for 3 days, 20 mg for 3 days, 10 mg for 3 days
� May consider right heart cath if SOB continues and etiology not identified
� Outpatient follow-up (Dr. Boateng) With PFTs and 6-minute walking test
� Optimize nutrition and dietary consult to help with shortness of breath
� Thoracentesis not indicated right now as effusion is small
� May repeat chest imaging if worsening SOB/hypoxemia.
#Productive cough
� Started Mucinex, Acapella, and chest physiotherapy. Will resume CPAP at night.
� Pulmonology consulted. Pending recommendations regarding thoracentesis.
#A-fib with RVR
Spontaneously converted back into sinus rhythm before amiodarone
� Furosemide 20 mg daily p.o.
� Amiodarone 20 mg twice daily for 4 weeks then 200 mg daily
� Eliquis 2.5 mg twice daily (decreased to 5 mg due to cachexia, 6 months from 80 years old, increased bleeding risk with amiodarone close
� Cardiology scheduled follow-up 04/29/2025
� Amiodarone 200 mg p.o. daily started 04/06/2025
� Beta radha discontinued previously due to soft blood pressures
#Chronic HFpEF
� Echo 02/23/25: Mildly dilated aortic root. LV EF 55 to 60%. Normal LV size and function. Normal regional wall motion
� Daily weights, I/O
� BNP 3670 positive
� Troponin I elevated at 0.035; history of elevated troponin I
Cardiology signed off
# NSCLC, stage IV
#Widespread osseous metastatic disease.
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 Bilateral pulmonary nodules, likely metastases
� Keytruda infusion every 3 weeks. Finished radiotherapy.
� Follows with Dr. Sandoval
� Xgeva every 6 weeks to prevent pathologic fractures
� Calcium carbonate 1000 mg p.o. twice daily, vitamin D 50 mcg p.o. twice daily
� Hematology�oncology consult: Continue outpatient lung cancer therapy
#Orthostatic hypotension
He took sodium chloride p.o. at home for hyponatremia and hypotension
� Midodrine 10 mg p.o. 3 times daily
#Right shoulder pain
S/p ORIF
� Oxycodone 5 mg p.o. every 6 as needed, fentanyl patch 25 mcg every 72 hours, gabapentin 300 mg p.o. nightly
� Holding ibuprofen due to risk of increased bleeding in combination with Eliquis
#Malnutrition
� Calcium 7.5, albumin 2.8, calcium corrected to albumin is 8.5 (04/06/2025)
#COPD: Continue home inhalers: Albuterol, fluticasone salmeterol
#Depression: Mirtazapine 15 mg p.o. nightly
#Hyperlipidemia: Continue home rosuvastatin 40 mg p.o. every afternoon
#Glaucoma: Latanoprost, Brinzolamide/brimonidine
Discharge Plan
-
Patient Disposition: Longterm/SNF
Discharge Diagnosis/Procedures: Primary:
Pneumonia
Pleural effusions
Right shoulder pain
COPD
Malnutrition
Secondary
A-fib with RVR
HFpEF
Stage IV non-small cell lung cancer
Metastatic hypertension
Condition: Fair
Diet: 2 Gram Sodium
Specialty Instructions: Weigh Daily- Call MD for wt gain/loss 3 lbs overnight/5 lbs in 1 week
Referrals:
Bhavya Puente MD [Active, Pulmonary Medicine]
Referral Note: 1-2 weeks, PFT w/ ELECTRICAL AND ELECTRONIC ASSEMBLER
Jorge Dempsey MD [Active, Cardiology] - 04/29/25 4:20 pm
Referral Note: You have an appointment to see Dr. Dempsey in the [place] office on 04/29/2025 at 4:20 PM. Please call [phone] if you need to reschedule
Moncho Jimenez MD [Family Provider, [facility]] - in less than 1 week
Additional Discharge Medication Instructions: - Decrease your dose of Eliquis to 2.5 mg twice daily. A new prescription has been sent.
- Start taking Lasix (furosemide) 20 mg once a day to help with fluid retention
- Start taking amiodarone 200 mg twice daily for 4 weeks (until 05/08/2025) and then reduce to 200 mg once daily thereafter. 2 separate prescriptions were sent to your pharmacy, one is for twice daily dosing with no refills and the other
prescription is for once daily dosing and has refills.
- For your steroid taper, take prednisone orally 40 mg for 3 days, then 30 mg for 3 days, then 20 mg for 3 days, and lastly 10 mg for 3 days.
- For pneumonia, please take cefdinir 300 mg twice a day for 7 days.
Prescriptions:
New
furosemide 20 mg Tablet
20 mg PO DAILY Qty: 30 11RF
Eliquis 5 mg Tablet
2.5 mg PO BID Qty: 60 11RF
amiodarone [Pacerone] 200 mg Tablet
200 mg PO BID Qty: 60 0RF
Rx Instructions:
BID for 1 month then once daily thereafter
amiodarone 200 mg tablet
200 mg PO DAILY Qty: 30 11RF
Rx Instructions:
BID for 1 month then once daily thereafter
prednisone 10 mg Tablet
See Rx Instructions .ROUTE .COMPLEX Qty: 30 0RF
Rx Instructions:
Take By Mouth:
40 mg daily x3 days, 30 mg daily x3 days,
20 mg daily x3 days, 10 mg daily x3 days.
cefdinir 300 mg capsule
300 mg PO BID Qty: 14 0RF
Rx Instructions:
Please take cefdinir 300 mg twice a day for 7 days
guaifenesin 600 mg Tablet Extended Release 12hr
1,200 mg PO Q12 Qty: 14 0RF
acetaminophen 325 mg Tablet
650 mg PO Q6H Qty: 30 0RF
Rx Instructions:
Please take Tylenol as needed for shoulder pain, but do not exceed 4000 mg/day. Please limit your Tylenol because of your LFTs increasing previously on Tylenol
Continued
Theratrum Complete 50 Plus/Lut Tablet
1 tab PO DAILY
Simbrinza 1-0.2 % Drops,Suspension
1 drp RIGHT EYE BID
bisacodyl [Dulcolax (bisacodyl)] 10 mg Suppository
10 mg [place] DAILYPRN PRN (Reason: if no bm x 3 days)
sennosides-docusate sodium [Senokot-S] 8.6-50 mg Tablet
2 tab-cap PO BIDPRN PRN (Reason: constipation)
psyllium Packet
1 packet PO DAILY
gabapentin 300 mg capsule
300 mg PO HS
denosumab 120 mg/1.7 mL (70 mg/mL) Solution
120 mg SC Q4W Qty: 0
calcium carbonate 500 mg calcium (1,250 mg) Tablet
1,000 mg PO BID Qty: 0
Fleet Enema 19-7 gram/118 mL Enema
118 ml [place] DAILYPRN PRN (Reason: IF NO BM X4 DAYS)
midodrine 5 mg Tablet
10 mg PO TID@0800,1300,1800 Qty: 90 0RF
latanoprost 0.005 % Drops
1 drp BOTH EYES HS
hydrocortisone 1 % Lotion
1 applic TOPICAL DAILY
sodium chloride 1 gram Tablet
1,000 mg PO BID
lidocaine 4 % Cream
1 applic TOPICAL Q4HPRN PRN (Reason: mild pain)
magnesium hydroxide [Milk of Magnesia] 400 mg/5 mL Suspension
2,400 mg PO HSPRN PRN (Reason: if no bm by 2nd day)
pantoprazole [Protonix] 40 mg Tablet,Delayed Release (Dr/Ec)
40 mg PO DAILY
mirtazapine [Remeron] 15 mg Tablet
15 mg PO HS
Santyl 250 unit/gram Ointment
1 applic TOPICAL DAILY
albuterol sulfate 90 mcg/actuation Hfa Aerosol Inhaler
2 puff INHALATION R Q6HPRN PRN (Reason: sob)
rosuvastatin [Crestor] 40 mg Tablet
40 mg PO QPM
cholecalciferol (vitamin D3) [Vitamin D3] 50 mcg (2,000 unit) Capsule
50 mcg PO BID
Keytruda 25 mg/mL Solution
200 mg IV Q21D
magnesium oxide 400 mg magnesium Tablet
400 mg PO DAILY
AirDuo Digihaler 113 mcg-14 mcg/actuation Aero Powdr Breath Act W/Sensor
1 inh INHALATION R BID
fentanyl 25 mcg/hr Patch 72 Hour
1 patch TRANSDERMAL Q72H Qty: 1 0RF
Patient Comments:
with 12 mcg=37mcg
oxycodone 5 mg tablet
5 mg PO Q6HPRN PRN (Reason: severe pain) Qty: 3 0RF
Rx Instructions:
NO MORE THAN 4 TAB IN 24 HR
fentanyl 12 mcg/hr Patch 72 Hour
1 patch TRANSDERMAL Q72H Qty: 1 0RF
Discontinued
Eliquis 5 mg Tablet
5 mg PO BID Qty: 60 5RF
ibuprofen [Advil] 200 mg Tablet
400 mg PO [id number] PRN (Reason: mild pain)
Discharge Orders:
Discharge Patient (As Directed); Ordered 04/10/25
Ordered By: Constance Mclean
Discharge Date and Time
Print Language: LITHUANIAN
--- NOTE | 2025-04-10 13:54 | PTCARENOTE ---
Pt for dc will keep in [id number] until then
--- NOTE | 2025-04-10 15:17 | PTCARENOTE ---
Spoke with resident e rewriting med list as some meds are said to be sent to [facility] pharmacy, resident states it was corrected but can not re do med list. Attempted to give report to [facility] enriquez just redirected to admission office answering
machine.Attempts to call report resulted in being tx from unit to unit.
--- NOTE | 2025-04-10 15:34 | PTCARENOTE ---
A nurse did take report and will pass it on as she did not know what bed he was going to.
--- NOTE | 2025-04-10 15:56 | CM ---
Following up on Patient.
SABINO Gavin was told by RN that the son refused [facility] due to COVID outbreak. SABINO Gavin did speak to the son via phone this morning so was given other options.
All options were looked into, the only one on their list is [facility] that will accept him and they agreed. SABINO Gavin informed [facility] about the outpatient chemo that is charged via the doctor's office, and according to the son, should not be
a responsiblity of the facility. Also, the told the facility that he is not on Xgeva (supportive cancer med) either and patient will bring his own CPAP.
Report: #[id number]
Fax: #[phone]
Transport arranged for 16:30 and all is aware. Family is aware to give this facility at least a week if they do not like it then ensure he gets home PT and home oxygen arranged.
PLAN: SNF to [facility]
[2025-04-10] MEDS: TYLENOL 650 MG PO (16:36)
--- NOTE | 2025-04-10 17:46 | PTCARENOTE ---
Pt left via EMS to [facility]
== END 2025-04-10 17:00 | DRG 871 ==
LOC: IMU 14:10
PROVIDERS: Emergency Medicine; Internal Medicine Cardiovascular Disease; Physician Assistant; ADMITTING PHYSICIAN Internal Medicine; CONSULT PHYSICIAN Internal Medicine; CONSULT PHYSICIAN Internal Medicine Cardiovascular Disease; CONSULT PHYSICIAN Internal Medicine Infectious Disease; EMERGENCY PHYSICIAN Emergency Medicine; FAMILY PHYSICIAN Family Medicine; OTHER PHYSICIAN Internal Medicine Hematology & Oncology
PROC: 5A09357 Assistance with Respiratory Ventilation, Less than 24 Consecutive Hours, Continuous Positive Airway Pressure (ICD-10-PCS; 2025-04-07)
DX: A41.9 Sepsis, unspecified organism (principal); I50.33 Acute on chronic diastolic (congestive) heart failure; J18.9 Pneumonia, unspecified organism; J96.01 Acute respiratory failure with hypoxia; I50.32 Chronic diastolic (congestive) heart failure; C34.90 Malignant neoplasm of unspecified part of unspecified bronchus or lung; C79.51 Secondary malignant neoplasm of bone; R64 Cachexia; D84.9 Immunodeficiency, unspecified; I87.1 Compression of vein; F11.20 Opioid dependence, uncomplicated; C78.6 Secondary malignant neoplasm of retroperitoneum and peritoneum; Z68.1 Body mass index [BMI] 19.9 or less, adult; I45.2 Bifascicular block; E44.0 Moderate protein-calorie malnutrition; I11.0 Hypertensive heart disease with heart failure; F17.200 Nicotine dependence, unspecified, uncomplicated; R65.20 Severe sepsis without septic shock; F32.A Depression, unspecified; E78.5 Hyperlipidemia, unspecified; H40.9 Unspecified glaucoma; J43.9 Emphysema, unspecified; I48.0 Paroxysmal atrial fibrillation; I95.1 Orthostatic hypotension; G47.33 Obstructive sleep apnea (adult) (pediatric); E04.2 Nontoxic multinodular goiter; I35.8 Other nonrheumatic aortic valve disorders; B95.7 Other staphylococcus as the cause of diseases classified elsewhere; N40.0 Benign prostatic hyperplasia without lower urinary tract symptoms; I71.20 Thoracic aortic aneurysm, without rupture, unspecified; I25.10 Atherosclerotic heart disease of native coronary artery without angina pectoris; L89.152 Pressure ulcer of sacral region, stage 2; M19.011 Primary osteoarthritis, right shoulder; J98.4 Other disorders of lung; G89.29 Other chronic pain; Z66 Do not resuscitate; Z92.3 Personal history of irradiation; Z90.49 Acquired absence of other specified parts of digestive tract; Z88.8 Allergy status to other drugs, medicaments and biological substances; Z79.01 Long term (current) use of anticoagulants; Z11.52 Encounter for screening for COVID-19; Z75.1 Person awaiting admission to adequate facility elsewhere; Z79.899 Other long term (current) drug therapy; Z92.21 Personal history of antineoplastic chemotherapy; Z79.890 Hormone replacement therapy; R13.10 Dysphagia, unspecified
CPT/HCPCS: 71045; 71275; 76604; 80048; 80053; 82040; 82962; 83605; 83615; 83880; 84145; 84484; 85014; 85025; 85027; 87040; 87070; 87147; 87154; 87205; 87502; 87641; 87811; 93005; 94640; 94660; 94668; 96365; 96367; 96375; 97116; 97163; 97167; 97530; 99285; Q9967

== ENCOUNTER 2025-04-13 10:55 | Emergency (ER) | payer MEDICARE, OTHER, SELFPAY ==
[2025-04-13] VITALS (9 sets, daily range): BP systolic 97–134; BP diastolic 50–63; BMI 18.0
[2025-04-13 11:11] LABS: Hematocrit 37.8 % (39.0-52.0); Hemoglobin 11.8 g/dL (13.0-18.0); Mean Corp Hgb Conc. 31.2 g/dL (33.0-37.0); Mean Corpuscular Volume 87.1 fL (80.0-94.0); Nucleated Red Blood Cells % 0 % (-); Platelet Count 340 10^3/uL (130-400); Red Cell Dist. Width 18.8 % (11.5-14.5)
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
[2025-04-13 11:30] LABS: COVID-19 Antigen Negative (Negative)
--- NOTE | 2025-04-13 11:30 | EDRN ---
this RN noticed that the pt has two Fentanyl patches on left posterior shoulder
[2025-04-13 11:42] LABS: Troponin I 0.020 ng/ml
[2025-04-13 11:45] LABS: ALT (SGPT) 32 U/L (0-50); AST (SGOT) 24 U/L (17-59); Albumin 3.3 g/dl (3.5-5.0); Alkaline Phosphatase 89 U/L (38-126); Blood Urea Nitrogen 29 mg/dl (9-20); Calcium 9.0 mg/dl (8.4-10.2); Carbon Dioxide 32 mmol/L (22-30); Chloride 97 mmol/L (98-107); Estimated Creatinine Clearance 74 ml/min; Glucose 162 mg/dl (70-99); Magnesium 2.3 mg/dl (1.6-2.3); Potassium 4.3 mmol/L (3.5-5.1); Sodium 135 mmol/L (135-145); Total Protein 6.2 g/dl (6.3-8.2); eGFR > 60.00
--- NOTE | 2025-04-13 12:08 | ED.GENMED ---
History of Present Illness
<Johny Chen Jr., PA-C - Last Filed: 04/14/25 09:07>
General
Chief Complaint: Heart Rate Problem
Source: patient
Exam Limitations: none
Time Seen by Provider: 04/13/25 12:06
Nursing documentation reviewed up to this point in time: agreed with
History of Present Illness
History of Present Illness:
79-year-old male past with history of A-fib currently on Eliquis history of hypertension COPD metastatic lung cancer currently on Keytruda presenting to the emergency department today with concerns of worsening physical state including generalized
weakness fatigue worsening shortness of breath of the past 3 days or so was discharged here after being diagnosed with pneumonia was treated with IV antibiotics and transition to oral antibiotics after being discharged here 3 days ago the family's
concern that he is not been doing well he has not been eating and may be losing weight over the past 3 days has had increasing weakness and fatigue. They are concerned of his decline at the nursing facility that he was sent to. He denies specific
chest pain or worsening shortness of breath.
Past History
<LEELA Bourgeois Jr. Last Filed: 04/14/25 09:07>
Past History
ED Past Medical History: HTN and Other (Diverticulitis)
ED Past Surgical History: Appendectomy, Orthopedic (Wrist surgery) and Tonsilectomy
Social History
Tobacco: Smoker
Alcohol: Occasional
Drug: None
Personal:
Living: with family
Employment: Employed
Review of Systems
<LEELA Bourgeois Jr. Last Filed: 04/14/25 09:07>
Review of Systems
Allergies reviewed?: Yes
Other source history: family
All Other Systems: ROS reviewed and negative except as documented in HPI and ROS
Phy Exam
<Johny Chen Jr., PA-C - Last Filed: 04/14/25 09:07>
Physical Exam
Physical Exam:
GENERAL: Alert , in no apparent distress
EYE: pupils equal and reactive
NECK: Supple, no significant adenopathy.
ENT: o/p clr, mmm.
CARDIAC: Regular rate and rhythm .
LUNGS: Clear breath sounds bilaterally, no acute respiratory distress, no wheezes/rales/rhonchi
ABDOMEN: Soft, without focal tenderness, no r/g, no cvat
NEUROLOGICAL: Alert and oriented, no focal neuro deficits
SKIN: Warm and dry, skin intact.
MUSCULOSKELETAL: No edema, well perfused.
PSYCH: Normal and appropriate interaction.
Course
<Johny Chen Jr., LEELA - Last Filed: 04/14/25 09:07>
Orders/Labs/Results
Orders:
Orders
04/13/25 10:58
EKG [Electrocardiogram (*1)] Urgent
Reason for Study: Palpitations
EKG- Treatment ONCE
CR Chest - 2 Views Urgent
Comment:
Reason For Exam: shortness of breath
04/13/25 11:01
COVID-19 Antigen Urgent
Source: Nasal Swab
Complete Blood Count/With Diff Urgent
Comprehensive Metabolic Panel Urgent
Magnesium Urgent
NT-proBNP Urgent
Troponin I Urgent
Influenza A+B Rapid Molecular Urgent
MAHESH Source: Nasal Swab
Specimen Description:
04/13/25 12:56
Case Management Consult ONCE
Case Management Consult: Discharge Planning
Abnormal Lab Results
04/13/25
11:01
WBC 14.6 H 10^3/uL
(4.8-10.8)
RBC 4.34 L 10^6/uL
(4.70-6.10)
Hgb 11.8 L D g/dL
(13.0-18.0)
Hct 37.8 L %
(39.0-52.0)
MCHC 31.2 L g/dL
(33.0-37.0)
RDW 18.8 H %
(11.5-14.5)
Abs Immat Gran (auto) 0.1 H 10^3/uL
(0-0.05)
Absolute Neuts (auto) 13.5 H 10^3/uL
(1.4-6.5)
Absolute Lymphs (auto) 0.3 L 10^3/uL
(1.2-3.4)
Immature Gran % 0.8 H %
(0-0.5)
Neutrophils % 92.7 H %
(42.2-75.2)
Lymphocytes % 2.2 L %
(20.5-51.1)
Chloride 97 L mmol/L
(98-107)
Carbon Dioxide 32 H mmol/L
(22-30)
BUN 29 H mg/dl
(9-20)
Creatinine 0.6 L mg/dL
(0.7-1.3)
Glucose 162 H mg/dl
(70-99)
Total Protein 6.2 L g/dl
(6.3-8.2)
Albumin 3.3 L g/dl
(3.5-5.0)
04/13/25 11:01
04/13/25 11:01
Vital Signs
Initial and Last Documented VS:
Initial Vital Signs
Temp Pulse Resp BP Pulse Ox
98.7 F 77 15 134/63 95
04/13/25 10:56 04/13/25 10:56 04/13/25 10:56 04/13/25 10:56 04/13/25 10:56
Last Documented Vital Signs
Temp Pulse Resp BP Pulse Ox
98.7 F 76 20 102/55 99
04/13/25 10:56 04/13/25 17:45 04/13/25 15:00 04/13/25 17:00 04/13/25 17:45
<Cherri Quarles MD - Last Filed: 04/13/25 13:42>
Orders/Labs/Results
Orders:
Orders
04/13/25 10:58
EKG [Electrocardiogram (*1)] Urgent
Reason for Study: Palpitations
EKG- Treatment ONCE
CR Chest - 2 Views Urgent
Comment:
Reason For Exam: shortness of breath
04/13/25 11:01
COVID-19 Antigen Urgent
Source: Nasal Swab
Complete Blood Count/With Diff Urgent
Comprehensive Metabolic Panel Urgent
Magnesium Urgent
NT-proBNP Urgent
Troponin I Urgent
Influenza A+B Rapid Molecular Urgent
MAHESH Source: Nasal Swab
Specimen Description:
04/13/25 12:56
Case Management Consult ONCE
Case Management Consult: Discharge Planning
Abnormal Lab Results
04/13/25
11:01
WBC 14.6 H 10^3/uL
(4.8-10.8)
RBC 4.34 L 10^6/uL
(4.70-6.10)
Hgb 11.8 L D g/dL
(13.0-18.0)
Hct 37.8 L %
(39.0-52.0)
MCHC 31.2 L g/dL
(33.0-37.0)
RDW 18.8 H %
(11.5-14.5)
Abs Immat Gran (auto) 0.1 H 10^3/uL
(0-0.05)
Absolute Neuts (auto) 13.5 H 10^3/uL
(1.4-6.5)
Absolute Lymphs (auto) 0.3 L 10^3/uL
(1.2-3.4)
Immature Gran % 0.8 H %
(0-0.5)
Neutrophils % 92.7 H %
(42.2-75.2)
Lymphocytes % 2.2 L %
(20.5-51.1)
Chloride 97 L mmol/L
(98-107)
Carbon Dioxide 32 H mmol/L
(22-30)
BUN 29 H mg/dl
(9-20)
Creatinine 0.6 L mg/dL
(0.7-1.3)
Glucose 162 H mg/dl
(70-99)
Total Protein 6.2 L g/dl
(6.3-8.2)
Albumin 3.3 L g/dl
(3.5-5.0)
04/13/25 11:01
04/13/25 11:01
Vital Signs
Initial and Last Documented VS:
Initial Vital Signs
Temp Pulse Resp BP Pulse Ox
98.7 F 77 15 134/63 95
04/13/25 10:56 04/13/25 10:56 04/13/25 10:56 04/13/25 10:56 04/13/25 10:56
Last Documented Vital Signs
Temp Pulse Resp BP Pulse Ox
98.7 F 76 20 102/55 99
04/13/25 10:56 04/13/25 17:45 04/13/25 15:00 04/13/25 17:00 04/13/25 17:45
<Johny Chen Jr., PA-C - Last Filed: 04/14/25 09:07>
MDM/Problems Addressed
MDM/Problems Addressed:
79-year-old male presenting to the emergency department with concerns of worsening general symptoms of fatigue weakness at nursing facility over the past 3 days. Was recently discharge from the hospital here after being treated for pneumonia with
IV antibiotics and transitioning to oral antibiotics. Additionally had a right-sided pleural effusion was additionally started on dexamethasone then transition to prednisone at discharge as well for pleural effusion. Here vital signs are normal
other than a slight white count but is on steroids other labs unremarkable chest x-ray that showed right mid lower lung opacity that likely represents chronic scarring less likely to represent acute pneumonia. Otherwise here in no distress vital
signs remained stable elevated white count likely related to his current steroid dosing. Patient was able to get placed into a suitable nursing facility. Return precautions were given.
<Johny Chen Jr., PA-C - Last Filed: 04/14/25 09:07>
*Pulse Oximetry
SaO2: 95
Nasal Cannula flow liters per minute: 4
Patient hypoxic: no (99)
*Critical Care Note
Total Time (30-74mins, 75-104mins- exclusive of procedures): Not Applicable
ED Attending Note
<Johny Chen Jr., PA-C - Last Filed: 04/14/25 09:07>
-
Portions of this chart may have been created with voice recognition software.� Occasional wrong word or��sound alike� substitutions may have occurred due to the inherent limitations of voice recognition software.
<Cherri Quarles MD - Last Filed: 04/13/25 13:42>
ED Attending Note
Patient seen and examined by attending physician: Yes
I performed the substantive portion of visit, reviewed & personally made and approve the management plan that is documented in note by myself or KAYLAN.: Yes
ED Attending Note:
79-year-old male with a history of metastatic lung CA presents to the emergency department status post recent discharge with pneumonia with a reported generalized weakness and possibly worsening of shortness of breath. There was suggestion of
transient bradycardia at the facility as well. Overall family is very unhappy with the care at the facility and request placement at a different location. Case management is bedside trying to make arrangements for this. Overall patient appears at
his baseline. He is currently eating [employer] food, pulse ox 91% with nasal cannula in place, speaks in full sentences, pleasant, no acute distress. Considered stable for transfer to care facility.
Discharge Plan
Departure
Patient Disposition: [facility]/SNF
Date of Disposition: 04/13/25
Time of Disposition: 17:56
Discharge Problem:
Weakness, Cancer, metastatic to bone, Dementia
Instructions: Weakness - ED (DC)
Prescriptions:
No Action
bisacodyl [Dulcolax (bisacodyl)] 10 mg Suppository
10 mg TX DAILYPRN PRN (Reason: if no bm x 3 days)
sennosides-docusate sodium [Senokot-S] 8.6-50 mg Tablet
2 tab-cap PO BIDPRN PRN (Reason: constipation)
psyllium Packet
1 packet PO DAILY
gabapentin 300 mg capsule
300 mg PO HS
calcium carbonate 500 mg calcium (1,250 mg) Tablet
1,000 mg PO BID Qty: 0
Fleet Enema 19-7 gram/118 mL Enema
118 ml TX DAILYPRN PRN (Reason: IF NO BM X4 DAYS)
midodrine 5 mg Tablet
10 mg PO TID@0800,1300,1800 Qty: 90 0RF
latanoprost 0.005 % Drops
1 drp BOTH EYES HS
hydrocortisone 1 % Lotion
1 applic TOPICAL DAILY
sodium chloride 1 gram Tablet
1,000 mg PO BID
lidocaine 4 % Cream
1 applic TOPICAL Q4HPRN PRN (Reason: mild pain)
magnesium hydroxide [Milk of Magnesia] 400 mg/5 mL Suspension
2,400 mg PO HSPRN PRN (Reason: if no bm by 2nd day)
pantoprazole [Protonix] 40 mg Tablet,Delayed Release (Dr/Ec)
40 mg PO DAILY
mirtazapine [Remeron] 15 mg Tablet
15 mg PO HS
Santyl 250 unit/gram Ointment
1 applic TOPICAL DAILY
albuterol sulfate 90 mcg/actuation Hfa Aerosol Inhaler
2 puff INHALATION R Q6HPRN PRN (Reason: sob)
cholecalciferol (vitamin D3) [Vitamin D3] 50 mcg (2,000 unit) Capsule
50 mcg PO BID
Keytruda 25 mg/mL Solution
200 mg IV Q21D
magnesium oxide 400 mg magnesium Tablet
400 mg PO DAILY
AirDuo Digihaler 113 mcg-14 mcg/actuation Aero Powdr Breath Act W/Sensor
1 inh INHALATION R BID
furosemide 20 mg Tablet
20 mg PO DAILY Qty: 30 11RF
Eliquis 5 mg Tablet
2.5 mg PO BID Qty: 60 11RF
amiodarone [Pacerone] 200 mg Tablet
200 mg PO BID Qty: 60 0RF
Rx Instructions:
BID for 1 month then once daily thereafter
amiodarone 200 mg tablet
200 mg PO DAILY Qty: 30 11RF
Rx Instructions:
BID for 1 month then once daily thereafter
prednisone 10 mg Tablet
See Rx Instructions .ROUTE .COMPLEX Qty: 30 0RF
Rx Instructions:
Take By Mouth:
40 mg daily x3 days, 30 mg daily x3 days,
20 mg daily x3 days, 10 mg daily x3 days.
cefdinir 300 mg capsule
300 mg PO BID Qty: 14 0RF
Rx Instructions:
Please take cefdinir 300 mg twice a day for 7 days
guaifenesin 600 mg Tablet Extended Release 12hr
1,200 mg PO Q12 Qty: 14 0RF
acetaminophen 325 mg Tablet
650 mg PO Q6H Qty: 30 0RF
Rx Instructions:
Please take Tylenol as needed for shoulder pain, but do not exceed 4000 mg/day. Please limit your Tylenol because of your LFTs increasing previously on Tylenol
fentanyl 25 mcg/hr Patch 72 Hour
1 patch TRANSDERMAL Q72H Qty: 1 0RF
Patient Comments:
with 12 mcg=37mcg
oxycodone 5 mg tablet
5 mg PO Q6HPRN PRN (Reason: severe pain) Qty: 3 0RF
Rx Instructions:
NO MORE THAN 4 TAB IN 24 HR
fentanyl 12 mcg/hr Patch 72 Hour
1 patch TRANSDERMAL Q72H Qty: 1 0RF
atorvastatin 80 mg Tablet
80 mg PO HS
Referrals:
Efrem Perales MD [Family Provider]
Activity Restrictions/Additional Instructions:
You were medically screened today. You are accepted at [facility]. Return for any concerns
Interventions
Interventions:
*Risk Screen - Suicide Last Done: 04/13/25 10:56
*General Assessment Last Done: 04/13/25 10:56
*Neglect/Abuse Screening Last Done: 04/13/25 10:56
*ED- Fall Risk Assessment Last Done: 04/13/25 10:56
*ED COVID-19 Vaccine History Last Done: 04/13/25 10:56
*Nursing Disposition Last Done: 04/13/25 17:49
ED- Cardiac Assessment Last Done: 04/13/25 10:56
ED- Pulmonary Assessment Last Done: 04/13/25 10:56
Discharge Date and Time
Discharge Date/Time: 04/13/25 18:03
Print Language: [place]
--- NOTE | 2025-04-13 13:52 | CM ---
Addendum entered by Nicole Preston 04/13/25 15:38:
10 referrals sent on behalf of pt
Only accepting facility at this time is [facility]
Most declined due to bed availability
Pt has 71 rehab days left, in co-pay days of approx $210/daily, pt with [employer] secondary
Encouraged son to call secondary if concerns about co-pay costs
Bedside meeting with pt and son/Jaspreet
They are in agreement with [facility]- update to SNF admissions
Medical necessity completed and ends breakage clerk to arrange for BLS transport
Update to nursing
Discharge Disposition- [facility] via BLS transport
Phone- [phone] 4th floor Fax- [phone]
Original Note:
ED CM consult for dc planning
Pt typically resides with spouse in a 1SH with 2STE
Pt utilizes a WW/SPC/Rollator for ambulation
Pt has a shower seat, commode and cpap as well
Pt has been weak and requiring assistance with ADLs
PCP- Jimenez Fitzpatrick
Rx- Mariusz-ON
Pt admitted to from 04/05-04/10 and discharged to [facility]
Pt and family not pleased with care at facility and requesting alternative rehab arrangements be made
Prior to [facility], pt was admitted to from 03/02-03/[address] [facility]
Preference is [facility]- per admissions, no current open beds and no anticipated beds for the upcoming week
Pt and spouse in agreement with wide-net of referrals in [facility] with 5 star Medicare ratings
PASRR completed and referrals sent via [facility]-pending
Pt under the care of Dr. Sandoval/Jocelyn and receives Keytruda Q3 weeks at [facility]
04/15 tx cancelled per spouse and anticipation for next tx in approx. 3 weeks
Pt has [facility] qualifying stay from 04/05-04/10 inpt admission
Discharge Disposition- SNF for [facility]
--- NOTE | 2025-04-13 15:05 | EDRN ---
case management currently at the pts bedside
--- NOTE | 2025-04-13 16:26 | EDRN ---
this RN spoke to case management and per casey saw operator the pt will be going to [facility] on [facility]th [facility], this RN attempte dto call [facility] at [phone] to give verbal report to the receiving nurse before the pt is picked up at 1800 and
there was no answer
--- NOTE | 2025-04-13 16:33 | EDRN ---
this RN called [facility] again at [phone] and this RN was able to give verbal report to the receiving nurse Chayito
--- NOTE | 2025-04-13 16:44 | EDRN ---
face sheet, discharge papers, history and list of medications faxed over to the receiving nurse Chayito gerard [place] Kishor
== END 2025-04-13 18:03 ==
LOC: EMR 10:55
PROVIDERS: EMERGENCY PHYSICIAN Emergency Medicine; FAMILY PHYSICIAN Family Medicine
DX: R53.1 Weakness (principal); C34.90 Malignant neoplasm of unspecified part of unspecified bronchus or lung; C79.51 Secondary malignant neoplasm of bone; F03.90 Unspecified dementia, unspecified severity, without behavioral disturbance, psychotic disturbance, mood disturbance, and anxiety; J44.9 Chronic obstructive pulmonary disease, unspecified; I10 Essential (primary) hypertension; I48.91 Unspecified atrial fibrillation; F17.200 Nicotine dependence, unspecified, uncomplicated; Z79.01 Long term (current) use of anticoagulants; Z90.49 Acquired absence of other specified parts of digestive tract; Z79.620 Long term (current) use of immunosuppressive biologic; Z11.52 Encounter for screening for COVID-19
CPT/HCPCS: 99285; 71046; 80053; 83735; 83880; 84484; 85025; 87502; 87811; 93005

== ENCOUNTER 2025-04-15 11:13 | Inpatient (IN) | payer MEDICARE, OTHER, SELFPAY ==
[2025-04-14 16:23] VITALS: BP 106/62; BMI 18.3
[2025-04-14 16:29] VITALS: BP 106/62
--- NOTE | 2025-04-14 16:36 | ED.GENMED ---
History of Present Illness
<Malou Foy CULINARY INSTRUCTOR - Last Filed: 04/14/25 22:17>
General
Chief Complaint: Swallowing Problem
Source: patient, ambulance crew and penitent[facility]
Exam Limitations: none
Time Seen by Provider: 04/14/25 16:24
Nursing documentation reviewed up to this point in time: agreed with
History of Present Illness
History of Present Illness:
79 yo male with hx lung CA with mets to bone, chronic significant R shoulder pain, on Fentanyl patch 37 mcg and Oxycodone 5 mg, presents for 'the social sciences chair sent me here they think I have problem swallowing.
I spoke with nurse Stratton at [facility] who states:
Pt is new admit to [facility] last night. He has cough but has lung CA and was DC'd from here days 3 ago for PNA, is on antibiotics, here again yesterday for fatigue, family think he was not well cared for at [facility] so brought him back here, he
was DC'd to [facility]. As new admission to [facility], Speech therapist eval and sent here for 'swallow study and esophagram' for dysphagia.
Pt and family state he's had this moist cough due to lung Ca and recent PNA. Pt and family state he ate a large meal last night with no problem. Pt states he has no problem swallowing and is hungry.
I called [facility] and informed these are out pt studies, the told me they cannot take him back. Pt nd family very nice, frustrated. Have to get Case Management involved Pt has been on Palliative Care per family.
Past History
<Malou Foy CULINARY INSTRUCTOR - Last Filed: 04/14/25 22:17>
Past History
ED Past Medical History: HTN and Other (Diverticulitis)
ED Past Surgical History: Appendectomy, Orthopedic (Wrist surgery) and Tonsilectomy
Social History
Tobacco: Smoker
Alcohol: Occasional
Drug: None
Personal:
Living: with family
Employment: Employed
Phy Exam
<Malou Foy, CULINARY INSTRUCTOR - Last Filed: 04/14/25 22:17>
Physical Exam
Physical Exam:
GENERAL: No acute distress. A&Ox3. Frail appearing
CONSTITUTIONAL: Afebrile.
EYES: clear, conjunctivae normal
ENMT: moist mucus membranes, Pharynx nl. Pt drinking water well.
RESPIRATORY: Regular respirations, nonlabored, lungs clear. Intermittent moist cough . Pulse ox 96% on 4L NC O2
CARDIOVASCULAR: Regular rate and rhythm, no murmurs, no rubs.
GI: Soft, nontender, normal BS
MUSCULOSKELETAL: Moves with ease. Movement causes right shoulder pain, this is chronic. Well perfused.
SKIN: Warm, dry, pink
PSYCH: Normal mood and affect. Well kept, interactive and appropriate
NEUROLOGIC: Awake, alert and oriented. No focal neurological deficits
Course
<Malou Foy, CULINARY INSTRUCTOR - Last Filed: 04/14/25 22:17>
Orders/Labs/Results
Orders:
Orders
04/14/25 16:38
Oxycodone [Roxicodone] 5 mg PO NOW STA
04/14/25 16:52
Basic Metabolic Panel Urgent
Complete Blood Count/With Diff Urgent
04/14/25 18:54
Admit/Transfer Patient As Directed
Co-Sign Provider:
Level of Care: Observation services
Assign to:: Medical/Surgical
Physician / Group: Bertha Bach
Diagnosis: dysphagia
PRN Pain Medication Management As Directed
May give lesser potent ordered pain med per pt: Yes
preference::
Protocol:: Medication orders for pain may be administered in a
manner that supports deferring to patient preference
when the pt is:
- Requesting an ordered lesser potent pain medication.
Least to most potent pain medications are defined
as: acetaminophen < NSAID < tramadol < opioids
(morphine, oxycodone, hydromorphone).
- Requesting a lesser dose of the same medication IF
ORDERED.
- Requesting a less intrusive route of administration
if both routes are prescribed by the provider (PO <
IV).
04/14/25 18:57
Code Status As Directed
Resuscitation Status: Do not resuscitate
Reached after discussion with pt or family/Healthcare POA: Yes
Decision communicated with: patient, spouse, son
DNR Bracelet Application ONCE
04/14/25 21:23
Albuterol [ProAIR HFA INHALER] 2 puff INH R Q6HPRN PRN sob
Amiodarone [Pacerone] 200 mg PO BID
Bisacodyl [Dulcolax] 10 mg RECTAL DAILYPRN PRN if no bm x 3 days
Calcium Carbonate [Oscal Geo 500] 1,000 mg PO BID
Cefdinir [Omnicef] 300 mg PO BID
Cholecalciferol (Vitamin D3) [VITAMIN D3 (cholecalciferol)] 50 mcg PO BID
Docusate W/Senna [Senokot-S] 2 tablet PO BIDPRN PRN constipation
Guaifenesin [Mucinex] 1,200 mg PO Q12
Lidocaine 4% Cream [Lmx 4] 1 applic TOPICAL Q4HPRN PRN mild pain
Magnesium Hydroxide [Milk of Magnesia] 30 ml PO HSPRN PRN if no bm by 2nd day
Oxycodone [Roxicodone] 5 mg PO Q6HPRN PRN severe pain
Phosphate Enema [Fleet Phosphate Enema-Adult] 135 ml RECTAL DAILYPRN PRN IF NO BM X4 DAYS
04/14/25 21:23
Case Management Consult ONCE
Case Management Consult: Discharge Planning
Activity As Directed
Activity Level: As Tolerated
Fentanyl Patch Confirmation BID@0700,1900
Intake/ Output As Directed
Frequency: q12h
Vital Signs As Directed
Frequency: Per unit guidelines
Weight As Directed
Frequency: Daily
Type of Scale: Standing Scale
Comment: Daily morning weight. If unable to stand, use balanced bed scale.
Weight As Directed
Frequency: Once
Type of Scale: Standing Scale
Comment: Upon Admission. If unable to stand, use balanced bed scale.
O2 Therapy [RESP] Routine
Titrate/Wean O2 to maintain O2 sat greater than (%): 93
Pulse Ox/cont/shift [RESP] Routine
Quantity: 1
Special Instructions: Daily pulse oximetry at rest. If greater than 92% at rest also obtain pulse oximetry
while ambulating as tolerated.
Ot Eval And Treat Routine
Pt Eval And Treat Routine
Activity Level: As Tolerated
Speech Therapy Eval & Treat Routine
04/14/25 22:00
Acetaminophen [Tylenol] 650 mg PO Q6H
Apixaban [Eliquis] 2.5 mg PO BID
Atorvastatin [Lipitor] 80 mg PO HS
FentaNYL 12 MCG/HR PATCH [Duragesic 12 Mcg/Hr Patch] 1 patch TRANSDERM Q72H
FentaNYL 25 MCG/HR PATCH [Duragesic 25 Mcg/Hr Patch] 1 patch TRANSDERM Q72H
Gabapentin [Neurontin] 300 mg PO HS
Latanoprost [Xalatan Ophthalmic Solution] See Dose Instructions BOTH EYES HS
Mirtazapine [Remeron] 15 mg PO HS
REMOVE fentaNYL PATCH [Remove Duragesic Patch] See Dose Instructions REMOVE Q72H
04/14/25 22:15
Fluticasone/Salmeterol 115/21 [Advair Hfa 115/21 Mcg Inhaler] 2 puff INH R BID
04/14/25 23:00
Sodium Chloride 1 gram PO BID
04/15/25 06:00
Basic Metabolic Panel IN AM
Complete Blood Count/No Diff IN AM
04/15/25 08:00
Collagenase [Santyl Ointment] 1 applic TOPICAL DAILY
Furosemide [Lasix] 20 mg PO DAILY
Hydrocortisone [Hydrocortisone 1% Lotion] See Dose Instructions TOPICAL DAILY
Magnesium Oxide 400 mg PO DAILY
Midodrine [ProAmatine] 10 mg PO TID@0800,1300,1800
Pantoprazole [Protonix] 40 mg PO DAILY
Prednisone [Deltasone] 40 mg PO DAILY
Psyllium [Metamucil, Konsyl] 1 packet PO DAILY
Abnormal Lab Results
04/14/25
16:52
WBC 14.4 H 10^3/uL
(4.8-10.8)
RBC 3.86 L 10^6/uL
(4.70-6.10)
Hgb 10.4 L g/dL
(13.0-18.0)
Hct 33.9 L %
(39.0-52.0)
MCH 26.9 L pg
(27.0-31.0)
MCHC 30.7 L g/dL
(33.0-37.0)
RDW 18.6 H %
(11.5-14.5)
Abs Immat Gran (auto) 0.1 H 10^3/uL
(0-0.05)
Absolute Neuts (auto) 13.7 H 10^3/uL
(1.4-6.5)
Absolute Lymphs (auto) 0.3 L 10^3/uL
(1.2-3.4)
Neutrophils % 94.9 H %
(42.2-75.2)
Lymphocytes % 1.7 L %
(20.5-51.1)
Carbon Dioxide 34 H mmol/L
(22-30)
BUN 31 H mg/dl
(9-20)
Creatinine 0.5 L mg/dL
(0.7-1.3)
Glucose 110 H mg/dl
(70-99)
Calcium 8.3 L mg/dl
(8.4-10.2)
04/14/25 16:52
04/14/25 16:52
Vital Signs
Initial and Last Documented VS:
Initial Vital Signs
Pulse Ox
94
04/14/25 16:21
Last Documented Vital Signs
Temp Pulse Resp BP Pulse Ox
98.3 F 76 18 106/62 96
04/14/25 16:23 04/14/25 20:00 04/14/25 20:00 04/14/25 16:29 04/14/25 20:00
Manager Implementation consulted with Physician
Manager Implementation consulted with physician?: Yes
Name of Physician Consulted: Reagan
<Lei Kirk, DO - Last Filed: 04/14/25 18:50>
Orders/Labs/Results
Orders:
Orders
04/14/25 16:38
Oxycodone [Roxicodone] 5 mg PO NOW STA
04/14/25 16:52
Basic Metabolic Panel Urgent
Complete Blood Count/With Diff Urgent
04/14/25 18:54
Admit/Transfer Patient As Directed
Co-Sign Provider:
Level of Care: Observation services
Assign to:: Medical/Surgical
Physician / Group: Bertha Bach
Diagnosis: dysphagia
PRN Pain Medication Management As Directed
May give lesser potent ordered pain med per pt: Yes
preference::
Protocol:: Medication orders for pain may be administered in a
manner that supports deferring to patient preference
when the pt is:
- Requesting an ordered lesser potent pain medication.
Least to most potent pain medications are defined
as: acetaminophen < NSAID < tramadol < opioids
(morphine, oxycodone, hydromorphone).
- Requesting a lesser dose of the same medication IF
ORDERED.
- Requesting a less intrusive route of administration
if both routes are prescribed by the provider (PO <
IV).
04/14/25 18:57
Code Status As Directed
Resuscitation Status: Do not resuscitate
Reached after discussion with pt or family/Healthcare POA: Yes
Decision communicated with: patient, spouse, son
DNR Bracelet Application ONCE
04/14/25 21:23
Albuterol [ProAIR HFA INHALER] 2 puff INH R Q6HPRN PRN sob
Amiodarone [Pacerone] 200 mg PO BID
Bisacodyl [Dulcolax] 10 mg RECTAL DAILYPRN PRN if no bm x 3 days
Calcium Carbonate [Oscal Geo 500] 1,000 mg PO BID
Cefdinir [Omnicef] 300 mg PO BID
Cholecalciferol (Vitamin D3) [VITAMIN D3 (cholecalciferol)] 50 mcg PO BID
Docusate W/Senna [Senokot-S] 2 tablet PO BIDPRN PRN constipation
Guaifenesin [Mucinex] 1,200 mg PO Q12
Lidocaine 4% Cream [Lmx 4] 1 applic TOPICAL Q4HPRN PRN mild pain
Magnesium Hydroxide [Milk of Magnesia] 30 ml PO HSPRN PRN if no bm by 2nd day
Oxycodone [Roxicodone] 5 mg PO Q6HPRN PRN severe pain
Phosphate Enema [Fleet Phosphate Enema-Adult] 135 ml RECTAL DAILYPRN PRN IF NO BM X4 DAYS
04/14/25 21:23
Case Management Consult ONCE
Case Management Consult: Discharge Planning
Activity As Directed
Activity Level: As Tolerated
Fentanyl Patch Confirmation BID@0700,1900
Intake/ Output As Directed
Frequency: q12h
Vital Signs As Directed
Frequency: Per unit guidelines
Weight As Directed
Frequency: Daily
Type of Scale: Standing Scale
Comment: Daily morning weight. If unable to stand, use balanced bed scale.
Weight As Directed
Frequency: Once
Type of Scale: Standing Scale
Comment: Upon Admission. If unable to stand, use balanced bed scale.
O2 Therapy [RESP] Routine
Titrate/Wean O2 to maintain O2 sat greater than (%): 93
Pulse Ox/cont/shift [RESP] Routine
Quantity: 1
Special Instructions: Daily pulse oximetry at rest. If greater than 92% at rest also obtain pulse oximetry
while ambulating as tolerated.
Ot Eval And Treat Routine
Pt Eval And Treat Routine
Activity Level: As Tolerated
Speech Therapy Eval & Treat Routine
04/14/25 22:00
Acetaminophen [Tylenol] 650 mg PO Q6H
Apixaban [Eliquis] 2.5 mg PO BID
Atorvastatin [Lipitor] 80 mg PO HS
FentaNYL 12 MCG/HR PATCH [Duragesic 12 Mcg/Hr Patch] 1 patch TRANSDERM Q72H
FentaNYL 25 MCG/HR PATCH [Duragesic 25 Mcg/Hr Patch] 1 patch TRANSDERM Q72H
Gabapentin [Neurontin] 300 mg PO HS
Latanoprost [Xalatan Ophthalmic Solution] See Dose Instructions BOTH EYES HS
Mirtazapine [Remeron] 15 mg PO HS
REMOVE fentaNYL PATCH [Remove Duragesic Patch] See Dose Instructions REMOVE Q72H
04/14/25 22:15
Fluticasone/Salmeterol 115/21 [Advair Hfa 115/21 Mcg Inhaler] 2 puff INH R BID
04/14/25 23:00
Sodium Chloride 1 gram PO BID
04/15/25 06:00
Basic Metabolic Panel IN AM
Complete Blood Count/No Diff IN AM
04/15/25 08:00
Collagenase [Santyl Ointment] 1 applic TOPICAL DAILY
Furosemide [Lasix] 20 mg PO DAILY
Hydrocortisone [Hydrocortisone 1% Lotion] See Dose Instructions TOPICAL DAILY
Magnesium Oxide 400 mg PO DAILY
Midodrine [ProAmatine] 10 mg PO TID@0800,1300,1800
Pantoprazole [Protonix] 40 mg PO DAILY
Prednisone [Deltasone] 40 mg PO DAILY
Psyllium [Metamucil, Konsyl] 1 packet PO DAILY
Abnormal Lab Results
04/14/25
16:52
WBC 14.4 H 10^3/uL
(4.8-10.8)
RBC 3.86 L 10^6/uL
(4.70-6.10)
Hgb 10.4 L g/dL
(13.0-18.0)
Hct 33.9 L %
(39.0-52.0)
MCH 26.9 L pg
(27.0-31.0)
MCHC 30.7 L g/dL
(33.0-37.0)
RDW 18.6 H %
(11.5-14.5)
Abs Immat Gran (auto) 0.1 H 10^3/uL
(0-0.05)
Absolute Neuts (auto) 13.7 H 10^3/uL
(1.4-6.5)
Absolute Lymphs (auto) 0.3 L 10^3/uL
(1.2-3.4)
Neutrophils % 94.9 H %
(42.2-75.2)
Lymphocytes % 1.7 L %
(20.5-51.1)
Carbon Dioxide 34 H mmol/L
(22-30)
BUN 31 H mg/dl
(9-20)
Creatinine 0.5 L mg/dL
(0.7-1.3)
Glucose 110 H mg/dl
(70-99)
Calcium 8.3 L mg/dl
(8.4-10.2)
04/14/25 16:52
04/14/25 16:52
Vital Signs
Initial and Last Documented VS:
Initial Vital Signs
Pulse Ox
94
04/14/25 16:21
Last Documented Vital Signs
Temp Pulse Resp BP Pulse Ox
98.3 F 76 18 106/62 96
04/14/25 16:23 04/14/25 20:00 04/14/25 20:00 04/14/25 16:29 04/14/25 20:00
<Malou Foy, CULINARY INSTRUCTOR - Last Filed: 04/14/25 22:17>
MDM/Problems Addressed
MDM/Problems Addressed:
79 yo male with hx lung CA with mets to bone, chronic significant R shoulder pain, on Fentanyl patch 37 mcg and Oxycodone 5 mg, presents for 'the social sciences chair sent me here they think I have problem swallowing.
I spoke with nurse Stratton at [facility] who states:
Pt is new admit to [facility] last night. He has cough but has lung CA and was DC'd from here days 3 ago for PNA, is on antibiotics, here again yesterday for fatigue, family think he was not well cared for at [facility] so brought him back here, he
was DC'd to [facility]. As new admission to [facility], Speech therapist eval and sent here for 'swallow study and esophagram' for dysphagia.
Pt and family state he's had this moist cough due to lung Ca and recent PNA. Pt and family state he ate a large meal last night with no problem. Pt states he has no problem swallowing and is hungry.
I called [facility] and informed these are out pt studies, the told me they cannot take him back. Pt nd family very nice, frustrated. Have to get Case Management involved Pt has been on Palliative Care per family.
Hospitalist notified of admission.
Dr. Kirk in to evaluate
<Malou Foy, CULINARY INSTRUCTOR - Last Filed: 04/14/25 22:17>
*Pulse Oximetry
SaO2: 95
Nasal Cannula flow liters per minute: 4
Patient hypoxic: yes (Arrived on O2 4L NC, when removed, pulse ox 88% RA, placed back on 2L and pulse ox 95%)
*Critical Care Note
Total Time (30-74mins, 75-104mins- exclusive of procedures): Not Applicable
ED Attending Note
<Malou Foy CULINARY INSTRUCTOR - Last Filed: 04/14/25 22:17>
-
Portions of this chart may have been created with voice recognition software.� Occasional wrong word or��sound alike� substitutions may have occurred due to the inherent limitations of voice recognition software.
<Lei Kirk DO - Last Filed: 04/14/25 18:50>
ED Attending Note
Patient seen and examined by attending physician: Yes
I performed the substantive portion of visit, reviewed & personally made and approve the management plan that is documented in note by myself or KAYLAN.: Yes
I performed a history and physical exam of patient and discussed management with resident, I reviewed resident's note and agree with documented findings and plan of care.: Yes
ED Attending Note:
79-year-old male [facility] for [facility] of swallowing difficulty. Patient denies any difficulty swallowing at the current time. VS reviewed, mmm, awake and alert x3, moving extremities without focal deficit. Nurse
practitioner was able to speak with staff at his [facility] and unfortunately there is no availability for him to return tonight. They are also requesting esophogram and formal swallowing study. Patient presentation was reviewed with
hospitalist, patient admitted in stable condition.
Discharge Plan
Departure
Patient Disposition: Admit
Date of Disposition: 04/14/25
Time of Disposition: 17:30
Admit to: Med/Surg
Presentation/result/management discussed w/ accepting MD/DO: Hospitalist
Condition: Fair
Discharge Problem:
Cancer, metastatic to bone, Dysphagia
Interventions
Interventions:
*Risk Screen - Suicide Last Done: 04/14/25 16:23
*General Assessment Last Done: 04/14/25 16:23
*Neglect/Abuse Screening Last Done: 04/14/25 16:23
*Nursing Disposition Last Done: 04/14/25 20:59
ED-EENT Assessment Last Done: 04/14/25 17:09
EM-Fmhwuo-Bbovusnimn Assessment Last Done: 04/14/25 17:09
ED- Pulmonary Assessment Last Done: 04/14/25 17:10
ED- Neurological Assessment Last Done: 04/14/25 16:23
ED Swallowing Screen Last Done: 04/14/25 16:35
Discharge Date and Time
Discharge Date/Time: 04/14/25 20:59
[2025-04-14] MEDS: ROXICODONE 5 MG PO (17:05)
[2025-04-14 17:10] LABS: Hematocrit 33.9 % (39.0-52.0); Hemoglobin 10.4 g/dL (13.0-18.0); Mean Corp Hgb Conc. 30.7 g/dL (33.0-37.0); Mean Corpuscular Volume 87.8 fL (80.0-94.0); Nucleated Red Blood Cells % 0 % (-); Platelet Count 289 10^3/uL (130-400); Red Cell Dist. Width 18.6 % (11.5-14.5)
[2025-04-14 17:47] LABS: Blood Urea Nitrogen 31 mg/dl (9-20); Calcium 8.3 mg/dl (8.4-10.2); Carbon Dioxide 34 mmol/L (22-30); Chloride 99 mmol/L (98-107); Estimated Creatinine Clearance 75 ml/min; Glucose 110 mg/dl (70-99); Sodium 136 mmol/L (135-145); eGFR > 60.00
--- NOTE | 2025-04-14 17:55 | HPS.HSE ---
Addendum entered and electronically signed by Bertha Bach MD 04/14/25 21:25:
This is an addendum to the H&P written by Bertha Fleming on 04/14/2025. �Patient seen and examined independently with DIRECTOR OF SPORTS PERFORMANCE
79-year-old male past medical history of stage IV non-small cell lung cancer with widespread osseous metastatic disease on 4 L after recent treatment for pneumonia, chronic HFpEF, atrial fibrillation, hypertension, hyperlipidemia, COPD, BPH, SIADH,
presenting with dysphagia.
He had dysphagia a year ago was cleared to have regular diet and medications. �He saw ENT who trialed PPI at that time without improvement.
Patient recently admitted for pneumonia treated and discharged to [facility] on 4 L oxygen. �Patient came back to the emergency room yesterday was replaced to [employer]. �[facility] sent in for dysphagia. �Family is concerned that there medication
was not accurate. �Patient states he has no problems swallowing tolerate regular diet and medications.
Bedside nursing swallow examination was unremarkable.
Vital signs unremarkable. �Chest x-ray yesterday shows persistent right mid/lower lung opacities including 1.6 cm nodule posterior to represent chronic scarring but pneumonitis/pneumonia cannot be excluded.
Check speech and swallow evaluation, patient may have pharyngeal dysphagia although does not clinically seem very severe. �Likely may require video barium swallow. �case management for placement.
Original Note:
Family Physician
-
Family Physician: Akilah Jacobo DO
Chief Complaint
-
difficulty swallowing
History of Present Illness
Patient is a 79-year-old male with past medical history significant for stage IV non-small lung cancer with bone mets, paroxysmal atrial fibrillation, chronic HFpEF, hypertension, hyperlipidemia, COPD and BPH who presented to [facility] ED for evaluation
of difficulty swallowing. Patient recently hospitalized for PNA and discharged 04/10/2025, returned yesterday for evaluation and placement to new SNF. Patient was discharged from ED to [facility] senior living. This morning at [facility] was evaluated
by their speech team, who made patient strict NPO for difficulty swallowing. Patient spouse and son at bedside, who are visibly frustrated as they do not believe patient is having any difficulties swallowing. Patient denies any discomfort and offers
no complaints at thist time. Frankie Iverson speech therapist informed ED that patient would need 'swallow study and esophagram' and would not be able to return until evaluation was completed.
Medical History
Past Medical History
Past Medical History: Reports Other
Additional Past Medical History:
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
SVC Syndrome
Chronic Pain with Opioid Dependence
Paroxysmal Atrial Fibrillation
Chronic HFpEF
SIADH
Essential Hypertension
Hyperlipidemia
COPD
BPH
Past Surgical History: Reports Other
Additional Past Surgical History:
Appendectomy
Hernia Repair
Right Shoulder Surgery
Left Wrist Carpectomy
Bilateral Cataracts
Social History
Tobacco: Former Smoker
Alcohol: None
Drug: None
Personal:
Family History
Family History: Not pertinent
Allergies / Home Medications
Allergies reflects when Allergies were last updated in [facility].
Home Medications with original date entered in [facility]
Allergy/Medication List:
Allergies
Allergy/AdvReac Type Severity Reaction Status Date / Time
levetiracetam (From Kera) AdvReac Severe Fatigue Verified 04/14/25 16:21
acetaminophen AdvReac Intermediate LFT Verified 04/14/25 16:21
abnormalities
Hayfever Allergy Sneezing, Uncoded 04/14/25 16:21
watery/itchy
eyes,
stuffy nose
Home Medications
bisacodyl 10 mg rectal suppository (Dulcolax (bisacodyl)) 10 mg CA DAILYPRN PRN if no bm x 3 days 05/14/24
gabapentin 300 mg capsule 300 mg PO HS Neurological Condition 11/18/24
psyllium 1 packet PO DAILY Constipation 11/18/24
sennosides 8.6 mg-docusate sodium 50 mg tablet (Senokot-S) 2 tab-cap PO BIDPRN PRN constipation 11/18/24
calcium carbonate 1,000 mg PO BID Supplement ##0 01/20/25
sodium phosphates 19 gram-7 gram/118 mL enema (Fleet Enema) 118 ml CA DAILYPRN PRN IF NO BM X4 DAYS 02/21/25
midodrine 5 mg tablet 10 mg (2 x 5 mg) PO TID@0800,1300,1800 Blood pressure #90 tabs 03/10/25
albuterol sulfate 90 mcg/actuation aerosol inhaler 2 puff inhalation R Q6HPRN PRN sob 04/05/25
cholecalciferol (vitamin D3) 50 mcg (2,000 unit) capsule (Vitamin D3) 50 mcg PO BID Supplement 04/05/25
collagenase clostridium histo. 250 unit/gram topical ointment (Santyl) 1 applic topical DAILY Wound care 04/05/25
fluticasone 113mcg-salmeterol 14mcg/actuation breath act,powder sensor (AirDuo Digihaler) 1 inh inhalation R BID Lung/Breathing Issues 04/05/25
hydrocortisone 1 % lotion 1 applic topical DAILY Itchy areas, rash 04/05/25
latanoprost 0.005 % eye drops 1 drp BOTH EYES HS Eye Condition 04/05/25
lidocaine 4 % topical cream 1 applic topical Q4HPRN PRN mild pain 04/05/25
magnesium hydroxide 400 mg/5 mL oral suspension (Milk of Magnesia) 2,400 mg PO HSPRN PRN if no bm by 2nd day 04/05/25
magnesium oxide 400 mg PO DAILY Supplement 04/05/25
mirtazapine 15 mg tablet (Remeron) 15 mg PO HS Mental Health/Anxiety 04/05/25
pantoprazole 40 mg tablet,delayed release (Protonix) 40 mg PO DAILY Gastrointestinal Issue 04/05/25
pembrolizumab 25 mg/mL intravenous solution (Keytruda) 200 mg IV Q21D Cancer 04/05/25
sodium chloride 1 gram tablet 1,000 mg PO BID Electrolyte Repletion 04/05/25
amiodarone 200 mg tablet 200 mg PO DAILY Arrhythmia #30 tabs 04/08/25
amiodarone 200 mg tablet (Pacerone) 200 mg PO BID Arrhythmia #60 tabs 04/08/25
apixaban 5 mg tablet (Eliquis) 2.5 mg (1/2 x 5 mg) PO BID Blood clot prevention/tx #60 tabs 04/08/25
furosemide 20 mg tablet 20 mg PO DAILY Heart Failure #30 tabs 04/08/25
acetaminophen 325 mg tablet 650 mg (2 x 325 mg) PO Q6H Shoulder pain #30 tabs 04/09/25
cefdinir 300 mg capsule 300 mg PO BID Pneumonia #14 caps 04/09/25
fentanyl 12 mcg/hr transdermal patch 1 patch transdermal Q72H severe pain #1 ea 04/09/25
fentanyl 25 mcg/hr transdermal patch 1 patch transdermal Q72H severe Pain #1 patch 04/09/25
guaifenesin 600 mg tablet, extended release 12 hr 1,200 mg (2 x 600 mg) PO Q12 #14 tabs 04/09/25
oxycodone 5 mg tablet 5 mg PO Q6HPRN PRN severe pain #3 tabs 04/09/25
prednisone 10 mg tablet See Rx Instructions .Route .COMPLEX #30 tabs 04/09/25
atorvastatin 80 mg tablet 80 mg PO HS 04/13/25
Review of Systems
-
History Source: Patient and Family
Constitutional: Reports Weight Loss; Denies Fever or Chills
EENT: Denies Sore Throat
Respiratory: Reports Cough and Trouble Breathing
Cardiac: Denies Chest Pain, Diaphoresis, Palpitations or Syncope
Abdomen/GI: Reports Constipated; Denies Abdominal Pain, Nausea or Vomiting
: Denies Dysuria, Frequency, Difficulty Voiding or Urgency
Musculoskeletal: Denies Joint Pain or Edema
Skin: Denies Rash
Neurological: Denies Dizzy, Headache or Numbness
Physical Exam
Vital Signs
Vital Signs
Temp Pulse Resp BP Pulse Ox
98.3 F 75 20 106/62 95
04/14/25 16:23 04/14/25 16:23 04/14/25 16:23 04/14/25 16:23 04/14/25 16:37
Physical Exam
General: Well Developed, No Apparent Distress, Comfortable, Appears Chronically Ill and Cachectic
HEENT: NormoCephalic, Anicteric, Moist mucous membranes, Nose Appears Normal and Ears Appear Normal
Respiratory: Clear, Non Labored Respirations and Other (moist cough )
Cardiac: S1/S2 and Regular Rhythm; No Murmur, Rub or Gallop
GI: Soft, Non Tender, Non Distended and Normal Bowel Sounds
Musculoskeletal: No Clubbing and No Cyanosis; No Edema, Left Upper Extremity, Edema, Right Upper Extremity, Edema, Left Lower Extremity or Edema, Right Lower Extremity
Skin: Warm and Dry
Neuro: Awake, AO x 3, Nonfocal/grossly intact and Tremors (lt hand tremor, history of not new per patient )
Psych: Calm
Laboratory Results
-
04/14/25 16:52
04/14/25 16:52
Laboratory Results
Total Bilirubin Cancelled 04/14/25 16:52
AST Cancelled 04/14/25 16:52
ALT Cancelled 04/14/25 16:52
Alkaline Phosphatase Cancelled 04/14/25 16:52
Data Reviewed
-
Lab Data: Labs Reviewed by me (WBC 14.4, Neut 94.9)
Impression/Plan
-
IMPRESSION/PLAN:
#Dysphagia
WBC 14.4, Neut 94.9
- Admit to med/surg
- Consult PT/OT
- Consult case management
- consult speech
#pneumonia
- continue cefdinir and guaifenesin
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
follows with Dr. Sandoval at [facility]
- Keytruda q21D, next scheduled dose tomorrow 04/15/2025
- continue fentanyl patch, gabapentin and oxycodone
#Paroxysmal Atrial Fibrillation
- continue amiodarone and Eliquis
#Chronic HFpEF
- daily weights
- I & Os
- continue furosemide
#SIADH
- continue sodium chloride
#Hyperlipidemia
- continue atorvastatin
#GERD
- continue pantoprazole
#COPD
- continue AirDuo, albuterol and prednisone
#depression/anxiety
- continue mirtazapine
Code status: DNR
DVT prophlaxis: Eliquis
[2025-04-14 20:49] VITALS: BP 125/51
--- NOTE | 2025-04-14 21:10 | PTCARENOTE ---
Patient received from ED. Patient was transferred over from stretcher. Patients vitals were stable and call torres was within reach.
[2025-04-14] MEDS: OMNICEF 300 MG PO (23:41)
[2025-04-14 23:42] VITALS: BP 135/48
[2025-04-14] MEDS: ELIQUIS 2.5 MG PO (23:42)
[2025-04-14] MEDS: MUCINEX 1200 MG PO (23:42)
[2025-04-14] MEDS: NEURONTIN 300 MG PO (23:42)
[2025-04-14] MEDS: OSCAL CAL 500 1000 MG PO (23:43)
[2025-04-14] MEDS: LIPITOR 80 MG PO (23:43)
[2025-04-14] MEDS: TYLENOL 650 MG PO (23:43)
[2025-04-14] MEDS: PACERONE 200 MG PO (23:44)
[2025-04-14] MEDS: REMOVE DURAGESIC PATCH 1 PATCH REMOVE ×2 (23:45)
[2025-04-14] MEDS: DURAGESIC 12 MCG/HR PATCH 1 PATCH TRANSDERM (23:46)
[2025-04-14] MEDS: DURAGESIC 25 MCG/HR PATCH 1 PATCH TRANSDERM (23:47)
[2025-04-14] MEDS: XALATAN OPHTHALMIC SOLUTION 1 DROP BOTH EYES (23:48)
[2025-04-14] MEDS: REMERON 15 MG PO (23:54)
[2025-04-14] MEDS: VITAMIN D3 (cholecalciferol) 50 MCG PO (23:54)
[2025-04-15] VITALS (10 sets, daily range): BP systolic 99–137; BP diastolic 49–64; BMI 18.3; BMI 16.4
[2025-04-15] MEDS: SODIUM CHLORIDE 1 GRAM PO (00:20)
[2025-04-15] MEDS: TYLENOL PO ×2 (05:00→11:30)
[2025-04-15] MEDS: HYDROCORTISONE 1% LOTION 1 APPLIC TOPICAL (08:39)
[2025-04-15] MEDS: SANTYL OINTMENT 1 APPLIC TOPICAL (08:40)
[2025-04-15 08:42] LABS: Hematocrit 37.4 % (39.0-52.0); Hemoglobin 11.6 g/dL (13.0-18.0); Mean Corp Hgb Conc. 31.0 g/dL (33.0-37.0); Mean Corpuscular Volume 90.3 fL (80.0-94.0); Platelet Count 357 10^3/uL (130-400); Red Cell Dist. Width 18.9 % (11.5-14.5)
[2025-04-15 08:57] LABS: Blood Urea Nitrogen 28 mg/dl (9-20); Calcium 8.8 mg/dl (8.4-10.2); Carbon Dioxide 34 mmol/L (22-30); Chloride 99 mmol/L (98-107); Estimated Creatinine Clearance 67 ml/min; Glucose 108 mg/dl (70-99); Potassium 4.3 mmol/L (3.5-5.1); Sodium 137 mmol/L (135-145); eGFR > 60.00
--- NOTE | 2025-04-15 09:00 | PTOTSP ---
Speech Language Pathology
Pt seen for clincial bedside swallow evaluation. Pt with eyes open with audible breathing, mostly no visual tracking, although did visually fixate on SIGNALS ANALYST x1. Attempted thin liquids via pipetted straw. Pt with no active acceptance with oral cavity
wide open. Attempted to manually close jaw without success. No oral movements noted in response to a few drops of cold water in anterior oral cavity. Further P.O. trials deferred. Notable 10 second apneic periods. Took vitals with Sp02 at 81%.
HR between 41 and high 50s. Notified RN. 02 was increased slowly to 6LPM with increase in Sp02 to 86%. RN messaging resident to notify of current status. Not appropriate for any P.O. intake at this time.
Recommend:
(1) Strict NPO
(2) Non-oral meds
(3) Oral care 4x/day with suctioning as needed
(4) Not appropriate for Aspiration Risk Hydration Protocol (ARHP) at this time
(5) SIGNALS ANALYST to continue to follow
--- NOTE | 2025-04-15 09:18 | PTCARENOTE ---
Having periods of apnea, was able to track w his eyes but not consistently. Speech in at present . Oxygen bumped up to 6 L.. does not follow commands, moans with turning and repositioning
--- NOTE | 2025-04-15 09:38 | PTCARENOTE ---
Resp put him on 10 L mid flow , sats in low 90's (93-94) Heart rate bradycardic 50- low 60
--- NOTE | 2025-04-15 09:40 | CON.PUL ---
Consultation
Consultation Request
Date/Time Consultation Requested: 04/15/2025
Date/Time Consultation Performed: 04/15/2025
Requesting Provider: Dr. Lopez
Performing Provider: Dr. Mickey Norman
Reason for Consultation: Acute hypoxemic respiratory failure
Medical History
-
History of Present Illness:
79-year-old male with past medical history significant for atrial fibrillation on chronic anticoagulation, hypertension, COPD with metastatic lung cancer currently on Keytruda who presented recently to the emergency room on 04/13/2024 with
generalized weakness, worsening shortness of breath for the last 3 to 4 days. Recently treated with antibiotics for possible pneumonia discharged 3 days ago from the hospital.
Reports decreased oral intake and fatigue.
Return to the emergency room on 04/14/2025 with similar complaints. Initially to [facility] and after discharge from the emergency room and transferred to [facility].
There is concern for chronic microaspiration. Patient reports dysphagia.
Patient remains on oral antibiotics for his recent pneumonia. Leukocytosis is present
Chest x-ray 04/13/2025 there is persistent right/mid/lower lung opacities including a 1.6 nodular opacity.
proBNP elevated in the 4000's.
This morning 04/15/2025 I was called emergently for worsening hypoxemia up to 10 L.
Change in mental status
-
To my evaluation at the bedside patient obtunded. Only opening eyes to tactile stimuli.
Nonverbal
Shallow breathing.
Accessory muscle usage.
Past Medical History
Past Medical History: Other (See assessment and plan)
Social History
Tobacco: Former Smoker
Alcohol: None
Drug: None
Personal:
Living: With Family
Family History
Family History: Unable to Obtain
Allergies / Home Medications
Allergies
Allergy/AdvReac Type Severity Reaction Status Date / Time
acetaminophen Allergy LFT Verified 04/14/25 21:35
abnormalities
levetiracetam (From Kera) Allergy Fatigue Verified 04/14/25 21:36
pollen extracts Allergy HAYFEVER-Sneezing, Verified 04/14/25 21:35
watery/itchy
eyes,
stuffy nose
Home Medications
�Medication �Instructions �Recorded �Confirmed �Last Taken �Type
bisacodyl 10 mg rectal suppository 10 mg MO DAILYPRN PRN if no bm x 3 05/14/24 04/14/25 Unknown History
(Dulcolax (bisacodyl)) days
gabapentin 300 mg capsule 300 mg PO HS Neurological Condition 11/18/24 04/14/25 02/28/25 08:00 History
psyllium 1 packet PO DAILY Constipation 11/18/24 04/14/25 Unknown History
sennosides 8.6 mg-docusate sodium 2 tab-cap PO BIDPRN PRN 11/18/24 04/14/25 Unknown History
50 mg tablet (Senokot-S) constipation
calcium carbonate 1,000 mg PO BID Supplement ##0 01/20/25 04/14/25 02/28/25 08:00 History
sodium phosphates 19 gram-7 118 ml MO DAILYPRN PRN IF NO BM X4 02/21/25 04/14/25 Unknown History
gram/118 mL enema (Fleet Enema) DAYS
midodrine 5 mg tablet 10 mg (2 x 5 mg) PO 03/10/25 04/14/25 Unknown Rx
TID@0800,1300,1800 Blood pressure
#90 tabs
albuterol sulfate 90 mcg/actuation 2 puff inhalation R Q6HPRN PRN sob 04/05/25 04/14/25 Unknown History
aerosol inhaler
cholecalciferol (vitamin D3) 50 50 mcg PO BID Supplement 04/05/25 04/14/25 Unknown History
mcg (2,000 unit) capsule (Vitamin
D3)
collagenase clostridium histo. 250 1 applic topical DAILY Wound care 04/05/25 04/14/25 Unknown History
unit/gram topical ointment (Santyl)
fluticasone 113mcg-salmeterol 1 inh inhalation R BID 04/05/25 04/14/25 Unknown History
14mcg/actuation breath act,powder Lung/Breathing Issues
sensor (AirDuo Digihaler)
hydrocortisone 1 % lotion 1 applic topical DAILY Itchy 04/05/25 04/14/25 Unknown History
areas, rash
latanoprost 0.005 % eye drops 1 drp BOTH EYES HS Eye Condition 04/05/25 04/14/25 Unknown History
lidocaine 4 % topical cream 1 applic topical Q4HPRN PRN mild 04/05/25 04/14/25 Unknown History
pain
magnesium hydroxide 400 mg/5 mL 2,400 mg PO HSPRN PRN if no bm by 04/05/25 04/14/25 Unknown History
oral suspension (Milk of Magnesia) 2nd day
magnesium oxide 400 mg PO DAILY Supplement 04/05/25 04/14/25 Unknown History
mirtazapine 15 mg tablet (Remeron) 15 mg PO HS Mental Health/Anxiety 04/05/25 04/14/25 Unknown History
pantoprazole 40 mg tablet,delayed 40 mg PO DAILY Gastrointestinal 04/05/25 04/14/25 Unknown History
release (Protonix) Issue
pembrolizumab 25 mg/mL intravenous 200 mg IV Q21D Cancer 04/05/25 04/14/25 Unknown History
solution (Keytruda)
sodium chloride 1 gram tablet 1,000 mg PO BID Electrolyte 04/05/25 04/14/25 Unknown History
Repletion
amiodarone 200 mg tablet 200 mg PO DAILY Arrhythmia #30 tabs 04/08/25 04/14/25 Unknown Rx
amiodarone 200 mg tablet (Pacerone) 200 mg PO BID Arrhythmia #60 tabs 04/08/25 04/14/25 Unknown Rx
apixaban 5 mg tablet (Eliquis) 2.5 mg (1/2 x 5 mg) PO BID Blood 04/08/25 04/14/25 Unknown Rx
clot prevention/tx #60 tabs
furosemide 20 mg tablet 20 mg PO DAILY Heart Failure #30 04/08/25 04/14/25 Unknown Rx
tabs
acetaminophen 325 mg tablet 650 mg (2 x 325 mg) PO Q6H 04/09/25 04/14/25 Unknown Rx
Shoulder pain #30 tabs
cefdinir 300 mg capsule 300 mg PO BID Pneumonia #14 caps 04/09/25 04/14/25 Unknown Rx
fentanyl 12 mcg/hr transdermal 1 patch transdermal Q72H severe 04/09/25 04/14/25 Unknown Rx
patch pain #1 ea
fentanyl 25 mcg/hr transdermal 1 patch transdermal Q72H severe 04/09/25 04/14/25 Unknown Rx
patch Pain #1 patch
guaifenesin 600 mg tablet, 1,200 mg (2 x 600 mg) PO Q12 #14 04/09/25 04/14/25 Unknown Rx
extended release 12 hr tabs
oxycodone 5 mg tablet 5 mg PO Q6HPRN PRN severe pain #3 04/09/25 04/14/25 Unknown Rx
tabs
prednisone 10 mg tablet See Rx Instructions .Route 04/09/25 04/14/25 Unknown Rx
.COMPLEX #30 tabs
atorvastatin 80 mg tablet 80 mg PO HS High Cholesterol 04/13/25 04/14/25 Unknown History
Review of Systems
-
Unable to Obtain full review of systems at this time due to: Acuity
Vitals / Labs / Diagnostic Testing
Vital Signs
Temp Pulse Resp BP Pulse Ox
97.8 F 85 18 137/61 95
04/15/25 08:01 04/15/25 08:01 04/15/25 08:01 04/15/25 08:01 04/15/25 08:01
Lab Data
04/15/25 07:40
04/15/25 07:40
Diagnostic Testing:
Physical Exam
-
HEENT: Normocephalic
Cardiovascular: S1/S2
Respiratory: Rhonchi (Minimal bilaterally), Accessory Resp Muscle Use and Other (Shallow breathing)
GI: Soft
Neurology: Other (Neck is supple, pupils are equal. Occasionally opening eyes.) and Other (Obtunded, only opening eyes to verbal stimuli. Not following commands.)
Skin: Warm
General: Respiratory Distress (At rest)
Assessment
-
79-year-old man with widely metastatic lung cancer, malnutrition, recent admission to the hospital for pneumonia on oral antibiotics. Discharged to rehab, came to the emergency room few days later for failure to thrive, dysphagia, debilitation.
Sent back to [facility]. Readmitted to [facility] for dysphagia. Overnight patient developed change in mental status-this morning obtunded, more hypoxemic up to 10 L nasal cannula. Not responsive. I was emergently consulted on 04/15/2025 for
evaluation.
Patient is critically ill
Acute hypoxemic respiratory failure currently on 10 L nasal cannula
Suspected acute hypercapnic respiratory failure/hypoventilation
With leukocytosis and abnormal chest x-ray: Cannot rule out aspiration event.
Suspect sepsis component-patient unable to mount a response due to severe protein caloric malnutrition
Rule out other source of infection
Cannot rule out EMR ANALYST event such as a stroke
Conditions present prior admission:
Discharged from [facility] 04/10/2025 after evaluation for exacerbation of COPD/hypoxemia possibly heart failure.
Stage IV NSCLC/right upper lung lung lesion: Status post XRT in 2019.
Now on Keytruda. Widespread osseous metastatic disease, retroperitoneum and bilateral pulmonary nodules
Initially diagnosed in 2019
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
Chronic HFpEF
Atrial fibrillation
Orthostatic hypotension
Dysphagia
Hypertension
Hyperlipidemia
BPH
Obstructive sleep apnea, severe
Central apnea
Hernia repair
Bilateral cataract surgery
Former smoker
Right shoulder pain status post ORIF
Malnutrition
Depression
Glaucoma
-
Assessment and plan:
Patient is critically ill: Abrupt onset change in mental status and worsening hypoxemia.
Up to 10 L nasal cannula
To my evaluation patient obtunded, only opening eyes to tactile stimuli.
Shallow breathing, accessory muscle usage.
-
Differential diagnosis is broad.
Including sepsis component and inability to mount a response in this patient that it is significant now large and debilitated due to metastatic lung cancer currently on Keytruda.
Chest x-ray: Bilateral infiltrates similar to before.
Patient does have a leukocytosis but is afebrile.
Does have metabolic acidosis suggesting either volume depletion or CO2 retention.
-
Repeat chest x-ray rule out worsening pneumonia
Blood cultures, UA to rule out other source of infection
Agree with broad-spectrum antibiotics for now
-
Obtain ABG-I did discuss with family that this patient is not a candidate for noninvasive mechanical ventilation.
Head of the bed elevation
Continue with oxygen supplementation currently at 10 L
Patient is DNR status
Discontinue fentanyl patch which can impair respiratory drive.
-
Obtain TSH
Will add IV corticosteroids for the possibility of relatively adrenal insufficiency and also treat residual COPD exacerbation which is not severe.
Obtain magnesium and phosphorus-patient is significant malnourished. Hypophosphatemia can cause muscle weakness.
-
History of dysphagia: Patient is malnourished.
If survives/improve may need further swallowing evaluation.
N.p.o. for now
Head of the bed elevation
-
proBNP was elevated before-no evidence for volume overload on my exam.
No indications for IV diuresis.
-
Cannot rule out EMR ANALYST event such as acute CVA-unable to obtain CT head due to poor mental status and respiratory decompensation.
Discussed with family as well-unlikely to military exchange wireless manager.
If he clinically improves may be a consideration depending on mental status.
-
Hold inhalers-unable to perform due to obtundation
Nebulizers 3 times a day
IV steroids as above
-
DVT prophylaxis patient on anticoagulation-if unable to get a Dobbhoff tube or take orals may need to transition to heparin drip.
-
Transfer to intermediate care unit.
-
Dr. Norman had extensive discussion with family over the phone-they understand critical situation. Supportive care for now.
Poor prognosis.
-
Critical care statement: A total of 38 minutes of critical care time was provided for this patient today. This includes management of unstable vital signs, evaluation of the patient at bedside, reviewing the patient's pertinent medical records
including ventilator settings, arterial blood gases, radiographs, microbiology, laboratory evaluations and discussion with primary team, critical care nursing, and respiratory therapy.
--- NOTE | 2025-04-15 10:13 | W.PN.HOSP.TC ---
Today's Communication/Plan
-
see bold
Assessment / Plan
Assessment / Plan
HPI: 79-year-old male past medical history of stage IV non-small cell lung cancer with widespread osseous metastatic disease on 4 L after recent treatment for pneumonia, chronic HFpEF, atrial fibrillation, hypertension, hyperlipidemia, COPD, BPH,
SIADH, presenting with dysphagia. He had dysphagia a year ago was cleared to have regular diet and medications. �He saw ENT who trialed PPI at that time without improvement. Patient recently admitted for pneumonia treated and discharged to [facility] on 4 L oxygen. �Patient came back to the emergency room yesterday was replaced to Freeze [facility]. �[place] [facility] sent in for dysphagia. �Family is concerned that there medication was not accurate. �Patient states he has no problems swallowing tolerate
regular diet and medications.
#Acute on chronic hypoxic respiratory failure
Patient currently requiring 10 L of oxygen, he was recently discharged on 4 L
Suspect likely due to stage IV lung cancer and pneumonia, treat as below
#Recent pneumonia
#History of COPD
Patient still on cefdinir, now changed to IV Zosyn
Appreciate pulmonology input, unable to use CPAP or BiPAP due to lack of cough effort
Prednisone changed to IV steroids
Continue supportive care, continue bronchodilators
#Altered mental status
Head CT negative, TSH 4.98
Pulmonology recommends discontinuation of fentanyl patch and sedating medications
Check B12 level, c/s neurology
#Stage IV metastatic lung cancer
#Widespread osseous metastatic disease
Follows with Dr. Sandoval
Appreciate oncology input, patient appears to be actively dying with life expectancy of hours�days
Oncology, pulmonology, and myself have spoken with the family and relayed that patient is actively dying
Family wishes to continue workup and treatment, as they said hospice 'would not be his wishes'
#Dysphagia
Speech recommends strict n.p.o., gentle IVFs
#Orthostatic hypotension
Resume midodrine when able
#Chronic HFpEF
Hold lasix
#Paroxysmal atrial fibrillation
Resume amiodarone & eliquis when able
IV metoprolol as needed
#Hx of SIADH
Resume sodium chloride tablets when able
#Severe protein calorie malnutrition
DVT prophylaxis�subcu Lovenox while unable to take Eliquis
DNR
Updated son and twice 04/15
Total time spent to see the patient on the floor, examine the patient, review data and lab results, discuss treatment plan with patient, nursing staff around 60 minutes.
Physical Exam
General: Appears chronically ill
HEENT: Normocephalic, Atraumatic, EOMI, MMM
Respiratory: Coarse breath sounds diffusely
Cardiac: Normal S1/S2, Regular Rate and Rhythm
GI: Soft, Nontender, Nondistended, Normal Bowel Sounds
Extremities: No Clubbing, Cyanosis, or Edema
Neuro: Eyes open, not answering questions, not following commands
Anticipated Discharge: 24 - 48 hours
Subjective/Interval History
-
Date of Service: April 15, 2025
Notified by nursing staff that patient not answering questions, not following commands. He does respond to pain. He is also requiring more oxygen, 10 L. No fever, no vomiting.
Objective Data
-
Labs:
Laboratory Results
04/15/25 04/15/25
07:40 09:49
WBC 16.5 H
Hgb 11.6 L
Hct 37.4 L
Plt Count 357 D
HCO3 Pending
Sodium 137
Potassium 4.3
Chloride 99
Carbon Dioxide 34 H
BUN 28 H
Creatinine 0.5 L
Glucose 108 H
Calcium 8.8
Vital Signs:
Vital Signs
Temp Pulse Resp BP Pulse Ox
97.8 F 85 18 137/61 95
04/15/25 08:01 04/15/25 08:01 04/15/25 08:01 04/15/25 08:01 04/15/25 08:01
--- NOTE | 2025-04-15 10:15 | CM ---
CM spoke with Liaison at [facility], per Liaison patient son indicating that they will not hold bed at [facility] as physicians are continuing medical work up at this time. Liaison indicated if patient was appropriate for [facility] they would consider accepting
patient pending bed availability. CM will continue to follow for discharge planning needs.
Plan; pending
--- NOTE | 2025-04-15 10:45 | PTCARENOTE ---
Patient transferred to IMU.
Family notified
[2025-04-15 10:49] LABS: B.E. 5.5 mmol/L; HCO3 31.9 mmol/L (21-28); O2 Saturation % 97.9 % (94-98); PCO2 54 mmHg (35-48); PO2 85 mmHg (83-108)
--- NOTE | 2025-04-15 10:56 | VNURNOTE ---
Chart reviewed. PLASTIC [facility]WER pt was at [facility]. Last hospitalization, pt was current with [facility]. Will continue to follow for final DC dispo plans.
[2025-04-15 10:59] LABS: Magnesium 2.3 mg/dl (1.6-2.3)
[2025-04-15] MEDS: ELIQUIS PO (11:28)
[2025-04-15] MEDS: VITAMIN D3 (cholecalciferol) PO (11:29)
[2025-04-15] MEDS: MUCINEX PO (11:29)
[2025-04-15] MEDS: PACERONE PO (11:29)
[2025-04-15] MEDS: SODIUM CHLORIDE PO (11:29)
[2025-04-15] MEDS: OSCAL CAL 500 PO (11:29)
[2025-04-15] MEDS: OMNICEF PO (11:30)
[2025-04-15] MEDS: ZOSYN 50 IV ×3 (11:51→22:25)
[2025-04-15] MEDS: NSS 1000 IV (11:51)
[2025-04-15] MEDS: DECADRON 4 MG IV ×2 (11:52→22:24)
--- NOTE | 2025-04-15 11:54 | CM ---
Addendum entered by Winnie North 04/15/25 11:59:
Chart reviewed; Patient typically resides with spouse in a 1SH with 2STE, and uses the WW/SPC/Rollator for ambulation, patient has Shower seat, commode, and CPAP at home per chart review. Patient has had placements at [facility] and [facility]
in last several months. Patient PCP is Dr. Fitzpatrick and [facility] is what patient uses for pharmacy needs. Patient in discussion with physician regarding medical treatment plans.
Plan; pending medical treatment plan
Original Note:
Patient seen at bedside with patient son and present now in IMU. Patient physician came to discuss and CM will return to complete assessment. CM will continue to follow for discharge planning needs.
Plan; pending medical treatment plan
[2025-04-15 12:09] LABS: TSH 4.98 uIU/ml (0.47-4.68)
--- NOTE | 2025-04-15 12:19 | CON.ONC ---
Consultation
-
Date Consultation Requested: 04/15/25
Date Consultation Performed: 04/15/25
Requesting Provider: Juliocesar Lopez
Performing Provider: Juvenal
Reason for Consultation: Lung Ca
Impression
Impression
Acute hypoxemic respiratory failure
COPD/hypoxemia possibly heart failure.
Stage IV NSCLC/right upper lung lung lesion: Status post XRT in 2019 now on Keytruda. Widespread osseous metastatic disease, retroperitoneum and bilateral pulmonary nodules. Restaging PET delayed during recent hospitalization
COPD
Chronic HFpEF
Atrial fibrillation
Orthostatic hypotension
Dysphagia
Plan
Plan
Seems to be end stage lung cancer and actively dying.
Family agrees to DNR (wishes shock if needed but no CPR - explained that is not feasible).
They keep pushing back on hospice care when suggested. They say 'that would not be his wishes.'
Suspect advanced lung cancer and moribund status but cannot rule out other comorbid issues for example aspiration PNA or stroke.
For nor as per family wishes...continue workup as tolerated.
Px poor. Suspect iminent and life expentency hours-days.
No evidence of NA or Ca issues that we sometimes see nor dehydration.
Patient History
History of Present Illness
79-year-old male with metastatic lung cancer currently on Keytruda who presented recently to the emergency room on 04/13/2024 with generalized weakness, worsening shortness of breath for the last 3 to 4 days. Recently treated with antibiotics for
possible pneumonia discharged 3 days ago from the hospital. Reports decreased oral intake and fatigue. Return to the emergency room on 04/14/2025 with similar complaints. Initially to [facility] and after discharge from the emergency room and
transferred to [facility]. Chest x-ray 04/13/2025 there is persistent right/mid/lower lung opacities including a 1.6 nodular opacity. This morning 04/15/2025 patient transferred to IMU for worsening hypoxemia up to 10 L and change in mental status.
Currently he is nonverbal, shallow breathing, accessory muscle usage and appears to be actively dying.
Asked by Attending to join a family meeting with son and . He is DNR but wish a through evaluation as he was better a few days ago and blame his current situation on being discharged too soon form hospital or not getting adequate care (oral
nuitrition or PO antibiotics) at SNF.
Past-Medical/Surgical History
PMH: atrial fibrillation on chronic anticoagulation, hypertension, COPD with metastatic lung cancer currently on Keytruda, orthostasis
Patient Medication
�Medication �Instructions �Recorded �Confirmed �Last Taken �Type
bisacodyl 10 mg rectal suppository 10 mg FL DAILYPRN PRN if no bm x 3 05/14/24 04/14/25 Unknown History
(Dulcolax (bisacodyl)) days
gabapentin 300 mg capsule 300 mg PO HS Neurological Condition 11/18/24 04/14/25 02/28/25 08:00 History
psyllium 1 packet PO DAILY Constipation 11/18/24 04/14/25 Unknown History
sennosides 8.6 mg-docusate sodium 2 tab-cap PO BIDPRN PRN 11/18/24 04/14/25 Unknown History
50 mg tablet (Senokot-S) constipation
calcium carbonate 1,000 mg PO BID Supplement ##0 01/20/25 04/14/25 02/28/25 08:00 History
sodium phosphates 19 gram-7 118 ml FL DAILYPRN PRN IF NO BM X4 02/21/25 04/14/25 Unknown History
gram/118 mL enema (Fleet Enema) DAYS
midodrine 5 mg tablet 10 mg (2 x 5 mg) PO 03/10/25 04/14/25 Unknown Rx
TID@0800,1300,1800 Blood pressure
#90 tabs
albuterol sulfate 90 mcg/actuation 2 puff inhalation R Q6HPRN PRN sob 04/05/25 04/14/25 Unknown History
aerosol inhaler
cholecalciferol (vitamin D3) 50 50 mcg PO BID Supplement 04/05/25 04/14/25 Unknown History
mcg (2,000 unit) capsule (Vitamin
D3)
collagenase clostridium histo. 250 1 applic topical DAILY Wound care 04/05/25 04/14/25 Unknown History
unit/gram topical ointment (Santyl)
fluticasone 113mcg-salmeterol 1 inh inhalation R BID 04/05/25 04/14/25 Unknown History
14mcg/actuation breath act,powder Lung/Breathing Issues
sensor (AirDuo Digihaler)
hydrocortisone 1 % lotion 1 applic topical DAILY Itchy 04/05/25 04/14/25 Unknown History
areas, rash
latanoprost 0.005 % eye drops 1 drp BOTH EYES HS Eye Condition 04/05/25 04/14/25 Unknown History
lidocaine 4 % topical cream 1 applic topical Q4HPRN PRN mild 04/05/25 04/14/25 Unknown History
pain
magnesium hydroxide 400 mg/5 mL 2,400 mg PO HSPRN PRN if no bm by 04/05/25 04/14/25 Unknown History
oral suspension (Milk of Magnesia) 2nd day
magnesium oxide 400 mg PO DAILY Supplement 04/05/25 04/14/25 Unknown History
mirtazapine 15 mg tablet (Remeron) 15 mg PO HS Mental Health/Anxiety 04/05/25 04/14/25 Unknown History
pantoprazole 40 mg tablet,delayed 40 mg PO DAILY Gastrointestinal 04/05/25 04/14/25 Unknown History
release (Protonix) Issue
pembrolizumab 25 mg/mL intravenous 200 mg IV Q21D Cancer 04/05/25 04/14/25 Unknown History
solution (Keytruda)
sodium chloride 1 gram tablet 1,000 mg PO BID Electrolyte 04/05/25 04/14/25 Unknown History
Repletion
amiodarone 200 mg tablet 200 mg PO DAILY Arrhythmia #30 tabs 04/08/25 04/14/25 Unknown Rx
amiodarone 200 mg tablet (Pacerone) 200 mg PO BID Arrhythmia #60 tabs 04/08/25 04/14/25 Unknown Rx
apixaban 5 mg tablet (Eliquis) 2.5 mg (1/2 x 5 mg) PO BID Blood 04/08/25 04/14/25 Unknown Rx
clot prevention/tx #60 tabs
furosemide 20 mg tablet 20 mg PO DAILY Heart Failure #30 04/08/25 04/14/25 Unknown Rx
tabs
acetaminophen 325 mg tablet 650 mg (2 x 325 mg) PO Q6H 04/09/25 04/14/25 Unknown Rx
Shoulder pain #30 tabs
cefdinir 300 mg capsule 300 mg PO BID Pneumonia #14 caps 04/09/25 04/14/25 Unknown Rx
fentanyl 12 mcg/hr transdermal 1 patch transdermal Q72H severe 04/09/25 04/14/25 Unknown Rx
patch pain #1 ea
fentanyl 25 mcg/hr transdermal 1 patch transdermal Q72H severe 04/09/25 04/14/25 Unknown Rx
patch Pain #1 patch
guaifenesin 600 mg tablet, 1,200 mg (2 x 600 mg) PO Q12 #14 04/09/25 04/14/25 Unknown Rx
extended release 12 hr tabs
oxycodone 5 mg tablet 5 mg PO Q6HPRN PRN severe pain #3 04/09/25 04/14/25 Unknown Rx
tabs
prednisone 10 mg tablet See Rx Instructions .Route 04/09/25 04/14/25 Unknown Rx
.COMPLEX #30 tabs
atorvastatin 80 mg tablet 80 mg PO HS High Cholesterol 04/13/25 04/14/25 Unknown History
Active Medications
Generic Name Dose Route Start Last Admin
Trade Name Freq PRN Reason Stop Dose Admin
Acetaminophen 650 mg 04/14/25 22:00 04/15/25 11:30
Acetaminophen 325 Mg Tablet PO 05/12/25 21:59 Not Given
Q6H RAFAEL
Albuterol 2 puff 04/14/25 21:23
Albuterol Hfa [90 Mcg/Dose] Inhaler INH
R Q6HPRN PRN
sob
Protocol
Albuterol/Ipratropium 3 ml 04/15/25 09:35
Ipratropium 0.5/Albuterol 3 Mg (3 Ml Ampul) INH
R Q4HPRN PRN
SOB/wheezing
Protocol
Amiodarone HCl 200 mg 04/14/25 21:23 04/15/25 11:29
Amiodarone 200 Mg Tablet PO 05/12/25 21:22 Not Given
BID RAFAEL
Apixaban 2.5 mg 04/14/25 22:00 04/15/25 11:28
Apixaban (Eliquis) 2.5 Mg Tablet PO 05/12/25 21:59 Not Given
BID RAFAEL
Atorvastatin Calcium 80 mg 04/14/25 22:00 04/14/25 23:43
Atorvastatin (Lipitor) 80 Mg Tablet PO 05/12/25 21:59 80 mg
HS RAFAEL Administration
Bisacodyl 10 mg 04/14/25 21:23
Bisacodyl 10 Mg Rectal Suppository RECTAL 05/12/25 21:22
DAILYPRN PRN
if no bm x 3 days
Calcium Carbonate 1,000 mg 04/14/25 21:23 04/15/25 11:29
Calcium Carbonate 500 Mg Tablet PO 05/12/25 21:22 Not Given
BID RAFAEL
Cholecalciferol 50 mcg 04/14/25 21:23 04/15/25 11:29
Cholecalciferol (Vitamin D3) 50 Mcg Tablet (2,000 Units) PO 05/12/25 21:22 Not Given
BID RAFAEL
Collagenase 1 applic 04/15/25 08:00 04/15/25 08:40
Collagenase Ointment 2.5 Gram Jar TOPICAL 05/13/25 07:59 1 applic
DAILY RAFAEL Administration
Dexamethasone Sodium Phosphate 4 mg 04/15/25 11:00 04/15/25 11:52
Dexamethasone 4 Mg/Ml 1 Ml Vial IV 05/13/25 10:59 4 mg
Q8H RAFAEL Administration
Furosemide 20 mg 04/15/25 08:00 04/15/25 11:28
Furosemide 20 Mg Tablet PO 05/13/25 07:59 Not Given
DAILY RAFAEL
Gabapentin 300 mg 04/14/25 22:00 04/14/25 23:42
Gabapentin 300 Mg Capsule PO 05/12/25 21:59 300 mg
HS RAFAEL Administration
Guaifenesin 1,200 mg 04/14/25 21:23 04/15/25 11:29
Guaifenesin 600 Mg Extended Release Tablet PO 05/12/25 21:22 Not Given
Q12 RAFAEL
Hydrocortisone 0 applic 04/15/25 08:00 04/15/25 08:39
Hydrocortisone 1% (Lotion) 120 Ml Bottle TOPICAL 05/13/25 07:59 1 applic
DAILY RAFAEL Administration
Piperacillin Sod/Tazobactam Sod 3.375 gram in 50 mls @ 100 mls/hr 04/15/25 10:00 04/15/25 11:51
Zosyn IV 50 mls
Q6H RAFAEL Administration
Sodium Chloride 1,000 mls @ 55 mls/hr 04/15/25 11:15 04/15/25 11:51
Nss IV 1,000 mls
[id number] RAFAEL Administration
Latanoprost 0 drop 04/14/25 22:00 04/14/25 23:48
Latanoprost 0.005% (Ophthalmic Solution) 2.5 Ml Bottle BOTH EYES 05/12/25 21:59 1 drop
HS RAFAEL Administration
Lidocaine 0 applic 04/14/25 21:23
Lidocaine 4% Cream/Tegaderm Dressing 5 Gram Tube TOPICAL 05/12/25 21:22
Q4HPRN PRN
mild pain
Magnesium Hydroxide 30 ml 04/14/25 21:23
Milk Of Magnesia 30 Ml Cup PO 05/12/25 21:22
HSPRN PRN
if no bm by 2nd day
Magnesium Oxide 400 mg 04/15/25 08:00 04/15/25 11:28
Magnesium Oxide 400 Mg Tablet PO 05/13/25 07:59 Not Given
DAILY RAFAEL
Midodrine 10 mg 04/15/25 08:00 04/15/25 12:11
Midodrine 5 Mg Tablet PO 05/13/25 07:59 Not Given
TID@0800,1300,1800 RAFAEL
Mirtazapine 15 mg 04/14/25 22:00 04/14/25 23:54
Mirtazapine 15 Mg Regular Release Tablet PO 05/12/25 21:59 15 mg
HS RAFAEL Administration
Oxycodone HCl 5 mg 04/14/25 21:23
Oxycodone 5 Mg Regular Release Tablet PO 04/28/25 21:22
Q6HPRN PRN
severe pain
Pantoprazole Sodium 40 mg 04/15/25 08:00 04/15/25 11:29
Pantoprazole 40 Mg Delayed Release Tablet PO 05/13/25 07:59 Not Given
DAILY RAFAEL
Patch Removal 0 patch 04/14/25 22:00 04/14/25 23:45
Remove Fentanyl Patch REMOVE 04/28/25 21:59 1 patch
Q72H RAFAEL Administration
Patch Removal 0 patch 04/14/25 22:00 04/14/25 23:45
Remove Fentanyl Patch REMOVE 04/28/25 21:59 1 patch
Q72H RAFAEL Administration
Psyllium Hydrophilic Mucilloid 1 packet 04/15/25 08:00 04/15/25 11:29
Psyllium Packet PO 05/13/25 07:59 Not Given
DAILY RAFAEL
Senna/Docusate Sodium 2 tablet 04/14/25 21:23
Docusate W/Senna (Page-Colace) Tablet PO 05/12/25 21:22
BIDPRN PRN
constipation
Sodium Biphosphate/Sodium Phosphate 135 ml 04/14/25 21:23
Fleet Phosphate Enema (Adult) 135 Ml Bottle RECTAL 05/12/25 21:22
DAILYPRN PRN
IF NO BM X4 DAYS
Sodium Chloride 1 gram 04/14/25 23:00 04/15/25 11:29
Sodium Chloride 1 Gram Tablet PO 05/12/25 22:59 Not Given
BID RAFAEL
Sodium Chloride 0 flush 04/14/25 22:00
Sodium Chloride 0.9% (Flush) Syringe IV 05/12/25 21:59
PER PROTOCOL RAFAEL
Review of Systems
-
Unable to obtain full review of systems at this time due to: Patient Non Verbal
Physical Exam
-
General: Cachetic and Other (moribund appearance)
Cardiology: Irregular Rate/Rhythm (Bradycardia)
Labs
Lab Results
WBC 16.5 10^3/uL (4.8-10.8) H 04/15/25 07:40
RBC 4.14 10^6/uL (4.70-6.10) L 04/15/25 07:40
Hgb 11.6 g/dL (13.0-18.0) L 04/15/25 07:40
Hct 37.4 % (39.0-52.0) L 04/15/25 07:40
MCV 90.3 fL (80.0-94.0) 04/15/25 07:40
MCH 28.0 pg (27.0-31.0) 04/15/25 07:40
MCHC 31.0 g/dL (33.0-37.0) L 04/15/25 07:40
RDW 18.9 % (11.5-14.5) H 04/15/25 07:40
Plt Count 357 10^3/uL (130-400) D 04/15/25 07:40
MPV 10.3 fL (7.4-10.4) 04/15/25 07:40
Abs Immat Gran (auto) 0.1 10^3/uL (0-0.05) H 04/14/25 16:52
Absolute Neuts (auto) 13.7 10^3/uL (1.4-6.5) H 04/14/25 16:52
Absolute Lymphs (auto) 0.3 10^3/uL (1.2-3.4) L 04/14/25 16:52
Absolute Monos (auto) 0.4 10^3/uL (0.1-0.6) 04/14/25 16:52
Absolute Eos (auto) 0.0 10^3/uL (0-0.7) 04/14/25 16:52
Absolute Basos (auto) 0.0 10^3/uL (0-0.2) 04/14/25 16:52
Immature Gran % 0.5 % (0-0.5) 04/14/25 16:52
Neutrophils % 94.9 % (42.2-75.2) H 04/14/25 16:52
Lymphocytes % 1.7 % (20.5-51.1) L 04/14/25 16:52
Monocytes % 2.7 % (1.7-9.3) 04/14/25 16:52
Eosinophils % 0.1 % (0-6) 04/14/25 16:52
Basophils % 0.1 % (0-2) 04/14/25 16:52
Creatinine 0.5 mg/dL (0.7-1.3) L 04/15/25 07:40
Vital Signs
Vital Signs
Temp Pulse Resp BP Pulse Ox
97.8 F 85 18 137/61 95
04/15/25 08:01 04/15/25 08:01 04/15/25 08:01 04/15/25 08:01 04/15/25 08:01
--- NOTE | 2025-04-15 14:18 | W.PN.UPDATE ---
Update Note
Progress Note Update
Came to reevaluate patient. Still lethargic. Opens eye to painful stimuli.
Occasional trying to speak but with shallow breathing.
Laboratories: Normal magnesium and phosphorus.
TSH slightly elevated but does not suspect significant hypothyroidism.
Chest x-ray with bilateral abnormalities: Cannot rule out new infiltrate in the left lower base. Difficult to interpret as the patient has chronic changes.
ABG with compensated hypercapnic respiratory failure.
CT head with atrophy but without any acute abnormalities.
Continue IV steroids
Continue antibiotics
Aspiration precautions
Head of the bed elevation
-
Change in mental status may be related to hypoactive delirium.
Discussed with family at the bedside in detail. Patient is critically ill, high risk of not surviving.
Will continue supportive care-I did discuss with family that if this patient develops respiratory distress-or his illness progresses consider to keep him comfortable. They understand and agree with that.
Discontinue all sedatives-discussed with nursing.
If patient has a cough effort tonight may use his CPAP. Otherwise would hold due to his poor mental status.
-
Will follow
[2025-04-15] MEDS: REMOVE DURAGESIC PATCH 1 PATCH REMOVE ×2 (14:31)
--- NOTE | 2025-04-15 14:53 | CM ---
Initial Assessment Completed by SABINO Gavin.
Patient lives with is [facility] in a 1 level house with 2 steps to enter. Patient uses multiple devices:
-Single Cane
-Rolling Walker
-Rollator
-Shower Seat
-Commode
-CPAP.
PCP: Dr. Jimenez Fitzpatrick
Pharmacy: [facility]
Patient went to [facility] on 04/10 and family did not like this facility so returned to the ER on Friday 04/13 then sent to [facility]. Now, here back in the IMU on 04/15 due to dysphasia.
PLAN: Likely SNF
[2025-04-15] MEDS: DULCOLAX 10 MG RECTAL (15:16)
--- NOTE | 2025-04-15 15:22 | WOUNDNOTE ---
SACRUM, LEFT BUTTOCKS
--- NOTE | 2025-04-15 15:35 | WOUNDNOTE ---
WO RN note: Patient admitted with sepsis.
See H&P for complete history.
PMH: 79-year-old male past medical history of stage IV non-small cell lung cancer with widespread osseous metastatic disease on 4 L after recent treatment for pneumonia, chronic HFpEF, atrial fibrillation, hypertension, hyperlipidemia, COPD, BPH,
SIADH, presenting with dysphagia.
Wound Location and type/assessment: Patient admitted with: L buttock suspected evolving DTI, non blanchable dark maroon area. Remainder of skin with MASD, sacral silicone foam in use. Heels are intact. When turning patient he moaned in pain and
attempted to hit this script writer out of the way saying it hurts.
Appetite: Poor.
Pressure redistribution devices in place:On air mattress, asked nurse Christophe to keep patient on air mattress if transferred to floor. Pillow under calves.
Plan: Recommend continue with sacral silicone foam and offloading. Suspect due to poor medical condition and despite preventative measures, patient may develop additional PI's. Will confirm orders with hospitalist and updated nurse.
Updated care plan and will follow as needed.
Note to case management of equipment requested for discharge: Air mattress
[2025-04-15 15:40] LABS: Urine Character Slightly Cloudy (Clear)
--- NOTE | 2025-04-15 15:44 | WOUNDNOTE ---
PATRICIA RN ADDENDUM: Discontinued Santyl, not appropriate for L buttock ulcer at this time, will confirm with hospitalist and notify nurse.
[2025-04-15 15:49] LABS: Urine Squamous Cell 0-2 /LPF (Few)
[2025-04-15] MEDS: PROTONIX IV 40 MG IV (16:25)
[2025-04-15] MEDS: OFIRMEV 100 IV (16:25)
[2025-04-15] MEDS: NSS (PRESERVATIVE FREE) 10 ML IV (16:25)
--- NOTE | 2025-04-15 16:32 | CON.NEURO ---
Consultation
Order
Date of Consultation: 04/15/25
Requesting Provider: Juliocesar Lopez MD
Reason for Consult: encephalopathy
Neurology Consultation Note.
HPI: This is a 79-year-old man who presented to [facility] on 04/14/2025 with hypoxia and dysphagia.
Neurology consultation was requested for an evaluation and management of encephalopathy.
According to patient's family Mr. Higgins was found minimally responsive early in the morning today.
At the baseline before recent infection patient was ambulating with a walker and able to hold conversation. He does have history of parkinsonism and mild executive dysfunction. The patient was briefly put on Keppra for convulsive syncope in the
past.
Patient's oxygen requirements has increased despite of reduction pain regimen.
Review of vital signs was notable for transient hypotension down to 86/43 on 04/09/2025.
PDMP: Oxycodone Hcl (Ir) 5 Mg 60 tabs filled in on 04/14/2025, Fentanyl 25 Mcg/hr 5 Patchs filled in on 04/14/2025, Fentanyl 12 Mcg/hr Patch filled in on 04/14/2025.
Labs: WBC 16.5, normal Na, TSH 4.98
CT head wo contrast�chronic right caudate nucleus infarct, Paranasal sinus disease
MAR: Fentanyl patch, Zosyn,
PDMP: Oxycodone Hcl (Ir) 5 Mg 60 tabs filled in on 04/14/2025, Fentanyl 25 Mcg/hr 5 Patchs filled in on 04/14/2025, Fentanyl 12 Mcg/hr Patch filled in on 04/14/2025.
PMH: stage IV non-small cell lung cancer on Keytruda, chronic HFpEF, AFib, HTN, DLP, COPD, BPH, SIADH, BMI 16, vitamin D deficiency, h/o TASIA
PSH: Bilateral cataract surgery, right shoulder ORIF
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
FH: Not contributory to current presentation
All:Keppra
ROS: Unable to obtain
General: Cachectic, in no acute distress
Cardio: Regular rate and rhythm without murmur. Extremities are without cyanosis or edema.
Neuro:
Mental Status: Somnolent, requires verbal and tactile stimulation to stay awake. Oriented to self, person not to location. Follows simple requests intermittently. Poor attention. Nonfluent
Cranial Nerves: Pupils are equally round, surgical . Horizontal EOMs full. Blinks to threat bilaterally intermittently. No ptosis. No nystagmus. Face symmetric. Preserved hearing AU. Moderate to severe dysarthria
Motor: all limbs are antigravity (right upper arm pain limited)
Reflexes: Bilateral grasp
Sensory: Localizes noxious stim
Coordination: Right greater than left resting hand tremor
Gait: deferred
Assessment and Plan:
I. Multifactorial encephalopathy (vascular, toxic)
II. Stage IV non-small cell lung carcinoma
III. Dysarthria with hypoxia. Rule out LEMS
IV. Parkinsonism/MCI
-Aspiration precautions.
-Avoid cerebral hypoperfusion, ORDER EDITOR suppressants and anticholinergic medications.
-please check vit B12, ammonia
-Brain MRI w/wo donal
-Check VGCCs if brain MRI is unremarkable
- DVT prophylaxis
- The case was discussed with patient's son and spouse present at bedside.
I personally reviewed all radiology and labs along with past medical records pertinent to current medical problems. Total time spent in patient care is 55 minutes.
Thank you for allowing us to participate in the care of this patient. We will continue to follow. Please do not hesitate to contact us with any questions or concerns.
Subjective/Objective
Subjective Data
Date of Service: April 15, 2025
Objective Data
Vital Signs
Temp Pulse Resp BP Pulse Ox
36.6 C 85 18 137/61 95
04/15/25 08:01 04/15/25 08:01 04/15/25 08:01 04/15/25 08:01 04/15/25 08:01
Lab Results
04/15/25 07:40
04/15/25 07:40
Sodium 137 mmol/L (135-145) 04/15/25 07:40
Potassium 4.3 mmol/L (3.5-5.1) 04/15/25 07:40
BUN 28 mg/dl (9-20) H 04/15/25 07:40
Glucose 108 mg/dl (70-99) H 04/15/25 07:40
Calcium 8.8 mg/dl (8.4-10.2) 04/15/25 07:40
Phosphorus 4.3 mg/dl (2.5-4.5) 04/15/25 07:40
Patient Allergies
acetaminophen Allergy (Verified 04/14/25 21:35)
LFT abnormalities
levetiracetam (From Kera) Allergy (Verified 04/14/25 21:36)
Fatigue
pollen extracts Allergy (Verified 04/14/25 21:35)
HAYFEVER-Sneezing, watery/itchy eyes, stuffy nose
Medications
-
Active Medications
Generic Name Dose Route Start Last Admin
Trade Name Freq PRN Reason Stop Dose Admin
Acetaminophen 650 mg 04/15/25 15:30
Acetaminophen 650 Mg Rectal Suppository RECTAL 05/13/25 15:29
Q4HPRN PRN
mild pain or fever
Albuterol 2 puff 04/14/25 21:23
Albuterol Hfa [90 Mcg/Dose] Inhaler INH
R Q6HPRN PRN
sob
Protocol
Albuterol/Ipratropium 3 ml 04/15/25 09:35
Ipratropium 0.5/Albuterol 3 Mg (3 Ml Ampul) INH
R Q4HPRN PRN
SOB/wheezing
Protocol
Amiodarone HCl 200 mg 04/14/25 21:23 04/15/25 11:29
Amiodarone 200 Mg Tablet PO 05/12/25 21:22 Not Given
On Hold: 04/15/25 15:32 BID RAFAEL
Apixaban 2.5 mg 04/14/25 22:00 04/15/25 11:28
Apixaban (Eliquis) 2.5 Mg Tablet PO 05/12/25 21:59 Not Given
On Hold: 04/15/25 15:32 BID RAFAEL
Atorvastatin Calcium 80 mg 04/14/25 22:00 04/14/25 23:43
Atorvastatin (Lipitor) 80 Mg Tablet PO 05/12/25 21:59 80 mg
On Hold: 04/15/25 15:33 HS RAFAEL Administration
Bisacodyl 10 mg 04/14/25 21:23 04/15/25 15:16
Bisacodyl 10 Mg Rectal Suppository RECTAL 05/12/25 21:22 10 mg
DAILYPRN PRN Administration
if no bm x 3 days
Calcium Carbonate 1,000 mg 04/14/25 21:23 04/15/25 11:29
Calcium Carbonate 500 Mg Tablet PO 05/12/25 21:22 Not Given
On Hold: 04/15/25 15:33 BID RAFAEL
Cholecalciferol 50 mcg 04/14/25 21:23 04/15/25 11:29
Cholecalciferol (Vitamin D3) 50 Mcg Tablet (2,000 Units) PO 05/12/25 21:22 Not Given
On Hold: 04/15/25 15:32 BID RAFAEL
Dexamethasone Sodium Phosphate 4 mg 04/15/25 11:00 04/15/25 11:52
Dexamethasone 4 Mg/Ml 1 Ml Vial IV 05/13/25 10:59 4 mg
Q8H RAFAEL Administration
Furosemide 20 mg 04/15/25 08:00 04/15/25 11:28
Furosemide 20 Mg Tablet PO 05/13/25 07:59 Not Given
On Hold: 04/15/25 15:33 DAILY RAFAEL
Gabapentin 300 mg 04/14/25 22:00 04/14/25 23:42
Gabapentin 300 Mg Capsule PO 05/12/25 21:59 300 mg
On Hold: 04/15/25 15:33 HS RAFAEL Administration
Guaifenesin 1,200 mg 04/14/25 21:23 04/15/25 11:29
Guaifenesin 600 Mg Extended Release Tablet PO 05/12/25 21:22 Not Given
On Hold: 04/15/25 15:33 Q12 RAFAEL
Hydrocortisone 0 applic 04/15/25 08:00 04/15/25 08:39
Hydrocortisone 1% (Lotion) 120 Ml Bottle TOPICAL 05/13/25 07:59 1 applic
DAILY RAFAEL Administration
Piperacillin Sod/Tazobactam Sod 3.375 gram in 50 mls @ 100 mls/hr 04/15/25 10:00 04/15/25 16:25
Zosyn IV 50 mls
Q6H RAFAEL Administration
Sodium Chloride 1,000 mls @ 40 mls/hr 04/15/25 11:15 04/15/25 11:51
Nss IV 1,000 mls
.Q24H RAFAEL Administration
Ketorolac Tromethamine 15 mg 04/15/25 15:30
Ketorolac 15 Mg/Ml Injection IV 04/20/25 15:29
Q6HPRN PRN
mod pain
Latanoprost 0 drop 04/14/25 22:00 04/14/25 23:48
Latanoprost 0.005% (Ophthalmic Solution) 2.5 Ml Bottle BOTH EYES 05/12/25 21:59 1 drop
HS RAFAEL Administration
Lidocaine 0 applic 04/14/25 21:23
Lidocaine 4% Cream/Tegaderm Dressing 5 Gram Tube TOPICAL 05/12/25 21:22
Q4HPRN PRN
mild pain
Magnesium Hydroxide 30 ml 04/14/25 21:23
Milk Of Magnesia 30 Ml Cup PO 05/12/25 21:22
HSPRN PRN
if no bm by 2nd day
Midodrine 10 mg 04/15/25 08:00 04/15/25 12:11
Midodrine 5 Mg Tablet PO 05/13/25 07:59 Not Given
On Hold: 04/15/25 15:33 TID@0800,1300,1800 RAFAEL
Mirtazapine 15 mg 04/14/25 22:00 04/14/25 23:54
Mirtazapine 15 Mg Regular Release Tablet PO 05/12/25 21:59 15 mg
On Hold: 04/15/25 15:33 HS RAFAEL Administration
Oxycodone HCl 5 mg 04/14/25 21:23
Oxycodone 5 Mg Regular Release Tablet PO 04/28/25 21:22
Q6HPRN PRN
severe pain
Pantoprazole Sodium 40 mg 04/15/25 08:00 04/15/25 11:29
Pantoprazole 40 Mg Delayed Release Tablet PO 05/13/25 07:59 Not Given
On Hold: 04/15/25 15:34 DAILY RAFAEL
Pantoprazole Sodium 40 mg 04/15/25 16:00 04/15/25 16:25
Pantoprazole Sodium 40 Mg/10 Ml Vial IV 05/13/25 15:59 40 mg
DAILY RAFAEL Administration
Psyllium Hydrophilic Mucilloid 1 packet 04/15/25 08:00 04/15/25 11:29
Psyllium Packet PO 05/13/25 07:59 Not Given
DAILY RAFAEL
Senna/Docusate Sodium 2 tablet 04/14/25 21:23
Docusate W/Senna (Page-Colace) Tablet PO 05/12/25 21:22
BIDPRN PRN
constipation
Sodium Biphosphate/Sodium Phosphate 135 ml 04/14/25 21:23
Fleet Phosphate Enema (Adult) 135 Ml Bottle RECTAL 05/12/25 21:22
DAILYPRN PRN
IF NO BM X4 DAYS
Sodium Chloride 1 gram 04/14/25 23:00 04/15/25 11:29
Sodium Chloride 1 Gram Tablet PO 05/12/25 22:59 Not Given
On Hold: 04/15/25 15:34 BID RAFAEL
Sodium Chloride 0 flush 04/14/25 22:00
Sodium Chloride 0.9% (Flush) Syringe IV 05/12/25 21:59
PER PROTOCOL RAFAEL
Sodium Chloride 10 ml 04/15/25 16:00 04/15/25 16:25
Sodium Chloride 0.9% (Preservative Free) 10 Ml Vial IV 05/13/25 15:59 10 ml
DAILY RAFAEL Administration
Home Medications
�Medication �Instructions �Recorded
bisacodyl 10 mg rectal suppository 10 mg AK DAILYPRN PRN if no bm x 3 05/14/24
(Dulcolax (bisacodyl)) days
gabapentin 300 mg capsule 300 mg PO HS Neurological Condition 11/18/24
psyllium 1 packet PO DAILY Constipation 11/18/24
sennosides 8.6 mg-docusate sodium 2 tab-cap PO BIDPRN PRN 11/18/24
50 mg tablet (Senokot-S) constipation
calcium carbonate 1,000 mg PO BID Supplement ##0 01/20/25
sodium phosphates 19 gram-7 118 ml AK DAILYPRN PRN IF NO BM X4 02/21/25
gram/118 mL enema (Fleet Enema) DAYS
midodrine 5 mg tablet 10 mg (2 x 5 mg) PO 03/10/25
TID@0800,1300,1800 Blood pressure
#90 tabs
albuterol sulfate 90 mcg/actuation 2 puff inhalation R Q6HPRN PRN sob 04/05/25
aerosol inhaler
cholecalciferol (vitamin D3) 50 50 mcg PO BID Supplement 04/05/25
mcg (2,000 unit) capsule (Vitamin
D3)
collagenase clostridium histo. 250 1 applic topical DAILY Wound care 04/05/25
unit/gram topical ointment (Santyl)
fluticasone 113mcg-salmeterol 1 inh inhalation R BID 04/05/25
14mcg/actuation breath act,powder Lung/Breathing Issues
sensor (AirDuo Digihaler)
hydrocortisone 1 % lotion 1 applic topical DAILY Itchy 04/05/25
areas, rash
latanoprost 0.005 % eye drops 1 drp BOTH EYES HS Eye Condition 04/05/25
lidocaine 4 % topical cream 1 applic topical Q4HPRN PRN mild 04/05/25
pain
magnesium hydroxide 400 mg/5 mL 2,400 mg PO HSPRN PRN if no bm by 04/05/25
oral suspension (Milk of Magnesia) 2nd day
magnesium oxide 400 mg PO DAILY Supplement 04/05/25
mirtazapine 15 mg tablet (Remeron) 15 mg PO HS Mental Health/Anxiety 04/05/25
pantoprazole 40 mg tablet,delayed 40 mg PO DAILY Gastrointestinal 04/05/25
release (Protonix) Issue
pembrolizumab 25 mg/mL intravenous 200 mg IV Q21D Cancer 04/05/25
solution (Keytruda)
sodium chloride 1 gram tablet 1,000 mg PO BID Electrolyte 04/05/25
Repletion
amiodarone 200 mg tablet 200 mg PO DAILY Arrhythmia #30 tabs 04/08/25
amiodarone 200 mg tablet (Pacerone) 200 mg PO BID Arrhythmia #60 tabs 04/08/25
apixaban 5 mg tablet (Eliquis) 2.5 mg (1/2 x 5 mg) PO BID Blood 04/08/25
clot prevention/tx #60 tabs
furosemide 20 mg tablet 20 mg PO DAILY Heart Failure #30 04/08/25
tabs
acetaminophen 325 mg tablet 650 mg (2 x 325 mg) PO Q6H 04/09/25
Shoulder pain #30 tabs
cefdinir 300 mg capsule 300 mg PO BID Pneumonia #14 caps 04/09/25
fentanyl 12 mcg/hr transdermal 1 patch transdermal Q72H severe 04/09/25
patch pain #1 ea
fentanyl 25 mcg/hr transdermal 1 patch transdermal Q72H severe 04/09/25
patch Pain #1 patch
guaifenesin 600 mg tablet, 1,200 mg (2 x 600 mg) PO Q12 #14 04/09/25
extended release 12 hr tabs
oxycodone 5 mg tablet 5 mg PO Q6HPRN PRN severe pain #3 04/09/25
tabs
prednisone 10 mg tablet See Rx Instructions .Route 04/09/25
.COMPLEX #30 tabs
atorvastatin 80 mg tablet 80 mg PO HS High Cholesterol 04/13/25
Vital Signs and Labs
-
Vital Signs and Labs:
Vital Signs
Temp Pulse Resp BP Pulse Ox
36.6 C 85 18 137/61 95
04/15/25 08:01 04/15/25 08:01 04/15/25 08:01 04/15/25 08:01 04/15/25 08:01
Lab Results
04/15/25 07:40
04/15/25 07:40
Sodium 137 mmol/L (135-145) 04/15/25 07:40
Potassium 4.3 mmol/L (3.5-5.1) 04/15/25 07:40
BUN 28 mg/dl (9-20) H 04/15/25 07:40
Glucose 108 mg/dl (70-99) H 04/15/25 07:40
Calcium 8.8 mg/dl (8.4-10.2) 04/15/25 07:40
Phosphorus 4.3 mg/dl (2.5-4.5) 04/15/25 07:40
Medications
-
Medications:
Generic Name Dose Route Start Last Admin
Trade Name Freq PRN Reason Stop Dose Admin
Acetaminophen 650 mg 04/15/25 15:30
Acetaminophen 650 Mg Rectal Suppository RECTAL 05/13/25 15:29
Q4HPRN PRN
mild pain or fever
Albuterol 2 puff 04/14/25 21:23
Albuterol Hfa [90 Mcg/Dose] Inhaler INH
R Q6HPRN PRN
sob
Protocol
Albuterol/Ipratropium 3 ml 04/15/25 09:35
Ipratropium 0.5/Albuterol 3 Mg (3 Ml Ampul) INH
R Q4HPRN PRN
SOB/wheezing
Protocol
Amiodarone HCl 200 mg 04/14/25 21:23 04/15/25 11:29
Amiodarone 200 Mg Tablet PO 05/12/25 21:22 Not Given
On Hold: 04/15/25 15:32 BID RAFAEL
Apixaban 2.5 mg 04/14/25 22:00 04/15/25 11:28
Apixaban (Eliquis) 2.5 Mg Tablet PO 05/12/25 21:59 Not Given
On Hold: 04/15/25 15:32 BID RAFAEL
Atorvastatin Calcium 80 mg 04/14/25 22:00 04/14/25 23:43
Atorvastatin (Lipitor) 80 Mg Tablet PO 05/12/25 21:59 80 mg
On Hold: 04/15/25 15:33 HS RAFAEL Administration
Bisacodyl 10 mg 04/14/25 21:23 04/15/25 15:16
Bisacodyl 10 Mg Rectal Suppository RECTAL 05/12/25 21:22 10 mg
DAILYPRN PRN Administration
if no bm x 3 days
Calcium Carbonate 1,000 mg 04/14/25 21:23 04/15/25 11:29
Calcium Carbonate 500 Mg Tablet PO 05/12/25 21:22 Not Given
On Hold: 04/15/25 15:33 BID RAFAEL
Cholecalciferol 50 mcg 04/14/25 21:23 04/15/25 11:29
Cholecalciferol (Vitamin D3) 50 Mcg Tablet (2,000 Units) PO 05/12/25 21:22 Not Given
On Hold: 04/15/25 15:32 BID RAFAEL
Dexamethasone Sodium Phosphate 4 mg 04/15/25 11:00 04/15/25 11:52
Dexamethasone 4 Mg/Ml 1 Ml Vial IV 05/13/25 10:59 4 mg
Q8H RAFAEL Administration
Furosemide 20 mg 04/15/25 08:00 04/15/25 11:28
Furosemide 20 Mg Tablet PO 05/13/25 07:59 Not Given
On Hold: 04/15/25 15:33 DAILY RAFAEL
Gabapentin 300 mg 04/14/25 22:00 04/14/25 23:42
Gabapentin 300 Mg Capsule PO 05/12/25 21:59 300 mg
On Hold: 04/15/25 15:33 HS RAFAEL Administration
Guaifenesin 1,200 mg 04/14/25 21:23 04/15/25 11:29
Guaifenesin 600 Mg Extended Release Tablet PO 05/12/25 21:22 Not Given
On Hold: 04/15/25 15:33 Q12 RAFAEL
Hydrocortisone 0 applic 04/15/25 08:00 04/15/25 08:39
Hydrocortisone 1% (Lotion) 120 Ml Bottle TOPICAL 05/13/25 07:59 1 applic
DAILY RAFAEL Administration
Piperacillin Sod/Tazobactam Sod 3.375 gram in 50 mls @ 100 mls/hr 04/15/25 10:00 04/15/25 16:25
Zosyn IV 50 mls
Q6H RAFAEL Administration
Sodium Chloride 1,000 mls @ 40 mls/hr 04/15/25 11:15 04/15/25 11:51
Nss IV 1,000 mls
.Q24H RAFAEL Administration
Ketorolac Tromethamine 15 mg 04/15/25 15:30
Ketorolac 15 Mg/Ml Injection IV 04/20/25 15:29
Q6HPRN PRN
mod pain
Latanoprost 0 drop 04/14/25 22:00 04/14/25 23:48
Latanoprost 0.005% (Ophthalmic Solution) 2.5 Ml Bottle BOTH EYES 05/12/25 21:59 1 drop
HS RAFAEL Administration
Lidocaine 0 applic 04/14/25 21:23
Lidocaine 4% Cream/Tegaderm Dressing 5 Gram Tube TOPICAL 05/12/25 21:22
Q4HPRN PRN
mild pain
Magnesium Hydroxide 30 ml 04/14/25 21:23
Milk Of Magnesia 30 Ml Cup PO 05/12/25 21:22
HSPRN PRN
if no bm by 2nd day
Midodrine 10 mg 04/15/25 08:00 04/15/25 12:11
Midodrine 5 Mg Tablet PO 05/13/25 07:59 Not Given
On Hold: 04/15/25 15:33 TID@0800,1300,1800 RAFAEL
Mirtazapine 15 mg 04/14/25 22:00 04/14/25 23:54
Mirtazapine 15 Mg Regular Release Tablet PO 05/12/25 21:59 15 mg
On Hold: 04/15/25 15:33 HS RAFAEL Administration
Oxycodone HCl 5 mg 04/14/25 21:23
Oxycodone 5 Mg Regular Release Tablet PO 04/28/25 21:22
Q6HPRN PRN
severe pain
Pantoprazole Sodium 40 mg 04/15/25 08:00 04/15/25 11:29
Pantoprazole 40 Mg Delayed Release Tablet PO 05/13/25 07:59 Not Given
On Hold: 04/15/25 15:34 DAILY RAFAEL
Pantoprazole Sodium 40 mg 04/15/25 16:00 04/15/25 16:25
Pantoprazole Sodium 40 Mg/10 Ml Vial IV 05/13/25 15:59 40 mg
DAILY RAFAEL Administration
Psyllium Hydrophilic Mucilloid 1 packet 04/15/25 08:00 04/15/25 11:29
Psyllium Packet PO 05/13/25 07:59 Not Given
DAILY RAFAEL
Senna/Docusate Sodium 2 tablet 04/14/25 21:23
Docusate W/Senna (Page-Colace) Tablet PO 05/12/25 21:22
BIDPRN PRN
constipation
Sodium Biphosphate/Sodium Phosphate 135 ml 04/14/25 21:23
Fleet Phosphate Enema (Adult) 135 Ml Bottle RECTAL 05/12/25 21:22
DAILYPRN PRN
IF NO BM X4 DAYS
Sodium Chloride 1 gram 04/14/25 23:00 04/15/25 11:29
Sodium Chloride 1 Gram Tablet PO 05/12/25 22:59 Not Given
On Hold: 04/15/25 15:34 BID RAFAEL
Sodium Chloride 0 flush 04/14/25 22:00
Sodium Chloride 0.9% (Flush) Syringe IV 05/12/25 21:59
PER PROTOCOL RAFAEL
Sodium Chloride 10 ml 04/15/25 16:00 04/15/25 16:25
Sodium Chloride 0.9% (Preservative Free) 10 Ml Vial IV 05/13/25 15:59 10 ml
DAILY RAFAEL Administration
Home Medications
-
Home Medications
bisacodyl 10 mg rectal suppository (Dulcolax (bisacodyl)) 10 mg AK DAILYPRN PRN if no bm x 3 days 05/14/24
gabapentin 300 mg capsule 300 mg PO HS Neurological Condition 11/18/24
psyllium 1 packet PO DAILY Constipation 11/18/24
sennosides 8.6 mg-docusate sodium 50 mg tablet (Senokot-S) 2 tab-cap PO BIDPRN PRN constipation 11/18/24
calcium carbonate 1,000 mg PO BID Supplement ##0 01/20/25
sodium phosphates 19 gram-7 gram/118 mL enema (Fleet Enema) 118 ml AK DAILYPRN PRN IF NO BM X4 DAYS 02/21/25
midodrine 5 mg tablet 10 mg (2 x 5 mg) PO TID@0800,1300,1800 Blood pressure #90 tabs 03/10/25
albuterol sulfate 90 mcg/actuation aerosol inhaler 2 puff inhalation R Q6HPRN PRN sob 04/05/25
cholecalciferol (vitamin D3) 50 mcg (2,000 unit) capsule (Vitamin D3) 50 mcg PO BID Supplement 04/05/25
collagenase clostridium histo. 250 unit/gram topical ointment (Santyl) 1 applic topical DAILY Wound care 04/05/25
fluticasone 113mcg-salmeterol 14mcg/actuation breath act,powder sensor (AirDuo Digihaler) 1 inh inhalation R BID Lung/Breathing Issues 04/05/25
hydrocortisone 1 % lotion 1 applic topical DAILY Itchy areas, rash 04/05/25
latanoprost 0.005 % eye drops 1 drp BOTH EYES HS Eye Condition 04/05/25
lidocaine 4 % topical cream 1 applic topical Q4HPRN PRN mild pain 04/05/25
magnesium hydroxide 400 mg/5 mL oral suspension (Milk of Magnesia) 2,400 mg PO HSPRN PRN if no bm by 2nd day 04/05/25
magnesium oxide 400 mg PO DAILY Supplement 04/05/25
mirtazapine 15 mg tablet (Remeron) 15 mg PO HS Mental Health/Anxiety 04/05/25
pantoprazole 40 mg tablet,delayed release (Protonix) 40 mg PO DAILY Gastrointestinal Issue 04/05/25
pembrolizumab 25 mg/mL intravenous solution (Keytruda) 200 mg IV Q21D Cancer 04/05/25
sodium chloride 1 gram tablet 1,000 mg PO BID Electrolyte Repletion 04/05/25
amiodarone 200 mg tablet 200 mg PO DAILY Arrhythmia #30 tabs 04/08/25
amiodarone 200 mg tablet (Pacerone) 200 mg PO BID Arrhythmia #60 tabs 04/08/25
apixaban 5 mg tablet (Eliquis) 2.5 mg (1/2 x 5 mg) PO BID Blood clot prevention/tx #60 tabs 04/08/25
furosemide 20 mg tablet 20 mg PO DAILY Heart Failure #30 tabs 04/08/25
acetaminophen 325 mg tablet 650 mg (2 x 325 mg) PO Q6H Shoulder pain #30 tabs 04/09/25
cefdinir 300 mg capsule 300 mg PO BID Pneumonia #14 caps 04/09/25
fentanyl 12 mcg/hr transdermal patch 1 patch transdermal Q72H severe pain #1 ea 04/09/25
fentanyl 25 mcg/hr transdermal patch 1 patch transdermal Q72H severe Pain #1 patch 04/09/25
guaifenesin 600 mg tablet, extended release 12 hr 1,200 mg (2 x 600 mg) PO Q12 #14 tabs 04/09/25
oxycodone 5 mg tablet 5 mg PO Q6HPRN PRN severe pain #3 tabs 04/09/25
prednisone 10 mg tablet See Rx Instructions .Route .COMPLEX #30 tabs 04/09/25
atorvastatin 80 mg tablet 80 mg PO HS High Cholesterol 04/13/25
[2025-04-15] MEDS: TORADOL 15 MG IV (19:25)
--- NOTE | 2025-04-15 20:01 | PTCARENOTE ---
Milk and molasses enema given, patient tolerated well.
[2025-04-15 20:23] LABS: Ammonia < 9 umol/L (9-30)
[2025-04-16] VITALS (18 sets, daily range): BP systolic 86–113; BP diastolic 42–91; PULSE 67–70; O2SAT 98–99; BMI 16.4
[2025-04-16] MEDS: XALATAN OPHTHALMIC SOLUTION 1 DROP BOTH EYES ×2 (03:13→21:06)
[2025-04-16] MEDS: DECADRON 4 MG IV ×2 (03:14→16:58)
[2025-04-16] MEDS: ZOSYN 50 IV ×4 (03:14→21:06)
[2025-04-16] MEDS: OFIRMEV 65 MG IV ×2 (03:15→14:09)
[2025-04-16 03:46] LABS: Hematocrit 31.5 % (39.0-52.0); Hemoglobin 10.3 g/dL (13.0-18.0); Mean Corp Hgb Conc. 32.7 g/dL (33.0-37.0); Mean Corpuscular Volume 87.0 fL (80.0-94.0); Platelet Count 260 10^3/uL (130-400); Red Cell Dist. Width 18.6 % (11.5-14.5)
[2025-04-16 04:04] LABS: Blood Urea Nitrogen 37 mg/dl (9-20); Calcium 8.6 mg/dl (8.4-10.2); Carbon Dioxide 31 mmol/L (22-30); Chloride 101 mmol/L (98-107); Estimated Creatinine Clearance 67 ml/min; Glucose 142 mg/dl (70-99); Magnesium 2.5 mg/dl (1.6-2.3); Potassium 5.1 mmol/L (3.5-5.1); Sodium 137 mmol/L (135-145); eGFR > 60.00
--- NOTE | 2025-04-16 07:43 | W.PN.NEURO.1 ---
Today's Communication / Plan
-
Await MRI of brain
supportive care
consider Ethics consult
Neuro Assessment/Plan
Assessment
I. Multifactorial encephalopathy (vascular, toxic)
II. Stage IV non-small cell lung carcinoma
III. Dysarthria with hypoxia
IV. Parkinsonism with Dementia
Plan
Await MRI of brain
supportive care
consider Ethics consult
Will follow peripherally.
Subjective/Objective
Subjective Data
Date of Service: April 16, 2025
Objective Data
Vital Signs
Temp Pulse Resp BP Pulse Ox
36.3 C 63 18 113/48 96
04/15/25 22:48 04/16/25 06:00 04/16/25 06:00 04/16/25 06:00 04/16/25 06:35
Lab Results
04/16/25 03:28
04/16/25 03:28
Sodium 137 mmol/L (135-145) 04/16/25 03:28
Potassium 5.1 mmol/L (3.5-5.1) 04/16/25 03:28
BUN 37 mg/dl (9-20) H 04/16/25 03:28
Glucose 142 mg/dl (70-99) H 04/16/25 03:28
Calcium 8.6 mg/dl (8.4-10.2) 04/16/25 03:28
Phosphorus 3.9 mg/dl (2.5-4.5) 04/16/25 03:28
Patient Allergies
acetaminophen Allergy (Verified 04/14/25 21:35)
LFT abnormalities
levetiracetam (From Keppra) Allergy (Verified 04/14/25 21:36)
Fatigue
pollen extracts Allergy (Verified 04/14/25 21:35)
HAYFEVER-Sneezing, watery/itchy eyes, stuffy nose
Data Reviewed
-
CT Head: Report Reviewed
Labs: Report Reviewed
Reviewed with: Physician and Patient
Old Records: Summarized
Past History
Past History
ED Past Medical History: Cancer (Stage 4 Lung), HTN and Other (Diverticulitis, PD, orthostatic hypotension)
ED Past Surgical History: Appendectomy, Orthopedic (Wrist surgery) and Tonsilectomy
Social History
Tobacco: Smoker
Alcohol: Occasional
Drug: None
Personal:
Living: with family
Employment: Employed
Family History
Family History: Other (Reviewed and noncontributory)
Medications
-
Medications:
Generic Name Dose Route Start Last Admin
Trade Name Freq PRN Reason Stop Dose Admin
Acetaminophen 650 mg 04/15/25 15:30
Acetaminophen 650 Mg Rectal Suppository RECTAL 05/13/25 15:29
Q4HPRN PRN
mild pain or fever
Albuterol 2 puff 04/14/25 21:23
Albuterol Hfa [90 Mcg/Dose] Inhaler INH
R Q6HPRN PRN
sob
Protocol
Albuterol/Ipratropium 3 ml 04/15/25 09:35
Ipratropium 0.5/Albuterol 3 Mg (3 Ml Ampul) INH
R Q4HPRN PRN
SOB/wheezing
Protocol
Amiodarone HCl 200 mg 04/14/25 21:23 04/15/25 11:29
Amiodarone 200 Mg Tablet PO 05/12/25 21:22 Not Given
On Hold: 04/15/25 15:32 BID RAFAEL
Apixaban 2.5 mg 04/14/25 22:00 04/15/25 11:28
Apixaban (Eliquis) 2.5 Mg Tablet PO 05/12/25 21:59 Not Given
On Hold: 04/15/25 15:32 BID RAFAEL
Atorvastatin Calcium 80 mg 04/14/25 22:00 04/14/25 23:43
Atorvastatin (Lipitor) 80 Mg Tablet PO 05/12/25 21:59 80 mg
On Hold: 04/15/25 15:33 HS RAFAEL Administration
Bisacodyl 10 mg 04/14/25 21:23 04/15/25 15:16
Bisacodyl 10 Mg Rectal Suppository RECTAL 05/12/25 21:22 10 mg
DAILYPRN PRN Administration
if no bm x 3 days
Calcium Carbonate 1,000 mg 04/14/25 21:23 04/15/25 11:29
Calcium Carbonate 500 Mg Tablet PO 05/12/25 21:22 Not Given
On Hold: 04/15/25 15:33 BID RAFAEL
Cholecalciferol 50 mcg 04/14/25 21:23 04/15/25 11:29
Cholecalciferol (Vitamin D3) 50 Mcg Tablet (2,000 Units) PO 05/12/25 21:22 Not Given
On Hold: 04/15/25 15:32 BID RAFAEL
Dexamethasone Sodium Phosphate 4 mg 04/15/25 11:00 04/16/25 03:14
Dexamethasone 4 Mg/Ml 1 Ml Vial IV 05/13/25 10:59 4 mg
Q8H RAFAEL Administration
Enoxaparin Sodium 40 mg 04/16/25 18:00
Enoxaparin Sodium 40 Mg/0.4 Ml Syringe SC 05/14/25 17:59
QPM RAFAEL
Furosemide 20 mg 04/15/25 08:00 04/15/25 11:28
Furosemide 20 Mg Tablet PO 05/13/25 07:59 Not Given
On Hold: 04/15/25 15:33 DAILY RAFAEL
Gabapentin 300 mg 04/14/25 22:00 04/14/25 23:42
Gabapentin 300 Mg Capsule PO 05/12/25 21:59 300 mg
On Hold: 04/15/25 15:33 HS RAFAEL Administration
Guaifenesin 1,200 mg 04/14/25 21:23 04/15/25 11:29
Guaifenesin 600 Mg Extended Release Tablet PO 05/12/25 21:22 Not Given
On Hold: 04/15/25 15:33 Q12 RAFAEL
Hydrocortisone 0 applic 04/15/25 08:00 04/15/25 08:39
Hydrocortisone 1% (Lotion) 120 Ml Bottle TOPICAL 05/13/25 07:59 1 applic
DAILY RAFAEL Administration
Piperacillin Sod/Tazobactam Sod 3.375 gram in 50 mls @ 100 mls/hr 04/15/25 10:00 04/16/25 03:14
Zosyn IV 50 mls
Q6H RAFAEL Administration
Sodium Chloride 1,000 mls @ 40 mls/hr 04/15/25 11:15 04/15/25 11:51
Nss IV 1,000 mls
.Q24H RAFAEL Administration
Acetaminophen 650 mg/ Device 65 mls @ 260 mls/hr 04/15/25 21:00 04/16/25 03:15
IV 04/16/25 20:59 65 mls
Q6HPRN PRN Administration
mild pain
Protocol
Ketorolac Tromethamine 15 mg 04/15/25 15:30 04/15/25 19:25
Ketorolac 15 Mg/Ml Injection IV 04/20/25 15:29 15 mg
Q6HPRN PRN Administration
mod pain
Latanoprost 0 drop 04/14/25 22:00 04/16/25 03:13
Latanoprost 0.005% (Ophthalmic Solution) 2.5 Ml Bottle BOTH EYES 05/12/25 21:59 1 drop
HS RAFAEL Administration
Lidocaine 0 applic 04/14/25 21:23
Lidocaine 4% Cream/Tegaderm Dressing 5 Gram Tube TOPICAL 05/12/25 21:22
Q4HPRN PRN
mild pain
Magnesium Hydroxide 30 ml 04/14/25 21:23
Milk Of Magnesia 30 Ml Cup PO 05/12/25 21:22
HSPRN PRN
if no bm by 2nd day
Midodrine 10 mg 04/15/25 08:00 04/15/25 12:11
Midodrine 5 Mg Tablet PO 05/13/25 07:59 Not Given
On Hold: 04/15/25 15:33 TID@0800,1300,1800 RAFAEL
Mirtazapine 15 mg 04/14/25 22:00 04/14/25 23:54
Mirtazapine 15 Mg Regular Release Tablet PO 05/12/25 21:59 15 mg
On Hold: 04/15/25 15:33 HS RAFAEL Administration
Oxycodone HCl 5 mg 04/14/25 21:23
Oxycodone 5 Mg Regular Release Tablet PO 04/28/25 21:22
Q6HPRN PRN
severe pain
Pantoprazole Sodium 40 mg 04/15/25 08:00 04/15/25 11:29
Pantoprazole 40 Mg Delayed Release Tablet PO 05/13/25 07:59 Not Given
On Hold: 04/15/25 15:34 DAILY RAFAEL
Pantoprazole Sodium 40 mg 04/15/25 16:00 04/15/25 16:25
Pantoprazole Sodium 40 Mg/10 Ml Vial IV 05/13/25 15:59 40 mg
DAILY RAFAEL Administration
Psyllium Hydrophilic Mucilloid 1 packet 04/15/25 08:00 04/15/25 11:29
Psyllium Packet PO 05/13/25 07:59 Not Given
DAILY RAFAEL
Senna/Docusate Sodium 2 tablet 04/14/25 21:23
Docusate W/Senna (Page-Colace) Tablet PO 05/12/25 21:22
BIDPRN PRN
constipation
Sodium Biphosphate/Sodium Phosphate 135 ml 04/14/25 21:23
Fleet Phosphate Enema (Adult) 135 Ml Bottle RECTAL 05/12/25 21:22
DAILYPRN PRN
IF NO BM X4 DAYS
Sodium Chloride 1 gram 04/14/25 23:00 04/15/25 11:29
Sodium Chloride 1 Gram Tablet PO 05/12/25 22:59 Not Given
On Hold: 04/15/25 15:34 BID RAFAEL
Sodium Chloride 0 flush 04/14/25 22:00
Sodium Chloride 0.9% (Flush) Syringe IV 05/12/25 21:59
PER PROTOCOL RAFAEL
Sodium Chloride 10 ml 04/15/25 16:00 04/15/25 16:25
Sodium Chloride 0.9% (Preservative Free) 10 Ml Vial IV 05/13/25 15:59 10 ml
DAILY RAFAEL Administration
--- NOTE | 2025-04-16 08:27 | W.PN.ONC2 ---
Today's Communication / Plan
-
f/u MRI brain
VSE recommended by speech therapy
Due for OP restaging and follow up with Dr. Berger
Impression
Impression
Acute hypoxemic respiratory failure
COPD/hypoxemia possibly heart failure.
Stage IV NSCLC/RUL lesion s/p XRT in 2019 now on Keytruda. Widespread osseous metastatic disease, retroperitoneum and bilateral pulmonary nodules. most recent PET with a positive response to treatment.
chronic cancer pain on narcotics
Chronic HFpEF
Atrial fibrillation
Orthostatic hypotension
Dysphagia
Parkinson
Dementia
Plan
Plan
continue GOC
If goals remain restorative, will need to recover from hospitalization and improve performance status to resume keytruda
Subjective/Objective
Subjective
awake, alert, confused, poor historian
productive cough
aspiration
Vital Signs:
Vital Signs
Temp Pulse Resp BP Pulse Ox
97.3 F 63 18 113/48 96
04/15/25 22:48 04/16/25 06:00 04/16/25 06:00 04/16/25 06:00 04/16/25 06:35
Lab Results:
Laboratory Data
WBC 21.4 10^3/uL (4.8-10.8) H 04/16/25 03:28
Hgb 10.3 g/dL (13.0-18.0) L 04/16/25 03:28
Plt Count 260 10^3/uL (130-400) D 04/16/25 03:28
eGFR > 60.00 04/16/25 03:28
Physical Exam
nguyen dark yellow urine
HEENT: Moist Mucous Membranes; No Jaundice
Pulmonary: Rhonchi (scattered)
GI: Soft and Other (thin)
Extremities: Pulses Present; No Edema
--- NOTE | 2025-04-16 08:45 | PTOTSP ---
Speech Language Pathology
Pt seen for dysphagia tx. Pt awake and alert upon arrival. Confused conversation noted at times. Pt set up to brush teeth, and he was able to do this independently. With sip of liquid for swish/spit, wet coughing noted. Trialed ice chip with
same wet cough. Provided sips of water via cup and tsp amounts of puree. Pt tolerated first few bites/sips without overt difficulty. When given sip of liquid to aid in clearing oral cavity, and pt swished this in oral cavity prior to swallowing,
prolonged wet immediate coughing episode noted with expectoration of mucous for approximately 5 minutes. Set up suction in room to aid in clearing mucous. Unsure if related to aspiration, and if so, prandial vs from esophagus.
Recommend:
(1) NPO
(2) VSE
(3) Non-oral meds
(4) Hold on Aspiration Risk Hydration Protocol (ARHP) until VSE completed, as this will be completed shortly
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
--- NOTE | 2025-04-16 09:26 | W.PN.HOSP.TC ---
Today's Communication/Plan
-
see bold
Assessment / Plan
Assessment / Plan
HPI: 79-year-old male past medical history of stage IV non-small cell lung cancer with widespread osseous metastatic disease on 4 L after recent treatment for pneumonia, chronic HFpEF, atrial fibrillation, hypertension, hyperlipidemia, COPD, BPH,
SIADH, presenting with dysphagia. He had dysphagia a year ago was cleared to have regular diet and medications. �He saw ENT who trialed PPI at that time without improvement. Patient recently admitted for pneumonia treated and discharged to [facility] on 4 L oxygen. �Patient came back to the emergency room yesterday was replaced to [facility]. �[facility] sent in for dysphagia. �Family is concerned that there medication was not accurate. �Patient states he has no problems swallowing tolerate
regular diet and medications.
#Acute on chronic hypoxic respiratory failure
Patient currently requiring 4 L of oxygen, down from 10 L of oxygen, he was recently discharged on 4 L
Suspect likely due to stage IV lung cancer and pneumonia, treat as below
#Sepsis, present upon admission, from aspiration pneumonia
#History of COPD
Patient still on cefdinir, now changed to IV Zosyn
Appreciate pulmonology input, unable to use CPAP or BiPAP due to lack of cough effort
Prednisone changed to IV steroids
Continue supportive care, continue bronchodilators
#Altered mental status
Head CT negative, TSH 4.98. Pulmonology recommends discontinuation of fentanyl patch and sedating medications
Appreciate neurology input, suspect vascular and toxic metabolic encephalopathy, follow-up brain MRI
#Stage IV metastatic lung cancer
#Widespread osseous metastatic disease
Follows with Dr. Sandoval
Appreciate oncology input, patient appears to be actively dying with life expectancy of hours�days
Oncology, pulmonology, and myself have spoken with the family and relayed that patient is actively dying
Family wishes to continue workup and treatment, as they said hospice 'would not be his wishes'
#Dysphagia
Speech recommends strict n.p.o., patient continues to cough and choke with VSE
Asked GI to place Dobbhoff tube
#Severe constipation
Had a bowel movement status post enema
Start laxatives when able
#Orthostatic hypotension
Resume midodrine when able
#Chronic HFpEF
Hold lasix
#Paroxysmal atrial fibrillation with rapid ventricular response
Resume amiodarone & eliquis when able
IV metoprolol as blood pressure allows, consult cardiology
#Hx of SIADH
Resume sodium chloride tablets when able
#Stage 2 sacral pressure injury and left buttock DTI pressure injury POA
Wound care
#Severe protein calorie malnutrition
DVT prophylaxis�subcu Lovenox while unable to take Eliquis
DNR
Updated son and 04/16
Total time spent to see the patient on the floor, examine the patient, review data and lab results, discuss treatment plan with patient, nursing staff around 54 minutes.
Physical Exam
General: Appears chronically ill
HEENT: Normocephalic, Atraumatic, EOMI, MMM
Respiratory: Coarse breath sounds diffusely
Cardiac: Normal S1/S2, Regular Rate and Rhythm
GI: Soft, Nontender, Nondistended, Normal Bowel Sounds
Extremities: No Clubbing, Cyanosis, or Edema
Neuro: Oriented to person and place, but not time. Answering questions, following commands
Anticipated Discharge: > 48 hours
Subjective/Interval History
-
Date of Service: April 15, 2025
Patient alert, awake today. He is talking and answering questions. He continues to choke when given trials of liquids and food with speech pathology. He reports coughing, denies chest pain, denies shortness of breath. No fever, no vomiting.
Objective Data
-
Labs:
Laboratory Results
04/15/25 04/15/25
07:40 10:39
WBC 16.5 H
Hgb 11.6 L
Hct 37.4 L
Plt Count 357 D
HCO3 31.9 H
Sodium 137
Potassium 4.3
Chloride 99
Carbon Dioxide 34 H
BUN 28 H
Creatinine 0.5 L
Glucose 108 H
Calcium 8.8
Vital Signs:
Vital Signs
Temp Pulse Resp BP Pulse Ox
97.8 F 85 18 137/61 95
04/15/25 08:01 04/15/25 08:01 04/15/25 08:01 04/15/25 08:01 04/15/25 08:01
[2025-04-16] MEDS: HYDROCORTISONE 1% LOTION 1 APPLIC TOPICAL (09:56)
[2025-04-16] MEDS: NSS (PRESERVATIVE FREE) 10 ML IV (09:57)
[2025-04-16] MEDS: PROTONIX IV 40 MG IV (09:58)
--- NOTE | 2025-04-16 10:18 | W.PN.PUL3 ---
Today's Communication / Plan
-
Cont. ABX
Follow cultures
decreased IV steroids
avoid sedatives for now. Hopefully can restart fentanyl a lower dose in the next 24 hours.
Nocturnal CPAP if mental status allows.
Wean FiO2- improved requirement.
IS if able.
For modified barium swallow
MRI pending.
Assessment
-
79-year-old man with widely metastatic lung cancer, malnutrition, recent admission to the hospital for pneumonia on oral antibiotics. Discharged to rehab, came to the emergency room few days later for failure to thrive, dysphagia, debilitation.
Sent back to [facility]. Readmitted to [facility] for dysphagia. Overnight patient developed change in mental status-this morning obtunded, more hypoxemic up to 10 L nasal cannula. Not responsive. I was emergently consulted on 04/15/2025 for
evaluation.
Patient is critically ill
Acute hypoxemic respiratory failure currently on 10 L nasal cannula
Suspected acute hypercapnic respiratory failure/hypoventilation
With leukocytosis and abnormal chest x-ray: Cannot rule out aspiration event.
Suspect sepsis component-patient unable to mount a response due to severe protein caloric malnutrition
Rule out other source of infection
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
Conditions present prior admission:
Discharged from [facility] 04/10/2025 after evaluation for exacerbation of COPD/hypoxemia possibly heart failure.
Stage IV NSCLC/right upper lung lung lesion: Status post XRT in 2019.
Now on Keytruda. Widespread osseous metastatic disease, retroperitoneum and bilateral pulmonary nodules
Initially diagnosed in 2019
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
Chronic HFpEF
Atrial fibrillation
Orthostatic hypotension
Dysphagia
Hypertension
Hyperlipidemia
BPH
Obstructive sleep apnea, severe
Central apnea
Hernia repair
Bilateral cataract surgery
Former smoker
Right shoulder pain status post ORIF
Malnutrition
Depression
Glaucoma
-
Assessment and plan:
Abrupt onset change in mental status and worsening hypoxemia.
Improved oxygen requirements 04/16/2025 - suspect had some degree of hypoventilation form his poor mental status - currently down to 4L NC.
Improved status-now awake and following commands. Has a cough effort.
-
Differential diagnosis is broad.
Including sepsis component and inability to mount a response in this patient that it is significant now large and debilitated due to metastatic lung cancer currently on Keytruda.
Chest x-ray: Bilateral infiltrates similar to before.
Leukocytosis worse today, may be steroid effect - cont. to follow.
Remains afebrile but pt immunosuppressed.
-
Agree with broad-spectrum antibiotics for now
Cant rule out aspiration PNA.
CXR 04/15/2025:Moderate elevation right hemidiaphragm, stable. Colon is present underneath the right hemidiaphragm, also stable.
Oblique band of increased density in the right midlung, similar appearance to recent CT examination, and probably posttreatment change from previous neoplasia. There is patchy parenchymal opacity within the medial right lower lung, which is also
stable from recent examinations, and is most likely atelectasis, similar appearance to recent exams.
There is also patchy parenchymal opacity within the left lower lung, with main differential considerations of atelectasis and/or pneumonia. Compared to most recent radiograph, probably slight improvement in atelectatic change in the medial left
lower lung.
-
Sputum culture- michelle - contaminant likely
Blood culture negative
UA with bacterial and few WBC - Urine culture pending.
-
ABG with compensated chronic hypercapnic resp. failure.
Cont. CAPAP HS -- he uses AVAP at home.
avoid sedatives until more awake.
Fenatnyl patch DCd for now-can restart in the next 24 to 48 hours, would do so at a lower dose.
NPO and gabapentin on hold as well.
-
Patient is DNR status
-
TSH-- slightly abnormal.
Will decrease IV steroids today, cont. to taper -- possibility of relatively adrenal insufficiency and also treat residual COPD exacerbation which is not severe.
Electrolyte where balanced.
-
History of dysphagia: Patient is malnourished.
If survives/improve may need further swallowing evaluation.
N.p.o. for now
Head of the bed elevation
For modified barium swallow today 04/16/2025
-
proBNP was elevated before-no evidence for volume overload on my exam.
No indications for IV diuresis.
-
Improve mental status: Suspect combination of hypoactive delirium on underlying Parkinson/dementia, medication effect (gabapentin/fentanyl etc.)
Cannot rule out SR. 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
Discussed with family as well-unlikely to change room attendant.
CT head no acute abnormalities.
neurology correspondance reviewed - MRI ordered.
-
Hold inhalers-unable to perform due to obtundation
Nebulizers 3 times a day
IV steroids as above
-
DVT prophylaxis patient on anticoagulation-if unable to get a Dobbhoff tube or take orals may need to transition to heparin drip.
-
-
Dr. Norman had extensive discussion with family over the phone and in person on 04/15/2025-they understand critical situation. Supportive care for now.
Poor prognosis.
-
Subjective Data
-
Date of Service:
Date of Service: April 16, 2025
Chief Complaint: Pulmonary Follow Up (Hypoxemic respiratory failure)
Subjective:
Patient more alert
Report dry mouth
Following commands
Denies any abdominal pain
No nausea or vomiting.
Review of Systems
Cardiopulmonary: Dyspnea, Dyspnea on Exertion and Cough
Objective Data
Data Reviewed
Vital Signs / I&O / Oxygen:
Vital Signs
Temp Pulse Resp BP Pulse Ox
97.3 F 63 18 113/48 96
04/15/25 22:48 04/16/25 06:00 04/16/25 06:00 04/16/25 06:00 04/16/25 06:35
Intake and Output
04/15/25 04/16/25 04/17/25
06:59 06:59 06:59
Intake Total 645 / 645
Output Total 400 / 400
Balance 245 / 245
SaO2 96
Nasal Cannula flow liters per 4
minute
Physical Exam
General: Other (Cachectic) and Other (Alert, following commands.)
HEENT: Normocephalic
Cardiovascular: S1-S2
Respiratory: Clear
GI: Soft and Non Distended
Neurology: Awake, Alert, No Motor Deficits and Other (Following commands.)
Labs/Micro/Reports
Lab Data
04/16/25 03:28
04/16/25 03:28
Laboratory Results
04/15/25
10:39
pH 7.38
pCO2 54 H
pO2 85
HCO3 31.9 H
O2 Delivery Level
Microbiology
04/15/25 05:58 Nose MRSA Screen - Final
No Methicillin Resistant Staphylococcus aureus isolated.
--- NOTE | 2025-04-16 11:00 | PTOTSP ---
Speech Language Pathology
VIDEOFLUOROSCOPIC SWALLOW EXAMINATION (VSE) completed. Pt with mild oral and profound pharyngeal dysphagia with significant aspiration of thin and mildly thick liquids. Suspected airway obstruction noted post mildly thick liquids with no airflow
for 5 seconds, which pt was able to clear. Swallow function significantly worse than VSE completed in January 2024. Prognosis for short-term and long-term improvement guarded.
Recommend:
(1) Strict NPO
(2) Oral care 4x/day with suctioning as needed
(3) Non-oral meds
(4) Not appropriate for Aspiration Risk Hydration Protocol (ARHP) at this time
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
--- NOTE | 2025-04-16 12:48 | CON.CAR ---
Addendum entered and electronically signed by Jalil Manuel MD 04/16/25 15:33:
I saw and examined the patient.
The Patient Relations Coordinator's note was reviewed and I agree with the note.
Comment: Briefly, 79-year-old male past medical history of widely metastatic non-small cell lung cancer on immuno therapy, heart failure preserved ejection fraction, atrial fibrillation and orthostatic hypotension who presented for evaluation of
dysphagia. With ongoing swallowing dysfunction he had NG tube placed earlier this afternoon around the time my evaluation. Cardiology is consulted for atrial fibrillation.
Rates have been rapid at times in atrial fibrillation and he has been treated with as needed IV metoprolol
Unfortunately blood pressure is marginal which makes use of beta-radha or calcium channel radha challenging
Would opt to resume home oral amiodarone via NG tube for rate control
Resume midodrine
Restart home Eliquis for risk reduction cardioembolic stroke
Rest per Meliza Jarquin
Original Note:
Consultation
Consultation Request
Date/Time Consultation Performed: 04/16/25
Requesting Provider: Dr. Jesus Lopez
Performing Provider: Meliza Jarquin PA-C for Dr. Manuel
Reason for Consultation: afib
Medical History
-
Chief Complaint: dysphagia
History of Present Illness:
Patient is a 79-year-old gentleman with Metastatic non-small cell lung cancer on Keytruda /Xgeva, History of SVC syndrome, heart failure with preserved ejection fraction, orthostatic hypotension with syncope, TASIA on CPAP, COPD, SIADH/Chronic
hyponatremia, paroxysmal atrial fibrillation, hyperlipidemia, and COPD. He was recently hospitalized at [facility] from March 04-2024 for syncope, symptomatic orthostatic hypotension, generalized weakness and anorexia. During this
hospitalization midodrine was uptitrated to 10 mg 3 times daily and Toprol was held. He was discharged to SNF however then presented back due to cough and hypoxia, diagnosed with PNA. In setting of PNA was noted to have rapid afib as well as
component of acute CHF. He was started on amiodarone and his eliquis dose was reduced to 2.5mg BID given overall frailty. He was then discharged to rehab at [facility], ER visit 04/13 for FTT and transferred to [facility], and now presents back due
to difficulty swallowing. Cardiology consulted for evaluation of afib in setting of NPO status. Denies palpitations.
PMH:
Admission to [facility] 03/2025 for PNA
Chronic HFpEF
Known paroxysmal atrial fibrillation
Chronic OAC with Eliquis
Orthostatic hypotension
Widely metastatic NSCLC on keytruda
COPD/emphysema
SVC syndrome, currently receiving radiation�improvement after radiation of upper extremity edema
Thyroid nodules
BPH
Tobacco abuse
Thoracic aortic aneurysm 4.[address] in [address] on [address] of chest
Diverticulitis with diverticular abscess with colon resection
Chronic neck and back pain
Former alcoholic
DNR code status
Past Medical History
Past Medical History: Arrhythmias and Cancer
Social History
Tobacco: Former Smoker
Alcohol: None
Drug: None
Personal:
Living: With Family (normally, at [facility] after last admission)
Employment: Retired
Family History
Family History: Reviewed & Not Pertinent
Allergies / Home Medications
Allergy/AdvReac Type Severity Reaction Status Date / Time
acetaminophen Allergy LFT Verified 04/14/25 21:35
abnormalities
levetiracetam (From Kera) Allergy Fatigue Verified 04/14/25 21:36
pollen extracts Allergy HAYFEVER-Sneezing, Verified 04/14/25 21:35
watery/itchy
eyes,
stuffy nose
�Medication �Instructions �Recorded �Confirmed �Type
bisacodyl 10 mg rectal suppository 10 mg LA DAILYPRN PRN if no bm x 3 05/14/24 04/14/25 History
(Dulcolax (bisacodyl)) days
gabapentin 300 mg capsule 300 mg PO HS Neurological Condition 11/18/24 04/14/25 History
psyllium 1 packet PO DAILY Constipation 11/18/24 04/14/25 History
sennosides 8.6 mg-docusate sodium 2 tab-cap PO BIDPRN PRN 11/18/24 04/14/25 History
50 mg tablet (Senokot-S) constipation
calcium carbonate 1,000 mg PO BID Supplement ##0 01/20/25 04/14/25 History
sodium phosphates 19 gram-7 118 ml LA DAILYPRN PRN IF NO BM X4 02/21/25 04/14/25 History
gram/118 mL enema (Fleet Enema) DAYS
midodrine 5 mg tablet 10 mg (2 x 5 mg) PO 03/10/25 04/14/25 Rx
TID@0800,1300,1800 Blood pressure
#90 tabs
albuterol sulfate 90 mcg/actuation 2 puff inhalation R Q6HPRN PRN sob 04/05/25 04/14/25 History
aerosol inhaler
cholecalciferol (vitamin D3) 50 50 mcg PO BID Supplement 04/05/25 04/14/25 History
mcg (2,000 unit) capsule (Vitamin
D3)
collagenase clostridium histo. 250 1 applic topical DAILY Wound care 04/05/25 04/14/25 History
unit/gram topical ointment (Santyl)
fluticasone 113mcg-salmeterol 1 inh inhalation R BID 04/05/25 04/14/25 History
14mcg/actuation breath act,powder Lung/Breathing Issues
sensor (AirDuo Digihaler)
hydrocortisone 1 % lotion 1 applic topical DAILY Itchy 04/05/25 04/14/25 History
areas, rash
latanoprost 0.005 % eye drops 1 drp BOTH EYES HS Eye Condition 04/05/25 04/14/25 History
lidocaine 4 % topical cream 1 applic topical Q4HPRN PRN mild 04/05/25 04/14/25 History
pain
magnesium hydroxide 400 mg/5 mL 2,400 mg PO HSPRN PRN if no bm by 04/05/25 04/14/25 History
oral suspension (Milk of Magnesia) 2nd day
magnesium oxide 400 mg PO DAILY Supplement 04/05/25 04/14/25 History
mirtazapine 15 mg tablet (Remeron) 15 mg PO HS Mental Health/Anxiety 04/05/25 04/14/25 History
pantoprazole 40 mg tablet,delayed 40 mg PO DAILY Gastrointestinal 04/05/25 04/14/25 History
release (Protonix) Issue
pembrolizumab 25 mg/mL intravenous 200 mg IV Q21D Cancer 04/05/25 04/14/25 History
solution (Keytruda)
sodium chloride 1 gram tablet 1,000 mg PO BID Electrolyte 04/05/25 04/14/25 History
Repletion
amiodarone 200 mg tablet 200 mg PO DAILY Arrhythmia #30 tabs 04/08/25 04/14/25 Rx
amiodarone 200 mg tablet (Pacerone) 200 mg PO BID Arrhythmia #60 tabs 04/08/25 04/14/25 Rx
apixaban 5 mg tablet (Eliquis) 2.5 mg (1/2 x 5 mg) PO BID Blood 04/08/25 04/14/25 Rx
clot prevention/tx #60 tabs
furosemide 20 mg tablet 20 mg PO DAILY Heart Failure #30 04/08/25 04/14/25 Rx
tabs
acetaminophen 325 mg tablet 650 mg (2 x 325 mg) PO Q6H 04/09/25 04/14/25 Rx
Shoulder pain #30 tabs
cefdinir 300 mg capsule 300 mg PO BID Pneumonia #14 caps 04/09/25 04/14/25 Rx
fentanyl 12 mcg/hr transdermal 1 patch transdermal Q72H severe 04/09/25 04/14/25 Rx
patch pain #1 ea
fentanyl 25 mcg/hr transdermal 1 patch transdermal Q72H severe 04/09/25 04/14/25 Rx
patch Pain #1 patch
guaifenesin 600 mg tablet, 1,200 mg (2 x 600 mg) PO Q12 #14 04/09/25 04/14/25 Rx
extended release 12 hr tabs
oxycodone 5 mg tablet 5 mg PO Q6HPRN PRN severe pain #3 04/09/25 04/14/25 Rx
tabs
prednisone 10 mg tablet See Rx Instructions .Route 04/09/25 04/14/25 Rx
.COMPLEX #30 tabs
atorvastatin 80 mg tablet 80 mg PO HS High Cholesterol 04/13/25 04/14/25 History
Review of Systems
-
History Source: Patient and Family
All other systems: Negative unless noted
Physical Exam
Vital Signs
Temp Pulse Resp BP Pulse Ox
97.7 F 110 17 111/91 97
04/16/25 12:35 04/16/25 12:00 04/16/25 12:00 04/16/25 12:00 04/16/25 08:00
Lab Results
04/16/25 03:28
04/16/25 03:28
Physical Exam
General: No Apparent Distress, Comfortable and Other (on supp O2. cachectic )
HEENT: Normocephalic, Anicteric and Moist Mucous Membranes
Respiratory: Rhonchi and Non Labored Respirations
Cardiac: S1/S2 and Irregular Rhythm
GI: Soft, Non Tender, Non Distended and Normal Bowel Sounds
Musculoskeletal: No Clubbing, No Cyanosis and No Edema
Skin: Warm and Dry
Neuro: AO x 3
Impression / Plan
-
Primary Rotating Field Assembler: Dr. Dempsey
Assessment:
Dysphagia s/p DHT placement 04/16/25
PNA, concern for aspiration
Admission to [facility] 02/2025 for syncope, orthostasis and 03/2025 for PNA, CHF, afib
Chronic HFpEF
Known paroxysmal atrial fibrillation
Chronic OAC with Eliquis
Orthostatic hypotension
Widely metastatic NSCLC on keytruda
COPD/emphysema
SVC syndrome, currently receiving radiation�improvement after radiation of upper extremity edema
Thyroid nodules
BPH
Tobacco abuse
Thoracic aortic aneurysm 4.[address] in [address] on [address] of chest
Diverticulitis with diverticular abscess with colon resection
Chronic neck and back pain
Former alcoholic
DNR code status
ECHO 11/18/24: EF 55-60%, normal RWM, mild TR, trivial pericardial effusion, dilated aortic root
ECHO 02/23/2025: LV ejection fraction 55 to 60%. No regional wall motion abnormality. Normal RV size and systolic function. Trace mitral regurgitation. Trileaflet mildly sclerotic aortic valve with trace aortic regurgitation. Mild tricuspid
regurgitation. Estimated pulmonary artery pressure 29 mmHg assuming a right atrial pressure 3 mmHg. Trivial pericardial effusion. Mildly dilated aortic root: 4.1 cm at sinus of Valsalva. Mildly dilated proximal ascending aorta, 4.1 cm.
Plan:
- Patient presents with dysphagia. was NPO. went into afib around 10AM today. After I had initially evaluated patient, GI placed Dobbhoff tube, so now able to resume OP meds
- Plan to resume p.o. amiodarone 200 mg twice daily as well as Eliquis 2.5 mg twice daily
- Continue IV Lopressor 5 mg every 6 hours with hold parameters in place
- He is asymptomatic with his atrial fibrillation.
- last echo from 02/2025 with results as above, will not repeat at this time
- Continue speech therapy, aspiration precautions, abx
- He is DNR. Prognosis appears poor.
- Discussed with nursing. Discussed with patient and family at bedside
Data Reviewed
-
EKG: Tracing Personally Visualized and interpreted
Medical Tests (Nuc Med, Echo etc): Report Reviewed by me
Labs: Labs Reviewed by me
Old Records: Reviewed
--- NOTE | 2025-04-16 12:53 | PN.CDI ---
CDI
- -
CDI:
Physician Documentation Request
Admit Date: 04/15/25 11:13
Dear Doctor Do,
Please review the following and provide your response in the progress notes.
Clinical Indicators:
Pt admitted with acute on chronic hypoxic respiratory failure, Suspect likely due to stage IV lung cancer and pneumonia.
04/14 RN documented in wound panel, stage 2 sacral pressure injury and left buttock DTI pressure injury POA.
Physician documentation of the type and location of wounds is required for compliant documentation. Based on the above clinical findings and your assessment, please provide the following in your progress note:
1. Location of the ulcer/wound, including laterality.
2. Type (etiology) of ulcer/wound:
Stage 2 sacral and left buttock DTI pressure injury POA
Sacral and Left buttock non-pressure injury POA
Other
Use of terms such as suspected, likely, concern for, or probable (associated with a specific diagnosis that is being evaluated, monitored, or treated as if it exists) are acceptable and can be coded in the inpatient setting, when documented at the
time of discharge.
Thank you,
Nathaly Gomez RN, BSN
CDI Specialist
[place] [facility]
Please use your independent medical judgment in providing your response.
*Source: National Pressure Ulcer Advisory Panel (NPUAP)
--- NOTE | 2025-04-16 13:06 | PN.CDI ---
CDI
- -
CDI:
Physician Documentation Request
Admit Date: 04/15/25 11:13
Dear Doctor Do ,
Please review the following and provide your response in the progress notes.
Clinical Indicators:
Pt admitted with acute on chronic hypoxic respiratory failure, Suspect likely due to stage IV lung cancer and pneumonia.
Documentation in the record on 04/15/25 includes the diagnosis of Sepsis. The following clinical information was noted in the record:
04/15 Pulmonary: 'With leukocytosis and abnormal chest x-ray: Cannot rule out aspiration event.
Suspect sepsis component-patient unable to mount a response due to severe protein caloric malnutrition
Rule out other source of infection'
Selected Entries
04/15/25
12:00 04/15/25
15:00 04/15/25
17:00
Pulse 108 101
Resp Rate 26
04/15/25
20:00 04/15/25
22:20 04/16/25
12:00
Pulse 110
Resp Rate 26 28
Laboratory Tests
04/14/25 04/15/25 04/16/25
16:52 07:40 03:28
WBC 14.4 H 16.5 H 21.4 H
Recognized standard criteria for this condition and other associated definitions:
�Sepsis
-Systemic manifestations of infection, with 2 or more SIRS criteria which include:
-Fever > 100.9��F or hypothermia < 96.8��F
-Leukocytosis WBC > 12,000 or leukopenia, WBC < 4,000, or > 10% bands
-Tachycardia- > 90 beats/minute
-Tachypnea- RR > 20 breaths/minute or PaCO2 < 32mmHg
Source: Merck Manual 2013
-Documentation should include the known or suspected organism, and the underlying infection, such as UTI or pneumonia
Based on the above information and the recognized standard SIRS criteria, please clarify if sepsis is still an accurate diagnosis, and reflective of the patient�s condition, to ensure quality of the medical record.
Please clarify in the Progress Notes:
�Sepsis is/was present and is a clinical diagnosis
�After study sepsis has been ruled out
�Other
Use of terms such as suspected, likely, concern for, or probable (associated with a specific diagnosis that is being evaluated, monitored, or treated as if it exists) are acceptable and can be coded in the inpatient setting, when documented at the
time of discharge.
Thank you,
Nathaly Gomez RN, BSN
CDI Specialist
[place] [facility]
Please use your independent medical judgment in providing your response.
--- NOTE | 2025-04-16 13:41 | W.PN.UPDATE ---
Addendum entered and electronically signed by ALFREDITO Harmon 04/16/25 16:52:
NGT more distally in stomach in proximal stomach on repeat X ray ok to use for meds and feeds
Addendum entered and electronically signed by ALFREDITO Harmon 04/16/25 15:21:
DHT with tip at GE junction and reversing up. Repositioned with Dr. Lopez. now at 65cm left nare. Will repeat X ray. Family updated.
04/16/25 Abd X ray
The radiopaque tip of the Dobbhoff tube reverses course just above the gastroesophageal junction. Repositioning is suggested.
Original Note:
Update Note
Progress Note Update
asked by Dr. Lopez to see patient for DHT placement. Pt and family agreeable. DHT placed left nare at 55 cm without difficulty and pt tolerated procedure well. Will check X ray to confirm placement.
[2025-04-16] MEDS: NSS 1000 IV (14:06)
[2025-04-16] MEDS: LOPRESSOR IV (14:29)
[2025-04-16] MEDS: LOPRESSOR 5 MG IV (18:29)
--- NOTE | 2025-04-16 18:45 | PTCARENOTE ---
Patient AAOx1-2 today, confused. Harsh moist productive cough, patient using yankauer. Tolerating 4L NC. Patient initially NSR/NSB with PACs but then converted into afib while at video swallow, aware, see mar. BPs soft. Dobhoff placed in left
nare by GI team. Tube feedings started per orders. Patient making needs known, family at bedside, educated all on aspiration and care plan. Will continue to closely monitor.
--- NOTE | 2025-04-16 22:57 | PTCARENOTE ---
During initial assessment patient was found to have ripped out his dobhoff. client support representative provider made aware. Unable to give meds- patient strict NPO. Dobhoff to be replaced by GI tomorrow. Will continue to monitor.
[2025-04-17] VITALS (12 sets, daily range): BP systolic 106–137; BP diastolic 47–100; BMI 18.0
[2025-04-17] MEDS: LOPRESSOR 5 MG IV ×4 (00:08→17:38)
--- NOTE | 2025-04-17 03:05 | PTCARENOTE ---
Patient stated he was anxiously waiting for breakfast. Patient reminded that he was unable to eat breakfast because he failed his swallow eval and that he is to remain strict NPO. He was also reminded that he pulled out his dobhoff and he was
receiving his nutrition through that and the tube will have to be replaced by GI today. Patient stated 'I do not want that.' When patient was asked what he would like instead he said 'I want to go home and have everything unplugged and to let me go
peacefully.' Patient encouraged to discuss with family when they visit because they are under the impression he would like a feeding tube. Emotional support provided. Will continue to monitor.
[2025-04-17] MEDS: ZOSYN 50 IV ×4 (03:15→21:18)
[2025-04-17] MEDS: DECADRON 4 MG IV ×2 (03:15→17:38)
[2025-04-17 04:01] LABS: Hematocrit 29.9 % (39.0-52.0); Hemoglobin 9.8 g/dL (13.0-18.0); Mean Corp Hgb Conc. 32.8 g/dL (33.0-37.0); Mean Corpuscular Volume 86.2 fL (80.0-94.0); Platelet Count 291 10^3/uL (130-400); Red Cell Dist. Width 18.9 % (11.5-14.5)
[2025-04-17 04:21] LABS: Blood Urea Nitrogen 43 mg/dl (9-20); Calcium 7.8 mg/dl (8.4-10.2); Carbon Dioxide 29 mmol/L (22-30); Chloride 102 mmol/L (98-107); Estimated Creatinine Clearance 63 ml/min; Glucose 157 mg/dl (70-99); Potassium 4.3 mmol/L (3.5-5.1); Sodium 137 mmol/L (135-145); eGFR > 60.00
--- NOTE | 2025-04-17 07:54 | PTCARENOTE ---
Pt removed NGT on prior shift, unable to administer meds via this route. Dr. Lopez notified.
[2025-04-17] MEDS: NSS (PRESERVATIVE FREE) 10 ML IV (08:36)
[2025-04-17] MEDS: PROTONIX IV 40 MG IV (08:36)
[2025-04-17] MEDS: HYDROCORTISONE 1% LOTION 1 APPLIC TOPICAL (08:36)
--- NOTE | 2025-04-17 09:16 | W.PN.HOSP.TC ---
Today's Communication/Plan
-
Stable for telemetry
Assessment / Plan
Assessment / Plan
HPI: 79-year-old male past medical history of stage IV non-small cell lung cancer with widespread osseous metastatic disease on 4 L after recent treatment for pneumonia, chronic HFpEF, atrial fibrillation, hypertension, hyperlipidemia, COPD, BPH,
SIADH, presenting with dysphagia. He had dysphagia a year ago was cleared to have regular diet and medications. �He saw ENT who trialed PPI at that time without improvement. Patient recently admitted for pneumonia treated and discharged to [facility] on 4 L oxygen. �Patient came back to the emergency room yesterday was replaced to [facility]. �[facility] sent in for dysphagia. �Family is concerned that there medication was not accurate. �Patient states he has no problems swallowing tolerate
regular diet and medications.
#Acute on chronic hypoxic respiratory failure
Patient currently requiring 3 L of oxygen, down from 10 L of oxygen, he was recently discharged on 4 L
Suspect likely due to stage IV lung cancer and pneumonia, treat as below
#Sepsis, present upon admission, from aspiration pneumonia
#History of COPD
Patient still on cefdinir, now changed to IV Zosyn
Appreciate pulmonology input, unable to use CPAP or BiPAP due to lack of cough effort
Prednisone changed to IV steroids, continue supportive care, continue bronchodilators
#Altered mental status
Head CT negative, TSH 4.98. Pulmonology recommends discontinuation of fentanyl patch and sedating medications
Appreciate neurology input, suspect vascular and toxic metabolic encephalopathy, follow-up brain MRI
#Stage IV metastatic lung cancer
#Widespread osseous metastatic disease
Follows with Dr. Sandoval
Appreciate oncology input, patient is hospice appropriate
Oncology, pulmonology, and myself have spoken with the family and relayed that patient is hospice appropriate, but family does not want hospice
Continue goals of care discussion
#Dysphagia
Speech recommends strict n.p.o., patient continues to cough and choke with VSE
04/16 DHT placed by GI, pt pulled out tube that evening
04/17 Pt verbalized in front of that he does not want PEG, does not want DHT. Pt stated he wants to eat, and is fine with dying if he chokes
Continue goals of care discussion
#Severe constipation
Had a bowel movement status post enema
Start laxatives when able
#Orthostatic hypotension
Resume midodrine when able
#Chronic HFpEF
Hold lasix
#Paroxysmal atrial fibrillation with rapid ventricular response
Resume amiodarone & eliquis when able
Cardiology following, continue IV metoprolol scheduled with hold parameters
#Hx of SIADH
Resume sodium chloride tablets when able
#Stage 2 sacral pressure injury and left buttock DTI pressure injury POA
Wound care
#Severe protein calorie malnutrition
DVT prophylaxis�subcu Lovenox while unable to take Eliquis
DNR
Updated 04/17
Total time spent to see the patient on the floor, examine the patient, review data and lab results, discuss treatment plan with patient, nursing staff around 53 minutes.
Physical Exam
General: Appears chronically ill
HEENT: Normocephalic, Atraumatic, EOMI, MMM
Respiratory: Coarse breath sounds diffusely
Cardiac: Normal S1/S2, Regular Rate and Rhythm
GI: Soft, Nontender, Nondistended, Normal Bowel Sounds
Extremities: No Clubbing, Cyanosis, or Edema
Neuro: Oriented to person, place, and time
Anticipated Discharge: > 48 hours
Subjective/Interval History
-
Date of Service: April 17, 2025
Patient denies chest pain, denies shortness of breath. No palpitations. He does report intermittent coughing. No fever.
Objective Data
-
Labs:
Laboratory Results
04/17/25
03:20
WBC 12.7 H
Hgb 9.8 L
Hct 29.9 L
Plt Count 291
Sodium 137
Potassium 4.3
Chloride 102
Carbon Dioxide 29
BUN 43 H
Creatinine 0.7
Glucose 157 H
Calcium 7.8 L
Vital Signs:
Vital Signs
Temp Pulse Resp BP Pulse Ox
97.6 F 67 22 119/70 97
04/17/25 07:52 04/17/25 06:00 04/17/25 06:00 04/17/25 06:00 04/17/25 08:53
I&O
04/16/25 04/17/25 04/18/25
06:59 06:59 06:59
Intake Total 645 / 645 100 / 100
Output Total 400 / 400 350 / 350
Balance 245 / 245 -250 / -250
--- NOTE | 2025-04-17 09:37 | W.PN.PUL3 ---
Today's Communication / Plan
-
Continue nebulizers as needed
Hold inhalers for now
Continue IV corticosteroids without change, if continues to improve transition to prednisone tomorrow
Continue antibiotics for possible aspiration for the next 7 days. Can transition to Augmentin if possible in the next 24 to 48 hours
Tube feedings-per primary team
Physical therapy as able
Wean off oxygen as able- usually not on oxygen supplementation
Assessment
-
79-year-old man with widely metastatic lung cancer, malnutrition, recent admission to the hospital for pneumonia on oral antibiotics. Discharged to rehab, came to the emergency room few days later for failure to thrive, dysphagia, debilitation.
Sent back to [facility]. Readmitted to [facility] for dysphagia. Overnight patient developed change in mental status-this morning obtunded, more hypoxemic up to 10 L nasal cannula. Not responsive. I was emergently consulted on 04/15/2025 for
evaluation.
Patient is critically ill
Acute hypoxemic respiratory failure currently on 10 L nasal cannula
Suspected acute hypercapnic respiratory failure/hypoventilation
With leukocytosis and abnormal chest x-ray: Cannot rule out aspiration event.
Suspect sepsis component-patient unable to mount a response due to severe protein caloric malnutrition
Rule out other source of infection
Cannot rule out MANAGER PRICING event such as a stroke
Conditions present prior admission:
Discharged from [facility] 04/10/2025 after evaluation for exacerbation of COPD/hypoxemia possibly heart failure.
Stage IV NSCLC/right upper lung lung lesion: Status post XRT in 2019.
Now on Keytruda. Widespread osseous metastatic disease, retroperitoneum and bilateral pulmonary nodules
Initially diagnosed in 2019
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
Chronic HFpEF
Atrial fibrillation
Orthostatic hypotension
Dysphagia
Hypertension
Hyperlipidemia
BPH
Obstructive sleep apnea, severe
Central apnea
Hernia repair
Bilateral cataract surgery
Former smoker
Right shoulder pain status post ORIF
Malnutrition
Depression
Glaucoma
-
Assessment and plan:
Abrupt onset change in mental status and worsening hypoxemia.
Improved oxygen requirements 04/17/2025 - suspect had some degree of hypoventilation form his poor mental status - currently down to 3L NC.( Usually not on oxygen at home)
Will need home oxygen assessment closer to discharge.
Improved mental status-now awake and following commands. Has a cough effort.
-
Differential diagnosis is broad.
Including sepsis component and inability to mount a response in this patient that it is significant now large and debilitated due to metastatic lung cancer currently on Keytruda-currently on hold.
Chest x-ray: Bilateral infiltrates similar to before-aspiration pneumonitis cannot be ruled.
Leukocytosis worse today, may be steroid effect - cont. to follow.
Remains afebrile but pt immunosuppressed.
-
Agree with broad-spectrum antibiotics for now-to cover for possible aspiration pneumonia-Zosyn day #2. Eventual transition to Augmentin if all cultures negative.
CXR 04/15/2025:Moderate elevation right hemidiaphragm, stable. Colon is present underneath the right hemidiaphragm, also stable.
Oblique band of increased density in the right midlung, similar appearance to recent CT examination, and probably posttreatment change from previous neoplasia. There is patchy parenchymal opacity within the medial right lower lung, which is also
stable from recent examinations, and is most likely atelectasis, similar appearance to recent exams.
There is also patchy parenchymal opacity within the left lower lung, with main differential considerations of atelectasis and/or pneumonia. Compared to most recent radiograph, probably slight improvement in atelectatic change in the medial left
lower lung.
-
Sputum culture- nohemi - contaminant likely
Urine culture also with Nohemi
Blood culture negative
UA with bacterial and few WBC
-
ABG with compensated chronic hypercapnic resp. failure.
He uses AVAP for now(TASIA/Central apneas). Can restart if family brings device.
avoid sedatives until more awake.
Fenatnyl patch DCd for now-can reintroduce if necessary at a lower dose cautiously-will defer to primary team.
Gabapentin also was on hold-can reintroduce if necessary cautiously. Will defer to primary team
-
Patient is DNR status
-
TSH-- slightly abnormal.
Will decrease IV steroids , cont. to taper -- possibility of relatively adrenal insufficiency and also treat residual COPD exacerbation which is not severe.
Currently dexamethasone 4 mg IV every 12. Continue to taper down, transition to prednisone in the next 24 hours with a slow taper. Currently patient has a Dobbhoff tube in place.
-
Electrolyte where balanced.
-
History of dysphagia: Patient is malnourished.
Significantly Abnormal VSE 04/16/2025.
N.p.o. for now
Dobbhoff tube in place-pt pulled off. He declined PEG placement.
Speech pathology following
Head of the bed elevation
-
proBNP was elevated before-no evidence for volume overload on my exam.
No indications for IV diuresis.
-
Improve mental status: Suspect combination of hypoactive delirium on underlying Parkinson/dementia, medication effect (gabapentin/fentanyl etc.)
Cannot rule out MANAGER PRICING event such as acute CVA-unable to obtain CT head due to poor mental status and respiratory decompensation.
Discussed with family as well-unlikely to exchange clerk.
CT head no acute abnormalities.
neurology correspondance reviewed - MRI ordered.
-
COPD:
Continue secretion clearance interventions:
Currently not bronchospastic- Relatively clear lungs. Strong cough effort.
Able to clear secretion
Hold inhalers-for now, doubt he can perform adequate inhaler maneuver.Can restart after discharge.
Nebulizers 3 times a day as needed for now.
IV steroids as above for now. Hopefully can transition to prednisone in the next 24 to 48 hours.
Continue mucolytics
Incentive spirometry
-
Atrial fibrillation: Intermittently having tachycardia- Currently heart rate is controlled.
Borderline hypotensive challenging to use beta-blockers or calcium channel blockers
On anticoagulation
Will limit beta agonist
-
DVT prophylaxis patient on anticoagulation-restarted Eliquis
-
-
Dr. Norman had extensive discussion with family over the phone and in person on 04/15/2025-they understand critical situation. Supportive care for now.
Poor prognosis.
Eventual follow-up with Dr. Boateng in the outpatient setting.
-
Subjective Data
-
Date of Service:
Date of Service: April 17, 2025
Chief Complaint: Pulmonary Follow Up (Hypoxemic respiratory failure)
Subjective:
Feels better this morning
Denies abdominal pain nausea or vomiting
Denies shortness of breath at rest
Review of Systems
General: Fever (n)
Cardiopulmonary: Dyspnea, Dyspnea on Exertion and Cough
GI: Abdominal Pain (n) and Nausea (n)
Objective Data
Data Reviewed
Vital Signs / I&O / Oxygen:
Vital Signs
Temp Pulse Resp BP Pulse Ox
97.6 F 67 22 119/70 97
04/17/25 07:52 04/17/25 06:00 04/17/25 06:00 04/17/25 06:00 04/17/25 08:53
Intake and Output
04/16/25 04/17/25 04/18/25
06:59 06:59 06:59
Intake Total 645 / 645 100 / 100
Output Total 400 / 400 350 / 350
Balance 245 / 245 -250 / -250
SaO2 97
Nasal Cannula flow liters per 3
minute
Physical Exam
General: Other (Cachectic) and Other (Alert, following commands.)
HEENT: Normocephalic
Cardiovascular: S1-S2
Respiratory: Clear
GI: Soft and Non Distended
Neurology: Awake, Alert, No Motor Deficits and Other (Following commands.)
Skin: Warm
Labs/Micro/Reports
Lab Data
04/17/25 03:20
04/17/25 03:20
Microbiology
04/16/25 11:56 Urine Urine Culture - Final
Nohemi albicans
04/15/25 05:58 Nose MRSA Screen - Final
No Methicillin Resistant Staphylococcus aureus isolated.
--- NOTE | 2025-04-17 09:58 | W.PN.CARDCBS ---
Today's Communication / Plan
-
Back in sinus rhythm. Would continue home cardiac meds once patient has oral access
We will sign off, recall as needed
Impression / Plan
-
Primary Ice Scraper: Dr. Dempsey
Assessment:
Dysphagia s/p DHT placement 04/16/25
PNA, concern for aspiration
Admission to [facility] 02/2025 for syncope, orthostasis and 03/2025 for PNA, CHF, afib
Chronic HFpEF
Known paroxysmal atrial fibrillation
Chronic OAC with Eliquis
Orthostatic hypotension
Widely metastatic NSCLC on keytruda
COPD/emphysema
SVC syndrome, currently receiving radiation�improvement after radiation of upper extremity edema
Thyroid nodules
BPH
Tobacco abuse
Thoracic aortic aneurysm 4.[address] in [address] on [address] of chest
Diverticulitis with diverticular abscess with colon resection
Chronic neck and back pain
Former alcoholic
DNR code status
ECHO 11/18/24: EF 55-60%, normal RWM, mild TR, trivial pericardial effusion, dilated aortic root
ECHO 02/23/2025: LV ejection fraction 55 to 60%. No regional wall motion abnormality. Normal RV size and systolic function. Trace mitral regurgitation. Trileaflet mildly sclerotic aortic valve with trace aortic regurgitation. Mild tricuspid
regurgitation. Estimated pulmonary artery pressure 29 mmHg assuming a right atrial pressure 3 mmHg. Trivial pericardial effusion. Mildly dilated aortic root: 4.1 cm at sinus of Valsalva. Mildly dilated proximal ascending aorta, 4.1 cm.
Plan:
- Back in sinus rhythm today, converted around 7pm 04/16/25 w/out significant pause
- Patient pulled out NG tube overnight. Once he has oral access would resume home cardiac meds including p.o. amiodarone 200 mg twice daily as well as Eliquis 2.5 mg twice daily.
- Discussed with nursing
We will sign off, please recall as needed
Progress Note - Ice Scraper
Subjective
Date of Service: April 17, 2025
Patient converted from A-fib to sinus rhythm around 7 PM last evening. Reportedly pulled out his Dobbhoff tube overnight and no longer has oral access. Resting comfortably in bed today in the IMU. No cardiac complaints.
Objective
Labs:
04/17/25 03:20
04/17/25 03:20
Labs
Hgb 9.8 g/dL (13.0-18.0) L 04/17/25 03:20
Hct 29.9 % (39.0-52.0) L 04/17/25 03:20
Plt Count 291 10^3/uL (130-400) 04/17/25 03:20
Sodium 137 mmol/L (135-145) 04/17/25 03:20
Potassium 4.3 mmol/L (3.5-5.1) 04/17/25 03:20
BUN 43 mg/dl (9-20) H 04/17/25 03:20
Creatinine 0.7 mg/dL (0.7-1.3) 04/17/25 03:20
Glucose 157 mg/dl (70-99) H 04/17/25 03:20
Vital Signs and I&O:
Vital Signs
Temp Pulse Resp BP Pulse Ox
97.6 F 67 22 119/70 97
04/17/25 07:52 04/17/25 06:00 04/17/25 06:00 04/17/25 06:00 04/17/25 08:53
Vital Signs
Temp Pulse Resp BP Pulse Ox
97.6 F 67 22 119/70 97
04/17/25 07:52 04/17/25 06:00 04/17/25 06:00 04/17/25 06:00 04/17/25 08:53
Intake & Output
04/15/25 04/16/25 04/17/25 04/18/25
06:59 06:59 06:59 06:59
Intake Total 645 / 645 100 / 100
Output Total 400 / 400 350 / 350
Balance 245 / 245 -250 / -250
Physical Exam
Physical Exam
Gen: NAD, AA, cachectic
HEENT: NC/AT, sclera anicteric
Neck: No JVD
CV: RRR, NL s1/s2
Lungs: CTAB
Abd: S/ND
Ext: No LE edema
Skin: Warm, dry
Neuro: Non-focal
--- NOTE | 2025-04-17 10:10 | PTOTSP ---
Speech Language Pathology
Pt seen for dysphagia tx. Extensively reviewed results/recommendations from VSE completed yesterday. Pt had DHT in place, which he pulled out overnight. He does not recall doing so. Discussed that we are in the same situation as yesterday with
P.O. intake being high risk for aspiration and airway obstruction/choking to . Discussed plan from here re: nutrition and whether he would want tube replaced. Pt stated 'I can't promise I won't pull out the tube, I wouldn't tolerate being
restrained, and I don't want a feeding tube in my stomach.' Discussed that if pt were to accept risks of eating/drinking, this may not cause comfort, but may be distressing given high risk for airway obstruction. Referenced episode during VSE with
significant aspiration and complete blockage of airflow and pt's discomfort with this episode. Pt stated he understands, but thinks eating/drinking will give him comfort regardless, and he would like to eat and drink. He then stated 'DNR, DNR,
DNR.' This was communicated to RN and MD.
As plan is still undecided officially with family, handout on swallowing exercises provided bedside. Explained, demonstrated, and practiced effortful swallow exercises with use of ice chips. Pt able to complete 10 with min cueing. Frequent wet
coughing noted, suspect aspiration based on VSE results.
Recommend:
(1) Strict NPO
(2) Oral care 4x/day with suctioning as needed
(3) Non-oral meds
(4) Will initiate Aspiration Risk Hydration Protocol (ARHP) for comfort and to provide moisture--sparing ice chips post oral care given supervision
(5) MANAGER BOOKS to continue to follow
[2025-04-17] MEDS: NSS 1000 IV (13:06)
--- NOTE | 2025-04-17 14:08 | W.PN.ONC2 ---
Today's Communication / Plan
-
continue GOC
and son at bedside provided updates and quesitons answered
Impression
Impression
Acute hypoxemic respiratory failure
COPD/hypoxemia possibly heart failure.
Stage IV NSCLC/RUL lesion s/p XRT in 2019 now on Keytruda. Widespread osseous metastatic disease, retroperitoneum and bilateral pulmonary nodules. most recent PET with a positive response to treatment.
chronic cancer pain on narcotics
Chronic HFpEF
Atrial fibrillation
Orthostatic hypotension
Dementia
dyphagia, currently NPO due to aspiration
Plan
Plan
continue GOC
If goals remain restorative, will need to recover from hospitalization and improve performance status to resume keytruda
Subjective/Objective
Subjective
awake and alert
pain aleivated by repositioning
Vital Signs:
Vital Signs
Temp Pulse Resp BP Pulse Ox
97.3 F 57 18 129/61 100
04/17/25 11:03 04/17/25 12:00 04/17/25 12:00 04/17/25 12:00 04/17/25 12:00
Lab Results:
Laboratory Data
WBC 12.7 10^3/uL (4.8-10.8) H 04/17/25 03:20
Hgb 9.8 g/dL (13.0-18.0) L 04/17/25 03:20
Plt Count 291 10^3/uL (130-400) 04/17/25 03:20
eGFR > 60.00 04/17/25 03:20
Physical Exam
HEENT: Moist Mucous Membranes; No Jaundice
GI: Soft
Extremities: Pulses Present; No Edema
--- NOTE | 2025-04-17 14:47 | PTCARENOTE ---
This RN present with Dr. Lopez during discussion with pt's . expresses she will not be calling son to be part of this discussion. At the time of this discussion, pt alert and oriented. Pt's wishes were made very clear to all present. Shortly
after MD left the room, pt's son arrived.
Pt's son then present, many questions asked by son, answered by ALFREDITO Trujillo when she arrived, and this RN. Lengthy discussions had at bedside. Pt continues to remain firm that he does not wish to pursue alternative feeding methods, and states he
is tired of this repeated discussion. Pt's son expressing his desires to understand 'why' the pt is unable to swallow 'in order to have peace.' Emotional support provided. Pastoral care offered; declined at this time. All family members present then
requesting a new physician. Dr. Lopez notified. Awaiting new MD assignment. Family also requesting to meet with speech therapy- notified via TT. Ongoing support provided to pt and family.
--- NOTE | 2025-04-17 16:16 | CM ---
Following up on Patient. RN stated that patient pulled his Dobhoff tube last night. Oncology notes says NPO due to aspiration. Case Management to follow.
PLAN: Anticipate send to SNF
--- NOTE | 2025-04-17 17:26 | PTCARENOTE ---
This RN again present with pt and family who are discussing situation and GOC. Pt requesting ice and seemingly in agreement with stopping care such as testing and IV abx. Son not in agreement and requesting pt have repeat video swallow Sunday or
Sunday of next week, and that staff and MDs do not bring up hospice discussions any more at this time.
--- NOTE | 2025-04-17 17:32 | PTCARENOTE ---
Pt weaned to RA with sats in the mid s.
[2025-04-17] MEDS: XALATAN OPHTHALMIC SOLUTION 1 DROP BOTH EYES (21:18)
--- NOTE | 2025-04-18 00:12 | PTCARENOTE ---
Patient transferred to [address] [place] [address] on 2 liters NC. Family updated on room change. Patient with no belongings- son took home phone today.
[2025-04-18] MEDS: LOPRESSOR 5 MG IV ×4 (00:15→17:24)
[2025-04-18 03:35] VITALS: BP 134/66
[2025-04-18] MEDS: ZOSYN 50 IV ×4 (03:54→21:18)
[2025-04-18] MEDS: DECADRON 4 MG IV (04:03)
[2025-04-18 06:00] VITALS: BMI 17.6
[2025-04-18 07:42] LABS: Hematocrit 31.4 % (39.0-52.0); Hemoglobin 10.0 g/dL (13.0-18.0); Mean Corp Hgb Conc. 31.8 g/dL (33.0-37.0); Mean Corpuscular Volume 88.0 fL (80.0-94.0); Platelet Count 315 10^3/uL (130-400); Red Cell Dist. Width 18.9 % (11.5-14.5)
[2025-04-18 07:47] VITALS: BP 145/62
[2025-04-18 08:23] LABS: Blood Urea Nitrogen 33 mg/dl (9-20); Calcium 7.6 mg/dl (8.4-10.2); Carbon Dioxide 29 mmol/L (22-30); Chloride 105 mmol/L (98-107); Estimated Creatinine Clearance 62 ml/min; Glucose 130 mg/dl (70-99); Potassium 3.9 mmol/L (3.5-5.1); Sodium 138 mmol/L (135-145); eGFR > 60.00
[2025-04-18] MEDS: NSS (PRESERVATIVE FREE) 10 ML IV (09:37)
[2025-04-18] MEDS: PROTONIX IV 40 MG IV (09:38)
[2025-04-18] MEDS: HYDROCORTISONE 1% LOTION 1 APPLIC TOPICAL (09:39)
[2025-04-18] MEDS: NSS 1000 IV (09:39)
--- NOTE | 2025-04-18 10:58 | W.PN.HOSP.TC ---
Today's Communication/Plan
-
D5NS
monitor electrolytes
repeat VSE on Sunday
Assessment / Plan
Assessment / Plan
HPI: 79-year-old male past medical history of stage IV non-small cell lung cancer with widespread osseous metastatic disease on 4 L after recent treatment for pneumonia, chronic HFpEF, atrial fibrillation, hypertension, hyperlipidemia, COPD, BPH,
SIADH, presenting with dysphagia. He had dysphagia a year ago was cleared to have regular diet and medications. �He saw ENT who trialed PPI at that time without improvement. Patient recently admitted for pneumonia treated and discharged to [facility] on 4 L oxygen. �Patient came back to the emergency room yesterday was replaced to [facility]. �[facility] sent in for dysphagia. �Family is concerned that there medication was not accurate. �Patient states he has no problems swallowing tolerate
regular diet and medications.
#Acute on chronic hypoxic respiratory failure
Patient currently requiring 2 L of oxygen, down from 10 L of oxygen, he was recently discharged on 4 L
Hypoxia secondary to cancer and aspiration/pneumonia
#Sepsis, present upon admission, from aspiration pneumonia
#History of COPD
-IV Zosyn
Appreciate pulmonology input, unable to use CPAP or BiPAP due to lack of cough effort
-continue nebs
-IV Decadron --> lower dose to 3G BID
#Altered mental status
Head CT negative, TSH 4.98. Pulmonology recommends discontinuation of fentanyl patch and sedating medications
Appreciate neurology input, suspect vascular and toxic metabolic encephalopathy, follow-up brain MRI, performed this morning
#Stage IV metastatic lung cancer
#Widespread osseous metastatic disease
Follows with Dr. Sandoval
Appreciate oncology input, patient is hospice appropriate
Oncology, pulmonology, Dr. Lopez spoke with the family and relayed that patient is hospice appropriate, but family has been resistant. I spoke to this morning. We will plan for repeat VSE on Sunday, aware that if fails we don't have any
options other than hospice (see below)
#Dysphagia
Speech recommends strict n.p.o., patient continues to cough and choke with VSE
04/16 DHT placed by GI, pt pulled out tube that evening
04/17 Pt verbalized in front of that he does not want PEG, does not want DHT. Family resistant to hospice. Patient confused again today and unable to have these conversations. He ripped out NGT and IV. *A PEG would be too dangerous as if he
rips it out it would cause peritonitis. I told we can try for VSE on Sunday but if he fails we do not have a safe way to give him nutrition.
We also will not replace DHT as he will pull it out and we can't ethically restrain him to keep tubes in especially when lucid he said he would not want one.
#Severe constipation
-s/p enema
#Orthostatic hypotension
Resume midodrine when able
#Chronic HFpEF
Hold lasix
#Paroxysmal atrial fibrillation with rapid ventricular response
Resume amiodarone & eliquis when able
Cardiology following, continue IV metoprolol scheduled with hold parameters
#Hx of SIADH
Resume sodium chloride tablets when able
#Stage 2 sacral pressure injury and left buttock DTI pressure injury POA
Wound care
#Severe protein calorie malnutrition
DVT prophylaxis�subcu Lovenox while unable to take Eliquis
DNR
Updated 04/18
Total time spent to see the patient on the floor, examine the patient, review data and lab results, discuss treatment plan with patient, nursing staff around 53 minutes.
Physical Exam
General: Appears chronically ill
HEENT: Normocephalic, Atraumatic, EOMI, MMM
Respiratory: Coarse breath sounds diffusely
Cardiac: Normal S1/S2, Regular Rate and Rhythm
GI: Soft, Nontender, Nondistended, Normal Bowel Sounds
Extremities: No Clubbing, Cyanosis, or Edema
Neuro: Oriented to person, place, and time
51 minutes spent on patient care
Anticipated Discharge: > 48 hours
Subjective/Interval History
-
Date of Service: April 18, 2025
patient seen with at bedside. He is confused, denies pain
Objective Data
-
Labs:
Laboratory Results
04/18/25
07:18
WBC 11.4 H
Hgb 10.0 L
Hct 31.4 L
Plt Count 315
Sodium 138
Potassium 3.9
Chloride 105
Carbon Dioxide 29
BUN 33 H
Creatinine 0.7
Glucose 130 H
Calcium 7.6 L
Vital Signs:
Vital Signs
Temp Pulse Resp BP Pulse Ox
97.7 F 58 17 145/62 97
04/18/25 07:47 04/18/25 07:47 04/18/25 07:47 04/18/25 07:47 04/18/25 07:47
I&O
04/17/25 04/18/25 04/19/25
06:59 06:59 06:59
Intake Total 100 / 100
Output Total 350 / 350 600 / 600
Balance -250 / -250 -600 / -600
Review of Systems
-
History Source: Patient
All other systems: Reviewed and negative
Physical Exam
-
General: No Apparent Distress, Comfortable, Appears Chronically Ill and Cachectic
HEENT: Normocephalic, Atraumatic and Anicteric
Respiratory: Clear to Auscultation
Cardiac: S1/S2 and Irregular Rhythm
GI: Soft, Nontender, Nondistended, Normal Bowel Sounds and Flat
Musculoskeletal: No Clubbing, No Cyanosis and No Edema
Skin: Warm and Dry
Neuro: Awake and Alert; Negative Oriented
Psych: Calm and Confused
Data Reviewed
-
Diagnostic Radiology: Report Reviewed by me
Labs: Labs Reviewed by me
[2025-04-18 13:17] VITALS: BP 133/81
[2025-04-18 15:07] VITALS: BP 144/70
[2025-04-18] MEDS: DECADRON 3 MG IV (16:45)
--- NOTE | 2025-04-18 16:55 | W.PN.PUL3 ---
Today's Communication / Plan
-
Start scheduled DuoNebs; May need to change albuterol to lower dose and possibly hold altogether if he becomes tachycardic
Continue IV corticosteroids without change as currently no PO access; wean down decadron as tolerated while he improves
Continue antibiotics for possible aspiration for the next 7 days. Can transition to Augmentin if possible in the next 24 to 48 hours
Physical therapy as able
Wean off oxygen as able- usually not on oxygen supplementation
Pulmonary service will continue to follow along
Assessment
-
79-year-old man with widely metastatic lung cancer, malnutrition, recent admission to the hospital for pneumonia on oral antibiotics. Discharged to rehab, came to the emergency room few days later for failure to thrive, dysphagia, debilitation.
Sent back to [facility]. Readmitted to [facility] for dysphagia. Overnight patient developed change in mental status-this morning obtunded, more hypoxemic up to 10 L nasal cannula. Not responsive. I was emergently consulted on 04/15/2025 for
evaluation.
Patient is critically ill
Acute hypoxemic respiratory failure currently on 2L/min nasal cannula
Acute on chronic hypercapnic respiratory failure with hypoventilation
Leukocytosis and abnormal chest x-ray: Cannot rule out aspiration event.
Suspect sepsis component-patient unable to mount a response due to severe protein caloric malnutrition
Rule out other source of infection
Cannot rule out [employer] event such as a stroke
Conditions present prior admission:
Discharged from [facility] 04/10/2025 after evaluation for exacerbation of COPD/hypoxemia possibly heart failure.
Stage IV NSCLC/right upper lung lung lesion: Status post XRT in 2019.
Now on Keytruda. Widespread osseous metastatic disease, retroperitoneum and bilateral pulmonary nodules
Initially diagnosed in 2019
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
Chronic HFpEF
Atrial fibrillation
Orthostatic hypotension
Dysphagia
Hypertension
Hyperlipidemia
BPH
Obstructive sleep apnea, severe
Central apnea
Hernia repair
Bilateral cataract surgery
Former smoker
Right shoulder pain status post ORIF
Malnutrition
Depression
Glaucoma
-
Assessment and plan:
Abrupt onset change in mental status and worsening hypoxemia.
Improved oxygen requirements 04/17/2025 and 04/18/2025 - now down from 10L/min to 2L/min and appears to be breathing comfortably. Suspect he has some degree of hypoventilation from poor mental status - currently down to 2L NC.( Usually not on oxygen
at home)
Will need home oxygen assessment closer to discharge.
Improved mental status-now awake and following commands.
-
Differential diagnosis is broad.
Including sepsis component and inability to mount a response in this patient that it is significant now large and debilitated due to metastatic lung cancer currently on Keytruda-currently on hold.
Chest x-ray: Bilateral infiltrates similar to before-aspiration pneumonitis cannot be ruled.
Leukocytosis worse today, may be steroid effect - cont. to follow.
Remains afebrile but pt immunosuppressed.
-
Agree with broad-spectrum antibiotics for now-to cover for possible aspiration pneumonia-Zosyn. Eventual transition to Augmentin if all cultures negative.
CXR 04/15/2025:Moderate elevation right hemidiaphragm, stable. Colon is present underneath the right hemidiaphragm, also stable.
Oblique band of increased density in the right midlung, similar appearance to recent CT examination, and probably posttreatment change from previous neoplasia. There is patchy parenchymal opacity within the medial right lower lung, which is also
stable from recent examinations, and is most likely atelectasis, similar appearance to recent exams.
There is also patchy parenchymal opacity within the left lower lung, with main differential considerations of atelectasis and/or pneumonia. Compared to most recent radiograph, probably slight improvement in atelectatic change in the medial left
lower lung.
-
Sputum culture- michelle - contaminant likely
Urine culture also with Michelle
Blood culture negative
UA with bacterial and few WBC
-
ABG with compensated chronic hypercapnic resp. failure.
He uses AVAP for now(TASIA/Central apneas). Would hold off on resuming for now as this will raise risk of aspiration
Avoid [employer]BER-depressing medications
Fenatnyl patch DCd for now-can reintroduce if necessary at a lower dose cautiously-will defer to primary team.
Gabapentin also was on hold-can reintroduce if necessary cautiously. Will defer to primary team
-
Patient is DNR status
-
TSH-- slightly abnormal.
Taper steroids as he clinically improves-- possibility of relatively adrenal insufficiency and also treat residual COPD exacerbation which is not severe.
Currently dexamethasone 3 mg IV every 12. Continue to taper down, transition to prednisone in the next 24-48 hrs hours with a slow taper. Dobhoff tube was pulled by the patient, hence unable to do PO meds as of now
-
Electrolyte where balanced.
-
History of dysphagia: Patient is malnourished.
Significantly Abnormal VSE 04/16/2025.
NPO for now
Pt pulled out his dobbhoff tube - He declined PEG placement.
Speech pathology following
Now that he is more awake, would consider rechecking PHYSICIAN RECRUITER eval in next 24-48 hrs
Head of the bed elevation
-
proBNP was elevated before-no evidence for volume overload on my exam.
No indications for IV diuresis.
-
Improve mental status: Suspect combination of hypoactive delirium on underlying Parkinson/dementia, medication effect (gabapentin/fentanyl etc.)
Cannot rule out [employer] event such as acute CVA-unable to obtain CT head due to poor mental status and respiratory decompensation.
Discussed with family as well-unlikely to ticket dispenser changer.
CT head no acute abnormalities.
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
-
COPD:
Continue secretion clearance interventions:
Currently not bronchospastic- Relatively clear lungs. Strong cough effort.
Able to clear secretions
Start DuoNebs TID as well as prn nebs
IV steroids as above for now. Hopefully can transition to prednisone in the next 24 to 48 hours.
Continue mucolytics
Incentive spirometry
-
Atrial fibrillation: Intermittently having tachycardia- Currently heart rate is controlled.
Borderline hypotensive challenging to use beta-blockers or calcium channel blockers
On anticoagulation with Eliquis
Will limit beta agonist
-
DVT prophylaxis patient on anticoagulation-Eliquis
-
-
Dr. Norman had extensive discussion with family over the phone and in person on 04/15/2025-they understand critical situation. Supportive care for now.
Dr. Estrada answered the 's and son's questions today
Poor prognosis.
Eventual follow-up with Dr. Boateng in the outpatient setting.
-
Total time spent today was 38 minutes for this encounter. Time includes reviewing laboratory test/imaging results, reviewing pertinent medical records, obtaining and reviewing medical history, performing an appropriate exam, ordering medications,
tests and procedures. Time also includes documentation of this encounter, coordinating patient care and communicating with other healthcare professionals. Total time does not include separately billed tests performed on this date of service.
Subjective Data
-
Date of Service:
Date of Service: April 18, 2025
Chief Complaint: Pulmonary Follow Up (Hypoxemic respiratory failure)
Subjective:
Patient seen and evaluated today at bedside (late note entry). Patient's , Franchesca and son, Jaspreet present at bedside. All questions were answered. Patient remains awake but confused at times. Currently on 2 L/min nasal cannula. The
patient denies shortness of breath but says he has a cough and is able to bring up his phlegm without any issue.
Review of Systems
General: Other (Negative unless mentioned above)
Objective Data
Data Reviewed
Vital Signs / I&O / Oxygen:
Vital Signs
Temp Pulse Resp BP Pulse Ox
97.7 F 58 17 145/62 97
04/18/25 07:47 04/18/25 07:47 04/18/25 07:47 04/18/25 07:47 04/18/25 07:47
Intake and Output
04/17/25 04/18/25 04/19/25
06:59 06:59 06:59
Intake Total 100 / 100
Output Total 350 / 350 600 / 600
Balance -250 / -250 -600 / -600
SaO2 97
Nasal Cannula flow liters per 2
minute
Physical Exam
General: Respiratory Distress (n), Comfortable, Chills (n), Sweats (n), Other (Cachectic) and Other (Alert, following commands.)
HEENT: Normocephalic and Anicteric
Cardiovascular: S1-S2 and Peripheral Edema (+1 LE pitting edema b/l)
Respiratory: Wheeze (n), Rhonchi (n), Non-Labored Respirations, Stridor (n) and Other (coarse BS heard bilaterally)
GI: Soft, Non Distended, Non Tender and Normal Bowel Sounds
Neurology: Awake, Alert, Tremors (n) and Other (Following commands.)
Skin: Warm, Dry, Cyanosis (n) and Jaundice (n)
Labs/Micro/Reports
Lab Data
04/18/25 07:18
04/18/25 07:18
Microbiology
04/16/25 11:56 Urine Urine Culture - Final
Michelle albicans
04/15/25 05:58 Nose MRSA Screen - Final
No Methicillin Resistant Staphylococcus aureus isolated.
[2025-04-18 19:19] VITALS: BP 141/73
[2025-04-18] MEDS: DUONEB 3 ML INH (19:19)
[2025-04-18] MEDS: XALATAN OPHTHALMIC SOLUTION 1 DROP BOTH EYES (21:19)
[2025-04-18 23:16] VITALS: BP 138/67
[2025-04-19] MEDS: LOPRESSOR 5 MG IV ×2 (00:01→05:45)
[2025-04-19] MEDS: TORADOL 15 MG IV ×4 (00:02→22:43)
[2025-04-19 03:14] VITALS: BP 129/87
[2025-04-19] MEDS: DECADRON 3 MG IV ×2 (03:37→16:42)
[2025-04-19] MEDS: ZOSYN 50 IV ×4 (03:37→22:43)
--- NOTE | 2025-04-19 05:00 | PTCARENOTE ---
Pt pulled out IV for the second time this shift, as well as condom catheter and heart monitor. Pt unable to be redirected due to confusion. [place] texted House Provider, Jayce Perez, for b/l mitt restraints.
--- NOTE | 2025-04-19 05:04 | W.PN.UPDATE ---
Update Note
Progress Note Update
patient pulled out IV lines twice, unable to redirect, confusion baseline, will place restraints
[2025-04-19] MEDS: NSS 1000 IV (05:30)
[2025-04-19 05:47] LABS: Hematocrit 35.5 % (39.0-52.0); Hemoglobin 11.3 g/dL (13.0-18.0); Mean Corp Hgb Conc. 31.8 g/dL (33.0-37.0); Mean Corpuscular Volume 87.2 fL (80.0-94.0); Platelet Count 302 10^3/uL (130-400); Red Cell Dist. Width 18.8 % (11.5-14.5)
[2025-04-19 06:00] VITALS: BMI 17.4
[2025-04-19 06:02] LABS: Blood Urea Nitrogen 19 mg/dl (9-20); Calcium 8.0 mg/dl (8.4-10.2); Carbon Dioxide 27 mmol/L (22-30); Chloride 103 mmol/L (98-107); Estimated Creatinine Clearance 72 ml/min; Glucose 98 mg/dl (70-99); Magnesium 2.3 mg/dl (1.6-2.3); Potassium 4.1 mmol/L (3.5-5.1); Sodium 136 mmol/L (135-145); eGFR > 60.00
[2025-04-19 07:30] VITALS: BP 150/74
[2025-04-19] MEDS: DUONEB 3 ML INH ×3 (07:58→19:36)
[2025-04-19] MEDS: NSS (PRESERVATIVE FREE) 10 ML IV (08:46)
[2025-04-19] MEDS: PROTONIX IV 40 MG IV (08:46)
[2025-04-19] MEDS: HYDROCORTISONE 1% LOTION TOPICAL (08:47)
--- NOTE | 2025-04-19 10:06 | W.PN.HOSP.TC ---
Today's Communication/Plan
-
NPO
D5LR
VSE tomorrow and further [facility] discusisons
Assessment / Plan
Assessment / Plan
HPI: 79-year-old male past medical history of stage IV non-small cell lung cancer with widespread osseous metastatic disease on 4 L after recent treatment for pneumonia, chronic HFpEF, atrial fibrillation, hypertension, hyperlipidemia, COPD, BPH,
SIADH, presenting with dysphagia. He had dysphagia a year ago was cleared to have regular diet and medications. �He saw ENT who trialed PPI at that time without improvement. Patient recently admitted for pneumonia treated and discharged to [place]
[facility] on 4 L oxygen. �Patient represented to ER 3 days post discharge for weakness and dysphagia.
Brain MRI
IMPRESSION:
No acute intracranial abnormality within the limitations of motion artifact.
#Acute on chronic hypoxic respiratory failure
Patient currently requiring 2 L of oxygen, down from 10 L of oxygen, he was recently discharged on 4 L
Hypoxia secondary to cancer and aspiration/pneumonia
#Sepsis, present upon admission, from aspiration pneumonia
#History of COPD
-IV Zosyn
Appreciate pulmonology input, unable to use CPAP or BiPAP due to lack of cough effort
-continue nebs
-IV Decadron --> lower dose to 3G BID, decrease dosing further tomorrow
#Altered mental status
Head CT negative, TSH 4.98. Pulmonology recommends discontinuation of fentanyl patch and sedating medications
Appreciate neurology input, suspect vascular and toxic metabolic encephalopathy, brain MRI without acute event
#Stage IV metastatic lung cancer
#Widespread osseous metastatic disease
Follows with Dr. Sandoval
Appreciate oncology input, patient is hospice appropriate
Oncology, pulmonology, Dr. Lopez spoke with the family and relayed that patient is hospice appropriate, but family has been resistant. I spoke to this morning. We will plan for repeat VSE on Sunday, aware that if fails we don't have any
options other than hospice (see below)
#Dysphagia
Speech recommends strict n.p.o., patient continues to cough and choke with VSE
04/16 DHT placed by GI, pt pulled out tube that evening
04/17 Pt verbalized in front of that he does not want PEG, does not want DHT. Family resistant to hospice. Patient intermittently confused. He ripped out NGT and IV. He ripped out IV again x 2 overnight. *A PEG would be too dangerous as if
he rips it out it would cause peritonitis. I told we can try for VSE on Sunday but if he fails we do not have a safe way to give him nutrition.
We also will not replace DHT as he will pull it out and we can't ethically restrain him to keep tubes in especially when lucid he said he would not want one.
*further talks with family today
#Severe constipation
-s/p enema
#Orthostatic hypotension
Resume midodrine when able
#Chronic HFpEF
Hold lasix
#Paroxysmal atrial fibrillation with rapid ventricular response
Resume amiodarone & eliquis when able
Cardiology following, continue IV metoprolol scheduled with hold parameters
#Hx of SIADH
Resume sodium chloride tablets when able
#Stage 2 sacral pressure injury and left buttock DTI pressure injury POA
Wound care
#Severe protein calorie malnutrition
DVT prophylaxis�subcu Lovenox while unable to take Eliquis
DNR
Updated 04/18
51 minutes spent on patient care
Anticipated Discharge: > 48 hours
Subjective/Interval History
-
Date of Service: April 19, 2025
patient resting comfortably
knows he is at [facility]
no new complaints
Objective Data
-
Labs:
Laboratory Results
04/19/25 04/19/25
05:27 05:28
WBC 11.4 H
Hgb 11.3 L
Hct 35.5 L
Plt Count 302
Sodium 136
Potassium 4.1
Chloride 103
Carbon Dioxide 27
BUN 19
Creatinine 0.6 L
Glucose 98
Calcium 8.0 L
Vital Signs:
Vital Signs
Temp Pulse Resp BP Pulse Ox
97.6 F 73 16 150/74 97
04/19/25 07:30 04/19/25 08:01 04/19/25 08:01 04/19/25 07:30 04/19/25 08:01
I&O
04/18/25 04/19/25 04/20/25
06:59 06:59 06:59
Intake Total 0 / 0
Output Total 600 / 600 2620 / 2620
Balance -600 / -600 -2620 / -2620
Review of Systems
-
History Source: Patient
All other systems: Reviewed and negative
Physical Exam
-
General: No Apparent Distress, Comfortable, Appears Chronically Ill and Cachectic
HEENT: Normocephalic, Atraumatic and Anicteric
Respiratory: Clear to Auscultation
Cardiac: S1/S2 and Irregular Rhythm
GI: Soft, Nontender, Nondistended, Normal Bowel Sounds and Flat
Musculoskeletal: No Clubbing, No Cyanosis and No Edema
Skin: Warm and Dry
Neuro: Awake and Alert; Negative Oriented
Psych: Calm and Confused
Data Reviewed
-
Diagnostic Radiology: Report Reviewed by me
Labs: Labs Reviewed by me
[2025-04-19] MEDS: D5LR 1000 IV (10:42)
[2025-04-19 10:55] VITALS: BP 150/64
--- NOTE | 2025-04-19 13:09 | W.PN.UPDATE ---
Update Note
Progress Note Update
I spoke to patient with and son in room. He was oriented to where he was and who was in the room with him. While having conversation with son about repeating swallow and why it is unsafe to replace NGT or place PEG, I asked patient if he
understood what we are talking about and he said 'end of life care.' I asked, would you want food through a tube in nose or belly to keep you alive and he shook his head and said no.
Son stated that he would be ok with artificial nutrition if it was temporary. I said given his degree of dysphagia, it is not reversible. We are taking away any reversible cause (opiates) and will repeat test tomorrow. But if he fails then the
only option is hospice. Patient, and son stated they understood.
[2025-04-19] MEDS: LOPRESSOR IV (13:15)
[2025-04-19 15:34] VITALS: BP 130/66
[2025-04-19] MEDS: LOPRESSOR 2.5 MG IV ×2 (16:43→23:56)
--- NOTE | 2025-04-19 16:55 | W.PN.PUL3 ---
Addendum entered and electronically signed by Mickey Kelly MD 04/20/25 13:03:
Patient has been transition to comfort/hospice. No additional pulmonary critical care needs at this point.
Further management per primary team.
Sign off
Original Note:
Today's Communication / Plan
-
Continue scheduled DuoNebs; May need to change albuterol to lower dose and possibly hold altogether if he becomes tachycardic
Continue IV corticosteroids without change as currently no PO access; wean down decadron as tolerated while he improves
Continue antibiotics for possible aspiration for at least 7 days total. Can transition to Augmentin if possible in the next 24 to 48 hours, once he has PO access or can swallow
Physical therapy as able
Wean off oxygen as able- usually not on oxygen supplementation
He is hospice appropriate
Pulmonary service will continue to follow along
Assessment
-
79-year-old man with widely metastatic lung cancer, malnutrition, recent admission to the hospital for pneumonia on oral antibiotics. Discharged to rehab, came to the emergency room few days later for failure to thrive, dysphagia, debilitation.
Sent back to [facility]. Readmitted to [facility] for dysphagia. Overnight patient developed change in mental status-this morning obtunded, more hypoxemic up to 10 L nasal cannula. Not responsive. I was emergently consulted on 04/15/2025 for
evaluation.
Patient is critically ill
Acute hypoxemic respiratory failure currently on 2-3L/min nasal cannula
Acute on chronic hypercapnic respiratory failure with hypoventilation
Leukocytosis and abnormal chest x-ray: Cannot rule out aspiration event.
Suspect sepsis component-patient unable to mount a response due to severe protein caloric malnutrition
Rule out other source of infection
Cannot rule out MANAGER ONLINE event such as a stroke
Conditions present prior admission:
Discharged from [facility] 04/10/2025 after evaluation for exacerbation of COPD/hypoxemia possibly heart failure.
Stage IV NSCLC/right upper lung lung lesion: Status post XRT in 2019.
Now on Keytruda. Widespread osseous metastatic disease, retroperitoneum and bilateral pulmonary nodules
Initially diagnosed in 2019
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
Chronic HFpEF
Atrial fibrillation
Orthostatic hypotension
Dysphagia
Hypertension
Hyperlipidemia
BPH
Obstructive sleep apnea, severe
Central apnea
Hernia repair
Bilateral cataract surgery
Former smoker
Right shoulder pain status post ORIF
Malnutrition
Depression
Glaucoma
-
Assessment and plan:
Abrupt onset change in mental status and worsening hypoxemia.
Improved oxygen requirements 04/17/2025 and 04/18/2025 - now down from 10L/min to 2-3L/min and appears to be breathing comfortably. Suspect he has some degree of hypoventilation from poor mental status - currently down to 3L NC.( Usually not on
oxygen at home)
Will need home oxygen assessment closer to discharge.
Improved mental status-now awake and following commands.
-
Differential diagnosis is broad.
Including sepsis component and inability to mount a response in this patient that it is significant now large and debilitated due to metastatic lung cancer currently on Keytruda-currently on hold.
Chest x-ray: Bilateral infiltrates similar to before-aspiration pneumonitis cannot be ruled.
Leukocytosis worse today, may be steroid effect - cont. to follow.
Remains afebrile but pt immunosuppressed.
-
Agree with broad-spectrum antibiotics for now-to cover for possible aspiration pneumonia-Zosyn. Eventual transition to Augmentin if all cultures negative.
CXR 04/15/2025:Moderate elevation right hemidiaphragm, stable. Colon is present underneath the right hemidiaphragm, also stable.
Oblique band of increased density in the right midlung, similar appearance to recent CT examination, and probably posttreatment change from previous neoplasia. There is patchy parenchymal opacity within the medial right lower lung, which is also
stable from recent examinations, and is most likely atelectasis, similar appearance to recent exams.
There is also patchy parenchymal opacity within the left lower lung, with main differential considerations of atelectasis and/or pneumonia. Compared to most recent radiograph, probably slight improvement in atelectatic change in the medial left
lower lung.
-
Sputum culture- nohemi - contaminant likely
Urine culture also with Nohemi
Blood culture negative
UA with bacterial and few WBC
-
ABG with compensated chronic hypercapnic resp. failure.
He uses AVAPS (TASIA/Central apneas). Would hold off on resuming for now as this will raise risk of aspiration
Avoid MANAGER ONLINE-depressing medications
Fenatnyl patch DCd for now-can reintroduce if necessary at a lower dose cautiously-will defer to primary team.
Gabapentin also was on hold-can reintroduce if necessary cautiously. Will defer to primary team
-
Patient is DNR status
-
TSH-- slightly abnormal.
Taper steroids as he clinically improves-- possibility of relatively adrenal insufficiency and also treat residual COPD exacerbation which is not severe.
Currently dexamethasone 3 mg IV every 12. Continue to taper down, transition to prednisone in the next 24-48 hrs hours with a slow taper. Dobhoff tube was pulled by the patient, hence unable to do PO meds as of now
-
Electrolyte where balanced.
-
History of dysphagia: Patient is malnourished.
Significantly Abnormal VSE 04/16/2025.
NPO for now
Pt pulled out his dobbhoff tube - He declined PEG placement.
Speech pathology following
Now that he is more awake, agree with re-checking CLINICAL RESEARCH SCIENTIST eval tomorrow (04/20)
Patient has pulled out his NGT and he seems to not want artificial nutrition; as per GI he is not a candidate for G-tube; pt is waxing and waning with his mental status and the pt has stated to hospitalist that he does not want artificial nutrition
with an NGT or G-tube (appeared to be good mentation at that time)
Head of the bed elevation
-
proBNP was elevated before-no evidence for volume overload on my exam.
No indications for IV diuresis.
-
Improved mental status: Suspect combination of hypoactive delirium on underlying Parkinson/dementia, medication effect (gabapentin/fentanyl etc.)
Cannot rule out MANAGER ONLINE event such as acute CVA-unable to obtain CT head due to poor mental status and respiratory decompensation.
Discussed with family as well-unlikely to exchange floor manager.
CT head no acute abnormalities.
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
-
COPD:
Continue secretion clearance interventions:
Currently not bronchospastic- Relatively clear lungs. Strong cough effort.
Able to clear secretions
Continue DuoNebs TID as well as prn nebs
IV steroids as above for now. Hopefully can transition to prednisone in the next 24 to 48 hours.
Continue mucolytics
Incentive spirometry
-
Atrial fibrillation: Intermittently having tachycardia- Currently heart rate is controlled.
Borderline hypotensive challenging to use beta-blockers or calcium channel blockers
On anticoagulation with Eliquis
Will limit beta agonist
-
DVT prophylaxis patient on anticoagulation-Eliquis
-
-
Dr. Norman had extensive discussion with family over the phone and in person on 04/15/2025-they understand critical situation. Supportive care for now.
Dr. Estrada answered the 's and son's questions today
Poor prognosis.
Eventual follow-up with Dr. Boateng in the outpatient setting.
-
Total time spent today was 41 minutes for this encounter. Time includes reviewing laboratory test/imaging results, reviewing pertinent medical records, obtaining and reviewing medical history, performing an appropriate exam, ordering medications,
tests and procedures. Time also includes documentation of this encounter, coordinating patient care and communicating with other healthcare professionals. Total time does not include separately billed tests performed on this date of service.
Subjective Data
-
Date of Service:
Date of Service: April 19, 2025
Chief Complaint: Pulmonary Follow Up (Hypoxemic respiratory failure)
Subjective:
Patient seen and evaluated this AM. On 3L/min NC breathing comfortably. Pulled out his IV overnight.
Review of Systems
General: Other (unobtainable due to acute clinical status/AMS)
Objective Data
Data Reviewed
Vital Signs / I&O / Oxygen:
Vital Signs
Temp Pulse Resp BP Pulse Ox
97.6 F 73 16 150/74 97
04/19/25 07:30 04/19/25 08:01 04/19/25 08:01 04/19/25 07:30 04/19/25 08:01
Intake and Output
04/18/25 04/19/25 04/20/25
06:59 06:59 06:59
Intake Total 0 / 0
Output Total 600 / 600 2620 / 2620
Balance -600 / -600 -2620 / -2620
SaO2 97
Nasal Cannula flow liters per 2
minute
Physical Exam
General: Respiratory Distress (n), Comfortable, Chills (n), Sweats (n), Other (Cachectic) and Other (Alert, following commands.)
HEENT: Normocephalic and Anicteric
Cardiovascular: S1-S2 and Peripheral Edema (+1 LE pitting edema b/l)
Respiratory: Wheeze (n), Rhonchi (n), Non-Labored Respirations, Stridor (n) and Other (coarse BS heard bilaterally)
GI: Soft, Non Distended, Non Tender and Normal Bowel Sounds
Neurology: Awake, Alert, Tremors (n) and Other (Following commands.)
Skin: Warm, Dry, Cyanosis (n) and Jaundice (n)
Labs/Micro/Reports
Lab Data
04/19/25 05:28
04/19/25 05:27
Microbiology
04/16/25 11:56 Urine Urine Culture - Final
Nohemi albicans
04/15/25 05:58 Nose MRSA Screen - Final
No Methicillin Resistant Staphylococcus aureus isolated.
[2025-04-19 19:27] VITALS: BP 133/73
[2025-04-19 23:29] VITALS: BP 124/70
[2025-04-19] MEDS: XALATAN OPHTHALMIC SOLUTION 1 DROP BOTH EYES (23:53)
[2025-04-20] MEDS: OFIRMEV 100 IV (01:35)
[2025-04-20 03:23] VITALS: BP 127/64
[2025-04-20] MEDS: ZOSYN 50 IV ×2 (04:53→11:24)
[2025-04-20] MEDS: DECADRON 3 MG IV (04:53)
[2025-04-20] MEDS: TORADOL 15 MG IV (04:54)
[2025-04-20 06:00] VITALS: BMI 16.3
[2025-04-20] MEDS: LOPRESSOR 2.5 MG IV (06:41)
[2025-04-20] MEDS: D5LR 1000 IV (06:45)
[2025-04-20 07:16] VITALS: BP 116/75
[2025-04-20 07:17] LABS: Blood Urea Nitrogen 16 mg/dl (9-20); Calcium 7.6 mg/dl (8.4-10.2); Carbon Dioxide 27 mmol/L (22-30); Chloride 104 mmol/L (98-107); Estimated Creatinine Clearance 71 ml/min; Glucose 115 mg/dl (70-99); Magnesium 2.3 mg/dl (1.6-2.3); Potassium 4.1 mmol/L (3.5-5.1); Sodium 136 mmol/L (135-145); eGFR > 60.00
[2025-04-20] MEDS: DUONEB 3 ML INH ×3 (07:20→20:10)
[2025-04-20] MEDS: PROTONIX IV 40 MG IV (08:23)
[2025-04-20] MEDS: NSS (PRESERVATIVE FREE) 10 ML IV (08:24)
[2025-04-20] MEDS: HYDROCORTISONE 1% LOTION TOPICAL (08:45)
--- NOTE | 2025-04-20 09:23 | W.PN.ONC2 ---
Today's Communication / Plan
-
VSE plan noted with continued GOC
Impression
Impression
Acute hypoxemic respiratory failure
COPD/hypoxemia possibly heart failure.
Stage IV NSCLC/RUL lesion s/p XRT in 2019 now on Keytruda. Widespread osseous metastatic disease, retroperitoneum and bilateral pulmonary nodules. most recent PET with a positive response to treatment.
chronic cancer pain on narcotics
Chronic HFpEF
Atrial fibrillation
Orthostatic hypotension
Dementia
dyphagia, currently NPO due to aspiration
Plan
Plan
continue GOC
If goals remain restorative, will need to recover from hospitalization and improve performance status to resume keytruda
Subjective/Objective
Subjective
appears comfortable
no new complaints
Vital Signs:
Vital Signs
Temp Pulse Resp BP Pulse Ox
97.3 F 76 18 116/75 97
04/20/25 07:16 04/20/25 07:24 04/20/25 07:24 04/20/25 07:16 04/20/25 09:18
Lab Results:
Laboratory Data
WBC 11.4 10^3/uL (4.8-10.8) H 04/19/25 05:28
Hgb 11.3 g/dL (13.0-18.0) L 04/19/25 05:28
Plt Count 302 10^3/uL (130-400) 04/19/25 05:28
eGFR > 60.00 04/20/25 05:37
Physical Exam
HEENT: Other (cachectic); No Jaundice
Pulmonary: Other (unlaboredd)
GI: Soft
Extremities: Pulses Present; No Edema
--- NOTE | 2025-04-20 11:02 | CM ---
Addendum entered by Winnie North 04/20/25 12:49:
Patient seen at bedside with and 2 sons, patient requested I come back. VN liaison aware of consult. CM will continue to follow for discharge planning needs.
Original Note:
Patient seen at bedside on 2 north. Patient for Video Swallow testing today, await further GOC discussion with patient family and physicians. CM will continue to follow for discharge planning needs.
Plan; pending medical treatment plan
[2025-04-20 11:22] VITALS: BP 130/71
--- NOTE | 2025-04-20 11:50 | W.PN.HOSP.TC ---
Addendum entered and electronically signed by Yohana Taylor MD 04/20/25 12:48:
Son was upset when he walked into room and saw antibiotics and fluids are stopped. I re-expressed that we stop medications that aren't related to comfort when someone is on hospice. I again stated that there is no safe way to give him nutrition
and he does not want artificial nutrition. We will allow full liquids for comfort but he will eventually aspiration and this will lead to him passing.
Original Note:
Today's Communication/Plan
-
comfort care hospice
family understands. we are starting a full liquid diet now with understanding this can lead to aspiration but we will treat symptoms with morphine. I told family patient may pass in manner of hours to days.
Assessment / Plan
Assessment / Plan
HPI: 79-year-old male past medical history of stage IV non-small cell lung cancer with widespread osseous metastatic disease on 4 L after recent treatment for pneumonia, chronic HFpEF, atrial fibrillation, hypertension, hyperlipidemia, COPD, BPH,
SIADH, presenting with dysphagia. He had dysphagia a year ago was cleared to have regular diet and medications. �He saw ENT who trialed PPI at that time without improvement. Patient recently admitted for pneumonia treated and discharged to [place]
[facility] on 4 L oxygen. �Patient represented to ER 3 days post discharge for weakness and dysphagia.
Brain MRI
IMPRESSION:
No acute intracranial abnormality within the limitations of motion artifact.
Severe Dysphagia
-patient now failed VSE x 2, he is clear that he would not want nutrition through a tube to be kept alive. Additionally, he has intermittently pulled out NGT and multiple IV's. It is dangerous to place PEG with risk he can pull it out leading to
peritonitis. Patient and family agree to hospice. Patient is of clear mind this morning.
#Acute on chronic hypoxic respiratory failure
patient now on room air
#Sepsis, present upon admission, from aspiration pneumonia
#History of COPD
stop antibiotics and wean off decadron in setting of hospice
#Altered mental status
Head CT negative, TSH 4.98. Pulmonology recommends discontinuation of fentanyl patch and sedating medications
Appreciate neurology input, suspect vascular and toxic metabolic encephalopathy, brain MRI without acute event
#Stage IV metastatic lung cancer
#Widespread osseous metastatic disease
-plan for hospice as above
#Severe constipation
-s/p enema
#Orthostatic hypotension
#Chronic HFpEF
Paroxysmal atrial fibrillation with rapid ventricular response
#Hx of SIADH
#Stage 2 sacral pressure injury and left buttock DTI pressure injury POA
Wound care
#Severe protein calorie malnutrition
DVT prophylaxis� not indicated on comfort care
DNR
51 minutes spent on patient care
Anticipated Discharge: 24 - 48 hours
Subjective/Interval History
-
Date of Service: April 20, 2025
patient seen post VSE
he failed swallow study again and states he would not want artificial nutrition
Objective Data
-
Labs:
Laboratory Results
04/20/25
05:37
Sodium 136
Potassium 4.1
Chloride 104
Carbon Dioxide 27
BUN 16
Creatinine 0.6 L
Glucose 115 H
Calcium 7.6 L
Vital Signs:
Vital Signs
Temp Pulse Resp BP Pulse Ox
97.6 F 65 16 130/71 97
04/20/25 11:22 04/20/25 11:22 04/20/25 11:22 04/20/25 11:22 04/20/25 11:22
I&O
04/19/25 04/20/25 04/21/25
06:59 06:59 06:59
Intake Total 0 / 0 700 / 700
Output Total 2620 / 2620 600 / 600 850 / 850
Balance -2620 / -2620 100 / 100 -850 / -850
Review of Systems
-
History Source: Patient
All other systems: Reviewed and negative
Physical Exam
-
General: No Apparent Distress, Comfortable, Appears Chronically Ill and Cachectic
HEENT: Normocephalic, Atraumatic and Anicteric
Respiratory: Clear to Auscultation
Cardiac: S1/S2 and Irregular Rhythm
GI: Soft, Nontender, Nondistended, Normal Bowel Sounds and Flat
Musculoskeletal: No Clubbing, No Cyanosis and No Edema
Skin: Warm and Dry
Neuro: Awake and Alert; Negative Oriented
Psych: Calm and Confused
Data Reviewed
-
Diagnostic Radiology: Report Reviewed by me
Labs: Labs Reviewed by me
[2025-04-20] MEDS: DECADRON 2 MG IV ×2 (11:51→23:10)
--- NOTE | 2025-04-20 11:55 | PTOTSP ---
Addendum entered and electronically signed by Leesa Marita MS, ST, CCC, ELECTRONICS SPECIALIST 04/20/25 12:49:
Diet consistency with that of full liquid diet recommended
Original Note:
Video Swallow Examination
Patient continues to present with a severe pharyngeal dysphagia with a mild oral stage component. No epiglottic inversion, diminished pharyngeal stripping wave and reduced distension of PES resulted in moderate to severe pharyngeal stasis, gross
tracheal aspiration of single sip of thin liquid, and trace laryngeal penetration across remaining trials/consistencies with eventual aspiration. Laryngeal penetration arose during swallow but most often from pharyngeal stasis. Cough response to
tracheal aspiration was weak and ineffective.
Strategies were unsuccessful in clearing pharyngeal stasis or protecting airway from laryngeal penetration/aspiration. This consistent aspiration coupled with debilitating illness/frailty places him at high risk for developing aspiration pneumonia
from consuming an oral diet. Results of this study reviewed with patient in fluoroscopy suite with patient acknowledging results and risks associated with oral diet. He stated he does not want a feeding tube. Goals of care are being addressed by
medical team with patient/family
Recommend
1. NPO -patient is not safe for oral diet given consistent aspiration. Non oral meds.
2. Pharyngeal strengthening exercises as patient able to complete.
However, if patient is opting for comfort and/or hospice care vs ongoing treatment then recommend
1. Mildly thick liquids given lesser degree of aspiration vs thin liquid.
2. Pudding texture did not clear well from pharyngeal space, therefore would allow level 4/pureed sparingly if at all.
3. Meds crushed in thick liquid.
4. Oral care at least 4 times daily
5. Allow ice chips after oral care.
--- NOTE | 2025-04-20 13:35 | HOSPNOTE ---
Spoke with family and discussed hospice and the philosophy. Two more brothers will be coming to discuss hospice. I will meet with the family and discuss. More information to follow.
[2025-04-20] MEDS: MORPHINE SULFATE 1 MG IV (15:19)
[2025-04-20 20:04] VITALS: BP 127/63
[2025-04-20] MEDS: XALATAN OPHTHALMIC SOLUTION 1 DROP BOTH EYES (21:50)
[2025-04-21] MEDS: MORPHINE SULFATE 1 MG IV ×3 (02:15→09:26)
[2025-04-21] MEDS: DUONEB 3 ML INH (07:26)
[2025-04-21 07:41] VITALS: BP 153/61
[2025-04-21] MEDS: NSS (PRESERVATIVE FREE) 10 ML IV (08:54)
[2025-04-21] MEDS: PROTONIX IV 40 MG IV (08:54)
[2025-04-21] MEDS: HYDROCORTISONE 1% LOTION TOPICAL (08:55)
--- NOTE | 2025-04-21 09:08 | W.PN.HOSP.TC ---
Today's Communication/Plan
-
follow up conversations with hospice team
Assessment / Plan
Assessment / Plan
HPI: 79-year-old male past medical history of stage IV non-small cell lung cancer with widespread osseous metastatic disease on 4 L after recent treatment for pneumonia, chronic HFpEF, atrial fibrillation, hypertension, hyperlipidemia, COPD, BPH,
SIADH, presenting with dysphagia. He had dysphagia a year ago was cleared to have regular diet and medications. �He saw ENT who trialed PPI at that time without improvement. Patient recently admitted for pneumonia treated and discharged to [facility] on 4 L oxygen. �Patient represented to ER 3 days post discharge for weakness and dysphagia.
Brain MRI
IMPRESSION:
No acute intracranial abnormality within the limitations of motion artifact.
Severe Dysphagia
-patient now failed VSE x 2, he is clear that he would not want nutrition through a tube to be kept alive. Additionally, he has intermittently pulled out NGT and multiple IV's. It is dangerous to place PEG with risk he can pull it out leading to
peritonitis. Patient and family agree to hospice. Patient is of clear mind this morning.
Acute on chronic hypoxic respiratory failure
patient now on room air
Sepsis, present upon admission, from aspiration pneumonia
History of COPD
stop antibiotics and wean off decadron
Altered mental status
Head CT negative, TSH 4.98. Pulmonology recommends discontinuation of fentanyl patch and sedating medications
Appreciate neurology input, suspect vascular and toxic metabolic encephalopathy, brain MRI without acute event
-now seems resolved
Stage IV metastatic lung cancer
Widespread osseous metastatic disease
-plan for hospice as above
Severe constipation
-s/p enema
Orthostatic hypotension
Chronic HFpEF
Paroxysmal atrial fibrillation with rapid ventricular response
Hx of SIADH
Stage 2 sacral pressure injury and left buttock DTI pressure injury POA
Wound care
Severe protein calorie malnutrition
DVT prophylaxis� not indicated on comfort care
DNR
51 minutes spent on patient care
Anticipated Discharge: 24 - 48 hours
Subjective/Interval History
-
Date of Service: April 21, 2025
patient is hungry this morning and wants to eat
Objective Data
-
Vital Signs:
Vital Signs
Temp Pulse Resp BP Pulse Ox
97.7 F 64 16 153/61 97
04/21/25 07:41 04/21/25 07:41 04/21/25 07:41 04/21/25 07:41 04/21/25 07:41
I&O
04/20/25 04/21/25 04/22/25
06:59 06:59 06:59
Intake Total 700 / 700
Output Total 600 / 600 1300 / 1300
Balance 100 / 100 -1300 / -1300
Review of Systems
-
History Source: Patient
All other systems: Reviewed and negative
Physical Exam
-
General: No Apparent Distress, Comfortable, Appears Chronically Ill and Cachectic
HEENT: Normocephalic, Atraumatic and Anicteric
Respiratory: Clear to Auscultation
Cardiac: S1/S2 and Irregular Rhythm
GI: Soft, Nontender, Nondistended, Normal Bowel Sounds and Flat
Musculoskeletal: No Clubbing, No Cyanosis and No Edema
Skin: Warm and Dry
Neuro: Awake and Alert
Psych: Calm
Data Reviewed
-
Diagnostic Radiology: Report Reviewed by me
Labs: Labs Reviewed by me
--- NOTE | 2025-04-21 09:16 | CM ---
Reviewed the chart notes. CM consult for hospice eval and treat received. Referral for Hospice placed in [facility]. CM continues to be available to patient/family.
Plan: Discharge plans will depend on the family's wishes.
--- NOTE | 2025-04-21 09:25 | HOSPNOTE ---
The patient will be admitted inpatient hospice for pain management requiring IV medications. Admissions was called and Attending and CM aware of plain and in agreement.
--- NOTE | 2025-04-21 09:35 | W.DS.TRANS ---
DC Summary - [employer]
-
Discharge Instructions:
Discharge Diagnosis/Procedures severe dysphagia
Additional Diets full liquid diet
Activity As tolerated
Driving Restrictions No driving
Bathing Restrictions None
Instructions:
Stand-Alone Forms:
Changes to Home Medications: Yes
Discharge Medications:
DC Medications w/original date entered in [employer]
bisacodyl 10 mg rectal suppository (Dulcolax (bisacodyl)) 10 mg NH DAILYPRN PRN if no bm x 3 days 05/14/24
albuterol sulfate 90 mcg/actuation aerosol inhaler 2 puff inhalation R Q6HPRN PRN sob 04/05/25
collagenase clostridium histo. 250 unit/gram topical ointment (Santyl) 1 applic topical DAILY Wound care 04/05/25
fluticasone 113mcg-salmeterol 14mcg/actuation breath act,powder sensor (AirDuo Digihaler) 1 inh inhalation R BID Lung/Breathing Issues 04/05/25
hydrocortisone 1 % lotion 1 applic topical DAILY Itchy areas, rash 04/05/25
latanoprost 0.005 % eye drops 1 drp BOTH EYES HS Eye Condition 04/05/25
lidocaine 4 % topical cream 1 applic topical Q4HPRN PRN mild pain 04/05/25
phenol 1.4 % mucosal aerosol spray (Sore Throat (phenol)) 3 spray PO Q2HPRN PRN sore throat #177 mL 04/21/25
Home Medication Changes
stop all meds not related to comfort
Pending Results: No
--- NOTE | 2025-04-21 10:00 | PTCARENOTE ---
Pt being admitted to inpatient hospice. See new chart for documentation.
--- NOTE | 2025-04-21 12:40 | W.DCSUMMARY ---
Discharge Summary
Discharge Data
Date of Admission: 04/15/25
Date of Discharge: 04/21/25
-
Pending Results: No
Hospital Course
Discharging Physician : Dr. Yohana Taylor
Disposition : inpatient hospice
Principal Discharge diagnosis : Severe Dysphagia, Metastatic Lung Cancer
Hospital Course :
*Please see daily progress notes for full details
Mr. Adolfo Higgins is a 79 yo man with hx stage IV non-small cell lung cancer with widespread osseous metastatic disease, hypoxic respiratory failure on 4 L after recent treatment for pneumonia, chronic HFpEF, atrial fibrillation, hypertension,
hyperlipidemia, COPD, BPH, SIADH, presenting with difficulty swallowing. He was admitted for ST eval and continued treatment of prior pneumonia. Overnight of admission he had change in mentation with lethargy with increased oxygen need to 10L.
Concern raised for aspiration event and sepsis secondary to aspiration pneumonia. His antibiotics were changed to IV and broadened.
Patient's mentation slowly improved. VSE obtained which showed he had severe dysphagia to all consistencies. NGT placed but this was ripped out by patient. He went in and out of delirium but while lucid was clear that he did not want artificial
nutrition. Given concern that drug effect and TME contributed to initial failed VSE, this was repeated on 04/20 when patient's mentation had improved and he was off of opiates. He again showed that he cannot safely swallow any consistencies.
After multiple goals of care discussions with patient and family (between Hospitalist attendings and specialists including Neurology, Oncology and Pulmonary), decision made to transition to comfort and admit to inpatient hospice.
Time spent on discharge was 35 minutes.
Important imaging findings :
Procedure findings :
Discharge Plan
-
Patient Disposition: Hospice - Inpatient
Discharge Diagnosis/Procedures: severe dysphagia
Additional Diets: full liquid diet
Activity: As tolerated
Driving Restrictions: No driving
Bathing Restrictions: None
Activity Restrictions/Additional Instructions:
Wound Care Instructions
L buttock: clean with soap and water, silicone foam change q other day and prn soilage
air mattress
Referrals:
[facility] [Other]
Akilah Jacobo DO [Family Provider, General]
Caleb Boateng MD [Active, Pulmonary Medicine] - in two to four weeks
Prescriptions:
New
Sore Throat (phenol) 1.4 % Aerosol,[place]
3 spray PO Q2HPRN PRN (Reason: sore throat) Qty: 177 0RF
Continued
bisacodyl [Dulcolax (bisacodyl)] 10 mg Suppository
10 mg TN DAILYPRN PRN (Reason: if no bm x 3 days)
latanoprost 0.005 % Drops
1 drp BOTH EYES HS
hydrocortisone 1 % Lotion
1 applic TOPICAL DAILY
lidocaine 4 % Cream
1 applic TOPICAL Q4HPRN PRN (Reason: mild pain)
Santyl 250 unit/gram Ointment
1 applic TOPICAL DAILY
albuterol sulfate 90 mcg/actuation Hfa Aerosol Inhaler
2 puff INHALATION R Q6HPRN PRN (Reason: sob)
AirDuo Digihaler 113 mcg-14 mcg/actuation Aero Powdr Breath Act W/Sensor
1 inh INHALATION R BID
Discontinued
sennosides-docusate sodium [Senokot-S] 8.6-50 mg Tablet
2 tab-cap PO BIDPRN PRN (Reason: constipation)
psyllium Packet
1 packet PO DAILY
gabapentin 300 mg capsule
300 mg PO HS
calcium carbonate 500 mg calcium (1,250 mg) Tablet
1,000 mg PO BID Qty: 0
Fleet Enema 19-7 gram/118 mL Enema
118 ml TN DAILYPRN PRN (Reason: IF NO BM X4 DAYS)
midodrine 5 mg Tablet
10 mg PO TID@0800,1300,1800 Qty: 90 0RF
sodium chloride 1 gram Tablet
1,000 mg PO BID
magnesium hydroxide [Milk of Magnesia] 400 mg/5 mL Suspension
2,400 mg PO HSPRN PRN (Reason: if no bm by 2nd day)
pantoprazole [Protonix] 40 mg Tablet,Delayed Release (Dr/Ec)
40 mg PO DAILY
mirtazapine [Remeron] 15 mg Tablet
15 mg PO HS
cholecalciferol (vitamin D3) [Vitamin D3] 50 mcg (2,000 unit) Capsule
50 mcg PO BID
Keytruda 25 mg/mL Solution
200 mg IV Q21D
magnesium oxide 400 mg magnesium Tablet
400 mg PO DAILY
furosemide 20 mg Tablet
20 mg PO DAILY Qty: 30 11RF
Eliquis 5 mg Tablet
2.5 mg PO BID Qty: 60 11RF
amiodarone [Pacerone] 200 mg Tablet
200 mg PO BID Qty: 60 0RF
Rx Instructions:
BID for 1 month then once daily thereafter
amiodarone 200 mg tablet
200 mg PO DAILY Qty: 30 11RF
Rx Instructions:
BID for 1 month then once daily thereafter
prednisone 10 mg Tablet
See Rx Instructions .ROUTE .COMPLEX Qty: 30 0RF
Rx Instructions:
Take By Mouth:
40 mg daily x3 days, 30 mg daily x3 days,
20 mg daily x3 days, 10 mg daily x3 days.
cefdinir 300 mg capsule
300 mg PO BID Qty: 14 0RF
Rx Instructions:
Please take cefdinir 300 mg twice a day for 7 days
guaifenesin 600 mg Tablet Extended Release 12hr
1,200 mg PO Q12 Qty: 14 0RF
acetaminophen 325 mg Tablet
650 mg PO Q6H Qty: 30 0RF
Rx Instructions:
Please take Tylenol as needed for shoulder pain, but do not exceed 4000 mg/day. Please limit your Tylenol because of your LFTs increasing previously on Tylenol
fentanyl 25 mcg/hr Patch 72 Hour
1 patch TRANSDERMAL Q72H Qty: 1 0RF
Patient Comments:
with 12 mcg=37mcg
oxycodone 5 mg tablet
5 mg PO Q6HPRN PRN (Reason: severe pain) Qty: 3 0RF
Rx Instructions:
NO MORE THAN 4 TAB IN 24 HR
fentanyl 12 mcg/hr Patch 72 Hour
1 patch TRANSDERMAL Q72H Qty: 1 0RF
atorvastatin 80 mg Tablet
80 mg PO HS
Discharge Orders:
Discharge Patient (As Directed); Ordered 04/21/25
Ordered By: Yohana Taylor
Discharge Date and Time
Discharge Date/Time: 04/21/25 09:58
Print Language: CHINESE
== END 2025-04-21 09:58 | disposition hospice, inpatient (51) | DRG 871 ==
LOC: 2 NORTH 11:13
PROVIDERS: Family Medicine; Nurse Practitioner Family; Radiology Diagnostic Radiology; Registered Nurse; ADMITTING PHYSICIAN Hospitalist; ATTENDING PHYSICIAN Student in an Organized Health Care Education/Training Program; CONSULT PHYSICIAN Internal Medicine Cardiovascular Disease; CONSULT PHYSICIAN Internal Medicine Critical Care Medicine; CONSULT PHYSICIAN Internal Medicine Hematology & Oncology; CONSULT PHYSICIAN Psychiatry & Neurology Neurology; EMERGENCY PHYSICIAN Emergency Medicine; FAMILY PHYSICIAN Family Medicine; REFERRING PHYSICIAN Family Medicine
PROC: 0DH67UZ Insertion of Feeding Device into Stomach, Via Natural or Artificial Opening (ICD-10-PCS; 2025-04-16)
DX: A41.9 Sepsis, unspecified organism (principal); E43 Unspecified severe protein-calorie malnutrition; J18.9 Pneumonia, unspecified organism; G92.8 Other toxic encephalopathy; J96.21 Acute and chronic respiratory failure with hypoxia; J96.22 Acute and chronic respiratory failure with hypercapnia; J69.0 Pneumonitis due to inhalation of food and vomit; C79.51 Secondary malignant neoplasm of bone; C34.90 Malignant neoplasm of unspecified part of unspecified bronchus or lung; I50.32 Chronic diastolic (congestive) heart failure; F11.20 Opioid dependence, uncomplicated; I87.1 Compression of vein; C78.6 Secondary malignant neoplasm of retroperitoneum and peritoneum; Z68.1 Body mass index [BMI] 19.9 or less, adult; E87.20 Acidosis, unspecified; D84.9 Immunodeficiency, unspecified; I48.20 Chronic atrial fibrillation, unspecified; Z51.5 Encounter for palliative care; R13.10 Dysphagia, unspecified; J43.9 Emphysema, unspecified; M25.511 Pain in right shoulder; I11.0 Hypertensive heart disease with heart failure; F17.200 Nicotine dependence, unspecified, uncomplicated; N40.0 Benign prostatic hyperplasia without lower urinary tract symptoms; I48.0 Paroxysmal atrial fibrillation; K21.9 Gastro-esophageal reflux disease without esophagitis; F32.A Depression, unspecified; F41.9 Anxiety disorder, unspecified; I95.1 Orthostatic hypotension; G47.33 Obstructive sleep apnea (adult) (pediatric); G89.29 Other chronic pain; E78.00 Pure hypercholesterolemia, unspecified; K59.00 Constipation, unspecified; L89.152 Pressure ulcer of sacral region, stage 2; L89.326 Pressure-induced deep tissue damage of left buttock; E83.39 Other disorders of phosphorus metabolism; F02.80 Dementia in other diseases classified elsewhere, unspecified severity, without behavioral disturbance, psychotic disturbance, mood disturbance, and anxiety; R47.1 Dysarthria and anarthria; G20.C Parkinsonism, unspecified; E03.9 Hypothyroidism, unspecified; E04.2 Nontoxic multinodular goiter; F10.21 Alcohol dependence, in remission; I71.20 Thoracic aortic aneurysm, without rupture, unspecified; I35.8 Other nonrheumatic aortic valve disorders; G89.3 Neoplasm related pain (acute) (chronic); I25.10 Atherosclerotic heart disease of native coronary artery without angina pectoris; Z66 Do not resuscitate; Z87.19 Personal history of other diseases of the digestive system; Z87.01 Personal history of pneumonia (recurrent); Z85.118 Personal history of other malignant neoplasm of bronchus and lung; Z88.6 Allergy status to analgesic agent; Z88.8 Allergy status to other drugs, medicaments and biological substances; Z79.899 Other long term (current) drug therapy; Z79.01 Long term (current) use of anticoagulants; Z92.3 Personal history of irradiation; Z90.49 Acquired absence of other specified parts of digestive tract
CPT/HCPCS: 36600; 70450; 70553; 71045; 74018; 74230; 80048; 81003; 81015; 82140; 82805; 83735; 84100; 84443; 85025; 85027; 87070; 87086; 92526; 92610; 92611; 94640; 97163; 97167; 97530; 99284; A9575

== ENCOUNTER 2025-04-21 09:59 | Inpatient (IN) | payer OTHER, SELFPAY ==
[2025-04-21 08:00] VITALS: BP 153/61
--- NOTE | 2025-04-21 10:46 | CM ---
Reviewed the chart notes. Patient has transitioned to GIP level of hospice. CM continues to be available to patient/family.
Plan: GIP hospice.
[2025-04-21] MEDS: ROBINUL 0.2 MG IV ×2 (11:27→15:53)
[2025-04-21] MEDS: MORPHINE SULFATE 2 MG IV ×5 (11:27→21:43)
[2025-04-21] MEDS: VALIUM INJECTION 2 MG IV ×3 (11:52→18:51)
--- NOTE | 2025-04-21 12:11 | HOSPNOTE ---
Patient will be admitted inpatient hospice for pain and agitation requiring IV medications. CM updated and aware of plan. Patient will be seen daily by hospice.
--- NOTE | 2025-04-21 12:50 | HPS.HSE ---
Family Physician
-
Family Physician: INTERVIEWE UNKNOWN - PT NOT
Chief Complaint
-
inpatient hospice
History of Present Illness
Mr. Adolfo Higgins is a 79 yo man with hx stage IV non-small cell lung cancer with widespread osseous metastatic disease, hypoxic respiratory failure on 4 L after recent treatment for pneumonia, chronic HFpEF, atrial fibrillation, hypertension,
hyperlipidemia, COPD, BPH, SIADH, presenting with difficulty swallowing. He was admitted for ST eval and continued treatment of prior pneumonia. Overnight of admission he had change in mentation with lethargy with increased oxygen need to 10L.
Concern raised for aspiration event and sepsis secondary to aspiration pneumonia. His antibiotics were changed to IV and broadened.
Patient's mentation slowly improved. VSE obtained which showed he had severe dysphagia to all consistencies. NGT placed but this was ripped out by patient. He went in and out of delirium but while lucid was clear that he did not want artificial
nutrition. Given concern that drug effect and TME contributed to initial failed VSE, this was repeated on 04/20 when patient's mentation had improved and he was off of opiates. He again showed that he cannot safely swallow any consistencies.
After multiple goals of care discussions with patient and family (between Hospitalist attendings and specialists including Neurology, Oncology and Pulmonary), decision made to transition to comfort and admit to inpatient hospice.
Medical History
Past Medical History
Past Medical History: Reports Other
Additional Past Medical History:
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
SVC Syndrome
Chronic Pain with Opioid Dependence
Paroxysmal Atrial Fibrillation
Chronic HFpEF
SIADH
Essential Hypertension
Hyperlipidemia
COPD
BPH
Past Surgical History: Reports Other
Additional Past Surgical History:
Appendectomy
Hernia Repair
Right Shoulder Surgery
Left Wrist Carpectomy
Bilateral Cataracts
Social History
Tobacco: Former Smoker
Alcohol: None
Drug: None
Personal:
Family History
Family History: Not pertinent
Allergies / Home Medications
Allergies reflects when Allergies were last updated in [facility].
Home Medications with original date entered in [facility]
Allergy/Medication List:
Allergies
Allergy/AdvReac Type Severity Reaction Status Date / Time
acetaminophen Allergy LFT Verified 04/14/25 21:35
abnormalities
levetiracetam (From [facility]) Allergy Fatigue Verified 04/14/25 21:36
pollen extracts Allergy HAYFEVER-Sneezing, Verified 04/14/25 21:35
watery/itchy
eyes,
stuffy nose
Home Medications
bisacodyl 10 mg rectal suppository (Dulcolax (bisacodyl)) 10 mg RI DAILYPRN PRN if no bm x 3 days 05/14/24
albuterol sulfate 90 mcg/actuation aerosol inhaler 2 puff inhalation R Q6HPRN PRN sob 04/05/25
collagenase clostridium histo. 250 unit/gram topical ointment (Santyl) 1 applic topical DAILY Wound care 04/05/25
fluticasone 113mcg-salmeterol 14mcg/actuation breath act,powder sensor (AirDuo Digihaler) 1 inh inhalation R BID Lung/Breathing Issues 04/05/25
hydrocortisone 1 % lotion 1 applic topical DAILY Itchy areas, rash 04/05/25
latanoprost 0.005 % eye drops 1 drp BOTH EYES HS Eye Condition 04/05/25
lidocaine 4 % topical cream 1 applic topical Q4HPRN PRN mild pain 04/05/25
phenol 1.4 % mucosal aerosol spray (Sore Throat (phenol)) 3 spray PO Q2HPRN PRN sore throat #177 mL 04/21/25
Review of Systems
-
History Source: Patient
A 12 point ROS was completed and negative except as noted: Yes
Physical Exam
Vital Signs
Vital Signs
Temp Pulse Resp BP Pulse Ox
98.3 F 75 20 106/62 95
04/14/25 16:23 04/14/25 16:23 04/14/25 16:23 04/14/25 16:23 04/14/25 16:37
Physical Exam
General: Well Developed, No Apparent Distress, Comfortable, Appears Chronically Ill and Cachectic
HEENT: NormoCephalic, Anicteric, Moist mucous membranes, Nose Appears Normal and Ears Appear Normal
Respiratory: Clear, Non Labored Respirations and Other (moist cough )
Cardiac: S1/S2 and Regular Rhythm; No Murmur, Rub or Gallop
GI: Soft, Non Tender, Non Distended and Normal Bowel Sounds
Musculoskeletal: No Clubbing and No Cyanosis; No Edema, Left Upper Extremity, Edema, Right Upper Extremity, Edema, Left Lower Extremity or Edema, Right Lower Extremity
Skin: Warm and Dry
Neuro: Awake, AO x 3 and Nonfocal/grossly intact
Psych: Calm
Data Reviewed
-
Diagnostic Radiology: Report Reviewed by me
Lab Data: Labs Reviewed by me
Impression/Plan
-
Severe Dysphagia
Stage IV Metastatic Lung Cancer
Hospital Acquired Delirium
Severe Protein Calorie Malnutrition
-admit to inpatient hospice
-allow for full liquid diet (after discussion with ST and patient)
-IV morphine PRN with progression to gtt
-IV Valium PRN
-appreciate tactical deception plans officer
Paroxysmal Atrial Fibrillation with RVR
DNR
76 minutes spent on patient care
--- NOTE | 2025-04-21 15:18 | HOSPNOTE ---
Patient admitted to Hospice, consents signed by his Franchesca. Patient admitted GIP for management of pain and agitation that can not be managed in an outpatient setting. Discharge planning will commence when symptoms are managed. Hospice
will visit daily
[2025-04-21 20:20] VITALS: BP 147/72
--- NOTE | 2025-04-21 23:40 | PTCARENOTE ---
04/21: pt assessed. no audible heartsounds or respirations. barn boss notified for pronouncing pt .
--- NOTE | 2025-04-22 01:35 | W.PN.DEATH ---
Pronouncement of
-
Called to see patient to pronounce.
No spontaneous heart tones or respirations noted.
Patient not responsive to verbal stimuli.
Patient is pronounced .
Time of : 23:40
Date of : 04/21/25
Cause of : Hypoxic respiratory failure, pneumonia, Stage IV metastatic lung cancer, Severe dysphagia, paroxysmal atrial fibrillation with rapid ventricular response
Family Notified: Yes (Called and spoke with patient's , [facility])
--- NOTE | 2025-04-22 03:31 | PTCARENOTE ---
04/22:pt's family notified. per family, pt's last will and testament includes final wishes of an autopsy. pnp and nurse data processing supervisor notified. iv left in. postmortem care performed per protocol.
== END 2025-04-21 23:40 | disposition expired | DRG 951 ==
LOC: 2 NORTH 09:59
PROVIDERS: ADMITTING PHYSICIAN Student in an Organized Health Care Education/Training Program
DX: Z51.5 Encounter for palliative care (principal); J18.9 Pneumonia, unspecified organism; J96.91 Respiratory failure, unspecified with hypoxia; E43 Unspecified severe protein-calorie malnutrition; C34.90 Malignant neoplasm of unspecified part of unspecified bronchus or lung; C79.51 Secondary malignant neoplasm of bone; I50.32 Chronic diastolic (congestive) heart failure; E22.2 Syndrome of inappropriate secretion of antidiuretic hormone; F05 Delirium due to known physiological condition; I87.1 Compression of vein; F11.20 Opioid dependence, uncomplicated; J44.0 Chronic obstructive pulmonary disease with (acute) lower respiratory infection; R13.10 Dysphagia, unspecified; I11.0 Hypertensive heart disease with heart failure; I48.0 Paroxysmal atrial fibrillation; G89.29 Other chronic pain; E78.5 Hyperlipidemia, unspecified; N40.0 Benign prostatic hyperplasia without lower urinary tract symptoms; Z66 Do not resuscitate; Z87.01 Personal history of pneumonia (recurrent); Z87.891 Personal history of nicotine dependence; Z88.6 Allergy status to analgesic agent; Z88.8 Allergy status to other drugs, medicaments and biological substances